=== PATIENT | female | born 1950 | race Caucasian/White ===

== ENCOUNTER 2018-01-18 21:06 | Outpatient (REF) | payer MEDICARE, SELFPAY ==
[2018-01-18 23:10] LABS: HCT 41.4 % (36.0-46.0); HGB 13.8 g/dL (12.0-15.5); Mean Corp. HGB Concentration 33.3 g/dL (32.0-36.0); Mean Corpuscular Hemoglobin 32.5 pg (27.0-33.0); Mean Corpuscular Volume 97.4 fL (80-95); Mean Platelet Volume 10.3 fL (8.0-11.0); Platelet Count 144 x1000/uL (130-400); RBC 4.25 m/cumm (4.00-5.20); RBC Distribution Width 13.3 % (11.7-14.6); White Blood Cell Count 4.64 k/cumm (4.4-10.8)
[2018-01-18 23:33] LABS: ALT 37 U/L (12-78); AST 42 U/L (15-37); Albumin 3.7 g/dL (3.4-5.0); Alkaline Phosphatase 125 U/L (46-116); Anion Gap 8.5 mmol/L (3-11); BUN 9 mg/dL (7-18); CO2 25.5 mmol/L (21.0-32.0); CREATININE 0.53 mg/dL (0.55-1.02); Calcium 8.9 mg/dL (8.5-10.1); Chloride 105 mmol/L (98-107); Glucose 71 mg/dL (70-100); Lipase 87 U/L (73-393); Potassium 3.7 mmol/L (3.5-5.1); Sodium 139 mmol/L (136-145); TSH 0.03 uIU/mL (0.358-3.74); Total Protein 6.9 g/dL (6.4-8.2)
[2018-01-21 09:31] LABS: IgA 330 mg/dL (85-499); Interpretation SEE COMMENTS; Tissue Transglutaminase IgA <1.2 U/mL (<4.0)
== END 2018-01-18 21:26 ==
LOC: NCHCN 21:06
PROVIDERS: PCP Nurse Practitioner Family; Visit Provider Internal Medicine
DX: R10.13 Epigastric pain (principal); E03.9 Hypothyroidism, unspecified
CPT/HCPCS: 80053; 82784; 83516; 83690; 85027; 84443

== ENCOUNTER 2018-03-01 01:49 | Outpatient (CLI) | payer MEDICARE, SELFPAY ==
--- NOTE | 2018-03-01 08:01 | PFT_ITS ---
DATE OF SERVICE: March 01, 2018 REQUESTING PROVIDER: Rico Aburto M.D. INTERPRETATION OF STUDY: Spirometry shows mild obstructive airways disease with significant bronchodilator response. LUNG VOLUMES: Show no evidence of restriction. There is mild hyperinflation. DIFFUSION CAPACITY: Normal. AIRWAYS RESISTANCE: Elevated. IMPRESSION: Mild obstructive airways disease with significant bronchodilator response. This is associated with mild hyperinflation and elevated airways resistance. Clinical correlation recommended. VJ/ct D/T: 03/02 cc: Rico Aburto M.D. SEE SCANNED DOCUMENT IN THE EMR FOR DATA AND GRAPHS
[2018-03-01] MEDS: Inhaler, Assist Device 1 EACH MC (09:09)
[2018-03-01] MEDS: Albuterol HFA 18 GM 200 PUFF INH IH (09:10)
== END 2018-03-01 02:09 ==
PROVIDERS: PCP Nurse Practitioner Family; Visit Provider Internal Medicine
DX: J45.40 Moderate persistent asthma, uncomplicated (principal)
CPT/HCPCS: 94060; 94150; 94726; 94729

== ENCOUNTER 2018-03-11 16:14 | Outpatient (REF) | payer MEDICARE, SELFPAY ==
[2018-03-11 21:08] LABS: Anion Gap 7.3 mmol/L (3-11); BUN 14 mg/dL (7-18); CO2 27.7 mmol/L (21.0-32.0); CREATININE 0.55 mg/dL (0.55-1.02); Chloride 105 mmol/L (98-107); Glucose 88 mg/dL (70-100); Sodium 140 mmol/L (136-145); TSH 0.43 uIU/mL (0.358-3.74)
== END 2018-03-11 16:34 ==
LOC: NCHCN 16:14
PROVIDERS: PCP Nurse Practitioner Family; Visit Provider Internal Medicine
DX: I10 Essential (primary) hypertension (principal); E03.9 Hypothyroidism, unspecified
CPT/HCPCS: 80048; 84443

== ENCOUNTER 2018-03-15 00:07 | Outpatient (CLI) | payer MEDICARE, SELFPAY ==
--- NOTE | 2018-03-15 13:20 | DI.RAD_ITS ---
SYMPTOMS/DIAGNOSIS: SCREENING FOR OSTEOPOROSIS IN POSTMENOPAUSAL WOMAN, Z78.0 DEXA SCAN: Routine examination. No priors for comparison. The single lateral view of the spine shows no compression deformities. Evaluation of the left hip shows a total T score of -0.7 and a Z score of 0.7, which is within normal limits. Evaluation of the lumbar spine shows a total T score of -1.2 and a Z score of 0.7. This is consistent with osteopenia and an increased fracture risk. No osteoporosis is seen. IMPRESSION: Osteopenia in the lumbar spine. No evidence of osteoporosis.
== END 2018-03-15 00:27 ==
PROVIDERS: PCP Nurse Practitioner Family; Visit Provider Internal Medicine
DX: M85.88 Other specified disorders of bone density and structure, other site (principal); Z78.0 Asymptomatic menopausal state
CPT/HCPCS: 77080

== ENCOUNTER 2018-11-04 16:39 | Outpatient (REF) | payer MEDICARE, SELFPAY | END 2018-11-04 16:59 | LOC: NCHCN 16:39 | PROVIDERS: PCP Nurse Practitioner Family; Visit Provider Internal Medicine | DX: E03.9 Hypothyroidism, unspecified (principal) | CPT/HCPCS: 84443 ==

== ENCOUNTER 2018-11-09 08:31 | Outpatient (REF) | payer MEDICARE, SELFPAY ==
[2018-11-09 13:02] LABS: Glucose 77 mg/dL (70-100)
== END 2018-11-09 08:51 ==
LOC: NCHCN 08:31
PROVIDERS: PCP Nurse Practitioner Family; Visit Provider Internal Medicine
DX: E66.9 Obesity, unspecified (principal); Z13.1 Encounter for screening for diabetes mellitus
CPT/HCPCS: 82947

== ENCOUNTER 2019-11-16 13:32 | Outpatient (REF) | payer MEDICARE, SELFPAY ==
[2019-11-16 20:54] LABS: FREE T4 1.39 ng/dL (0.76-1.46); TSH 0.51 uIU/mL (0.36-3.74)
== END 2019-11-16 13:52 ==
LOC: NCHCN 13:32
PROVIDERS: PCP Nurse Practitioner Family; Visit Provider Internal Medicine
DX: E03.9 Hypothyroidism, unspecified (principal)
CPT/HCPCS: 84439; 84443

== ENCOUNTER 2019-12-21 10:55 | Outpatient (REF) | payer MEDICARE, SELFPAY ==
[2019-12-21 20:35] LABS: Abs Immature Grans 0.01 10^3/uL (0.0-0.06); Absolute Basophil Count 0.06 10^3/uL (0.0-0.2); Absolute Eosinophil Count 0.18 10^3/uL (0.0-0.7); Absolute Lymphocyte Count 0.84 10^3/uL (1.2-3.4); Absolute Monocyte Count 0.52 10^3/uL (0.1-0.8); Absolute Neutrophil Count 2.96 10^3/uL (1.2-6.7); Basophils % 1.3; Eosinophils % 3.9; HCT 41.6 % (36.0-46.0); HGB 13.8 g/dL (11.2-15.7); Immature Grans % 0.2; Lymphocytes % 18.4; MCH 32.4 pg (27.0-33.0); MCHC 33.2 % (32.0-36.0); MCV 97.7 fL (80-95); MPV 10.7 fL (8.0-11.0); Monocytes % 11.4; Neutrophils % 64.8; Nucleated RBC 0 %; Platelet Count 159 10^3/uL (130-400); RBC 4.26 10^6/uL (3.93-5.22); RDW 13.2 % (11.7-14.6); RDW-SD 47.7 fL; WBC 4.57 10^3/uL (4.4-10.8)
[2019-12-21 21:24] LABS: ALT 35 U/L (14-59); AST 36 U/L (15-37); Albumin 3.8 g/dL (3.4-5.0); Alkaline Phosphatase 104 U/L (46-116); BUN 15 mg/dL (7-18); Bilirubin, Total 0.9 mg/dL (0.2-1.0); CREATININE 0.48 mg/dL (0.55-1.02); Calcium 9.3 mg/dL (8.5-10.1); Chloride 106 mmol/L (98-107); Glucose 83 mg/dL (74-106); Sodium 141 mmol/L (136-145); Total Protein 6.7 g/dL (6.4-8.2); Vitamin B12 550 pg/mL (193-986)
[2019-12-22 08:39] LABS: Lipase 80 U/L (73-393)
== END 2019-12-21 11:15 ==
LOC: NCHCN 10:55
PROVIDERS: PCP Nurse Practitioner Family; Visit Provider Internal Medicine
DX: R10.13 Epigastric pain (principal)
CPT/HCPCS: 80053; 83690; 82607; 85025

== ENCOUNTER 2021-02-18 16:49 | Outpatient (REF) | payer MEDICARE, SELFPAY ==
[2021-02-18 22:24] LABS: ALT 42 U/L (14-59); AST 40 U/L (15-37); Albumin 3.9 g/dL (3.4-5.0); Alkaline Phosphatase 127 U/L (46-116); Anion Gap 8.8 mmol/L (3-11); BUN 15 mg/dL (7-18); Bilirubin, Total 1.3 mg/dL (0.2-1.0); CO2 27.2 mmol/L (21.0-32.0); CREATININE 0.6 mg/dL (0.55-1.02); Calcium 9.1 mg/dL (8.5-10.1); Calculated LDL 182 mg/dL (<100); Chloride 106 mmol/L (98-107); Cholesterol 290 mg/dL (<200); Glucose 85 mg/dL (74-106); HDL Cholesterol 99 mg/dL (40-60); Magnesium 1.9 mg/dL (1.8-2.4); Sodium 142 mmol/L (136-145); Total Protein 7.1 g/dL (6.4-8.2); Triglyceride 45 mg/dL (<150); Vitamin B12 424 pg/mL (193-986)
== END 2021-02-18 16:50 | disposition home or self-care (01) ==
LOC: NCHCN 16:49
PROVIDERS: PCP Nurse Practitioner Family; Visit Provider Nurse Practitioner Family
DX: E66.9 Obesity, unspecified (principal); G47.00 Insomnia, unspecified; K21.9 Gastro-esophageal reflux disease without esophagitis; E03.9 Hypothyroidism, unspecified; I10 Essential (primary) hypertension
CPT/HCPCS: 80053; 80061; 82607; 83735; 84439; 84443

== ENCOUNTER 2021-09-12 18:29 | Outpatient (REF) | payer MEDICARE, SELFPAY ==
[2021-09-12 20:48] LABS: Absolute Basophil Count 0.06 10^3/uL (0.0-0.2); Absolute Eosinophil Count 0.22 10^3/uL (0.0-0.7); Absolute Lymphocyte Count 0.94 10^3/uL (1.2-3.4); Absolute Monocyte Count 0.57 10^3/uL (0.1-0.8); Absolute Neutrophil Count 1.99 10^3/uL (1.2-6.7); Basophils % 1.6; Eosinophils % 5.8; HGB 14.3 g/dL (11.2-15.7); Lymphocytes % 24.9; MCH 32.4 pg (27.0-33.0); MCHC 33.3 % (32.0-36.0); MCV 98 fL (80-95); MPV 10.2 fL (8.0-11.0); Monocytes % 15.1; Neutrophils % 52.6; Platelet Count 135 10^3/uL (130-400); RBC 4.41 10^6/uL (3.93-5.22); RDW 12.9 % (11.7-14.6); RDW-SD 46.2 fL; WBC 3.78 10^3/uL (4.4-10.8)
[2021-09-12 21:14] LABS: ALT 33 U/L (14-59); AST 37 U/L (15-37); Alkaline Phosphatase 126 U/L (46-116); Anion Gap 9.8 mmol/L (3-11); BUN 11 mg/dL (7-18); Bilirubin, Total 1.5 mg/dL (0.2-1.0); CO2 24.2 mmol/L (21.0-32.0); CREATININE 0.5 mg/dL (0.55-1.02); Calcium 9.2 mg/dL (8.5-10.1); Chloride 107 mmol/L (98-107); Glucose 81 mg/dL (74-106); Magnesium 1.9 mg/dL (1.8-2.4); Potassium 4.1 mmol/L (3.5-5.1); Sodium 141 mmol/L (136-145); TSH (W/Ref FT4) 1.29 uIU/mL (0.36-3.74); Total Protein 6.9 g/dL (6.4-8.2); Vitamin B12 585 pg/mL (193-986)
[2021-09-15 11:05] LABS: CA 125 26 U/mL (<30)
== END 2021-09-12 18:30 | disposition home or self-care (01) ==
LOC: NCHCN 18:29
PROVIDERS: PCP Nurse Practitioner Family; Visit Provider Nurse Practitioner Family
DX: G47.62 Sleep related leg cramps (principal); N83.9 Noninflammatory disorder of ovary, fallopian tube and broad ligament, unspecified
CPT/HCPCS: 80053; 86304; 82607; 83735; 84443; 85025

== ENCOUNTER 2022-10-06 15:02 | Outpatient (REF) | payer MEDICARE, SELFPAY ==
[2022-10-06 21:18] LABS: TSH (W/Ref FT4) 3.43 uIU/mL (0.36-3.74); Vitamin B12 497 pg/mL (193-986)
[2022-10-06 21:59] LABS: Vitamin D 25 Total 48.7 ng/mL (30-100)
== END 2022-10-06 15:03 | disposition home or self-care (01) ==
LOC: NCHCN 15:02
PROVIDERS: PCP Nurse Practitioner Family; Visit Provider Nurse Practitioner Family
DX: E03.9 Hypothyroidism, unspecified (principal); F41.9 Anxiety disorder, unspecified
CPT/HCPCS: 82306; 82607; 84443

== ENCOUNTER → 2022-10-13 08:50 | Outpatient (BNVA) | payer MEDICARE, SELFPAY | PROVIDERS: PCP Nurse Practitioner Family; Referring Provider Nurse Practitioner Family; Visit Provider Nurse Practitioner Adult Health | DX: R41.3 Other amnesia (principal); K76.82 Hepatic encephalopathy | CPT/HCPCS: 99204 ==

== ENCOUNTER 2022-10-20 14:10 | Emergency (ER) | payer MEDICARE, SELFPAY ==
[2022-10-20 14:13] VITALS: BP 133/75; PULSE 95; RESP 20; TEMP 36.7; O2SAT 95
--- NOTE | 2022-10-20 14:30 | DI.RAD_ITS ---
Exam(s) XR PORTABLE CHEST AP EXAM: XR PORTABLE CHEST AP CLINICAL HISTORY: dizzy TECHNIQUE: 2D digital imaging was performed of the chest. One image was obtained. An AP view was ob tained. COMPARISON: No exams were available for comparison FINDINGS: MEDIASTINUM: Normal. HEART: Normal. PULMONARY VASCULATURE: Normal. LUNGS: Clear. PLEURAL SPACE: No pleural effusion or pneumothorax. BONE:Within normal limits for the patient's age. OTHER FINDINGS:Normal. IMPRESSION: No acute pulmonary findings. DATA REPOSITORY: RADIATION DOSE DELIVERED:
--- NOTE | 2022-10-20 14:30 | DI.CT_ITS ---
Exam(s) CT HEAD WO EXAM: CT HEAD WO CLINICAL HISTORY: dizziness. TECHNIQUE: Imaging Protocol: Axial computed tomography images with coronal and sagittal reformatted images were created and reviewed COMPARISON: No exams were available for comparison FINDINGS: Ventricles and Extra axial spaces: Normal in size and morphology for the patient's age. Hemorrhage: None. Cerebral parenchyma: There is no evidence of an acute territorial infarct. There are subtle areas of decreased attenuation in the white matter most consistent with small vessel ischemic disease. Midline shift: None. Brainstem/Cerebellum: Normal. Calvarium: Normal. Visualized Paranasal sinuses/Mastoids: There is mild mucosal thickening in the left maxillary sinus. The remaining visualized paranasal sinuses are clear as are the mastoid air cells. Soft Tissues: Unremarkable. IMPRESSION: 1. No acute intracranial process. 2. Findings were discussed with Dr. Marie Carias at 4:59 p.m. on 10/20/2020. RADIATION DOSE DELIVERED: 610.21mGy.cm Total DLP DATA REPOSITORY: All CT scans at this facility are submitted to the National Radiology Data Registry (NRDR) Dose Index Registry (DIR) with the [employer] (A[employer]). RADIATION OPTIMIZATION: All CT scans at this facility use at least one of these dose optimization te chniques: automated exposure control; mA and/or kV adjustment per patient size (includes targeted exa ms where dose is matched to clinical indication); or iterative reconstruction.
--- NOTE | 2022-10-20 14:46 | ED.GENADUL_ITS ---
Discharge Plan Disposition Patient Disposition: Home Condition: Good Discharge Details Clinical Impression: Vertigo Primary Care Provider: Jacinta Black ED Provider: Kg Carias Home Meds and New Rx's Prescriptions: New meclizine 25 mg tablet 25 mg PO TID PRN (Reason: dizziness) Qty: 30 0RF Continued hyoscyamine sulfate 0.125 mg tablet,disintegrating 0.125 mg PO TID PRN cyclobenzaprine 5 MG tablet 5 mg PO PRN Centrum Silver Women 1 EACH tablet 1 ea PO DAILY albuterol sulfate 90 mcg/actuation HFA aerosol inhaler 2 puff inhalation Q6H PRN Patient Comments: not taking Caltrate 600-D Plus Minerals 600 mg calcium- 800 unit-50 mg tablet 1 tab PO DAILY torsemide 10 mg tablet 10 mg PO QAM montelukast [Singulair] 10 mg tablet 10 mg PO DAILY losartan 25 mg tablet 25 mg PO DAILY fluticasone propionate [Flonase Allergy Relief] 50 mcg/actuation spray,suspension 1 spray intranasal DAILY Qty: 50 0RF Rx Instructions: administer into each nostril pantoprazole 40 mg tablet,delayed release (DR/EC) 40 mg PO DAILY diclofenac sodium 1 % gel 2 g topical QID Rx Instructions: apply to single elbow, wrist or hand; for hand includes palm/fingers/back of hand tramadol 50 mg tablet 50 mg PO DAILY ondansetron 4 mg tablet,disintegrating 4 mg PO Q8H hydroxyzine HCl 25 mg tablet 25 mg PO QHS Patient Comments: not taking Spiriva with HandiHaler 18 mcg capsule, w/inhalation device 1 cap inhalation DAILY Rx Instructions: puncture 1 cap using device; one dose = 2 inhalations fluticasone propion-salmeterol [Advair HFA] 230-21 mcg/actuation HFA aerosol inhaler 2 puff inhalation BID levothyroxine 25 mcg tablet 88 mcg PO DAILY Xifaxan 550 mg tablet 550 mg PO BID Discharge Instructions Instructions: Vertigo (ED) Additional Instructions: You were seen in the emergency department for dizziness. We performed labs, EKG, chest x-ray, and CAT scan your head that were all unremarkable. Your symptoms improved with IV fluids and medications here. You likely have vertigo and more specifically a peripheral form of vertigo. The exact kind is not known. Follow-up with your primary care doctor. Keep your appointment for your MRI. Return for any worsening symptoms. You can try the meclizine prescribed for any dizziness you experienced. Return for any recurrent dizziness that does not get better or any other worsening symptoms. Referrals: Jacinta Black [Primary Care Provider] - 1 week Medical Decision Making 72-year-old female presents with dizziness. Based off exam and history likely experiencing vertigo and most likely a peripheral vertigo. Given her age will get CT head to rule out intracranial hemorrhage or other mass lesion that could be contributing to her symptoms but I think that this is very unlikely. I doubt that this is stroke she has had symptoms persistently since she woke up this morning and went to bed at 9 PM last night but think she has had symptoms for 36 hours. Certainly would not be a candidate for tPA or any other no intervention at this time. No role for more advanced imaging at this time. Doubt other cause of her symptoms. Will get EKG to rule out arrhythmia. Doubt ACS but will check EKG and cardiac enzymes. We will get broad labs look for GI or metabolic cause of the patient's symptoms. Will get chest x-ray to evaluate for pneumonia or pneumothorax. Doubt other cause of her symptoms. We will treat for vertigo and await initial testing and reevaluate. 453pm Imaging unremarkable. Labs EKG unremarkable. Markedly improved and feels better. Would like to leave. Will discharge with return precautions. Has follow-up with primary care and an MRI coming up. Medical Records Medical records reviewed: Yes I reviewed the patient's medical records. Imaging Data Radiologic Study: Attestation: I personally reviewed and interpreted this imaging study as follows: Imaging: CT Scan (head) Radiologist's impression: unremarkable Radiologic Study #2: Attestation: I personally reviewed and interpreted this imaging study as follows: Imaging: X-Ray (chest) My impression: unremarkable Lab Data Lab results reviewed: Yes I reviewed the patient's lab results. ECG Data Attestation: I personally reviewed and interpreted this ECG (s) as follows: Prior ECG tracings: available for review Interpretation: Normal sinus rhythm and normal rate. Normal intervals with no ST or T wave changes. Otherwise unremarkable EKG. HPI General Mode of arrival: ambulatory . Date/Time Provider Initiated Documentation: 10/20/22 14:28 . Limitations to Documentation: no limitations . Information obtained by: patient and family () . HPI Narrative: 72-year-old female presents with dizziness. Has had the symptoms for about 36 hours. Started on Wednesday night. She feels dizzy all over and feels like she has a negative tone in both of her ears. No loss of hearing. No loss of vision. She feels nauseous with this. Denying any other symptoms. Has never experienced anything like this before. Feels like the room is spinning and it causes her some difficulty with walking. She actually walked to her healthcare clinic today who referred here for further evaluation. No fevers or chills. No cough. No chest pain or shortness of breath. No belly pain or any diarrhea or constipation or any black or bloody stools. Related Data Home Medications Medication Instructions Recorded Confirmed cyclobenzaprine 5 mg tablet 5 mg PO PRN 07/12/17 10/20/22 multivit with 1 ea PO DAILY 07/12/17 10/20/22 cqxfkhaf-zhbq-XK-lutein 8 mg iron-400 mcg-300 mcg tablet (Centrum Silver Women) albuterol sulfate 90 mcg/actuation 2 puff inhalation Q6H PRN 03/05/22 10/13/22 aerosol inhaler calcium 600 mg-D3 800 unit-mag11 1 tab PO DAILY 03/05/22 10/20/22 50 sg-yhrc-dnfapg-william-s.borat tablet (Caltrate 600-D Plus Minerals) diclofenac sodium 1 % topical gel 2 g topical QID 03/05/22 10/20/22 fluticasone propionate 230 2 puff inhalation BID 03/05/22 10/20/22 mcg-salmeterol 21 mcg/actuation HFA inhaler (Advair HFA) fluticasone propionate 50 1 spray intranasal DAILY #50 grams 03/05/22 10/20/22 mcg/actuation nasal spray,suspension (Flonase Allergy Relief) hydroxyzine HCl 25 mg tablet 25 mg PO QHS 03/05/22 10/13/22 losartan 25 mg tablet 25 mg PO DAILY 03/05/22 10/20/22 montelukast 10 mg tablet 10 mg PO DAILY 03/05/22 10/20/22 (Singulair) ondansetron 4 mg disintegrating 4 mg PO Q8H 03/05/22 10/20/22 tablet pantoprazole 40 mg tablet,delayed 40 mg PO DAILY 03/05/22 10/20/22 release tiotropium bromide 18 mcg capsule 1 cap inhalation DAILY 03/05/22 10/20/22 with inhalation device (Spiriva with HandiHaler) torsemide 10 mg tablet 10 mg PO QAM 03/05/22 10/20/22 tramadol 50 mg tablet 50 mg PO DAILY 03/05/22 10/20/22 hyoscyamine sulfate 0.125 mg 0.125 mg PO TID PRN 10/13/22 10/20/22 disintegrating tablet levothyroxine 25 mcg tablet 88 mcg PO DAILY 10/13/22 10/20/22 rifaximin 550 mg tablet (Xifaxan) 550 mg PO BID 10/13/22 10/20/22 meclizine 25 mg tablet 25 mg PO TID PRN dizziness #30 tabs 10/20/22 Previous Rx's Medication Instructions Recorded fluticasone propionate 50 1 spray intranasal DAILY #50 grams 03/05/22 mcg/actuation nasal spray,suspension (Flonase Allergy Relief) meclizine 25 mg tablet 25 mg PO TID PRN dizziness #30 tabs 10/20/22 Allergies Allergy/AdvReac Type Severity Reaction Status Date / Time kiwi Allergy Intermediate TONGUE/FACIAL Unverified 10/13/22 09:04 SWELLING ENVIRONMENTAL Allergy Uncoded 10/13/22 09:04 OPIATES AdvReac HALLUCINATI Uncoded 10/13/22 09:04 ONS General Stated Complaint: Dizzy/Sync TESS: 3 Review of Systems Constitutional Constitutional: Denies chills, Denies fever(s) and Denies headache(s) Eyes Eyes: Denies change in vision ENT Ears, Nose, Mouth, and Throat: Reports vertigo, Reports dizziness, Denies headache(s) and Denies odynophagia Cardiovascular Cardiovascular: Denies chest pain and Denies dyspnea Respiratory Respiratory: Denies dyspnea Gastrointestinal Gastrointestinal: Denies abdominal pain, Denies diarrhea, Reports nausea, Denies odynophagia and Denies vomiting Genitourinary Genitourinary: Denies dysuria Musculoskeletal Musculoskeletal: Denies myalgias Integumentary/Breasts Skin/Breast: Denies changing lesions Neurologic Neurologic: Denies behavioral changes, Reports vertigo, Reports dizziness and Denies headache(s) Psychiatric Psychiatric: Denies behavioral changes Endocrine Endocrine: Denies heat intolerance Hematologic/Lymphatic Hematologic/Lymphatic: Denies lymphadenopathy PFSH All Active Problems (Updated 10/20/22 @ 16:54 by Kg Carias MD) Memory deficit (Acute) Hepatic encephalopathy (Acute) Vertigo (Acute) Medical History Abdominal mass Abdominal pain in female Anxiety Asthma Chronic insomnia Cirrhosis of liver Forgetfulness GERD (gastroesophageal reflux disease) Hx of adenomatous polyp of colon Hx of polymyalgia rheumatica Hypercholesterolemia Hypertension Hypothyroidism Leukocytosis Low back pain Macular degeneration of both eyes Mammogram abnormal Memory loss Mesenteric lymphadenitis Nocturnal leg cramps Obesity (BMI 35.0-39.9 without comorbidity) Osteoarthritis of knee Osteopenia Ovarian mass Peripheral edema Portal vein thrombosis Rectal prolapse Schatzki's ring Seasonal allergies Shoulder pain, bilateral Skin lesion Skin lesions, generalized Surgical History H/O: hysterectomy Social History Smoking/Tobacco Use Status: Never Smoking risk assessment performed?: Yes Alcohol Intake: never Substance use type: does not use Exam Const General: cooperative Nutritional Appearance: average body habitus Orientation: alert, awake and oriented x3 HENMT Head: normal to inspection Ears: external ears normal Mouth: moist mucous membranes Eyes Pupils: PERRL EOM: EOM intact bilaterally and No nystagmus Neck Neck: full ROM and no tracheal deviation Chest Chest: normal inspection of the chest Resp Auscultation: clear to auscultation bilaterally Cardio Rate: regular rate Rhythm: regular rhythm GI Inspection: normal to inspection Palpation: soft, no guarding, not rigid and nontender Back/Spine/Pelvis Back: No no CVA tenderness Thoracic/Lumbar Spine: thoracic and lumbar spine normal to inspection Skin General skin exam: no rashes or lesions noted Neuro General: patient alert, patient awake and patient oriented x3 Cranial Nerves: CN's II-XI intact bilaterally, PERRL, EOM intact bilaterally, no nystagmus and no nystagmus Cognition: normal cognition Motor: muscle tone normal throughout and strength 5/5 throughout Sensory Exam: no sensory deficits noted Coordination: olqqlh-ze-hshb test normal Extrem General: normal to inspection Course Vital Signs Vital signs: Vital Signs Temperature 36.7 C 10/20/22 14:13 Pulse 95 H 10/20/22 14:13 Respiratory Rate 20 10/20/22 14:13 Blood Pressure 133/75 10/20/22 14:13 Pulse Oximetry 95 10/20/22 14:13 Temperature 36.7 C 10/20/22 14:13 Temperature Source Temporal Artery Scan 10/20/22 14:13 Pulse 95 H 10/20/22 14:13 Respiratory Rate 20 10/20/22 14:13 Respiratory Effort Normal 10/20/22 14:17 Blood Pressure 133/75 10/20/22 14:13 Blood Pressure Position Sitting 10/20/22 14:13 Pulse Oximetry 95 10/20/22 14:13 Oxygen Delivery Method Room Air 10/20/22 14:13 Oxygen Flow Rate 0 10/20/22 14:13
[2022-10-20] MEDS: Meclizine 25 MG TAB PO (15:00)
[2022-10-20] MEDS: Normal Saline 1,000 ML 1000 ML IV (15:00)
[2022-10-20] MEDS: Ondansetron 4 MG/2 ML VIAL IVP (15:00)
[2022-10-20 15:09] LABS: Abs Immature Grans 0.01 10^3/uL (0.0-0.06); Absolute Basophil Count 0.06 10^3/uL (0.0-0.2); Absolute Eosinophil Count 0.13 10^3/uL (0.0-0.7); Absolute Lymphocyte Count 0.58 10^3/uL (1.2-3.4); Absolute Monocyte Count 0.55 10^3/uL (0.1-0.8); Absolute Neutrophil Count 3.42 10^3/uL (1.2-6.7); Basophils % 1.3; Eosinophils % 2.7; HCT 41.8 % (36.0-46.0); HGB 14.1 g/dL (11.2-15.7); Immature Grans % 0.2; Lymphocytes % 12.2; MCH 32.7 pg (27.0-33.0); MCHC 33.7 % (32.0-36.0); MCV 97 fL (80-95); Monocytes % 11.6; Platelet Count 145 10^3/uL (130-400); RBC 4.31 10^6/uL (3.93-5.22); RDW 12.9 % (11.7-14.6); RDW-SD 45.5 fL; WBC 4.75 10^3/uL (4.4-10.8)
[2022-10-20 15:26] LABS: ALT 38 U/L (14-59); AST 40 U/L (15-37); Albumin 3.5 g/dL (3.4-5.0); Alkaline Phosphatase 114 U/L (46-116); Anion Gap 6.8 mmol/L (3-11); BUN 14 mg/dL (7-18); Bilirubin, Total 1.2 mg/dL (0.2-1.0); CO2 28.2 mmol/L (21.0-32.0); CREATININE 0.8 mg/dL (0.55-1.02); Calcium 8.7 mg/dL (8.5-10.1); Chloride 104 mmol/L (98-107); Estimated GFR 78.24 (mL/min/1.73m2); Glucose 92 mg/dL (74-106); Magnesium 1.8 mg/dL (1.8-2.4); Potassium 3.7 mmol/L (3.5-5.1); Sodium 139 mmol/L (136-145); Total Protein 6.7 g/dL (6.4-8.2); Troponin I < 50 ng/L (<or=60)
== END 2022-10-20 17:09 | disposition home or self-care (01) ==
PROVIDERS: Emergency Provider Student in an Organized Health Care Education/Training Program; PCP Nurse Practitioner Family
DX: R42 Dizziness and giddiness (principal); R11.0 Nausea
CPT/HCPCS: 80053; 96361; 96374; 99284; 70450; 71045; 83735; 84484; 85025; J2405

== ENCOUNTER 2022-11-06 01:01 | Outpatient (CLI) | payer MEDICARE, SELFPAY ==
--- NOTE | 2022-11-06 08:07 | DI.MRI_ITS ---
Exam(s) MR BRAIN WO EXAM: MR BRAIN WO CLINICAL HISTORY: memory changes, R41.3 TECHNIQUE: Multiplanar multisequence MRI of the brain was performed. COMPARISON: CT CT HEAD WO from 10/20/2022 FINDINGS: VENTRICLES AND EXTRA AXIAL SPACES: Normal in size and morphology for the patient's age. MIDLINE SHIFT: None. CEREBRAL PARENCHYMA: No focus of restricted diffusion to suggest acute infarct. No space-occupying le meron identified. There are multiple areas of hyperintense signal seen in the white matter on the FLAI R and T2 weighted images most consistent with small vessel ischemic disease. HEMORRHAGE: None. BRAINSTEM/CEREBELLUM: Normal. CALVARIUM: Normal. VISUALIZED PARANASAL SINUSES/MASTOIDS:Clear. [place]: Normal flow void. PITUITARY GLAND: There is a partially empty sella. OTHER FINDINGS: None. IMPRESSION: 1. Age-related cerebral atrophy and small vessel ischemic disease is present. 2. There is no evidence of an acute infarct. DATA REPOSITORY:
== END 2022-11-06 01:21 ==
LOC: DI 01:01
PROVIDERS: PCP Nurse Practitioner Family; Visit Provider Nurse Practitioner Adult Health
DX: R41.3 Other amnesia (principal); I67.89 Other cerebrovascular disease
CPT/HCPCS: 70551

== ENCOUNTER → 2022-11-11 09:46 | Outpatient (BNVA) | payer MEDICARE, SELFPAY | PROVIDERS: PCP Nurse Practitioner Family; Referring Provider Nurse Practitioner Family; Visit Provider Nurse Practitioner Adult Health | DX: G31.84 Mild cognitive impairment of uncertain or unknown etiology (principal); K76.82 Hepatic encephalopathy | CPT/HCPCS: 99214 ==

== ENCOUNTER 2022-11-19 13:15 | Outpatient (REF) | payer MEDICARE, SELFPAY ==
[2022-11-19 15:33] LABS: Hemoglobin A1C 5.1 % (<5.7)
[2022-11-19 15:48] LABS: ALT 31 U/L (14-59); AST 45 U/L (15-37); Albumin 3.5 g/dL (3.4-5.0); Alkaline Phosphatase 107 U/L (46-116); Anion Gap 8.3 mmol/L (3-11); BUN 13 mg/dL (7-18); Bilirubin, Total 0.9 mg/dL (0.2-1.0); CO2 29.7 mmol/L (21.0-32.0); CREATININE 0.7 mg/dL (0.55-1.02); Calcium 8.5 mg/dL (8.5-10.1); Chloride 104 mmol/L (98-107); Estimated GFR 91.83 (mL/min/1.73m2); Glucose 87 mg/dL (74-106); NT-proBNP 203 pg/mL (<300); Potassium 3.9 mmol/L (3.5-5.1); Sodium 142 mmol/L (136-145); Total Protein 6.3 g/dL (6.4-8.2)
== END 2022-11-19 13:16 | disposition home or self-care (01) ==
LOC: NCHCN 13:15
PROVIDERS: PCP Nurse Practitioner Family; Visit Provider Family Medicine
DX: H81.399 Other peripheral vertigo, unspecified ear (principal); R60.9 Edema, unspecified; K76.0 Fatty (change of) liver, not elsewhere classified
CPT/HCPCS: 80053; 83036; 83880

== ENCOUNTER 2022-11-24 02:17 | Outpatient (CLI) | payer MEDICARE, SELFPAY ==
--- NOTE | 2022-11-24 07:30 | DI.US_ITS ---
APPROVED REPORT EXAM: Comprehensive 2D, Doppler, and color-flow Echocardiogram Patient Location: Out-Patient Director Of Database Marketing: Jama Hsieh RDMS RVT Indications: edema Other Information Study Quality: Adequate Conclusion Normal left ventricular wall thickness and chamber size. Ejection fraction is 55%. Wall motion is n ormal Normal right ventricular size and systolic function Both atria are normal in size Aortic valve is sclerotic and trileaflet without stenosis or regurgitation Moderate mitral annular calcification. Trivial mitral regurgitation Estimated right ventricular systolic pressure is 30 mmHg Borderline dilated ascending aorta 3.3 cm Wall motion Left Ventricle The left ventricle is normal size. The left ventricular systolic function is normal. The left ventric ular ejection fraction is within the normal range. There is normal left ventricular wall thickness. T here is normal LV segmental wall motion. There is no ventricular septal defect visualized. LVEF is 55 %. Right Ventricle The right ventricle is normal size. The right ventricular systolic function is normal. The RVSP is 29 .6 mmHg. Atria The left atrium size is normal. The right atrium size is normal. Aortic Valve The aortic valve is sclerotic Aortic valve is trileaflet. There is no aortic valvular stenosis. No ao rtic regurgitation is present. Mitral Valve Moderate mitral annular calcification. No evidence of mitral valve stenosis. Trivial mitral regurgita tion. Tricuspid Valve The tricuspid valve is normal in structure. There is no tricuspid valve stenosis. Trace tricuspid reg urgitation. Pulmonic Valve The pulmonary valve is normal in structure. There is no pulmonic valvular stenosis. Trace pulmonic re gurgitation. Great Vessels The aortic root is normal in size. The ascending aorta is borderline dilated. Aortic arch is normal i n caliber. IVC is normal in size and collapses >50% with inspiration. Pericardium There is no pericardial effusion. 2D Dimensions IVSD d PLAX 0.62 cm F: 0.6-1.0 LV Vol A2C d MOD 105.5 mL LVPW d PLAX 0.66 cm F: 0.6 - 1.0 LV Vol A4C d MOD 115.6 mL LVID d PLAX 4.11 cm F: 3.8 - 5.2 LA Area A4C s MOD 23.98 cm2 LVDs 3.00 cm F: 2.2 - 3.5 LV EF A4C MOD 53.4 % Ao Root d 3.03 cm F: 2.7 - 3.3 LV EF A2C MOD 54.6 % Ao Asc Diam d 3.30 cm F: 2.3 - 3.1 LV EF Biplane MOD 55.5 % LV EF Teichholz 52.8 % SV 65.18 mL LVEF (Farooq's) 55.52 % F: 54 - 74 LV Volume 117.41 mL F: 46 - 106 LV Volume Index 65.59 mL/m2 F: 29 - 61 LV Vol Biplane MOD 117.4 mL FS 26.80 % M-Mode TAPSE 2.08 cm (M/F) >1.7 LV Diastology MV E' medial 0.079 (>0.07 m/s) E/A Ratio 1.0 LV E/e MED 14.65 (<14) MV E Vmax 1.17 (0.4-1.3 m/s) MV E' lateral 0.095 (>0.1 m/s) MV A Vmax 1.15 (0.4-1.3 m/s) LV E/e LAT 12.20 (<14) MV E/A Ratio 1.01 MV E/E' medial 14.68 MV E/E' lateral 12.23 Aortic Valve LVOT Area 3.48 cm2 AoV Area Vmax 2.66 cm2 LVOT Vmax 1.11 m/s AoV Area/ BSA (Vmax) 1.48 cm2/m2 LVOT Mean Ivan. 0.67 m/s EFRAIN Mean Ivan. 2.33 cm2 LVOT Peak Grad 5.0 mmHg EFRAIN Mean Ivan. Index 1.30 cm2/m2 LVOT Mean Grad 2.2 mmHg LVOT VTI 0.305 m LVOT Diam s 2.10 cm AoV Vmax 1.46 m/s Velocity Ratio 0.76 AoV Mean Ivan. 1.00 m/s AoV Peak Grad 8.5 mmHg LVOT SV 105.87 mL AoV Mean Grad 4.5 mmHg AoV VTI 0.353 m AoV Area VTI 3.00 cm2 AoV Area/ BSA (VTI) 1.67 cm/m2 Mitral Valve MV DT 189 (160-240 msec) MV PHT 55 msec MV Area PHT 4.02 cm2 MV VTI 0.471 m MV Area VTI 2.25 (4.0-6.0 cm2) Pulmonary Valve PV Vmax 0.93 (0.5-1.5 m/s) RVOT Peak Gr. 1.84 mmHg PV Peak Grad 3.5 mmHg RVOT Mean Gr. 1.05 mmHg PV Mean Grad 1.8 mmHg RVOT VTI 0.178 m PV VTI 0.228 m RVOT Vmax 0.68 m/s Tricuspid Valve TR Peak Grad 26.5 mmHg TR Vmax 2.58 m/s RA Pressure 3.00 mmHg RVSP (TR) 29.6 mmHg
== END 2022-11-24 02:37 ==
LOC: DI 02:17
PROVIDERS: PCP Nurse Practitioner Family; Visit Provider Family Medicine
DX: R60.9 Edema, unspecified (principal)
CPT/HCPCS: 93306

== ENCOUNTER 2022-11-30 15:35 | Outpatient (REF) | payer MEDICARE, SELFPAY ==
[2022-11-30 21:50] LABS: Anion Gap 8.5 mmol/L (3-11); BUN 14 mg/dL (7-18); CO2 27.5 mmol/L (21.0-32.0); CREATININE 0.7 mg/dL (0.55-1.02); Calcium 8.8 mg/dL (8.5-10.1); Chloride 105 mmol/L (98-107); Estimated GFR 91.83 (mL/min/1.73m2); Glucose 94 mg/dL (74-106); Potassium 4.3 mmol/L (3.5-5.1); Sodium 141 mmol/L (136-145)
== END 2022-11-30 15:36 | disposition home or self-care (01) ==
LOC: NCHCN 15:35
PROVIDERS: PCP Nurse Practitioner Family; Visit Provider Nurse Practitioner Family
DX: R42 Dizziness and giddiness (principal); D72.829 Elevated white blood cell count, unspecified
CPT/HCPCS: 80048

== ENCOUNTER 2022-12-01 01:25 | Outpatient (CLI) | payer MEDICARE, SELFPAY ==
--- NOTE | 2022-12-01 13:30 | DI.US_ITS ---
Exam(s) US ABDOMEN LIMITED EXAM: US ABDOMEN LIMITED CLINICAL HISTORY: ASCITES, R18.8; EVAL FOR PROGRESSION OF LIVER DISEASE, ASCITES TECHNIQUE: Ultrasound abdomen performed using standard protocol. COMPARISON: US ABDOMEN ULTRASOUND (P) from 10/27/2013 FINDINGS: PANCREAS: Normal where visualized. LIVER: Normal. Hepatopedal flow in the Portal Vein. The liver measures in 12.3 cm length. GALLBLADDER:Status post cholecystectomy. BILIARY SYSTEM: Common bile duct measures 7.9 mm. No intrahepatic biliary ductal dilation. RIGHT KIDNEY: Kidney is normal in size. No evidence of renal calculi. No evidence of hydronephrosis. No renal mass or cyst identified. ASCITES: None seen. IMPRESSION: 1. No evidence of a hepatic mass. 2. No evidence of abdominal ascites. DATA REPOSITORY:
== END 2022-12-01 01:45 ==
LOC: DI 01:26
PROVIDERS: PCP Nurse Practitioner Family; Visit Provider Family Medicine
DX: R18.8 Other ascites (principal)
CPT/HCPCS: 76705

== ENCOUNTER 2023-01-11 13:36 | Outpatient (REF) | payer MEDICARE, SELFPAY ==
[2023-01-11 15:12] LABS: Anion Gap 6.3 mmol/L (3-11); BUN 13 mg/dL (7-18); CO2 28.7 mmol/L (21.0-32.0); CREATININE 0.6 mg/dL (0.55-1.02); Calcium 8.8 mg/dL (8.5-10.1); Chloride 104 mmol/L (98-107); Estimated GFR 95.31 (mL/min/1.73m2); Glucose 80 mg/dL (74-106); Potassium 4.3 mmol/L (3.5-5.1); Sodium 139 mmol/L (136-145)
== END 2023-01-11 13:37 | disposition home or self-care (01) ==
LOC: NCHCN 13:36
PROVIDERS: PCP Nurse Practitioner Family; Visit Provider Nurse Practitioner Family
DX: I10 Essential (primary) hypertension (principal); K76.6 Portal hypertension; R74.8 Abnormal levels of other serum enzymes; R79.89 Other specified abnormal findings of blood chemistry
CPT/HCPCS: 80048

== ENCOUNTER 2023-09-24 13:50 | Outpatient (REF) | payer MEDICARE, SELFPAY ==
[2023-09-24 14:57] LABS: ALT 36 U/L (14-59); AST 49 U/L (15-37); Albumin 3.8 g/dL (3.4-5.0); Alkaline Phosphatase 106 U/L (46-116); Anion Gap 11.2 mmol/L (3-11); BUN 10 mg/dL (7-18); Bilirubin, Total 1.4 mg/dL (0.2-1.0); CO2 24.8 mmol/L (21.0-32.0); CREATININE 0.5 mg/dL (0.55-1.02); Calcium 9.3 mg/dL (8.5-10.1); Calculated LDL 186 mg/dL (<100); Chloride 107 mmol/L (98-107); Cholesterol 295 mg/dL (<200); Estimated GFR 99.59 (mL/min/1.73m2); Glucose 79 mg/dL (74-106); HDL Cholesterol 102 mg/dL (40-60); Potassium 4.1 mmol/L (3.5-5.1); Sodium 143 mmol/L (136-145); TSH (W/Ref FT4) 6.54 uIU/mL (0.36-3.74); Total Protein 6.5 g/dL (6.4-8.2); Triglyceride 39 mg/dL (<150)
[2023-09-24 15:01] LABS: Vitamin D 25 Total 51.6 ng/mL (30-100)
[2023-09-24 15:15] LABS: FREE T4 1.23 ng/dL (0.76-1.46)
== END 2023-09-24 13:51 | disposition home or self-care (01) ==
LOC: NCHCN 13:50
PROVIDERS: PCP Nurse Practitioner Family; Visit Provider Family Medicine
DX: I10 Essential (primary) hypertension (principal); E55.9 Vitamin D deficiency, unspecified
CPT/HCPCS: 80053; 80061; 82306; 84439; 84443

== ENCOUNTER 2023-09-28 15:07 | Outpatient (REF) | payer MEDICARE, SELFPAY ==
[2023-09-28 15:03] LABS: Abs Immature Grans 0.01 10^3/uL (0.0-0.06); Absolute Basophil Count 0.06 10^3/uL (0.0-0.2); Absolute Eosinophil Count 0.31 10^3/uL (0.0-0.7); Absolute Lymphocyte Count 0.78 10^3/uL (1.2-3.4); Absolute Monocyte Count 0.46 10^3/uL (0.1-0.8); Absolute Neutrophil Count 1.64 10^3/uL (1.2-6.7); Basophils % 1.8 %; Eosinophils % 9.5 %; HCT 39.4 % (36.0-46.0); HGB 13.1 g/dL (11.2-15.7); Immature Grans % 0.3 %; Lymphocytes % 23.9 %; MCH 32.8 pg (27.0-33.0); MCHC 33.2 % (32.0-36.0); MCV 99 fL (80-95); MPV 10.1 fL (8.0-11.0); Monocytes % 14.1 %; Neutrophils % 50.4 %; Platelet Count 148 10^3/uL (130-400); RBC 3.99 10^6/uL (3.93-5.22); RDW 13.6 % (11.7-14.6); RDW-SD 49.8 fL; WBC 3.26 10^3/uL (4.4-10.8)
[2023-09-28 15:34] LABS: TSH 9.69 uIU/Ml (0.36-3.74)
== END 2023-09-28 15:08 | disposition home or self-care (01) ==
LOC: NCHCN 15:07
PROVIDERS: PCP Nurse Practitioner Family; Visit Provider Nurse Practitioner Family
DX: E03.9 Hypothyroidism, unspecified (principal); R10.9 Unspecified abdominal pain
CPT/HCPCS: 84443; 85025

== ENCOUNTER → 2023-10-12 09:46 | Outpatient (BNVA) | payer MEDICARE, SELFPAY | PROVIDERS: PCP Nurse Practitioner Family; Visit Provider Nurse Practitioner Adult Health | DX: G31.84 Mild cognitive impairment of uncertain or unknown etiology (principal) | CPT/HCPCS: 99215 ==

== ENCOUNTER 2023-11-04 20:45 | Outpatient (REF) | payer MEDICARE, SELFPAY ==
--- OUTSIDE RECORDS SUMMARY | 2023-11-04 20:52 | XMS_ITS | Patient Health Record ---
Author Name Unknown [facility] Address [address] [place] [address] Care Team Providers Care Ingredient Handler Name Role Phone KATHARINE FIGUEROA MD Primary Care Provider Unavail able Gavin Patrick [phone] ALLERGIES Allergen (clinical drug ingredient) Drug/Non Drug Allergy documented on EMR Reaction Allergy Type Onset Date Status Percodan (uncoded) Unknown Allergy A ctive PredniSONE Unknown Drug Allergy Active REASON FOR REFERRAL No Information MEDICATIONS Medication SIG (Take, Route, Frequency, Duration) Notes Start Date End Date Status Cetirizine HCl 10 MG 1 tablet Orally Onc e a day for 30 day(s) Not-Taking Fluticasone Propionate 50 MCG/ACT 1 spray in each nostril Nasally Once a day for 30 day(s) Active Voltaren 1 % as directed Transdermal Four times a day 01/31/2019 Active Ventolin HFA 108 (90 Base) MCG/ACT 2 puffs as needed Inhalation every 6 hrs Active Temovate 0.05 % 1 application to affected area Externally Twice a day for 10 day(s) PRN Active Torsemide 10 MG 1 tablet Orally Once a day for 30 day(s) PRN Active Cyclobenzaprine HCl 10 MG 1 tablet as ne eded Orally once a day Active Omeprazole 20 MG 1 capsule Orally Onc e a day for 30 day(s) Active Dulera 200-5 MCG/ACT 2 puffs Inhalation Twice a day Active Ibuprofen 800 MG 1 tablet with food o r milk as needed Orally Three times a day PRN Active Levothyroxine Sodium 112 MCG 1 tablet on an empty stomach in the morning Orally Once a day for 30 day(s) Active SOCIAL HISTORY Tobacco Use: Social History Observation Description Date Details (start date - stop date) Never Smoker NA - NA Sex Assigned At : Social History Observation Description Sex Assigned At Unknown SMOKING Question Answer Notes Are you a: nonsmoker PROBLEMS Problem Type ICD Code Onset Dates Problem Status W/U Status Risk SNOMED Code Notes Problem Neuritis of foot (G57.90) Active confirmed Mononeuropathy of lower limb (215472627) Problem Arthritis, 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) Active confirmed Osteoarthritis (572434507) PLAN OF TREATMENT No Information Insurance Providers Payer Name Payer Address Payer Phone Subscriber Number Group Number Insured Name Patient Relationship to Insured Coverage Start Date Coverage End Date MEDICARE [address] [place], [place] [id number] VLADIMIR JONES Self - patient is the insured [employer] [address] [place] [address] [id number] VLADIMIR JONES Self - patient is the insured [place] [address] VLADIMIR JONES Self - patient is the insured MEDICAL (GENERAL) HISTORY Medical History History ICD Code Obesity E66.9 Chronic insomnia F51.04 Peripheral edema R60.9 Hypertension I10 Osteopenia M85.80 Rectal prolapse K62.3 Osteoarthritis, knee M17.9 Myalgia M79.10 GERD (gastroesophageal reflux disease) K 21.9 TMJ (temporomandibular joint syndrome) M 26.609 Leg cramps, sleep related G47.62 Anxiety F41.9 Asthma J45.909 Portal vein thrombosis I81 Seasonal allergies J30.2 History of polymyalgia rheumatica Z87.39 Hypercholesterolemia E78.00 Hypothyroidism E03.9 Abnormal mammogram of left breast R92.8 Surgical History Surgery Date(Month/Year) double knee replacement @ [facility] 11/25/15
[2023-11-04 21:05] LABS: HCT 40.4 % (36.0-46.0); HGB 13.7 g/dL (11.2-15.7); MCH 33.5 pg (27.0-33.0); MCHC 33.9 % (32.0-36.0); MCV 99 fL (80-95); Platelet Count 134 10^3/uL (130-400); RBC 4.09 10^6/uL (3.93-5.22); RDW 12.9 % (11.7-14.6); RDW-SD 46.9 fL; WBC 5.46 10^3/uL (4.4-10.8)
[2023-11-04 21:10] LABS: ALT 42 U/L (14-59); AST 49 U/L (15-37); Albumin 3.8 g/dL (3.4-5.0); Alkaline Phosphatase 123 U/L (46-116); BUN 16 mg/dL (7-18); Bilirubin, Total 1.25 mg/dL (0.2-1.0); CREATININE 0.5 mg/dL (0.55-1.02); Calcium 9.3 mg/dL (8.5-10.1); Chloride 105 mmol/L (98-107); Estimated GFR 98.97 (mL/min/1.73m2); Glucose 85 mg/dL (74-106); Potassium 3.9 mmol/L (3.5-5.1); Sodium 140 mmol/L (136-145); Total Protein 6.4 g/dL (6.4-8.2)
== END 2023-11-04 20:46 | disposition home or self-care (01) ==
LOC: NCHCN 20:45
PROVIDERS: PCP Nurse Practitioner Family; Visit Provider Family Medicine
DX: K76.0 Fatty (change of) liver, not elsewhere classified (principal)
CPT/HCPCS: 80053; 85027

== ENCOUNTER 2023-12-01 20:46 | Outpatient (REF) | payer MEDICARE, SELFPAY ==
[2023-12-01 16:02] LABS: ALT 36 U/L (14-59); AST 41 U/L (15-37); Albumin 3.5 g/dL (3.4-5.0); Alkaline Phosphatase 115 U/L (46-116); Bilirubin, Direct 0.4 mg/dL (0.0-0.2); TSH 2.71 uIU/Ml (0.36-3.74); Total Protein 5.8 g/dL (6.4-8.2)
[2023-12-01 16:19] LABS: Cholesterol 193 mg/dL (<200); HDL Cholesterol 99 mg/dL (40-60)
[2023-12-01 16:20] LABS: Triglyceride <25 mg/dL (<150)
[2023-12-01 16:39] LABS: LDL CHOLESTEROL 86 mg/dL (<100)
== END 2023-12-01 20:47 | disposition home or self-care (01) ==
LOC: NCHCN 20:46
PROVIDERS: PCP Nurse Practitioner Family; Visit Provider Nurse Practitioner Family
DX: Z00.00 Encounter for general adult medical examination without abnormal findings (principal)
CPT/HCPCS: 80061; 80076; 83721; 84443

== ENCOUNTER 2024-01-11 15:19 | Outpatient (REF) | payer MEDICARE, SELFPAY ==
--- OUTSIDE RECORDS SUMMARY | 2024-01-11 15:24 | XMS_ITS | Referral Summary ---
Author Organization [facility] Address [address] [place] [address] Care Team Providers Care Business Unit Leader Name Role Phone Jacinta Black APRN Primary Care Provider [phone] Encounters Date Type Department Care Team Description 01/02/2024 19:21 EDT - 01/04/2024 14:26 EDT Hospital Encounter [facility] Medical / Surgical Department [address] [place] [address] Mone Tyler MD Wagner, Beth Ellen, DO Nelson, Ra Davenport MD Aphasia due to acute cerebrovascular accident (CVA) ([facility]) (Primary Dx); Acute cerebrovascular accident (CVA) ([facility]) [I63.9]; Expressive aphasia; TIA (transient ischemic attack) Discharge Disposition: Home-Health Care [facility] [place] 01/02/2024 Telephone [facility] [address], [place] [id number] Lucero Cano MD Aphasia from Last 3 Months Allergies Active Allergy Reactions Criticality Noted Date Comments House Dust 11/29/2021 CIS - Allergic Rhinitis Kiwi Other (See Comments) 07/12/2017 Oxycodone-Acetaminophe n Other (See Comments) 03/27/2011 Dizziness Oxycodone-Aspirin Other (See Comments) High 09/22/19 12 Patient states it makes her very dizzy Severe dizziness Patient states it makes her very dizzy Severe dizziness Prednisone Other (See Comments) 01/31/2019 Other reaction(s): Unknown Medications Medication Sig Dispensed Refills Start Date End Date Status diclofenac sodium gel 1 mg. 09/29/2021 Active fluticasone propion-salmeter oL (ADVAIR) 250-50 mcg/dose diskus inhaler Inhale 1 Puff as directed every 12 hours. Active pantoprazole (PROTONIX) 40 mg tablet Take 1 Tablet by mouth daily. 09/12/2021 Active rifAXIMin (XIFAXAN) 550 mg tablet Take 1 Tablet by mouth 2 times daily. 02/25/2022 Active torsemide (DEMADEX) 10 mg tablet Take 1 Tablet by mouth as needed. Active traMADol (ULTRAM) 50 mg tablet Take 1 Tablet by mouth every 6 hours as needed. 12/02/2021 Active ondansetron (ZOFRAN) 4 mg tablet Take 1 Tablet by mouth every 8 hours as needed. 08/18/2021 Active albuterol 90 mcg/actuation inhaler INHALE 1 PUFF FOUR TIMES DAILY NEEDED FOR SHORTNESS OF BREATH OR WHEEZING Active cetirizine (ZYRTEC) 10 mg tablet Take 1 Tablet by mouth every evening. Active Cholecalciferol, Vitamin D3, 25 mcg (1,000 unit) capsule Take by mouth. Active cyclobenzaprine (FLEXERIL) 5 mg tablet take 1 tablet by mouth 2 times every day as needed spasms 04/20/2023 Active dorzolamide (TRUSOPT) 2 % ophthalmic solution INSTILL 1 DROP INTO LEFT EYE TWICE DAILY 09/10/2023 Active furosemide (LASIX) 20 mg tablet daily. 12/11/2022 Active latanoprost (XALATAN) 0.005 % ophthalmic solution INSTILL 1 DROP IN BOTH EYES EVERY DAY AT BEDTIME 09/10/2023 Active Magnesium 250 mg tablet Take 330 mg by mouth. Active multivitamin combination no.56 tablet,chewable Take by mouth. Activ e polyethylene glycol 3350 (MIRALAX) 17 gram packet Take 17 g by mouth daily. Active spironolactone (ALDACTONE) 25 mg tablet Take 1 Tablet by mouth daily. Active levothyroxine (SYNTHROID) 100 mcg tablet Take 1 Tablet by mouth daily. 30 Tablet 01/04/2024 Active aspirin chewable 81 mg tablet Take 1 Tablet by mouth daily. 30 Tablet 01/04/2024 Active atorvastatin (LIPITOR) 80 mg tablet Take 1 Tablet by mouth at bedtime. 30 Tablet 01/04/2024 Active levothyroxine (SYNTHROID) 88 mcg tablet Take 1 Tablet by mouth daily. 08/21/2021 4 Discontinued losartan (COZAAR) 25 mg tablet Take 1 Tablet by mouth daily. 09/01/2022 4 Discontinued loratadine (CLARITIN) 10 mg tablet Take 10 mg by mouth daily. 05/04/2022 4 Discontinued(Err or) montelukast (SINGULAIR) 10 mg tablet Take 10 mg by mouth daily. 04/08/2022 4 Discontinued(Err or) montelukast (SINGULAIR) 10 mg tablet Take 10 mg by mouth every evening. 08/18/2021 4 Discontinued(Err or) amoxicillin (AMOXIL) 500 mg capsule take 2 capsule by mouth now then 1 capsule every 8 hours 07/19/2023 4 Discontinued(Err or) ibuprofen (MOTRIN) 800 mg tablet 1 tablet with food or milk as needed 4 Discontinued Active Problems Problem Noted Date Diagnosed Date TIA (transient ischemic attack) 01/03/2024 Resolved Problems Problem Noted Date Diagnosed Date Resolved Date Expressive aphasia 01/03/2024 4 Acute cerebrovascular accide nt (CVA) ([facility]) 01/02/2024 01/04/2024 Aphasia due to acute cerebro vascular accident (CVA) ([facility]) 01/02/2024 01/04/2024 Immunizations Name Administration Dates Next Due Covid-19 mRNA Vaccine (MODER NA COVID-19) PF 0.5 ml IM (12 yrs+) 10/24/2021,04/16/2021,08/16/2020, 0 21 Social History Tobacco Use Types Packs/Day Years Used Date Smoking Tobacco: Never Smokeless Tobacco: Never Tobacco Cessation:Counseling Given: Not Answered [facility] Utilities Answer Date Recorded In the past 12 months has e [employer], gas, oil, or water [employer] threatened to shut off services in your home? No 01/02/2024 Hunger Vital Sign Answer Date Recorded Within the past 12 months, y ou worried that your food would run out before you got the money to buy more. Never true 01/02/20 24 Within the past 12 months, t he food you bought just didn't last and you didn't have money to get more. Never true 01/02/2024 PRAPARE - Transportation Answer Date Re corded In the past 12 months, has l ack of transportation kept you from medical appointments or from getting medications? No 12/15 In the past 12 months, has l ack of transportation kept you from meetings, work, or from getting things needed for daily living? No 01/03/2024 Housing Stability Vital Sign Answer Edward e Recorded In the last 12 months, was t here a time when you were not able to pay the mortgage or rent on time? No 01/03/2024 In the past 12 months, how m any times have you moved where you were living? 2 01/03/2024 At any time in the past 12 m onths, were you homeless or living in a detention (including now)? No 01/03/2024 Interpersonal Safety Answer Date Record ed How often does anyone, inclu abiel family, hit, punch or physically hurt you? 01/02/2024 How often does anyone, chantell beebe family, insult, scream, curse or threaten to hurt you? 01/02/2024 Sex and Gender Information Value Date Recorded Sex Assigned at Not on file Gender Identity Female 09/26/2021 10:51 EDT Sexual Orientation Not on file Last Filed Vital Signs Vital Sign Reading Time Taken Comments Blood Pressure 130/79 01/04/2024 1252 EDT Pulse 78 01/04/2024 1000 EDT Temperature 36.4 ??C (97.5 ??F) 01/04/2024 1252 EDT Respiratory Rate 19 01/04/2024 1252 EDT Oxygen Saturation 95% 01/04/2024 1252 EDT Inhaled Oxygen Concentration - - Weight 71.4 kg (157 lb 6.4 oz) 01/04/2024 0343 E DT Height 157.5 cm (5' 2) 01/02/2024 2347 EDT Body Mass Index 28.79 01/02/2024 2347 EDT Functional Status Functional Status Response Date of Assess ment Are you deaf or do you have serious difficulty h earing? No 01/02/2024 Are you blind or do you have serious difficulty seeing, even when wearing glasses? No 01/02/2024 Do you have serious difficul ty walking or climbing stairs? (5 years old or older) No 01/02/2024 Do you have difficulty dress ing or bathing? (5 years old or older) No 01/02/2024 Because of a physical, menta l, or emotional condition, do you have difficulty doing errands alone such as visiting a doctor's office or shopping? (15 years old or older) No 01/02/2024 Cognitive Status Response Date of Assessm ent Because of a physical, menta l, or emotional condition, do you have serious difficulty concentrating, remembering, or making decisions? (5 years old or older) Yes 01/02/2024 Plan of Treatment Upcoming Encounters Date Type Department Care Team (Late st Contact Info) Description 02/16/2024 13:50 [place] [address] Procedures Procedure Name Priority Date/Time Associated Diagnosis Comments ECG REPORT - SCANNED 01/10/2024 10:37 EDT TYPE AND SCREEN Routine 01/04/2024 13:18 EDT HOLD LAVENDER TOP Routine 01/04/2024 8:1 2 EDT PATIENT RE-TYPE Routine 01/04/2024 7:20 EDT T3, TOTAL Add-On 01/04/2024 7:20 EDT T4 FREE Add-On 01/04/2024 7:20 EDT COMPLETE BLOOD COUNT AND DIFFERENTIAL Routine 01/04/2024 7:20 EDT MAGNESIUM Routine 01/04/2024 7:20 EDT BASIC METABOLIC PANEL (BMP) Routine 01/04/2024 7:20 EDT TSH Routine 01/04/2024 7:20 EDT MR HEAD WO CONTRAST STAT 01/03/2024 1 2:36 EDT TRANSTHORACIC ECHO (TTE) COMPLETE Routine 01/03/2024 8:01 EDT VITAMIN B12 Routine 01/03/2024 6:54 EDT LIPID PROFILE (INCLUDES CHOLESTEROL, TRIGLYCERIDES, HDL, LDL) Routine 01/03/2024 6:54 EDT MAGNESIUM Routine 01/03/2024 6:54 EDT COMPLETE BLOOD COUNT Routine 01/03/2024 6:54 EDT BASIC METABOLIC PANEL (BMP) Routine 01/03/2024 6:54 EDT ECG REPORT - SCANNED 01/02/2024 23:34 EDT EKG 12-LEAD STAT 01/02/2024 20:23 EDT POCT BLOOD GAS, CG8 I-STAT STAT 01/02/2024 20:03 EDT POCT GLUCOSE, INTERFACED STAT 01/02/2024 20:[address] ANGIO HEAD NECK STAT 01/02/2024 19 :[address] HEAD WO CONTRAST STAT 01/02/2024 1 9:57 EDT HOLD BLUE TOP Routine 01/02/2024 19:46 EDT AMMONIA STAT 01/02/2024 19:41 EDT ETHANOL, BLOOD STAT 01/02/2024 19:41 EDT TROPONIN I STAT 01/02/2024 19:41 EDT MAGNESIUM STAT 01/02/2024 19:41 EDT COMPREHENSIVE METABOLIC PANEL (CMP) STAT 01/02/2024 19:41 EDT COMPLETE BLOOD COUNT AND DIFFERENTIAL STAT 01/02/2024 19:41 EDT UA WITH REFLEX SEDIMENT (CULTURE IF POS) STAT 01/02/2024 19:37 EDT ED CRITICAL CARE Routine 01/02/2024 19:2 1 EDT ED CRITICAL CARE Routine 01/02/2024 19:2 1 EDT from Last 3 Months Results * ECG REPORT - SCANNED (01/10/2024 10:37 EDT) 01/10/2024 10:3 7 EDT Scan 2 Director Counseling Bureau PROCEDURE/MINOR HA GICAL ORDERABLES * TYPE AND SCREEN (01/04/2024 13:18 EDT) ABO A 01/04/2024 15:02 EDT [facility] Rh Factor Negative 01/04/2024 15:02 EDT [facility] Antibody Screen Negative 01/04/2024 15:02 T [facility] Specimen Expires: 01/07/2024 @ 23:59 01/04/2024 15:02 EDT [facility] Blood VENOUS BLOOD / Unknown Venipuncture / Unknown 01/04/2024 13:18 EDT 01/04/2024 13:24 EDT Ra Ramsey MD BLOOD BANK TESTS [facility] [address] [place] [address] * HOLD LAVENDER TOP (01/04/2024 8:12 EDT) Hold Hold 01/04/2024 9:15 EDT [facility] Blood VENOUS BLOOD / Unknown 01/04/2024 8:12 EDT 01/04/2024 8:12 EDT Ra Ramsey MD LAB INFO SERVICE AND SUPPORT & PHONE RESULT Performing Organization Address City/[facility]/ZIP Co de Phone Number [facility] [address] [place] [address] * PATIENT RE-TYPE (01/04/2024 7:20 EDT) Pathologist [facility] ABO A 01/04/2024 14:42 EDT [facility] Rh Factor Negative 01/04/2024 14:42 EDT [facility] Blood VENOUS BLOOD / Unknown Venipuncture / Unknown 01/04/2024 7:20 EDT 01/04/2024 13:42 EDT Ra Ramsey MD BLOOD BANK TESTS Performing Organization Address City/[facility]/ZIP Co de Phone Number [facility] [address] [place] [address] * (ABNORMAL) COMPLETE BLOOD COUNT AND DIFFERENTIAL (01/04/2024 7:20 EDT) Only the most recent of2 resultswithin the time period is included. [facility] WBC 3.28(L) 4.00 - 12.40 K/cmm 01/04/2024 8:24 [facility] RBC 4.00 3.86 - 5.04 M/cmm 01/04/2024 8:24 [facility] Hemoglobin 13.2 11.6 - 15.2 g/dL 01/04/2024 8:24 [facility] HCT 38.7 34.9 - 44.4 % 01/04/2024 8:24 [facility] MCV 97 81 - 98 fL 01/04/2024 8:24 [facility] MCH 33.0 26.7 - 33.3 pg 01/04/2024 8:24 [facility] MCHC 34.1 32.1 - 35.9 g/dL 01/04/2024 8:24 [facility] RDW-CV 13.1 <14.7 % 01/04/2024 8:24 [facility] RDW-SD 46.6 <50.4 fl 01/04/2024 8:24 [facility] PLT 120(L) 141 - 377 K/cmm 01/04/2024 8:24 [facility] MPV 9.6 9.5 - 12.7 fL 01/04/2024 8:24 [facility] % Neutrophils 46.1 % 01/04/2024 8:24 [facility] % Lymphocytes 28.0 % 01/04/2024 8:24 [facility] % Monocytes 13.7 % 01/04/2024 8:24 [facility] % Eosinophils 10.7 % 01/04/2024 8:24 [facility] % Basophils 1.5 % 01/04/2024 8:24 [facility] % Immature Grans 0.0 <0.9 % 01/04/20 8:24 [facility] Absolute Neutrophils 1.51(L) 2.20 - 8.85 K/cmm 01/04/2024 8:24 [facility] Absolute Lymphocytes 0.92(L) 1.09 - 3.30 K/cmm 01/04/2024 8:24 [facility] Absolute Monocytes 0.45 0.10 - 0.80 K/cmm 01/04/2024 8:24 [facility] Absolute Eosinophils 0.35 0.03 - 0.61 K/cmm 01/04/2024 8:24 [facility] ABS Basophils 0.05 0.01 - 0.11 K/cmm 01/04/2024 8:24 [facility] Absolute Immature Grans 0.00 0.00 - 0.06 K/cmm 01/04/2024 8:24 [facility] Type of Differential: Auto 01/04/2024 8:24 EDT [facility] Blood VENOUS BLOOD / Unknown Venipuncture / Unknown 01/04/2024 7:20 EDT 01/04/2024 8:07 EDT Ra Ramsey MD PACKAGES & DNA CA OBE ORDERABLES Performing Organization Address City/[facility]/ZIP Co de Phone Number [facility] [address] [place] [address] * T3, TOTAL (01/04/2024 7:20 EDT) Pathologist [facility] T3, Total 133 97 - 169 ng/dL 01/04/2024 11:27 EDT [facility] Blood VENOUS BLOOD / Unknown Venipuncture / Unknown 01/04/2024 7:20 EDT 01/04/2024 8:09 EDT Ra Ramsey MD CHEMISTRY & BLOOD GAS ORDERABLES Performing Organization Address [facility] Co de Phone Number [facility] [address] [place] [address] * (ABNORMAL) TSH (01/04/2024 7:20 EDT) [facility] TSH 6.66(H) 0.47 - 4.68 mIU/L 01/04/2024 9:27 EDT [facility] Blood VENOUS BLOOD / Unknown Venipuncture / Unknown 01/04/2024 7:20 EDT 01/04/2024 8:09 EDT Narrative [facility] - 01/04/2024 9:27 EDT The results of this assay can be falsely lowered due to the consumption of Biotin. Ra Ramsey MD CHEMISTRY & BLOOD GAS ORDERABLES Performing Organization Address City/[facility]/ZIP Co de Phone Number [facility] [address] [place] [id number] * T4 FREE (01/04/2024 7:20 EDT) [facility] T4, Free 1.3 0.8 - 2.2 ng/dL 01/04/2024 11:12 EDT [facility] Blood VENOUS BLOOD / Unknown Venipuncture / Unknown 01/04/2024 7:20 EDT 01/04/2024 8:09 EDT Ra Ramsey MD CHEMISTRY & BLOOD GAS ORDERABLES Performing Organization Address [facility] Co de Phone Number [facility] [address] [place] [address] * MAGNESIUM (01/04/2024 7:20 EDT) Only the most recent of3 resultswithin the time period is included. [facility] Magnesium 1.8 1.7 - 2.8 mg/dL 01/04/2024 8:52 EDT [facility] Blood VENOUS BLOOD / Unknown Venipuncture / Unknown 01/04/2024 7:20 EDT 01/04/2024 8:09 EDT Ra Ramsey MD CHEMISTRY & BLOOD GAS ORDERABLES Performing Organization Address [facility] Phone Number [facility] [address] [place] [address] * (ABNORMAL) BASIC METABOLIC PANEL (BMP) (01/04/2024 7:20 EDT) Only the most recent of2 resultswithin the time period is included. [facility] Sodium 138 136 - 145 mmol/L 01/04/2024 8:52 EDT [facility] Potassium 4.0 3.5 - 5.0 mmol/L 01/04/2024 8:52 [facility] Chloride 108 96 - 110 mmol/L 01/04/2024 8:52 [facility] CO2 Total 25 22 - 32 mmol/L 01/04/2024 8:52 [facility] Anion Gap 5 5 - 14 mmol/L 01/04/2024 8:52 [facility] Glucose 89 70 - 99 mg/dl 01/04/2024 8:52 EDT [facility] Calcium 8.7 8.5 - 10.5 mg/dL 01/04/2024 8:52 EDT [facility] BUN 8(L) 10 - 26 mg/dL 01/04/2024 8:52 EDT [facility] Creatinine 0.39(L) 0.52 - 1.04 mg/dL 01/04/2024 8:52 EDT [facility] eGFR 105 >60 mL/min/1.73 m2 01/04/2024 8:52 EDT [facility] Blood VENOUS BLOOD / Unknown Venipuncture / Unknown 01/04/2024 7:20 EDT 01/04/2024 8:09 EDT Ra Ramsey MD CHEMISTRY & BLOOD GAS ORDERABLES [facility] [address] [place] [address] * MR HEAD WO CONTRAST (01/03/2024 12:36 EDT) Anatomical Region Laterality Modality Head Magnetic Resonan ce 01/03/2024 12:5 2 EDT Impressions 01/03/2024 12:52 EDT 1. No acute intracranial abnormality is detected. 2. Mild cerebral global volume loss and scattered high T2 signal white matter changes. This pattern is nonspecific however most commonly reflects small vessel ischemic disease of aging. [id number] Narrative 01/03/2024 12:52 EDT EXAM: MRI HEAD WO CONTRAST HISTORY: eval possible stroke; Neuro deficit, acute, stroke suspected; eval possible stroke TECHNIQUE: MRI head without contrast. Structured report code: NR.MR01 COMPARISON: None. FINDINGS: PARENCHYMA: There is mild cerebral global volume loss. Scattered supratentorial high T2 signal white matter changes are seen. No evidence of infarction. No parenchymal hemorrhage. No mass or shift of structures across the midline. ?? EXTRA-AXIAL SPACES: No extra-axial collection. No extra-axial mass. VENTRICLES: No hydrocephalus. VESSELS: The flow voids are normal. BONES: Unremarkable. ORBITS: No significant abnormality. PARANASAL SINUSES/MASTOID AIR CELLS: Predominantly clear. EXTRACRANIAL SOFT TISSUES: Unremarkable. Resulting Agency Comment [id number] Procedure Note Kg Lane MD - 01/03/2024 EXAM: MRI HEAD WO CONTRAST HISTORY: eval possible stroke; Neuro deficit, acute, stroke suspected;eval possible stroke TECHNIQUE: MRI head without contrast. Structured report code: NR.MR01 COMPARISON: None. FINDINGS: PARENCHYMA: There is mild cerebral global volume loss. Scattered supratentorial highT2 signal white matter changes are seen. No evidence of infarction. Noparenchymal hemorrhage. No mass or shift of structures across the midline. EXTRA-AXIAL SPACES: No extra-axial collection. No extra-axial mass. VENTRICLES: No hydrocephalus. VESSELS: The flow voids are normal. BONES: Unremarkable. ORBITS: No significant abnormality. PARANASAL SINUSES/MASTOID AIR CELLS: Predominantly clear. EXTRACRANIAL SOFT TISSUES: Unremarkable. IMPRESSION 1. No acute intracranial abnormality is detected. 2. Mild cerebral global volume loss and scattered high T2 signal whitematter changes. This pattern is nonspecific however most commonly reflectssmall vessel ischemic disease of aging. [id number] Meghan Woo DO IMG MRI ORDERABLES * TRANSTHORACIC ECHO (TTE) COMPLETE W/DOPPLER W/CF NO CONTRAST (01/03/2024 8:01 EDT) Mitral deceleration time 257 ms [facility] Diastolic Volume 76 mL [facility] Systolic Volume 24 mL [facility] Mitral A-wave peak velocity 1.1 m/s [facility] Mitral E-wave peak velocity 1.0 m/s [facility] Mitral peak gradient, D 4 mmHg [facility] Aortic peak gradient, S 14 mmHg [facility] Aortic valve peak velocity, S 1.9 m/s [facility] LV ejection fraction, 1-p A4C 72 % [facility] ejection fraction, 1-p A2C 73 % [facility] Aortic root ID 2.8 cm [facility] Ascending aorta ID, a-p 3.3 cm [facility] EF 73 % [facility] LV ID, ES, PLAX 2.6 2.1 - 4.0 cm [facility] LV PW thickness, ED, PLAX 0.9 0.6 - 1.1 cm [facility] LV ID, ED, PLAX 4.1 3.5 - 6.0 cm [facility] LV E/e', lateral 7.5 [facility] LA volume, ES, BP 48.0 ml [facility] Atrial Length A2C 5.4 cm [facility] LA volumes, ES, A4C 44.0 ml [facility] LA ID/bsa, A-P 2.1 cm/m2 [facility] LA ID, A-P, ES 3.9 cm [facility] end-diastolic volume, 1-p A4C 62 ml [facility] end diastolic volume 1-p A2C 66 ml [facility] LA/aortic root ratio 1.39 [facility] LV E/e', lateral 12.9 [facility] LV E/e', medial 13.7 [facility] LV e', lateral 7.50 cm/s [facility] LV e', medial 7.10 cm/s [facility] IVS thickness, ED, PLAX 0.9 cm [facility] LV E/e', average 13 [facility] Mitral E/A ratio, peak 0.90 [facility] Anatomical Region Laterality Modality Ultrasound Narrative 01/03/2024 15:49 EDT ?Left??Ventricle: Left ventricular systolic function was normal with an ejection fraction of 60-65%. Left ventricular wall motion was normal; there were no regional wall motion abnormalities. ?Right??Ventricle: The right ventricular cavity was normal in size. Right ventricular systolic function was normal. ?Left??Atrium: No right to left shunting observed with agitated saline contrast injection both at rest and with Valsalva. Left Ventricle The left ventricular cavity was normal in size. Left ventricular systolic function was normal with an ejection fraction of 60-65%. Left ventricular diastolic parameters were normal. Left ventricular wall thickness was normal. Left ventricular wall motion was normal; there were no regional wall motion abnormalities. Right Ventricle The right ventricular cavity was normal in size. Right ventricular systolic function was normal. Right ventricular wall thickness was normal. Left Atrium The left atrium was normal in size. No right to left shunting observed with agitated saline contrast injection both at rest and with Valsalva. Right Atrium The right atrium was normal in size. IVC/SVC The inferior vena cava was normal in size. The inferior vena cava demonstrated a diameter of <=21 mm and collapses >50%; therefore, the right atrial pressure is estimated at 0-5 mmHg. Mitral Valve Mitral valve structure was normal. There was mild posterior annular calcification. There was trace mitral regurgitation. There was no significant mitral valve stenosis. Tricuspid Valve Tricuspid valve structure was normal. There was trace tricuspid valve regurgitation. There was no tricuspid valve stenosis. Aortic Valve The aortic valve structure was trileaflet. The aortic leaflets mildly calcified. There was no aortic valve stenosis. There was no aortic valve regurgitation. AV Peak Velocity: 1.9 m/s. Pulmonic Valve There was no significant pulmonic valve regurgitation. There was no pulmonic valve stenosis. Ascending Aorta The aortic root was normal in size. The ascending aorta was normal in size. Pericardium A trivial pericardial effusion was identified. Pulmonic Artery Unable to assess PA pressure, due to suboptimal tricuspid regurgitation envelope. Study Details Study status: Routine. Transthoracic echocardiography. M-Mode, complete 2D, complete spectral Doppler, and color Doppler.Scanning was performed from the apical, parasternal, subcostal and suprasternal acoustic windows. Overall the study quality was adequate. Images were obtained using cardiac ultrasound machine [id number]. Meghan Woo DO CARDIAC ECHO ORDERA BLES * (ABNORMAL) COMPLETE BLOOD COUNT (01/03/2024 6:54 EDT) WBC 3.31(L) 4.00 - 12.40 K/cmm 01/03/2024 7:23 EDT [facility] RBC 3.92 3.86 - 5.04 M/cmm 01/03/2024 7:23 [facility] Hemoglobin 12.6 11.6 - 15.2 g/dL 01/03/2024 7:23 [facility] HCT 37.5 34.9 - 44.4 % 01/03/2024 7:23 [facility] MCV 96 81 - 98 fL 01/03/2024 7:23 [facility] MCH 32.1 26.7 - 33.3 pg 01/03/2024 7:23 [facility] MCHC 33.6 32.1 - 35.9 g/dL 01/03/2024 7:23 [facility] RDW-CV 13.2 <14.7 % 01/03/2024 7:23 [facility] RDW-SD 46.2 <50.4 fl 01/03/2024 7:23 [facility] PLT 117(L) 141 - 377 K/cmm 01/03/2024 7:23 [facility] MPV 9.5 9.5 - 12.7 fL 01/03/2024 7:23 [facility] Blood VENOUS BLOOD / Unknown Venipuncture / Unknown 01/03/2024 6:54 EDT 01/03/2024 7:17 EDT Meghan Woo DO HEMATOLOGY & PF4 OR DERABLES Performing Organization Address City/State/[facility] Co de Phone Number [facility] [address] [place] [address] * VITAMIN B12 (01/03/2024 6:54 EDT) Vitamin B12 544 211 - 911 pg/mL 01/03/2024 16:42 [facility] Blood VENOUS BLOOD / Unknown Venipuncture / Unknown 01/03/2024 6:54 EDT 01/03/2024 7:17 EDT Narrative [facility] - 01/03/2024 16:42 EDT The results of this assay can be falsely elevated due to the consumption of Biotin. Ra Ramsey MD CHEMISTRY & BLOOD GAS ORDERABLES [facility] [address] [place] [address] * LIPID PROFILE (INCLUDES CHOLESTEROL, TRIGLYCERIDES, HDL, LDL) (01/03/2024 6:54 EDT) Cholesterol 158 <200 mg/dL [facility]/03[facility]2024 7[facility]47 [facility] Comment:Note that therapeuti c goals will differ between patients based on cardiac risk factors and current medical therapy. HDL 71 >=50 mg/dl 01/03/2024 7:47 [facility] Comment:Note that therapeuti c goals will differ between patients based on cardiac risk factors and current medical therapy. LDL, Calculated 81 <160 mg/dL 7:47 [facility] Comment:Note that therapeuti c goals will differ between patients based on cardiac risk factors and current medical therapy. Triglyceride 32 <=150 mg/dL 01/03/2024 7:47 [facility] Comment:Note that therapeuti c goals will differ between patients based on cardiac risk factors and current medical therapy. Chol/HDL Ratio 2.2 See Note 01/03/2024 7:47 [facility] Comment: NOTE: Desirable Ratio = <4.1 Patient At Risk Ratio = >5.0(Males) ?>6.0(Females) Non HDL Cholesterol 87 <160 mg/dL 01/03/2024 7:47 [facility] Comment:Note that therapeuti c goals will differ between patients based on cardiac risk factors and current medical therapy. Blood VENOUS BLOOD / Unknown Venipuncture / Unknown 01/03/2024 6:54 EDT 01/03/2024 7:17 EDT Meghan Woo DO CHEMISTRY & BLOOD G ORDERABLES [facility] [address] [place] [address] * ECG REPORT - SCANNED (01/02/2024 23:34 EDT) 01/02/2024 23:3 4 EDT Scan 2 [facility] PROCEDURE/MINOR HA GICAL ORDERABLES * EKG 12-LEAD (01/02/2024 20:23 EDT) 01/02/2024 20:[address] [facility] - 01/02/2024 23:19 EDT ? CV ? Test Date: ?2024-01-02 Pat Name: ? AMALIA JONES ?Department: ? Room: ? A02 Gender: ? Female ? Child And Adolescent Psychiatrist: ?? JG : ?1950 ? Requested By: NAVI SHORE Order Number: [id number] ? Kalen COLON: ?? MARIAMA CUELLAR MD ? Measurements Intervals ?Kenefic ? Rate: ? 65 ? P: ?31 CA: ? 196 ?QRS: ?17 QRSD: ? 74 ? T: ?44 QT: ? 406 ? QTc: ?422 ? Interpretive Statements Normal sinus rhythm Compared to ECG 09/16/2022 16:48:42 Sinus bradycardia no longer present I reviewed the tracing and have either agreed or edited the findings in this report. Electronically Signed On 01-02-2024 23:19:20 EDT by MARIAMA CUELLAR MD. 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 Electronically Signed On 01-02-2024 23:19:20 EDT by NICHOLE COLON. Mone Tyler MD CARDIAC ECG ORDERABL ES [facility] * (ABNORMAL) POCT BLOOD GAS, CG8 I-STAT (01/02/2024 20:03 EDT) pH, Venous, i-STAT 7.42(H) 7.31 - 7.41 01/02/2024 20:06 [facility] pCO2, Venous, i-STAT 42 41 - 51 mmHg 01/02/2024 20:06 [facility] pO2, Venous, i-STAT 43 30 - 50 mmHg 01/02/2024 20:06 [facility] TCO2, Venous, i-STAT 29(H) 22 - 28 mmol/L 01/02/2024 20:06 [facility] O2 Saturation, Venous, i-STAT 79 60 - 85 % 01/02/2024 20:06 [facility] Sodium, Venous, i-STAT 140 136 - 145 mmol/L 01/02/2024 20:06 [facility] Potassium, Venous, i-STAT 4.1 3.5 - 5 mmol/L 01/02/2024 20:06 [facility] Hematocrit, Venous, i-STAT 36 35 - 44 % 01/02/2024 20:06 [facility] Ionized Calcium, Venous, i-STAT 1.22 1.12 - 1.32 mmol/L 01/02/2024 20:06 [facility] Base Excess(+) / Deficit(-), Venous, i-STAT 3 -2 - 3 mmol/L 01/02/2024 20:06 [facility] Blood VENOUS BLOOD / Unknown 01/02/2024 20:03 EDT 01/02/2024 20:06 EDT Narrative [facility] - 01/02/2024 20:06 EDT Test Performed by Respiratory Mone Tyler MD POINT OF CARE TEST O RDERABLES Performing Organization Address [facility] Co de Phone Number [facility] [address] [place] [address] * POCT GLUCOSE, INTERFACED (01/02/2024 20:01 EDT) Glucose, POC 90 70 - 100 mg/dL 01/02/2024 20:06 EDT [facility] Blood CAPILLARY BLOOD / Unknown 01/02/2024 20:01 EDT 01/02/2024 20:06 EDT Mone Tyler MD POINT OF CARE TEST O RDERABLES Performing Organization Address [facility] Co de Phone Number [facility] [address] [place] [address] * CT HEAD WO CONTRAST (01/02/2024 19:57 EDT) Anatomical Region Laterality Modality Head Computed Tomogra phy 01/02/2024 19:4 1 EDT Addenda Addendum by Brigido Flores MD on 01/02/2024 20:15 EDT Findings were discussed by telephone with MONE Hussein ??on 01/02/2024 8:15 PM EDT, to expedite further management. ?? THIS DOCUMENT HAS BEEN ELECTRONICALLY SIGNED BY BRIGIDO FLORES MD FOR ANY QUESTIONS OR CONCERNS REGARDING THIS REPORT PLEASE CALL [facility] AT [phone] Impressions 01/02/2024 20:05 EDT No acute or concerning focal intracranial abnormality. ASSESSMENT: ASPECTS ([place] Stroke Program Early CT Score) is 10. THIS DOCUMENT HAS BEEN ELECTRONICALLY SIGNED BY BRIGIDO FLORES MD FOR ANY QUESTIONS OR CONCERNS REGARDING THIS REPORT PLEASE CALL [facility] AT [phone] Narrative 01/02/2024 20:05 EDT PROCEDURE INFORMATION: Exam: CT Head Without Contrast Exam date and time: 01/02/2024 7:41 PM Age: 73 years old Clinical indication: Stroke-like symptoms; Altered mental status/memory loss and speech disturbance; Additional info: Altered mental status, aphasia TECHNIQUE: Imaging protocol: Computed tomography of the head without contrast. Radiation optimization: All CT scans at this facility use at least one of these dose optimization techniques: automated exposure control; mA and/or kV adjustment per patient size (includes targeted exams where dose is matched to clinical indication); or iterative reconstruction. Other technique: STROKE PROTOCOL was implemented. COMPARISON: CT ANGIO HEAD NECK 01/02/2024 7:41 PM FINDINGS: Brain: No intracranial mass, mass effect or midline shift. No acute intracranial hemorrhage. No CT evidence of acute cortical brain infarct. Mild decreased attenuation in periventricular/centrum semiovale white matter. Cerebral ventricles: Ventricles, cisterns, and sulci are normal in size for age. Pituitary gland and sella: Sella turcica appears empty. Paranasal sinuses: Imaged paranasal sinuses are normally aerated. Mastoid air cells: Mastoid air cells are normally aerated. Auditory system: Middle ear spaces and ossicular chains have normal aeration and appearance. Orbital cavities: Imaged orbits and ocular globes are unremarkable. Bones: No calvarial fracture or destructive process. Soft tissues: No focal subcutaneous soft tissue swelling. Vasculature: No concerning asymmetric abnormal MCA density. Procedure Note Brigido Flores MD - 01/02/2024 PROCEDURE INFORMATION: Exam: CT Head Without Contrast Exam date and time: 01/02/2024 7:41 PM Age: 73 years old Clinical indication: Stroke-like symptoms; Altered mental status/memory loss and speech disturbance; Additional info: Altered mental status, aphasia TECHNIQUE: Imaging protocol: Computed tomography of the head without contrast. Radiation optimization: All CT scans at this facility use at least one of these dose optimization techniques: automated exposure control; mA and/or kV adjustment per patient size (includes targeted exams where dose is matched to clinical indication); or iterative reconstruction. Other technique: STROKE PROTOCOL was implemented. COMPARISON: CT ANGIO HEAD NECK 01/02/2024 7:41 PM FINDINGS: Brain: No intracranial mass, mass effect or midline shift. No acute intracranial hemorrhage. No CT evidence of acute cortical brain infarct. Mild decreased attenuation in periventricular/centrum semiovale white matter. Cerebral ventricles: Ventricles, cisterns, and sulci are normal in size for age. Pituitary gland and sella: Sella turcica appears empty. Paranasal sinuses: Imaged paranasal sinuses are normally aerated. Mastoid air cells: Mastoid air cells are normally aerated. Auditory system: Middle ear spaces and ossicular chains have normal aeration and appearance. Orbital cavities: Imaged orbits and ocular globes are unremarkable. Bones: No calvarial fracture or destructive process. Soft tissues: No focal subcutaneous soft tissue swelling. Vasculature: No concerning asymmetric abnormal MCA density. IMPRESSION No acute or concerning focal intracranial abnormality. ASSESSMENT: ASPECTS ([place] Stroke Program Early CT Score) is 10. THIS DOCUMENT HAS BEEN ELECTRONICALLY SIGNED BY BRIGIDO FLORES MD FOR ANY QUESTIONS OR CONCERNS REGARDING THIS REPORT PLEASE CALL [facility] [phone] Mone Tyler MD IMG CT ORDERABLES * CT ANGIO HEAD NECK (01/02/2024 19:57 EDT) Anatomical Region Laterality Modality Head and Neck Computed Tomogra phy 01/02/2024 19:4 1 EDT Addenda Addendum by Brigido Flores MD on 01/02/2024 20:15 EDT Findings were discussed by telephone with MONE Hussein ??on 01/02/2024 8:15 PM EDT, to expedite further management. ?? THIS DOCUMENT HAS BEEN ELECTRONICALLY SIGNED BY BRIGIDO FLORES MD FOR ANY QUESTIONS OR CONCERNS REGARDING THIS REPORT PLEASE CALL [facility] AT [phone] Impressions 01/02/2024 20:09 EDT No intracranial large vessel arterial occlusive or stenotic lesion and no evidence of [id number] aneurysm or dural sinus thrombosis. ASPECTS ([place] Stroke Program Early CT Score) is 10. PROCEDURE INFORMATION: Exam: CTA Neck With Contrast Exam date and time: 01/02/2024 7:41 PM Age: 73 years old Clinical indication: Stroke-like symptoms; Altered mental status/memory loss; Additional info: Confusion, aphasia TECHNIQUE: Imaging protocol: Computed tomographic angiography of the neck with contrast. Exam focused on the cervical segments of the vasculature. 3D rendering (Not supervised by radiologist): MIP and/or 3D reconstructed images were created by the technologist. Radiation optimization: All CT scans at this facility use at least one of these dose optimization techniques: automated exposure control; mA and/or kV adjustment per patient size (includes targeted exams where dose is matched to clinical indication); or iterative reconstruction. Contrast material: OMNI 350; Contrast volume: 100 ml; Contrast route: INTRAVENOUS (IV); ?? COMPARISON: CT HEAD WO CONTRAST 01/02/2024 7:41 PM FINDINGS: Right common carotid artery: No hemodynamically significant stenosis. No dissection or occlusion. Right internal carotid artery: ??Mild right carotid bulb and proximal right ICA atherosclerotic plaque results in short-segment, milder than 50% luminal caliber narrowing. ??No hemodynamically significant stenosis of the extracranial segment. No dissection or occlusion. Right external carotid artery: No occlusion or hemodynamically significant stenosis of the origin. ?? Left common carotid artery: No hemodynamically significant stenosis. No dissection or occlusion. Left internal carotid artery: ??Mild left carotid bulb and proximal left ICA atherosclerotic plaque results in short-segment, milder than 50% luminal caliber narrowing. ??No hemodynamically significant stenosis of the extracranial segment. No dissection or occlusion. Left external carotid artery: No occlusion or hemodynamically significant stenosis of the origin. ?? Right vertebral artery: No high-grade stenosis. No dissection or occlusion. Left vertebral artery: No high-grade stenosis. No dissection or occlusion. Soft tissues: ??Symmetric parapharyngeal and posterior nasopharynx soft tissues are maintained. Parotid and minor salivary glands are normal. Floor of mouth and tongue base soft tissues are symmetric. ??Epiglottis and upper airway structures are unremarkable. Lung Apices: ??Imaged lung apices show no concerning finding. Osseous structures: Bony structures show no acute fracture or destructive process. 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 IMPRESSION: No hemodynamically significant lesion of the cervical carotid or cervical vertebral arteries. REFERENCES: NASCET CRITERIA. The degree of stenosis in the cervical segment of the internal carotid artery is based on NASCET criteria. Normal is no stenosis. Mild is less than 50% stenosis. Moderate is 50-69% stenosis. Severe is 70% to 99% stenosis. Total occlusion is no detectable patent lumen. THIS DOCUMENT HAS BEEN ELECTRONICALLY SIGNED BY BRIGIDO FLORES MD FOR ANY QUESTIONS OR CONCERNS REGARDING THIS REPORT PLEASE CALL [facility] AT [phone] Narrative 01/02/2024 20:09 EDT PROCEDURE INFORMATION: Exam: CTA Head With Contrast, Arteriography Exam date and time: 01/02/2024 7:41 PM Age: 73 years old Clinical indication: Stroke-like symptoms; Altered mental status/memory loss; Additional info: Confusion, aphasia TECHNIQUE: Imaging protocol: Computed tomographic angiography of the head with contrast. Exam focused on the arteries. 3D rendering (Not supervised by radiologist): MIP and/or 3D reconstructed images were created by the technologist. Radiation optimization: All CT scans at this facility use at least one of these dose optimization techniques: automated exposure control; mA and/or kV adjustment per patient size (includes targeted exams where dose is matched to clinical indication); or iterative reconstruction. Contrast material: OMNI 350; Contrast volume: 100 ml; Contrast route: INTRAVENOUS (IV); ?? COMPARISON: CT HEAD WO CONTRAST 01/02/2024 7:41 PM FINDINGS: ANTERIOR CIRCULATION: Right internal carotid artery: Intracranial segment is patent with no significant stenosis. No aneurysm. Right middle cerebral artery: No occlusion or significant stenosis. No aneurysm. ?? Right anterior cerebral artery: No occlusion or significant stenosis. No aneurysm. ?? Left internal carotid artery: Intracranial segment is patent with no significant stenosis. No aneurysm. Left middle cerebral artery: No occlusion or significant stenosis. No aneurysm. ?? Left anterior cerebral artery: No occlusion or significant stenosis. No aneurysm. ?? POSTERIOR CIRCULATION: Right vertebral artery: No occlusion or significant stenosis. No aneurysm. ?? Left vertebral artery: No occlusion or significant stenosis. No aneurysm. ?? Basilar artery: . No occlusion or significant stenosis. No aneurysm. Right posterior cerebral artery: No occlusion or significant stenosis. No aneurysm. ?? Left posterior cerebral artery: No occlusion or significant stenosis. No aneurysm. ?? Brain: ??Ventricles, cisterns and sulci are symmetric. ??No intracranial mass, mass effect, or midline shift. ??No acute intracranial hemorrhage.Mild decreased attenuation in periventricular/centrum semiovale white matter. Osseous Structures: Bony structures show no acute fracture or destructive process. Soft tissues: No focal extracranial soft tissue swelling. Procedure Note Brigido Flores MD - 01/02/2024 PROCEDURE INFORMATION: Exam: CTA Head With Contrast, Arteriography Exam date and time: 01/02/2024 7:41 PM Age: 73 years old Clinical indication: Stroke-like symptoms; Altered mental status/memory loss; Additional info: Confusion, aphasia TECHNIQUE: Imaging protocol: Computed tomographic angiography of the head with contrast. Exam focused on the arteries. 3D rendering (Not supervised by radiologist): MIP and/or 3D reconstructed images were created by the technologist. Radiation optimization: All CT scans at this facility use at least one of these dose optimization techniques: automated exposure control; mA and/or kV adjustment per patient size (includes targeted exams where dose is matched to clinical indication); or iterative reconstruction. Contrast material: OMNI 350; Contrast volume: 100 ml; Contrast route: INTRAVENOUS (IV); COMPARISON: CT HEAD WO CONTRAST 01/02/2024 7:41 PM FINDINGS: ANTERIOR CIRCULATION: Right internal carotid artery: Intracranial segment is patent with no significant stenosis. No aneurysm. Right middle cerebral artery: No occlusion or significant stenosis. No aneurysm. Right anterior cerebral artery: No occlusion or significant stenosis. No aneurysm. Left internal carotid artery: Intracranial segment is patent with no significant stenosis. No aneurysm. Left middle cerebral artery: No occlusion or significant stenosis. No aneurysm. Left anterior cerebral artery: No occlusion or significant stenosis. No aneurysm. POSTERIOR CIRCULATION: Right vertebral artery: No occlusion or significant stenosis. No aneurysm. Left vertebral artery: No occlusion or significant stenosis. No aneurysm. Basilar artery: . No occlusion or significant stenosis. No aneurysm. Right posterior cerebral artery: No occlusion or significant stenosis. No aneurysm. Left posterior cerebral artery: No occlusion or significant stenosis. No aneurysm. Brain: Ventricles, cisterns and sulci are symmetric. No intracranial mass, mass effect, or midline shift. No acute intracranial hemorrhage.Mild decreased attenuation in periventricular/centrum semiovale white matter. Osseous Structures: Bony structures show no acute fracture or destructive process. Soft tissues: No focal extracranial soft tissue swelling. IMPRESSION No intracranial large vessel arterial occlusive or stenotic lesion and no evidence of [id number]-Hlzsau aneurysm or dural sinus thrombosis. ASPECTS ([place] Stroke Program Early CT Score) is 10. PROCEDURE INFORMATION: Exam: CTA Neck With Contrast Exam date and time: 01/02/2024 7:41 PM Age: 73 years old Clinical indication: Stroke-like symptoms; Altered mental status/memory loss; Additional info: Confusion, aphasia TECHNIQUE: Imaging protocol: Computed tomographic angiography of the neck with contrast. Exam focused on the cervical segments of the vasculature. 3D rendering (Not supervised by radiologist): MIP and/or 3D reconstructed images were created by the technologist. Radiation optimization: All CT scans at this facility use at least one of these dose optimization techniques: automated exposure control; mA and/or kV adjustment per patient size (includes targeted exams where dose is matched to clinical indication); or iterative reconstruction. Contrast material: OMNI 350; Contrast volume: 100 ml; Contrast route: INTRAVENOUS (IV); COMPARISON: CT HEAD WO CONTRAST 01/02/2024 7:41 PM FINDINGS: Right common carotid artery: No hemodynamically significant stenosis. No dissection or occlusion. Right internal carotid artery: Mild right carotid bulb and proximal right ICA atherosclerotic plaque results in short-segment, milder than 50% luminal caliber narrowing. No hemodynamically significant stenosis of the extracranial segment. No dissection or occlusion. Right external carotid artery: No occlusion or hemodynamically significant stenosis of the origin. Left common carotid artery: No hemodynamically significant stenosis. No dissection or occlusion. Left internal carotid artery: Mild left carotid bulb and proximal left ICA atherosclerotic plaque results in short-segment, milder than 50% luminal caliber narrowing. No hemodynamically significant stenosis of the extracranial segment. No dissection or occlusion. Left external carotid artery: No occlusion or hemodynamically significant stenosis of the origin. Right vertebral artery: No high-grade stenosis. No dissection or occlusion. Left vertebral artery: No high-grade stenosis. No dissection or occlusion. Soft tissues: Symmetric parapharyngeal and posterior nasopharynx soft tissues are maintained. Parotid and minor salivary glands are normal. Floor of mouth and tongue base soft tissues are symmetric. Epiglottis and upper airway structures are unremarkable. Lung Apices: Imaged lung apices show no concerning finding. Osseous structures: Bony structures show no acute fracture or destructive process. 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 IMPRESSION: No hemodynamically significant lesion of the cervical carotid or cervical vertebral arteries. REFERENCES: NASCET CRITERIA. The degree of stenosis in the cervical segment of the internal carotid artery is based on NASCET criteria. Normal is no stenosis. Mild is less than 50% stenosis. Moderate is 50-69% stenosis. Severe is 70% to 99% stenosis. Total occlusion is no detectable patent lumen. THIS DOCUMENT HAS BEEN ELECTRONICALLY SIGNED BY BRIGIDO FLORES MD FOR ANY QUESTIONS OR CONCERNS REGARDING THIS REPORT PLEASE CALL [facility] [phone] Mone Tyler MD IMG CT ORDERABLES * HOLD BLUE TOP (01/02/2024 19:46 EDT) Hold Hold 01/02/2024 21:01 EDT [facility] Blood VENOUS BLOOD / Unknown Venipuncture / Unknown 01/02/2024 19:46 EDT 01/02/2024 19:49 EDT Mone Tyler MD LAB INFO SERVICE AND SUPPORT & PHONE RESULT Performing Organization Address [facility] Co de Phone Number [facility] [address] [place] [address] * TROPONIN I (01/02/2024 19:41 EDT) [facility] Troponin I (ng/mL) <0.034 <0.034 ng/mL 01/02/2024 20:19 EDT [facility] Blood VENOUS BLOOD / Unknown Venipuncture / Unknown 01/02/2024 19:41 EDT 01/02/2024 19:44 EDT Narrative [facility] - 01/02/2024 20:19 EDT The results of this assay can be falsely lowered due to the consumption of Biotin. Mone Tyler MD CHEMISTRY & BLOOD GA S ORDERABLES Performing Organization Address [facility] Co de Phone Number [facility] [address] [place] [address] * AMMONIA (01/02/2024 19:41 EDT) [facility] Ammonia 20 <34 umol/L 01/02/2024 20:[facility] Blood VENOUS BLOOD / Unknown Venipuncture / Unknown 01/02/2024 19:41 EDT 01/02/2024 19:44 EDT Mone Tyler MD CHEMISTRY & BLOOD GA S ORDERABLES Performing Organization Address [facility] Co de Phone Number [facility] [address] [place] [address] * ETHANOL, BLOOD (01/02/2024 19:41 EDT) Ethanol, Blood <10 <10 mg/dL mg/dL 01/02/2024 20:03 [facility] Comment:Healthy, non-drinkin g individuals will have an ethanol concentration of <10 mg/dL. Blood VENOUS BLOOD / Unknown Venipuncture / Unknown 01/02/2024 19:41 EDT 01/02/2024 19:44 EDT Narrative [facility] - 01/02/2024 20:03 EDT [place] legal blood alcohol limit = 80 mg/dl (0.08%) Mone Tyler MD CHEMISTRY & BLOOD GA S ORDERABLES Performing Organization Address City/[facility]/ZIP Co de Phone Number [facility] [address] [place] [address] * (ABNORMAL) COMPREHENSIVE METABOLIC PANEL (CMP) (01/02/2024 19:41 EDT) Sodium 139 136 - 145 mmol/L 01/02/2024 20:03 [facility] Potassium 4.2 3.5 - 5.0 mmol/L 01/02/2024 20:03 [facility] Chloride 106 96 - 110 mmol/L 01/02/2024 20:03 [facility] CO2 Total 25 22 - 32 mmol/L 01/02/2024 20:03 [facility] Glucose 104(H) 70 - 99 mg/dl 01/02/2024 20:03 [facility] BUN 15 10 - 26 mg/dL 01/02/2024 20:03 [facility] Creatinine 0.43(L) 0.52 - 1.04 mg/dL 01/02/2024 20:03 [facility] eGFR 103 >60 mL/min/1.7 3m2 01/02/2024 20:03 [facility] Total Protein 6.5 6.3 - 8.2 g/dL 01/02/2024 20:03 [facility] Albumin 4.1 3.4 - 4.9 g/dL 01/02/2024 20:03 [facility] Alkaline Phosphatase 137(H) 38 - 126 U/L 01/02/2024 20:03 [facility] AST 53(H) 15 - 46 U/L 01/02/2024 20:03 [facility] ALT 33 <35 U/L 01/02/2024 20:03 [facility] Bilirubin, Total 1.3 <1.4 mg/dL 01/02/20 20:03 [facility] Calcium 9.5 8.5 - 10.5 mg/dL 01/02/2024 20:03 [facility] Albumin/Globulin Ratio 1.7 1.0 - 2.5 01/02/2024 20:03 [facility] Anion Gap 8 5 - 14 mmol/L 01/02/2024 20:03 [facility] Blood VENOUS BLOOD / Unknown Venipuncture / Unknown 01/02/2024 19:41 EDT 01/02/2024 19:44 EDT Mone Tyler MD CHEMISTRY & BLOOD GA S ORDERABLES [facility] [address] [place] [address] * UA CASCADE TO CULTURE (01/02/2024 19:37 EDT) Color UA Yellow Colorless, Yellow 01/02/2024 19:46 [facility] Clarity UA Clear Clear 01/02/2024 19:46 [facility] Glucose UA Negative Negative mg/dL 01/02/2024 19:46 [facility] Bilirubin UA Negative Negative 01/02/2024 19:46 [facility] Ketones UA Negative Negative 01/02/2024 19:46 [facility] Specific [place], Urine <=1.005 1.001 - 1.030 01/02/2024 19:46 [facility] Blood UA Negative Negative 01/02/2024 19:46 [facility] pH, UA 7.5 5.0 - 8.0 01/02/2024 19:46 [facility] Protein UA Negative Negative mg/dL 01/02/2024 19:46 [facility] Urobilinogen UA 0.2 0.2-1.0 mg/dL mg/dL 01/02/2024 19:46 [facility] Nitrite UA Negative Negative 01/02/2024 19:46 [facility] Leukocyte Esterase UA Negative Negative 01/02/2024 19:46 [facility] Urine URINE SPECIMEN OBTAINED BY CLEAN CATCH PROCEDURE / Unknown Urine Collect / Unknown 01/02/2024 19:37 EDT 01/02/2024 19:40 EDT Mone Tyler MD URINALYSIS ORDERABLE S [facility] [address] [place] [address] * [place] CRITICAL CARE ILL/INJURED PATIENT INIT 30-74 MIN, HC - CRITICAL CARE ILL/INJURED PATIENT INIT 30-74 MIN (01/02/2024 19:21 EDT) Narrative [facility] EKG - 01/02/2024 19:21 EDT Mone Tyler MD ? 01/02/2024 22:46 Critical Care Performed by: Mone Tyler MD Authorized by: Mone Tyler MD ?? 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 ??Critical care was time spent personally by me on the following activities: ??Ordering and performing treatments and interventions, development of treatment plan with patient or surrogate, ordering and review of laboratory studies, ordering and review of radiographic studies, discussions with consultants, pulse oximetry, re-evaluation of patient's condition, evaluation of patient's response to treatment, examination of patient and obtaining history from patient or surrogate ??I assumed direction of critical care for this patient from another provider in my specialty: no ?Care discussed with: admitting provider ?? Mone Tyler MD PROCEDURE/MINOR SURG ICAL ORDERABLES Performing Organization Address City/State/[facility] Co de Phone Number [facility] EKG from Last 3 Months Advance Directives For more information, please contact: [phone] * Full Code (Latest Code Status on File) Date Activated Date Inactivated Comments 01/02/2024 21:16 01/04/2024 16:26 Question Answer Comments When the patient has NO PULSE: Full Code / CPR Who Made the Decision? Patient Care Teams Business Unit Leader Relationship Specialty Start Date End Date Jacinta Black APRN LYNETTE OSMANLarisa [address] [place] [id number] PCP - General 09/26/21
--- OUTSIDE RECORDS SUMMARY | 2024-01-11 15:24 | XMS_ITS | Clinical Summary ---
Author Organization [facility] Address [address] [place] [address] Care Team Providers Care Cut To Length Operator Name Role Phone Jacinta Black SENG Primary Care Provider [phone] Allergies Active Allergy Reactions Criticality Noted Date [...] 01/03/2024 4 Acute cerebrovascular accide nt (CVA) ([facility]) 01/02/2024 01/04/2024 Aphasia due to acute cerebro vascular accident (CVA) ([facility]) 01/02/2024 01/04/2024 Encounters Date Type Department Care Team Description 01/02/2024 19:21 EDT - 01/04/2024 14:26 EDT Hospital Encounter [facility] Department [address] [place] [address] Mone Tyler MD Wagner, Beth Ellen, DO Nelson, Ra Davenport MD Aphasia due to acute cerebrovascular accident (CVA) ([facility]) (Primary Dx); Acute cerebrovascular accident (CVA) ([facility]) [I63.9]; Expressive aphasia; TIA (transient ischemic attack) Discharge Disposition: Home-Health Care [facility] 01/02/2024 Telephone [facility] [address] [place] [id number] Lucero Cano MD Aphasia from Last 3 Months Immunizations Name Administration Dates Next Due Covid-19 mRNA Vaccine (MODER NA COVID-19) PF 0.5 ml IM (12 yrs+) 10/24/2021,04/16/2021,08/16/2020, 0 21 Family History Medical History Relation Comments No Known Brother No Known Child No Known Cousin No Known Daughter No Known Father No Known Grandchild No Known Maternal Aunt No Known Maternal Grandfather No Known Maternal Grandmother No Known Maternal Uncle No Known Mother No Known Other No Known Paternal Aunt No Known Paternal Grandfather No Known Paternal Grandmother No Known Paternal Uncle Breast Cancer Sister No Known Son BRCA1 Negative Neg Hx BRCA1 Positive Neg Hx BRCA2 Negative Neg Hx BRCA2 Positive Neg Hx Breast Cancer (second onset) Neg Hx Genetic Disease Carrier Neg Hx Ovarian Cancer Neg Hx Relation Status Comments Brother Child Cousin Daughter Father Grandchild Maternal Aunt Maternal Grandfather Maternal Grandmother Maternal Uncle Mother Other Paternal Aunt Paternal Grandfather Paternal Grandmother Paternal Uncle Sister Son Social History Tobacco Use Types Packs/Day Years Used Date Smoking Tobacco: Never Smokeless Tobacco: Never Tobacco Cessation:Counseling Given: Not Answered [facility] Utilities Answer Date Recorded In the past 12 months has th e electric, gas, oil, or water company threatened to shut off services in your [...] any time in the past 12 m [facility], were you homeless or living in a group home (including now)? No 01/03/2024 Interpersonal Safety Answer Date Record ed How often does anyone, incljewel beebe family, hit, punch or physically hurt you? 01/02/2024 How often does anyone, incljewel beebe family, insult, scream, curse or threaten to hurt you? 01/02/2024 Sex and Gender Information Value Date Recorded Sex Assigned at Not on file Gender Identity Female 09/26/2021 10:51 EDT Sexual Orientation Not on file Obstetrics History Para Term AB IAB SAB Ectopic Multiple Livin g Live Births 2 2 2 Date Outcome GA Total Labor Labor/2nd/3rd Weight Sex Type Anes PTL Venessa A1 A5 Name Clin Para Para Last Filed Vital Signs Vital Sign Reading [...] Body Mass Index 28.79 01/02/2024 2347 EDT Plan of Treatment Upcoming Encounters Date Type Department Care Team (Late st Contact Info) Description 02/16/2024 13:50 EDT Appointment [facility] [address] [place] [address] Health Maintenance Due Date Last Done Comments Hepatitis C Screen 1950 RSV Immunization ( o r 60+ Years) (1 - 1-dose 60+ series) 2010 Fall Risk Screening 10/15/2015 COVID-19 Vaccine (2022-2 4 season) 2023 02/18/2022, 10/24/2021, 04/16/2021, Additional history exists Procedures Procedure Name Priority Date/Time Associated Diagnosis [...] EDT) 01/10/2024 10:3 7 EDT Scan 2 Security Services Specialist PROCEDURE/MINOR HA GICAL ORDERABLES * TYPE AND SCREEN (01/04/2024 13:18 EDT) ABO A 01/04/2024 15:02 EDT [facility] Rh Factor Negative 01/04/2024 15:02 EDT [facility] Antibody Screen Negative 01/04/2024 15:02 EDT [facility] Specimen Expires: 01/07/2024 @ 23:59 01/04/2024 15:02 EDT [facility] Blood VENOUS BLOOD / Unknown Venipuncture / Unknown 01/04/2024 13:18 EDT 01/04/2024 13:24 EDT Ra Ramsey MD BLOOD BANK TESTS [facility] [address] [place] [address] * HOLD LAVENDER TOP (01/04/2024 8:12 EDT) Hold Hold 01/04/2024 9:15 EDT [facility] Blood VENOUS BLOOD / Unknown 01/04/2024 8:12 EDT 01/04/2024 8:12 EDT Ra Ramsey MD LAB INFO SERVICE AND SUPPORT & PHONE RESULT Performing Organization Address City/[facility]/ZIP Co de Phone Number [facility] [address] [place] [address] * PATIENT RE-TYPE (01/04/2024 7:20 EDT) [facility] ABO A 01/04/2024 14:42 EDT [facility] Rh Factor Negative 01/04/2024 14:42 EDT [facility] Blood VENOUS BLOOD / Unknown Venipuncture / Unknown 01/04/2024 7:20 EDT 01/04/2024 13:42 EDT Ra Ramsey MD BLOOD BANK TESTS Performing Organization Address City/[facility]/ZIP Co de Phone Number [facility] [address] [place] [address] * (ABNORMAL) COMPLETE BLOOD COUNT AND DIFFERENTIAL (01/04/2024 7:20 EDT) Only the most recent of2 resultswithin the time period is included. WBC 3.28(L) 4.00 - 12.40 K/cmm 01/04/2024 8:24 EDT [facility] RBC 4.00 3.86 - 5.04 M/cmm 01/04/2024 8:24 EDT [facility] Hemoglobin 13.2 11.6 - 15.2 g/dL 01/04/2024 8:24 EDT [facility] HCT 38.7 34.9 - 44.4 % 01/04/2024 8:24 [facility] MCV 97 81 - 98 fL 01/04/2024 8:24 [facility] MCH 33.0 26.7 - 33.3 pg 01/04/2024 8:24 [facility] MCHC 34.1 32.1 - 35.9 g/dL 01/04/2024 8:24 [facility] RDW-CV 13.1 <14.7 % 01/04/2024 8:24 [facility] RDW-SD 46.6 <50.4 fl 01/04/2024 8:24 [facility] PLT 120(L) 141 - 377 K/cmm 01/04/2024 8:24 [facility] MPV 9.6 9.5 - 12.7 fL 01/04/2024 8:24 [facility] % Neutrophils 46.1 % 01/04/2024 8:24 [facility] % Lymphocytes 28.0 % 01/04/2024 8:24 [facility] % Monocytes 13.7 % 01/04/2024 8:24 [facility] % Eosinophils 10.7 % 01/04/2024 8:24 [facility] % Basophils 1.5 % 01/04/2024 8:24 [facility] % Immature Grans 0.0 <0.9 % 01/04/20 8:24 [facility] Absolute Neutrophils 1.51(L) 2.20 - 8.85 K/cmm 01/04/2024 8:24 [facility] Absolute Lymphocytes 0.92(L) 1.09 - 3.30 K/cmm 01/04/2024 8:24 [facility] Absolute Monocytes 0.45 0.10 - 0.80 K/cmm 01/04/2024 8:24 [facility] Absolute Eosinophils 0.35 0.03 - 0.61 K/cmm 01/04/2024 8:24 EDT [facility] ABS Basophils 0.05 0.01 - 0.11 K/cmm 01/04/2024 8:24 EDT [facility] Absolute Immature Grans 0.00 0.00 - 0.06 K/cmm 01/04/2024 8:24 EDT [facility] Type of Differential: Auto 01/04/2024 8:24 EDT [facility] Blood VENOUS BLOOD / Unknown Venipuncture / Unknown 01/04/2024 7:20 EDT 01/04/2024 8:07 EDT Ra Ramsey MD PACKAGES & DNA MS OBE ORDERABLES Performing Organization Address City/[facility]/ZIP Co de Phone Number [facility] [address] [place] [address] * T3, TOTAL (01/04/2024 7:20 EDT) T3, Total 133 97 - 169 ng/dL 01/04/2024 11:27 EDT [facility] Blood VENOUS BLOOD / Unknown Venipuncture / Unknown 01/04/2024 7:20 EDT 01/04/2024 8:09 EDT Ra Ramsey MD CHEMISTRY & BLOOD GAS ORDERABLES Performing Organization Address City/[facility]/ZIP Co de Phone Number [facility] [address] [place] [address] * (ABNORMAL) TSH (01/04/2024 7:20 EDT) TSH 6.66(H) 0.47 - 4.68 mIU/L 01/04/2024 9:27 EDT [facility] Blood VENOUS BLOOD / Unknown Venipuncture / Unknown 01/04/2024 7:20 EDT 01/04/2024 8:09 EDT Narrative [facility] - 01/04/2024 9:27 EDT The results of this assay can be falsely lowered due to the consumption of Biotin. Ra Ramsey MD CHEMISTRY & BLOOD GAS ORDERABLES Performing Organization Address [facility] Co de Phone Number [facility] [address] [place] [address] * T4 FREE (01/04/2024 7:20 EDT) T4, Free 1.3 0.8 - 2.2 ng/dL 01/04/2024 11:12 EDT [facility] Blood VENOUS BLOOD / Unknown Venipuncture / Unknown 01/04/2024 7:20 EDT 01/04/2024 8:09 EDT Ra Ramsey MD CHEMISTRY & BLOOD GAS ORDERABLES Performing Organization Address [facility] Number [facility] [address] [place] [address] * MAGNESIUM (01/04/2024 7:20 EDT) Only the most recent of3 resultswithin the time period is included. Magnesium 1.8 1.7 - 2.8 mg/dL 01/04/2024 8:52 EDT [facility] Blood VENOUS BLOOD / Unknown Venipuncture / Unknown 01/04/2024 7:20 EDT 01/04/2024 8:09 EDT Ra Ramsey MD CHEMISTRY & BLOOD GAS ORDERABLES Performing Organization Address [facility] Co de Phone Number [facility] [address] [place] [phone] * (ABNORMAL) BASIC METABOLIC PANEL (BMP) (01/04/2024 7:20 EDT) Only the most recent of2 resultswithin the time period is included. Sodium 138 136 - 145 mmol/L 01/04/2024 8:52 EDT [facility] Potassium 4.0 3.5 - 5.0 mmol/L 01/04/2024 8:52 [facility] Chloride 108 96 - 110 mmol/L 01/04/2024 8:52 [facility] CO2 Total 25 22 - 32 mmol/L 01/04/2024 8:52 [facility] Anion Gap 5 5 - 14 mmol/L 01/04/2024 8:52 [facility] Glucose 89 70 - 99 mg/dl 01/04/2024 8:52 [facility] Calcium 8.7 8.5 - 10.5 mg/dL 01/04/2024 8:52 [facility] BUN 8(L) 10 - 26 mg/dL 01/04/2024 8:52 [facility] Creatinine 0.39(L) 0.52 - 1.04 mg/dL 01/04/2024 8:52 [facility] eGFR 105 >60 mL/min/1.73 m2 01/04/2024 8:52 [facility] Blood VENOUS BLOOD / Unknown Venipuncture / Unknown 01/04/2024 7:20 EDT 01/04/2024 8:09 EDT Ra Ramsey MD CHEMISTRY & BLOOD GAS ORDERABLES [facility] [address] [place] [address] * MR HEAD WO CONTRAST (01/03/2024 12:36 EDT) Anatomical Region Laterality Modality Head Magnetic Resonan ce 01/03/2024 12:5 2 EDT Impressions 01/03/2024 12:52 EDT 1. No acute intracranial abnormality is detected. 2. Mild cerebral global volume loss and scattered high T2 signal white matter changes. This pattern is nonspecific however most commonly reflects small vessel ischemic disease of aging. [id number] Narrative 01/03/2024 12:52 EDT EXAM: MRI HEAD [...] EXTRACRANIAL SOFT TISSUES: Unremarkable. Resulting Agency Comment [id number] Procedure Note Kg Lane MD - 01/03/2024 [...] commonly reflectssmall vessel ischemic disease of aging. [id number] Meghan Woo DO G MRI ORDERABLES * TRANSTHORACIC ECHO (TTE) COMPLETE [...] Images were obtained using cardiac ultrasound machine Storactive-01. Meghan Woo DO CARDIAC ECHO ORDERA BLES * (ABNORMAL) COMPLETE BLOOD COUNT (01/03/2024 6:54 EDT) WBC 3.31(L) 4.00 - 12.40 K/cmm 01/03/2024 7:23 [facility] RBC 3.92 3.86 - 5.04 M/cmm 01/03/2024 7:23 [facility] Hemoglobin 12.6 11.6 - 15.2 g/dL 01/03/2024 7:23 [facility] HCT 37.5 34.9 - 44.4 % 01/03/2024 7:23 [facility] MCV 96 81 - 98 fL 01/03/2024 7:23 [facility] MCH 32.1 26.7 - 33.3 pg 01/03/2024 7:23 [facility] MCHC 33.6 32.1 - 35.9 g/dL 01/03/2024 7:23 [facility] RDW-CV 13.2 <14.7 % 01/03/2024 7:23 [facility] RDW-SD 46.2 <50.4 fl 01/03/2024 7:23 [facility] PLT 117(L) 141 - 377 K/cmm 01/03/2024 7:23 [facility] MPV 9.5 9.5 - 12.7 fL 01/03/2024 7:23 [facility] Blood VENOUS BLOOD / Unknown Venipuncture / Unknown 01/03/2024 6:54 EDT 01/03/2024 7:17 EDT Meghan Woo DO HEMATOLOGY & PF4 OR DERABLES [facility] [address] [place] [address] * VITAMIN B12 (01/03/2024 6:54 EDT) Vitamin B12 544 211 - 911 pg/mL [facility]/03[facility]2024 [facility] Blood VENOUS BLOOD / Unknown Venipuncture / Unknown 01/03/2024 6:54 EDT 01/03/2024 7:17 EDT Narrative [facility] - 01/03/2024 16:42 EDT The results of this assay can be falsely elevated due to the consumption of Biotin. Ra Ramsey MD CHEMISTRY & BLOOD GAS ORDERABLES [facility] [address] [place] [address] * LIPID PROFILE (INCLUDES CHOLESTEROL, TRIGLYCERIDES, HDL, LDL) (01/03/2024 6:54 EDT) [facility] Cholesterol 158 <200 mg/dL 01/03/2024 7:47 [facility] Comment:Note that therapeuti c goals will differ between patients based on cardiac risk factors and current medical therapy. HDL 71 >=50 mg/dl 01/03/2024 7:47 [facility] Comment:Note that therapeuti c goals will differ between patients based on cardiac risk factors and current medical therapy. LDL, Calculated 81 <160 mg/dL 7:47 [facility] Comment:Note that therapeuti c goals will differ between patients based on cardiac risk factors and current medical therapy. Triglyceride 32 <=150 mg/dL 01/03/2024 7:47 [facility] Comment:Note that therapeuti c goals will differ between patients based on cardiac risk factors and current medical therapy. Chol/HDL Ratio 2.2 See Note 01/03/2024 7:47 [facility] Comment: NOTE: Desirable Ratio = <4.1 Patient At Risk Ratio = >5.0(Males) ?>6.0(Females) Non HDL Cholesterol 87 <160 mg/dL 01/03/2024 7:47 EDT [facility] Comment:Note that therapeuti c goals will differ between patients based on cardiac risk factors and current medical therapy. Blood VENOUS BLOOD / Unknown Venipuncture / Unknown 01/03/2024 6:54 EDT 01/03/2024 7:17 EDT Meghan Estephania Chilo DO CHEMISTRY & BLOOD G ORDERABLES [facility] [address] [place] [address] * ECG REPORT - SCANNED (01/02/2024 23:34 EDT) 01/02/2024 23:3 4 EDT Scan 2 Security Services Specialist PROCEDURE/MINOR HA GICAL ORDERABLES * EKG 12-LEAD (01/02/2024 20:23 EDT) 01/02/2024 20:2 3 EDT Narrative [facility] - 01/02/2024 23:19 EDT ? [facility] ? Test Date: ?2024-01-02 Pat Name: ? AMALIA JONES ?Department: ? Room: ? A02 Gender: ? Female ? Instrumentation Instructor: ?? MCKAY : ?1950 ? Requested By: NAVI Márquez Number: [id number] ? Reading : ?? MARIAMA CUELLAR MD ? Measurements Intervals ?Fordyce ? Rate: ? 65 ? P: ?31 MS: ? 196 ?QRS: ?17 QRSD: ? 74 [...] Procedure Note Mariama Cuellar MD - 01/02/2024 [facility] Test Date: 2024-01-02 Pat Name: AMALIA JONES Department: Room: A02 Gender: Female Instrumentation Instructor: MCKAY : 1950 Requested By: NAVI SHORE Order Number: [id number] Reading MD: MARIAMA CUELLAR MD Measurements Intervals Fordyce Rate: 65 P: 31 MS: 196 QRS: 17 QRSD: 74 T: 44 QT: 406 QTc: 422 Interpretive Statements Normal sinus rhythm Compared to ECG 09/16/2022 16:48:42 Sinus bradycardia no longer present I reviewed the tracing and have either agreed or edited the findings inthis report. Electronically Signed On 01-02-2024 23:19:20 EDT by NICHOLE COLON. Mone Tyler MD CARDIAC ECG ORDERABL ES [facility] * (ABNORMAL) POCT BLOOD GAS, CG8 I-STAT (01/02/2024 20:03 EDT) pH, Venous, i-STAT 7.42(H) 7.31 - 7.41 01/02/2024 20:06 [facility] pCO2, Venous, i-STAT 42 41 - 51 mmHg 01/02/2024 20:06 [facility] pO2, Venous, i-STAT 43 30 - 50 mmHg 01/02/2024 20:06 [facility] TCO2, Venous, i-STAT 29(H) 22 - 28 mmol/L 01/02/2024 20:06 [facility] O2 Saturation, Venous, i-STAT 79 60 - 85 % 01/02/2024 20:06 [facility] Sodium, Venous, i-STAT 140 136 - 145 mmol/L 01/02/2024 20:06 [facility] Potassium, Venous, i-STAT 4.1 3.5 - 5 mmol/L 01/02/2024 20:06 [facility] Hematocrit, Venous, i-STAT 36 35 - 44 % 01/02/2024 20:06 [facility] Ionized Calcium, Venous, i-STAT 1.22 1.12 - 1.32 mmol/L 01/02/2024 20:06 EDT [facility] Base Excess(+) / Deficit(-), Venous, i-STAT 3 -2 - 3 mmol/L 01/02/2024 20:06 EDT [facility] Blood VENOUS BLOOD / Unknown 01/02/2024 20:03 EDT 01/02/2024 20:06 EDT Narrative [facility] - 01/02/2024 20:06 EDT Test Performed by Respiratory Mone Tyler MD POINT OF CARE TEST O RDERABLES Performing Organization Address City/[facility]/ZIP Co de Phone Number [facility] [address] [place] [address] * POCT GLUCOSE, INTERFACED (01/02/2024 20:01 EDT) Glucose, POC 90 70 - 100 mg/dL 01/02/2024 20:06 EDT [facility] Blood CAPILLARY BLOOD / Unknown 01/02/2024 20:01 EDT 01/02/2024 20:06 EDT Mone Tyler MD POINT OF CARE TEST O RDERABLES Performing Organization Address City/[facility]/ZIP Co de Phone Number [facility] [address] [place] [address] * CT HEAD WO CONTRAST (01/02/2024 19:57 [...] REGARDING THIS REPORT PLEASE CALL [facility] AT [phone] Impressions 01/02/2024 20:05 EDT No acute or concerning focal intracranial abnormality. ASSESSMENT: ASPECTS ([place] Stroke Program Early CT Score) is 10. THIS DOCUMENT HAS BEEN ELECTRONICALLY SIGNED BY BRIGIDO FLORES MD FOR ANY QUESTIONS OR CONCERNS REGARDING THIS REPORT PLEASE CALL [facility] AT [phone] [facility] 01/02/2024 20:05 EDT PROCEDURE INFORMATION: Exam: CT [...] CONCERNS REGARDING THIS REPORT PLEASE CALL [facility] [phone] Mone Tyler MD [facility] [place] ORDER[place]LES * CT ANGIO HEAD NECK [...] REGARDING THIS REPORT PLEASE CALL [facility] AT [phone] Impressions 01/02/2024 20:09 EDT No intracranial large vessel arterial occlusive or stenotic lesion and no evidence of [id number] aneurysm or dural sinus thrombosis. ASPECTS ([place] [...] REGARDING THIS REPORT PLEASE CALL [facility] AT [phone] Narrative 01/02/2024 20:09 EDT PROCEDURE INFORMATION: Exam: [...] or stenotic lesion and no evidence of [id number] aneurysm or dural sinus thrombosis. ASPECTS ([place] [...] CONCERNS REGARDING THIS REPORT PLEASE CALL [facility] [phone] Mone Tyler MD IMG CT ORDERABLES * HOLD BLUE TOP (01/02/2024 19:46 EDT) Hold Hold 01/02/2024 21:01 EDT [facility] Blood VENOUS BLOOD / Unknown Venipuncture / Unknown 01/02/2024 19:46 EDT 01/02/2024 19:49 EDT Mone Tyler MD LAB INFO SERVICE AND SUPPORT & PHONE RESULT [facility] [address] [place] [address] * TROPONIN I (01/02/2024 19:41 EDT) Troponin I (ng/mL) <0.034 <0.034 ng/mL 01/02/2024 20:19 EDT [facility] Blood VENOUS BLOOD / Unknown Venipuncture / Unknown 01/02/2024 19:41 EDT 01/02/2024 19:44 EDT Narrative [facility] - 01/02/2024 20:19 EDT The results of this assay can be falsely lowered due to the consumption of Biotin. Mone Tyler MD CHEMISTRY & BLOOD GA S ORDERABLES Performing Organization Address City/[facility]/ZIP Co de Phone Number [facility] [address] [place] [address] * AMMONIA (01/02/2024 19:41 EDT) Ammonia 20 <34 umol/L 01/02/2024 20:02 EDT [facility] Blood VENOUS BLOOD / Unknown Venipuncture / Unknown 01/02/2024 19:41 EDT 01/02/2024 19:44 EDT Mone Tyler MD CHEMISTRY & BLOOD GA S ORDERABLES Performing Organization Address [facility] Number [facility] [address] [place] [address] * ETHANOL, BLOOD (01/02/2024 19:41 EDT) [facility] Ethanol, Blood <10 <10 mg/dL mg/dL 01/02/2024 20:03 EDT [facility] Comment:Healthy, non-drinkin g individuals will have an ethanol concentration of <10 mg/dL. Blood VENOUS BLOOD / Unknown Venipuncture / Unknown 01/02/2024 19:41 EDT 01/02/2024 19:44 EDT Narrative [facility] - 01/02/2024 20:03 EDT [place] legal blood alcohol limit = 80 mg/dl (0.08%) Mone Tyler MD CHEMISTRY & BLOOD GA S ORDERABLES Performing Organization Address [facility]/ZIP Co de Phone Number [facility] [address] [place] [address] * (ABNORMAL) COMPREHENSIVE METABOLIC PANEL (CMP) (01/02/2024 19:41 EDT) Sodium 139 136 - 145 mmol/L 01/02/2024 20:03 EDT [facility] Potassium 4.2 3.5 - 5.0 mmol/L 01/02/2024 20:03 [facility] Chloride 106 96 - 110 mmol/L 01/02/2024 20:03 [facility] CO2 Total 25 22 - 32 mmol/L 01/02/2024 20:03 [facility] Glucose 104(H) 70 - 99 mg/dl 01/02/2024 20:03 [facility] BUN 15 10 - 26 mg/dL 01/02/2024 20:03 [facility] Creatinine 0.43(L) 0.52 - 1.04 mg/dL 01/02/2024 20:03 [facility] eGFR 103 >60 mL/min/1.7 3m2 01/02/2024 20:03 [facility] Total Protein 6.5 6.3 - 8.2 g/dL 01/02/2024 20:03 [facility] Albumin 4.1 3.4 - 4.9 g/dL 01/02/2024 20:03 [facility] Alkaline Phosphatase 137(H) 38 - 126 U/L 01/02/2024 20:03 [facility] AST 53(H) 15 - 46 U/L 01/02/2024 20:03 [facility] ALT 33 <35 U/L 01/02/2024 20:03 [facility] Bilirubin, Total 1.3 <1.4 mg/dL 01/02/20 20:03 [facility] Calcium 9.5 8.5 - 10.5 mg/dL 01/02/2024 20:03 [facility] Albumin/Globulin Ratio 1.7 1.0 - 2.5 01/02/2024 20:03 [facility] Anion Gap 8 5 - 14 mmol/L 01/02/2024 20:03 [facility] Blood VENOUS BLOOD / Unknown Venipuncture / Unknown 01/02/2024 19:41 EDT 01/02/2024 19:44 EDT Mone Tyler MD CHEMISTRY & BLOOD GA S ORDERABLES [facility] [address] [id number] * UA CASCADE TO CULTURE (01/02/2024 19:37 EDT) Color UA Yellow Colorless, Yellow 01/02/2024 19:46 [facility] Clarity UA Clear Clear 01/02/2024 19:46 [facility] Glucose UA Negative Negative mg/dL 01/02/2024 19:46 [facility] Bilirubin UA Negative Negative 01/02/2024 19:46 [facility] Ketones UA Negative Negative 01/02/2024 19:46 [facility] Specific [place], Urine <=1.005 1.001 - 1.030 01/02/2024 19:46 [facility] Blood UA Negative Negative 01/02/2024 19:46 [facility] pH, UA 7.5 5.0 - 8.0 01/02/2024 19:46 [facility] Protein UA Negative Negative mg/dL 01/02/2024 19:46 [facility] Urobilinogen UA 0.2 0.2-1.0 mg/dL mg/dL 01/02/2024 19:46 [facility] Nitrite UA Negative Negative 01/02/2024 19:46 [facility] Leukocyte Esterase UA Negative Negative 01/02/2024 19:46 [facility] Urine URINE SPECIMEN OBTAINED BY CLEAN CATCH PROCEDURE / Unknown Urine Collect / Unknown 01/02/2024 19:37 EDT 01/02/2024 19:40 EDT Mone Tyler MD URINALYSIS ORDERABLE S [facility] [address] [place] [address] * MS CRITICAL CARE ILL/INJURED PATIENT INIT 30-74 MIN, HC - CRITICAL CARE ILL/INJURED PATIENT INIT 30-74 MIN (01/02/2024 19:21 EDT) Narrative [facility] EKG - 01/02/2024 19:21 EDT Mone Tyler [...] or life-threatening deterioration of the following conditions: ??AUTOMOTIVE PARTS ADVISOR failure or compromise ??Critical care was time [...] Mone Tyler MD PROCEDURE/MINOR SURG ICAL ORDERABLES [facility] EKG from Last 3 Months Advance Directives For more information, please contact: [phone] * Full Code (Latest Code Status on File) Date Activated Date Inactivated Comments 01/02/2024 21:16 01/04/2024 16:26 Question Answer Comments When the patient has NO PULSE: Full Code / CPR Who Made the Decision? Patient Care Teams Cut To Length Operator Relationship Specialty Start Date End Date Jacinta Black APRN [address] [place] [address] PCP - General 09/26/21
--- OUTSIDE RECORDS SUMMARY | 2024-01-11 15:25 | XMS_ITS | Encounter Summary ---
Author Organization [facility] Address [address] [place] [address] Care Team Providers Care Synthetic Soil Blocks Pulper Name Role Phone Jacinta Black APRN Primary Care Provider [phone] Encounter Details Date Type Department Care Team (Latest Contact Info) Description 11/29/2021 Travel Social History Tobacco Use Types Packs/Day Years Used Date Smoking Tobacco: Never Assessed Interpersonal Safety Answer Date Record ed Physically Hurt Never 12/17/2019 Verbally Threaten Not on file 12/17/2019 Sex and Gender Information Value Date Recorded Sex Assigned at Not on file Gender Identity Female 09/26/2021 10:51 EDT Sexual Orientation Not on file COVID-19 Exposure Response Date Recorded In the last 10 days, have yo u been in contact with someone who was confirmed or suspected to have Coronavirus/COVID-19? No / Unsure 11/29/2021 14:15 EDT documented as of this encounter Functional Status Functional Status Response Date of Assess ment Are you deaf or do you have serious difficulty h earing? No 11/29/2021 documented as of this encounter Plan of Treatment Upcoming Encounters Date Type Department Care Team (Late st Contact Info) Description 02/16/2024 13:50 EDT Appointment [facility] Mammography [address] [place] [address] documented as of this encounter Visit Diagnoses Not on filedocumented in this encounter Care Teams Synthetic Soil Blocks Pulper Relationship Specialty Start Date End Date Jacinta Black APRN [address] [place] [address] PCP - General 09/26/21 documented as of this encounter
--- OUTSIDE RECORDS SUMMARY | 2024-01-11 15:25 | XMS_ITS | Encounter Summary ---
Author Organization [facility] Address [address] [place] [address] Care Team Providers Care [employer] Operations Name Role Phone Ilana Nowak Primary Care Provider [phone] Encounter Details Date Type Department Care Team (Latest Contact Info) Description 12/21/2017 13:33 EDT - 12/21/2017 23:59 EDT Hospital Encounter [address] [address] Unknown, Provider, Discharge Disposition: Home or Self Care Social History Tobacco Use Types Packs/Day Years Used Date Smoking Tobacco: Never Assessed Sex and Gender Information Value Date Recorded Sex Assigned at Not on file Gender Identity Female 09/26/2021 10:51 EDT Sexual Orientation Not on file documented as of this encounter Discharge Disposition Disposition Code Departure Means Destination Home or Self Senior Living documented in this encounter Plan of Treatment Upcoming Encounters Date Type Department Care Team (Late st Contact Info) Description 02/16/2024 13:50 EDT Appointment [facility] Mammography [address] [place] [address] documented as of this encounter Visit Diagnoses Not on filedocumented in this encounter Care Teams [employer] Relationship Specialty Start Date End Date Ilana Nowak FNP [address] [place] [address] PCP - General 03/31/11 10/31/19 documented as of this encounter
--- OUTSIDE RECORDS SUMMARY | 2024-01-11 15:25 | XMS_ITS | Encounter Summary ---
Author Organization [facility] Address [address] [place] [address] Care Team Providers Care Physician Specialist Name Role Phone Ilana Nowak DILLAN Primary Care Provider [phone] Encounter Details Date Type Department Care Team (Late st Contact Info) Description 12/23/2018 Historical Results Only [facility] Radiology Results [address] [place] [address] Rico Aburto MD [address] [place], [place] [address] Social History Tobacco Use Types Packs/Day Years Used Date Smoking Tobacco: Never Assessed Sex and Gender Information Value Date Recorded Sex Assigned at Not on file Gender Identity Female 09/26/2021 10:51 EDT Sexual Orientation Not on file documented as of this encounter Plan of Treatment Upcoming Encounters Date Type Department Care Team (Late st Contact Info) Description 02/16/2024 13:50 EDT Appointment [facility] Mammography [address] [place] [address] documented as of this encounter Procedures Procedure Name Priority Date/Time Associated Diagnosis Comments MA BREAST SCREENING VIRAL BILATERAL 12/23/2018 9:26 EDT documented in this encounter Results * MA BREAST SCREENING VIRAL BILATERAL (12/23/2018 9:26 EDT) Anatomical Region Laterality Modality Breast Bilateral Other 12/23/2018 9:26 EDT Narrative 12/23/2018 9:27 EDT ? EXAM: MAMMOGRAM/MAMMO BILATERAL SCREEN W ??EX. D/ (1109) ? CLINICAL INFORMATION: ? Z12.31 SCREENING ? INDICATION: Z12.31 SCREENING SCREENING, Dec 21 ? COMPARISON: Comparison has been made to previous images. ? TECHNIQUE: ??Full field digital whole breast 2D (C-view) and 3D CC and ? MLO views of both breasts were obtained. CAD technology was utilized. ? FINDINGS: ??The fibroglandular patterns of the breasts are normal. ? There has been no change when compared to previous mammograms and ? there is no mammographic evidence of cancer. The breast tissue is ? almost entirely fatty. ? FINAL ASSESSMENT BILATERAL BREAST: ??BI-RADS Category 1 - Negative. ? Routine mammographic follow-up is recommended. ? These results will be communicated to your patient via a lay letter ? from Radiology. ??If any additional imaging is needed we will contact ? your patient directly. ? REPORT SIGNED IN OTHER VENDOR SYSTEM 12/23/2018 ?Reported By: Sanjay Parra MD ? CC: ? Transcribed Date/Time: 12/23/2018 (0927) ? Recreation Leader: ? Printed Date/Time: 02/01/2019 (1500) ? PAGE 1 ? Signed Report ? Procedure Note Sanjay Parra E - 03/21/2019 EXAM: MAMMOGRAM/MAMMO BILATERAL SCREEN W EX. D/ (1109) CLINICAL INFORMATION: Z12.31 SCREENING INDICATION: Z12.31 SCREENING SCREENING, Dec 21 COMPARISON: Comparison has been made to previous images. TECHNIQUE: Full field digital whole breast 2D (C-view) and 3D CCand MLO views of both breasts were obtained. CAD technology wasutilized. FINDINGS: The fibroglandular patterns of the breasts are normal. There has been no change when compared to previous mammograms and there is no mammographic evidence of cancer. The breast tissue is almost entirely fatty. FINAL ASSESSMENT BILATERAL BREAST: BI-RADS Category 1 - Negative. Routine mammographic follow-up is recommended. These results will be communicated to your patient via a lay letter from Radiology. If any additional imaging is needed we willcontact your patient directly. REPORT SIGNED IN OTHER VENDOR SYSTEM 12/23/2018 Reported By: Sanjay Parra MD CC: Transcribed Date/Time: 12/23/2018 (0927) Recreation Leader: Printed Date/Time: 02/01/2019 (1500) PAGE 1 Signed Report Rico Aburto MD [facility] MAMMOGRAPHY [facility] documented in this encounter Visit Diagnoses Not on filedocumented in this encounter Care Teams Physician Specialist Relationship Specialty Start Date End Date Ilana Nowak FNP [address] [place] [address] PCP - General 03/31/11 10/31/19 documented as of this encounter
--- OUTSIDE RECORDS SUMMARY | 2024-01-11 15:25 | XMS_ITS | Encounter Summary ---
Author Organization [facility] Address [address] [place] [address] Care Team Providers Care Warehouse Operator Name Role Phone Rico Aburto MD Primary Care Provider [phone] Encounter Details Date Type Department Care Team (Late st Contact Info) Description 09/12/2021 Orders Only [facility] CT Scan [address] [place], [place] [address] Missy Schultz Social History Tobacco Use Types Packs/Day Years [...] Contact Info) Description 02/16/2024 13:50 EDT Appointment [facility] Mammography [address] [place], [place] [address] documented as of this encounter Visit Diagnoses Not on filedocumented in this encounter Care Teams Warehouse Operator Relationship Specialty Start Date End Date Rico Aburto MD [address] [place] [address] PCP - General 11/01/19 09/25/21 documented as of this encounter
--- OUTSIDE RECORDS SUMMARY | 2024-01-11 15:25 | XMS_ITS | Encounter Summary ---
Author Organization [facility] Address [address] [place] [address] Care Team Providers Care Nozzle Tender Name Role Phone Rico Aburto MD Primary Care Provider [phone] Jacinta Black APRN Primary Care Provider [phone] Encounter Details Date Type Department Care Team (Late st Contact Info) Description 11/15/2019 Results Only Imaging [facility] Radiology Results [address] [place] [address] Jarred De La Cruz MD [address] [place] [address] [place] [address] Social History Tobacco Use Types Packs/Day Years Used Date Smoking Tobacco: Never Assessed Sex and Gender Information Value Date Recorded Sex Assigned at Not on file Gender Identity Female 09/26/2021 10:51 EDT Sexual Orientation Not on file documented as of this encounter Plan of Treatment Upcoming Encounters Date Type Department Care Team (Late st Contact Info) Description 02/16/2024 13:50 EDT Appointment [facility] Mammography [address] [place], [place] [address] documented as of this encounter Procedures Procedure Name Priority Date/Time Associated Diagnosis Comments US PELVIS TRANSVAGINAL COMPLETE 11/15/2019 8:37 EDT documented in this encounter Results * US PELVIS TRANSVAGINAL (11/15/2019 8:37 EDT) Anatomical Region Laterality Modality Pelvis Ultrasound 11/15/2019 8:34 EDT Narrative 11/15/2019 8:37 EDT ? EXAM: ULTRASOUND/TRANSVAGINAL - FUN HOUSE OPERATOR W/ DO EX. D/ (1631) ? CLINICAL INFORMATION: ? 1984 HYSTERECTOMY AND RT OOPHECTOMY ? RIGHT RETROPERITONEAL MASS ? R19.00 ? TRANSVAGINAL - FUN HOUSE OPERATOR W/ DOPPLER ? Signs and Symptoms/Comments: ??1984 HYSTERECTOMY AND RT OOPHORECTOMY. ? RETROPERITONEAL MASS, R19.00. Additional history of a left adnexal ? cystic lesion on the comparison CT of 11/01/2019. ? Comparison: CT abdomen pelvis on 11/01/2019 ? Technique: Pelvic ultrasound was performed. Color and Spectral ? Doppler imaging was also utilized with the assessment of both ? arterial and venous waveforms. Transvaginal scanning was performed. ? FINDINGS: ? Uterus: Post hysterectomy. ? Ovaries: ? Right ovary: Post right oophorectomy. ? Left ovary: ? Size: 5.2 cm x 4.9 cm x 3.3 cm. ? Volume : 74.9 cc. ? Doppler flow: Color Doppler flow is present with arterial and venous ? waveforms. ? Findings: An oval complex 5.0 cm left ovarian cystic lesion is ? present, with two smaller daughter cysts measuring approximately 1 cm ? each. A small solid mural nodule cannot be excluded, better ? appreciated on the recent comparison CT. ? Cul-de-sac: No free fluid. ? IMPRESSION: ? 1. ??Complex 5 cm left ovarian cystic lesion, with two small daughter ? cysts and a possible small solid mural component. In a postmenopausal ? patient, these findings are suspicious for ovarian neoplasm, either ? benign or malignant. Surgical consultation is recommended with strong ? consideration for resection. ? 2. ??Post hysterectomy and right oophorectomy. ? 3. ??Of note, a known soft tissue mass in the right upper quadrant ? PAGE 1 ? Signed Report ? (CONTINUED) ? abutting the diaphragm is not assessed on this ultrasound. Further ? clinical assessment is necessary. ? REPORT SIGNED IN OTHER VENDOR SYSTEM 11/15/2019 ?Reported By: Eric Campoverde MD ? CC: ? Transcribed Date/Time: 11/15/2019 (0837) ? Clay Miller: ? Printed Date/Time: 11/15/2019 (0837) ? PAGE 2 ? Signed Report ? Procedure Note Eric Campoverde MD - 11/15/2019 EXAM: ULTRASOUND/TRANSVAGINAL - FUN HOUSE OPERATOR W/ DO EX. D/ (1631) CLINICAL INFORMATION: 1984 HYSTERECTOMY AND RT OOPHECTOMY RIGHT RETROPERITONEAL MASS R19.00 TRANSVAGINAL - FUN HOUSE OPERATOR W/ DOPPLER Signs and Symptoms/Comments: 1984 HYSTERECTOMY AND RTOOPHORECTOMY. RETROPERITONEAL MASS, R19.00. Additional history of a left adnexal cystic lesion on the comparison CT of 11/01/2019. Comparison: CT abdomen pelvis on 11/01/2019 Technique: Pelvic ultrasound was performed. Color and Spectral Doppler imaging was also utilized with the assessment of both arterial and venous waveforms. Transvaginal scanning was performed. FINDINGS: Uterus: Post hysterectomy. Ovaries: Right ovary: Post right oophorectomy. Left ovary: Size: 5.2 cm x 4.9 cm x 3.3 cm. Volume : 74.9 cc. Doppler flow: Color Doppler flow is present with arterial andvenous waveforms. Findings: An oval complex 5.0 cm left ovarian cystic lesion is present, with two smaller daughter cysts measuring approximately 1cm each. A small solid mural nodule cannot be excluded, better appreciated on the recent comparison CT. Cul-de-sac: No free fluid. IMPRESSION: 1. Complex 5 cm left ovarian cystic lesion, with two smalldaughter cysts and a possible small solid mural component. In apostmenopausal patient, these findings are suspicious for ovarian neoplasm, either benign or malignant. Surgical consultation is recommended withstrong consideration for resection. 2. Post hysterectomy and right oophorectomy. 3. Of note, a known soft tissue mass in the right upper quadrant PAGE 1 Signed Report (CONTINUED) abutting the diaphragm is not assessed on this ultrasound. Further clinical assessment is necessary. REPORT SIGNED IN OTHER VENDOR SYSTEM 11/15/2019 Reported By: Eric Campoverde MD CC: Transcribed Date/Time: 11/15/2019 (0837) Clay Miller: Printed Date/Time: 11/15/2019 (0837) PAGE 2 Signed Report Jarred De La Cruz MD [facility] ORDERABLES documented in this encounter Visit Diagnoses Not on filedocumented in this encounter Additional Health Concerns Infection Onset Date Last Indicated Resolved Time R/O COVID-19 09/29/2023 09/29/2023 09/29/2023 13:1 8 EDT documented as of this encounter Care Teams Nozzle Tender Relationship Specialty Start Date End Date Rico Aburto MD [address] [place] [address] PCP - General 11/01/19 09/25/21 Jacinta Black APRN [address] [place] [address] PCP - General 09/26/21 documented as of this encounter
--- OUTSIDE RECORDS SUMMARY | 2024-01-11 15:25 | XMS_ITS | Encounter Summary ---
[facility] Organization [facility] Address [address] [place] [address] Care Team Providers Care Court Worker Name Role Phone Unavailable Primary Care Provider Unavailabl e Encounter Details Date Type Department Care Team (Latest Contact Info) Description 03/27/2005 6:00 EST - 03/27/2005 11:59 EST Hospital Encounter [facility] Perioperative Services - [address] [address] Suresh Bermudez MD [address] [place] [phone] Discharge Disposition: Home or Self Care Social History Tobacco Use Types Packs/Day Years Used Date Smoking Tobacco: Never Assessed Sex and Gender Information Value Date Recorded Sex Assigned at Not on file Gender Identity Female 09/26/2021 10:51 EDT Sexual Orientation Not on file documented as of this encounter Discharge Disposition Disposition Code Departure Means Destination Home or Self Care documented in this encounter OR Notes * OR Surgeon - Mookie Schmidt J - 03/27/2005 0000 EST PROCEDURE REPORT PT TYPE: OPPROC PT LOC: [id number] SERVICE DATE: 03/27/2005 SURGEON: Suresh Bermudez MD GUITAR PLAYER: Mookie Schmidt MD, Francois Davidson MD PREOPERATIVE DIAGNOSES: 1. Nasal telangiectasia, left naris. 2. Brow ptosis, bilateral. 3. Ptosis, bilateral. 4. Bilateral dermatochalasis. POSTOPERATIVE DIAGNOSES: 1. Nasal telangiectasia, left naris. 2. Brow ptosis, bilateral. 3. Ptosis, bilateral. 4. Bilateral dermatochalasis. PROCEDURE: 1. Cautery of nasal telangiectasia. 2. Bilateral upper eyelid blepharoplasty. 3. Bilateral transblepharoplasty brow lift with endotines. 4. Bilateral anterior levator resection. 5. Lateral canthopexy bilaterally. ANESTHESIA: Local, monitored anesthesia care, topical. INDICATIONS: Amalia Moreira is a 54-year-old woman with longstanding history of bilateral ptosis. Notably, she has significant brow ptosis and dermatochalasis. Furthermore, while her levator function isgood, the patient has marked visual field defects that correct with taping of the upper eyelids. Assuch, the decision was made to perform a brow lift, blepharoplasty, and levator recession. Furthermore, the patient complains of a nasal telangiectasia and desires management of this issue. After a osman discussion, during which the patient had the opportunity to ask questions and raise concerns, she consented freely to the procedure. NARRATIVE: As such, the patient was identified in the preanesthesia care unit and was brought to the operating room. She was placed in a supine position on the operating room table, and mild intravenous sedation was induced. The patient then received 5 mL of 2% lidocaine with epinephrine in the super brow location and along both upper eyelids. The patient was then prepped and draped in the usual sterile ophthalmic fashion. Attention was directed to the patient's right upper eyelid. Calipers were used to measure position 10 mm superior to the eyelash line centrally. This position was then marked. Positions 8 mm superiorto the eyelash line laterally and 7 mm superior to theeyelash line medially were again identified and marked. A curvilinear demarcation line was then drawn. Calipers were again used to measure a position 10 mm to the inferior aspect of the eyebrow. These points were then connected with a marking pen. This procedure was performed along both upper eyelids. The skin demarcated by this line was incised with a 15-scalpel. The skin was then excised in a suborbicularis fashion with Callie scissors. Hemostasis was achieved with wet-field cautery. Dissection was carried out in a suborbicularis fashion to the orbital rim. The soft tissue was excised until the periosteum overlying the orbital rim could be identified. It was then incised with the cut function of the Bovie unit. Blunt dissection was carried out with a periosteal elevator until the super brow position was identified. Hemostasis was again achieved with wet-field cautery. At this point, a line was drawn above the eyebrow, identifying the position of the lateral canthal angle. Calipers were used to identifya position 10 mm superior to the orbital rim on bone that corresponded with this position of the lateral canthal angle. The Endotine drill was used to create a hole for the Endotineunit at this position. The Endotine was then placed in the hole bilaterally. The periosteal flap was then positioned to be at the superior aspect of this Endotine unit. Evaluation revealed a modest brow lift bilaterally that was found to be symmetric in contour. The orbital septum was then incised with Callie scissors. The protruding orbital fat was then excised bilaterally. The medial fat pad was violated, and conservative excision was performed. The eyelid was everted, revealing the extent of the tarsus. It was found to be a roughly 9-mm tarsus bilaterally, it was found to be free of previous incision sites. The eyelid was trimmed to a fascial position and mild downward traction was performed. Electrocautery was performed through the overlying soft tissue down to the level of the tarsus bilaterally. A 5-0 Mersiline suturewas sewn throughthe tarsus in a horizontal fashion. Electrocautery was carried out, raising a flap of levator. At this point, the tarsus was re-everted bilaterally, identifying that the needle had not gone full thickness through the tarsus. Both arms of the double-arm Mersiline suture were then sewn through the levator flap and were tied in a slip knot fashion. Dissection was carried out along the lateral aspect of the blepharoplasty incision site with Phoenix tenotomy scissors. Once the inferior canthaltendon was identified, significant tugging was performed, revealing that it adequately mobilized the lower eyelid. A horizontal mattress suture of 5-0 Mersiline was sewn into the tendon. Both arms were then sutured into the periosteum overlying the lateral orbital rim bilaterally. These were then tied into position and were trimmed. Evaluation of the patient's eyelids revealed similar height and contour. As such, the slip knot wasreleased, and both arms of the Mersiline suture were sewn into position bilaterally. The knot was then trimmed. The four interrupted Monocryl sutures were used to recreate the eyelid crease. These were placed at the medial aspect of the wound at the positions corresponding with the medial and lateral aspects of the limbus and chalo position overlying the pupil. All knots were trimmed. The overlyingskin was closed with a running 6-0 Prolene suture. The patient tolerated the procedure well and there were no complications. Dr. Schmidt assisted with this procedure, as there was no resident available for assistance. The patient was taken to the postanesthesia care unit in good condition. ESTIMATED BLOOD LOSS: 10 mL. FLUIDS: Lactated Ringer. SPECIMENS: None. IMPLANTS: Endotine transblepharoplasty set. TUBES, PACKS, DRAINS: None. COMPLICATIONS: None. Signed by Suresh Bermudez MD 04/01/2005 14:29 Cassia Coleman, Viktor Bermudez MD Dictated by: Mookie Schmidt MD Suresh Bermudez MD - Mookie Schmidt MD A - RE Job ID: [id number] Document ID: [id number] cc: MD Suresh Anton MD Edward Wladis, MD - Mookie Schmidt MD A - re Job ID: [id number] Document ID: [id number] cc: MD Suresh Anton MD Edward Wladis, MD documented in this encounter Plan of Treatment Upcoming Encounters Date Type Department Care Team (Late st Contact Info) Description 02/16/2024 13:50 EDT Appointment [place] [phone] documented as of this encounter Visit Diagnoses Not on filedocumented in this encounter
--- OUTSIDE RECORDS SUMMARY | 2024-01-11 15:25 | XMS_ITS | Encounter Summary ---
Author Organization [facility] Address [address] [place] [address] Care Team Providers Care Burnisher And Bumper Name Role Phone Ilana Nowak Primary Care Provider [phone] Encounter Details Date Type Department Care Team (Latest Contact Info) Description 12/22/2018 12:55 EDT - 12/22/2018 23:59 EDT Hospital Encounter [address] [address] Unknown, Provider, Discharge Disposition: Home or Self Care Social History Tobacco Use Types Packs/Day Years Used Date Smoking Tobacco: Never Assessed Sex and Gender Information Value Date Recorded Sex Assigned at Not on file Gender Identity Female 09/26/2021 10:51 EDT Sexual Orientation Not on file documented as of this encounter Discharge Disposition Disposition Code Departure Means Destination Home or Self Long Term documented in this encounter Plan of Treatment Upcoming Encounters Date Type Department Care Team (Late st Contact Info) Description 02/16/2024 13:50 EDT Appointment [facility] Mammography [address] [place] [address] documented as of this encounter Visit Diagnoses Not on filedocumented in this encounter Care Teams Burnisher And Bumper Relationship Specialty Start Date End Date Ilana Nowak FNP [address] [place] [address] PCP - General 03/31/11 10/31/19 documented as of this encounter
--- OUTSIDE RECORDS SUMMARY | 2024-01-11 15:25 | XMS_ITS | Encounter Summary ---
Author Organization Health system Address [address] [place] [address] Care Team Providers Care Metal Window Screen Assembler Name Role Phone Rico Aburto MD Primary Care Provider [phone] Jacinta Black APRN Primary Care Provider [phone] Encounter Details Date Type Department Care Team (Late st Contact Info) Description 09/13/2021 Lab Requisition [facility] Pathology & Laboratory Medicine - [address] [id number] Outr Resulting Lab, Provider Social History Tobacco Use Types Packs/Day Years [...] Contact Info) Description 02/16/2024 13:[address] [facility] Mammography [address] [place] [phone] documented as of this encounter Procedures Procedure Name Priority Date/Time Associated Diagnosis Comments CA 125 Routine 09/12/2021 12:25 EDT documented in this encounter Results * CA 125 (09/12/2021 12:25 EDT) CA 125 26 <30 U/mL 09/15/2021 11:00 EDT [facility] Comment: NOTE: Serum CA 125 concentration should not be interpreted as absolute evidence for the presence or absence of malignant disease. Assayed on Siemens ADVIA trueAnthemaur XPT using chemiluminescent technology. ??Values obtained by using different assay methods cannot be used interchangeably. Blood VENOUS BLOOD / Unknown 09/12/2021 12:25 EDT 09/13/2021 21:47 EDT Provider Outr Resulting Lab CHEMISTRY & BLOOD GAS ORDERABLES [facility] [address] [place] [address] documented in this encounter Visit Diagnoses Not on filedocumented in this encounter Additional Health Concerns Infection Onset Date Last Indicated Resolved Time R/O COVID-19 09/29/2023 09/29/2023 09/29/2023 13:1 8 EDT documented as of this encounter Care Teams Metal Window Screen Assembler Relationship Specialty Start Date End Date Rico Aburto MD [address] [place] [address] PCP - General 11/01/19 09/25/21 Jacinta Black APRN [address] [place] [address] PCP - General 09/26/21 documented as of this encounter
--- OUTSIDE RECORDS SUMMARY | 2024-01-11 15:25 | XMS_ITS | Encounter Summary ---
Author Organization [facility] Address [address] [place] [address] Care Team Providers Care Complex Director Name Role Phone Jacinta Black SENG Primary Care Provider [phone] Reason for Visit * Reason Comments Sore Throat Nasal Congestion Headache Sinus Problems Encounter Details Date Type Department Care Team (Late st Contact Info) Description 09/29/2023 10:45 EDT Walk-In [facility] [address] [place] [address] Eduardo Khoury NP [address] [facility] [address] [place] [address] Viral pharyngitis (Primary Dx) Social History Tobacco Use Types Packs/Day Years Used Date Smoking Tobacco: Never Assessed Interpersonal Safety Answer Date Record ed Physically Hurt Never 12/17/2019 Verbally Threaten Not on file 12/17/2019 Sex and Gender Information Value Date Recorded Sex Assigned at Not on file Gender Identity Female 09/26/2021 10:51 EDT Sexual Orientation Not on file documented as of this encounter Last Filed Vital Signs Vital Sign Reading Time Taken Comments Blood Pressure 164/79 09/29/2023 1015 EDT Pulse 78 09/29/2023 1015 EDT Temperature 36.8 ??C (98.3 ??F) 09/29/2023 1015 EDT Respiratory Rate 16 09/29/2023 1015 EDT Oxygen Saturation 93% 09/29/2023 1015 EDT Inhaled Oxygen Concentration - - Weight - - Height - - Body Mass Index - - documented in this encounter Functional Status Functional Status Response Date of Assess ment Are you deaf or do you have serious difficulty h earing? No 11/29/2021 documented as of this encounter Patient Instructions * Patient Instructions* Eduardo Khoury NP - 09/29/2023 10:45 EDT Your strep throat test was negative. Your flu and COVID test will be sent to the hospital and will result this afternoon. We will call you if they are positive. In the meantime you could try switching antihistamines by using loratadine/Claritin and ibuprofen as needed for pain. I also recommend throat numbing spray or drops for your sore throat. Return to the clinic for worsening symptoms or concerning changes. documented in this encounter Progress Notes * Jaky Webb MA - 09/29/2023 1045 EDT CC/HPI: Pt c/o sore throat, headache, sinus pressure, chills, body aches, Sx started yesterday Covid Screening: In the last 72 hours, has the patient had: New or unusual cough, shortness of breath, new nasal congestion, sore throat, fever, chills, body aches, or new loss of taste or smell without a reasonable alternative diagnosis*? (If yes, assign to ARC) YES In the past 10 days, has the patient had a positive Covid test OR a confirmed close Covid exposure (<6ft for > 15mins in 24hr period)? (if yes, assign to ARC, regardless of vaccination status) NO *may be determined by RN or in discussion with available provider (BLOCK AND CASE MAKER's and CCA's can defer to Charge Nurse to complete triage when appropriate) PCP: Jacinta Black * Eduardo Khoury NP - 09/29/2023 1045 EDT [facility] Chief Complaint(s): Chief Complaint Patient presents with Sore Throat Nasal Congestion Headache Sinus Problems HPI: Amalia Moreira is a 72 y.o. yr old female who presents for evaluation of 1 day of sore throat, nasal congestion and runny nose, sinus pressure, headache. Sore throat is what is bothering her the most. No fever. Had some trouble breathing yesterday, that is much better today. ROS: Social History Tobacco Use Smoking Status Not on file Smokeless Tobacco Not on file Review of Systems Constitutional: Positive for malaise/fatigue. HENT: Positive for sore throat. Respiratory: Positive for cough and shortness of breath. Cardiovascular: Negative. Musculoskeletal: Negative. Skin: Negative. Neurological: Positive for headaches. All other systems reviewed and are negative. See HPI for details Objective: Vitals and nursing notes reviewed Examination: BP (!) 164/79 Pulse 78 Temp 36.8 ??C (98.3 ??F) (Oral) Resp 16 SpO2 93% Physical Exam Vitals and nursing note reviewed. Constitutional: General: She is not in acute distress. Appearance: Normal appearance. She is not ill-appearing. HENT: Head: Normocephalic and atraumatic. Right Ear: Tympanic membrane, ear canal and external ear normal. Left Ear: Tympanic membrane, ear canal and external ear normal. Nose: Nose normal. Mouth/Throat: Mouth: Mucous membranes are moist. Pharynx: Oropharynx is clear. No oropharyngeal exudate or posterior oropharyngeal erythema. Eyes: General: No scleral icterus. Conjunctiva/sclera: Conjunctivae normal. Neck: Comments: Submandibular adenopathy bilateral Cardiovascular: Rate and Rhythm: Normal rate and regular rhythm. Pulmonary: Effort: Pulmonary effort is normal. Breath sounds: Normal breath sounds. Musculoskeletal: Cervical back: Normal range of motion and neck supple. No rigidity. Lymphadenopathy: Cervical: Cervical adenopathy present. Skin: General: Skin is warm and dry. Neurological: General: No focal deficit present. Mental Status: She is alert and oriented to person, place, and time. Mental status is at baseline. Psychiatric: Mood and Affect: Mood normal. Behavior: Behavior normal. Assessment & Plan: MDM: Patient with submandibular adenopathy bilateral, body aches, headache and sore throat. Occasional cough. Yesterday felt some trouble breathing but this is much better today. Rapid strep is negative. Lung sounds are clear and the patient is nontoxic in appearance. We will test her for COVID fluat her request. She has had COVID before. SpO2 93% which is baseline for this patient no tachycardia or fever. Lung sounds are clear. Patient is generally well appearing, afebrile, non toxic, well hydrated, stable on exam. I have reviewed current problem list, current medications and allergies. An appropriate medical screening examination was performed. The patient was assessed prior to discharge and deemed stable for discharge home. This note may be in part documented using [employer] dictation software. Please forgive any errors, omissions or typos that may result from use of dictation. I printed material and reviewed home management and follow up in detail with patient, see patient instructions below. Patient is advised in use of [employer] to access any lab results or other pertinentvisit information. All questions are answered. Patient is advised to follow up for urgent reassessment for any new/worsening signs and symptoms, otherwise, [facility] that persist past current course of treatment or expected resolution as discussed. Patient verbalizes understanding and agreement with this plan of care. documented in this encounter Plan of Treatment Upcoming Encounters Date Type Department Care Team (Late st Contact Info) Description 02/16/2024 13:50 [place] [address] documented as of this encounter Procedures Procedure Name Priority Date/Time Associated Diagnosis Comments SARS COV2, FLU A/B, RSV DETECT BY PCR Routine 09/29/2023 11:23 EDT Viral pharyngitis POCT RAPID STREP SCREEN Routine 09/29/2023 Viral pharyngitis documented in this encounter Results * SARS COV2, FLU A/B, RSV DETECT BY PCR (09/29/2023 11:23 EDT) FLU A RNA Result (FLARES) Negative Negative 09/29/2023 13:18 EDT [facility] FLU B RNA Result (FLBRES) Negative Negative 09/29/2023 13:18 EDT [facility] RSV RNA Result (RSVRES) Negative Negative 09/29/2023 13:18 EDT [facility] COVID-19 rt-PCR Result Negative Negative 09/29/2023 13:18 EDT [facility] Comment: The 2019 novel coronavirus (SARS-CoV-2) target nucleic acids are not detected. Performed on the [employer] GeneXpert Instrument Swab NASOPHARYNGEAL STRUCTURE / Unknown Swab / Unknown 09/29/2023 11:23 EDT 09/29/2023 11:23 EDT Eduardo Khoury RN HEMODIALYSIS MICROBIOLOGY - GENER AL ORDERABLES [facility] [address] [place] [address] * POCT RAPID STREP SCREEN (09/29/2023) Rapid Strep Test, POC Negative Negative [facility] POINT [facility] C[facility] Background Clear? Yes [facility] Control Line Present Yes [facility] Rgt A + Rgt B= Yellow: Yes [facility] Culture Sent to Lab? No [facility] Swab PHARYNGEAL STRUCTURE / Unknown 09/29/2023 Eduardo Khoury NP POINT OF CARE TEST O RDERABLES [facility] POINT [facility] CARE documented in this encounter Visit Diagnoses Diagnosis Viral pharyngitis- Primary Acute pharyngitis documented in this encounter Historical Medications * This list may reflect changes made after this encounter. Medication Sig Dispensed Refills Start Date End Date spironolactone (ALDACTONE) 25 mg tablet Take 1 Tablet by mouth daily. polyethylene glycol 3350 (MIRALAX) 17 gram packet Take 17 g by mouth daily. multivitamin combination no.56 tablet,chewable Take by mouth. Magnesium 250 mg tablet Take 330 mg by mouth. latanoprost (XALATAN) 0.005 % ophthalmic solution INSTILL 1 DROP IN BOTH EYES EVERY DAY AT BEDTIME 09/10/2023 furosemide (LASIX) 20 mg tablet daily. 12/11/2022 dorzolamide (TRUSOPT) 2 % ophthalmic solution INSTILL 1 DROP INTO LEFT EYE TWICE DAILY 09/10/2023 cyclobenzaprine (FLEXERIL) 5 mg tablet take 1 tablet by mouth 2 times every day as needed spasms 04/20/2023 Cholecalciferol, Vitamin D3, 25 mcg (1,000 unit) capsule Take by mouth. cetirizine (ZYRTEC) 10 mg tablet Take 1 Tablet by mouth every evening. albuterol 90 mcg/actuation inhaler INHALE 1 PUFF FOUR TIMES DAILY NEEDED FOR SHORTNESS OF BREATH OR WHEEZING ibuprofen (MOTRIN) 800 mg tablet 1 tablet with food or milk as needed 01/04/2024 amoxicillin (AMOXIL) 500 mg capsule take 2 capsule by mouth now then 1 capsule every 8 hours 07/19/2023 01/02/2024 added in this encounter Additional Health Concerns Infection Onset Date Last Indicated Resolved Time R/O COVID-19 09/29/2023 09/29/2023 09/29/2023 13:1 8 EDT documented as of this encounter Care Teams Complex Director Relationship Specialty Start Date End Date Jacinta Black APRN [address] [place] [id number] PCP - General 09/26/21 documented as of this encounter
--- OUTSIDE RECORDS SUMMARY | 2024-01-11 15:25 | XMS_ITS | Encounter Summary ---
Author Organization [facility] Address [address] [place] [address] Care Team Providers Care Manager Application Development Name Role Phone Rico Aburto MD Primary Care Provider [phone] Jacinta Black APRN Primary Care Provider [phone] Encounter Details Date Type Department Care Team (Late st Contact Info) Description 11/30/2019 Results Only Imaging [facility] Radiology Results [address] [place], [place] [id number] Rico Aburto MD [address] [place] [address] Social History Tobacco Use Types Packs/Day Years Used Date Smoking Tobacco: Never Assessed Sex and Gender Information Value Date Recorded Sex Assigned at Not on file Gender Identity Female 09/26/2021 10:51 EDT Sexual Orientation Not on file documented as of this encounter Plan of Treatment Upcoming Encounters Date Type Department Care Team (Late st Contact Info) Description 02/16/2024 13:50 EDT Appointment [facility] Mammography [address], [place] [id number] documented as of this encounter Procedures Procedure Name Priority Date/Time Associated Diagnosis Comments CT ABDOMEN PELVIS W WO CONTRAST 11/30/2019 15:43 EDT documented in this encounter Results * CT ABDOMEN PELVIS W WO CONTRAST (11/30/2019 15:43 EDT) Anatomical Region Laterality Modality Body, Abdomen, Pelvis, Abdomen and Pelvis Computed Tomography 11/30/2019 15:4 0 EDT Narrative 11/30/2019 15:43 EDT ? EXAM: CAT SCAN/ABDOMEN PELVIS W/WO CONTRA EX. D/ (1410) ? CLINICAL INFORMATION: ? R10.13 EPIGASTRIC ABD PAIN ? R/O INTESTIONAL ISCHEMIA AND COMPRESSION ON ? BOWEL BY ABERRAT COURSE OF MESENTERIC ARTERIES ? 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 ABDOMEN PELVIS W/WO CONTRAST ??11/30/2019 2:10 PM ? Signs and Symptoms/Comments: ? R10.13 EPIGASTRIC ABD PAIN, R/O INTESTIONAL ISCHEMIA AND COMPRESSION ? ON, BOWEL BY ABERRAT COURSE OF MESENTERIC ARTERIES, HX OF MULTI ABD ? SURGERIES / SPLENIC VEIN THROMBOSIS ? Technique: CT angiography was performed with and without intravenous ? contrast. Precontrast, arterial phase and venous phase acquisitions ? were acquired. Multiplanar reformations were created ? Comparison: CT abdomen pelvis 11/01/2019 ? FINDINGS: ? Vascular findings: ? Mild aortoiliac atherosclerotic disease is present. The aorta is ? normal in caliber. There is atherosclerotic plaque at the origin of ? the celiac axis that results in minimal stenosis. The SMA origin is ? widely patent. The BISI origin is also patent. Atherosclerotic plaque ? at the renal artery origins results in minimal stenosis. No ? significant stenosis is detected in either common iliac, external ? iliac, common femoral or included portions of the superficial femoral ? arteries. The mesenteric arteries appear normal. No abnormal vascular ? compression is detected. ? The SMV appears patent. The distal splenic vein appears occluded near ? its confluence with the SMV and there are numerous collateral vessels ? arising from the distal aspect of the splenic vein. Tortuous veins ? are present throughout the theodora hepatis. The appearance is ? consistent with cavernous transformation of the portal vein. ? Nonvascular findings: ? Lower chest: The lung bases are clear. There is no pleural effusion ? or pneumothorax. ? Hepatobiliary: Mild hepatic steatosis. No focal hepatic lesion. ? Status post cholecystectomy. ? Spleen, pancreas, adrenal glands: No abnormalities. ? Kidneys, ureters, bladder: No abnormalities ? Reproductive: The patient status post hysterectomy. There is a 5.5 x ? 3.8 cm cystic lesion in the vicinity of the left adnexa is similar ? compared to prior. ? Bowel: The stomach and small bowel appear within normal limits. The ? patient status post right hemicolectomy and there is newly colic ? anastomosis. Colonic diverticulosis is present. There is focal fat ? PAGE 1 ? Signed Report ? (CONTINUED) ? stranding adjacent to a focally inflamed diverticulum in the proximal ? descending colon (coronal series 3 image 81), consistent with ? diverticulitis. There is no associated organized fluid collection and ? there is no extraluminal air. ? Peritoneal cavity / Subperitoneal space: Again noted is a lobular ? low-density retroperitoneal mass that abuts the right hemidiaphragm ? that measures 13 x 19 mm, unchanged compared to prior. This remains ? indeterminate. ? Lymphatic: Scattered aortoiliac atherosclerosis. No aneurysm. No ? lymphadenopathy. ? Abdominal wall: Intact. ? Musculoskeletal: Chronic bilateral L4 pars defects and grade 1 L4-5 ? anterolisthesis. Degenerative spondylosis of the lumbar spine. No ? acute abnormality detected. ? IMPRESSION: ? 1. Clonic diverticulosis and mild diverticulitis involving the ? proximal descending colon. No associated fluid collection. No ? extraluminal air. ? 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 ? 3. Mesenteric vessels appear normal. No CT findings of intestinal ? ischemia. ? 4. Mild atherosclerosis. No significant stenosis. ? 5. Indeterminant 3.3 cm retroperitoneal mass along the inferior ? margin of the right hemidiaphragm. The appearance is unchanged ? compared to prior. ? 6. Left adnexal 5.5 cm cystic lesion, not significant changed ? compared to prior. ? REPORT SIGNED IN OTHER VENDOR SYSTEM 11/30/2019 ?Reported By: Sanjay Parra MD ? CC: ? Transcribed Date/Time: 11/30/2019 (4843) ? Banking Analyst: ? Printed Date/Time: 11/30/2019 (1543) ? PAGE 2 ? Signed Report ? Procedure Note Sanjay Parra MD - 11/30/2019 EXAM: CAT SCAN/ABDOMEN PELVIS W/WO CONTRA EX. D/ (1410) CLINICAL INFORMATION: R10.13 EPIGASTRIC ABD PAIN R/O INTESTIONAL ISCHEMIA AND COMPRESSION ON BOWEL BY ABERRAT COURSE OF MESENTERIC ARTERIES HX OF MULTI ABD SURGERIES / SPLENIC VEIN THROMBOSIS ABDOMEN PELVIS W/WO CONTRAST 11/30/2019 2:10 PM Signs and Symptoms/Comments: R10.13 EPIGASTRIC ABD PAIN, R/O INTESTIONAL ISCHEMIA ANDCOMPRESSION ON, BOWEL BY ABERRAT COURSE OF MESENTERIC ARTERIES, HX OF MULTI ABD SURGERIES / SPLENIC VEIN THROMBOSIS Technique: CT angiography was performed with and withoutintravenous contrast. Precontrast, arterial phase and venous phase acquisitions were acquired. Multiplanar reformations were created Comparison: CT abdomen pelvis 11/01/2019 FINDINGS: Vascular findings: Mild aortoiliac atherosclerotic disease is present. The aorta is normal in caliber. There is atherosclerotic plaque at the origin of the celiac axis that results in minimal stenosis. The SMA origin is widely patent. The BISI origin is also patent. Atheroscleroticplaque at the renal artery origins results in minimal stenosis. No significant stenosis is detected in either common iliac, external iliac, common femoral or included portions of the superficialfemoral arteries. The mesenteric arteries appear normal. No abnormalvascular compression is detected. The SMV appears patent. The distal splenic vein appears occludednear its confluence with the SMV and there are numerous collateralvessels arising from the distal aspect of the splenic vein. Tortuous veins are present throughout the theodora hepatis. 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 Nonvascular findings: Lower chest: The lung bases are clear. There is no pleural effusion or pneumothorax. Hepatobiliary: Mild hepatic steatosis. No focal hepatic lesion. Status post cholecystectomy. Spleen, pancreas, adrenal glands: No abnormalities. Kidneys, ureters, bladder: No abnormalities Reproductive: The patient status post hysterectomy. There is a 5.5x 3.8 cm cystic lesion in the vicinity of the left adnexa is similar compared to prior. Bowel: The stomach and small bowel appear within normal limits. The patient status post right hemicolectomy and there is newly colic anastomosis. Colonic diverticulosis is present. There is focal fat PAGE 1 Signed Report (CONTINUED) stranding adjacent to a focally inflamed diverticulum in theproximal descending colon (coronal series 3 image 81), consistent with diverticulitis. There is no associated organized fluid collectionand there is no extraluminal air. Peritoneal cavity / Subperitoneal space: Again noted is a lobular low-density retroperitoneal mass that abuts the right hemidiaphragm that measures 13 x 19 mm, unchanged compared to prior. This remains indeterminate. Lymphatic: Scattered aortoiliac atherosclerosis. No aneurysm. No lymphadenopathy. Abdominal wall: Intact. Musculoskeletal: Chronic bilateral L4 pars defects and grade 1 L4-5 anterolisthesis. Degenerative spondylosis of the lumbar spine. No acute abnormality detected. IMPRESSION: 1. Clonic diverticulosis and mild diverticulitis involving the proximal descending colon. No associated fluid collection. No extraluminal air. 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 3. Mesenteric vessels appear normal. No CT findings of intestinal ischemia. 4. Mild atherosclerosis. No significant stenosis. 5. Indeterminant 3.3 cm retroperitoneal mass along the inferior margin of the right hemidiaphragm. The appearance is unchanged compared to prior. 6. Left adnexal 5.5 cm cystic lesion, not significant changed compared to prior. REPORT SIGNED IN OTHER VENDOR SYSTEM 11/30/2019 Reported By: Sanjay Parra MD CC: Transcribed Date/Time: 11/30/2019 (1541) Banking Analyst: SCTrini Printed Date/Time: 11/30/2019 (4355) PAGE 2 Signed Report Rico Aburto MD IMG CT ORDERABLES documented in this encounter Visit Diagnoses Not on filedocumented in this encounter Additional Health Concerns Infection Onset Date Last Indicated Resolved Time R/O COVID-19 09/29/2023 09/29/2023 09/29/2023 13:1 8 EDT documented as of this encounter Care Teams Manager Application Development Relationship Specialty Start Date End Date Rico Aburto MD [address] [place] [address] PCP - General 11/01/19 09/25/21 Jacinta Black APRN [address] [place] [address] PCP - General 09/26/21 documented as of this encounter
--- OUTSIDE RECORDS SUMMARY | 2024-01-11 15:25 | XMS_ITS | Encounter Summary ---
Author Organization [facility] Address [address] [place] [address] Care Team Providers Care Security Sergeant Name Role Phone Rico Aburto MD Primary Care Provider [phone] Jacinta Black APRN Primary Care Provider [phone] Encounter Details Date Type Department Care Team (Late st Contact Info) Description 02/06/2021 Results Only Imaging [facility] Radiology Results [address] [place] [address] Rico Aburto MD [address] [place] [address] Social History Tobacco Use Types Packs/Day [...] Contact Info) Description 02/16/2024 13:50 EDT Appointment [facility] Mammography [address] [place], [place] [address] documented as of this encounter Procedures Procedure Name Priority Date/Time Associated Diagnosis Comments MA BREAST SCREENING VIRAL BILATERAL 02/06/2021 12:04 EDT documented in this encounter Results * MA BREAST SCREENING VIRAL BILATERAL (02/06/2021 12:04 EDT) Anatomical Region Laterality Modality Breast Bilateral Mammography 02/06/2021 12:0 4 EDT Narrative 02/06/2021 12:04 EDT ? EXAM: MAMMOGRAM/MAMMO BILATERAL SCREEN W ??EX. D/ (1054) ? CLINICAL INFORMATION: ? Z12.31 SCREENING ? TECHNIQUE: ??Full field digital whole breast 2D (C-view) and 3D CC and ? MLO views of both breasts were obtained. CAD technology was utilized. ? COMPARISON: Comparison has been made to previous images ? FINDINGS: ??The fibroglandular patterns of the breasts are normal. ? There has been no change when compared to previous mammograms and ? there is no mammographic evidence of cancer. The breast tissue is ? almost entirely fatty. ? FINAL ASSESSMENT: ??BILATERAL BREAST - Category 1 - Negative. Routine ? mammographic follow-up is recommended. ? These results will be communicated to your patient via a lay letter ? from Radiology. ??If any additional imaging is needed we will contact ? your patient directly. ? REPORT SIGNED IN OTHER VENDOR SYSTEM 02/06/2021 ?Reported By: Pavan Lora MD ? CC: ? Transcribed Date/Time: 02/06/2021 (1204) ? Dinkey Engine Operator: ? Printed Date/Time: 02/06/2021 (1343) ? PAGE 1 ? Signed Report ? Procedure Note Pavan Lora MD - 02/06/2021 EXAM: MAMMOGRAM/MAMMO BILATERAL SCREEN W EX. D/ (1054) CLINICAL INFORMATION: Z12.31 SCREENING TECHNIQUE: Full field digital whole breast 2D (C-view) and 3D CCand MLO views of both breasts were obtained. CAD technology wasutilized. COMPARISON: Comparison has been made to previous images FINDINGS: The fibroglandular patterns of the breasts are normal. There has been no change when compared to previous mammograms and there is no mammographic evidence of cancer. The breast tissue is almost entirely fatty. FINAL ASSESSMENT: BILATERAL BREAST - Category 1 - Negative.Routine mammographic follow-up is recommended. These results will be communicated to your patient via a lay letter from Radiology. If any additional imaging is needed we willcontact your patient directly. REPORT SIGNED IN OTHER VENDOR SYSTEM 02/06/2021 Reported By: Pavan Lora MD CC: Transcribed Date/Time: 02/06/2021 (2875) Dinkey Engine Operator: Printed Date/Time: 02/06/2021 (1411) PAGE 1 Signed Report Rico Aburto MD IMG MAMMOGRAPHY [facility] documented in this encounter Visit Diagnoses Not on filedocumented in this encounter Additional Health Concerns Infection Onset Date Last Indicated Resolved Time R/O COVID-19 09/29/2023 09/29/2023 09/29/2023 13:1 8 EDT documented as of this encounter Care Teams Security Sergeant Relationship Specialty Start Date End Date Rico Aburto MD [address] [place] [address] PCP - General 11/01/19 09/25/21 Jacinta Black APRN [address] [place] [address] PCP - General 09/26/21 documented as of this encounter
--- OUTSIDE RECORDS SUMMARY | 2024-01-11 15:25 | XMS_ITS | Encounter Summary ---
Author Organization [facility] Address [address] [place] [address] Care Team Providers Care Brick Mason Name Role Phone Unavailable Primary Care Provider Unavailabl e Encounter Details Date Type Department Care Team (Late st Contact Info) Description 03/25/2011 Results Only [facility] [phone] Fish Marin, DO [address] [place] [phone] Social History Tobacco Use Types Packs/Day Years Used Date Smoking Tobacco: Never Assessed Sex and Gender Information Value Date Recorded Sex Assigned at Not on file Gender Identity Female 09/26/2021 10:51 EDT Sexual Orientation Not on file documented as of this encounter Plan of Treatment Upcoming Encounters Date Type Department Care Team ([facility] Contact Info) Description 02/16/2024 13:50 EDT Appointment [facility] Mammography [address] [place] [address] documented as of this encounter Procedures Procedure Name Priority Date/Time Associated Diagnosis Comments SURGICAL PATHOLOGY Routine 03/25/2011 0:00 EST documented in this encounter Results * SURGICAL PATHOLOGY (03/25/2011 0:00 EST) Pathology Report: SURGICAL PATHOLOGY REPORT Reports generated via electronic interface contain original data; however they are lacking the format of the original report. Caution should be taken when reading/interpreti ng unformatted reports. Name: ? AMALIA MOREIRA ? Accession #: ? [id number] ? : ? 1950 (Age: 60) ??F ? Collect Date: ? 03/25/2011 ? Location: ? [facility] ? Receive Date: ? 03/26/2011 ? Provider: FISH MARIN DO Copy to: MARIO BRYCE BUSINESS FUNCTIONAL ANALYST ? Final Pathologic Diagnosis: ? Stomach, antrum, biopsy: 1. ?Antral mucosa with mild chronic gastritis and reactive foveolar hyperplasia. ? 2. ?? No Helicobacter pylori-like microorganisms identified on H&E-stained sections. ?? Document reviewed and electronically signed by: JENNIFER WALLIS MD Report ??Date: 03/27/2011 17:07 By the signature above, the attending physician certifies that he/she has personally conducted a gross and/or microscopic examination of the described specimens and rendered or confirmed the above diagnosis. Specimen(s) Received: ? Gastric antrum bx Clinical History: ? Abdominal pain, epigastric Gross Description: ? Received in formalin labelled Amalia Moreira and gastric antrum bx are two light biopsies measuring 0.3 x 0.3 x 0.2 cm and 0.4 x 0.3 x 0.2 cm. ??The specimens are submitted intact in one cassette. (Ozzie Baptiste)/mpl End of Report ELYSE MARQUEZ 03/25/2011 03/26/2011 8:2 6 EST Fish Marin DO PATHOLOGY ORDERABLES ELYSE MARQUEZ [address] [place] [address] documented in this encounter Visit Diagnoses Not on filedocumented in this encounter
--- OUTSIDE RECORDS SUMMARY | 2024-01-11 15:25 | XMS_ITS | Encounter Summary ---
Author Organization [facility] Address [address] [place] [address] Care Team Providers Care Cover Mat Machine Operator Name Role Phone Ilana Nowak Primary Care Provider [phone] Encounter Details Date Type Department Care Team (Late st Contact Info) Description 12/21/2017 Historical Results Only [facility] Radiology Results [address] [place] [address] Rico Aburto MD [address] [place], [place] [address] Social History Tobacco Use Types Packs/Day Years Used Date Smoking Tobacco: Never Assessed Sex and Gender Information Value Date Recorded Sex Assigned at Not on file Gender Identity Female 09/26/2021 10:51 EDT Sexual Orientation Not on file documented as of this encounter Plan of Treatment Upcoming Encounters Date Type Department Care Team (Late st Contact Info) Description 02/16/2024 13:50 EDT Appointment [facility] Mammography [address] [place] [address] documented as of this encounter Visit Diagnoses Not on filedocumented in this encounter Care Teams Cover Mat Machine Operator Relationship Specialty Start Date End Date Ilana Nowak FNP [address] [place], [place] [address] PCP - General 03/31/11 10/31/19 documented as of this encounter
--- OUTSIDE RECORDS SUMMARY | 2024-01-11 15:25 | XMS_ITS | Encounter Summary ---
Author Organization [facility] Address [address] [place] [address] Care Team Providers Care Fine Artist Name Role Phone Unavailable Primary Care Provider Unavailabl e Encounter Details Date Type Department Care Team (Latest Contact Info) Description 06/30/2005 11:06 EST - 06/30/2005 11:59 EST Hospital Encounter [facility] [place] [address] [place] [address] Mookie Schmidt MD [address] [place] [address] Discharge Disposition: Auto Discharge Social History Tobacco Use Types Packs/Day Years Used Date Smoking Tobacco: Never Assessed Sex and Gender Information Value Date Recorded Sex Assigned at Not on file Gender Identity Female 09/26/2021 10:51 EDT Sexual Orientation Not on file documented as of this encounter Discharge Disposition Disposition Code Departure Means Destination Auto Discharge documented in this encounter Plan of Treatment Upcoming Encounters Date Type Department Care Team (Late st Contact Info) Description 02/16/2024 13:50 EDT Appointment [facility] Mammography [address] [place] [address] documented as of this encounter Visit Diagnoses Not on filedocumented in this encounter
--- OUTSIDE RECORDS SUMMARY | 2024-01-11 15:25 | XMS_ITS | Encounter Summary ---
Author Organization [facility] Address [address] [place] [address] Care Team Providers Care Mascara Molder Name Role Phone Rico Aburto MD Primary Care Provider [phone] Jacinta Black APRN Primary Care Provider [phone] Encounter Details Date Type Department Care Team (Late st Contact Info) Description 11/01/2019 Results Only Imaging [facility] [address] [place] [address] Agusto Aquino MD Social History Tobacco Use Types Packs/Day Years [...] 13:50 EDT Appointment [facility] [address] [place] [address] documented as of this encounter Procedures Procedure Name Priority Date/Time Associated Diagnosis Comments CT ABDOMEN PELVIS W CONTRAST 11/01/2019 16:36 EDT EKG 12-LEAD 11/01/2019 14:57 EDT documented in this encounter Results * CT ABDOMEN PELVIS W CONTRAST (11/01/2019 16:36 EDT) Anatomical Region Laterality Modality Body, Abdomen, Pelvis, Abdomen and Pelvis Computed Tomography 11/01/2019 16:3 3 EDT Narrative 11/01/2019 16:36 EDT ? EXAM: CAT SCAN/ABDOMEN PELVIS WITH CONTRA EX. D/ (1620) ? CLINICAL INFORMATION: ? upper abd pain, weight loss anorexia ? ABDOMEN PELVIS WITH CONTRAST ? Signs and Symptoms/Comments: ??upper abd pain, weight loss anorexia ? Comparison: None. ? Technique: CT abdomen and pelvis was performed with the ? administration of 100 mL Omnipaque 350 contrast. Multiplanar ? reconstructions were performed. ? FINDINGS: ? Visible Chest: The visible lung bases are unremarkable. ? Solid Organs: The liver is normal. No intra or extrahepatic biliary ? ductal dilatation is present. Clips are seen in the gallbladder ? fossa. There is a right upper quadrant mass abutting the diaphragm at ? the level of the upper pole of the right kidney in the right upper ? quadrant area measuring 2.6 x 2.0 x 3.0 cm (series 2 image 41 and ? series 4 image 71). Numerous varicosities are seen in the area of the ? gallbladder fossa (series 2 images 30-50). Small varices are seen ? near the distal esophagus at the GE junction. Mild vague haziness is ? seen adjacent to the pancreatic head (series 4 image 41). No discrete ? pancreatic mass is visible.. The spleen is normal. The adrenal glands ? are normal. The kidneys are normal. ? Bowel, Peritoneal Cavity ?? Body Wall: The stomach is normal. The ? small bowel is normal without evidence of obstruction. Numerous ? diverticuli are seen in the distal colon. No pericolonic stranding or ? abscess formation is noted. An anastomotic sutures seen in the ? midabdomen and the patient appears to be status post right ? hemicolectomy.. No intraperitoneal free fluid or free air is present. ? The body wall is unremarkable. ? Pelvis: The bladder is normal. The patient appears to be status post ? hysterectomy. In the area of the left adnexa, there is a 5.2 x 3.8 cm ? cystic structure (series 2 image 117).. ? Lymphovascular: No enlarged abdominal or pelvic lymph nodes are ? present. Diffuse aortic atherosclerosis is seen. The caliber of the ? abdominal aorta is unremarkable.. ? Bones: The osseous structures are unremarkable. ? IMPRESSION: ? 1. Soft tissue mass in the right upper quadrant of the abdomen ? abutting the posterior diaphragm measuring 2.6 x 2.0 x 3.0 cm. This ? appearance is worrisome for malignancy. Further assessment is ? required. ? 2. Minimal haziness adjacent to the pancreatic head. This could ? reflect fatty infiltration, though I cannot exclude pancreatitis. ? PAGE 1 ? Signed Report ? (CONTINUED) ? Please correlate with pancreatic enzymes. ? 3. Numerous varices in the gallbladder fossa and gastroesophageal ? area. This appearance is suggestive of cirrhosis. ? 4. Diverticulosis. No imaging evidence of acute diverticulitis is ? detected. ? 5. Left adnexa 5.2 x 3.8 cm cystic structure. Pelvic ultrasound is ? recommended. ? 6. Atherosclerosis. ? These findings were phoned and discussed directly with Dr. Liz ? Kenia at 4:32 PM on 11/01/2019. ? REPORT SIGNED IN OTHER VENDOR SYSTEM 11/01/2019 ?Reported By: Kg Lane MD ? CC: ? Transcribed Date/Time: 11/01/2019 (1636) ? Manager Agency: [email or web address] ? Printed Date/Time: 11/01/2019 (1636) ? PAGE 2 ? Signed Report ? Procedure Note Kg Lane MD - 11/01/2019 EXAM: CAT SCAN/ABDOMEN PELVIS WITH CONTRA EX. D/ (1620) CLINICAL INFORMATION: upper abd pain, weight loss anorexia ABDOMEN PELVIS WITH CONTRAST Signs and Symptoms/Comments: upper abd pain, weight loss anorexia Comparison: None. Technique: CT abdomen and pelvis was performed with the administration of 100 mL Omnipaque 350 contrast. Multiplanar reconstructions were performed. FINDINGS: Visible Chest: The visible lung bases are unremarkable. Solid Organs: The liver is normal. No intra or extrahepatic biliary ductal dilatation is present. Clips are seen in the gallbladder fossa. There is a right upper quadrant mass abutting the diaphragmat the level of the upper pole of the right kidney in the right upper quadrant area measuring 2.6 x 2.0 x 3.0 cm (series 2 image 41 and series 4 image 71). Numerous varicosities are seen in the area ofthe gallbladder fossa (series 2 images 30-50). Small varices are seen near the distal esophagus at the GE junction. Mild vague hazinessis seen adjacent to the pancreatic head (series 4 image 41). Nodiscrete pancreatic mass is visible.. The spleen is normal. The adrenalglands are normal. The kidneys are normal. Bowel, Peritoneal Cavity Body Wall: The stomach is normal. The small bowel is normal without evidence of obstruction. Numerous diverticuli are seen in the distal colon. No pericolonic strandingor abscess formation is noted. An anastomotic sutures seen in the midabdomen and the patient appears to be status post right hemicolectomy.. No intraperitoneal free fluid or free air ispresent. The body wall is unremarkable. Pelvis: The bladder is normal. The patient appears to be statuspost hysterectomy. In the area of the left adnexa, there is a 5.2 x 3.8cm cystic structure (series 2 image 117).. Lymphovascular: No enlarged abdominal or pelvic lymph nodes are present. Diffuse aortic atherosclerosis is seen. The caliber of the abdominal aorta is unremarkable.. Bones: The osseous structures are unremarkable. IMPRESSION: 1. Soft tissue mass in the right upper quadrant of the abdomen abutting the posterior diaphragm measuring 2.6 x 2.0 x 3.0 cm. This appearance is worrisome for malignancy. Further assessment is required. 2. Minimal haziness adjacent to the pancreatic head. This could reflect fatty infiltration, though I cannot exclude pancreatitis. PAGE 1 Signed Report (CONTINUED) Please correlate with pancreatic enzymes. 3. Numerous varices in the gallbladder fossa and gastroesophageal area. This appearance is suggestive of cirrhosis. 4. Diverticulosis. No imaging evidence of acute diverticulitis is detected. 5. Left adnexa 5.2 x 3.8 cm cystic structure. Pelvic ultrasound is recommended. 6. Atherosclerosis. These findings were phoned and discussed directly with Dr. Agusto Aquino at 4:32 PM on 11/01/2019. REPORT SIGNED IN OTHER VENDOR SYSTEM 11/01/2019 Reported By: Kg Lane MD CC: Transcribed Date/Time: 11/01/2019 (505) Manager Agency: Printed Date/Time: 11/01/2019 (163) PAGE 2 Signed Report Agusto Aquino MD IMG CT ORDERABLES * EKG 12-LEAD (11/01/2019 14:57 EDT) 11/01/2019 14:5 7 EDT Narrative [facility] - 11/01/2019 14:57 EDT ? [facility] ? Test Date: ?2019-11-01 14:57:08 Pat Name: ? AMALIA NORTH ?Department: ?Room: ? Gender: ? F ?Purchaser: ?? RB : ?1950 ? Requested By: Order Number: ?Reading MD: ?? Cruz Lischke, MD ? Measurements Intervals ?[place] ? Rate: ? 75 ? P: ?-1 AK: ? 188 ?QRS: ?-10 QRSD: ? 78 ? T: ?-12 QT: ? 402 ? QTc: ?448 ? Interpretive Statements Normal sinus rhythm Normal ECG No previous ECG available for comparison Electronically Signed On 11-01-2019 15:18:57 EDT by Cruz Hidalgo MD [email or web address] Procedure Note Cruz Hidalgo MD - 11/01/2019 [facility] Test Date: 2019-11-01 14:57:08 Pat Name: AMALIA MOREIRA Department: Room: Gender: F Purchaser: : 1950 Requested By: Order Number: Reading MD: Cruz Hidalgo MD Measurements Intervals [place] Rate: 75 P: -1 AK: 188 QRS: -10 QRSD: 78 T: -12 QT: 402 QTc: 448 Interpretive Statements Normal sinus rhythm Normal ECG No previous ECG available for comparison Electronically Signed On 11-01-2019 15:18:57 EDT by Cruz Hidalgo MD [email or web address] Agusto Aquino MD CARDIAC ECG ORDERABL ES [facility] [address] [place] [address] documented in this encounter Visit Diagnoses Not on filedocumented in this encounter Additional Health Concerns Infection Onset Date Last Indicated Resolved Time R/O COVID-19 09/29/2023 09/29/2023 09/29/2023 13:1 8 EDT documented as of this encounter Care Teams Mascara Molder Relationship Specialty Start Date End Date Rico Aburto MD [address] [place] [address] PCP - General 11/01/19 09/25/21 Jacinta Black APRN [address] [place] [address] PCP - General 09/26/21 documented as of this encounter
--- OUTSIDE RECORDS SUMMARY | 2024-01-11 15:25 | XMS_ITS | Encounter Summary ---
Author Organization [facility] Address [address] [place] [address] Care Team Providers Care Restaurant Greeter Name Role Phone Jacinta Black APRN Primary Care Provider [phone] Reason for Referral * Radiology Services (Routine/Next Available) - Authorization Not Required Specialty Diagnoses / Procedures Referred By Charan benson Referred To Contact Diagnoses Encounter for screening mammogram for malignant neoplasm of breast Procedures MA BREAST SCREENING VIRAL BILATERAL Jacinta Black APRN [address] [facility] [address] [place] [address] [facility] Referral ID Status Reason Start Date Expiration Date Visits Requested Visits Authorized [id number] Authorization Not Required 12/15/2021 1 1 Reason for Visit * Radiology Services (Routine/Next Available) - Authorization Not Required Specialty Diagnoses / Procedures Referred By Charan benson Referred To Contact Diagnoses Encounter for screening mammogram for malignant neoplasm of breast Procedures MA BREAST SCREENING VIRAL BILATERAL Jacinta Black APRN [address],[facility] [address] [place] [address] [facility] Referral ID Status Reason Start Date Expiration Date Visits Requested Visits Authorized [id number] Authorization Not Required 12/15/2021 1 1 Encounter Details Date Type Department Care Team (Latest Contact Info) Description 02/10/2022 10:30 EDT - 02/10/2022 23:59 EDT Hospital Encounter [facility] [address] [place] [address] Encounter for screening mammogram for malignant neoplasm of breast Discharge Disposition: Home or Self Care Social [...] Sign Reading Time Taken Comments Blood Pressure - - Pulse - - Temperature - - Respiratory Rate - - Oxygen Saturation - - Inhaled Oxygen Concentration - - Weight - - Height 157.5 cm (5' 2) 02/10/2022 1049 EDT Body Mass Index - - documented in this encounter Functional Status Functional Status Response Date of Assess ment Are you deaf or do you have serious difficulty h earing? No 11/29/2021 documented as of this encounter Medications at Time of Discharge Medication Sig Dispensed Refills Start Date End Date diclofenac sodium gel 1 mg. 09/29/2021 ondansetron (ZOFRAN) 4 mg tablet Take 1 Tablet by mouth every 8 hours as needed. 08/18/2021 pantoprazole (PROTONIX) 40 mg tablet Take 1 Tablet by mouth daily. 09/12/2021 traMADol (ULTRAM) 50 mg tablet Take 1 Tablet by mouth every 6 hours as needed. 12/02/2021 levothyroxine (SYNTHROID) 88 mcg tablet Take 1 Tablet by mouth daily. 08/21/2021 01/04/2024 montelukast (SINGULAIR) 10 mg tablet Take 10 mg by mouth every evening. 08/18/2021 01/02/2024 documented as of this encounter Discharge Disposition Disposition Code Departure Means Destination Home or Self Care documented in this encounter Plan of Treatment Upcoming Encounters Date Type Department Care Team (Late st Contact Info) Description 02/16/2024 13:50 EDT Appointment [facility] [address] [place], [place] [address] documented as of this encounter Procedures Procedure Name Priority Date/Time Associated Diagnosis Comments MA BREAST SCREENING VIRAL BILATERAL Routine 02/10/2022 11:04 EDT Encounter for screening mammogram for malignant neoplasm of breast documented in this encounter Results * MA BREAST SCREENING VIRAL BILATERAL (02/10/2022 11:04 EDT) Anatomical Region Laterality Modality Breast Bilateral Mammography 02/11/2022 12:2 1 EDT Impressions 02/11/2022 12:21 EDT Negative, no evidence of malignancy. RECOMMENDATION: Routine screening mammography is recommended. OVERALL ASSESSMENT: BI-RADS 1: Negative These results will be communicated to your patient via a lay letter from Radiology. If any additional imaging is needed we will contact your patient directly. Narrative 02/11/2022 12:21 EDT MA BREAST SCREENING VIRAL BILATERAL ??02/10/2022 10:30 AM History: BREAST SCREENING; BREAST SCREENING Comparison: ??Comparison has been made to previous images. Technique: Routine 3D tomosynthesis with synthesized 2D views with CAD Bilateral Breast Composition: The breast tissue is almost entirely fatty. Bilateral Breast Findings: ??No significant masses, calcifications or other abnormalities are seen. Procedure Note Eric Campoverde MD - 02/11/2022 MA BREAST SCREENING VIRAL BILATERAL 02/10/2022 10:30 AM History: BREAST SCREENING; BREAST SCREENING Comparison: Comparison has been made to previous images. Technique: Routine 3D tomosynthesis with synthesized 2D views with CAD Bilateral Breast Composition: The breast tissue is almost entirely fatty. Bilateral Breast Findings: No significant masses, calcifications or otherabnormalities are seen. IMPRESSION Negative, no evidence of malignancy. RECOMMENDATION: Routine screening mammography is recommended. OVERALL ASSESSMENT: BI-RADS 1: Negative These results will be communicated to your patient via a lay letter fromRadiology. If any additional imaging is needed we will contact yourpatient directly. Jacinta Black APRN IMG MAMMOGRAPHY O RDERABLES documented in this encounter Visit Diagnoses Diagnosis Encounter for screening mammogram for malignant neoplasm of breast Other screening mammogram documented in this encounter Care Teams Restaurant Greeter Relationship Specialty Start Date End Date Jacinta Black APRN [address] [place] [address] PCP - General 09/26/21 documented as of this encounter
--- OUTSIDE RECORDS SUMMARY | 2024-01-11 15:25 | XMS_ITS | Encounter Summary ---
Author Organization [facility] Address [address] [place] [address] Care Team Providers Care Metal Burrer Name Role Phone Unavailable Primary Care Provider Unavailabl e Encounter Details Date Type Department Care Team (Late st Contact Info) Description 04/03/2005 10:22 [facility] Hospital Encounter [facility] [place] [address] [place] [address] Mookie Schmidt MD [address] [place] [address] Social History Tobacco Use Types Packs/Day Years Used Date Smoking Tobacco: Never Smokeless Tobacco: Never [facility] Utilities Answer Date Recorded In the past [...] any time in the past 12 m [facility], were you homeless or living in a senior care (including now)? No 01/03/2024 Interpersonal Safety Answer Date Record ed How often does anyone, chantell beebe family, hit, punch or physically hurt you? 01/02/2024 How often does anyone, inclu abiel family, insult, scream, curse or threaten to [...] 14:15 EDT documented as of this encounter Plan of Treatment Upcoming Encounters Date Type Department Care Team (Late st Contact Info) Description 02/16/2024 13:[place] [address] documented as of this encounter Visit Diagnoses Not on filedocumented in this encounter Additional Health Concerns Infection Onset Date Last Indicated Resolved Time R/O COVID-19 09/29/2023 09/29/2023 09/29/2023 13:1 8 EDT documented as of this encounter
--- OUTSIDE RECORDS SUMMARY | 2024-01-11 15:25 | XMS_ITS | Encounter Summary ---
Author Organization [facility] Address [address] [place] [address] Care Team Providers Care Rubber Press Operator Name Role Phone Unavailable Primary Care Provider Unavailabl e Encounter Details Date Type Department Care Team ([facility] st Contact Info) Description 04/16/2005 10:08 [facility] Hospital Encounter [facility] [place] [address] [place] [address] Suresh Bermudez MD [address] [facility] [address] [place] [address] Social History Tobacco Use Types Packs/Day Years Used Date Smoking Tobacco: Never Smokeless Tobacco: Never [facility] Utilities Answer Date Recorded In the past 12 months has e electric, gas, oil, or water company [...] were you homeless or living in a assisted (including now)? No 01/03/2024 Interpersonal Safety Answer Date Record ed How often does anyone, chantell beebe family, hit, punch or physically hurt you? 01/02/2024 How often does anyone, omarjewel abiel family, insult, scream, curse or threaten [...] Contact Info) Description 02/16/2024 13:50 [place] [address] documented as of this encounter Visit Diagnoses Not on filedocumented in this encounter Additional Health Concerns Infection Onset Date Last Indicated Resolved Time R/O COVID-19 09/29/2023 09/29/2023 09/29/2023 13:1 8 EDT documented as of this encounter
--- OUTSIDE RECORDS SUMMARY | 2024-01-11 15:25 | XMS_ITS | Encounter Summary ---
Author Organization [facility] Address [address] [place] [address] Care Team Providers Care Trial Court Judge Name Role Phone Unavailable Primary Care Provider Unavailabl e Encounter Details Date Type Department Care Team (Late st Contact Info) Description 10/06/2005 Before PRISM Converted Visit ([facility]) [facility] [address] [place] [address] Puma Lynn MD [address] [id number] Social History Tobacco Use Types Packs/Day Years Used Date Smoking Tobacco: Never Assessed Sex and Gender Information Value Date Recorded Sex Assigned at Not on file Gender Identity Female 09/26/2021 10:51 EDT Sexual Orientation Not on file documented as of this encounter Progress Notes * Puma Lynn MD - 05/10/2009 0723 EST DIVISION OF O[facility]THALMOLOGY [facility] October 06, 2005 Mookie Schmidt MD FA-ophthalmology [address] [place] [address] Schmidt, I had the pleasure of seeing Amalia Moreira, who, as you know, is a 54-year-old woman s/p bilateral upper lid blepharoplasty for visual obstruction in March of 2005. Today, the patient reports significant improvement in her superior visual field, but is unhappy with her postsurgical appearance. Shestates that her right upper lid still has too much skin, and the left upper lid has an extra crease. She reports no other visualcomplaints. On examination, distance visual acuities are 20/100 on the right and 20/20 on the left with her monovision contact lenses. There was no afferent pupillary defect, extraocular motility was full and ntraocular tensions were within normal limitsby palpation. Examination of the eyebrow revealed 2+ browptosis on both sides. The Endotine transblepharoplasty implants were palpable at the lateral orbital rim. Examination of the upper eyelids revealed approximately 20mm of skin between the lid marginand the inferior brow hairs. Examination of the right upper lid revealed a mild temporal skin fold dueto lateral brow ptosis. Examination of the left upper lid revealed a thin, visible scar medially, slight skin redundancy in the central aspect of the lid due to the brow ptosis as well as a slightly hollow superior sulcus. Upon lifting the brows, the patient appeared to achieve a much greater degree of symmetry and stated that she would be happy with this type of appearance. Lower lid tone and position appeared to be good on both sides. Margin reflex distances were approximately 3.5 mm on both sides, and there was no evidence of lagophthalmos. In sum, Ms. Moreira is s/p bilateral upper lid blepharoplasty/levator resection and transblepharoplasty brow lift. She appears to have attained a excellent functional result, but is unhappy with her brow position which is causing some redundant skin folds bilaterally.I have offered her the option of having an endoscopic brow lift to attain a more symmetric appearance. The patient declined this option, stating that she is unwilling to pay for a cosmetic procedure at this time. Thank you very much for allowing me to participate in the care of this patient. If you have any questions of concerns, please don't hesitate to contact me, Sincerely, Puma Lynn M.D. Ophthalmology Oculoplastic, Eyelid and Orbital Surgery Signed by Puma Lynn MD 10/07/2005 12:28 Az Simon MD Puma Lynn MD - Puma Lynn MD A - GLT Job ID: [id number] Document ID: [id number] cc: DILLAN Long MD documented in this encounter Plan of Treatment Upcoming Encounters Date Type Department Care Team (Late st Contact Info) Description 02/16/2024 13:50 EDT Appointment [facility] Mammography [address] [place] [id number] documented as of this encounter Visit Diagnoses Not on filedocumented in this encounter
--- OUTSIDE RECORDS SUMMARY | 2024-01-11 15:25 | XMS_ITS | Encounter Summary ---
Author Organization [facility] Address [address] [place] [address] Care Team Providers Care Energy Sales Consultant Name Role Phone Unavailable Primary Care Provider Unavailabl e Encounter Details Date Type Department Care Team (Latest Contact Info) Description 10/06/2005 14:56 EDT Hospital Encounter [facility] [address] [place] [address] Puma Lynn MD [address] [address] Discharge Disposition: Auto Discharge Social History Tobacco [...] Info) Description 02/16/2024 13:[address] [facility] [address] [place] [address] documented as of this encounter Visit Diagnoses Not on filedocumented in this encounter
--- OUTSIDE RECORDS SUMMARY | 2024-01-11 15:25 | XMS_ITS | Encounter Summary ---
Author Organization [facility] Address [address] [place] [address] Care Team Providers Care Finisher Accordion Name Role Phone Jacinta Black APRN Primary Care Provider [phone] Reason for Referral * Radiology Services (Routine/Next Available) - Authorization Not Required Specialty Diagnoses / Procedures Referred By Charan benson Referred To Contact Diagnoses Encounter for screening mammogram for malignant neoplasm of breast Procedures MA BREAST SCREENING VIRAL BILATERAL Jacinta Black APRN 26 [facility] [address] [place] [address] [facility] Referral ID Status Reason Start Date Expiration Date Visits Requested Visits Authorized [id number] Authorization Not Required 12/02/2022 1 1 Reason for Visit * Radiology Services (Routine/Next Available) - Authorization Not Required Specialty Diagnoses / Procedures Referred By Charan benson Referred To Contact Diagnoses Encounter for screening mammogram for malignant neoplasm of breast Procedures MA BREAST SCREENING VIRAL BILATERAL Jacinta Black APRN 26 [facility] [address] [place] [address] [facility] Referral ID Status Reason Start Date Expiration Date Visits Requested Visits Authorized [id number] Authorization Not Required 12/02/2022 1 1 Encounter Details Date Type Department Care Team (Latest Contact Info) Description 02/12/2023 11:06 EDT - 02/12/2023 23:[address] [facility] [address] [place] [address] Encounter for screening mammogram for malignant neoplasm [...] on file documented as of this encounter Functional Status Functional Status Response Date of Assess ment Are you deaf or do you have serious difficulty h earing? No 11/29/2021 documented as of this encounter Medications at Time of Discharge Medication Sig Dispensed Refills Start Date End Date diclofenac sodium gel 1 mg. 09/29/2021 fluticasone propion-salmeteroL (ADVAIR) 250-50 mcg/dose diskus inhaler Inhale 1 Puff as directed every 12 hours. furosemide (LASIX) 20 mg tablet daily. 12/11/2022 ondansetron (ZOFRAN) 4 mg tablet Take 1 Tablet by mouth every 8 hours as needed. 08/18/2021 pantoprazole (PROTONIX) 40 mg tablet Take 1 Tablet by mouth daily. 09/12/2021 rifAXIMin (XIFAXAN) 550 mg tablet Take 1 Tablet by mouth 2 times daily. 02/25/2022 torsemide (DEMADEX) 10 mg tablet Take 1 Tablet by mouth as needed. traMADol (ULTRAM) 50 mg tablet Take 1 Tablet by mouth every 6 hours as needed. 12/02/2021 levothyroxine (SYNTHROID) 88 mcg tablet Take 1 Tablet by mouth daily. 08/21/2021 01/04/2024 loratadine (CLARITIN) 10 mg tablet Take 10 mg by mouth daily. 05/04/2022 01/02/2024 losartan (COZAAR) 25 mg tablet Take 1 Tablet by mouth daily. 09/01/2022 01/04/2024 montelukast (SINGULAIR) 10 mg tablet Take 10 mg by mouth daily. 04/08/2022 01/02/2024 montelukast (SINGULAIR) 10 mg tablet Take 10 mg by mouth every evening. 08/18/2021 01/02/2024 documented as of this encounter Discharge Disposition Disposition Code Departure Means Destination Home or Self Care documented in this encounter Plan of Treatment Upcoming Encounters Date Type Department Care Team (Late st Contact Info) Description 02/16/2024 13:[address] [facility] [address] [place] [address] documented as of this encounter Procedures Procedure Name Priority Date/Time Associated Diagnosis Comments MA BREAST SCREENING VIRAL BILATERAL Routine 02/12/2023 11:55 EDT Encounter for screening mammogram for malignant neoplasm of breast documented in this encounter Results * MA BREAST SCREENING VIRAL BILATERAL (02/12/2023 11:55 EDT) Anatomical Region Laterality Modality Breast Bilateral Mammography 02/12/2023 15:3 5 EDT Impressions 02/12/2023 15:35 EDT Negative, no evidence of malignancy. RECOMMENDATION: Routine screening mammography is recommended. OVERALL ASSESSMENT: BI-RADS 1: Negative These results will be communicated to your patient via a lay letter from Radiology. If any additional imaging is needed we will contact your patient directly. [id number] Narrative 02/12/2023 15:35 EDT MA BREAST SCREENING VIRAL BILATERAL ??02/12/2023 11:10 AM History: Encounter for screening mammogram for malignant neoplasm of breast;Z12.31:Encounter for screening mammogram for malignant neoplasm of breast Comparison: ??Comparison has been made to previous images . ? Technique: Routine 3D tomosynthesis with synthesized 2D views with CAD Breast Composition: There are scattered areas of fibroglandular density. Bilateral Breast Findings: ??No significant masses, calcifications or other abnormalities are seen. Procedure Note Sanjay Parra MD - 02/12/2023 MA BREAST SCREENING VIRAL BILATERAL 02/12/2023 11:10 AM History: Encounter for screening mammogram for malignant neoplasm ofbreast;Z12.31:Encounter for screening mammogram for malignant neoplasm ofbreast Comparison: Comparison has been made to previous images . Technique: Routine 3D tomosynthesis with synthesized 2D views with CAD Breast Composition: There are scattered areas of fibroglandular density. Bilateral Breast Findings: No significant masses, calcifications or otherabnormalities are seen. IMPRESSION Negative, no evidence of malignancy. RECOMMENDATION: Routine screening mammography is recommended. OVERALL ASSESSMENT: BI-RADS 1: Negative These results will be communicated to your patient via a lay letter fromRadiology. If any additional imaging is needed we will contact yourpatient directly. [id number] Jacinta Black APRN IMG MAMMOGRAPHY O RDERABLES documented in this encounter Visit Diagnoses Diagnosis Encounter for screening mammogram for malignant neoplasm of breast Other screening mammogram documented in this encounter Care Teams Finisher Accordion Relationship Specialty Start Date End Date Jacinta Black APRN [address] [address] PCP - General 09/26/21 documented as of this encounter
--- OUTSIDE RECORDS SUMMARY | 2024-01-11 15:25 | XMS_ITS | Encounter Summary ---
Author Organization [facility] Address [address] [place] [address] Care Team Providers Care Iuss Acoustic Analyst Name Role Phone Jacinta Black APRN Primary Care Provider [phone] Reason for Referral * Radiology Services (Routine/Next Available) - Authorization Not Required Specialty Diagnoses / Procedures Referred By Charan benson Referred To Contact Diagnoses Unspecified abdominal pain Intra-abdominal and pelvic swelling, mass and lump, unspecified site Noninflammatory disorder of ovary, fallopian tube and broad ligament, unspecified Procedures CT ABDOMEN PELVIS W CONTRAST CT ABDOMEN PELVIS W WO CONTRAST Jacinta Black APRN [address] [facility] [address] [place] [address] [facility] Referral ID Status Reason Start Date Expiration Date Visits Requested Visits Authorized [id number] Authorization Not Required 09/12/2021 1 1 Reason for Visit * Radiology Services (Routine/Next Available) - Authorization Not Required Specialty Diagnoses / Procedures Referred By Charan benson Referred To Contact Diagnoses Unspecified abdominal pain Intra-abdominal and pelvic swelling, mass and lump, unspecified site Noninflammatory disorder of ovary, fallopian tube and broad ligament, unspecified Procedures CT ABDOMEN PELVIS W CONTRAST CT ABDOMEN PELVIS W WO CONTRAST Jacinta Black APRN [address] [facility] [address] [place] [address] [facility] Referral ID Status Reason Start Date Expiration Date Visits Requested Visits Authorized [id number] Authorization Not Required 09/12/2021 1 1 Encounter Details Date Type Department Care Team (Latest Contact Info) Description 09/26/2021 10:52 EDT - 09/26/2021 23:59 EDT Hospital Encounter [facility] CT Scan [address] [place] [address] Unspecified abdominal pain; Intra-abdominal and pelvic swelling, mass and lump, unspecified site; Noninflammatory disorder of ovary, fallopian tube and broad ligament, unspecified Discharge Disposition: Home or Self Care Social [...] on file documented as of this encounter Medications at Time of Discharge Medication Sig Dispensed Refills Start Date End Date ondansetron (ZOFRAN) 4 mg tablet Take 1 Tablet by mouth every 8 hours as needed. 08/18/2021 pantoprazole (PROTONIX) 40 mg tablet Take 1 Tablet by mouth daily. 09/12/2021 levothyroxine (SYNTHROID) 88 mcg tablet Take 1 [...] Contact Info) Description 02/16/2024 13:50 EDT Appointment [facility] Mammography [address] [place] [address] documented as of this encounter Procedures Procedure Name Priority Date/Time Associated Diagnosis Comments CT ABDOMEN PELVIS W CONTRAST Routine 09/26/2021 11:33 EDT Unspecified abdominal pain Intra-abdominal and pelvic swelling, mass and lump, unspecified site Noninflammatory disorder of ovary, fallopian tube and broad ligament, unspecified documented in this encounter Results * CT ABDOMEN PELVIS W CONTRAST (09/26/2021 11:33 EDT) Anatomical Region Laterality Modality Body, Abdomen, Pelvis, Abdomen and Pelvis Computed Tomography 09/26/2021 15:5 3 EDT Impressions 09/26/2021 15:53 EDT 1. Unchanged 5.5 cm left adnexal cystic lesion. 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 3. Colonic diverticulosis. 4. Trace ascites. 5. Unchanged 2.3 cm water density lesion along the inferior margin of the right hemidiaphragm. 6. Degenerative spondylosis. Bilateral L4 pars interarticularis defects. 7. L1 compression deformity with tenderness 20% anterior height loss, new since 2019. Narrative 09/26/2021 15:[address] ABDOMEN PELVIS W CONTRAST ??09/26/2021 11:00 AM Signs and Symptoms/Comments: ?? Abdominal Pain, Abdominal Mass, Ovarian Mass Technique: CT of the abdomen and pelvis was performed following the administration intravenous contrast; coronal and sagittal multiplanar reconstructions generated. Comparison: CT abdomen pelvis 11/30/2019 and 11/01/2019 FINDINGS: Lower chest: Lung bases clear. Hepatobiliary: Mild hepatic steatosis. Status post cholecystectomy. Mild biliary ductal dilatation. Cavernous transformation of the portal vein, unchanged compared to prior. Spleen, pancreas, adrenal glands: Fatty infiltration of the pancreas. Kidneys, ureters, bladder: Small left renal cyst. No hydronephrosis. Ureters normal in caliber. Reproductive: Uterus absent. Unchanged 5.5 x 3.9 cm left adnexal cystic lesion. Bowel: No bowel obstruction or focal bowel wall thickening. Prior right hemicolectomy with ileocolic anastomosis. Colonic diverticulosis without evidence of acute diverticulitis. Peritoneal cavity / Subperitoneal space: Trace ascites in the deep pelvis. No free air. 3.3 x 1.8 cm low-density mass along the inferior margin of the right hemidiaphragm. Lymphovascular: Cavernous transformation of the portal vein, unchanged. Multiple lower paraesophageal varices. Atherosclerosis. No lymphadenopathy. Abdominal wall: Intact. Musculoskeletal: Degenerative spondylosis. Bilateral L4 pars interarticularis defects with grade 1/2 anterolisthesis. 10-20% anterior height loss at T11, new since 2019. Procedure Note Sanjay Parra MD - 09/26/2021 CT ABDOMEN PELVIS W CONTRAST 09/26/2021 11:00 AM Signs and Symptoms/Comments: Abdominal Pain, Abdominal Mass, Ovarian Mass Technique: CT of the abdomen and pelvis was performed following theadministration intravenous contrast; coronal and sagittal multiplanarreconstructions generated. Comparison: CT abdomen pelvis 11/30/2019 and 11/01/2019 FINDINGS: Lower chest: Lung bases clear. Hepatobiliary: Mild hepatic steatosis. Status post cholecystectomy. Mildbiliary ductal dilatation. Cavernous transformation of the portal vein,unchanged compared to prior. Spleen, pancreas, adrenal glands: Fatty infiltration of the pancreas. Kidneys, ureters, bladder: Small left renal cyst. No hydronephrosis.Ureters normal in caliber. Reproductive: Uterus absent. Unchanged 5.5 x 3.9 cm left adnexal cysticlesion. Bowel: No bowel obstruction or focal bowel wall thickening. Prior righthemicolectomy with ileocolic anastomosis. Colonic diverticulosis withoutevidence of acute diverticulitis. Peritoneal cavity / Subperitoneal space: Trace ascites in the deep pelvis.No free air. 3.3 x 1.8 cm low-density mass along the inferior margin ofthe right hemidiaphragm. Lymphovascular: Cavernous transformation of the portal vein, unchanged.Multiple lower paraesophageal varices. Atherosclerosis. Nolymphadenopathy. Abdominal wall: Intact. Musculoskeletal: Degenerative spondylosis. Bilateral L4 parsinterarticularis defects with grade 1/2 anterolisthesis. 10-20% anteriorheight loss at T11, new since 2019. IMPRESSION 1. Unchanged 5.5 cm left adnexal cystic lesion. 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 Multiple lowerparaesophageal varices. 3. Colonic diverticulosis. 4. Trace ascites. 5. Unchanged 2.3 cm water density lesion along the inferior margin of theright hemidiaphragm. 6. Degenerative spondylosis. Bilateral L4 pars interarticularis defects. 7. L1 compression deformity with tenderness 20% anterior height loss, newsince 2019. Jacinta H Wayne AIRPORT ATTENDANT IMG CT ORDERABLES documented in this encounter Visit Diagnoses Diagnosis Unspecified abdominal pain Intra-abdominal and pelvic swelling, mass and lump, unspecified site Noninflammatory disorder of ovary, fallopian tube and broad ligament, unspecified documented in this encounter Administered Medications Inactive Administered Medications - up to 3 most recent administrations Medication Order MAR Action Action Date Dose Rate Site iohexoL (OMNIPAQUE 350) solution 100 mL 100 mL, intravenous, Once in imaging, 1 dose, Starting on Wed09/26/21 at 1101, Until Wed09/26/21 at 1133, Routine, Imaging Protocol Orders Given 09/26/2021 11:33 EDT 100 mL documented in this encounter Orders Medications Ordered That Justin ht Not Have Been Administered Count Last Ordered Date First Ordered Date iohexoL (OMNIPAQUE 350) solution 100 mL 1 0 09/26/2021 documented in this encounter Care Teams Iuss Acoustic Analyst Relationship Specialty Start Date End Date Jacinta Black [facility]N 26 [facility] [address] [place] [address] PCP - General 09/26/21 documented as of this encounter
--- OUTSIDE RECORDS SUMMARY | 2024-01-11 15:25 | XMS_ITS | Encounter Summary ---
Author Organization [facility] Address [address] [place] [address] Care Team Providers Care Ledger Clerk Name Role Phone Rico Aburto MD Primary Care Provider [phone] Jacinta Black APRN Primary Care Provider [phone] Encounter Details Date Type Department Care Team (Late st Contact Info) Description 02/04/2021 Results Only Imaging [facility] Radiology Results [address] [place] [address] Rico Aburto MD [address] [place] [address] Social History Tobacco Use Types Packs/Day [...] Contact Info) Description 02/16/2024 13:50 EDT Appointment [facility] Mammography [address] [place], [place] [address] documented as of this encounter Procedures Procedure Name Priority Date/Time Associated Diagnosis Comments DXA BONE DENSITY 02/04/2021 15:3 2 EDT documented in this encounter Results * XR DEXA BONE DENSITY (02/04/2021 15:32 EDT) Anatomical Region Laterality Modality Other 02/04/2021 9:49 EDT Narrative 02/04/2021 15:32 EDT ? EXAM: RADIOLOGY/DEXA/BONE DENSITY-AXIAL ?? EX. D/ (49) ? CLINICAL INFORMATION: ? M85.88 OTHER DISORDER OF BONE DENSITY ? AND STRUCTURE ? See attached report. ??Report also available in PACS and [facility] for ? ordering [facility] Network Providers. ? REM:dnl ?Reported By: Sanjay Parra MD ? CC: ? Transcribed Date/Time: 02/04/2021 (1532) ? Shredded Filler Hopper Feeder: [email or web address] ? Printed Date/Time: 02/04/2021 (1532) ? PAGE 1 ? Signed Report ? Procedure Note Sanjay Parra MD - 02/04/2021 EXAM: RADIOLOGY/DEXA/BONE DENSITY-AXIAL EX. D/ (49) CLINICAL INFORMATION: M85.88 OTHER DISORDER OF BONE DENSITY AND STRUCTURE See attached report. Report also available in PACS and [facility] for ordering [facility] Health Network Providers. REM:dnl Reported By: Sanjay Parra MD CC: Transcribed Date/Time: 02/04/2021 (153) Shredded Filler Hopper Feeder: RAMONE Printed Date/Time: 02/04/2021 (153) PAGE 1 Signed Report Rico Aburto MD IMG DEXA ORDERABLES documented in this encounter Visit Diagnoses Not on filedocumented in this encounter Additional Health Concerns Infection Onset Date Last Indicated Resolved Time R/O COVID-19 09/29/2023 09/29/2023 09/29/2023 13:1 8 EDT documented as of this encounter Care Teams Ledger Clerk Relationship Specialty Start Date End Date Rico Aburto MD [address] [place] [address] PCP - General 11/01/19 09/25/21 Jacinta Black APRN [address] [place] [address] PCP - General 09/26/21 documented as of this encounter
--- OUTSIDE RECORDS SUMMARY | 2024-01-11 15:25 | XMS_ITS | Encounter Summary ---
Author Organization [facility] Address [address] [place] [address] Care Team Providers Care Turkey Cleaner Name Role Phone Ilana Nowak DILLAN Primary Care Provider [phone] Encounter Details Date Type Department Care Team (Late st Contact Info) Description 12/22/2017 Historical Results Only [facility] Radiology Results [address] [place] [address] Rico Aburto MD [address] [place], [place] [address] Social History Tobacco Use Types Packs/Day Years Used Date Smoking Tobacco: Never Assessed Sex and Gender Information Value Date Recorded Sex Assigned at Not on file Gender Identity Female 09/26/2021 10:51 EDT Sexual Orientation Not on file documented as of this encounter Plan of Treatment Upcoming Encounters Date Type Department Care Team (Late st Contact Info) Description 02/16/2024 13:50 EDT Appointment [facility] Mammography [address] [place] [address] documented as of this encounter Procedures Procedure Name Priority Date/Time Associated Diagnosis Comments MA BREAST SCREENING VIRAL BILATERAL 12/22/2017 12:25 EDT documented in this encounter Results * MA BREAST SCREENING VIRAL BILATERAL (12/22/2017 12:25 EDT) Anatomical Region Laterality Modality Breast Bilateral Other 12/22/2017 12:2 5 EDT Narrative 12/22/2017 12:25 EDT ? EXAM: MAMMOGRAM/MAMMO BILATERAL SCREEN W ??EX. D/ (1875) ? CLINICAL INFORMATION: ? Z12.31 SCREENING ? INDICATION: Z12.31 SCREENING ??SCREENING ??10/22/16 IMAGES IN FROM [facility] ? PER DINO ? TECHNIQUE: ??Full field digital whole breast 2D (C-view) and 3D CC and ? MLO views of both breasts were obtained. CAD technology was utilized. ? FINDINGS: ??The fibroglandular patterns of the breasts are normal. ? There has been no change when compared to previous mammograms and ? there is no mammographic evidence of cancer. The breast tissue is of ? fatty density. ? FINAL ASSESSMENT BILATERAL BREAST: ??BI-RADS Category 1 - Negative. ? Routine mammographic follow-up is recommended. ? These results will be communicated to your patient via a lay letter ? from Radiology. ??If any additional imaging is needed we will contact ? your patient directly. ? REPORT SIGNED IN OTHER VENDOR SYSTEM 12/22/2017 ?Reported By: Sanjay Parra MD ? CC: ? Transcribed Date/Time: 12/22/2017 (1225) ? Warp Starter: ? Printed Date/Time: 11/05/2018 (0914) ? PAGE 1 ? Signed Report ? Procedure Note Sanjay Parra MD - 03/23/2019 EXAM: MAMMOGRAM/MAMMO BILATERAL SCREEN W EX. D/ (9916) CLINICAL INFORMATION: Z12.31 SCREENING INDICATION: Z12.31 SCREENING SCREENING 10/22/16 IMAGES IN FROM [facility] PER DINO TECHNIQUE: Full field digital whole breast 2D (C-view) and 3D CCand MLO views of both breasts were obtained. CAD technology wasutilized. FINDINGS: The fibroglandular patterns of the breasts are normal. There has been no change when compared to previous mammograms and there is no mammographic evidence of cancer. The breast tissue isof fatty density. FINAL ASSESSMENT BILATERAL BREAST: BI-RADS Category 1 - Negative. Routine mammographic follow-up is recommended. These results will be communicated to your patient via a lay letter from Radiology. If any additional imaging is needed we willcontact your patient directly. REPORT SIGNED IN OTHER VENDOR SYSTEM 12/22/2017 Reported By: Sanjay Parra MD CC: Transcribed Date/Time: 12/22/2017 (1225) Warp Starter: Printed Date/Time: 11/05/2018 (6858) PAGE 1 Signed Report Rico Aburto MD IMG MAMMOGRAPHY RAUL STERN documented in this encounter Visit Diagnoses Not on filedocumented in this encounter Care Teams Turkey Cleaner Relationship Specialty Start Date End Date Ilana Nowak FNP [address] [place] [address] PCP - General 03/31/11 10/31/19 documented as of this encounter
--- OUTSIDE RECORDS SUMMARY | 2024-01-11 15:25 | XMS_ITS | Encounter Summary ---
Author Organization [facility] Address [address] [place] [address] Care Team Providers Care Product Development Name Role Phone Rico Aburto MD Primary Care Provider [phone] Encounter Details Date Type Department Care Team (Late st Contact Info) Description 11/01/2019 Results Only [facility] - [place] [address] [place], [place] [id number] Agusto Aquino MD Social History Tobacco Use [...] Contact Info) Description 02/16/2024 13:50 EDT Appointment [facility] Mammography [address] [place], [place] [id number] documented as of this encounter Procedures Procedure Name Priority Date/Time Associated Diagnosis Comments BACTERIAL CULTURE, URINE Routine 11/01/2019 16:35 EDT URINALYSIS/COMPLETE - [facility] Routine 11/01/2019 16:10 EDT LIPASE - [facility] Routine 11/01/2019 15:05 EDT COMPLETE BLOOD COUNT WITH DIFFERENTIAL (AUTO) Routine 11/01/2019 15:05 EDT TROPONIN I Routine 11/01/2019 15:05 EDT MAGNESIUM Routine 11/01/2019 15:05 EDT COMPREHENSIVE METABOLIC PANEL (CMP) Routine 11/01/2019 15:05 EDT documented in this encounter Results * BACTERIAL CULTURE, URINE (11/01/2019 16:35 EDT) Pathologist [facility] USUAL UROGENITAL CARY - [facility] UUV 11/03/2019 11:54 EDT [facility] COLONY COUNT <10,000 CFU/ML 11/03/2019 11:54 EDT [facility] Urine specimen (specimen) 11/01/2019 16:35 EDT 11/01/2019 16:35 EDT Comment:VOID Agusto Aquino MD MICROBIOLOGY - GENER AL ORDERABLES Performing Organization Address City/State/[facility] Co de Phone Number [facility] [address] [place] [address] * URINALYSIS/COMPLETE - [facility] (11/01/2019 16:10 EDT) Pathologist [facility] URINE APPEARANCE - [facility] Clear CLEAR 11/01/2019 16:14 EDT [facility] URINE BACTERIA - [facility] NEG 11/01/2019 16:34 EDT [facility] URINE BILIRUBIN - DIPSTICK - [facility] Negative NEGATIVE 11/01/2019 16:14 EDT [facility] URINE BLOOD - [facility] Negative NEG 11/01/2019 16:14 EDT [facility] URINE COLOR - [facility] Yellow YELLOW 11/01/2019 16:14 EDT [facility] URINE GLUCOSE - [place] - [facility] Negative NEGATIVE 11/01/2019 16:14 EDT [facility] URINE KETONE - [facility] Negative NEGATIVE 11/01/2019 16:14 EDT [facility] URINE LEUK ESTERASE - [facility] 1+ NEG 11/01/2019 16:14 EDT [facility] URINE NITRITE - [place] - [facility] Negative NEG 11/01/2019 16:14 EDT [facility] URINE PH - [facility] 6.5 4.0 - 8.0 0 16:14 EDT [facility] URINE PROTEIN - [place] - [facility] Negative NEG 11/01/2019 16:14 [facility] URINE RBC - [facility] NEG rbc/hpf 11/01[facility]19 [facility]? - [facility] Culture Ordered 11/01/2019 16:34 EDT [facility] URINE SPECIFIC GRAVITY - [facility] 1.010 1.001 - 1.035 11/01/2019 16:14 EDT [facility] URINE SQUAMOUS CELLS - [facility] RARE NEG #/hpf 11/01/2019 16:34 [facility] URINE UROBILINOGEN - [place] - [facility] 0.2 0.2 - 1.0 11/01/2019 16:14 [facility] URINE WBC - [facility] RARE NEG wbc/hpf 020 16:34 EDT [facility] 11/01/2019 16:1 0 EDT 11/01/2019 16:10 EDT Agusto Aquino MD CHEMISTRY & BLOOD GA S ORDERABLES [facility] [address] [place] [address] * TROPONIN I (11/01/2019 15:05 EDT) Troponin I (ng/mL) <0.034 0.000 - 0.034 ng/mL 11/01/2019 15:47 EDT [facility] Comment: Interpretation comments: ??Cutoff for a positive troponin result is set at the 99th percentile of the upper reference limit. ??Elevated troponin must always be interpreted in the context of the clinical presentation. ?Serial troponin testing 3-6 hr from baseline is favored over relying on a single troponin level. ?? The results of this assay can be falsely lowered due to the consumption of Biotin. 11/01/2019 15:0 5 EDT 11/01/2019 15:19 EDT Agusto Aquino MD CHEMISTRY & BLOOD GA S ORDERABLES Performing Organization Address [facility]/ZIP Co de Phone Number [facility] [address] [place] [address] * MAGNESIUM (11/01/2019 15:05 EDT) Magnesium 1.70 1.7 - 2.8 mg/dL 11/01/2019 15:39 EDT [facility] 11/01/2019 15:0 5 EDT 11/01/2019 15:19 EDT Agusto Aquino MD CHEMISTRY & BLOOD GA S ORDERABLES Performing Organization Address [facility] Co wa Phone Number [facility] [address] [place] [address] * LIPASE - [facility] (11/01/2019 15:05 EDT) LIPASE SERPL-CCNC - [facility] 85 <251 U/L 11/01/2019 15:39 EDT [facility] 11/01/2019 15:0 5 EDT 11/01/2019 15:19 EDT Agusto Aquino MD CHEMISTRY & BLOOD GA S ORDERABLES Performing Organization Address [facility] Co de [facility] Number [facility] [address] [place] [address] * (ABNORMAL) COMPREHENSIVE METABOLIC PANEL (CMP) (11/01/2019 15:05 EDT) Albumin % 3.9 3.4 - 4.9 g/dL 11/01/2019 15:39 EDT [facility] ALKALINE PHOSPHATASE - [facility] 92 38 - 126 U/L 11/01/2019 15:39 EDT [facility] BILIRUBIN TOTAL 1.0 0.2 - 1.3 mg/dL 11/01/2019 15:39 EDT [facility] BUN - [facility] 14 10 - 26 mg/dL 11/01/2019 15:39 EDT [facility] CALCIUM - [facility] 9.6 8.5 - 10.5 mg/dL 11/01/2019 15:39 [facility] Chloride 104 96 - 110 mmol/L 11/01/2019 15:39 [facility] CO2 Total 24 22 - 32 mEq/L 11/01/2019 15:39 [facility] CREATININE 0.47(L) 0.52 - 1.04 mg/dL 11/01/2019 15:39 [facility] eGFR >60 11/01/2019 15:39 [facility] Comment: Chronic renal impairment is defined as GFR <60 Multiply result by 1.210 for patients. eGFR calculated using the IDMS-traceable MDRD Study Equation. ??(effective 03/19/2014) Anion Gap 9 0 - 18 11/01/2019 15:39 [facility] GLUCOSE - [facility] 82 70 - 100 mg/dL 11/01/2019 15:39 [facility] Potassium 4.0 3.5 - 5.0 mEq/L 11/01/2019 15:39 [facility] Sodium 137 136 - 145 mEq/L 11/01/2019 15:39 [facility] TOTAL PROTEIN - [facility] 6.7 6.2 - 8.2 gm/dL 11/01/2019 15:39 [facility] SGOT/AST - [facility] 42(H) 14 - 36 U/L 11/01/2019 15:39 [facility] SGPT/ALT - [facility] 26 0 - 35 U/L 0 15:39 [facility] 11/01/2019 15:0 5 EDT 11/01/2019 15:19 EDT Agusto Aquino MD CHEMISTRY & BLOOD GA S ORDERABLES [facility] [address] [place] [address] * (ABNORMAL) COMPLETE BLOOD COUNT WITH DIFFERENTIAL (AUTO) (11/01/2019 15:05 EDT) Gran # 2.3 2.2 - 8.85 10e3/uL 11/01/2019 15:23 [facility] BASO # - [facility] 0.04 0.01 - 0.11 10e/uL 11/01/2019 15:23 [facility] BASO % - [facility] 1 0 - 2 % 11/01/2019 15:23 [facility] EOS # - [facility] 0.10 0.03 - 0.61 10e3/ul 11/01/2019 15:23 [facility] EOS % - [facility] 2 0 - 5 % 11/01/2019 15:23 [facility] GRAN % - [facility] 56.0 40 - 80 % 11/01/2019 15:23 [facility] HEMATOCRIT - [facility] 40.4 34.9 - 44.4 % 11/01/2019 15:23 [facility] HEMOGLOBIN - [facility] 13.8 11.6 - 15.2 g/dl 11/01/2019 15:23 [facility] IG# - [facility] 0.01 0 - 0.7 10e3/uL 11/01/2019 15:23 [facility] IG% - [facility] 0.2 0 - 0.9 % 11/01/2019 15:23 [facility] LYMPH # - [facility] 1.0(L) 1.09 - 3.3 10e3/ul 11/01/2019 15:23 [facility] LYMPH% - [facility] 24.3 20 - 40 % 11/01/2019 15:23 [facility] MEAN CORPUSCULAR HGB - [facility] 32.8 26.7 - 33.3 pg 11/01/2019 15:23 [facility] MEAN CORPUSCULAR HGB CONC - [facility] 34.2 32.1 - 35.9 g/dL 11/01/2019 15:23 [facility] MEAN CELL VOLUME - [facility] 96.0 81 - 98 fl 11/01/2019 15:23 [facility] MONO # - [facility] 0.7 0.1 - 0.8 10e3/uL 11/01/2019 15:23 [facility] MONO% - [facility] 16.1(H) 0 - 12 % 11/01/2019 15:23 EDT [facility] PLATELET COUNT 153 141 - 377 10e3/ul [facility]2019 [facility]LO[facility] - [facility] 4.21 3.86 - 5.04 10e3/ul 11/01/2019 [facility] RED CELL DISTRI WIDTH - [facility] 12.7 <14.7 % 11/01/2019 15:23 EDT [facility] WHITE BLOOD COUNT - [facility] 4.1 4.0 - 12.4 10e3/ul 11/01/2019 [facility] 11/01/2019 15:0 5 EDT 11/01/2019 15:19 EDT Agusto Aquino MD HEMATOLOGY & PF4 ORD ERABLES Performing Organization Address City/State/[facility] Co de Phone Number [facility] [address] [place] [address] documented in this encounter Visit Diagnoses Not on filedocumented in this encounter Care Teams Product Development Relationship Specialty Start Date End Date Rico Aburto MD [address] [place], [place] [phone] PCP - General 11/01/19 09/25/21 documented as of this encounter
--- OUTSIDE RECORDS SUMMARY | 2024-01-11 15:25 | XMS_ITS | Encounter Summary ---
Author Organization [facility] Address [address] [place] [address] Care Team Providers Care Club Lounge Attendant Name Role Phone Wayne Jacinta Shannan SENG Primary Care Provider [phone] Reason for Visit * Reason Onset Date Comments Results 09/30/2023 Encounter Details Date Type Department Care Team (Late st Contact Info) Description 09/30/2023 Telephone [facility] [address] [facility] [address] [place], [place] [address] [facility] [address] [place], [place] [address] Results Social History Tobacco Use Types Packs/Day Years [...] No 11/29/2021 documented as of this encounter Miscellaneous Notes * Telephone Encounter - Zohra Plasencia - 09/30/2023 0959 EDT Amalia called she is checking on lab results, I did let her know the Flu A, Flu B, RSV and covid were negative documented in this encounter Plan of Treatment Upcoming Encounters Date Type Department Care Team (Late st Contact Info) Description 02/16/2024 13:50 EDT Appointment [facility] [address] [place] [address] documented as of this encounter Visit Diagnoses Not on filedocumented in this encounter Care Teams Club Lounge Attendant Relationship Specialty Start Date End Date Jacinta Black, SENG [address] [place] [address] PCP - General 09/26/21 documented as of this encounter
--- OUTSIDE RECORDS SUMMARY | 2024-01-11 15:25 | XMS_ITS | Encounter Summary ---
Author Organization [facility] Address [address] [place] [address] Care Team Providers Care Boilermaker Fitter Name Role Phone Jacinta Black SENG Primary Care Provider [phone] Reason for Visit * Reason Onset Date Comments Aphasia 01/02/2024 Encounter Details Date Type Department Care Team (Late st Contact Info) Description 01/02/2024 Telephone [facility] [address] [place], [place] [phone] Lucero Cano MD [address] [place] [address] [address] [place] [address] Aphasia Social History Tobacco Use Types Packs/Day Years Used Date Smoking Tobacco: Never Smokeless Tobacco: Never [facility] Utilities Answer Date Recorded In the past 12 months has [employer], gas, oil, or water [employer] threatened to shut off services in your [...] were you homeless or living in a prison (including now)? No 01/03/2024 Interpersonal Safety Answer [...] encounter Miscellaneous Notes * Telephone Encounter - Lucero Cano MD - 01/02/20242022 EDT Brief vascular neurology telephone consult note Received a call from Dr. Tyler at [facility] regarding this patient. She is a 73 yo woman with history of HTN and Chronic portal vein thrombosis and prior history of hepatic encephalopathy. She was [id number] when she came back [place] and went to take a nap. When she woke up, she had appeared confused, had trouble speaking, and was saying no no no. When her suggested they go to hospital she had got agitated. Upon arrival to [facility] she was give zyprexa before neuro imaging. Her exam is reportedly notable for right lower facial weakness, aphasia, and difficulty following commands. No clear sensori-motor deficits otherwise. She has received a noncontrast head CT which shows scattered areas of hypodensity in the subcortical white matter (right frontoparietal, and left parietal). But otherwise no clear evolving hypodensity or hemorrhage. CTA head and neck without any flow-limiting stenosis or large vessel occlusion. Patient is not a candidate for acute reperfusion therapy given time from last known well time, and in absence of LVO. Recommend local admission for additional workup including an MRI, and implementation of secondary preventative measures including ASA and high intensity statin. Lcuero Cano MD Vascular Neurology Attending documented in this encounter Plan of Treatment Upcoming Encounters Date Type Department Care Team (Late st Contact Info) Description 02/16/2024 13:50 EDT Appointment [facility] [address] [place] [address] documented as of this encounter Visit Diagnoses Not on filedocumented in this encounter Care Teams Boilermaker Fitter Relationship Specialty Start Date End Date Jacinta Black APRN [address] [place] [phone] PCP - General 09/26/21 documented as of this encounter
--- OUTSIDE RECORDS SUMMARY | 2024-01-11 15:25 | XMS_ITS | Encounter Summary ---
Author Organization [facility] Address [address] [place] [address] Care Team Providers Care Project Manager Entertainment And Media Name Role Phone Jacinta Black SENG Primary Care Provider [phone] Reason for Visit * Reason Comments Abdominal Pain C/o upper abd/epigas tric pain for several months, sts episodes have been getting more severe and frequent, was on way home from [place] when stopped to use restroom and had a syncopal episode, also c/o chills and rigors Encounter Details Date Type Department Care Team (Late st Contact Info) Description 09/16/2022 16:08 EDT - 09/16/2022 19:[address] [facility] Emergency Department [address] [place] [id number] Vamsi Monroy MD [address] [place] [address] Epigastric pain (Primary Dx) Discharge Disposition: Home or Self Care Social [...] Sign Reading Time Taken Comments Blood Pressure 128/59 09/16/2022 1900 EDT Pulse 58 09/16/2022 1621 EDT Temperature 36.7 ??C (98 ??F) 09/16/2022 1621 EDT Respiratory Rate 12 09/16/2022 1900 EDT Oxygen Saturation 95% 09/16/2022 1800 EDT Inhaled Oxygen Concentration - - Weight - - Height - - Body Mass Index - - documented in this encounter Functional Status Functional Status Response Date of Assess ment Are you deaf or do you have serious difficulty h earing? No 11/29/2021 documented as of this encounter Discharge Instructions * Discharge Instructions* Vamsi Monroy MD - 09/16/2022 18:50 EDT Thank you for coming to the ED at [facility] for your medical care. Whenever we see you in the emergency department we are getting a snapshot of your medical condition. Things can change and even small changes might alter how we care for you. If your symptoms change in a way that concerns you or makes you unsure, please return for re-evaluation. We are here 24 hours a day, every day of the year, so do not hesitate to return. You were seen in the emergency department today for abdominal pain. We obtained blood work, an EKG,and a CAT scan, which thankfully did not show any obvious immediately dangerous problems. There were some subtle abnormalities which we discussed, which I recommend you discuss with your primary caredoctor and your fire protection designer. You may resume your medication as normal starting tomorrow. If you experience any new or worsening symptoms please return to the emergency department to be seen again. * Attachments The following attachments cannot be sent through Care Everywhere. * Abdominal Pain (Bulgarian) documented in this encounter Medications at Time of Discharge Medication Sig Dispensed Refills Start Date End Date diclofenac sodium gel 1 mg. 09/29/2021 fluticasone propion-salmeteroL (ADVAIR) 250-50 mcg/dose diskus inhaler Inhale 1 Puff as directed every 12 hours. ondansetron (ZOFRAN) 4 mg tablet Take 1 [...] Discharge Disposition Disposition Code Departure Means Destination Comment s Home or Self Shelter TO HOME, NO S/S OF DISTRESS. UP WITH STEADY GAIT. REPORTS FEELING BETTER. documented in this encounter ED Notes * Vamsi Monroy MD - 09/16/20224 EDT Emergency Department Visit Medical Decision Making Relevant Data as of 09/16/221949September 16, 2022 1647 The patient is a 71-year-old female with a long history of chronic abdominal pain with occasional severe flares, nonalcoholic fatty liver disease, portal vein thrombus, esophageal varices who presents to the emergency department with epigastric pain and presyncope. She arrives appearing obviously uncomfortable but in no distress, afebrile, not toxic, with normal vital signs. Her abdomen is soft. Diagnoses considered in the evaluation of this patients EPIGASTRIC ABDOMINAL PAIN include:?GERD,gastritis, gastroenteritis, peptic ulcer disease, esophageal spasm, other esophageal pathology, gallbladder disease, hepatitis, pancreatitis, hiatal hernia, and coronary artery disease. Other diagnoses that usually don't cause pain localized to the epigastric region include bowel obstruction, appendicitis (including ruptured), diverticulitis, intra-abdominal abscess, urinary tract infection, pyelonephritis, urolithiasis, diabetic ketoacidosis, medication side effect, intra-abdominal mass or tumor, ischemic bowel, mesenteric adenitis, peritonitis (ie from perforated bowel), colitis (such as Chrohn's or UC), diverticulitis, hernia (including incarcerated), constipation, irritable bowel syndrome, volvulus, urinary retention, AAA, cardiac ischemia, basilar pneumonia, shingles, (intrauterina and ectopic), ovarian cyst (intact or ruptured), ovarian torsion, PID, endometriosis, and dysmenorrhea. Given severity of symptoms we will obtain CT abdomen pelvis with contrast, basic labs, IV fluid, Zofran, Toradol, reevaluate. [NR] 1652 EKG independently reviewed by me shows sinus rhythm, rate of 59, normal axis, normal intervals, no ischemic T wave or ST segment changes [NR] 1826 Laboratory results significant for normal CBC, CMP on the very mildly deranged with a slightlyelevated glucose, slightly elevated AST, slightly low magnesium of 1.5. Troponin is negative. Bloodcultures were obtained and in process. Lactic acid is slightly elevated at 2.5, however given that the patient has chronic liver pathology I do not suspect an acutely dangerous etiology of this. I discussed these results with the patient and she expressed understanding. Her symptoms are much improved. We will treat with an additional dose of Zofran and her home dose of tramadol and observe for short period longer to ensure improvement. [NR] 1827 CT abdomen pelvis with contrast, independently reviewed by me as well as the radiologist, shows no acute obstruction, no findings of pancreatitis, no intra-abdominal abscess. No immediately acutely concerning findings. I did note the left adnexal lesion and discussed this with the patient and she will obtain further outpatient work-up for this, as she was already aware of it as well. [NR] 185 On reevaluation, patient was sleeping comfortably, no acute distress. I discussed her work-up and imaging and she expressed understanding and will follow up with her primary care doctor and her fire protection designer. I have low concern for cardiac ischemia as an etiology and do not believe serialtroponins are necessary. Her symptoms and pain are identical to her prior flares, of which she has had innumerable, and do not seem cardiac in nature. [NR] Relevant Data User Index [NR] Vamsi Monroy MD An EKG was obtained and independently interpreted. Laboratory data was reviewed. Medical Decision Making Epigastric pain: complicated acute illness or injury with systemic symptoms that poses a threat to life or bodily functions Amount and/or Complexity of Data Reviewed Independent Historian: spouse Labs: ordered. Decision-making details documented in ED Course. Radiology: ordered and independent interpretation performed. Decision-making details documented in ED Course. ECG/medicine tests: ordered and independent interpretation performed. Decision- making details documented in ED Course. Risk OTC drugs. Prescription drug management. Final diagnoses: Epigastric pain Disposition: Discharged Chief complaint: Abdominal pain HPI Amalia Moreira is a 71 y.o. female with a long history of chronic abdominal pain with intermittent flares, nonalcoholic fatty liver disease, portal vein thrombus who presents to the emergency departmentwith a flare of her chronic abdominal pain. Patient describes that since returning from [place] shefosters had increased frequency of her abdominal pain flares, approximately 2 to 4/day. These normally pass on their own, but today she had one which was particularly severe and did not improve at home. She said that she has been quite constipated lately and that this may be contributing. Today, after having a small bowel movement, which she describes is quite painful, she had severe pain, diaphoresis, and near syncope, feeling quite lightheaded. She did not lose consciousness or fall. Given the severity of her symptoms she came to the emergency department. Patient takes tramadol for her pain. Patient has been worked up by multiple specialists including [facility] gastroenterology who thus far have not been able to discern the etiology of her abdominal pain. History was provided by: Patient, Records reviewed include: None Patient's pertinent PMH, FH, SH were reviewed and edited as necessary. Nursing notes reviewed. A medical screening exam was performed. Physical Exam BP (!) 149/84 Pulse 58 Temp 36.7 ??C (98 ??F) (Oral) Resp 20 SpO2 93% Physical Exam Vitals and nursing note reviewed. Constitutional: Appearance: Normal appearance. She is not ill-appearing, toxic-appearing or diaphoretic. Comments: Uncomfortable, laying on right lateral decubitus, pressing on her own abdomen, conversantwithout difficulty HENT: Head: Normocephalic and atraumatic. Right Ear: External ear normal. Left Ear: External ear normal. Nose: Nose normal. No congestion or rhinorrhea. Mouth/Throat: Mouth: Mucous membranes are moist. Pharynx: Oropharynx is clear. No oropharyngeal exudate or posterior oropharyngeal erythema. Eyes: General: No scleral icterus. Right eye: No discharge. Left eye: No discharge. Extraocular Movements: Extraocular movements intact. Conjunctiva/sclera: Conjunctivae normal. Pupils: Pupils are equal, round, and reactive to light. Cardiovascular: Rate and Rhythm: Normal rate and regular rhythm. Pulses: Normal pulses. Heart sounds: Normal heart sounds. No murmur heard. No friction rub. No gallop. Pulmonary: Effort: Pulmonary effort is normal. No respiratory distress. Breath sounds: Normal breath sounds. No stridor. No wheezing or rhonchi. Chest: Chest wall: No tenderness. Abdominal: General: Abdomen is flat. Bowel sounds are normal. There is no distension. Palpations: Abdomen is soft. There is no mass. Tenderness: There is abdominal tenderness in the epigastric area. There is no guarding or rebound. Hernia: No hernia is present. Musculoskeletal: General: No swelling, tenderness, deformity or signs of injury. Normal range of motion. Cervical back: Normal range of motion and neck supple. No rigidity or tenderness. Right lower leg: No edema. Left lower leg: No edema. Skin: General: Skin is warm and dry. Capillary Refill: Capillary refill takes less than 2 seconds. Coloration: Skin is not jaundiced or pale. Findings: No bruising, erythema or rash. Neurological: General: No focal deficit present. Mental Status: She is alert and oriented to person, place, and time. Mental status is at baseline. Cranial Nerves: No cranial nerve deficit. Sensory: No sensory deficit. Motor: No weakness. Coordination: Coordination normal. Gait: Gait normal. Psychiatric: Mood and Affect: Mood normal. Behavior: Behavior normal. Thought Content: Thought content normal. Judgment: Judgment normal. Procedures Procedures * Jennifer Jules - 09/16/2022 1652 EDT 12 Lead EKG Performed by JENNIFER JULES and shown to Vamsi Monroy MD. documented in this encounter Plan of Treatment Upcoming Encounters Date Type Department Care Team (Late st Contact Info) Description 02/16/2024 13:50 EDT Appointment [facility] [address] [place] [address] documented as of this encounter Procedures Procedure Name Priority Date/Time Associated Diagnosis Comments ECG REPORT - SCANNED 09/17/2022 8:[address] ABDOMEN PELVIS W CONTRAST STAT 09/16/2022 17:33 EDT TROPONIN I STAT 09/16/2022 17:12 EDT LACTIC ACID STAT 09/16/2022 17:12 EDT BACTERIAL CULTURE, BLOOD STAT 09/16/2022 17:10 EDT BACTERIAL CULTURE, BLOOD STAT 09/16/2022 17:09 EDT EKG 12-LEAD STAT 09/16/2022 16:48 EDT COMPLETE BLOOD COUNT AND DIFFERENTIAL STAT 09/16/2022 16:39 EDT MAGNESIUM STAT 09/16/2022 16:39 EDT LIPASE STAT 09/16/2022 16:39 EDT COMPREHENSIVE METABOLIC PANEL (CMP) STAT 09/16/2022 16:39 EDT documented in this encounter Results * ECG REPORT - SCANNED (09/17/2022 8:27 EDT) 09/17/2022 8:27 EDT Scan 2 Piper Installer PROCEDURE/MINOR HA GICAL ORDERABLES * CT ABDOMEN PELVIS W CONTRAST (09/16/2022 17:33 EDT) Anatomical Region Laterality Modality Body, Abdomen, Pelvis, Abdomen and Pelvis Computed Tomography 09/16/2022 17:0 6 EDT Impressions 09/16/2022 17:49 EDT 1. ?? Evidence of chronic portal hypertension including gastroesophageal varices and cavernous transformation of the portal vein again seen. 2. ?? Mild colonic and small bowel wall thickening new since prior, could be due to portal enteropathy and colopathy. ?? Alternatively consider infectious and inflammatory causes. 3. ?? Distal colonic diverticulosis without diverticulitis. 4. ?? Cystic and solid 54 x 55 mm left adnexal lesion, similar. ?? Malignancy must be considered. ??Workup with pelvic ultrasound is recommended if not previously performed. 5. ?? Additional findings as described. THIS DOCUMENT HAS BEEN ELECTRONICALLY SIGNED BY NENA LUNA MD FOR ANY QUESTIONS OR CONCERNS REGARDING THIS REPORT PLEASE CALL [facility] AT [phone] Narrative 09/16/2022 17:49 EDT PROCEDURE INFORMATION: Exam: CT Abdomen And Pelvis With Contrast Exam date and time: 09/16/2022 17:06 Age: 71 years old Clinical indication: Abdominal pain; Epigastric; Additional info: Severe abdominal pain, worst in the epigastrum, acute on chronic TECHNIQUE: Imaging protocol: Computed tomography of the abdomen and pelvis with contrast. Radiation optimization: All CT scans at this facility use at least one of these dose optimization techniques: automated exposure control; mA and/or kV adjustment per patient size (includes targeted exams where dose is matched to clinical indication); or iterative reconstruction. Contrast material: OMNI 350; Contrast volume: 100 ml; Contrast route: INTRAVENOUS (IV); ?? REPORTING DATA: Count of CT and Cardiac NM exams in prior 12 months: This patient has received [address] and 0 known cardiac nuclear medicine studies in the 12 months prior to the current study. COMPARISON: CT ABDOMEN PELVIS W CONTRAST 09/26/2021 11:18 FINDINGS: Lungs: Benign calcified granuloma in the left lower lobe. Diaphragm: The circumscribed cystic 35 mm right upper quadrant lesion along the diaphragmatic margin is stable and likely benign. Liver: Heterogeneous liver, containing areas of focal fat, somewhat less fatty than prior. No hepatic masses. Gallbladder and bile ducts: No calcified stones. No ductal dilation. Pancreas: No ductal dilation. No masses. ?? Spleen: No splenomegaly or focal lesions. Adrenal glands: No mass. Kidneys and ureters: No renal masses or hydronephrosis bilaterally. Stomach and bowel: Mild wall thickening of the descending colon is new since prior. Distal colonic diverticulosis without diverticulitis. Right hemicolectomy. Mild wall thickening of proximal to mid small bowel without obstruction new since prior. Appendix: No evidence of appendicitis. Intraperitoneal space: Mild edema in the mesentery, new since prior. No osman ascites. Vasculature: Gastroesophageal varices similar to prior. Cavernous transformation of the portal vein is similar to prior. Tortuous portal branches similar to prior. No aortic aneurysm. Lymph nodes: No significantly enlarged lymph nodes. Urinary bladder: Unremarkable as visualized. Reproductive: Cystic and solid 54 x 55 mm left adnexal lesion, similar. Hysterectomy. Bones/joints: The bones are demineralized. L4 pars defects again seen with severe spondylosis at L4-L5. Chronic mild anterior compression deformity of T11. No acute fracture or subluxation. Soft tissues: No suspicious lesions. ?? Vamsi Monroy MD IMG CT ORDERABLES * TROPONIN I (09/16/2022 17:12 EDT) Pathologist [facility] Troponin I (ng/mL) <0.034 <0.034 ng/mL 09/16/2022 17:45 EDT [facility] Blood VENOUS BLOOD / Unknown Venipuncture / Unknown 09/16/2022 17:12 EDT 09/16/2022 17:15 EDT Narrative [facility] - 09/16/2022 17:45 EDT The results of this assay can be falsely lowered due to the consumption of Biotin. Vamsi Monroy MD CHEMISTRY & BLOOD GA S ORDERABLES [facility] [address] [place] [address] * (ABNORMAL) LACTIC ACID (09/16/2022 17:12 EDT) Pathologist [facility] Lactic Acid 2.5(HH) <=2.0 mmol/L 09/16/2022 17:39 EDT [facility] Blood VENOUS BLOOD / Unknown Venipuncture / Unknown 09/16/2022 17:12 EDT 09/16/2022 17:17 EDT Vamsi Monroy MD CHEMISTRY & BLOOD GA S ORDERABLES Performing Organization Address [facility] de Phone Number [facility] [address] [place] [address] * BACTERIAL CULTURE, BLOOD (09/16/2022 17:10 EDT) Organism ID No Growth at 5 days VITEK SUSCEPTIBILITY 09/21/2022 17:31 EDT [facility] Blood VENOUS BLOOD / Unknown Venipuncture / Unknown 09/16/2022 17:10 EDT 09/16/2022 17:15 EDT Vamsi Monroy MD MICROBIOLOGY - GENER AL ORDERABLES Performing Organization Address [facility] de Phone Number [facility] [address] [place] [address] * BACTERIAL CULTURE, BLOOD (09/16/2022 17:09 EDT) Organism ID No Growth at 5 days VITEK SUSCEPTIBILITY 09/21/2022 17:31 EDT [facility] Blood VENOUS BLOOD / Unknown Venipuncture / Unknown 09/16/2022 17:09 EDT 09/16/2022 17:16 EDT Vamsi Monroy MD MICROBIOLOGY - GENER AL ORDERABLES Performing Organization Address [facility] de Phone Number [facility] [address] [place] [address] * EKG 12-LEAD (09/16/2022 16:48 EDT) 09/16/2022 16:4 8 EDT Narrative [facility] - 09/17/2022 8:22 EDT ? [facility] ? Test Date: ?2022-09-16 Pat Name: ? AMALIA NORTH ?Department: ? Room: ? C01 Gender: ? Female ? Criminal Defense Lawyer: ?? AC : ?1950 ? Requested By: TROY OROZCO Order Number: [id number] ? Reading MD: ?? SOFI BARRAZA MD ? Measurements Intervals ?Oto ? Rate: ? 59 ? P: ?37 MN: ? 200 ?QRS: ?25 QRSD: ? 76 ? T: ?44 QT: ? 444 ? QTc: ?439 ? Interpretive Statements Sinus bradycardia Compared to ECG 11/01/2019 14:57:08 Sinus rhythm no longer present I reviewed the tracing and have either agreed or edited the findings in this report. Electronically Signed On 09-17-2022 8:22:44 EDT by SOFI BARRAZA MD. Procedure Note Sofi Barraza MD - 09/17/2022 [facility] Test Date: 2022-09-16 Pat Name: AMALIA MOREIRA Department: Room: 1 Gender: Female Criminal Defense Lawyer: ABEL : 1950 Requested By: TROY OROZCO Order Number: [id number] Reading MD: SOFI BARRAZA MD Measurements Intervals Oto Rate: 59 P: 37 MN: 200 QRS: 25 QRSD: 76 T: 44 QT: 444 QTc: 439 Interpretive Statements Sinus bradycardia Compared to ECG 11/01/2019 14:57:08 Sinus rhythm no longer present I reviewed the tracing and have either agreed or edited the findings inthis report. Electronically Signed On 09-17-2022 8:22:44 EDT by SOFI VELAZQUEZ. Vamsi Monroy MD CARDIAC ECG ORDERABL ES Performing Organization Address City/[facility]/ZIP Co de Phone Number [facility] * (ABNORMAL) MAGNESIUM (09/16/2022 16:39 EDT) Magnesium 1.5(L) 1.7 - 2.8 mg/dL 09/16/2022 17:06 EDT [facility] Blood VENOUS BLOOD / Unknown Venipuncture / Unknown 09/16/2022 16:39 EDT 09/16/2022 16:41 EDT Vamsi Monroy MD CHEMISTRY & BLOOD GA S ORDERABLES Performing Organization Address [facility]/ZIP Co de Phone Number [facility] [address] [place] [address] * LIPASE (09/16/2022 16:39 EDT) Pathologist [facility] Lipase 106 <251 U/L 09/16/2022 17:06 [facility] Blood VENOUS BLOOD / Unknown Venipuncture / Unknown 09/16/2022 16:39 EDT 09/16/2022 16:41 EDT Vamsi Monroy MD CHEMISTRY & BLOOD GA S ORDERABLES [facility] [address] [place] [address] * (ABNORMAL) COMPREHENSIVE METABOLIC PANEL (CMP) (09/16/2022 16:39 EDT) Pathologist [facility] Sodium 138 136 - 145 mmol/L 09/16/2022 17:06 [facility] Potassium 3.6 3.5 - 5.0 mmol/L 09/16/2022 17:06 [facility] Chloride 100 96 - 110 mmol/L 09/16/2022 17:06 [facility] CO2 Total 30 22 - 32 mmol/L 09/16/2022 17:06 [facility] Glucose 152(H) 70 - 100 mg/dL 09/16/2022 17:06 [facility] BUN 14 10 - 26 mg/dL 09/16/2022 17:06 [facility] Creatinine 0.65 0.52 - 1.04 mg/dL 09/16/2022 17:06 [facility] eGFR 94 >60 mL/min/1.7 3m2 09/16/2022 17:06 [facility] Total Protein 6.7 6.3 - 8.2 g/dL 09/16/2022 17:06 [facility] Albumin 3.8 3.4 - 4.9 g/dL 09/16/2022 17:06 [facility] Alkaline Phosphatase 87 38 - 126 U/L 09/16/2022 17:06 [facility] AST 49(H) 15 - 46 U/L 09/16/2022 17:06 [facility] ALT 30 <35 U/L 09/16/2022 17:06 [facility] Bilirubin, Total 0.9 <1.4 mg/dL 09/17/19 17:06 [facility] Calcium 8.7 8.5 - 10.5 mg/dL 09/16/2022 17:06 [facility] Albumin/Globulin Ratio 1.3 1.0 - 2.5 09/16/2022 17:06 [facility] Anion Gap 8 5 - 14 09/16/2022 17:06 [facility] Blood VENOUS BLOOD / Unknown Venipuncture / Unknown 09/16/2022 16:39 EDT 09/16/2022 16:41 EDT Vamsi Monroy MD CHEMISTRY & BLOOD GA S ORDERABLES Performing Organization Address City/State/[facility] Co de Phone Number [facility] [address] [place] [address] * (ABNORMAL) COMPLETE BLOOD COUNT AND DIFFERENTIAL (09/16/2022 16:39 EDT) WBC 4.49 4.00 - 12.40 K/cmm 09/16/2022 16:44 [facility] RBC 4.05 3.86 - 5.04 M/cmm 09/16/2022 16:44 [facility] Hemoglobin 13.3 11.6 - 15.2 gm/dL 09/16/2022 16:44 [facility] HCT 39.4 34.9 - 44.4 % 09/16/2022 16:44 [facility] MCV 97 81 - 98 fl 09/16/2022 16:44 [facility] MCH 32.8 26.7 - 33.3 pg 09/16/2022 16:44 [facility] MCHC 33.8 32.1 - 35.9 gm/dL 09/16/2022 16:44 [facility] RDW-CV 12.9 <14.7 % 09/16/2022 16:44 [facility] RDW-SD 46.4 <50.4 fl 09/16/2022 16:44 [facility] PLT 156 141 - 377 K/cmm 09/16/2022 16:44 [facility] MPV 9.6 9.5 - 12.7 fl 09/16/2022 16:44 [facility] % Neutrophils 48.8 % 09/16/2022 16:44 [facility] % Lymphocytes 33.6 % 09/16/2022 16:44 [facility] % Monocytes 11.6 % 09/16/2022 16:44 [facility] % Eosinophils 4.5 % 09/16/2022 16:44 [facility] % Basophils 1.1 % 09/16/2022 16:44 [facility] % Immature Grans 0.4 % 09/17/19 16:44 [facility] Absolute Neutrophils 2.19(L) 2.20 - 8.85 K/cmm 09/16/2022 16:44 [facility] Absolute Lymphocytes 1.51 1.09 - 3.30 K/cmm 09/16/2022 16:44 [facility] Absolute Monocytes 0.52 0.10 - 0.80 K/cmm 09/16/2022 16:44 [facility] Absolute Eosinophils 0.20 0.03 - 0.61 K/cmm 09/16/2022 16:44 [facility] ABS Basophils 0.05 0.01 - 0.11 K/cmm 09/16/2022 16:44 [facility] Absolute Immature Grans 0.02 0.00 - 0.06 K/cmm 09/16/2022 16:44 [facility] Type of Differential: Auto 09/16/2022 16:44 [facility] Blood VENOUS BLOOD / Unknown Venipuncture / Unknown 09/16/2022 16:39 EDT 09/16/2022 16:41 EDT Vamsi Monroy MD PACKAGES & DNA PROBE ORDERABLES [facility] [address] [place] [address] documented in this encounter Visit Diagnoses Diagnosis Epigastric pain- Primary Abdominal pain, epigastric documented in this encounter Administered Medications Inactive Administered Medications - up to 3 most recent administrations Medication Order MAR Action Action Date Dose Rate Site iohexoL (OMNIPAQUE 350) solution 100 mL 100 mL, intravenous, Once in imaging, 1 dose, Starting on Wed09/16/22 at 1708, Until Wed09/16/22 at 1733, Routine Given 09/16/2022 17:33 EDT 100 mL ketOROLAC (TORADOL) injection 15 mg 15 mg, intravenous, NOW X1, 1 dose, On Wed09/16/22 at 1700, STAT Given 09/16/2022 16:52 EDT 15 mg lactated ringers BOLUS 1,000 mL 1,000 mL, intravenous, NOW X1, 1 dose, On Wed09/16/22 at 1700, STAT Given 09/16/2022 16:51 EDT 1,000 mL ondansetron (PF) (ZOFRAN) injection 4 mg 4 mg, intravenous, NOW X1, 1 dose, On Wed09/16/22 at 1700, STAT Given 09/16/2022 16:52 EDT 4 mg ondansetron (PF) (ZOFRAN) injection 4 mg 4 mg, intravenous, NOW X1, 1 dose, On Wed09/16/22 at 1830, STAT Given 09/16/2022 18:12 EDT 4 mg traMADol (ULTRAM) tablet 50 mg 50 mg, oral, NOW X1, 1 dose, On Wed09/16/22 at 1830, STAT Given 09/16/2022 18:12 EDT 50 mg documented in this encounter Historical Medications * This list may reflect changes made after this encounter. Medication Sig Dispensed Refills Start Date End Date ondansetron (ZOFRAN) 4 mg tablet Take 1 Tablet by mouth every 8 hours as needed. 08/18/2021 traMADol (ULTRAM) 50 mg tablet Take 1 Tablet by mouth every 6 hours as needed. 12/02/2021 torsemide (DEMADEX) 10 mg tablet Take 1 Tablet by mouth as needed. rifAXIMin (XIFAXAN) 550 mg tablet Take 1 Tablet by mouth 2 times daily. 02/25/2022 pantoprazole (PROTONIX) 40 mg tablet Take 1 Tablet by mouth daily. 09/12/2021 fluticasone propion-salmeteroL (ADVAIR) 250-50 mcg/dose diskus inhaler Inhale 1 Puff as directed every 12 hours. diclofenac sodium gel 1 mg. 09/29/2021 montelukast (SINGULAIR) 10 mg tablet Take 10 mg by mouth every evening. 08/18/2021 01/02/2024 montelukast (SINGULAIR) 10 mg tablet Take 10 mg by mouth daily. 04/08/2022 01/02/2024 loratadine (CLARITIN) 10 mg tablet Take 10 mg by mouth daily. 05/04/2022 01/02/2024 losartan (COZAAR) 25 mg tablet Take 1 Tablet by mouth daily. 09/01/2022 01/04/2024 levothyroxine (SYNTHROID) 88 mcg tablet Take 1 Tablet by mouth daily. 08/21/2021 01/04/2024 added in this encounter Active and Recently Administered Medications Times are shown in EDT. Scheduled Medication Order 09/14/2022 09/15/2022 09/16/2022 iohexoL (OMNIPAQUE 350) solution 100 mL (COMPLETED) 100 mL, intravenous, Once in imaging, 1 dose, Starting on Wed09/16/22 at 1708, Until Wed09/16/22 at 1733, Routine 1733 (Given - Provid er: Adina Claudio) ketOROLAC (TORADOL) injection 15 mg (COMPLETED) 15 mg, intravenous, NOW X1, 1 dose, On Wed09/16/22 at 1700, STAT 1652 (Given - Provid er: Geovanny May RN) lactated ringers BOLUS 1,000 mL (COMPLETED) 1,000 mL, intravenous, NOW X1, 1 dose, On Wed09/16/22 at 1700, STAT 1651 (Given - Provid er: Geovanny May RN) ondansetron (PF) (ZOFRAN) injection 4 mg (COMPLETED) 4 mg, intravenous, NOW X1, 1 dose, On Wed09/16/22 at 1700, STAT 1652 (Given - Provid er: Geovanny May RN) ondansetron (PF) (ZOFRAN) injection 4 mg (COMPLETED) 4 mg, intravenous, NOW X1, 1 dose, On Wed09/16/22 at 1830, STAT 1812 (Given - Provid er: Geovanny May RN) traMADol (ULTRAM) tablet 50 mg (COMPLETED) 50 mg, oral, NOW X1, 1 dose, On Wed09/16/22 at 1830, STAT 1812 (Given - Provid er: Geovanny May RN) documented in this encounter Care Teams Project Manager Entertainment And Media Relationship Specialty Start Date End Date Jacinta Black APRN [address] [place] [phone] PCP - General 09/26/21 documented as of this encounter
--- OUTSIDE RECORDS SUMMARY | 2024-01-11 15:25 | XMS_ITS | Encounter Summary ---
Author Organization [facility] Address [address] [place] [address] Care Team Providers Care Sweet Dough Mixer Name Role Phone Rico Aburto MD Primary Care Provider [phone] Jacinta Black APRN Primary Care Provider [phone] Encounter Details Date Type Department Care Team (Late st Contact Info) Description 12/28/[address] [facility] Radiology Results [address] [place], [place] [id number] Rico Aburto MD [address] [place] [id number] Social History Tobacco Use Types Packs/Day [...] EDT Appointment [facility] Mammography [address] [place], [place] [address] documented as of this encounter Procedures Procedure Name Priority Date/Time Associated Diagnosis Comments MA BREAST SCREENING VIRAL BILATERAL 12/28/2019 10:10 EDT documented in this encounter Results * MA BREAST SCREENING VIRAL BILATERAL (12/28/2019 10:10 EDT) Anatomical Region Laterality Modality Breast Bilateral Mammography 12/28/2019 10:1 0 EDT Narrative 12/28/2019 10:10 EDT ? EXAM: MAMMOGRAM/MAMMO BILATERAL SCREEN W ??EX. D/ (1412) ? CLINICAL INFORMATION: ? Z12.31 SCREENING ? INDICATION: Z12.31 SCREENING SCREENING, 12/22/18 ? COMPARISON: ??Comparison has been made to previous images. ? TECHNIQUE: ??Full field digital whole breast 2D (C-view) and 3D CC and ? MLO views of both breasts were obtained. CAD technology was utilized. ? FINDINGS: ??The fibroglandular patterns of the breasts are normal. ? There has been no change when compared to previous mammograms and ? there is no mammographic evidence of cancer. ??The breast tissue is ? almost entirely fatty. ? FINAL ASSESSMENT: ??BILATERAL BREAST - Category 1 - Negative. Routine ? mammographic ? follow-up is recommended. ? These results will be communicated to your patient via a lay letter ? from Radiology. ??If any additional imaging is needed we will contact ? your patient directly. ? REPORT SIGNED IN OTHER VENDOR SYSTEM 12/28/2019 ?Reported By: Eric Campoverde MD ? CC: ? Transcribed Date/Time: 12/28/2019 (1010) ? Architecture Analyst: ? Printed Date/Time: 12/28/2019 (0888) ? PAGE 1 ? Signed Report ? Procedure Note Eric Campoverde MD - 12/28/2019 EXAM: MAMMOGRAM/MAMMO BILATERAL SCREEN W EX. D/ (1412) CLINICAL INFORMATION: Z12.31 SCREENING INDICATION: Z12.31 SCREENING SCREENING, 12/22/18 COMPARISON: Comparison has been made to previous [...] directly. REPORT SIGNED IN OTHER VENDOR SYSTEM 12/28/2019 Reported By: Eric Campoverde MD CC: Transcribed Date/Time: 12/28/2019 (1010) Architecture Analyst: Printed Date/Time: 12/28/2019 (1230) PAGE 1 Signed Report Rico Aburto MD [facility] MAMMOGRAPHY [facility] documented in this encounter Visit Diagnoses Not on filedocumented in this encounter Additional Health Concerns Infection Onset Date Last Indicated Resolved Time R/O COVID-19 09/29/2023 09/29/2023 09/29/2023 13:1 8 EDT documented as of this encounter Care Teams Sweet Dough Mixer Relationship Specialty Start Date End Date Rico Aburto MD [address] [place] [address] PCP - General 11/01/19 09/25/21 Jacinta Black APRN [address],[facility] [address] [place] [phone] PCP - General 09/26/21 documented as of this encounter
--- OUTSIDE RECORDS SUMMARY | 2024-01-11 15:25 | XMS_ITS | Encounter Summary ---
Author Organization [facility] Address [address] [place] [address] Care Team Providers Care Systems Test Technician Name Role Phone Unavailable Primary Care Provider Unavailabl e Encounter Details Date Type Department Care Team (Latest Contact Info) Description 09/01/2005 11:03 EDT - 09/01/2005 11:59 EDT Hospital Encounter [facility] [place] [address] [place] [address] Mookie Schmidt MD [address] [place] [address] Discharge Disposition: Auto Discharge Social History Tobacco [...] [facility] Mammography [address] [place] [address] documented as of this encounter Visit Diagnoses Not on filedocumented in this encounter
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
--- OUTSIDE RECORDS SUMMARY | 2024-01-11 15:25 | XMS_ITS | Encounter Summary ---
Author Organization [facility] Address [address] [place] [address] Care Team Providers Care Dairy Processing Equipment Operator Name Role Phone Jacinta Black APRN Primary Care Provider [phone] Reason for Referral * Referral (STAT) - New Request Specialty Diagnoses / Procedures [facility] Referred To Contact Diagnoses TIA (transient ischemic attack) Ra Ramsey MD [address] [place] [address] [facility] [address] [place] [address] Referral ID Status Reason Start Date Expiration Date Visits Requested Visits Authorized [id number] New Request Specialty Services Required 01/04/2024 1 1 Question Answer I certify that this patient is under my care and that I, or another Medicare allowed practitioner (DO ISAIAH, ARIELA) working with me, had a [id number] encounter with this patient on this date: 01/04/2024 The discharge summary or progress note will provide further details that support the need for the home health services and the plan of care. Yes Enter the allowed practitioner (DO ISAIAH, ARIELA) who will provide oversight of this patient's home heatlh care needs and plan of care SENG Black Some payers require a patient to be homebound to qualify for home health services. Homebound definition: Absences from home are infrequent or for relatively short duration (such as for medical appointments). Is patient HOMEBOUND? Yes The patient? s homebound status is related to the following diagnoses, illness or condition (describe): s/p TIA. unsteady The patient has a condition due to an illness or injury that restricts the ability to leave home except with: Person to assist Leaving home requires a considerable and taxing effort with mobility limited by the following (criteria 1): Impaired safety awareness Leaving home requires a considerable and taxing effort with mobility limited by the following (criteria 2): Impaired balance Skilled care requested: Nursing (includes assessment, treatment, disease management/education, wound care), Acute therapies (includes PT, BROADCAST PROGRAM DIRECTOR) Nursing skilled care requested: Nursing assessment snf assessment needed related to this encounter: Response to new or changed medication Additional services available with shelter: Occupational therapy Occupational Therapy ([facility]/PT referral req'd): Yes Occupational Therapy for: ADL Training, Assess Need for Adaptive Equipment, Bathroom Equipment Eval Therapies skilled care requested: Physical Therapy Physical therapy is needed for: Evaluation, Safety, Gait/Mobility Assessment and Training, Equipment Recommendations Expected Discharge Date (Inpatient Only): 01/04/2024 Comments Check blood pressure daily. Document weight 3 x per week Reason for Visit * Reason Comments Altered Mental Status Patient comes in w ith AMS from home. reports that she went down for a nap around 2-3 after eating and woke up confused about where she was. Kept repeating herself. States over and over that she needs to pee, and often saying the word no. * Auth/Cert (Routine) Specialty Diagnoses / Procedures Referred By Charan t Referred To Contact Diagnoses Acute cerebrovascular accident (CVA) ([facility]) Aphasia due to acute cerebrovascular accident (CVA) ([facility]) Referral ID Status Reason Start Date Expiration Date Visits Re quested Visits Authorized [id number] 1 1 Encounter Details Date Type Department Care Team (Latest Contact Info) Description 01/02/2024 19:21 EDT - 01/04/2024 14:[address] [facility] Medical / Surgical Department [address] [place] [address] Mone Tyler MD [address] [place] [address] Meghan Woo DO [address] [place] [address] Ra Ramsey MD [address] [place] [address] Aphasia due to acute cerebrovascular accident (CVA) ([facility]) (Primary Dx); Acute cerebrovascular accident (CVA) ([facility]) [I63.9]; Expressive aphasia; TIA (transient ischemic attack) Discharge Disposition: Home-Health Care [facility] Social History Tobacco Use Types Packs/Day Years Used Date Smoking Tobacco: Never Smokeless Tobacco: Never Tobacco Cessation:Counseling Given: Not Answered [facility] Utilities Answer Date Recorded In the past [...] any time in the past 12 m [facility], were you homeless or living in a half-way (including now)? No 01/03/2024 Interpersonal Safety Answer Date Record ed How often does anyone, chantell beebe family, hit, punch or physically hurt you? 01/02/2024 How often does anyone, inclu ding family, insult, scream, curse or threaten to [...] Body Mass Index 28.79 01/02/2024 2347 EDT documented in this encounter Functional Status Functional [...] (5 years old or older) Yes 01/02/2024 documented as of this encounter Discharge Summaries * Ra Ramsey MD - 01/04/2024 1426 EDT HOSPITAL MEDICINE DISCHARGE SUMMARY Primary Care Provider: Jacinta Black Attending Physician: Ra Ramsey MD Admit Date: 01/02/24 Discharge Date: 01/04/2024 Disposition (location): Home with home health Condition at Discharge: Improved Reason for Admission (chief complaint): Chief Complaint Patient presents with Altered Mental Status Patient comes in with AMS from home. reports that she went down for a nap around 2-3 after eating and woke up confused about where she was. Kept repeating herself. States over and over that she needs to pee, and often saying the word no. Principal/Final Diagnosis: TIA Additional Problems Managed in the Hospital: Cannot exclude hepatic encephalopathy Cannot exclude hypotensive event Hypothyroidism/subtherapeutic levothyroxine Transition of care: [facility] Transition of Care report automatically routed to PCP office on discharge. Clinical Issues Needing Follow-up 1. Pertinent medication changes: -Addition of daily aspirin, high intensity statin -Holding ibuprofen, losartan, Lasix, spironolactone at time of discharge. She will follow-up closely with PCP. Would follow-up blood pressure, volume status, reinitiate diuretics and potentially antihypertensives if necessary/indicated -Rifaximin she had not been taking prior to arrival, she had stopped. I encouraged her to resume this, with consideration of hepatic encephalopathy playing a role -Levothyroxine dose increased from 88 mcg daily to 100 mcg daily 2. Recommended follow-up tests/procedures needed: -Follow-up regarding neurologic symptoms, ensure lack of return of symptoms -Follow-up response to therapies including PT, OT -Follow-up regarding adherence to rifaximin, possibility of hepatic encephalopathy -Follow-up volume status. Diuretics presently held, likely will need to be resumed, but with some concern that she may have had hypotensive event, perhaps related to some hypovolemia upon arrival, these are held for now, consider resuming at outpatient follow-up. -BUSINESS MANAGEMENT ANALYST losartan held for now, with concern for possible hypotension contributing to her altered mental status on arrival. Follow blood pressures, reinitiate as indicated -Follow-up TSH 4 to 6 weeks after levothyroxine dose adjustment -PCP follow-up regarding risk factor modification, for prevention of future TIA 3. Anticoagulation on discharge: No 4. Changes to goals care at time of discharge (if applicable): No Exam Date of Discharge: Subjective: Feeling quite well today. Speaking fluently. No headache no focal weakness numbness no paresthesias. We discussed outpatient follow-up plans, medication changes at length. Also discussed with her partner who is at bedside. No other specific concerns presently. Agreeable with follow-up plans, medication plans. Vitals: BP 130/79 (BP Cuff Location: Left arm, BP Patient Position: Sitting) Pulse 72 Temp 36.4??C (97.5 ??F) (Oral) Resp 19 Ht 157.5 cm (62) Wt 71.4 kg (157 lb 6.4 oz) SpO2 95% BMI 28.79 kg/m?? PHYSICAL EXAM Gen: AAOx3, NAD. Up, ambulatory. Normal gait. HEENT: EOMI, MMM, no scleral icterus Neck: Supple CV: RRR, no m/r/g Pulm: CTAB, good air movement, no w/r/r Abd: Soft, NTND, no HSM GI: +BS Extrem: Warm and well perfused, no cyanosis or edema. : Chou absent Skin: No acute appearing rash. Warm and dry. Sacrum not examined Psych: Normal mood and affect Neuro: Grossly non-focal. CN 2-12 grossly intact. Normal speech, fluids. Hospital Course: Per Dr. Woo's HPI at admission: Amalia Jones is a 73 y.o. female with mild cognitive impairment, chronic abdominal pain, portal venous thrombus for which she is managed by [facility] gastroenterology presents emergency department with sudden onset confusion, aphasia. The patient woke this morning in her normal state of health. She wentto [employer]ian[employer]. When she returned from [employer] she took a nap, which is not unusual for her. Upon waking from her nap, the patient was having a difficult time speaking and could only see the word no. She was agitated. Her family states that they had to carry her outside because she refused to go to the emergency room. She was able to ambulate and seems to be able to move her arms equally. The patient can only say ouch, no, home, and occasionally yes. Her family states that her saying yes is actually an improvement. The patient seems to be able to understand most questions and is actually able to type answer onto her phone. The patient is right-handed. She has no history of stroke. She does have family history of stroke with her father. Patient has no fevers or chills. No recent illness.No history of blood clots. No history of coronary artery disease. Patient was given 10 mg of Zyprexa in the emergency department as she was agitated, but is now calm and cooperative. Patient is complaining of pain from her Chou catheter which was placed that she was continuously stating that she had to go to the bathroom. Urinalysis is unremarkable. Hospital course: Patient was admitted with consideration of acute CVA given her presenting symptoms including significant expressive aphasia. MRI brain however was entirely negative. Her symptoms improved throughout the following day. Given some uncertainty in diagnosis, neurology was consulted. Please see neurology consult for details, but in short, TIA was thought to be possible, so recommended continuing aspirin, atorvastatin. Recommended follow-up with PCP for control of risk factors. Also PT, ongoing, which will be provided by [facility]. TTE negative for PFO, no other acute process. Patient is doing quite well today, very fluent in her speech, much better, advocating for discharge. We discussed possible TIA and she is in agreement with the plan above. Also discussed other possibilities here. Her blood pressure has been normal off of the antihypertensive medications and off herdiuretics. We wondered if maybe she had a hypotensive event at home. For now have held diuretics and antihypertensives, she will follow-up closely as outpatient. I suspect given her known portal veinthrombosis, she will need readdition of her diuretics, but would do this gently, and slowly as outpatient. Another consideration was hepatic encephalopathy. Though her ammonia level was normal, this does not exclude hepatic encephalopathy, and she had not been taking her rifaximin recently. For now who recommended that she resume her rifaximin. She was in agreement. She did receive lactulose while she was here. TSH is mildly elevated at 6.66. Have increased her levothyroxine, asked her to follow-up closely asoutpatient including for repeat TSH in 4 to 6 weeks. Relevant Imaging/Procedures Performed: CT head: IMPRESSION No acute or concerning focal intracranial abnormality. CTA head and neck: IMPRESSION No intracranial large vessel arterial occlusive or stenotic lesion and no evidence of [id number] aneurysm or dural sinus thrombosis. MRI head: IMPRESSION 1. No acute intracranial abnormality is detected. 2. Mild cerebral global volume loss and scattered high T2 signal white matter changes. This patternis nonspecific however most commonly reflects small vessel ischemic disease of aging. TTE: Left Ventricle: Left ventricular systolic function was normal with an ejection fraction of 60-65%. Left ventricular wall motion was normal; there were no regional wall motion abnormalities. Right Ventricle: The right ventricular cavity was normal in size. Right ventricular systolic function was normal. Left Atrium: No right to left shunting observed with agitated saline contrast injection both at rest and with Valsalva. Results Pending at Discharge: Test results still pending from this admission None Upcoming Appointments Feb 16, 2024 13:50 (Arrive by 13:35) Mammogram Screening with [facility] Mammography ([facility] Radiology) [address] [place] [address] No fragranced lotions, perfume, or powder, but deodorant is okay. Follow-up appointments and procedures [facility] ([facility]) Check blood pressure daily. Document weight 3 x per week I certify that this patient is under my care and that I, or another Medicare allowed practitioner (DO ISAIAH, ARIELA) working with me, had a [id number] encounter with this patient on this date: 01/04/2024 The discharge summary or progress note will provide further details that support the need for the home health services and the plan of care.: Yes Enter the allowed practitioner (DO ISAIAH, ARIELA) who will provide oversight of this patient's home heatlh care needs and plan of care: SENG Black Some payers require a patient to be homebound to qualify for home health services. Homebound definition: Absences from home are infrequent or for relatively short duration (such as for medical appointments). Is patient HOMEBOUND?: Yes The patient???s homebound status is related to the following diagnoses, illness or condition (describe): s/p TIA. unsteady The patient has a condition due to an illness or injury that restricts the ability to leave home except with: Person to assist Leaving home requires a considerable and taxing effort with mobility limited by the following (criteria 1): Impaired safety awareness Leaving home requires a considerable and taxing effort with mobility limited by the following (criteria 2): Impaired balance Skilled care requested: Nursing (includes assessment, treatment, disease management/education, wound care) Acute therapies (includes PT, BROADCAST PROGRAM DIRECTOR) Nursing skilled care requested: Nursing assessment snf assessment needed related to this encounter: Response to new or changed medication Additional services available with shelter: Occupational therapy Occupational Therapy ([facility]/PT referral req'd): Yes Occupational Therapy for: ADL Training Assess Need for Adaptive Equipment Bathroom Equipment Eval Therapies skilled care requested: Physical Therapy Physical therapy is needed for: Evaluation Safety Gait/Mobility Assessment and Training Equipment Recommendations Expected Discharge Date (Inpatient Only): 01/04/2024 Authorizing Provider: Ra Ramsey MD I personally spent > 30 minutes reviewing the chart, evaluating and examining the patient, and counseling and preparing the patient for discharge today. Ra Ramsey MD 01/04/2024 14:42 documented in this encounter Discharge Instructions * Attachments The following attachments cannot be sent through Care Everywhere. * Stroke (Wallisian) * Stroke: Symptoms: General Info (Wallisian) * Transient Ischemic Attack: General Info (Wallisian) documented in this encounter Medications at Time of Discharge Medication Sig Dispensed Refills Start Date End Date albuterol 90 mcg/actuation inhaler INHALE 1 PUFF FOUR TIMES DAILY NEEDED FOR SHORTNESS OF BREATH OR WHEEZING aspirin chewable 81 mg tablet Take 1 Tablet by mouth daily. 30 Tablet 01/04/2024 atorvastatin (LIPITOR) 80 mg tablet Take 1 Tablet by mouth at bedtime. 30 Tablet 01/04/2024 cetirizine (ZYRTEC) 10 mg tablet Take 1 Tablet by mouth every evening. Cholecalciferol, Vitamin D3, 25 mcg (1,000 unit) capsule Take by mouth. cyclobenzaprine (FLEXERIL) 5 mg tablet take 1 tablet by mouth 2 times every day as needed spasms 04/20/2023 diclofenac sodium gel 1 mg. 09/29/2021 dorzolamide (TRUSOPT) 2 % ophthalmic solution INSTILL 1 DROP INTO LEFT EYE TWICE DAILY 09/10/2023 fluticasone propion-salmeteroL (ADVAIR) 250-50 mcg/dose diskus inhaler Inhale 1 Puff as directed every 12 hours. furosemide (LASIX) 20 mg tablet daily. 12/11/2022 latanoprost (XALATAN) 0.005 % ophthalmic solution INSTILL 1 DROP IN BOTH EYES EVERY DAY AT BEDTIME 09/10/2023 levothyroxine (SYNTHROID) 100 mcg tablet Take 1 Tablet by mouth daily. 30 Tablet 01/04/2024 Magnesium 250 mg tablet Take 330 mg by mouth. multivitamin combination no.56 tablet,chewable Take by mouth. ondansetron (ZOFRAN) 4 mg tablet Take 1 Tablet by mouth every 8 hours as needed. 08/18/2021 pantoprazole (PROTONIX) 40 mg tablet Take 1 Tablet by mouth daily. 09/12/2021 polyethylene glycol 3350 (MIRALAX) 17 gram packet Take 17 g by mouth daily. rifAXIMin (XIFAXAN) 550 mg tablet Take 1 Tablet by mouth 2 times daily. 02/25/2022 spironolactone (ALDACTONE) 25 mg tablet Take 1 Tablet by mouth daily. torsemide (DEMADEX) 10 mg tablet Take 1 Tablet by mouth as needed. traMADol (ULTRAM) 50 mg tablet Take 1 Tablet by mouth every 6 hours as needed. 12/02/2021 documented as of this encounter Ordered Prescriptions Prescription Sig Dispensed Refills Start Date End Da te atorvastatin (LIPITOR) 80 mg tablet Take 1 Tablet by mouth at bedtime. 30 Tablet 01/04/2024 aspirin chewable 81 mg tablet Take 1 Tablet by mouth daily. 30 Tablet 01/04/2024 levothyroxine (SYNTHROID) 100 mcg tablet Take 1 Tablet by mouth daily. 30 Tablet 01/04/2024 documented in this encounter Discharge Disposition Disposition Code Departure Means Destination Comment s Home-Health Care [facility] Home documented in this encounter Progress Notes * Alejandra Ignacio - 01/04/20249 EDT Pt discharged home today with and a referral for [facility] home health services (RN, PT, OT). Spoke with pt/ about services and what to expect. They understand and accept. MD orders/clinical faxed to [facility]. * Luh Nguyen, OT - 01/04/2024 1423 EDT [facility] Inpatient Rehabilitation Services Main [place] Occupational Therapy Discontinue/Discharge Note Date: 01/04/2024 SUBJECTIVE: None OBJECTIVE: The patient has been discharged from the hospital. Please refer to the Occupational Therapy Initial Evaluation Note for details. ASSESSMENT: Unable to assess her current status as the patient was not seen for any additional therapy sessions. GOALS: All goals discontinued. PLAN: Discontinue occupational therapy. Luh Nguyen OT 01/04/2024 15:52 * Felicia Beyer, PT - 01/04/2024 1426 EDT [facility] Inpatient Rehabilitation Services [facility] Physical Therapy Discontinue/Discharge Note Date of Service: 01/04/2024 Diagnosis: CVA Date of Onset: 01/02/24 Referring Provider: Meghan Woo, DO Mobility Precautions Activity: Fall risk/precautions, Ambulate with assistive device, Up with assistance SUBJECTIVE: Subjective Statements Patient/caregiver states: I'm doing great today. Patient/Caregiver Goals Patient and Caregiver Goals: Return to my normal life, Go home Reporting Person Subjective Information Reported by: Patient Pain Evaluation Pain Description: No report of pain during PT intervention. OBJECTIVE: In this reporting period 01/03/24 to today, the patient has been seen for physical therapy services.Please refer to the physical therapy notes for specifics on the patient's treatment sessions. Interventions Completed Today: Physical Therapy Today At: Time: 922 Total Treatment Time (minutes): 40 Timed Code Treatment Minutes: 40 Interventions Included Procedures: Gait training Gait Training Minutes: 40 Gait Training 1: Patient found in semi-kang's; transitioned to sitting with CGA (reports this as baseline at home). STS from EOB mod/ind without AD. Donned bathrobe in standing. Patient ambulated x60 ft without AD; supervision. Steady, slow gait with ind head turning, no LOB. Ascended/descended 4 steps without difficulty and light support on rails; reciprocal step over step pattern. Discussed strategies for home with support. BP 162/92 seated EOB after activity. Ambulated x 200 ft around unit; cueing for increasing gait speed, visual scanning with slight path deviation without LOB.BP 158/90 following activity. Discussed hx of dizziness/postional change impact. No symptoms with to day's mobility assessment. Education on recommendations for home support; follow-up with vestibularPT. Patient Status at the End of the Therapy Session The patient was left in the: bed with the: Call dietz in reach Patient Status at the End of the Therapy Session Comments: present Cardiopulmonary: See interventions. Range of Motion and Joint Integrity: Grossly WFL BLEs Muscle Performance: BLEs grossly >3/5 with knee ext, DF. Able to hold SLS with stable stance andCGA B. Able to perform mini-squat with controlled flexion B. Neuromotor Function/Development: No problems noted. Balance, Mobility, and Gait: See interventions. Patient/Family Education: Education Topics Activity/Work/Community: Pacing Medical Information/Signs and Symptoms: Vital sign response Mobility, Transfers, and Gait: Mobility recommendations, Functional transfers, Bed mobility, Gait training safety, Stair training safety Recommendations: Discharge recommendations/planning, Follow-up services Safety: Safety, Fall prevention Therapy Specific: Role of physical therapy, Treatment plan/goals Team Communication Communicated with: Nurse, Physician, risk manager When: Prior to therapy session, After therapy session By: Zoml-mq-imin communication, Other (Secure chat) About: Patient status. Mobility recommendations. Discharge recommendations. ASSESSMENT: Patient demonstrating large improvement of mobility on this date with equal BLE strength and improved activity tolerance with progression of gait/stairs at ind level without overt LOB or instability noted. Patient safe to discharge home with support from with recommendation for PT for balance/vestibular assessment follow-up. The patient: requires home health services as next level of care to provide continued rehabilitation services within the safety of the home setting. Short-Term Goals: Time Frame: 10 Days: 01/13/24 Goal: Patient will perform bed mobility mod/ind. Status: Progressing ( to assist CGA at home.) Goal: Patient will perform functional transfers mod/ind with LRAD. Status: Met Goal: Patient will ambulate x 150 ft mod/ind with LRAD. Status: Met Goal: Patient will ascend/descend two steps without rails to negotiate home environment. Status: Progressing, Met Long-Term Goals: Goals: Not Applicable PLAN: Patient/Family Education: Discharge planning, Falls Prevention, Safety, Patient education, Equipment Recommended Discharge Destination: Home with caregiver support/supervision Recommended Discharge Services Therapy Specific Services: Physical therapy Therapy Specific Services Comments: PT Felicia Beyer PT 01/04/2024 16:12 * Ada Albarado RN - 01/04/2024 1426 EDT Nursing Discharge Note D: Patient noted with discharge orders to: home with home health. A: Prescriptions faxed to pharmacy. Reviewed discharge instructions and prescriptions with Patient and Family IV d/c'd. Belongings collected and sent home with patient. R: Patient and Family verbalized understanding of discharge instructions and denied further questions. Ada Albarado RN 01/04/2024 18:09 * Nupur Lennon SLP - 01/04/2024 1344 EDT [facility] Inpatient Rehabilitation Services Main [place] Speech-Language Pathology Language/Aphasia Single Visit Evaluation Date of service: 01/04/2024 BROADCAST PROGRAM DIRECTOR Diagnosis: Aphasia: Medical Diagnosis: TIA Reason for Referral: concern of aphasia Referring Provider: Meghan Woo DO Start Time: 1030 Total Therapy minutes: 22 minutes SUBJECTIVE: I couldn't get words out, but now I'm not having any difficulty. Pt and report communicationskills are back to baseline. Pt reports no word-finding difficulties. OBJECTIVE: History: Per H&P: Amalia Jones is a 73 y.o. female with mild cognitive impairment, chronic abdominal pain, portal venous thrombus for which she is managed by [facility] gastro[facility]ology presents emergency department with sudden onset confusion, aphasia. The patient woke this morning in her normal state of health. She went to [employer]. When she returned from [employer] she took a nap, which is not unusualfor her. Upon waking from her nap, the patient was having a difficult time speaking and could only see the word no. She was agitated. Her family states that they had to carry her outside because she refused to go to the emergency room. She was able to ambulate and seems to be able to move her arms equally. The patient can only say ouch, no, home, and occasionally yes. Her family states that her saying yes is actually an improvement. The patient seems to be able to understand most questions and is actually able to type answer onto her phone. The patient is right-handed. She has no history of stroke. She does have family history of stroke with her father. Patient has no fevers or chills. No recent illness. No history of blood clots. No history of coronary artery disease. Patient wasgiven 10 mg of Zyprexa in the emergency department as she was agitated, but is now calm and cooperative. Patient is complaining of pain from her Chou catheter which was placed that she was continuously stating that she had to go to the bathroom. Urinalysis is unremarkable. Per chart review, pt's word-finding difficulty and aphasia started to clear by the day after she was admitted. By this morning, pt conversing normally per family. PMH: History reviewed. No pertinent past medical history. Current Diet: Regular Diet Diet prior to admission: regular diet with thin liquids. Current Medications: Current Facility-Administered Medications Medication Dose Route Frequency Provider Last Rate Last Admin acetaminophen (TYLENOL) tablet 650 mg 650 mg oral Q6H PRN Meghan Woo DO aspirin chewable tablet 81 mg 81 mg oral DAILY Meghan Woo DO 81 mg at 01/04/24 1131 atorvastatin (LIPITOR) tablet 80 mg 80 mg oral QHS Meghan Woo DO 80 mg at 01/03/245 budesonide-formoterol HFA (SYMBICORT) 160-4.5 mcg/actuation inhaler 2 Puff 2 Puff inhalation BID Ra Ramsey MD 2 Puff at 01/03/242001 calcium carbonate (TUMS) tablet 500 mg (200 mg elemental calcium) 1 Tablet 1 Tablet oral Q6H PRN Meghan Woo DO dorzolamide (TRUSOPT) 2 % ophthalmic solution 1 Drop 1 Drop left eye BID Meghan Woo DO 1 Drop at 01/04/24 1148 enoxaparin (LOVENOX) injection 40 mg 40 mg subcutaneous DAILY Meghan Woo DO 40 mg at 01/03/24 0957 lactulose (CHRONULAC) 20 gram/30 mL solution 30 mL 30 mL oral QID Ra Ramsey MD 30 mL at01/03/24 2125 latanoprost (XALATAN) 0.005 % ophthalmic solution 1 Drop 1 Drop both eyes QHS Meghan Woo DO 1 Drop at 01/03/24 212 levothyroxine (SYNTHROID) tablet 88 mcg 88 mcg oral DAILY Meghan Woo DO 88 mcg at 130 ondansetron (PF) (ZOFRAN) injection 4 mg 4 mg intravenous Q4H PRN Meghan Woo DO pantoprazole (PROTONIX) tablet 40 mg 40 mg oral DAILY Meghan Woo DO 40 mg at 01/04/24 1131 polyethylene glycol 3350 (MIRALAX) packet 17 g 17 g oral Daily PRN Meghan Woo DO rifAXIMin (XIFAXAN) tablet 200 mg 200 mg oral TID Ra Ramsey MD 200 mg at 01/04/24 1133 traMADol (ULTRAM) tablet 50 mg 50 mg oral Q6H PRN Meghan Woo DO Current Status: Cognitive Status: Patient was alert and cooperative during evaluation - dx of mild cognitive impairment. Respiratory Status: Respiratory status was judged to be WFL to support oral feeding. Cognitive Linguistic Assessment: Behavior: During evaluation today, patient presented as alert, cooperative, conversant, motivated, and engaged. The Western Aphasia Battery - Bedside was utilized to evaluate current speech-language/cognitive-linguistic function. Score: 59.5/60. Language skills are within functional limits. Speech-Language Function: Auditory Comprehension: Patient able to follow task instructions and answer questions in conversation without need for modification or cueing. Speech Intelligibility: Speech with functional intelligibility. No deficits noted. Verbal Expression: Patient demonstrates ability to express basic thoughts and needs without evidence of anomia or paraphasias. 1 mistake on long sentence repetition, though likely more related to memory. Pt demonstrated good object naming, following of commands, picture describing and no difficulties in general conversation. Patient/Family Education: Topic: Patient/Family education and training was completed today including the role of Speech-Language Pathology and results of today's exam/recommendations. Learner: patient and spouse Method of Education: Verbal Barriers to Learning/Education: none Patient: was able to verbalize understanding of information Family: was able to verbalize understanding of information Assessment /Clinical Impressions: is a female 73 y.o. admitted with TIA and aphasia. Pt currently presents with expressive and receptive language skills that are within functional limits based on the results of today's testing. Pt was able to follow direction and converse easily in conversation. She demonstrated adequate object naming, picture describing and answering of personal questions without any moments of anomia. Per pt and family, pt's communication skills are back to baseline. No further BROADCAST PROGRAM DIRECTOR indicated at this time. Plan /Recommendations: I do not anticipate further BROADCAST PROGRAM DIRECTOR intervention/managements needs in this setting. Please feel free toreconsult if patient demonstrates poor tolerance of recommendations listed below. Referrals: N/A BROADCAST PROGRAM DIRECTOR follow-up: Not indicated in this setting. Discharge Plan: home. SARAH Norton 01/04/2024 13:44 * Brii Scott - 01/04/2024 1054 EDT DC Destination and with who: spouse If Longterm, Level of Care: n/a Client and/or Family Aware and in Agreement with the dc plan: yes IM Issued: yes Community Service Referrals and Agency: [facility] Was the Agency/Person Notified, Who, Contact Info?: via [employer] chat Any New Equipment/What Type and from where?: n/a Mode of Transportation and Agency: spouse * Luh Nguyen, OT - 01/03/2024 1614 EDT [facility] Services [facility] [place] Occupational Therapy Initial Evaluation Note Date of Service: 01/03/2024 Diagnosis: CVA Date of Onset: 01/02/24 Referring Provider: Meghan Woo DO Reason for Referral: Evaluate and treat SUBJECTIVE: Subjective Statements Patient is currently having difficulty with: balance Patient/caregiver states: 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 female admitted on 01/02/2024 secondary to Aphasia due to acute cerebrovascular accident (CVA) ([facility]). The patient lives at [address] [place] [address] General Information Hand Dominance: Right Safety Assessment / Living Environment Home environment: [place] ([employer]. Pt calls it a garage-dominium) Basic Home Layout Entrance Stairs: Stairs to enter without rails # of Steps to Enter: 3 Indoor Stairs: Indoor stairs without railings (Single steps to negotiate various rooms in 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 Basic Activities of Daily Living - General Level of Assistance Throughout: Independent Instrumental Activities of Daily Living - General Level of Assistance Throughout: Independent Medical/Surgical History: CURRENT: The patient has Acute cerebrovascular accident (CVA) ([facility]); Aphasia due to acute cerebrovascular accident (CVA) ([facility]); and Expressive aphasia on their problem list. PAST: The patient has no past medical history on file. Body Functions and Performance Skills Cardiovascular/Respiratory Systems Function: Vital Signs Blood Pressure (mmHg): 106/52 Mental Functions: Arousal/Alertness: Alert Orientation Comments: oriented to hospital, month and year, limited on explanation of reason for hospitalization but when asked about tests, reported CT and MRI was done Memory Memory Comments: 0/3 word recall after 2 min Perceptual Problems Perceptual Problems Comments: noted difficulty with clock drawing left side number orientation Behavioral Characteristics Behavioral Characteristics: Pleasant and cooperative Communication Communication: Word finding difficulty, Relies on others for communication needs Communication Comments: mild word finding difficulty, looked to spouse at times for answers to questions re: history Clock Draw Test Clock Draw Test (0-7): 5 Sensory Functions: Vision - Basic Assessment Current Vision: Wears glasses for distance Additional Comments: pt does not consistently wear her glasses Additional Comments: mild difficulty seeing clock on the wall, but ultimately able to give correct time, able to read large print in booklet, some difficulty with smaller print - no glasses available Visual Mackenzie: No problems noted Oculomotor Lqzbig-Tlkuwn-Zmyksjx Assessment Pursuits: Decreased smoothness of horizontal tracking Additional Comments: mild bounce at end range right Saccades General Saccades: Decreased speed of pursuit between targets Neuromusculoskeletal and Movement Related Functions: Range of Motion: mild limitation both shoulders General Strength Evaluation: Manual muscle testing not formally performed, strength observed to be greater than or equal to 3 out of 5 with gross movement Strength, Additional Comments: UE strength appears symetrical General Coordination Coordination Additional Comments: finger-nose symetrical, decreased accuracy with vision occluded, delayed finger opposition noted with left hand Skin and Related Structure Functions: Bruise on left upper arm Areas of Occupation and Performance Skills Basic Activities of Daily Living: Grooming Wash/Dry Hands: stood at sink, SBA, able to extract soap from dispenser, assist to pull paper towel Lower Body Dressing Lower Body Dressing: difficulty reaching feet to adjust/don socks Toileting Toileting: assist for balance in standing to manage undergarment, performed hygiene with SB from seated position Level of Assistance: Minimal contact assistance Transfers - sit to stand with minimal contact assistance, from bedside chair - stand-step transfer with minimal contact assistance, with walker - stand to sit with moderate assistance, toilet transfer using grab bar, standard toilet Instrumental Activities of Daily Living: NT Informed Consent: Informed Consent: The patient consented to the Occupational Therapy evaluation. The patient agrees to and understands the Occupational Therapy treatment plan and goals. Interventions Completed Today: Occupational Therapy Today At: Time: 1400 Total Treatment Time (minutes): 55 Timed Code Treatment Minutes: 0 Therapy Session: The patient's family was present for the occupational therapy session Patient/Family Education: Education Topics Activity/Work/Community: Pacing Braces and Equipment: Assistive device/technique, Adaptive equipment/durable medical equipment Medical Information/Signs and Symptoms: Vital sign response, Ambulate with staff member only, Recovery process Mobility, Transfers, and Gait: Mobility recommendations, Functional transfers, Bed mobility Recommendations: Discharge recommendations/planning, Follow-up services Safety: Fall prevention Therapy Specific: Treatment plan/goals, Role of occupational therapy ASSESSMENT: Occupational Therapy examination reveals the following impairments: standing tolerance, coordination, cognition, activity tolerance, balance These impairments are contributing to the following activity limitations and participation restrictions: self-care, driving, home management tasks, independent living skills, functional mobility Very pleasant 73 y.o. admitted with AMS, aphasia and work up for stroke. Pt presenting with impaired balance, perceptual difficulties, decreased independence with self care and mobility. Cognition seems improved from admission, but pt still struggles with memory and executive functioning. Recommendcontinued skilled intervention. Pt has a very supportive family. Will continue to work with pt to progress and recommending KODY at this time. The patient's prior level of function was: Independent Current status is: below prior level of function The patient's rehabilitation potential is: good Progress may be improved by the following patient strengths: previous level of function, secure housing, family/social support, home environment, motivation Medical Necessity: occupational therapy is medically necessary to provide compensatory and remediation training to maximize the patient's independence and participation in activities of daily living and instrumental activities of daily living. Short Term Goals: Goal: Pt to complete toilet transfer and toileting tasks with SB assist using appropriate AD and DME, no additional cueing for safety Status: Initiated Goal: Pt to complete lower body dressing with SB assist using AE as appropriate Status: Initiated Goal: Pt to complete 10 min of grooming and hygiene tasks standing at sink with SB assist Status: Initiated Classification Case Manager Goals: Goals: Not Applicable PLAN: Necessity: Continue per established treatment plan Training: Activities of daily living retraining, Adaptive equipment evaluation/education, Assistivedevices/equipment training, Compensatory techniques, Cognitive-perceptual retraining, Cognitive retraining for activities of daily living, Transfer training Active Engagement: Activity tolerance, Therapeutic activities, Self-care/home management Frequency: Times per week Times Per Week: 5 Intensity: 15-45 minutes Duration: Duration of hospitalization Interventions May Include: Cognitive function intervention, Self-care/home management, Therapeutic activities Patient/Family Education: Discharge planning, Falls Prevention, Safety, Patient education, Equipment Recommended Discharge Destination: Subacute rehabilitation Recommended Discharge Services Therapy Specific Services: Physical therapy, Occupational therapy, Speech language pathology Next Session to Include: ADL training Luh Nguyen OT, 01/03/2024, 17:45 * Nupur Lennon SLP - 01/03/2024 5912 EDT [facility] Inpatient Rehabilitation Services [facility] Speech-Language Pathology Contact Note BROADCAST PROGRAM DIRECTOR consult received for: Clinical Bedside Swallow Evaluation and Aphasia Evaluation. Swallow evaluation on pt was completed this date - see note. Unable to complete aphasia/language evaluation as pt was busy with other provider upon return attempts. BROADCAST PROGRAM DIRECTOR to follow up 01/04/24 to complete language evaluation. Comments/Considerations: Speech-Language Pathologist to return within 24 hours. SARAH Norton 01/03/2024 15:42 * Nupur Lennon SLP - 01/03/2024 1520 EDT [facility] Services Main [place] Speech-Language Pathology Swallowing Single Visit Evaluation Date of service: 01/03/2024 BROADCAST PROGRAM DIRECTOR Diagnosis: Dysphagia, unspecified difficulty: Medical Diagnosis: Aphasia due to acute CVA Reason for Referral: stroke team consult Referring Provider: Meghan Woo DO Start Time: 1350 Total Therapy minutes: 15 minutes SUBJECTIVE: I'm eating fine. Pt reports no prior concerns of swallowing. Reports regular diet at home. Familyreports improvement in speech as compared to yesterday, though still some word-finding and hesitation. OBJECTIVE: History: Per H&P: Amalia Jones is a 73 y.o. female with mild cognitive impairment, chronic abdominal pain, portal venous thrombus for which she is managed by [facility] gastroenterology presents emergency department with sudden onset confusion, aphasia. The patient woke this morning in her normal state of health. She went to [employer]. When she returned from [employer] she took a nap, which is not unusualfor her. Upon waking from her nap, the patient was having a difficult time speaking and could only see the word no. She was agitated. Her family states that they had to carry her outside because she refused to go to the emergency room. She was able to ambulate and seems to be able to move her arms equally. The patient can only say ouch, no, home, and occasionally yes. Her family states that her saying yes is actually an improvement. The patient seems to be able to understand most questions and is actually able to type answer onto her phone. The patient is right-handed. She has no history of stroke. She does have family history of stroke with her father. Patient has no fevers or chills. No recent illness. No history of blood clots. No history of coronary artery disease. Patient wasgiven 10 mg of Zyprexa in the emergency department as she was agitated, but is now calm and cooperative. Patient is complaining of pain from her Chou catheter which was placed that she was continuously stating that she had to go to the bathroom. Urinalysis is unremarkable. PMH: History reviewed. No pertinent past medical history. Current Diet: Regular Diet Diet prior to admission: regular diet with thin liquids. Current Medications: Current Facility-Administered Medications Medication Dose Route Frequency Provider Last Rate Last Admin acetaminophen (TYLENOL) tablet 650 mg 650 mg oral Q6H PRN Meghan Woo DO aspirin chewable tablet 81 mg 81 mg oral DAILY Meghan Woo DO 81 mg at 01/03/24 0957 atorvastatin (LIPITOR) tablet 80 mg 80 mg oral QHS Meghan Woo DO 80 mg at 01/02/24 2151 budesonide-formoterol HFA (SYMBICORT) 160-4.5 mcg/actuation inhaler 2 Puff 2 Puff inhalation BID Meghan Woo DO 2 Puff at 01/03/24 0946 calcium carbonate (TUMS) tablet 500 mg (200 mg elemental calcium) 1 Tablet 1 Tablet oral Q6H PRN Meghan Woo DO dorzolamide (TRUSOPT) 2 % ophthalmic solution 1 Drop 1 Drop left eye BID Meghan Woo DO 1 Drop at 01/03/24 0958 enoxaparin (LOVENOX) injection 40 mg 40 mg subcutaneous DAILY Meghan Woo, DO 40 mg at 01/03/24 0957 lactulose (CHRONULAC) 20 gram/30 mL solution 30 mL 30 mL oral QID Ra Ramsey MD latanoprost (XALATAN) 0.005 % ophthalmic solution 1 Drop 1 Drop both eyes QHS Meghan Woo, DO 1 Drop at 01/03/24 0046 levothyroxine (SYNTHROID) tablet 88 mcg 88 mcg oral DAILY Meghan Woo DO 88 mcg at 957 ondansetron (PF) (ZOFRAN) injection 4 mg 4 mg intravenous Q4H PRN Meghan Woo DO pantoprazole (PROTONIX) tablet 40 mg 40 mg oral DAILY Meghan Woo, DO 40 mg at 01/03/24 0957 polyethylene glycol 3350 (MIRALAX) packet 17 g 17 g oral Daily PRN Meghan Woo DO rifAXIMin (XIFAXAN) tablet 200 mg 200 mg oral TID Ra Ramsey MD traMADol (ULTRAM) tablet 50 mg 50 mg oral Q6H PRN Meghan Woo DO Current Status: Cognitive Status: Patient was alert and cooperative during evaluation. Respiratory Status: Respiratory status was judged to be WFL to support oral feeding. Clinical Swallow Evaluation: Patient/Family: consented to completing the clinical bedside swallow exam. Oral Peripheral Motor Exam: Face: Mild Right sided facial droop. Lips: Adequate strength and range of motion Tongue: Mildly reduced coordination Velum: Unable to view during the evaluation. Dentition: Adequate dentition. Laryngeal Excursion: Within functional limits with anterior tipping Speech Intelligibility: Speech with functional intelligibility. No deficits noted. Vocal Quality: Patient presents with a clear vocal quality. Cough: Patient presents with a weak, not effective cough. Positioning: Sitting in a chair during the evaluation. Consistencies Tested: was assessed with thin liquids, puree foods, and solid foods. Methods of Delivery: Patient was able to self administer all items without BROADCAST PROGRAM DIRECTOR assistance using a spoon, cup and straw. Oral Phase Findings: Patient presents with oral phase deficits characterized by oral residue Pharyngeal Phase: Patient presents with pharyngeal phase deficits as suggested by delayed swallow response and signs/symptoms suggestive of laryngeal penetration/aspiration characterized by S&S intermittent throat clearing..Other: Throat clearing noted 2x when talking with family during meal. Pt has chronic abdominal pain, portal venous thrombus for which she is managed by [facility] gastroenterology. Patient/Family Education: Topic: Patient/Family education and training was completed today including the role of Speech-Language Pathology and results of today's exam/recommendations. Learner: patient and family Method of Education: Verbal Barriers to Learning/Education: none Patient: was able to verbalize understanding of information and needs further instruction and education Family: was able to verbalize understanding of information Assessment /Clinical Impressions: is a 73 y.o. female admitted with aphasia due to acute CVA . A clinical swallow evaluationwas completed today by Speech Language Pathology secondary to concerns for oropharyngeal dysphagia,and risk of laryngeal penetration/aspiration. currently presents with a mild oropharyngeal phase dysphagia characterized by oral residuals and intermittent throat clearing when talking during meal. Etiology of dysphagia is likely age related, may be impacted by current slight right side weakness. Pt demonstrated adequate mastication and oral clearance this date. remains at risk of aspiration/airway compromise including obstruction, congestion and infective sequelae of aspiration. Actual risk of acquiring aspiration pneumonia if endotracheal aspiration occurs is considered Mild based on the presence of the following factors which research indicates predisposes an individualto aspiration pneumonia: need to take a large number of medications and evidence of reduced pulmonary function. Feel pt continues to be appropriate for regular diet at this time. No further BROADCAST PROGRAM DIRECTOR for swallowing indicated. Pt to be assessed by BROADCAST PROGRAM DIRECTOR for speech/language concerns. Plan /Recommendations: I do not anticipate further BROADCAST PROGRAM DIRECTOR intervention/managements needs for dysphagia in this setting. Please feel free to reconsult if patient demonstrates poor tolerance of recommendations listed below. Pt has order for speech/language evaluation which will be completed by BROADCAST PROGRAM DIRECTOR. Referrals: Pt has order for Speech/language evaluation which will be completed by BROADCAST PROGRAM DIRECTOR. BROADCAST PROGRAM DIRECTOR follow-up: Not indicated in this setting for dysphagia. BROADCAST PROGRAM DIRECTOR to follow up with evaluation of speech/language. Discharge Plan: per care team . SARAH Norton 01/03/2024 15:20 * Ra Ramsey MD - 01/03/2024 1504 EDT [facility] Medicine Progress Note Service Date: 01/03/24 Admit Date: 01/02/2024 19:21 Hospital Day: 1 Amalia Jones is a 73 y.o. female presenting with chief complaint: Altered mental status/expressive aphasia 24 Hour Events: Admitted with concern for acute CVA. MRI brain done today Subjective She states she is feeling better. No headache no focal weakness reported presently, though PT notedsome global weakness, and right greater than left weakness, as well as impaired coordination. Her partner is at the bedside, he states that she does seem substantially better from the standpoint of her speech. Yesterday she was unable to say any more than a few single words. Today, she has been conversing, and better able to verbalize. Review of Systems: A full 10-point review of systems was conducted, and was negative except for pertinent positives as above. Objective Vital Signs Temp: [36.4 ??C (97.5 ??F)-36.8 ??C (98.2 ??F)] ; Heart Rate: [57 BPM-92 BPM] , Pulse: [72] ; BP: (122-168)/(55-120) ; Resp: [11-20] ; SpO2: [94 %-98 %] I&O I&O By Type - 3 Shifts Including Current In: - Out: 1100 [Urine:1100] PHYSICAL EXAM Gen: AAOx3, NAD. Nontoxic in appearance. Partner at bedside. Forgetful. HEENT: EOMI, MMM, no scleral icterus Neck: Supple CV: RRR, no m/r/g Pulm: CTAB, good air movement, no w/r/r Abd: Soft, ND, no HSM. She does have epigastric abdominal pain with palpation, reproducible. However, patient and family confirm that this is quite chronic, nothing at all new for her. GI: +BS Extrem: Warm and well perfused, no cyanosis or edema. : Chou absent Skin: No acute appearing rash. Warm and dry. Sacrum not examined Psych: Normal mood and affect Neuro: She is able to say the sentence no if's and's or bouts, however she did have more trouble saying the sentence leaping lizards looking lollipops. Is able to say maybe 70% of the sentence. No dysarthria. Seems to have some halting speech/expressive aphasia at times. She is moving all extremities equally, 5-5 strength, nonfocal. Meds: Current Facility-Administered Medications: acetaminophen (TYLENOL) tablet 650 mg, 650 mg, Q6H PRN aspirin chewable tablet 81 mg, 81 mg, DAILY atorvastatin (LIPITOR) tablet 80 mg, 80 mg, QHS budesonide-formoterol HFA (SYMBICORT) 160-4.5 mcg/actuation inhaler 2 Puff, 2 Puff, BID calcium carbonate (TUMS) tablet 500 mg (200 mg elemental calcium) 1 Tablet, 1 Tablet, Q6H PRN dorzolamide (TRUSOPT) 2 % ophthalmic solution 1 Drop, 1 Drop, BID enoxaparin (LOVENOX) injection 40 mg, 40 mg, DAILY latanoprost (XALATAN) 0.005 % ophthalmic solution 1 Drop, 1 Drop, QHS levothyroxine (SYNTHROID) tablet 88 mcg, 88 mcg, DAILY ondansetron (PF) (ZOFRAN) injection 4 mg, 4 mg, Q4H PRN pantoprazole (PROTONIX) tablet 40 mg, 40 mg, DAILY polyethylene glycol 3350 (MIRALAX) packet 17 g, 17 g, Daily PRN traMADol (ULTRAM) tablet 50 mg, 50 mg, Q6H PRN Allergies: Oxycodone-aspirin, House dust, Kiwi, Oxycodone-acetaminophen, and Prednisone Results for orders placed or performed during the hospital encounter of 01/02/24 (from the past 24 hour(s)) UA CASCADE TO CULTURE Result Value Ref Range Color UA Yellow Colorless, Yellow Clarity UA Clear Clear Glucose UA Negative Negative mg/dL Bilirubin UA Negative Negative Ketones UA Negative Negative Specific Canadian, Urine <=1.005 1.001 - 1.030 Blood UA Negative Negative pH, UA 7.5 5.0 - 8.0 Protein UA Negative Negative mg/dL Urobilinogen UA 0.2 0.2-1.0 mg/dL mg/dL Nitrite UA Negative Negative Leukocyte Esterase UA Negative Negative COMPLETE BLOOD COUNT AND DIFFERENTIAL Result Value Ref Range WBC 4.28 4.00 - 12.40 K/cmm RBC 4.46 3.86 - 5.04 M/cmm Hemoglobin 14.5 11.6 - 15.2 g/dL HCT 42.0 34.9 - 44.4 % MCV 94 81 - 98 fL MCH 32.5 26.7 - 33.3 pg MCHC 34.5 32.1 - 35.9 g/dL RDW-CV 13.2 <14.7 % RDW-SD 45.7 <50.4 fl PLT 166 141 - 377 K/cmm MPV 9.2 (L) 9.5 - 12.7 fL % Neutrophils 49.1 % % Lymphocytes 27.8 % % Monocytes 13.6 % % Eosinophils 7.9 % % Basophils 1.4 % % Immature Grans 0.2 <0.9 % Absolute Neutrophils 2.10 (L) 2.20 - 8.85 K/cmm Absolute Lymphocytes 1.19 1.09 - 3.30 K/cmm Absolute Monocytes 0.58 0.10 - 0.80 K/cmm Absolute Eosinophils 0.34 0.03 - 0.61 K/cmm ABS Basophils 0.06 0.01 - 0.11 K/cmm Absolute Immature Grans 0.01 0.00 - 0.06 K/cmm Type of Differential: Auto COMPREHENSIVE METABOLIC PANEL (CMP) Result Value Ref Range Sodium 139 136 - 145 mmol/L Potassium 4.2 3.5 - 5.0 mmol/L Chloride 106 96 - 110 mmol/L CO2 Total 25 22 - 32 mmol/L Glucose 104 (H) 70 - 99 mg/dl BUN 15 10 - 26 mg/dL Creatinine 0.43 (L) 0.52 - 1.04 mg/dL eGFR 103 >60 mL/min/1.73m2 Total Protein 6.5 6.3 - 8.2 g/dL Albumin 4.1 3.4 - 4.9 g/dL Alkaline Phosphatase 137 (H) 38 - 126 U/L AST 53 (H) 15 - 46 U/L ALT 33 <35 U/L Bilirubin, Total 1.3 <1.4 mg/dL Calcium 9.5 8.5 - 10.5 mg/dL Albumin/Globulin Ratio 1.7 1.0 - 2.5 Anion Gap 8 5 - 14 mmol/L MAGNESIUM Result Value Ref Range Magnesium 1.8 1.7 - 2.8 mg/dL TROPONIN I Result Value Ref Range Troponin I (ng/mL) <0.034 <0.034 ng/mL ETHANOL, BLOOD Result Value Ref Range Ethanol, Blood <10 <10 mg/dL mg/dL AMMONIA Result Value Ref Range Ammonia 20 <34 umol/L HOLD BLUE TOP Result Value Ref Range Hold Hold POCT GLUCOSE, INTERFACED Result Value Ref Range Glucose, POC 90 70 - 100 mg/dL POCT BLOOD GAS, CG8 I-STAT Result Value Ref Range pH, Venous, i-STAT 7.42 (H) 7.31 - 7.41 pCO2, Venous, i-STAT 42 41 - 51 mmHg pO2, Venous, i-STAT 43 30 - 50 mmHg TCO2, Venous, i-STAT 29 (H) 22 - 28 mmol/L O2 Saturation, Venous, i-STAT 79 60 - 85 % Sodium, Venous, i-STAT 140 136 - 145 mmol/L Potassium, Venous, i-STAT 4.1 3.5 - 5 mmol/L Hematocrit, Venous, i-STAT 36 35 - 44 % Ionized Calcium, Venous, i-STAT 1.22 1.12 - 1.32 mmol/L Base Excess(+) / Deficit(-), Venous, i-STAT 3 -2 - 3 mmol/L BASIC METABOLIC PANEL (BMP) Result Value Ref Range Sodium 137 136 - 145 mmol/L Potassium 3.7 3.5 - 5.0 mmol/L Chloride 107 96 - 110 mmol/L CO2 Total 25 22 - 32 mmol/L Anion Gap 5 5 - 14 mmol/L Glucose 71 70 - 99 mg/dl Calcium 8.3 (L) 8.5 - 10.5 mg/dL BUN 11 10 - 26 mg/dL Creatinine 0.40 (L) 0.52 - 1.04 mg/dL eGFR 104 >60 mL/min/1.73m2 COMPLETE BLOOD COUNT Result Value Ref Range WBC 3.31 (L) 4.00 - 12.40 K/cmm RBC 3.92 3.86 - 5.04 M/cmm Hemoglobin 12.6 11.6 - 15.2 g/dL HCT 37.5 34.9 - 44.4 % MCV 96 81 - 98 fL MCH 32.1 26.7 - 33.3 pg MCHC 33.6 32.1 - 35.9 g/dL RDW-CV 13.2 <14.7 % RDW-SD 46.2 <50.4 fl PLT 117 (L) 141 - 377 K/cmm MPV 9.5 9.5 - 12.7 fL MAGNESIUM Result Value Ref Range Magnesium 1.8 1.7 - 2.8 mg/dL LIPID PROFILE (INCLUDES CHOLESTEROL, TRIGLYCERIDES, HDL, LDL) Result Value Ref Range Cholesterol 158 <200 mg/dL HDL 71 >=50 mg/dl LDL, Calculated 81 <160 mg/dL Triglyceride 32 <=150 mg/dL Chol/HDL Ratio 2.2 See Note Non HDL Cholesterol 87 <160 mg/dL TRANSTHORACIC ECHO (TTE) COMPLETE Result Value Ref Range Mitral deceleration time 257 ms LV Diastolic Volume 76 mL LV Systolic Volume 24 mL Mitral A-wave peak velocity 1.1 m/s Mitral E-wave peak velocity 1.0 m/s Mitral peak gradient, D 4 mmHg Aortic peak gradient, S 14 mmHg Aortic valve peak velocity, S 1.9 m/s LV ejection fraction, 1-p A4C 72 % LV ejection fraction, 1-p A2C 73 % Aortic root ID 2.8 cm Ascending aorta ID, a-p 3.1 cm EF 73 % LV ID, ES, PLAX 2.6 2.1 - 4.0 cm LV PW thickness, ED, PLAX 0.9 0.6 - 1.1 cm LV ID, ED, PLAX 4.1 3.5 - 6.0 cm LV E/e', lateral 7.5 LA volume, ES, BP 48.0 ml LA Atrial Length A2C 5.4 cm LA volumes, ES, A4C 44.0 ml LA ID/bsa, A-P 2.2 cm/m2 LA ID, A-P, ES 3.9 cm LV end-diastolic volume, 1-p A4C 62 ml LV end diastolic volume 1-p A2C 66 ml LA/aortic root ratio 1.39 LV E/e', lateral 12.9 LV E/e', medial 13.7 LV e', lateral 7.50 cm/s LV e', medial 7.10 cm/s IVS thickness, ED, PLAX 0.9 cm LV E/e', average 13 Mitral E/A ratio, peak 0.90 -All labs reviewed independently Recent Imaging: MRI brain today: IMPRESSION 1. No acute intracranial abnormality is detected. 2. Mild cerebral global volume loss and scattered high T2 signal white matter changes. This patternis nonspecific however most commonly reflects small vessel ischemic disease of aging. Medical Decision Making: Chart review. Discussed with rehab services, care management, family. Discussed with admitting physician. Reached out to neuro nursing education consultant. Assessment Amalia Jones is a 73 y.o. female with mild cognitive impairment, chronic abdominal pain, portal venous thrombus for which she is managed by [facility] gastro[facility]ology. She presented with acute onset of confusion, and expressive aphasia. Was admitted for acute CVA. MRI without evidence of CVA. Plan # Neuro: #Acute metabolic encephalopathy -Initially suspected acute CVA. Initial NIH score was 6. CT head was unremarkable, and MRI without acute ischemic process. -Symptoms have improved, but I am not convinced they have resolved entirely, so TIA unlikely. -With negative brain MRI calling into question the possibility of CVA, will request neurology consult to evaluate -Check TSH, B12 -Presently I do not see any acute active infectious process contributing, but will monitor closely # Hypothyroidism -Continue BUSINESS MANAGEMENT ANALYST hypothyroidism # Hypertension -BUSINESS MANAGEMENT ANALYST losartan held upon admission to allow permissive hypertension. Will continue to hold for now, as blood pressures are appropriate # Chronic portal vein thrombosis -Consideration of mild hepatic encephalopathy. Had been on rifaximin in the past. Consider that herpresentation may have been secondary to hepatic encephalopathy. Will resume rifaximin, and also initiate lactulose. Diet: DIET REGULAR VTE Prophylaxis: Pharmacologic Prophylaxis: Enoxaparin (Lovenox) 40 mg SQ daily Discharge Plan: snf facility/Subacute rehab currently PT is recommended acute rehab versus subacute rehab. Will have to see how her symptoms evolve CODE STATUS: Full Code I spent > 50 minutes caring for this patient today, including chart review, time at bedside discussing and examining patient, discussing with members of the medical team, review of data and imaging as outlined above, developing and implementing treatment plan as outlined above, documentation. Includes multiple discussions as noted above, evaluating imaging Ra Ramsey MD 01/03/2024 15:04 * Charley Russell - 01/03/2024 1128 EDT Initial Case Management/Social Work Assessment and Discharge Plan/Readmission Risk Assessment REASON FOR ADMISSION: Aphasia due to acute cerebrovascular accident (CVA) ([facility]) Patient understands reason for admission: Yes PATIENT INFO VERIFIED: Contact Info, Address, PCP Type of housing (single family, condo, apartment, skilled nursing, single room occupancy, [facility] funded hotel room, group half-way) - Camper attached to house ([address] [place] [address]) Who does the patient live with? , son and family Does the patient have access to their own bedroom/bathroom/kitchen - or is it shared with others? Shared Name of housing complex (ex [employer] [facility], [facility], etc)- n/a Housing Authority/Managing Organization - n/a Community Care Providers (rn case mgr, [facility] nurse, etc) name and contact information- n/a Discharge Delay Risk Assessment 2. Hospitalization: Unplanned admission Major Barrier day total 1-6: 1 Minor or major discharge risk delay(s) present?: No discharge barriers identified Does the patient meet criteria to be escalated?: No LIVING ARRANGEMENTS AND ACCESSIBILITY ISSUES: Living Arrangements: Family members, Spouse / significant other Levels: 1 Stairs to enter: 3 Handicap access: Railings into home, Railings to upstairs Bathroom located on bedroom level?: Yes What in home social supports are available to the patient? Family member(s), Spouse / significant other Is 07/12 care available? No ADVANCED DIRECTIVES, POA &/or COLST IN PLACE: Healthcare Directive: Yes, patient has advance directive for healthcare treatment Type of Healthcare Directive: Health care treatment directive Copy in Chart: No, copy requested from family DIRECTIVES FOR FINANCES: Directive For Finances: No TRANSPORTATION: Transportation: Family CULTURAL, SAMARITAN and/or LANGUAGE factors affecting health care/discharge planning: Spiritual/Cultural Requests: Other (Comment) (missionaries if possible) Language/Literacy Needs Do you need us to provide any communication aids or devices?: No Insurance Information: Medical Insurance: Yes Type of insurance: Medicare Medicare type: A, B Referred to patient financial services: No Nutrition: DISCHARGE RISK ASSESSMENT: Cognitive impairment Total # selected above: Score of 1 - 2: This patient is at LOW RISK for re-hospitalization Tentative plan to address the risk of re-hospitalization for those at HIGH MODERATE RISK: Bring risk factors to attention of team to be addressed RAPT TOOL: Age: 66-75 (73 years old) Gender: Female Ambulation distance: 2 or more blocks (600ft) Gait device: None Community Services: Home health, MOW, SASH-none of one time a week Will you live with someone who will care for you?: Yes RAPT Tool Score: 10 Expected Discharge Disposition: Home Health Services SBIRT: FUNCTIONAL STATUS: Activities patient requires assistance: None Assistive Devices: Cane, Walker Walker type: Front wheel COMMUNITY RESOURCES/SUPPORTS: Primary Care Provider: Jacinta Black PCP Verified: Specialists: Cardiology, Pulmonary, Other (Gastroentrology) Type of Home Health Services: None DME Provider: Pharmacy: [id number] - [place], [place] - [address] [place] [address] Home Health: Other: POST HOSPITAL TRANSITION PLAN: Patient and her were able to verify demographics, PCP, contacts, and noted she has an Advanced Directive but not sure where copy is - is not in registry. Patient noted her would be her HCA and at some point is interested in filling out a new one - declined support with this at this time. CM went over IM/appeal process which patient and verbalized understanding. Patient lives in a camper ([address], [place], [place]) attached to her sons family's home. Patient and her live in [place] half the year and [place] the other half. Patient has three steps into the camper with a grab bar and one step to the bedroom with no railing. Patient has a cane and front wheeled walker with no other DME's or community supports to note. Patient is independent at baseline with ADL's and mobility with no DME use. Patient is active with Gastroenterology, Cardiology, and Pulmonology in [place] and [place]. Given choice of agency, patient chose [facility] if recommended. Patient VIKAS is tomorrow pending medical clearance. Patient's would be able to provide transportation. CM will continue to follow. CHARLEY RUSSELL 01/03/2024 11:28 * Felicia Beyer, PT - 01/03/2024 1016 EDT [facility] Inpatient Rehabilitation Services [facility] Physical Therapy Initial Evaluation Note Date of Service: 01/03/2024 Diagnosis: CVA Date of Onset: 01/02/24 Referring Provider: Meghan Woo DO Reason for Referral: Evaluate and treat Precautions: Mobility Precautions Activity: Fall risk/precautions, Ambulate with assistive device, Up with assistance SUBJECTIVE: Patient is currently having difficulty with: Mobility Patient/caregiver states: I feel like I need to pee. Patient and Caregiver Goals: Return to my normal life Subjective Information Reported by: Patient Pain Evaluation: reports discomfort with catheter placement. Medical/Surgical History: Current: Patient Active Problem List Diagnosis Acute cerebrovascular accident (CVA) ([facility]) Aphasia due to acute cerebrovascular accident (CVA) ([facility]) Past: History reviewed. No pertinent past medical history. History reviewed. No pertinent surgical history. HPI: From DO HPI: Amalia Jones is a 73 y.o. female with mild cognitive impairment, chronic abdominal pain, portal venous thrombus for which she is managed by [facility] gastroenterology presents emergency department with sudden onset confusion, aphasia. The patient woke this morning in her normal state of health. She went to [employer]. When she returned from [employer] she took a nap, which is not unusual forher. Upon waking from her nap, the patient was having a difficult time speaking and could only see the word no. She was agitated. Her family states that they had to carry her outside because she refused to go to the emergency room. She was able to ambulate and seems to be able to move her arms equally. The patient can only say ouch, no, home, and occasionally yes. Her family states that her saying yes is actually an improvement. The patient seems to be able to understand most questions and is actually able to type answer onto her phone. The patient is right-handed. She has no history of stroke. She does have family history of stroke with her father. Patient has no fevers or chills. No recent illness. No history of blood clots. No history of coronary artery disease. Patient was given 10 mg of Zyprexa in the emergency department as she was agitated, but is now calm and cooperative. Patient is complaining of pain from her Chou catheter which was placed that she was continuously stating that she had to go to the bathroom. Urinalysis is unremarkable. 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 Basic Activities of Daily Living - General Level of Assistance Throughout: Independent Instrumental Activities of Daily Living - General Level of Assistance Throughout: Independent Home Environment: Safety Assessment / Living Environment Home environment: Camper ([employer]th wheel) Entrance Stairs: Stairs to enter without rails # of Steps to Enter: 3 Indoor Stairs: Indoor stairs without railings (Single steps to negotiate various rooms in camper) None Support Person: Spouse Lives With: Spouse OBJECTIVE: Patient Profile: Patient is a 73 y.o. female admitted on 01/02/2024 secondary to Aphasia due to acute cerebrovascular accident (CVA) ([facility]) The patient lives at [address] [place] [address] Arousal, Attention, and Cognition: Orientation: Alert Oriented to person, knows this is a hospital but didn't know where, knew month/year. May have some difficulty with word finding. Single word answers/tends to rely on partner for response. Cardiopulmonary: Seated EOB: BP 149/81, HR 65 bpm, Sp02 95% on RA. Seated in recliner: BP 126/74, HR 60 bpm, Sp02 95% on RA. Reported initial dizziness with transition to sitting I'm moving; improved and asymptomatic with the rest of movement. Reports tends to happen with her gardening at home. Integumentary/Anthropometric: Palpation/Observation: Reports hx of B edema. None vs. Trace noted today. Reports feeling her legs look big. Posture: Forward head and Protracted shoulders. Mild R facial droop Range of Motion: Active Range of Motion: Limited BLE/BUE with gross weakness. Able to achieve full UE flexion R and L shoulders. BLEs WFL for functional mobility. Limited B (R>L) into hip flexion in supine. Muscle Performance: Strength: Able to perform min SLR BLE (increased difficulty with RLE; hold ~ 3-5 seconds); knee ext3-/5 with difficulty sequencing hold of contraction with cueing. DF B 5/5. Sensation, Reflexes, and Nerve Integrity: Light Touch Sensation: Lower Quarter: Denies numbness/tingling BLEs Neuromotor Function/Development: Delayed finger to nose B (with dysmetria noted on R). Slow to follow commands. Balance: Balance deficits observed. Mod assist in RW to support transfers. Seated EOB mod/ind without instability. Bed Mobility and Transfers: supine to sit: min assist with HOB raised and use of bed rail sit to stand: mod assist stand to sit: mod assist bed to chair: min assist x2 with RW Gait and Stairs: NT due to fatigue with transfer Informed Consent: The patient consented to the physical therapy evaluation. The patient agrees to and understands thephysical therapy treatment plan and goals. Interventions Completed Today: Time: 0900 Total Treatment Time (minutes): 50 Timed Code Treatment Minutes: 15 Therapy Session: A therapy director was present for the physical therapy session, The patient's family was present for the physical therapy session Procedures: Therapeutic activities Therapeutic Activities Minutes: 15 Therapeutic Activities 1: Functional transfer training with RW; cueing for APRIL, hand placement/sequencing to complete transfer. Performed STS with mod assist to RW. Pre-gait activities with weightshifting, mini-marche. Min evidence of RLE buckling with min/mod assist to support. Visual demonstration SPT transfer with controlled turning. Performed with min assist x2 to recliner at bedside. Cueing hand placement, sequencing, positioning. Patient Status at the End of the Therapy Session The patient was left in the: recliner with the: Call dietz in reach Patient Status at the End of the Therapy Session Comments: present Additional information may be available in the medical record. Patient/Family Education: Activity/Work/Community: Pacing Braces and Equipment: Use of assistive device Medical Information/Signs and Symptoms: Vital sign response Mobility, Transfers, and Gait: Mobility recommendations, Functional transfers, Bed mobility Recommendations: Discharge recommendations/planning, Follow-up services Safety: Safety, Fall prevention Therapy Specific: Role of physical therapy, Treatment plan/goals ASSESSMENT: Physical Therapy Diagnosis: The patient presents with a physical therapy diagnosis of: Impaired gait, Impaired mobility Physical Therapy Assessment: Patient is 73 year old female admitted to [facility] with sudden onset confusion and aphasia who is now being worked up for acute CVA; MRI pending. Patient demonstrated global weakness with mobility (R sided>L) with impaired coordination and stability deficits in standing on this evaluation. Patient ty pically independently mobile without AD and is presenting far below functional baseline. Anticipategood progress with PT intervention to support mobility progression with good tolerance expected. Initial recommendation for AR at discharge with continued evaluation pending mobility and tolerance progression. The patient's prior level of function was: independent Current status is: below prior level of function The patient's rehabilitation potential is: good Physical Therapy is medically necessary to: address these body structure/function impairments, activity limitations, and participation restrictions, establish and progress mobility/exercise and provide recommendations for staff and safe discharge planning, facilitate return to prior level of function, improve safety and independence The patient: requires acute rehabilitation as next level care for multiple therapy disciplines and is expected to tolerate an intensity of 3 hours of therapy at a minimum of 5 days per week. Short-Term Goals: Time Frame: 10 Days: 01/13/24 Goal: Patient will perform bed mobility mod/ind. Status: Initiated Goal: Patient will perform functional transfers mod/ind with LRAD. Status: Initiated Goal: Patient will ambulate x 150 ft mod/ind with LRAD. Status: Initiated Goal: Patient will ascend/descend two steps without rails to negotiate home environment. Status: Not assessed, Initiated Long-Term Goals: Goals: Not Applicable PLAN: Frequency: Times per week Times Per Week: 7 Intensity: 15-45 minutes Duration: Duration of hospitalization Interventions May Include: Gait training, Therapeutic activities, Therapeutic exercise, Self-care/home management, Neuromuscular re-education Patient/Family Education: Discharge planning, Equipment, Falls Prevention, Patient education, Recommendations, Role of physical therapy/occupational therapy/rehabilitation, Symptom management, Safety, Family/caregiver education Next Session to Include: Progress gait/mobility training as tolerated. Discharge Recommendations: Recommended Discharge Destination: Acute rehabilitation Recommended Discharge Destination Comments: vs. KODY pending progression of activity tolerance. Therapy Specific Services: Physical therapy, Occupational therapy, Speech language pathology Team Communication: Communicated with: Nurse, Physician, risk manager When: Prior to therapy session, After therapy session By: [id number] communication, Other (Clinical rounds.) About: Patient status. Mobility recommendations. Discharge recommendations. Felicia Beyer, PT 01/03/2024 10:30 * Linda Mills RT - 01/03/2024 0946 EDT Patient tolerated Symbicort MDI well. Patient tolerated Symbicort MDI well. Patient rinsed mouth after treatment. Patient achieved an IS goal of 2457-5128 ml x 10 with a 2-3 second SMI. Patient demonstrated an excellent technique. [id number]-[id number], RR-15-12, SPO2 noted at 95-97% on room air, and BBS-diminished but clear. No change in BBS after treatment. Patient in no distress at this time. RT will continue to monitor. * Linda Mills RT - 01/03/2024 0813 EDT Send a missing medication request to pharmacy. * Che Solano, NEL - 01/03/2024 0621 EDT Amalia Jnoes admitted with aphasia dt CVA from the ED to via cart/stretcher. Patient arrives in fair condition. Patient transferred to bed with staff help. BP 141/67 (BP Cuff Location: Leftarm, BP Patient Position: Semi fowlers) Pulse 72 Temp 36.6 ??C (97.9 ??F) (Oral) Resp 11 Ht157.5 cm (62) Wt 76.8 kg (169 lb 6.4 oz) SpO2 96% BMI 30.98 kg/m?? Patient oriented to room,call dietz, and items within reach. Second RN Skin Assessment completed with Bette Mendieta RN. See flowsheets for full patient assessment. CHE SOLANO RN When pt got to the floor at about 2330, she was speaking in one word sentences and clearly was having difficulty finding words. After about an hour pt was having a normal conversation with this nurseand her , no difficulty finding words or expressing her needs. Pt stating she has RUQ tenderness that is chronic and that she takes prn tramadol at home for this but hasn't taken it for a weekand a half because she tries, to stay away from it and pt stated she has a high pain tolerance. MD made aware and ordered prn tramadol. Stroke neuros taken, please see flowsheets. Med given per JUL. Shift assessment completed. Chou in place and patent, draining straw colored urine. Tele monitoring-NSR. Pt turn and repositioning self in bed frequently. A+OX3. Pleasant and cooperative. at bedside, support provided. Hourly rounding performed by staff. Bed alarm on for safety. Safety maintained. FOUR EYES SKIN ASSESSMENT Four Eyes skin assessment was performed on admission to the unit by Che Solano RN and Bette Mendieta RN. Patient has the following devices at the time of this assessment: Peripheral IV. Device related pressure injury present? No Areas of concern: Fill in detail for areas of concern [] Occiput [] Nose [] Ear [] Lip [] Scapula [] Spinous process [] Shoulder [] Elbow [] Iliac crest [] Sacrum/coccyx [] Ischial tuberosity [] Trochanter [] Knee [] Malleolus [] Heel [] Toe [x] Other: bruising to LUE noted Last Elijah Score: 17 01/03/2024 1:07 * Rico Diaz RT - 01/02/20242117 EDT Respiratory Consult/Progress Note Indications for Respiratory therapy: Hx of Asthma Data Vitals: Heart Rate: 72 BPM, Resp: 20, SpO2: 96 % FIO2/O2 Device: , , O2 Device: None, RT Orders: BID Symbicort Protocol Scoring: Bronchodilator/Inhalation Therapy Frequency Bronchodilator - Clinical Indications: History of bronchospasm Breath Sounds: Clear Response: No change / no treatment Pulse: <100 Resp Rate: <18 SOB: None Total Score: 0 Comment:: prn Frequency Based On Total Score: 0-4 = PRN 5-7 = QID 8-10 = Q4H 11-12 = Q2H Airway Clearance Therapy Frequency Airway Clearance - Clinical Indications: No clinical indications Breath Sounds: Clear / diminished Sputum: Small (tsp) / None Consistency: None Cough Effort: Strong/ non-productive Color: None Total Score: 0 Comment: prn Frequency Based On Total Score: 0-3 = PRN 4-6 = QID and PRN 7-9 = Q4H and PRN 10-11 = Q2H and PRN Hyperinflation Therapy Frequency Hyperinflation - Clinical Indications: No clinical indications Breath Sounds: Clear Surgery: No X-Ray / Atelectasis: No O2 Requirements: O2 at baseline Mobility Status: In bed Total: 3 Comment: prn Frequency Based On Total Score: 0-3 = PRN 4-6 = QID and PRN 7-9 = Q4H and PRN 10-12 = Q2H and PRN Action/Events Respiratory events; 20:03 Initial consult completed. No respiratory intervention requires at this time. Response/Results Weaning and Toleration of treatments; Patient tolerated well. RT COSMO 01/02/24 documented in this encounter H&P Notes * Meghan Woo DO - 01/02/20242115 EDT Hospital Medicine Admission History & Physical Admit Date: 01/02/24 Primary Care Provider: Jacinta Black Chief Complaint: Chief Complaint Patient presents with Altered Mental Status Patient comes in with AMS from home. reports that she went down for a nap around 2-3 after eating and woke up confused about where she was. Kept repeating herself. States over and over that she needs to pee, and often saying the word no. HPI Amalia Jones is a 73 y.o. female with mild cognitive impairment, chronic abdominal pain, portal venous thrombus for which she is managed by [facility] gastroenterology presents emergency department with sudden onset confusion, aphasia. The patient woke this morning in her normal state of health. She went t o sabianist. When she returned from sabianist she took a nap, which is not unusual for her. Upon waking from her nap, the patient was having a difficult time speaking and could only see the word no. She was agitated. Her family states that they had to carry her outside because she refused to go to the emergency room. She was able to ambulate and seems to be able to move her arms equally. The patient can only say ouch, no, home, and occasionally yes. Her family states that her saying yes is actually an improvement. The patient seems to be able to understand most questions and is actually able to type answer onto her phone. The patient is right-handed. She has no history of stroke. She doeshave family history of stroke with her father. Patient has no fevers or chills. No recent illness. No history of blood clots. No history of coronary artery disease. Patient was given 10 mg of Zyprexain the emergency department as she was agitated, but is now calm and cooperative. Patient is complaining of pain from her Chou catheter which was placed that she was continuously stating that she had to go to the bathroom. Urinalysis is unremarkable. Review of Systems Review of systems not obtained due to patient factors: Unable to speak Medical History: 1. Hypertension 2. Portal vein thrombosis 3. Lower extremity edema 4. Hypothyroidism 5. Cognitive impairment 6. Chronic epigastric pain 7. Asthma 8. Glaucoma Past Surgical History: History reviewed. No pertinent surgical history. Social History: Social History Tobacco Use Smoking status: Never Smokeless tobacco: Never Substance Use Topics Alcohol use: Not on file Family history: Problem Relation Name Comments Breast Cancer Sister No Known Mother No Known Father No Known Daughter No Known Maternal Grandmother No Known Maternal Grandfather No Known Maternal Aunt No Known Cousin No Known Brother No Known Paternal Grandmother No Known Paternal Grandfather No Known Son No Known Child No Known Maternal Uncle No Known Paternal Aunt No Known Paternal Uncle No Known Grandchild No Known Other BRCA1 Negative Neg Hx BRCA1 Positive Neg Hx BRCA2 Negative Neg Hx BRCA2 Positive Neg Hx Breast Cancer (second onset) Neg Hx Genetic Disease Carrier Neg Hx Ovarian Cancer Neg Hx Home Meds: Home medications reviewed and recorded in the medical record Allergies: Allergies Allergen Reactions Oxycodone-Aspirin Other (See Comments) Patient states it makes her very dizzy Severe dizziness Patient states it makes her very dizzy Severe dizziness House Dust CIS - Allergic Rhinitis Kiwi Other (See Comments) Oxycodone-Acetaminophen Other (See Comments) Dizziness Prednisone Other (See Comments) Other reaction(s): Unknown Objective Vitals Temp: [36.8 ??C (98.2 ??F)] , Heart Rate: [72 BPM-92 BPM] , Pulse: [72] , Resp: [18-20] , BP: (142-168)/(104-120) , SpO2: [96 %-98 %] , Numeric Pain Level (Scale 1-10): -- Weight: There is no height or weight on file to calculate BMI. Physical Exam Constitutional- Awake, NAD. Family present at bedside. EYES- Anicteric sclerae, pupils are equil, no lid lag. Extraocular movements intact. No nystagmus. HENT- External ears and nose are atraumatic. Mouth with moist mucous membranes, normal soft and hard palate. Respiratory- CTAB. No respiratory distress or retractions. No use of accessory muscles. Cardiovascular- RRR, no m/g/r. No lower extremity peripheral edema. Pedal pulses present and equal. Gastrointestinal- Soft, NT/ND. Positive BS. No HSM. Musculoskeletal- Spine is straight, no gross joint deformities. Neck is supple. No cyanosis of nails. Neurologic-mild right-sided facial droop, most pronounced at the mouth. Mild right upper and right lower extremity weakness. Patient can hold right leg against gravity for approximately 3 seconds 4 drops to the bed. Left arm strength 4 out of 5. Finger-nose intact. Patient is slow to follow commands. Patient with expressive aphasia, can speak in one-word sentences home, ouch, no, occasionally says yes Additional Information for Stroke Stroke code: Last Known Well Time: 1400 Date: 01/02/24 [facility], NIHSS: 01/02/2024 20:05 NIHSS Criteria LOC 0 LOC Questions 2 LOC Commands 0 Best Gaze 0 Visual 0 Facial Palsy 2 Left Arm, Motor 0 Right Arm, Motor 0 Left Leg, Motor 0 Right Leg, Motor 0 Limb Ataxia 0 Sensory 0 Best Language 2 Dysarthria 0 Extinction/Inatten. 0 Total Score 6 Skin- Warm, dry, well perfused, normal texture. Skin breakdown: none Lymphatic/Hematologic- No cervical adenopathy or bruising. Psychiatric-expressive aphasia. Oriented to person and place. Labs I have personally reviewed Recent Labs 01/02/241940 WBC 4.28 RBC 4.46 HGB 14.5 HCT 42.0 MCV 94 MCH 32.5 MCHC 34.5 PLT 166 NEUTROABS 2.10* Recent Labs 01/02/241940 NA 139 K 4.2 CL 106 CO2 25 BUN 15 CREATININE 0.43* CALCIUM 9.5 MG 1.8 LABALBU 4.1 Recent Labs 01/02/241940 TROPONINI <0.034 Recent Labs 01/02/241940 TBIL 1.3 ALKPHOS 137* AST 53* ALT 33 Recent Labs 01/02/241936 COLOR Yellow CLARITYU Clear GLUCOSEU Negative BILIRUBINUR Negative KETONES Negative LABSPEC <=1.005 PHUR 7.5 PROTEINUA Negative UROBILINOGEN 0.2 NITRITE Negative LEUKESTER Negative Imaging Personally reviewed I have independently visualized images CT HEAD WO CONTRAST Addendum Date: 01/02/2024 Findings were discussed by telephone with MONE Hussein on 01/02/2024 8:15 PM EDT, to expedite further management. THIS DOCUMENT HAS BEEN ELECTRONICALLY SIGNED BY BRIGIDO FLORES MD FOR ANY QUESTIONS OR CONCERNS REGARDING THIS REPORT PLEASE CALL [facility] AT [phone] Result Date: 01/02/2024 No acute or concerning focal intracranial abnormality. ASSESSMENT: ASPECTS ([place] Stroke Program Early CT Score) is 10. THIS DOCUMENT HAS BEEN ELECTRONICALLY SIGNED BY BRIGIDO FLORES MD FOR ANY QUESTIONS OR CONCERNS REGARDING THIS REPORT PLEASE CALL [facility] AT [phone] CT ANGIO HEAD NECK Result Date: 01/02/2024 No intracranial large vessel arterial occlusive or stenotic lesion and no evidence of [id number] aneurysm or dural sinus thrombosis. ASPECTS ([place] Stroke Program Early CT Score) is 10. PROCEDURE INFORMATION: Exam: CTA Neck With Contrast Exam date and time: 7:41 PM Age: 73 years old Clinical indication: Stroke-like symptoms; Altered mental status/memoryloss; Additional info: Confusion, aphasia TECHNIQUE: Imaging protocol: [...] in short-segment, milder than 50% luminal caliber narrowing.No hemodynamically significant stenosis of the extracranial segment. No dissection or occlusion. Right external carotid artery: No occlusion or hemodynamically significant stenosis of the origin. Left common carotid artery: No hemodynamically significant stenosis. No dissection or occlusion. Left internal carotid artery: Mild left carotid bulb and proximal left ICA atherosclerotic plaque results in short-segment, milder than 50% luminal caliber narrowing. No hemodynamically significant stenosisof the extracranial segment. No dissection or occlusion. Left external carotid artery: No occlusionor hemodynamically significant stenosis of the origin. Right vertebral artery: No high-grade stenosis. No dissection or occlusion. Left vertebral artery: No high-grade stenosis. No dissection or occlusion. Soft tissues: Symmetric parapharyngeal and posterior nasopharynx soft tissues are maintained.Parotid and minor salivary glands are normal. Floor [...] the cervical carotid or cervical vertebral arteries. REFER ENCES: NASCET CRITERIA. The degree of stenosis in [...] REGARDING THIS REPORT PLEASE CALL [facility] AT [phone] . EKG Personally reviewed Sinus bradycardia, QTc 422 Assessment Amalia Jones is a 73 y.o. female with presumed acute CVA given mild right sided facial droop and right sided weakness with expressive aphasia Plan 1. Suspected acute CVA-symptoms began while the patient was napping hours prior to presentation. Patient is right-hand dominant. Head CT unremarkable. Initial NIH score is 6. Patient discussed with [facility] neurology who recommends medical admission and implementation of secondary preventative measures.Pt passed her swallow eval in the ED. -MRI brain -Patient was started on high-dose statin 80 mg nightly and daily aspirin -Telemetry monitoring -Echocardiogram ordered -PT, OT, BROADCAST PROGRAM DIRECTOR eval's -Lovenox 2. Hypothyroidism-continue levothyroxine 3. Hypertension-hold losartan to allow for permissive hypertension 4. Acute metabolic encephalopathy-patient had agitations associated with her acute CVA. She received Zyprexa in the emergency department, she is now cooperative. -Supportive care 5. Chronic pleural vein thrombosis-there is some question of associated mild hepatic encephalopathyand she was started on rifaximin, but she is not currently taking it. VTE Prophylaxis: Lovenox Code: Full code Disposition: Full admission Provider to Provider: I personally discussed this case with the ED provider prior to this admission. Time spent: 75 minutes spent arranging this admission including time spent at bedside evaluate the patient, review of medical record, complex medical decision making Meghan Woo DO 01/02/2024 21:16 documented in this encounter Consult Notes * Ranjith Baker MD - 01/03/2024 2613 EDT [facility] Neurology Inpatient Note History Amalia is a 73-year-old female who neurology has been consulted for transient speech difficulties. She has a past medical history of chronic portal vein thrombosis with chronic abdominal pain and mild cognitive impairment. Amalia provides the majority of the history, occasionally assisted by her who is at the bedside. Amalia woke up feeling nauseous with some abdominal pain yesterday morning. Despite this, she still wanted to go to sabianist. Later on that day, she went home and ate lunch with her . Subsequently, she decided to take a nap around 2:30 PM. Her went in to check on her and found her around 4:00 PM sitting at the base of the stairs.Her head was down and she was not responding when her was talking to her. She herself has some but minimal recollection of this. She did not appear to have any focal neurological deficits. The only word she was able to get out was Pee. For this, her took her to the bathroom. The only words that she could say was no. While saying no however she would nod her head. Eventually, they decided to bring her into the emergency department for further evaluation. While in the emergency department, she continued to have speech difficulties. She says that she knew what she wanted to say but had difficulty getting the words out. Interestingly, her gave her a cell phone andshe was able to to type her responses. While in the emergency department, she was felt to have a right lower facial droop. A CT of the head was obtained which showed no acute intracranial abnormalities. A CTA head and neck showed no evidence of significant intracranial or extracranial vascular disease. By the time she got to the floors around 1 AM her symptoms had resolved entirely. She went on to get an MRI today which showed no acute intracranial abnormalities. She did start milk thistle on Wednesday but otherwise started no other medications recently. Examination: BP 100/54 (BP Cuff Location: Left arm, BP Patient Position: Supine) Pulse 72 Temp 36.4 ??C (97.5 ??F) (Oral) Resp 15 Ht 157.5 cm (62) Wt 76.8 kg (169 lb 6.4 oz) SpO2 97% BMI 30.98 kg/m?? GENERAL: Normal appearance, no acute distress. CV: Observation reveals no significant edema; normal distal pulses MENTAL STATUS: Level of consciousness: awake/alert Orientation: The patient was oriented to person, place and month/year. Language: fluent; normal comprehension, naming and repetition CRANIAL NERVES: - II: Visual mackenzie full, PERRL - III, IV, : No deviation at primary gaze, EOMI - V: Facial sensation symmetric to light touch bilaterally - VII: No facial asymmetry at rest, facial movements symmetric bilaterally. - VIII: Hearing intact bilaterally - IX/X: Palate elevation symmetric bilaterally. No dysphonia. - XI: Shoulder shrug symmetric bilaterally - XII: Tongue protrusion midline; no dysarthria MOTOR: - normal bulk throughout without fasciculations - Muscle tone is normal bilaterally. - Strength is 4/5 in the left upper extremity and 3+/5 in the right upper extremity proximally. At least 3/5 strength proximally in the bilateral lower extremities - No involuntary movements SENSORY: No lateralizing signs or deficits on multimodal testing of all extremities. COORDINATION/MOVEMENT: Coordination and fine motor movements were normal and without ataxia. Prior Workup: Labs: Imaging: CT head: No acute or concerning focal intracranial abnormalities CTA head and neck: No significant intracranial or extracranial vascular disease MR brain without contrast: No acute intracranial abnormalities. TTE: Ejection fraction 60 to 65%. Normal size left atrium. No masses/vegetation/thrombi. No PFO noted Assessment: Amalia is a 73-year-old female who was brought into the hospital for transient speech difficulties. Overall, there is a bit of uncertainty as to what to make of Amalia's symptoms. Initially, the clinical picture seems more consistent with transient encephalopathy. Later when she came to the emergency department, there is documentation of a right lower facial droop in combination with what sounds like predominantly expressive aphasia. The total duration of her symptoms was around 12 hours. Her clinical examination today is relatively unremarkable. She has normal and fluent speech with preserved comprehension, naming and repetition. She is globally weak and perhaps slightly asymmetrically so in the upper extremitie(right greater than left weakness). Given the possibility of a TIA, would recommend continuing aspirin 81 mg and atorvastatin 80 mg daily. Would recommend following up with her PCP for control of risk factors. Also would recommend ongoing PT given her global weakness. Ranjith Baker MD I spent a total of 60 minutes on the date of this encounter meeting with the patient and reviewing documentation/coordinating care as described in the above note. No procedures were performed at the time of the visit. documented in this encounter ED Notes * Randy Chavez - 01/02/20242030 EDT 12 Lead EKG Performed by randy chavez and shown to Navi COLON * Mone Tyler MD - 01/02/20241920 EDTAssociated Order(s): Critical Care Emergency Department Visit Medical Decision Making 73-year-old female with chronic portal vein thrombosis presents to the emergency department with altered mental status. Last known well at 2 PM then woke up from a nap with aphasia and agitation. On exam in the emergency department she has a mild right lower facial droop, expressive and receptive aphasia. Symptoms concerning for stroke. Differential also includes hepatic encephalopathy, metabolicencephalopathy or encephalopathy secondary to infection such as UTI. CT/CTA of the head and neck performed, which per radiology read is without acute findings. I also reviewed the images with Dr. Mason from stroke neurology at [facility] who notes scattered areas of hypodensity in the subcortical white matter of uncertain etiology. She recommends pursuing MRI tomorrow tofurther assess for stroke. Labs reviewed-CBC and CMP without significant abnormalities. Ethanol negative. Troponin negative. Ammonia normal. UA without evidence of infection. Symptoms are most likely due to stroke given lack of alternative explanation with workup tonight. Patient received aspirin in the ED along with IV fluids. Discussed with Dr. Woo and admitted to the hospitalist service. EKG (independent interpretation): Normal sinus rhythm with rate of 65, normal axis, normal intervals, no acute ischemic changes Medical Decision Making Problems Addressed: Aphasia due to acute cerebrovascular accident (CVA) ([facility]): complicated acute illness or injury Amount and/or Complexity of Data Reviewed Labs: ordered. Radiology: ordered. Risk OTC drugs. Prescription drug management. Decision regarding hospitalization. Final diagnoses: Aphasia due to acute cerebrovascular accident (CVA) ([facility]) Disposition: Admitted Chief complaint: Altered mental status HPI Amalia Jones is a 73 y.o. female with chronic portal vein thrombosis that occurred acutely during anabdominal surgery in 2010, esophageal/gastric varices who presents to the ED for altered mental status. Patient is followed by GI at [facility] for chronic portal vein thrombosis. She has had memory issuesand has been treated with rifaximin for possible low-grade hepatic encephalopathy (normal ammonia in the past) but her memory problems have not been clearly attributed to hepatic encephalopathy. states she has been evaluated for dementia and these evaluations were negative. She has had years of intermittent epigastric pain with several workups in various emergency departments that have been unrevealing. At her last visit with GI nonulcer dyspepsia was suspected and she was started on hyoscyamine. Today the patient took a nap after sabianist and when she woke up she seemed very confused. She was sitting on the stairs in her camper saying no no no. At times seem to be having difficultyspeaking, became very upset when her spouse recommended she come to the hospital, became very agitated. He has never seen her like this before. History was provided by: EMS, spouse, patient Patient's pertinent PMH, FH, SH were reviewed and edited as necessary. Nursing notes reviewed. A medical screening exam was performed. Physical Exam BP 133/72 (BP Cuff Location: Left arm, BP Patient Position: Semi fowlers) Pulse 72 Temp 36.8 ??C (98.2 ??F) Resp 18 SpO2 95% Physical Exam Vitals and nursing note reviewed. Constitutional: General: She is in acute distress (Patient appears distressed, mildly agitated). Appearance: Normal appearance. HENT: Head: Normocephalic and atraumatic. Right Ear: External ear normal. Left Ear: External ear normal. Nose: Nose normal. Mouth/Throat: Mouth: Mucous membranes are moist. Eyes: Extraocular Movements: Extraocular movements intact. Pupils: Pupils are equal, round, and reactive to light. Cardiovascular: Rate and Rhythm: Normal rate and regular rhythm. Heart sounds: Normal heart sounds. Pulmonary: Effort: Pulmonary effort is normal. Breath sounds: Normal breath sounds. Abdominal: Palpations: Abdomen is soft. There is no mass. Tenderness: There is no abdominal tenderness. Musculoskeletal: General: No swelling or deformity. Normal range of motion. Cervical back: Normal range of motion and neck supple. Skin: General: Skin is warm and dry. Neurological: Mental Status: She is alert. Cranial Nerves: Facial asymmetry (Mild right lower facial droop) present. Sensory: Sensation is intact. Motor: Motor function is intact. Comments: Expressive aphasia speaking in fragmented sentences, difficulty following instructions CLINICAL CALCULATOR RESULTS NIH Stroke Scale Patient Last Known Well - Date: 01/02/24 (01/02/24 2005 : Mone Tyler MD) Patient Last Known Well - Time: 1400 (01/02/24 2005 : Mone Tyler MD) 1A. Level of Consciousness: Alert, Keenly responsive (01/02/24 2005 : Mone Tyler MD) 1B. Ask Month and Age: Answers neither question correctly (01/02/24 2005 : Mone Tyler MD) 1C. Blink Eyes & Squeeze Hands: Performs both tasks correctly (01/02/24 2005 : Mone Tyler MD) 2. Best Gaze: Normal (01/02/24 2005 : Mone Tyler MD) 3. Visual: No visual loss (01/02/24 2005 : Mone Tyler MD) 4. Facial Palsy: Partial paralysis (lower face) (01/02/24 2005 : Mone Tyler MD) 5A. Motor - Left Arm: No drift for 10 seconds (01/02/24 2005 : Mone Tyler MD) 5B. Motor - Right Arm: No drift for 10 seconds (01/02/242004 : Mone Tyler MD) 6A. Motor - Left Leg: No drift for 5 seconds (01/02/24 2005 : Mone Tyler MD) 6B. Motor - Right Leg: No drift for 5 seconds (01/02/24 2005 : Mone Tyler MD) 7. Limb Ataxia: No ataxia (01/02/24 2005 : Mone Tyler MD) 8. Sensory Loss: Normal, no sensory loss (01/02/24 2005 : Mone Tyler MD) 9. Best Language: Severe aphasia, fragmentary expression, cannot identify materials (01/02/242004 : Mone Tyler MD) 10. Dysarthria: Normal (01/02/24 2005 : Mone Tyler MD) 11. Extinction And Inattention: No abnormality (01/02/24 2005 : Mone Tyler MD) NIH Stroke Scale: 6 (01/02/24 2005 : Mone Tyler MD) Procedures Critical Care Performed by: Mone Tyler MD Authorized by: Mone Tyler MD Critical care provider statement: Critical care time (minutes): 40 Critical care time was exclusive of: Separately billable procedures and treating other patients andteaching time Critical care was necessary to treat or prevent imminent or life-threatening deterioration of the following conditions: MECHANICAL INSULATOR failure or compromise Critical care was time spent personally by me on the following activities: Ordering and performing treatments and interventions, development of treatment plan with patient or surrogate, ordering and review of laboratory studies, ordering and review of radiographic studies, discussions with consultants, pulse oximetry, re-evaluation of patient's condition, evaluation of patient's response to treatment, examination of patient and obtaining history from patient or surrogate I assumed direction of critical care for this patient from another provider in my specialty: no Care discussed with: admitting provider documented in this encounter Miscellaneous Notes * Plan of Care - Brii Scott - 01/04/2024 1059 EDT 01/04/24 1059 Medicare IM Notice IM notice status Patient received notification verbally and in writing while in hospital. IM notice given at discharge? Yes * Plan of Care - Leatha Erickson RN - 01/04/2024 0333 EDT Problem: Cognitive/ Neuro: Goal: Mental status will return to base line Outcome: Ongoing Patient is AOX3. Neurological status appears to be returning to baseline per patient and who is at bedside. Patient does seem to have regained strength to right side compared to previous assessments. Only mild difference in strength to right LE noted. Patient has had some loose stools through the night with abdominal cramping. This has been an ongoing issue for patient off and on for years now. Patient has been able to make needs known appropriately. Nursing to continue to monitor. * Plan of Care - Debby Chavez RN - 01/03/2024 1934 EDT Pt is a 73 yo female, admitted for aphasia due to acute cerebrovascular accident. Assumed care at 0700. Shift assessment completed, see flowsheet. Medications administered, see eMAR. Provided a safe environment and emotional support. Routine hourly observations completed throughout shift. Neuro VS were completed. Pt worked with PT, pt tolerated fairly. Able to ambulate using walker, requires x1-2 assist. Able to stand and pivot with walker to commode. present throughout whole shift. Some family members came and visited, pt tolerated well. Pt stated she was extremely tired and slept a couple hours heavily on this shift. MRI stated no acute intracranial abnormality is detected. Mild cerebral global volume loss and scattered high T2 signal white matter changes. This pattern isnonspecific however most commonly reflects small vessel ischemic disease of aging. Problem: Safety: Goal: Will remain free from falls Outcome: Ongoing Problem: Cognitive/ Neuro: Goal: Will regain or maintain usual level of consciousness Outcome: Ongoing Goal: Mental status will return to base line Outcome: Ongoing Goal: Ability to maintain clinical measurements within normal limits will improve Outcome: Ongoing * Plan of Care - Charley Russell - 01/03/2024 1127 EDT 01/03/24 1126 Medicare IM Notice IM notice status Patient received notification verbally and in writing while in hospital. IM notice given on admission? Yes Given on 01/02/24 documented in this encounter Plan of Treatment Upcoming Encounters Date Type Department Care Team (Late st Contact Info) Description 02/16/2024 13:50 EDT Appointment [facility] [address] [place] [address] Scheduled Referrals Name Type Priority Associated Diagnoses Orde r Schedule AMB CONS/FOLLOW UP HOME HEALTH SERVICES Outpatient Referral STAT TIA (transient ischemic attack) Expected: 01/04/2024 (Approximate), Expires: 01/03/2025 documented as of this encounter Procedures Procedure Name Priority Date/Time Associated Diagnosis Comments ECG REPORT - SCANNED 01/10/2024 10:37 EDT TYPE AND SCREEN Routine 01/04/2024 13:18 EDT HOLD LAVENDER TOP Routine 01/04/2024 8:1 2 EDT PATIENT RE-TYPE Routine 01/04/2024 7:20 EDT COMPLETE BLOOD COUNT AND DIFFERENTIAL Routine 01/04/2024 7:20 EDT T3, TOTAL Add-On 01/04/2024 7:20 EDT TSH Routine 01/04/2024 7:20 EDT T4 FREE Add-On 01/04/2024 7:20 EDT MAGNESIUM Routine 01/04/2024 7:20 EDT BASIC METABOLIC PANEL (BMP) Routine 01/04/2024 7:20 EDT MR HEAD WO CONTRAST STAT 01/03/2024 1 2:36 EDT TRANSTHORACIC ECHO (TTE) COMPLETE Routine 01/03/2024 8:01 EDT COMPLETE BLOOD COUNT Routine 01/03/2024 6:54 EDT MAGNESIUM Routine 01/03/2024 6:54 EDT VITAMIN B12 Routine 01/03/2024 6:54 EDT LIPID PROFILE (INCLUDES CHOLESTEROL, TRIGLYCERIDES, HDL, LDL) Routine 01/03/2024 6:54 EDT BASIC METABOLIC PANEL (BMP) Routine 01/03/2024 6:54 EDT ECG REPORT - SCANNED 01/02/2024 23:34 EDT EKG 12-LEAD STAT 01/02/2024 20:23 EDT POCT BLOOD GAS, CG8 I-STAT STAT 01/02/2024 20:03 EDT POCT GLUCOSE, INTERFACED STAT 01/02/2024 20:[address] HEAD WO CONTRAST STAT 01/02/2024 1 9:[address] ANGIO HEAD NECK STAT 01/02/2024 19 :57 EDT HOLD BLUE TOP Routine 01/02/2024 19:46 EDT TROPONIN I STAT 01/02/2024 19:41 EDT COMPLETE BLOOD COUNT AND DIFFERENTIAL STAT 01/02/2024 19:41 EDT MAGNESIUM STAT 01/02/2024 19:41 EDT AMMONIA STAT 01/02/2024 19:41 EDT ETHANOL, BLOOD STAT 01/02/2024 19:41 EDT COMPREHENSIVE METABOLIC PANEL (CMP) STAT 01/02/2024 19:41 EDT UA WITH REFLEX SEDIMENT (CULTURE IF POS) STAT 01/02/2024 19:37 EDT ED CRITICAL CARE Routine 01/02/2024 19:2 1 EDT ED CRITICAL CARE Routine 01/02/2024 19:2 1 EDT documented in this encounter Results * ECG REPORT - SCANNED (01/10/2024 10:37 EDT) 01/10/2024 10:3 7 EDT Scan 2 [employer] Operator PROCEDURE/MINOR HA GICAL ORDERABLES * TYPE AND SCREEN (01/04/2024 13:18 EDT) ABO A 01/04/2024 15:02 EDT [facility] Rh Factor Negative 01/04/2024 15:02 EDT [facility] Antibody Screen Negative 01/04/2024 15:02 EDT [facility] Specimen Expires: 01/07/2024 @ 23:59 01/04/2024 15:02 EDT [facility] Blood VENOUS BLOOD / Unknown Venipuncture / Unknown 01/04/2024 13:18 EDT 01/04/2024 13:24 EDT Ra Ramsey MD BLOOD BANK TESTS [facility]LOOD [facility] [address] [place] [address] * HOLD LAVENDER TOP (01/04/2024 8:12 EDT) Hold Hold 01/04/2024 9:15 EDT [facility] Blood VENOUS BLOOD / Unknown 01/04/2024 8:12 EDT 01/04/2024 8:12 EDT Ra Ramsey MD LAB INFO SERVICE AND SUPPORT & PHONE RESULT Performing Organization Address City/[facility]/ZIP Co de Phone Number [facility] [address] [place] [address] * PATIENT RE-TYPE (01/04/2024 7:20 EDT) ABO A 01/04/2024 14:42 EDT [facility]LOOD [facility] Rh Factor Negative 01/04/2024 14:42 EDT [facility] Blood VENOUS BLOOD / Unknown Venipuncture / Unknown 01/04/2024 7:20 EDT 01/04/2024 13:42 EDT Ra Ramsey MD BLOOD BANK TESTS [facility] BLOOD [facility] [address] [facility] [place] [address] * T3, TOTAL (01/04/2024 7:20 EDT) T3, Total 133 97 - 169 ng/dL 01/04/2024 11:27 EDT [facility] Blood VENOUS BLOOD / Unknown Venipuncture / Unknown 01/04/2024 7:20 EDT 01/04/2024 8:09 EDT Ra Ramsey MD CHEMISTRY & BLOOD GAS ORDERABLES [facility] [address] [place] [address] * T4 FREE (01/04/2024 7:20 EDT) Pathologist [facility] T4, Free 1.3 0.8 - 2.2 ng/dL 01/04/2024 11:12 EDT [facility] Blood VENOUS BLOOD / Unknown Venipuncture / Unknown 01/04/2024 7:20 EDT 01/04/2024 8:09 EDT Ra Ramsey MD CHEMISTRY & BLOOD GAS ORDERABLES [facility] [address] [place] [address] * (ABNORMAL) COMPLETE BLOOD COUNT AND DIFFERENTIAL (01/04/2024 7:20 EDT) Pathologist [facility] WBC 3.28(L) 4.00 - 12.40 K/cmm [facility] RBC 4.00 3.86 - 5.04 M/cmm 01/04/2024 8:24 [facility] Hemoglobin 13.2 11.6 - 15.2 g/dL 01/04/2024 8:24 [facility] HCT 38.7 34.9 - 44.4 % 01/04/2024 8:24 [facility] MCV 97 81 - 98 fL 01/04/2024 8:24 [facility] MCH 33.0 26.7 - 33.3 pg 01/04/2024 8:24 [facility] MCHC 34.1 32.1 - 35.9 g/dL 01/04/2024 8:24 [facility] RDW-CV 13.1 <14.7 % 01/04/2024 8:24 [facility] RDW-SD 46.6 <50.4 fl 01/04/2024 8:24 [facility] PLT 120(L) 141 - 377 K/cmm 01/04/2024 8:24 [facility] MPV 9.6 9.5 - 12.7 fL 01/04/2024 8:24 [facility] % Neutrophils 46.1 % 01/04/2024 8:24 [facility] % Lymphocytes 28.0 % 01/04/2024 8:24 [facility] % Monocytes 13.7 % 01/04/2024 8:24 [facility] % Eosinophils 10.7 % 01/04/2024 8:24 [facility] % Basophils 1.5 % 01/04/2024 8:24 [facility] % Immature Grans 0.0 <0.9 % 01/04/20 8:24 [facility] Absolute Neutrophils 1.51(L) 2.20 - 8.85 K/cmm 01/04/2024 8:24 [facility] Absolute Lymphocytes 0.92(L) 1.09 - 3.30 K/cmm 01/04/2024 8:24 [facility] Absolute Monocytes 0.45 0.10 - 0.80 K/cmm 01/04/2024 8:24 [facility] Absolute Eosinophils 0.35 0.03 - 0.61 K/cmm 01/04/2024 8:24 [facility] ABS Basophils 0.05 0.01 - 0.11 K/cmm 01/04/2024 8:24 [facility] Absolute Immature Grans 0.00 0.00 - 0.06 K/cmm 01/04/2024 8:24 EDT [facility] Type of Differential: Auto 01/04/2024 8:24 EDT [facility] Blood VENOUS BLOOD / Unknown Venipuncture / Unknown 01/04/2024 7:20 EDT 01/04/2024 8:07 EDT Ra Ramsey MD PACKAGES & DNA NE OBE ORDERABLES Performing Organization Address City/[facility]/ZIP Co de Phone Number [facility] [address] [place] [address] * MAGNESIUM (01/04/2024 7:20 EDT) Pathologist [facility] Magnesium 1.8 1.7 - 2.8 mg/dL 01/04/2024 8:52 EDT [facility] Blood VENOUS BLOOD / Unknown Venipuncture / Unknown 01/04/2024 7:20 EDT 01/04/2024 8:09 EDT Ra Ramsey MD CHEMISTRY & BLOOD GAS ORDERABLES Performing Organization Address City/[facility]/ZIP Co de Phone Number [facility] [address] [place] [address] * (ABNORMAL) BASIC METABOLIC PANEL (BMP) (01/04/2024 7:20 EDT) Sodium 138 136 - 145 mmol/L 01/04/2024 8:52 [facility] Potassium 4.0 3.5 - 5.0 mmol/L 01/04/2024 8:52 [facility] Chloride 108 96 - 110 mmol/L 01/04/2024 8:52 [facility] CO2 Total 25 22 - 32 mmol/L 01/04/2024 8:52 [facility] Anion Gap 5 5 - 14 mmol/L 01/04/2024 8:52 [facility] Glucose 89 70 - 99 mg/dl 01/04/2024 8:52 EDT [facility] Calcium 8.7 8.5 - 10.5 mg/dL 01/04/2024 8:52 EDT [facility] BUN 8(L) 10 - 26 mg/dL 01/04/2024 8:52 EDT [facility] Creatinine 0.39(L) 0.52 - 1.04 mg/dL 01/04/2024 8:52 EDT [facility] eGFR 105 >60 mL/min/1.73 m2 01/04/2024 8:52 EDT [facility] Blood VENOUS BLOOD / Unknown Venipuncture / Unknown 01/04/2024 7:20 EDT 01/04/2024 8:09 EDT Ra Ramsey MD CHEMISTRY & BLOOD GAS ORDERABLES Performing Organization Address City/[facility]/ZIP Co de Phone Number [facility] [address] [place] [address] * (ABNORMAL) TSH (01/04/2024 7:20 EDT) TSH 6.66(H) 0.47 - 4.68 mIU/L 01/04/2024 9:27 EDT [facility] Blood VENOUS BLOOD / Unknown Venipuncture / Unknown 01/04/2024 7:20 EDT 01/04/2024 8:09 EDT Narrative [facility] - 01/04/2024 9:27 EDT The results of this assay can be falsely lowered due to the consumption of Biotin. Ra Ramsey MD CHEMISTRY & BLOOD GAS ORDERABLES Performing Organization Address City/[facility] Co de Phone Number [facility] [address] [place] [id number] * MR HEAD WO CONTRAST (01/03/2024 12:36 EDT) Anatomical Region Laterality Modality Head Magnetic Resonan ce 01/03/2024 12:5 2 EDT Impressions 01/03/2024 12:52 EDT 1. No acute intracranial abnormality is detected. 2. Mild cerebral global volume loss and scattered high T2 signal white matter changes. This pattern is nonspecific however most commonly reflects small vessel ischemic disease of aging. [id number] Narrative 01/03/2024 12:52 EDT EXAM: MRI HEAD [...] EXTRACRANIAL SOFT TISSUES: Unremarkable. Resulting Agency Comment [id number] Procedure Note Kg Lane MD - 01/03/2024 [...] commonly reflectssmall vessel ischemic disease of aging. [id number] Meghan Woo DO IMG MRI ORDERABLES * TRANSTHORACIC ECHO (TTE) COMPLETE W/DOPPLER W/CF NO CONTRAST (01/03/2024 8:01 EDT) [facility] Mitral deceleration time 257 ms [facility] POIN [...] Woo DO CARDIAC ECHO ORDERA BLES * VITAMIN B12 (01/03/2024 6:54 EDT) [facility] Vitamin B12 544 211 - 911 pg/mL 01/03/2024 16:42 EDT [facility] Blood VENOUS BLOOD / Unknown Venipuncture / Unknown 01/03/2024 6:54 EDT 01/03/2024 7:17 EDT Narrative [facility] - 01/03/2024 16:42 EDT The results of this assay can be falsely elevated due to the consumption of Biotin. Ra Ramsey MD CHEMISTRY & BLOOD GAS ORDERABLES Performing Organization Address City/[facility]/ZIP Co de Phone Number [facility] [address] [place] [address] * MAGNESIUM (01/03/2024 6:54 EDT) [facility] Magnesium 1.8 1.7 - 2.8 mg/dL 01/03/2024 7:47 EDT [facility] Blood VENOUS BLOOD / Unknown Venipuncture / Unknown 01/03/2024 6:54 EDT 01/03/2024 7:17 EDT Meghan Woo DO CHEMISTRY & BLOOD G ORDERABLES [facility] [address] [place] [address] * (ABNORMAL) COMPLETE BLOOD COUNT (01/03/2024 6:54 EDT) [facility] WBC 3.31(L) 4.00 - 12.40 K/cmm 01/03/2024 7:23 [facility] RBC 3.92 3.86 - 5.04 M/cmm 01/03/2024 7:23 [facility] Hemoglobin 12.6 11.6 - 15.2 g/dL 01/03/2024 7:23 [facility] HCT 37.5 34.9 - 44.4 % 01/03/2024 7:23 [facility] MCV 96 81 - 98 fL 01/03/2024 7:23 [facility] MCH 32.1 26.7 - 33.3 pg 01/03/2024 7:23 [facility] MCHC 33.6 32.1 - 35.9 g/dL 01/03/2024 7:23 [facility] RDW-CV 13.2 <14.7 % 01/03/2024 7:23 [facility] RDW-SD 46.2 <50.4 fl 01/03/2024 7:23 [facility] PLT 117(L) 141 - 377 K/cmm 01/03/2024 7:23 [facility] MPV 9.5 9.5 - 12.7 fL 01/03/2024 7:23 [facility] Blood VENOUS BLOOD / Unknown Venipuncture / Unknown 01/03/2024 6:54 EDT 01/03/2024 7:17 EDT Mgehan Woo DO HEMATOLOGY & PF4 OR DERABLES [facility] [address] [place] [address] * (ABNORMAL) BASIC METABOLIC PANEL (BMP) (01/03/2024 6:54 EDT) Sodium 137 136 - 145 mmol/L 01/03/2024 7:47 [facility] Potassium 3.7 3.5 - 5.0 mmol/L 01/03/2024 7:47 [facility] Chloride 107 96 - 110 mmol/L 01/03/2024 7:47 [facility] CO2 Total 25 22 - 32 mmol/L 01/03/2024 7:47 [facility] Anion Gap 5 5 - 14 mmol/L 01/03/2024 7:47 [facility] Glucose 71 70 - 99 mg/dl 01/03/2024 7:47 [facility] Calcium 8.3(L) 8.5 - 10.5 mg/dL 01/03/2024 7:47 [facility] BUN 11 10 - 26 mg/dL 01/03/2024 7:47 [facility] Creatinine 0.40(L) 0.52 - 1.04 mg/dL 01/03/2024 7:47 [facility] eGFR 104 >60 mL/min/1.73 m2 01/03/2024 7:47 [facility] Blood VENOUS BLOOD / Unknown Venipuncture / Unknown 01/03/2024 6:54 EDT 01/03/2024 7:17 EDT Meghan Woo DO CHEMISTRY & BLOOD G ORDERABLES [facility] [address] [place] [address] * LIPID PROFILE (INCLUDES CHOLESTEROL, TRIGLYCERIDES, HDL, LDL) (01/03/2024 6:54 EDT) Cholesterol 158 <200 mg/dL 01/03/2024 7:47 [facility] Comment:Note that therapeuti c goals will differ between patients based on cardiac risk factors and current medical therapy. HDL 71 >=50 mg/dl 01/03/2024 7:47 [facility] Comment:Note that therapeuti c goals will differ between patients based on cardiac risk factors and current medical therapy. LDL, Calculated 81 <160 mg/dL 7:47 EDT [facility] Comment:Note that therapeuti c goals will differ between patients based on cardiac risk factors and current medical therapy. Triglyceride 32 <=150 mg/dL 01/03/2024 7:47 [facility] Comment:Note that therapeuti c goals will differ between patients based on cardiac risk factors and current medical therapy. Chol/HDL Ratio 2.2 See Note 01/03/2024 7:47 [facility] Comment: NOTE: Desirable Ratio = <4.1 Patient At Risk Ratio = >5.0(Males) ?>6.0(Females) Non HDL Cholesterol 87 <160 mg/dL 01/03/2024 7:47 [facility] Comment:Note that therapeuti c goals will differ between patients based on cardiac risk factors and current medical therapy. Blood VENOUS BLOOD / Unknown Venipuncture / Unknown 01/03/2024 6:54 EDT 01/03/2024 7:17 EDT Meghan Woo DO CHEMISTRY & BLOOD G ORDERABLES [facility] [address] [place] [address] * ECG REPORT - SCANNED (01/02/2024 23:34 EDT) 01/02/2024 23:3 4 EDT Scan 2 [employer] Operator PROCEDURE/MINOR HA GICAL ORDERABLES * EKG 12-LEAD (01/02/2024 20:23 EDT) 01/02/2024 20:2 3 EDT Narrative [facility] - 01/02/2024 23:19 EDT ? [facility] ? Test Date: ?2024-01-02 Pat Name: ? AMALIA NORTH ?Department: ? Room: ? A02 Gender: ? Female ? 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 Requested By: NAVI SHORE Order Number: [id number] ? Reading MD: ?? MARIAMA CUELLAR MD ? Measurements Intervals ?[place] ? Rate: ? 65 ? P: ?31 NE: ? 196 ?QRS: ?17 QRSD: ? 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 Electronically Signed On 01-02-2024 23:19:20 EDT by NICHOLE COLON. Mone Tyler MD CARDIAC ECG ORDERABL ES [facility] * (ABNORMAL) POCT BLOOD GAS, CG8 I-STAT (01/02/2024 20:03 EDT) pH, Venous, i-STAT 7.42(H) 7.31 - 7.41 01/02/2024 20:06 EDT [facility] pCO2, Venous, i-STAT 42 41 - 51 mmHg 01/02/2024 20:06 EDT [facility] pO2, Venous, i-STAT 43 30 - 50 mmHg 01/02/2024 20:06 [facility] TCO2, Venous, i-STAT 29(H) 22 - 28 mmol/L 01/02/2024 20:06 [facility] O2 Saturation, Venous, i-STAT 79 60 - 85 % 01/02/2024 20:06 [facility] Sodium, Venous, i-STAT 140 136 - 145 mmol/L 01/02/2024 20:06 [facility] Potassium, Venous, i-STAT 4.1 3.5 - 5 mmol/L 01/02/2024 20:06 [facility] Hematocrit, Venous, i-STAT 36 35 - 44 % 01/02/2024 20:06 [facility] Ionized Calcium, Venous, i-STAT 1.22 1.12 - 1.32 mmol/L 01/02/2024 20:06 [facility] Base Excess(+) / Deficit(-), Venous, i-STAT 3 -2 - 3 mmol/L 01/02/2024 20:06 [facility] Blood VENOUS BLOOD / Unknown 01/02/2024 20:03 EDT 01/02/2024 20:06 EDT Narrative [facility] - 01/02/2024 20:06 EDT Test Performed by Respiratory Mone Tyler MD POINT OF CARE TEST O RDERAYOANA [facility] [address] [place] [address] * POCT GLUCOSE, INTERFACED (01/02/2024 20:01 EDT) Glucose, POC 90 70 - 100 mg/dL 01/02/2024 20:06 [facility] Blood CAPILLARY BLOOD / Unknown 01/02/2024 20:01 EDT 01/02/2024 20:06 EDT Mone Tyler MD POINT OF CARE TEST O RDERABLES [facility] [address] [place] [address] * CT ANGIO HEAD NECK (01/02/2024 19:57 [...] REGARDING THIS REPORT PLEASE CALL [facility] AT [phone] Impressions 01/02/2024 20:09 EDT No intracranial large vessel arterial occlusive or stenotic lesion and no evidence of [id number] aneurysm or dural sinus thrombosis. ASPECTS ([place] Stroke Program Early CT Score) is 10. [...] REGARDING THIS REPORT PLEASE CALL [facility] AT [phone] Narrative 01/02/2024 20:09 EDT PROCEDURE INFORMATION: Exam: [...] or stenotic lesion and no evidence of [id number] aneurysm or dural sinus thrombosis. ASPECTS ([place] Stroke Program Early CT Score) is 10. [...] CONCERNS REGARDING THIS REPORT PLEASE CALL [facility] [phone] Mone Tyler MD IMG CT ORDERABLES * CT HEAD WO CONTRAST (01/02/2024 19:57 [...] REGARDING THIS REPORT PLEASE CALL [facility] AT [phone] Impressions 01/02/2024 20:05 EDT No acute or concerning focal intracranial abnormality. ASSESSMENT: ASPECTS ([place] Stroke Program Early CT Score) is 10. THIS DOCUMENT HAS BEEN ELECTRONICALLY SIGNED BY BRIGIDO FLORES MD FOR ANY QUESTIONS OR CONCERNS REGARDING THIS REPORT PLEASE CALL [facility] AT [phone] Narrative 01/02/2024 20:05 EDT PROCEDURE INFORMATION: Exam: [...] or concerning focal intracranial abnormality. ASSESSMENT: ASPECTS ([place] Stroke Program Early CT Score) is 10. THIS DOCUMENT HAS BEEN ELECTRONICALLY SIGNED BY BRIGIDO FLORES MD FOR ANY QUESTIONS OR CONCERNS REGARDING THIS REPORT PLEASE CALL [facility] [phone] Mone Tyler MD IMG CT ORDERABLES * HOLD BLUE TOP (01/02/2024 19:46 EDT) Hold Hold 01/02/2024 21:01 EDT [facility] Blood VENOUS BLOOD / Unknown Venipuncture / Unknown 01/02/2024 19:46 EDT 01/02/2024 19:49 EDT Mone Tyler MD LAB INFO SERVICE AND SUPPORT & PHONE RESULT Performing Organization Address [facility]/ZIP Co de Phone Number [facility] [address] [place] [address] * AMMONIA (01/02/2024 19:41 EDT) [facility] Ammonia 20 <34 umol/L 01/02/2024 20:02 EDT [facility] Blood VENOUS BLOOD / Unknown Venipuncture / Unknown 01/02/2024 19:41 EDT 01/02/2024 19:44 EDT Mone Tyler MD CHEMISTRY & BLOOD GA S ORDERABLES Performing Organization Address [facility] de Phone Number [facility] [address] [place] [address] * ETHANOL, BLOOD (01/02/2024 19:41 EDT) [facility] Ethanol, Blood <10 <10 mg/dL mg/dL 01/02/2024 20:03 EDT [facility] Comment:Healthy, non-drinkin g individuals will have an ethanol concentration of <10 mg/dL. Blood VENOUS BLOOD / Unknown Venipuncture / Unknown 01/02/2024 19:41 EDT 01/02/2024 19:44 EDT Narrative [facility] - 01/02/2024 20:03 EDT [place] legal blood alcohol limit = 80 mg/dl (0.08%) Mone Tyler MD CHEMISTRY & BLOOD GA S ORDERABLES Performing Organization Address [facility] Co de Phone Number [facility] [address] [place] [address] * TROPONIN I (01/02/2024 19:41 EDT) [facility] Troponin I (ng/mL) <0.034 <0.034 ng/mL 01/02/2024 20:19 EDT [facility] Blood VENOUS BLOOD / Unknown Venipuncture / Unknown 01/02/2024 19:41 EDT 01/02/2024 19:44 EDT Narrative [facility] - 01/02/2024 20:19 EDT The results of this assay can be falsely lowered due to the consumption of Biotin. Mone Tyler MD CHEMISTRY & BLOOD GA S ORDERABLES Performing Organization Address [facility]/ZIP Co de Phone Number [facility] [address] [place] [address] * MAGNESIUM (01/02/2024 19:41 EDT) [facility] Magnesium 1.8 1.7 - 2.8 mg/dL 01/02/2024 20:03 [facility] Blood VENOUS BLOOD / Unknown Venipuncture / Unknown 01/02/2024 19:41 EDT 01/02/2024 19:44 EDT Mone Tyler MD CHEMISTRY & BLOOD GA S ORDERABLES Performing Organization Address [facility] Co de Phone Number [facility] [address] [place] [address] * (ABNORMAL) COMPREHENSIVE METABOLIC PANEL (CMP) (01/02/2024 19:41 EDT) [facility] Sodium 139 136 - 145 mmol/L 01/02/2024 20:03 [facility] Potassium 4.2 3.5 - 5.0 mmol/L 01/02/2024 20:03 [facility] Chloride 106 96 - 110 mmol/L 01/02/2024 20:03 [facility] CO2 Total 25 22 - 32 mmol/L 01/02/2024 20:03 [facility] Glucose 104(H) 70 - 99 mg/dl 01/02/2024 20:03 [facility] BUN 15 10 - 26 mg/dL 01/02/2024 20:03 [facility] Creatinine 0.43(L) 0.52 - 1.04 mg/dL 01/02/2024 20:03 [facility] eGFR 103 >60 mL/min/1.7 3m2 01/02/2024 20:03 [facility] Total Protein 6.5 6.3 - 8.2 g/dL 01/02/2024 20:03 [facility] Albumin 4.1 3.4 - 4.9 g/dL 01/02/2024 20:03 [facility] Alkaline Phosphatase 137(H) 38 - 126 U/L 01/02/2024 20:03 [facility] AST 53(H) 15 - 46 U/L 01/02/2024 20:03 [facility] ALT 33 <35 U/L 01/02/2024 20:03 [facility] Bilirubin, Total 1.3 <1.4 mg/dL 01/02/20 20:03 [facility] Calcium 9.5 8.5 - 10.5 mg/dL 01/02/2024 20:03 [facility] Albumin/Globulin Ratio 1.7 1.0 - 2.5 01/02/2024 20:03 [facility] Anion Gap 8 5 - 14 mmol/L 01/02/2024 20:03 [facility] Blood VENOUS BLOOD / Unknown Venipuncture / Unknown 01/02/2024 19:41 EDT 01/02/2024 19:44 EDT Mone Tyler MD CHEMISTRY & BLOOD GA S ORDERABLES [facility] [address] [place] [address] * (ABNORMAL) COMPLETE BLOOD COUNT AND DIFFERENTIAL (01/02/2024 19:41 EDT) WBC 4.28 4.00 - 12.40 K/cmm [facility] RBC 4.46 3.86 - 5.04 M/cmm 01/02/2024 19:46 [facility] Hemoglobin 14.5 11.6 - 15.2 g/dL 01/02/2024 19:46 [facility] HCT 42.0 34.9 - 44.4 % 01/02/2024 19:46 [facility] MCV 94 81 - 98 fL 01/02/2024 19:46 [facility] MCH 32.5 26.7 - 33.3 pg 01/02/2024 19:46 [facility] MCHC 34.5 32.1 - 35.9 g/dL 01/02/2024 19:46 [facility] RDW-CV 13.2 <14.7 % 01/02/2024 19:46 [facility] RDW-SD 45.7 <50.4 fl 01/02/2024 19:46 [facility] PLT 166 141 - 377 K/cmm 01/02/2024 19:46 [facility] MPV 9.2(L) 9.5 - 12.7 fL 01/02/2024 19:46 [facility] % Neutrophils 49.1 % 01/02/2024 19:46 [facility] % Lymphocytes 27.8 % 01/02/2024 19:46 [facility] % Monocytes 13.6 % 01/02/2024 19:46 [facility] % Eosinophils 7.9 % 01/02/2024 19:46 [facility] % Basophils 1.4 % 01/02/2024 19:46 [facility] % Immature Grans 0.2 <0.9 % 01/02/20 19:46 [facility] Absolute Neutrophils 2.10(L) 2.20 - 8.85 K/cmm 01/02/2024 19:46 [facility] Absolute Lymphocytes 1.19 1.09 - 3.30 K/cmm 01/02/2024 19:46 [facility] Absolute Monocytes 0.58 0.10 - 0.80 K/cmm 01/02/2024 19:46 [facility] Absolute Eosinophils 0.34 0.03 - 0.61 K/cmm 01/02/2024 19:46 [facility] ABS Basophils 0.06 0.01 - 0.11 K/cmm 01/02/2024 19:46 [facility] Absolute Immature Grans 0.01 0.00 - 0.06 K/cmm 01/02/2024 19:46 [facility] Type of Differential: Auto 01/02/2024 19:46 [facility] Blood VENOUS BLOOD / Unknown Venipuncture / Unknown 01/02/2024 19:41 EDT 01/02/2024 19:44 EDT Mone Tyler MD PACKAGES & DNA PROBE ORDERABLES Performing Organization Address [facility] Co de Phone Number [facility] [address] [place] [address] * UA CASCADE TO CULTURE (01/02/2024 19:37 EDT) Color UA Yellow Colorless, Yellow 01/02/2024 19:46 [facility] Clarity UA Clear Clear 01/02/2024 19:46 [facility] Glucose UA Negative Negative mg/dL 01/02/2024 19:46 [facility] Bilirubin UA Negative Negative 01/02/2024 19:46 [facility] Ketones UA Negative Negative 01/02/2024 19:46 [facility] Specific [place], Urine <=1.005 1.001 - 1.030 01/02/2024 19:46 [facility] Blood UA Negative Negative 01/02/2024 19:46 [facility] pH, UA 7.5 5.0 - 8.0 01/02/2024 19:46 [facility] Protein UA Negative Negative mg/dL 01/02/2024 19:46 EDT [facility] Urobilinogen UA 0.2 0.2-1.0 mg/dL mg/dL 01/02/2024 19:46 EDT [facility] Nitrite UA Negative Negative 01/02/2024 19:46 EDT [facility] Leukocyte Esterase UA Negative Negative 01/02/2024 19:46 EDT [facility] Urine URINE SPECIMEN OBTAINED BY CLEAN CATCH PROCEDURE / Unknown Urine Collect / Unknown 01/02/2024 19:37 EDT 01/02/2024 19:40 EDT Mone Tyler MD URINALYSIS ORDERABLE S Performing Organization Address City/State/[facility] Co de Phone Number [facility] [address] [place] [address] * NE CRITICAL CARE ILL/INJURED PATIENT INIT 30-74 MIN, HC - CRITICAL CARE ILL/INJURED PATIENT INIT 30-74 MIN (01/02/2024 19:21 EDT) Narrative [facility] EKG - 01/02/2024 19:21 EDT Mone Tyler [...] or life-threatening deterioration of the following conditions: ??MECHANICAL INSULATOR failure or compromise ??Critical care was time [...] ?Care discussed with: admitting provider ?? Mone Crawford MD PROCEDURE/MINOR SURG ICAL ORDERABLES [facility] EKG documented in this encounter Visit Diagnoses Diagnosis Aphasia due to acute cerebrovascular accident (CVA) ([facility])- Primary Aphasia due to acute cerebrovascular accident (CVA) (HCC-CMS) Acute cerebrovascular accident (CVA) (HCC-CMS) [I63.9] Expressive aphasia Aphasia TIA (transient ischemic attack) Unspecified transient cerebral ischemia Acute cerebrovascular accident (CVA) (HCC-CMS) Expressive aphasia Aphasia TIA (transient ischemic attack) Unspecified transient cerebral ischemia documented in this encounter Admitting Diagnoses Diagnosis Acute cerebrovascular accident (CVA) ([facility] documented in this encounter Administered Medications Inactive Administered Medications - up to 3 most recent administrations Medication Order MAR Action Action Date Dose Rate Site aspirin chewable tablet 81 mg 81 mg, oral, DAILY, First dose on Wed01/03/24 at 0900, Until Discontinued, Routine, Release Given 01/04/2024 11:31 EDT 81 mg Given 01/03/2024 9:57 EDT 81 mg aspirin tablet 325 mg 325 mg, oral, NOW X1, 1 dose, On Wed01/02/24 at 2045, Routine Given 01/02/2024 20:33 EDT 325 mg atorvastatin (LIPITOR) tablet 80 mg 80 mg, oral, AT BEDTIME, First dose on Wed01/02/24 at 2145, Until Discontinued, Routine, Release Given 01/03/2024 21:25 EDT 80 mg Given 01/02/2024 21:51 EDT 80 mg budesonide-formoterol HFA (SYMBICORT) 160-4.5 mcg/actuation inhaler 2 Puff 2 Puff, inhalation, 2 TIMES DAILY, First dose on Wed01/03/24 at 0900, Until Discontinued Given 01/03/2024 20:02 EDT 2 P uffs Given 01/03/2024 9:46 EDT 2 Puffs dorzolamide (TRUSOPT) 2 % ophthalmic solution 1 Drop 1 Drop, left eye, 2 TIMES DAILY, First dose on Wed01/03/24 at 0900, Until Discontinued, Routine Given 01/04/2024 11:48 EDT 1 Drop Given 01/03/2024 21:25 EDT 1 Drop Given 01/03/2024 9:58 EDT 1 Drop enoxaparin (LOVENOX) injection 40 mg 40 mg, subcutaneous, DAILY, First dose on Wed01/03/24 at 0900, Until Discontinued, Routine, Release Given 01/03/2024 9:57 EDT 40 mg iohexoL (OMNIPAQUE 350) solution 100 mL 100 mL, intravenous, Once in imaging, 1 dose, Starting on Wed01/02/24 at 1943, Until Wed01/02/24 at 1957, Routine Given 01/02/2024 19:57 EDT 100 mL lactulose (CHRONULAC) 20 gram/30 mL solution 30 mL 30 mL, oral, 4 TIMES DAILY, First dose on Wed01/03/24 at 1700, Until Discontinued, Routine Given 01/03/2024 21:25 EDT 3 0 mL Given 01/03/2024 16:58 EDT 30 mL latanoprost (XALATAN) 0.005 % ophthalmic solution 1 Drop 1 Drop, both eyes, AT BEDTIME, First dose on Wed01/03/24 at 0000, Until Discontinued, Routine Given 01/03/2024 21:25 EDT 1 Drop Given 01/03/2024 0:46 EDT 1 Drop levothyroxine (SYNTHROID) tablet 88 mcg 88 mcg, oral, DAILY, First dose on Wed01/03/24 at 0900, Until Discontinued, Routine Given 01/04/2024 11:30 EDT 88 mcg Given 01/03/2024 9:57 EDT 88 mcg LORazepam (ATIVAN) tablet 1 mg 1 mg, oral, ONCE PRN, 1 dose, Starting on Wed01/03/24 at 1020, Until Wed01/03/24 at 1144, Anxiety, prior to MRI, Routine Given 01/03/2024 11:44 EDT 1 mg olanzapine zydis (ZYPREXA) disintegrating tablet 10 mg 10 mg, oral, NOW X1, 1 dose, On Wed01/02/24 at 2000, Routine Given 01/02/2024 19:44 EDT 10 mg pantoprazole (PROTONIX) tablet 40 mg 40 mg, oral, DAILY, First dose on Wed01/03/24 at 0900, Until Discontinued, Routine Given 01/04/2024 11:31 EDT 40 mg Given 01/03/2024 9:57 EDT 40 mg rifAXIMin (XIFAXAN) tablet 200 mg 200 mg, oral, 3 TIMES DAILY, 21 doses, First dose on Wed01/03/24 at 1600, Last dose on Wed01/10/24 at 0900, Routine Given 01/04/2024 11:33 EDT 200 mg Given 01/03/2024 21:25 EDT 200 mg Given 01/03/2024 16:58 EDT 200 mg sodium chloride 0.9 % BOLUS 1,000 mL 1,000 mL, intravenous, NOW X1, 1 dose, On 01/02/24 at 2045, STAT New Bag 01/02/2024 20:36 EDT 1,000 mL traMADol (ULTRAM) tablet 50 mg 50 mg, oral, EVERY 6 HOURS PRN, Starting on Wed01/03/24 at 0035, Until Wed01/04/24 at 1626, Moderate Pain 4-6, Moderate pain documented in this encounter Discontinued Medications Medication Sig Discontinue Reason Start Date End Da te loratadine (CLARITIN) 10 mg tablet Take 10 mg by mouth daily. Error 05/04/2022 01/02/2024 montelukast (SINGULAIR) 10 mg tablet Take 10 mg by mouth daily. Error 04/08/2022 01/02/2024 montelukast (SINGULAIR) 10 mg tablet Take 10 mg by mouth every evening. Error 08/18/2021 01/02/2024 amoxicillin (AMOXIL) 500 mg capsule take 2 capsule by mouth now then 1 capsule every 8 hours Error 07/19/2023 01/02/2024 levothyroxine (SYNTHROID) 88 mcg tablet Take 1 Tablet by mouth daily. 08/21/2021 01/04/2024 losartan (COZAAR) 25 mg tablet Take 1 Tablet by mouth daily. 09/01/2022 01/04/2024 ibuprofen (MOTRIN) 800 mg tablet 1 tablet with food or milk as needed 01/04/2024 documented as of this encounter Active and Recently Administered Medications Times are shown in EDT. Scheduled Medication Order 01/02/2024 01/03/2024 01/04/2024 aspirin chewable tablet 81 mg 81 mg, oral, DAILY, First dose on Wed01/03/24 at 0900, Until Discontinued, Routine, Release 0957 (Given - Provider: Debby Chavez RN) 1131 (Given - Provider: Ada Albarado, RN) aspirin tablet 325 mg (COMPLETED) 325 mg, oral, NOW X1, 1 dose, On Wed01/02/24 at 204, Routine 2032 (Given - Provider: Leatha Erickson, NEL) atorvastatin (LIPITOR) tablet 80 mg 80 mg, oral, AT BEDTIME, First dose on Wed01/02/24 at 2145, Until Discontinued, Routine, Release 2150 (Given - Provider: Leatha Erickson, NEL) 2124 (Given - Provider: Leatha Erickson, NEL) budesonide-formoterol HFA (SYMBICORT) 160-4.5 mcg/actuation inhaler 2 Puff 2 Puff, inhalation, 2 TIMES DAILY, First dose on Wed01/03/24 at 0900, Until Discontinued 09 (Given - Provider: Linda Mills, RT)2001 (Given - Provider: Zulma Espino RT) 1138 (Not Given - Provider: Ada Albarado, NEL - Reason: Patient/family refused) dorzolamide (TRUSOPT) 2 % ophthalmic solution 1 Drop 1 Drop, left eye, 2 TIMES DAILY, First dose on Wed01/03/24 at 0900, Until Discontinued, Routine 957 (Given - Provider: Debby Chavez RN)2124 (Given - Provider: Leatha Erickson, NEL) 114 (Given - Provider: Ada Albarado, NEL) enoxaparin (LOVENOX) injection 40 mg 40 mg, subcutaneous, DAILY, First dose on Wed01/03/24 at 0900, Until Discontinued, Routine, Release 09 (Given - Provider: Debby Chavez RN) 113 (Not Given - Provider: Ada Albarado, RN - Reason: Patient/family refused) iohexoL (OMNIPAQUE 350) solution 100 mL (COMPLETED) 100 mL, intravenous, Once in imaging, 1 dose, Starting on Wed01/02/24 at 1943, Until Wed01/02/24 at 195, Routine 1956 (Given - Provider: Missy Schultz) lactulose (CHRONULAC) 20 gram/30 mL solution 30 mL 30 mL, oral, 4 TIMES DAILY, First dose on Wed01/03/24 at 1700, Until Discontinued, Routine 1658 (Given - Provider: Debby Chavez RN)2124 (Given - Provider: Leatha Erickson, NEL) 1138 (Not Given - Provider: Ada Albarado, NEL - Reason: Patient/family refused)1317 (Not Given - Provider: Ada Albarado, NEL - Reason: Patient/family refused) latanoprost (XALATAN) 0.005 % ophthalmic solution 1 Drop 1 Drop, both eyes, AT BEDTIME, First dose on Wed01/03/24 at 0000, Until Discontinued, Routine 0046 (Given - Provider: Che Solano, NEL)2124 (Given - Provider: Leatha Erickson, NEL) levothyroxine (SYNTHROID) tablet 88 mcg 88 mcg, oral, DAILY, First dose on Wed01/03/24 at 0900, Until Discontinued, Routine 956 (Given - Provider: Debby Chavez RN) 1130 (Given - Provider: Ada Albarado, NEL) olanzapine zydis (ZYPREXA) disintegrating tablet 10 mg (COMPLETED) 10 mg, oral, NOW X1, 1 dose, On Wed01/02/24 at 2000, Routine 194 (Given - Provider: Veronica Stapleton, NEL) pantoprazole (PROTONIX) tablet 40 mg 40 mg, oral, DAILY, First dose on Wed01/03/24 at 0900, Until Discontinued, Routine 956 (Given - Provider: Debby Chavez RN) 113 (Given - Provider: Ada Albarado, RN) rifAXIMin (XIFAXAN) tablet 200 mg 200 mg, oral, 3 TIMES DAILY, 21 doses, First dose on Wed01/03/24 at 1600, Last dose on Wed01/10/24 at 0900, Routine 1657 (Given - Provider: Debby Chavez RN)2124 (Given - Provider: Leatha Erickson, NEL) 1133 (Given - Provider: Ada Albarado, NEL)1400 (Canceled Entry - Provider: Batch Job User Admin - Comment: Automatically canceled at discontinue of medication order) sodium chloride 0.9 % BOLUS 1,000 mL (COMPLETED) 1,000 mL, intravenous, NOW X1, 1 dose, On Wed01/02/24 at 2045, STAT 2035 (New Bag - Provider: Leatha Erickson RN)2136 (Completed - Provider: Leatha Erickson RN) PRN Medication Order 01/02/2024 01/03/2024 01/04/2024 acetaminophen (TYLENOL) tablet 650 mg 650 mg, oral, EVERY 6 HOURS PRN, Starting on Wed01/02/24 at 2336, Until Wed01/04/24 at 1626, Pain, Fever, Routine calcium carbonate (TUMS) tablet 500 mg (200 mg elemental calcium) 1 Tablet 1 Tablet, oral, EVERY 6 HOURS PRN, Starting on Wed01/02/24 at 2336, Until Wed01/04/24 at 1626, Indigestion, Routine LORazepam (ATIVAN) tablet 1 mg (COMPLETED) 1 mg, oral, ONCE PRN, 1 dose, Starting on Wed01/03/24 at 1020, Until Wed01/03/24 at 1144, Anxiety, prior to MRI, Routine 1144 (Given - Provider: Blaine Chavez RN) ondansetron (PF) (ZOFRAN) injection 4 mg 4 mg, intravenous, EVERY 4 HOURS PRN, Starting on Wed01/02/24 at 2336, Until Wed01/04/24 at 1626, Nausea, Vomiting, Routine polyethylene glycol 3350 (MIRALAX) packet 17 g 17 g, oral, DAILY PRN, Starting on Wed01/02/24 at 2336, Until Wed01/04/24 at 1626, Constipation, Routine traMADol (ULTRAM) tablet 50 mg 50 mg, oral, EVERY 6 HOURS PRN, Starting on Wed01/03/24 at 0035, Until Wed01/04/24 at 1626, Moderate Pain 4-6, Moderate pain documented in this encounter Orders Medications Ordered That Justin ht Not Have Been Administered Count Last Ordered Date First Ordered Date traMADol (ULTRAM) tablet 50 mg 1 01/03/2024 acetaminophen (TYLENOL) tablet 650 mg 1 calcium carbonate (TUMS) tab let 500 mg (200 mg elemental calcium) 1 Tablet 1 01/02/2024 furosemide (LASIX) tablet 20 mg 1 ondansetron (PF) (ZOFRAN) injection 4 mg 1 01/02/2024 polyethylene glycol 3350 (NC RALAX) packet 17 g 1 01/02/2024 rifAXIMin (XIFAXAN) tablet 550 mg 1 024 Diet Count Last Ordered Date First Orde red Date DISCHARGE DIET 1 01/04/2024 Nursing Count Last Ordered Date First Orde red Date ACTIVITY INSTRUCTIONS 1 01/04/2024 BATHING INSTRUCTIONS 1 01/04/2024 DRIVING INSTRUCTIONS 1 01/04/2024 CALL HOSPITALIST FOR ADM/REF JUNIOR TO [facility] NURSE 1 01/02/2024 NURSING SWALLOW ASSESSMENT 2 01/02/2024 BROADCAST PROGRAM DIRECTOR Count Last Ordered Date First Orde red Date BROADCAST PROGRAM DIRECTOR COMMUNICATION EVALUATION AND TREAT 1 Admission Count Last Ordered Date First Orde red Date ADMIT TO INPATIENT 1 01/02/2024 Transfer Count Last Ordered Date First Orde red Date CONSULT TRANSFER CENTER (TRA NSFER/CONSULT TO OTHER FACILITY) 1 01/02/2024 ED BED REQUEST 1 01/02/2024 Discharge Count Last Ordered Date First Orde red Date DISCHARGE PATIENT 1 01/04/2024 Legal Count Last Ordered Date First Orde red Date MISCELLANEOUS DISCHARGE INSTRUCTIONS 2 12/16 documented in this encounter Care Teams Dairy Processing Equipment Operator Relationship Specialty Start Date End Date Jacinta Black APRN [address] [facility] [address] [place] [id number] PCP - General 09/26/21 documented as of this encounter
--- OUTSIDE RECORDS SUMMARY | 2024-01-11 15:25 | XMS_ITS | Encounter Summary ---
Author Organization [facility] Address [address] [place] [address] Care Team Providers Care Wastewater Treatment Plant Attendant Name Role Phone Rico Aburto MD Primary Care Provider [phone] Encounter Details Date Type Department Care Team (Late st Contact Info) Description 11/30/2019 Results Only [facility] [place] [address] [place], [place] [id number] Rico Aburto MD [address] [place] [id number] Social History Tobacco Use Types Packs/Day Years Used Date Smoking Tobacco: Never Assessed Sex and Gender Information Value Date Recorded Sex Assigned at Not on file Gender Identity Female 09/26/2021 10:51 EDT Sexual Orientation Not on file documented as of this encounter Plan of Treatment Upcoming Encounters Date Type Department Care Team (Late st Contact Info) Description 02/16/2024 13:50 EDT Appointment [facility] [address] [place], [place] [id number] documented as of this encounter Procedures Procedure Name Priority Date/Time Associated Diagnosis Comments CREATININE Routine 11/30/2019 12:47 EDT documented in this encounter Results * (ABNORMAL) CREATININE (11/30/2019 12:47 EDT) CREATININE 0.44(L) 0.52 - 1.04 mg/dL 11/30/2019 13:21 EDT [facility] eGFR >60 11/30/2019 13:21 EDT [facility] Comment: Chronic renal impairment is defined as GFR <60 Multiply result by 1.210 for patients. eGFR calculated using the IDMS-traceable MDRD Study Equation. ??(effective 03/19/2014) 11/30/2019 12:4 7 EDT 11/30/2019 12:47 EDT Narrative [facility] - 11/30/2019 13:21 EDT Does PT Have a Latex Allergy? NO Rico Aburto MD CHEMISTRY & BLOOD GA S ORDERABLES Performing Organization Address City/State/[place] Co de Phone Number [facility] [address] [place] [address] documented in this encounter Visit Diagnoses Not on filedocumented in this encounter Care Teams Wastewater Treatment Plant Attendant Relationship Specialty Start Date End Date Rico Aburto MD [address] [place], [place] [id number] PCP - General 11/01/19 09/25/21 documented as of this encounter
--- OUTSIDE RECORDS SUMMARY | 2024-01-11 15:26 | XMS_ITS | Encounter Summary ---
[place] [address] Care Team Providers Care Multi Mission Helicopter Aircrewman Name Role Phone Wayne Jacintabrittani Campbell APRN Primary Care Provider [phone] Encounter Details Date Type Department Care Team (Latest Contact Info) Description 02/16/2023 10:00 AM EDT TH Visit (TeleHealth) [place] [address] Neena Valadez MD [facility] [place] [address] Esophageal varices without bleeding, unspecified esophageal varices type; Portal vein thrombosis Social History Tobacco Use Types Packs/Day Years Used Date Smoking Tobacco: Never Smokeless Tobacco: Never Comments:never vape Alcohol Use Standard Drinks/Week Comments No 0 (1 standard drink = 0.6 oz pur e alcohol) Sex and Gender Information Value Date Recorded Sex Assigned at Not on file Gender Identity Not on file Sexual Orientation Not on file documented as of this encounter Progress Notes * Neena Valadez MD - 02/16/2023 10:00 AM EDT Gastroenterology and Hepatology Follow Up Note Patient: Amalia Moreira : 1950 Provider: Neena Valadez MD Problem List: Chronic portal vein thrombosis -occurred acutely 2010 during appendectomy/right hemicolectomy -briefly on anticoagulation -fibroscn 10/2021- steatosis, no fibrosis -esophageal/gastric varices noted on numerous CT scans -EGD 2019 with small varices- no history of variceal bleed -EGD 11/2021 large varices banded (primary prophylaxis) -EGD 12/2021 follow up banding -EGD 09/2022 small varices, not banded Intermittent epigastric pain since 2013 CT abd July 2021, September 2021 no clear cause found Upper EUS 11/2021 no cause of pain found Cystic 3.5cm lesion right posterior abdomen abutting posterior hemidiaphragm. Present since at least 2011 and stable in size over that time. Evaluated by surgical oncology 2019. Left adnexal cystic lesion- felt to be benign, evaluated by dba and no intervention indicated Adenomatous colon polyps- colo 11/2019, also need transanal excision of an adenomatous polyp after that colo; last colo 12/2022 EGD 11/2019- small hiatal hernia, schatzki's ring, small varices, normal stomach and duodenum Hysterectomy 1983- one ovary left in [facility] Appendix 2010 Asthma Obesity - BMI 30-34 Interval History: Ms Moreira comes in for follow up of portal htn from portal vein thrombosis. Continues to have episodic abdominal pain episodes- Sudden onset epigastrc pain followed by diarrhea sometimes. Pelvic floor physical therapy seems to have helped. She has tolerated variceal banding well.. She and her report ongoing memory issues that have been going on for years. She'll forget how a credit director of cardiac cath lab works, she'll forget how a car wash works, she won't remember a conversationafter 30 minutes. This has improved with rifaximin. She is using miralax for constipation. She stopped diuretics due to leg cramps, leg cramps resolved, but edema recurred and has been uncomfortable. Current Outpatient Medications Medication Sig Dispense Refill furosemide (Lasix) 20 mg tablet daily. meclizine (Antivert) 25 mg tablet Three times a day polyethylene glycol-electrolytes (NULYTELY) 420 gram Recon Soln spironolactone (Aldactone) 25 mg tablet Take 25 mg by mouth daily. rifAXIMin (Xifaxan) 550 mg tablet Take 1 tablet by mouth 2 times daily. 180 tablet 2 hyoscyamine SL (Levsin SL) 0.125 mg sublingual tablet Take 1 tablet by mouth every 4 hours as needed for Cramping. 30 tablet 1 multivitamin combination no.56 Tablet, Chewable Take by mouth. melatonin 5 mg tablet Take by mouth nightly. polyethylene glycoL (Miralax) 17 gram Powder in Packet Take 17 g by mouth daily. traMADoL (Ultram) 50 mg Tablet Take 1 tablet by mouth every 6 hours as needed for Pain. 10 tablet 0 cholecalciferol, Vitamin D3, 25 mcg (1,000 unit) Capsule Take by mouth. calcium carbonate (CALCIUM 600 ORAL) Take 1,200 Units by mouth. loratadine (Claritin) 10 mg Tablet Take 10 mg by mouth daily. fluticasone propionate (Flonase) 50 mcg/actuation [place], Suspension 1 spray daily. hypromellose (SYSTANE GEL OPHT) Apply to eye. fluticasone propion-salmeteroL (ADVAIR) 250-50 mcg/dose Disk with Device Inhale 1 puff into the lungs every 12 hours. magnesium 250 mg Tablet Take 330 mg by mouth. cetirizine (ZyrTEC) 5 mg Tablet every 24 hours. NAC 600 mg Capsule Take 2 capsules by mouth 2 times daily. atorvastatin (Lipitor) 20 mg Tablet Take 20 mg by mouth nightly. clobetasoL (Temovate) 0.05 % Cream 1 application to affected area cyclobenzaprine (Flexeril) 10 mg Tablet Take 10 mg by mouth nightly as needed. diclofenac (Voltaren) 1 % Gel APPLY A SMALL AMOUNT TO AFFECTED AREA TWICE DAILY NEEDED. USE SPARINGLY hydrOXYzine (Atarax) 25 mg Tablet Take 25 mg by mouth nightly. losartan (Cozaar) 25 mg Tablet Take 25 mg by mouth daily. pantoprazole EC (Protonix) 40 mg Tablet, Delayed Release (E.C.) Take 40 mg by mouth daily. montelukast (Singulair) 10 mg Tablet Take 10 mg by mouth every evening. ondansetron (Zofran) 4 mg Tablet Take 4 mg by mouth every 8 hours as needed. Spiriva with HandiHaler 18 mcg Capsule, w/Inhalation Device torsemide (Demadex) 10 mg Tablet levothyroxine (Synthroid) 88 mcg Tablet Take 88 mcg by mouth daily. DIRECTED ibuprofen (Advil;Motrin) 400 mg Tablet Take 800 mg by mouth daily. Patient takes 1/2 tab daily ondansetron ODT (Zofran ODT) 4 mg Tablet, Rapid Dissolve Take 1-2 tablets by mouth every 8 hours asneeded for Nausea. 30 tablet 1 Mometasone-Formoterol (Dulera) 200-5 mcg/actuation HFA Aerosol Inhaler Inhale 2 puffs into the lungs daily. docusate sodium (Colace) 100 mg Capsule Take 100 mg by mouth 2 times daily. acetaminophen (TYLENOL) 325 mg tablet Take 650 mg by mouth every 4 hours as needed. albuterol (PROVENTIL HFA;VENTOLIN HFA) 90 mcg/Actuation inhaler Inhale 1 puff into the lungs daily.Use with spacer No current facility-administered medications for this visit. There were no vitals filed for this visit. There is no height or weight on file to calculate BMI. Exam: Looks well Assessment and Plan: 72 y.o. female.with intermittent epigastric pain for many years. She reports this since 2019, but review of the chart shows she describes the same pain since 2014. This has been evaluated by multipleCT scans, endoscopy and EUS without a clear cause. I suspect this may be non ulcer dyspepsia. She should continue pantoprazole for possible reflux. She has had variceal banding to prevent bleeding from varices secondary to portal vein thrombus. Her memory issues may be early dementia. Hepatic encephalopathy can be seen with chronic PVTl. To see if HE is playing some role in memory issues I suggested Xifaxan for potential HE. Lactulose was not a good choice for her given chronic bowel issues. I think there has been some improvement in mental function and suspect she may have low grade HE on top of some other memory impairment process. Recommendations: I think we should try to continue the Rifaximin 550 bid for low grade HE EGD for variceal banding for varices secondary to chronic portal vein thrombosis in September/October when she returns from [place]. Edema- try spironolactone 50mg/day and continue to hold lasix (leg cramps) Time spent with patient: 35 min Time spent reviewing records, documentin min Neena Valadez MD Section of Gastroenterology & Hepatology [address] [place] [id number] Cc: Jacinta Black APRN documented in this encounter Plan of Treatment Scheduled Orders Name Type Priority Associated Diagnoses Orde r Schedule ENDOSCOPY CASE REQUEST: EGD, UPPER GI ENDOSCOPY (WRVU 2.09) Procedures Routine Esophageal varices without bleeding, unspecified esophageal varices type Portal vein thrombosis Ordered: 02/16/2023 Scheduled Procedures Name Priority Associated Diagnoses Date/Ti me EGD, UPPER GI ENDOSCOPY (WRV U 2.09) Esophageal varices without bleeding, unspecified esophageal varices type Portal vein thrombosis documented as of this encounter Visit Diagnoses Diagnosis Esophageal varices without bleeding, unspecified esophageal varices type Portal vein thrombosis documented in this encounter Care Teams Multi Mission Helicopter Aircrewman Relationship Specialty Start Date End Date Jacinta Black APRN [address] [place] [address] PCP - General Family Medicine 09/15/21 documented as of this encounter
--- OUTSIDE RECORDS SUMMARY | 2024-01-11 15:26 | XMS_ITS | Encounter Summary ---
[place] [address] Care Team Providers Care Seo Engineer Name Role Phone Jacinta Black APRN Primary Care Provider [phone] Encounter Details Date Type Department Care Team (Late st Contact Info) Description 02/16/2023 Telephone Obstetrics [place] [address] Asya Lara Social History Tobacco Use Types Packs/Day Years [...] as of this encounter Plan of Treatment Scheduled Procedures Name Priority Associated Diagnoses Date/Ti me EGD, UPPER GI ENDOSCOPY (WRV U 2.09) Esophageal varices without bleeding, unspecified esophageal varices type Portal vein thrombosis documented as of this encounter Visit Diagnoses Not on filedocumented in this encounter Care Teams Seo Engineer Relationship Specialty Start Date End Date Jacinta Black APRN [address] [place] [address] PCP - General Family Medicine 09/15/21 documented as of this encounter
--- OUTSIDE RECORDS SUMMARY | 2024-01-11 15:26 | XMS_ITS | Encounter Summary ---
[place] [address] Care Team Providers Care Marine Pipe Welder Name Role Phone Wayne Jacintabrittani Campbell APRN Primary Care Provider [phone] Reason for Visit * Reason Onset Date Comments Prior Authorization 07/17/2022 rifAXIMin (X ifaxan) 550 mg Tablet Encounter Details Date Type Department Care Team (Late st Contact Info) Description 07/17/2022 Telephone [place] [address] Yas Mackenzie LNA Prior Authorization (rifAXIMin (Xifaxan) 550 mg Tablet ) Social History Tobacco Use Types Packs/Day Years Used Date Smoking Tobacco: Never Smokeless Tobacco: Never Comments:never vape Alcohol Use Standard Drinks/Week Comments No 0 (1 standard drink = 0.6 oz pur e alcohol) Sex and Gender Information Value Date Recorded Sex Assigned at Not on file Gender Identity Not on file Sexual Orientation Not on file documented as of this encounter Miscellaneous Notes * Telephone Encounter - Yas Mackenzie LNA - 07/17/2022 3:01 PM EST Reply from Keisha via CM: Patient not covered by plan. Resubmitted to [employer] Medicare General Prescription Drug Coverage Determination Form Plan Contact phone fax [place]son: [id number] Lactulose-unable to use given GI Issues * Telephone Encounter - Yas Mackenzie LNA - 07/17/2022 2:50 PM ESTSummary: Submitted Medication Prior Authorization Patient: Amalia Moreira Patient : 1950 Insurance Company: [employer] Medicare Electronic PA Form Sent via: [employer] [place]: [id number] Physician: Neena Valadez MD Medication Requested:rifAXIMin (Xifaxan) 550 mg Tablet Frequency/Sig: Take 1 tablet by mouth 2 times daily. Disp: 60 tablets Refills: 3 Currently taking: yes If yes, how lon01/2022 Diagnosis for this medication: Hepatic encephalopathy K76.82 Prior medications trialed in this patient: Additional Notes: documented in this encounter Plan of Treatment Scheduled Procedures Name Priority Associated Diagnoses Date/Ti me EGD, UPPER GI ENDOSCOPY (WRV U 2.09) Esophageal varices without bleeding, unspecified esophageal varices type Portal vein thrombosis documented as of this encounter Visit Diagnoses Not on filedocumented in this encounter Care Teams Marine Pipe Welder Relationship Specialty Start Date End Date Jacinta Black APRN [address] [place] [address] PCP - General Family Medicine 09/15/21 documented as of this encounter
--- OUTSIDE RECORDS SUMMARY | 2024-01-11 15:26 | XMS_ITS | Encounter Summary ---
Author Organization [facility] Address [facility] [place] [address] Care Team Providers Care Shipyard Painter Name Role Phone Jacinta Black APRN Primary Care Provider [phone] Reason for Visit * Consultation (Routine) - Closed Specialty Diagnoses / Procedures Referred By Charan benson Referred To Contact Dermatology Diagnoses Skin lesion Jacinta Black APRN [address] [place] [address] [facility] [address] [place] [address] Referral ID Status Reason Start Date Expiration Date V isits Requested Visits Authorized [id number] Closed Consult, Test & Treat PCP Updated and/or Approved 10/13/2021 10/13/2022 12 12 Encounter Details Date Type Department Care Team (Late st Contact Info) Description 01/23/2022 3:40 PM EDT Office Visit Dermatology at [facility] [address] [place] [address] Rosy Etienne MD [facility] [address] [address] Xerosis cutis; Seborrheic keratoses Social History Tobacco Use Types Packs/Day Years [...] as of this encounter Progress Notes * Rosy Etienne MD - 01/23/2022 3:40 PM EDT Images from the original note were not included. DEPARTMENT OF DERMATOLOGY Medical Dermatology Clinic Note Provider: Rosy Etienne MD Patient's preferred name Lawanda Preferred contact method for results [x]Phone []myD-H []Letter Detailed phone message OK? Yes Are there any other people with whom we may discuss your care? Bo Moriera () Past Medical History Date, location, treatment Melanoma N Dysplastic nevi N SCC N BCC N AKs N UV Exposure & Protection Sun Protection: SPF 50 sunscreen (sport) Other relevant past medical history Thyroid disease Blood clot (portal vein) Family History Details Melanoma NMSC Other relevant family history Social History Occupation: Hobbies: Other: (, Bo) [employer] in [place] (leaves mid-February 2022) Lives 2 hours away Pre-Procedure Questions Details Allergy to lidocaine, epinephrine, Dermabond, chlorhexidine, or adhesives Bleeding disorder or blood thinners Implanted devices (Pacemaker, defibrillator, deep brain stimulator, cochlear implant) History of Present Illness: Amalia Moreira is a 71 y.o. Patient is referred to the clinic at the request of Jacinta Black for a full skin exam with the following concerns: - Spot of concern on the central chest. - Patient suffers from extreme itch on the upper to mid back. Review of Systems: General: Feeling well. Skin: No other skin concerns. Medications: Reviewed in eD-H Allergies: Reviewed in eD-H Skin Examination: Focused skin examination of the central chest was normal with the exception of the findings below. Assessment/Plan #. Seborrheic Keratosis - Stuck on, waxy papule on the central chest. - Discussed benign nature of lesions and provided reassurance. No treatment necessary at this time. - Discussed cosmetic treatment options for removal if desired in the future including LN2, quoted $100 as cost #. 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 - Recommended applying dilute vinegar (1 part white vinegar, 4 parts water) and OTC CeraVe SA or AmLactin for 1 week. - OR Recommended refrigerated OTC Sarna x1 week - After 1 week, if no improvement noted with any of the treatments above, apply OTC capsaicin 5x daily for one week, using gloves to apply with care not to touch face. Other: ??? Sun protection discussed (protective clothing and SPF30+ broad-spectrum sunscreen) and other OTC products discussed as above RTC: PRN []Note routed to alumnae secretary []Recall placed in scheduling system []Appointment scheduled at checkout Scribe attestation: Larry Lanier has performed the documentation for this encounter in the presence of and acting as a scribe for Rosy Etienne MD. I performed the above scribed service and agree with the accuracy of the documentation in this encounter. Reviewed and signed by: Rosy Etienne MD Dermatology [facility] Patient seen and evaluated with staff intellectual property paralegal: Radha Munguia MD Department of Dermatology [facility] * Radha Munguia MD - 01/23/2022 3:40 PM EDT I directly supervised Dr. Etienne during this office visit. Dr. Etienne presented the history and physical exam to me. I, then, saw and examined this patient with Dr. Etienne. We reviewed the history and pertinent details and I confirmed the physical findings. I agree with the details of the history and physical exam as documented in Dr. Etienne's note. RADHA MUNGUIA MD Staff Physician documented in this encounter Plan of Treatment Scheduled Procedures Name Priority Associated Diagnoses Date/Ti me EGD, UPPER GI ENDOSCOPY (WRV U 2.09) Esophageal varices without bleeding, unspecified esophageal varices type Portal vein thrombosis Scheduled Referrals Name Type Priority Associated Diagnoses Order Schedule Referral to Dermatology Outpatient Referral Routine Skin lesion Ordered: 10/13/2021 documented as of this encounter Visit Diagnoses Diagnosis Xerosis cutis Other specified disease of sebaceous glands Seborrheic keratoses documented in this encounter Care Teams Shipyard Painter Relationship Specialty Start Date End Date Jacinta Black APRN [address] [place] [address] PCP - General Family Medicine 09/15/21 documented as of this encounter
--- OUTSIDE RECORDS SUMMARY | 2024-01-11 15:26 | XMS_ITS | Encounter Summary ---
Author Organization [facility] [place] [address] Care Team Providers Care Assurance Manager Insurance Name Role Phone Jyotsna Blackbrittani Campbell APRN Primary Care Provider [phone] Encounter Details Date Type Department Care Team (Late st Contact Info) Description 12/22/2021 Orders [place] [id number] Yoni Tate MD [facility] [place] [address] Esophageal varices without bleeding, unspecified esophageal varices type Social History Tobacco Use Types Packs/Day Years [...] of this encounter Plan of Treatment Scheduled Orders Name Type Priority Associated Diagnoses Orde r Schedule ENDOSCOPY CASE REQUEST: EGD, UPPER GI ENDOSCOPY Procedures Routine Esophageal varices without bleeding, unspecified esophageal varices type Ordered: 12/22/2021 Scheduled Procedures Name Priority Associated Diagnoses Date/Ti me EGD, UPPER GI ENDOSCOPY (WRV U 2.09) Esophageal varices without bleeding, unspecified esophageal varices type Portal vein thrombosis documented as of this encounter Visit Diagnoses Diagnosis Esophageal varices without bleeding, unspecified esophageal varices type documented in this encounter Care Teams Assurance Manager Insurance Relationship Specialty Start Date End Date Jacinta Black, SENG [address] [place] [address] PCP - General Family Medicine 09/15/21 documented as of this encounter
--- OUTSIDE RECORDS SUMMARY | 2024-01-11 15:26 | XMS_ITS | Encounter Summary ---
[place] [address] Care Team Providers Care Fruit And Vegetable Parer Name Role Phone Jacinta Black SENG Primary Care Provider [phone] Encounter Details Date Type Department Care Team (Late st Contact Info) Description 10/05/2022 11:38 AM EDT Anesthesia [place] [address] Edwina Sahu MD [facility] [place] [address] Patrick Mckenzie MD [facility] [place] [address] Anesthesia Record Procedure Summary Procedure Name Responsible Anesthesiologist Anesthesia Start Time Anesthesia Stop Time EGD, UPPER GI ENDOSCOPY (WRVU 2.09) (Trunk) Edwina Sahu MD 10/05/22 1138 10/05/22 1206 Events Date Time Event Comment 10/05/2022 1135 1138 AN Verify 1138 Start 1138 An Start Data 1143 An Induction 1144 Anesthesia Ready 1200 an stop data 1206 Recovery or ICU Handoff Alana ent care was transferred to the destination unit staff after review of the patient's medical history, current anesthetic/surgical status and plan, according to the Provider Handoff Checklist. 1206 Stop Meds Name Total IV Lidocaine 50 mg Propofol 20 mg Propofol INF 80.01 mg * Agents Name O2 Auxiliary Flowmeter 1 * Blood No blood administrations on file. Lines, Drains, and Airways Type Details Placement Removal (RETIRED) Peripheral IV Line - Single Lumen 10/05/22; 1100; metacarpal vein (top of hand), right; [id number] catheter system; 22 gauge; adam young rn; distraction, tolerated well, appears comfortable 10/05/22 1100 by Ale Young RN documented in this encounter Social History Tobacco Use Types Packs/Day Years Used Date Smoking Tobacco: Never Smokeless Tobacco: Never Comments:never vape Alcohol Use Standard Drinks/Week Comments No 0 (1 standard drink = 0.6 oz pur e alcohol) Sex and Gender Information Value Date Recorded Sex Assigned at Not on file Gender Identity Not on file Sexual Orientation Not on file documented as of this encounter OR Notes * Anesthesia Postprocedure Evaluation - Edwina Sahu MD - 10/05/2022 1:48 PM EDT Department of Anesthesiology Post-procedure Note Patient: Amalia Moreira Procedure Summary Date: 10/05/22 Room / Location: [facility] 6 / [facility] Anesthesia Start: 1138 Anesthesia Stop: 1206 Procedure: EGD, UPPER GI ENDOSCOPY (WRVU 2.09) (Trunk) Diagnosis: Esophageal varices without bleeding, unspecified esophageal varices type (egd in 3 months follow up varices) Surgeons: Missy Diaz MD Responsible Provider: Edwina Sahu MD Anesthesia Type: MAC ASA Status: 3 All Anesthesia Providers: Anesthesiologist: Edwina Sahu MD Veneer Patcher: Patrick Mckenzie MD Vitals Value Taken Time BP Temp Pulse Resp SpO2 Pain Level Patient Location: PACU/[facility] Level of Consciousness: Conscious but Sleepy Pain Management: Satisfactory Analgesia PONV: None Cardiovascular Status: At Baseline Respiratory Status: Supplemental O2 (NC or FM) Postoperative Fluid Status: Intravascular EUvolemia Possible Anesthetic Complications: NONE apparent at time of evaluation Final Primary Anesthesia Type: MAC (The anesthetic type performed was the same as planned.) Comments: * Anesthesia Preprocedure Evaluation - Edwina Sahu MD - 10/04/2022 8:44 PM EDT Pre-Anesthesia Evaluation for: Amalia Moreira a 71 y.o. female. Procedure(s): EGD, UPPER GI ENDOSCOPY (WRVU 2.09) Patient Active Problem List Diagnosis Date Noted ??? Anal polyp 01/02/2020 ??? Simple ovarian cyst 11/27/2019 ??? Diffuse abdominal pain 11/27/2019 ??? Liver lesion 11/27/2019 ??? Abdominal pain, right upper quadrant 04/03/2011 ??? Hallucination, drug-induced 04/02/2011 ??? 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 Abdominal pain 03/28/2011 ??? Hypothyroid 03/28/2011 Past Medical History: Diagnosis Date ??? Asthma ??? GERD (gastroesophageal reflux disease) ??? Hypothyroid ??? IBS (irritable bowel syndrome) Past Surgical History: Procedure Laterality Date ??? APPENDECTOMY ??? CHOLECYSTECTOMY ??? HEMICOLECTOMY right ??? HYSTERECTOMY ??? OVARY REMOVAL right ??? PRG UNLISTED DIAGNOSTIC GASTROENTEROLOGY PROCEDURE 12/21/2013 VIDEO CAPSULE ENDOSCOPY performed by Kenrick Gonzalez MD at [facility]COPY ??? PRO COLONOSCOPY, DIAGNOSTIC 09/22/2011 COLONOSCOPY, DIAGNOSTIC performed by KENRICK GONZALEZ at [facility] ??? PRO COLONOSCOPY, DIAGNOSTIC 12/21/2013 COLONOSCOPY, DIAGNOSTIC performed by Kenrick Gonzalez MD at [facility] ??? PRO COLONOSCOPY, DIAGNOSTIC N/A 11/20/2019 COLONOSCOPY, DIAGNOSTIC performed by Yoni Tate MD at [facility] END[facility]COPY ??? PRO COLONOSCOPY, REMV LESN, SNARE N/A 11/20/2019 COLONOSCOPY, POLYPECTOMY, REMOVAL LESION BY SNARE (WRVU 4.67) performed by Yoni Tate MD at [facility] END[facility]COPY ??? PRO ENDOSCOPIC US EXAM, ESOPH N/A 12/02/2021 UPPER EUS- ENDOSCOPIC ULTRASOUND performed by Yoni Tate MD at [facility] ??? PRO EXC RECTAL TUMOR, TRANSANAL APPROACH, NOT INCL MUSCULARIS PROPRIA N/A 01/31/2020 EXCISION RECTAL TUMOR, TRANSANAL APPROACH, PARTIAL THICKNESS (WRVU 8.13) performed by Randi Silveira MD at [facility] OSC ??? PRO UPPER GI ENDOSCOPY, DIAGNOSTIC 11/07/2013 EGD, UPPER GI ENDOSCOPY performed by Rico Castro MD at [facility] ??? PRO UPPER GI ENDOSCOPY, DIAGNOSTIC 12/21/2013 EGD, UPPER GI ENDOSCOPY performed by Kenrick Gonzalez MD at [facility] ??? PRO UPPER GI ENDOSCOPY, DIAGNOSTIC N/A 11/20/2019 EGD, UPPER GI ENDOSCOPY performed by Yoni Tate MD at [facility] ??? PRO UPPER GI ENDOSCOPY, LIGAT VARIX N/A 12/02/2021 EGD, W BAND LIGATION OF ESOPHAGEAL/GASTRIC VARICES performed by Yoni Tate MD at [facility] ??? PRO UPPER GI ENDOSCOPY, LIGAT VARIX N/A 12/22/2021 EGD, W BAND LIGATION OF ESOPHAGEAL/GASTRIC VARICES performed by Yoni Tate MD at [facility] ??? UPPER GI ENDOSCOPY, EXAM 09/22/2011 UPPER GI ENDOSCOPY performed by KENRICK GONZALEZ at [facility] Social History Tobacco Use ??? Smoking status: Never ??? Smokeless tobacco: Never ??? Tobacco comments: never vape Substance Use Topics ??? Alcohol use: No Social History Substance and Sexual Activity Drug Use No Allergies Allergen Reactions ??? Percodan [Oxycodone-Aspirin] Other (See Comments) Severe dizziness ??? Dilaudid [Hydromorphone] hallucination ??? House Dust CIS - Allergic Rhinitis ??? Percocet [Oxycodone-Acetaminophen] Other (See Comments) Dizziness ??? Prednisone Other reaction(s): Unknown Medications: MAR and/or home medications have been reviewed. Physical Exam: Preprocedure Vitals Current as of 10/04/222043 No BP, pulse, respiration, SpO2, or temperature recorded. Height: Weight: BMI: IBW: Airway Assessment: Mallampati: II TM distance: >3 FB Neck ROM: full Cardiovascular Assessment: (-) systolic click system normal Pulmonary Assessment: unlabored breathing Dental Assessment: - normal exam Misc Assessment: IV access: Peripheral line Last Filed Perioperative Cognitive Screening None Anesthesia Plan: ASA 3 MAC, with a(n) intravenous induction Amalia Moreira is a 71 y.o. 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 No problems with MACs for EGD or GA in the past, previous anesthesia for bilateral total knees, camelia, appy, hemicolectomy, hysterectomy NPO adequate. No other recent illnesses/fevers. Activity tolerance: METS>4. Labs (reviewed): unremarkable Plan is for MAC / GA bad river band airway, standard ASA monitors, and adequate venous access Patrick Mckenzie MD 10/04/2022 Region - Other Informed Consent: Anesthetic plan and risks discussed with patient. Plan discussed with resident and attending. Anesthesia Screening Code Status: Full code I discussed the risks of anesthesia as detailed by the preoperative anesthesia consent with this patient. The patient demonstrated adequate understanding and acknowledged these risks and wishes to proceed with scheduled surgery. All questions related to anesthetic care were welcomed and answered to satisfaction. Edwina Sahu MD MS Anesthesiologist, [employer] Pager [phone] documented in this encounter Plan of Treatment Scheduled Procedures Name Priority Associated Diagnoses Date/Ti mt EGD, UPPER GI ENDOSCOPY (WRV U 2.09) Esophageal varices without bleeding, unspecified esophageal varices type Portal vein thrombosis documented as of this encounter Visit Diagnoses Not on filedocumented in this encounter Administered Medications Inactive Administered Medications - up to 3 most recent administrations Medication Order MAR Action Action Date Dose Rate Site lidocaine (pf) (Xylocaine) (20 mg/mL) 2% injection syringe Intravenous, PRN, Starting on Wed10/05/22 at 1141, Until Wed10/05/22 at 1206, Anesthesia Intra-op, Routine Given 10/05/2022 11:41 AM EDT 50 mg propofoL (Diprivan) (10 mg/mL) infusion Intravenous, CONTINUOUS PRN, Starting on Wed10/05/22 at 1143, Until Wed10/05/22 at 1206, Anesthesia Intra-op, Routine Rate/Dose Change 10/05/2022 11:46 AM EDT 150 mcg/kg/min 68.58 mL/hr New Bag 10/05/2022 11:43 AM EDT 200 mcg/kg/min 91.44 mL /hr propofoL (Diprivan) 10 mg/mL bolus injection (Anesthesia) Intravenous, PRN, Starting on Wed10/05/22 at 1144, Until Wed10/05/22 at 1206, Anesthesia Intra-op Given 10/05/2022 11:44 AM EDT 20 mg documented in this encounter Care Teams Fruit And Vegetable Parer Relationship Specialty Start Date End Date Jacinta Black, SENG [address] [place] [address] PCP - General Family Medicine 09/15/21 documented as of this encounter
--- OUTSIDE RECORDS SUMMARY | 2024-01-11 15:26 | XMS_ITS | Encounter Summary ---
[place] [address] Care Team Providers Care Auto Tune Up Mechanic Name Role Phone Jaicnta Black APRN Primary Care Provider [phone] Encounter Details Date Type Department Care Team (Latest Contact Info) Description 02/17/2023 Travel Social History Tobacco Use Types Packs/Day [...] on filedocumented in this encounter Care Teams Auto Tune Up Mechanic Relationship Specialty Start Date End Date Jacinta Black APRN [address] [place] [address] PCP - General Family Medicine 09/15/21 documented as of this encounter
--- OUTSIDE RECORDS SUMMARY | 2024-01-11 15:26 | XMS_ITS | Encounter Summary ---
[place] [address] Care Team Providers Care Telecom Billing Analyst Name Role Phone Shobha Blackyn Shannan SENG Primary Care Provider [phone] Encounter Details Date Type Department Care Team (Late st Contact Info) Description 12/03/2022 Telephone [place] [id number] Zohreh Rodriguez Social History Tobacco Use Types Packs/Day Years [...] encounter Miscellaneous Notes * Telephone Encounter - Zohreh Rodriguez - 12/03/2022 10:34 AM EDT Amalia Moreira [id number] Diagnosis/Indication: Repeat colonoscopy in 3 years for surveillance based on pathology results. Please review patient chart to confirm if previous Endoscopy procedure was performed within system. If yes, take note of Anesthesia type used. If previous procedure found, and with MAC/propofol Anesthesia support was used, schedule this procedure with Anesthesia and skip the Anesthesia portion of questions. If not performed within system, not performed at all, or performed with IVCS, ask Anesthesia questions. SCHEDULING QUESTIONS (ask all patient these questions) Have you ever had a/an Colonoscopy before? Yes: Date 11/20/2019 If yes, did you have any problems with the procedure (such as waking up during the procedure, pain or difficulties afterwards, etc.)? No What type of sedation was used: IV Conscious Sedation Do you take any blood thinners or have you been diagnosed with a bleeding disorder that increases your risk of bleeding with procedures? No Do you have a Pacemaker or Defibrillator device? If yes, send pool message to Cardiology with patient information and date or procedure. No Are you a diabetic? If yes, call PCP/managing provider to discuss use of prep and any questions or concerns related to. No Do you take any iron supplements or vitamins that contain iron? No Do you have a preference regarding the gender of your provider? Yes Dr. Tate 1st choice FEMALE 2nd choice ANESTHESIA QUESTIONS (YES to any question, please book with Anesthesia support) Have you ever been diagnosed with Pulmonary Hypertension and/or Congential Heart Disease? No Have you been diagnosed with A-Fib (atrial fibrillation) that is NOT being well controled with medications? No Have you ever had an allergic or adverse reaction to Fentanyl or Versed? No Have you had a problem with sedation or anesthesia? (Waking up during procedure, extreme confusion after, etc.) No Do you have a diagnosis of Obstructive Sleep Apnea that requires the use of a c- pap machine? No Do you use an oxygen tank at home? No Do you use a rescue inhaler more than twice per day? (COPD, severe asthma) No Do you experience breathing problems when you lay flat for a period of time? No Do you take prescription narcotic pain medications, including suboxone or methodone? Yes PRN traMADol SCHEDULING CONFIRMATIONS: Please note any and all parts of your conversation with the patient here. We offer all new patients an opportunity to have an appointment with one of our associate care providers to learn more about your upcoming procedure, ask questions and get answers. These appointmentsare offered via telehealth. Would you be interested in scheduling this appointment? (Only ask if NEW referral patient; skip this question if GI provider ordered the procedure.) No Is there any other information or concerns you would like to us to share with your care team in relation to your upcoming scheduled procedure? No You must have a responsible libertarian who will drive you to your procedure, stay on campus for the entire duration of your procedure, and drive you home from your procedure. Who will likely be your water taxi driver for the procedure? *Please Verify the height and weight, and adjust if height and/or weight have changed* Estimated body mass index is 30.24 kg/m?? as calculated from the following: Height as of 10/05/22: 158.8 cm (5' 2.5). Weight as of 10/05/22: 76.2 kg (168 lb). *Patient must be scheduled for Anesthesia support if BMI is 40 or above* Age:72 y.o. documented in this encounter Plan of Treatment Scheduled Procedures Name Priority Associated Diagnoses Date/Ti me EGD, UPPER GI ENDOSCOPY (WRV U 2.09) Esophageal varices without bleeding, unspecified esophageal varices type Portal vein thrombosis documented as of this encounter Visit Diagnoses Not on filedocumented in this encounter Care Teams Telecom Billing Analyst Relationship Specialty Start Date End Date Jacinta Black APRN [address] [place] [address] PCP - General Family Medicine 09/15/21 documented as of this encounter
--- OUTSIDE RECORDS SUMMARY | 2024-01-11 15:26 | XMS_ITS | Encounter Summary ---
[place] [address] Care Team Providers Care Senior Data Scientist Name Role Phone Shobha Blackyn Shannan SENG Primary Care Provider [phone] Encounter Details Date Type Department Care Team (Latest Contact Info) Description 10/05/2022 9:42 AM EDT - 10/05/2022 12:47 PM EDT Hospital Encounter [place] [address] Missy Diaz MD [facility] [place] [address] Discharge Disposition: Home Social History Tobacco Use Types Packs/Day Years Used Date Smoking Tobacco: Never Smokeless Tobacco: Never Tobacco Cessation:Counseling Given: Not Answered Comments:never vape Alcohol Use Standard Drinks/Week Comments No 0 (1 standard drink = 0.6 oz pur e alcohol) Sex and Gender Information Value Date Recorded Sex Assigned at Not on file Gender Identity Not on file Sexual Orientation Not on file documented as of this encounter Last Filed Vital Signs Vital Sign Reading Time Taken Comments Blood Pressure 138/63 10/05/2022 10:33 AM EDT Pulse 63 10/05/2022 10:33 AM EDT Temperature 36.6 ??C (97.9 ??F) 10/05/2022 10:33 AM E DT Respiratory Rate - - Oxygen Saturation 96% 10/05/2022 10:33 AM EDT Inhaled Oxygen Concentration - - Weight 76.2 kg (168 lb) 10/05/2022 10:33 AM EDT Height 158.8 cm (5' 2.5) 10/05/2022 10:33 AM ED T Body Mass Index 30.24 10/05/2022 10:33 AM EDT documented in this encounter Medications at Time of Discharge Medication Sig Dispensed Refills Start Date End Date multivitamin combination no.56 Tablet, Chewable Take by mouth. melatonin 5 mg tablet Take by mouth nightly. polyethylene glycoL (Miralax) 17 gram Powder in Packet Take 17 g by mouth daily. traMADoL (Ultram) 50 mg Tablet Take 1 tablet by mouth every 6 hours as needed for Pain. 10 tablet 12/02/2021 cholecalciferol, Vitamin D3, 25 mcg (1,000 unit) Capsule Take by mouth. calcium carbonate (CALCIUM 600 ORAL) Take 1,200 Units by mouth. loratadine (Claritin) 10 mg Tablet Take 10 mg by mouth daily. fluticasone propionate (Flonase) 50 mcg/actuation Owen, Suspension 1 spray daily. hypromellose (SYSTANE GEL OPHT) Apply to eye. fluticasone propion-salmeteroL (ADVAIR) 250-50 mcg/dose Disk with Device Inhale 1 puff into the lungs every 12 hours. magnesium 250 mg Tablet Take 330 mg by mouth. cetirizine (ZyrTEC) 5 mg Tablet every 24 hours. NAC 600 mg Capsule Take 2 capsules by mouth 2 times daily. 09/29/2021 atorvastatin (Lipitor) 20 mg Tablet Take 20 mg by mouth nightly. 09/22/2021 clobetasoL (Temovate) 0.05 % Cream 1 application to affected area cyclobenzaprine (Flexeril) 10 mg Tablet Take 10 mg by mouth nightly as needed. 09/23/2021 diclofenac (Voltaren) 1 % Gel APPLY A SMALL AMOUNT TO AFFECTED AREA TWICE DAILY NEEDED. USE SPARINGLY 09/29/2021 hydrOXYzine (Atarax) 25 mg Tablet Take 25 mg by mouth nightly. 06/26/2021 losartan (Cozaar) 25 mg Tablet Take 25 mg by mouth daily. 08/18/2021 pantoprazole EC (Protonix) 40 mg Tablet, Delayed Release (E.C.) Take 40 mg by mouth daily. 09/12/2021 montelukast (Singulair) 10 mg Tablet Take 10 mg by mouth every evening. 08/18/2021 ondansetron (Zofran) 4 mg Tablet Take 4 mg by mouth every 8 hours as needed. 08/18/2021 Spiriva with HandiHaler 18 mcg Capsule, w/Inhalation Device 05/19/2021 torsemide (Demadex) 10 mg Tablet 12/23/2020 levothyroxine (Synthroid) 88 mcg Tablet Take 88 mcg by mouth daily. DIRECTED 08/21/2021 ibuprofen (Advil;Motrin) 400 mg Tablet Take 800 mg by mouth daily. Patient takes 1/2 tab daily ondansetron ODT (Zofran ODT) 4 mg Tablet, Rapid Dissolve Take 1-2 tablets by mouth every 8 hours as needed for Nausea. 30 tablet 1 11/03/2019 Mometasone-Formoterol (Dulera) 200-5 mcg/actuation HFA Aerosol Inhaler Inhale 2 puffs into the lungs daily. docusate sodium (Colace) 100 mg Capsule Take 100 mg by mouth 2 times daily. acetaminophen (TYLENOL) 325 mg tablet Take 650 mg by mouth every 4 hours as needed. albuterol (PROVENTIL HFA;VENTOLIN HFA) 90 mcg/Actuation inhaler Inhale 1 puff into the lungs daily. Use with spacer hyoscyamine SL (Levsin SL) 0.125 mg sublingual tablet Take 1 tablet by mouth every 4 hours as needed for Cramping. 30 tablet 1 09/30/2022 10/19/2022 rifAXIMin (Xifaxan) 550 mg Tablet Take 1 tablet by mouth 2 times daily. 60 tablet 3 02/25/2022 11/12/2022 documented as of this encounter H&P Notes * Missy Diaz MD - 10/05/2022 11:08 AM EDT Patient Name: Amalia Moreira Patient Age: 71 y.o. Birthdate: 1950 Admit date: 10/05/2022 Attending Physician: Missy Diaz MD Gastroenterology and Hepatology Pre-Procedure History and Physical Exam Procedure: EGD: Indication: f/u esophageal varices Patient Active Problem List Diagnosis Code ??? Abdominal pain R10.9 ??? Hypothyroid E03.9 ??? 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 Hallucination, drug-induced F19.951 ??? Abdominal pain, right upper quadrant R10.11 ??? Simple ovarian cyst N83.209 ??? Diffuse abdominal pain R10.84 ??? Liver lesion K76.9 ??? Anal polyp K62.0 EXAM: HEENT: Airway examined, oropharynx clear Mallampati Score: II (soft palate, uvula, fauces visible) LUNGS: Clear to auscultation HEART: Regular rate and rhythm, normal S1, S2 ABDOMEN: Normal bowel sounds, soft, non tender, non distended, A/P Proceed with the planned endoscopic procedure. ASA 2 - Patient with mild systemic disease with no functional limitations Sedation Plan: anesthesia Risks and benefits of the procedure explained to the patient. Consent signed. documented in this encounter Plan of Treatment Scheduled Procedures Name Priority Associated Diagnoses Date/Ti me EGD, UPPER GI ENDOSCOPY (WRV U 2.09) Esophageal varices without bleeding, unspecified esophageal varices type Portal vein thrombosis documented as of this encounter Procedures Procedure Name Priority Date/Time Associated Diagnosis Comments Upper GI Endoscopy, Diagnostic (99249) 10/05/2022 11:39 AM EDT Esophageal varices without bleeding, unspecified esophageal varices type UPPER GI ENDOSCOPY Routine 10/05/2022 11 :32 AM EDT documented in this encounter Results * UPPER GI ENDOSCOPY (10/05/2022 11:32 AM EDT) UPPER GI ENDOSCOPY [facility] Endoscopy ___ Procedure Date: 10/05/2022 11:32 AM ? Patient Name: Amalia Moreira ? Date of : 1950 ? Age: 71 ? Order #: [id number] ? Instrument Name: [id number] ? ___ Procedure: ? Upper GI endoscopy Indications: ? Follow-up of esophageal varices Providers: ? Missy Diaz MD, Mikael Matthews ? NEL Edmondson, Iona Reyes MD: ?Jacinta Black Medicines: ? Monitored Anesthesia Care Complications: ? No immediate complications. ___ Procedure: ? Pre-Anesthesia Assessment: ? - Prior to the procedure, a History ? and Physical was performed, and ? patient medications and allergies ? were reviewed. The patient's ? tolerance of previous anesthesia ? was also reviewed. The risks and ? benefits of the procedure and the ? sedation options and risks were ? discussed with the patient. All ? questions were answered, and ? informed consent was obtained. ? Prior Anticoagulants: The patient ? has taken no anticoagulant or ? antiplatelet agents. ASA Grade ? Assessment: II - A patient with ? mild systemic disease. After ? reviewing the risks and benefits, ? the patient was deemed in ? satisfactory condition to undergo ? the procedure. ? The procedure, indications, ? benefits, risks and alternatives ? were explained to the patient. ? Specifically discussed were ? potential complications including, ? but not limited to, bleeding, ? perforation, infection, missing a ? cancer, and adverse medication ? reactions. The Endoscope was ? introduced through the mouth, and ? advanced to the second part of ? duodenum The upper GI endoscopy was ? accomplished without difficulty. ? The patient tolerated the procedure ? well. ? Findings: ? Esophagogastric landmarks were identified: the Z-line ? was found at 35 cm, the upper extent of the gastric ? folds was found at 35 cm and the site of hiatal ? narrowing was found at 37 cm from the incisors. ? One column of small (< 5 mm) varices were found in ? the lower third of the esophagus. Scarring from prior ? treatment was visible. ? A widely patent Schatzki ring was found at the ? gastroesophageal junction. ? Mild portal hypertensive gastropathy was found in the ? gastric body. ? The examined duodenum was normal. ? Moderate Sedation: ? Not applicable - See Anesthesia documentation Impression: ?- Esophagogastric landmarks ? identified. ? - Small (< 5 mm) esophageal varices. ? - Widely patent Schatzki ring. ? - Portal hypertensive gastropathy. ? - Normal examined duodenum. ? - No specimens collected. Recommendation: ?- Repeat upper endoscopy in 6 ? months for surveillance. ? - Return to referring physician. ? Procedure Code(s): ? --- Professional --- ? 94945, Esophagogastroduode noscopy, ? flexible, transoral; diagnostic, ? including collection of specimen(s) ? by brushing or washing, when ? performed (separate procedure) CPT copyright 2020 [employer]. All rights reserved. The codes documented in this report are preliminary and upon stripper and opaquer apprentice review may be revised to meet current compliance requirements. Attending Participation: ? I personally performed the entire procedure. ? Missy Diaz MD Missy Diaz MD 10/05/2022 11:57:03 AM This report has been signed electronically. Number of Addenda: 0 Note Initiated On: 10/05/2022 11:32 AM PROVATION 10/05/2022 11:3 2 AM EDT Jacinta Black APRN GENERAL SURGICAL ORDERABLES PROVATION documented in this encounter Visit Diagnoses Not on filedocumented in this encounter Administered Medications Inactive Administered Medications - up to 3 most recent administrations Medication Order MAR Action Action Date Dose Rate Site lactated ringers infusion 1,000 mL, at 100 mL/hr, Intravenous, CONTINUOUS, Starting on Wed10/05/22 at 1100, Until Wed10/05/22 at 1447, Day of Surgery (Day of Procedure) New Bag 10/05/2022 11:00 AM EDT 1,000 mLs 100 mL/hr documented in this encounter Active and Recently Administered Medications Times are shown in EDT. Continuous Medication Order 10/03/2022 10/04/2022 10/05/2022 lactated ringers infusion 1,000 mL, at 100 mL/hr, Intravenous, CONTINUOUS, Starting on Wed10/05/22 at 1100, Until Wed10/05/22 at 1447, Day of Surgery (Day of Procedure) 1100 (New Bag - Prov ider: Ale Julio RN) documented in this encounter Care Teams Senior Data Scientist Relationship Specialty Start Date End Date Jacinta Black APRN [address] [place] [address] PCP - General Family Medicine 09/15/21 documented as of this encounter
--- OUTSIDE RECORDS SUMMARY | 2024-01-11 15:26 | XMS_ITS | Encounter Summary ---
[place] [address] Care Team Providers Care Auto Adjudication Specialist Name Role Phone Jacinta Black APRN Primary Care Provider [phone] Reason for Visit * Reason Comments Medication Refill Encounter Details Date Type Department Care Team (Late st Contact Info) Description 03/09/2023 Refill [place] [address] Neena Valadez MD [facility] [place] [address] Hepatic encephalopathy Social History Tobacco Use Types Packs/Day Years [...] as of this encounter Visit Diagnoses Diagnosis Hepatic encephalopathy documented in this encounter Care Teams Auto Adjudication Specialist Relationship Specialty Start Date End Date Jacinta Black APRN [address] [place] [address] PCP - General Family Medicine 09/15/21 documented as of this encounter
--- OUTSIDE RECORDS SUMMARY | 2024-01-11 15:26 | XMS_ITS | Encounter Summary ---
Author Organization [facility] Address [address] [place] [address] Care Team Providers Care Commercial Announcer Name Role Phone Unavailable Primary Care Provider Unavailabl e Encounter Details Date Type Department Care Team (Late st Contact Info) Description 09/11/2004 Results Only [facility] [address] [place] [address] Garret Kinney MD [address] [place] [id number] Social History Tobacco Use Types Packs/Day Years Used Date Smoking Tobacco: Never Assessed Sex and Gender Information Value Date Recorded Sex Assigned at Not on file Gender Identity Female 09/26/2021 10:51 EDT Sexual Orientation Not on file documented as of this encounter Plan of Treatment Upcoming Encounters Date Type Department Care Team (Late st Contact Info) Description 02/16/2024 13:50 EDT Appointment [facility] Mammography [address] [place] [address] documented as of this encounter Procedures Procedure Name Priority Date/Time Associated Diagnosis Comments SURGICAL PATHOLOGY Routine 09/11/2004 0:00 EDT documented in this encounter Results * SURGICAL PATHOLOGY (09/11/2004 0:00 EDT) Pathology Report: SURGICAL PATHOLOGY REPORT Reports generated via electronic interface contain original data; however they are lacking the format of the original report. Caution should be taken when reading/interpreti ng unformatted reports. Name: ? AMALIA MOREIRA ? Accession #: ? [id number] ? : ? 1950 (Age: 53) ??F ? Collect Date: ? 09/11/2004 ? Location: ? [facility] ? Receive Date: ? 09/12/2004 ? Provider: GARRET KINNEY MD Copy to: MARIO WU FOOD STOREROOM CLERK ? Final Pathologic Diagnosis: ? Gallbladder, cholecystectomy: 1. ?Chronic cholecystitis. 2. ?Cholelithiasis. 3. ?Cholesterolosis. Document reviewed and electronically signed by: LILLIE DIMAS MD Report ??Date: 09/18/2004 07:45 By the signature above, the attending physician certifies that he/she has personally conducted a gross and/or microscopic examination of the described specimens and rendered or confirmed the above diagnosis. Specimen(s) Received: ? Gallbladder Clinical History: ? Biliary colic Gross Description: ? Received in formalin labelled North and gallbladder is the product of a cholecystectomy enveloped in a plastic laparoscopic recovery bag. ??The specimen includes gallbladder (4.5 x 2.7 x 0.9 cm) and proximal portion of cystic duct (0.6 cm in length by 0.5 cm in diameter). ??Separately received within the container are multiple, mixed-type choleliths. ??The cystic duct is patent. ??The gallbladder mucosa is brown-green with numerous yellow speckles. ??The gallbladder wall measures 0.3 to 0.4 cm in thickness. ??The serosal surface is smooth and banuelos-pink. ??A cystic duct lymph node is not identified. ??The cystic duct margin and two delivery representative sections of gallbladder mucosa is submitted in one cassette. ??(Dr. Oconnor-)/[facility] End of Report [facility] 09/11/2004 09/12/2004 14: 56 EDT Garret Kinney MD PATHOLOGY ORDERABLE S ELYSE MARQUEZ [address] [place] [address] documented in this encounter Visit Diagnoses Not on filedocumented in this encounter
--- OUTSIDE RECORDS SUMMARY | 2024-01-11 15:26 | XMS_ITS | Encounter Summary ---
[place] [address] Care Team Providers Care Integrated Circuit Fabricator Name Role Phone Shobha Blackyn Shannan SENG Primary Care Provider [phone] [phone] Encounter Details Date Type Department Care Team (Late st Contact Info) Description 10/05/2022 11:00 AM EDT - 10/05/2022 11:30 AM EDT [place] [address] Missy Diaz MD [facility] [place] [address] EGD, UPPER GI ENDOSCOPY (WRVU 2.09) Social History Tobacco Use Types Packs/Day Years [...] mouth daily. fluticasone propionate (Flonase) 50 mcg/actuation Alvin, Suspension 1 spray daily. hypromellose (SYSTANE GEL [...] Associated Diagnosis Comments Upper GI Endoscopy, Diagnostic (84249) 10/05/2022 11:39 AM EDT Esophageal varices without bleeding, unspecified esophageal varices type UPPER GI ENDOSCOPY Routine 10/05/2022 11 :32 AM EDT documented in this encounter Results * UPPER GI ENDOSCOPY (10/05/2022 11:32 AM EDT) UPPER GI ENDOSCOPY [facility] ___ Procedure Date: 10/05/2022 11:32 AM ? Patient Name: Amalia Moreira ? Date of : 1950 ? Age: 71 ? Order #: [id number] ? Instrument Name: [id number] ? ___ Procedure: ? Upper GI endoscopy [...] Procedure Code(s): ? --- Professional --- ? 06463, Esophagogastroduode noscopy, ? flexible, transoral; diagnostic, ? including collection of specimen(s) ? by brushing or washing, when ? performed (separate procedure) CPT copyright 2020 [employer]. All rights reserved. The codes documented in this report are preliminary and upon field servicer review may be revised to meet current compliance requirements. Attending Participation: ? I personally performed the entire procedure. ? Missy Diaz MD Missy Diaz MD 10/05/2022 11:57:03 AM This report has been signed electronically. Number of Addenda: 0 Note Initiated On: 10/05/2022 11:32 AM PROVATION 10/05/2022 11:3 2 AM EDT Jacinta Black APRN GENERAL SURGICAL ORDERABLES PROVATION documented in this encounter Visit Diagnoses Diagnosis Esophageal varices without bleeding, unspecified esophageal varices type documented in this encounter Administered Medications Inactive [...] RN) documented in this encounter Care Teams Integrated Circuit Fabricator Relationship Specialty Start Date End Date Jacinta Black APRN [address] [place] [address] PCP - General Family Medicine 09/15/21 documented as of this encounter
--- OUTSIDE RECORDS SUMMARY | 2024-01-11 15:26 | XMS_ITS | Encounter Summary ---
[place] [address] Care Team Providers Care Cyber Crime Investigator Name Role Phone Jacinta Black APRN Primary Care Provider [phone] Encounter Details Date Type Department Care Team (Late st Contact Info) Description 09/30/2022 Telephone [place] [address] Sri Rome Social History Tobacco Use Types Packs/Day Years [...] encounter Miscellaneous Notes * Telephone Encounter - Sri Rome - 09/30/2022 4:50 PM EDT Called pt and LVM pt needs FUV w/ around Feb 2023 PLEASE SCHEDULE FROM RECALL documented in this encounter Plan of Treatment Scheduled Procedures Name Priority Associated Diagnoses Date/Ti me EGD, UPPER GI ENDOSCOPY (WRV U 2.09) Esophageal varices without bleeding, unspecified esophageal varices type Portal vein thrombosis documented as of this encounter Visit Diagnoses Not on filedocumented in this encounter Care Teams Cyber Crime Investigator Relationship Specialty Start Date End Date Jacinta Black APRN [address] [place] [address] PCP - General Family Medicine 09/15/21 documented as of this encounter
--- OUTSIDE RECORDS SUMMARY | 2024-01-11 15:26 | XMS_ITS | Encounter Summary ---
[place] [address] Care Team Providers Care Acute Care Certified Nursing Assistant Name Role Phone Shobha Blackyn Shannan SENG Primary Care Provider [phone] [phone] Encounter Details Date Type Department Care Team (Latest Contact Info) Description 01/01/2023 7:54 AM EDT - 01/01/2023 11:08 AM EDT Hospital Encounter [place] [address] Yoni Tate MD [facility] [place] [address] Discharge Disposition: Home Social History Tobacco Use [...] Sign Reading Time Taken Comments Blood Pressure 119/68 01/01/2023 10:30 AM EDT Pulse 77 01/01/2023 8:10 AM EDT Temperature 36.8 ??C (98.2 ??F) 01/01/2023 8:10 AM ED T Respiratory Rate 18 01/01/2023 10:30 AM EDT Oxygen Saturation 96% 01/01/2023 10:35 AM EDT Inhaled Oxygen Concentration - - Weight - - Height - - Body Mass Index - - documented in this encounter Medications at Time of Discharge Medication Sig Dispensed Refills Start Date End Date furosemide (Lasix) 20 mg tablet daily. 12/11/2022 meclizine (Antivert) 25 mg tablet Three times a day 10/20/2022 polyethylene glycol-electrolytes (NULYTELY) 420 gram Recon Soln 12/11/2022 spironolactone (Aldactone) 25 mg tablet Take 25 mg by mouth daily. hyoscyamine SL (Levsin SL) 0.125 mg sublingual tabletIndications:Epiga stric pain Take 1 tablet by mouth every 4 hours as needed for Cramping. 30 tablet 1 10/19/2022 multivitamin combination no.56 Tablet, Chewable Take by [...] mouth daily. fluticasone propionate (Flonase) 50 mcg/actuation [place], Suspension 1 spray daily. hypromellose (SYSTANE GEL [...] into the lungs daily. Use with spacer rifAXIMin (Xifaxan) 550 mg tabletIndications:Hepat ic encephalopathy Take 1 tablet by mouth 2 times daily. 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 ASA 3 - Patient with moderate systemic disease with functional limitations Sedation Plan: anesthesia Risks and benefits of the procedure explained to the patient. Consent form signed and included in the patient's chart. Jr Mcwilliams MD Advanced Endoscopy Fellow Gastroenterology & Hepatology documented in this encounter Miscellaneous Notes * Op Note - Yoni Tate MD - 01/01/2023 9:41 AM EDT DH Operative Note Patient Name: Amalia Moreira : [id number] MR#: [id number] Case Date: 01/01/2023 Surgeon: Surgeon(s) and Role: * Yoni Tate MD - Primary Procedure(s): COLONOSCOPY,SCREENING (WRVU 3.26) Please see Provation report for details. documented in this encounter Plan of Treatment Scheduled Procedures Name Priority Associated Diagnoses Date/Ti me EGD, UPPER GI ENDOSCOPY (WRV U 2.09) Esophageal varices without bleeding, unspecified esophageal varices type Portal vein thrombosis documented as of this encounter Procedures Procedure Name Priority Date/Time Associated Diagnosis Comments SURGICAL PATHOLOGY REPORT Routine 01/01/2023 9:59 AM EDT SPECIMEN TO PATHOLOGY Routine 01/01/2023 9:59 AM EDT Colonoscopy, Remv Lilly Holly ([id number]) 01/01/2023 9:34 AM EDT 3 year COLONOSCOPY Routine 01/01/2023 9:20 AM EDT documented in this encounter Results * Surgical Pathology Report (01/01/2023 9:59 AM EDT) Final Diagnosis [id number] ? Location: 4T; EA06; A The signing pathologist has (i) examined the relevant preparation(s) for the specimen(s) and (ii) rendered or confirmed the diagnosis(es). . ?Surgical Pathology DIAGNOSIS A - Polyp transverse colon, resection: - ??Tubular adenoma. CR-PX Electronically signed by: ?Diane COLON, Brian Verified: ??01/08/2023 16:23 ??Pathologist Performed at: ??-[facility] Dept. of Pathology, [place] [address] Manager Chemical: Grant Rucker MD, FCAP, ??CLIA Certificate: [id number] SPECIMEN(S) SUBMITTED A - Polyp transverse colon, resection (1) CLINICAL INFORMATION 72-year-old female with history of colon polyps SPECIMEN PROCESSING A - Labeled/Fixativ e: Polyp transverse colon, formalin. Quantity/Size: Single, 0.3 x 0.3 x 0.1 cm. Tissue Description: Soft, banuelos-pink tissue. Sections/Proces sing: Submitted in toto ??in 1 cassette labeled A1. ??nrl 01/08/2023 4:23 PM EDT [facility] GI Biopsy 01/01/2023 9:59 AM EDT 01/01/2023 9:59 AM EDT Yoni Tate MD PATHOLOGY/CYTOLOGY [place] Performing Organization Address [facility] Co de Phone Number [facility] [place] [address] [facility] [place] [address] * Specimen to Pathology (01/01/2023 9:59 AM EDT) AP Specimen 01/01/2023 9:59 AM EDT 01/01/2023 9:59 AM EDT Narrative [facility] - 01/01/2023 9:59 AM EDT Specimen requisition ordered. ??Separate Pathology report to follow Yoni Tate MD PATHOLOGY/CYTOLOGY [place] Performing Organization Address [facility] Co de Phone Number [facility] [place] [address] * COLONOSCOPY (01/01/2023 9:20 AM EDT) COLONOSCOPY [facility] Endoscopy Procedure Date: 01/01/2023 9:20 AM ? Patient Name: Amalia Moreira ? Date of : 1950 ? Age: 72 ? Order #: [id number] ? Instrument Name: [id number] ? Procedure: ? Colonoscopy Indications: ? High risk colon cancer ? surveillance: Personal history of ? colonic polyps Providers: ? Genna Parker ? Liliane Maradiaga, ? Jr Gregory ? Poppy Referring MD: ?Jacinta Black Medicines: ? Propofol per Anesthesia Complications: ? No immediate complications. Procedure: ? Pre-Anesthesia Assessment: ? - Prior to the procedure, a History ? and Physical was performed, and ? patient medications and allergies ? were reviewed. The patient is ? competent. The risks and benefits ? of the procedure and the sedation ? options and risks were discussed ? with the patient. All questions ? were answered and informed consent ? was obtained. Patient ? identification and proposed ? procedure were verified by the ? physician in the pre-procedure ? area. Mental Status Examination: ? alert and oriented. Airway ? Examination: normal oropharyngeal ? airway and neck mobility. ? Respiratory Examination: clear to ? auscultation. CV Examination: ? normal. Prophylactic Antibiotics: ? The patient does not require ? prophylactic antibiotics. Prior ? Anticoagulants: The patient has ? taken no anticoagulant or ? antiplatelet agents. ASA Grade ? Assessment: III - A patient with ? severe systemic disease. After ? reviewing the risks and benefits, ? the patient was deemed in ? satisfactory condition to undergo ? the procedure. The anesthesia plan ? was to use monitored anesthesia ? care (MAC). Immediately prior to ? administration of medications, the ? patient was re-assessed for ? adequacy to receive sedatives. The ? heart rate, respiratory rate, ? oxygen saturations, blood pressure, ? adequacy of pulmonary ventilation, ? and response to care were monitored ? throughout the procedure. The ? physical status of the patient was ? re-assessed after the procedure. ? The procedure, indications, ? benefits, risks and alternatives ? were explained to the patient. ? Specifically discussed were ? potential complications including, ? but not limited to, bleeding, ? perforation, infection, missing a ? cancer, and adverse medication ? reactions. The patient was placed ? in the left lateral decubitus ? position, and a digital rectal exam ? was performed. The Colonoscope was ? inserted in the anus and under ? direct visualization, advanced to ? the terminal ileum. Careful ? inspection was made as the ? colonoscope was withdrawn. The ? patient tolerated the procedure ? well. The quality of the bowel ? preparation was good. ? Findings: ? The terminal ileum appeared normal. ? There was evidence of a prior end-to-side ? ileo-colonic anastomosis in the ascending colon. This ? was patent and was characterized by healthy appearing ? mucosa. The anastomosis was traversed. ? A 3 mm polyp was found in the transverse colon. The ? polyp was sessile. The polyp was removed with a cold ? snare. Resection and retrieval were complete. ? Scattered small-mouthed diverticula were found in the ? entire colon. ? A scar of the anorectal junction was seen on ? retroflexion ? Moderate Sedation: ? Not applicable - See Anesthesia documentation Impression: ?- The examined portion of the ileum ? was normal. ? - Patent end-to-side ileo-colonic ? anastomosis, characterized by ? healthy appearing mucosa. ? - One 3 mm polyp in the transverse ? colon, removed with a cold snare. ? Resected and retrieved. ? - Diverticulosis in the entire ? examined colon. ? - A scar of the anorectal junction ? was seen on retroflexion Recommendation: ?- Discharge patient to home. ? - Resume previous diet. ? - Await pathology results. ? - Repeat colonoscopy in 5 years for ? surveillance based on pathology ? results. ? Procedure Code(s): ? --- Professional --- ? 88271, Colonoscopy, flexible; with ? removal of tumor(s), polyp(s), or ? other lesion(s) by snare technique Diagnosis Code(s): ? --- Professional --- ? K57.30, Diverticulosis of large ? intestine without perforation or ? abscess without bleeding ? D12.3, Benign neoplasm of ? transverse colon (hepatic flexure ? or splenic flexure) ? Z98.0, Intestinal bypass and ? anastomosis status ? Z86.010, Personal history of ? colonic polyps ? --- Technical --- ? K57.30, Diverticulosis of large ? intestine without perforation or ? abscess without bleeding ? D12.3, Benign neoplasm of ? transverse colon (hepatic flexure ? or splenic flexure) ? Z98.0, Intestinal bypass and ? anastomosis status ? Z86.010, Personal history of ? colonic polyps CPT copyright 2020 [employer]. All rights reserved. The codes documented in this report are preliminary and upon lye bath operator review may be revised to meet current compliance requirements. Attending Participation: ? I was present and participated during the entire ? procedure, including non-ventura portions. ? Yoni Tate, 01/01/2023 10:09:31 AM Number of Addenda: 0 Note Initiated On: 01/01/2023 9:20 AM PROVATION 01/01/2023 9:20 AM EDT Jacinta Black APRN GENERAL SURGICAL ORDERABLES PROVATION documented in this encounter Visit Diagnoses Not on filedocumented in this encounter Administered Medications Inactive Administered Medications - up to 3 most recent administrations Medication Order MAR Action Action Date Dose Rate Site lactated ringers infusion 100 mL/hr, Intravenous, CONTINUOUS, Starting on Wed01/01/23 at 0830, Until Wed01/01/23 at 1309, Endoscopy (Day of Procedure) Restarted 01/01/2023 9:30 AM EDT New Bag 01/01/2023 8:19 AM EDT 100 mL/hr 100 mL/hr documented in this encounter Active and Recently Administered Medications Times are shown in EDT. Continuous Medication Order 12/30/2022 12/31/2022 01/01/2023 lactated ringers infusion 100 mL/hr, Intravenous, CONTINUOUS, Starting on Wed01/01/23 at 0830, Until Wed01/01/23 at 1309, Endoscopy (Day of Procedure) 0819 (New Bag - Prov ider: Belen Raymundo RN)0929 (Paused - Provider: Osiris Brown CRNA - Comment: Switch to gravity)0930 (Restarted - Provider: Osiris Brown CRNA)0956 (Anesthesia Volume Adjustment - Provider: Osiris Brown CRNA) documented in this encounter Care Teams Acute Care Certified Nursing Assistant Relationship Specialty Start Date End Date Jacinta Black APRN [address] [place] [address] PCP - General Family Medicine 09/15/21 documented as of this encounter
--- OUTSIDE RECORDS SUMMARY | 2024-01-11 15:26 | XMS_ITS | Encounter Summary ---
[place] [address] Care Team Providers Care Director Teen Post Name Role Phone Jacinta Black APRN Primary Care Provider [phone] [phone] Encounter Details Date Type Department Care Team (Late st Contact Info) Description 02/20/2023 Telephone Obstetrics [place] [phone] Shannan Johnson, [facility] DR OBSTETRICS [place] [address] Social History Tobacco Use Types Packs/Day Years [...] on filedocumented in this encounter Care Teams Director Teen Post Relationship Specialty Start Date End Date Jacinta Black APRN [address] [place] [address] PCP - General Family Medicine 09/15/21 documented as of this encounter
--- OUTSIDE RECORDS SUMMARY | 2024-01-11 15:26 | XMS_ITS | Encounter Summary ---
[place] [address] Care Team Providers Care Technical Services Consultant Name Role Phone WayneJyotsna damonbrittani Campbell APRN Primary Care Provider [phone] [phone] Encounter Details Date Type Department Care Team (Late st Contact Info) Description 09/30/2022 12:30 PM EDT Office [place] [phone] Neena Valadez MD [facility] [place] [address] Hepatic encephalopathy; PVT (portal vein thrombosis); Epigastric pain Social History Tobacco Use Types Packs/Day Years [...] Sign Reading Time Taken Comments Blood Pressure 150/77 09/30/2022 12:21 PM EDT Pulse 63 09/30/2022 12:21 PM EDT Temperature - - Respiratory Rate - - Oxygen Saturation - - Inhaled Oxygen Concentration - - Weight 79 kg (174 lb 3.2 oz) 09/30/2022 12:21 PM EDT Height 157.5 cm (5' 2) 09/30/2022 12:21 PM EDT Body Mass Index 31.86 09/30/2022 12:21 PM EDT documented in this encounter Progress Notes * Neena Valadez MD - 09/30/2022 12:30 PM EDT Gastroenterology and Hepatology Follow Up Note [...] (primary prophylaxis) -EGD 12/2021 follow up banding ?? Intermittent epigastric pain since 2013 CT abd July 2021, September 2021 no clear cause found Upper EUS 11/2021 no cause of pain found Cystic 3.5cm lesion right posterior abdomen abutting posterior hemidiaphragm. Present since at least 2011 and stable in size over that time. Evaluated by surgical oncology 2019. Left adnexal cystic lesion- felt to be benign, evaluated by chip crusher operator and no intervention indicated Adenomatous colon polyps- last colo 11/2019, also need transanal excision of an adenomatous polyp after that colo EGD 11/2019- small hiatal hernia, schatzki's ring, small varices, normal stomach and duodenum Hysterectomy 1983- one ovary left in [facility] Appendix 2010 Asthma Obesity - BMI 30-34 Interval History: Ms Moreira comes in for follow up of portal htn from portal vein thrombosis. Continues to have episodic abdominal pain episodes- helped by zofran and tramadol but symptoms seemto be more frequent. Was seen in ED 09/16, labs and CT abdomen done and not revealing. Sudden onset epigastrc pain followed by diarrhea sometimes. She has tolerated variceal banding well.. She and her report ongoing memory issues that have been going on for years. She'll forget how a credit cardiac cath tech works, she'll forget how a car wash works, she won't remember a conversationafter 30 minutes. This has improved somewhat with rifaximin. She is using miralax for constipation. She reports hoarseness, phegm in the throat that prevents easy breathing. Current Outpatient Medications Medication Sig Dispense Refill ??? melatonin 5 mg tablet Take by mouth nightly. ??? rifAXIMin (Xifaxan) 550 mg Tablet Take 1 tablet by mouth 2 times daily. 60 tablet 3 ??? polyethylene glycoL (Miralax) 17 gram Powder in Packet Take 17 g by mouth daily. ??? traMADoL (Ultram) 50 mg Tablet Take 1 tablet by mouth every 6 hours as needed for Pain. 10 tablet 0 ??? cholecalciferol, Vitamin D3, 25 mcg (1,000 unit) Capsule Take by mouth. ??? calcium carbonate (CALCIUM 600 ORAL) Take 1,200 Units by mouth. ??? loratadine (Claritin) 10 mg Tablet Take 10 mg by mouth daily. ??? fluticasone propionate (Flonase) 50 mcg/actuation [place], Suspension 1 spray daily. ??? hypromellose (SYSTANE GEL OPHT) Apply to eye. ??? fluticasone propion-salmeteroL (ADVAIR) 250-50 mcg/dose Disk with Device Inhale 1 puff into thelungs every 12 hours. ??? magnesium 250 mg Tablet Take 330 mg by mouth. ??? cetirizine (ZyrTEC) 5 mg Tablet every 24 hours. ??? NAC 600 mg Capsule Take 2 capsules by mouth 2 times daily. ??? atorvastatin (Lipitor) 20 mg Tablet Take 20 mg by mouth nightly. ??? clobetasoL (Temovate) 0.05 % Cream 1 application to affected area ??? cyclobenzaprine (Flexeril) 10 mg Tablet Take 10 mg by mouth nightly as needed. ??? diclofenac (Voltaren) 1 % Gel APPLY A SMALL AMOUNT TO AFFECTED AREA TWICE DAILY NEEDED. USE SPARINGLY ??? hydrOXYzine (Atarax) 25 mg Tablet Take 25 mg by mouth nightly. ??? losartan (Cozaar) 25 mg Tablet Take 25 mg by mouth daily. ??? pantoprazole EC (Protonix) 40 mg Tablet, Delayed Release (E.C.) Take 40 mg by mouth daily. ??? montelukast (Singulair) 10 mg Tablet Take 10 mg by mouth every evening. ??? ondansetron (Zofran) 4 mg Tablet Take 4 mg by mouth every 8 hours as needed. ??? Spiriva with HandiHaler 18 mcg Capsule, w/Inhalation Device ??? torsemide (Demadex) 10 mg Tablet ??? levothyroxine (Synthroid) 88 mcg Tablet Take 88 mcg by mouth daily. DIRECTED ??? hyoscyamine (ANASPAZ;LEVSIN) 0.125 mg Tablet TK 1 T PO Q 8 H PRF FLARE OF ABD PAIN ??? ibuprofen (Advil;Motrin) 400 mg Tablet Take 800 mg by mouth daily. Patient takes 1/2 tab daily ??? ondansetron ODT (Zofran ODT) 4 mg Tablet, Rapid Dissolve Take 1-2 tablets by mouth every 8 hours as needed for Nausea. 30 tablet 1 ??? Mometasone-Formoterol (Dulera) 200-5 mcg/actuation HFA Aerosol Inhaler Inhale 2 puffs into the lungs daily. ??? docusate sodium (Colace) 100 mg Capsule Take 100 mg by mouth 2 times daily. ??? acetaminophen (TYLENOL) 325 mg tablet Take 650 mg by mouth every 4 hours as needed. ??? albuterol (PROVENTIL HFA;VENTOLIN HFA) 90 mcg/Actuation inhaler Inhale 1 puff into the lungs daily. Use with spacer No current facility-administered medications for this visit. Vitals: 09/30/22 1221 BP: 150/77 BP Location ([facility]): Right arm Patient Position: Sitting BP Cuff Sizes: Adult (25-34 cm) Pulse: 63 Weight: 79 kg (174 lb 3.2 oz) Height: 157.5 cm (5' 2) Body mass index is 31.86 kg/m??. Exam: Looks well Assessment and Plan: 71 y.o. female.with intermittent epigastric pain for many [...] Hepatic encephalopathy can be seen with chronic PVT, but not commonly and ammonia was normal. To see if HE is playing some role in memory issues I suggested Xifaxan for potential HE. Lactulose was not a good choice for her given chronic bowel issues. I thinkthere has been some improvement in mental function and suspect she may have low grade HE on top of s ome other memory impairment process. Recommendations: I think we should try to continue the Rifaximin 550 bid for low grade HE EGD for variceal banding for varices secondary to chronic portal vein thrombosis. For intermittent epigastric pain, re try levsin .125mg prn pain. She recalls this helping in past. Ok to continue zofran and tramadol as prescribed by pcp. For phlegm/hoarse voice I suggested she use fluticasone daily. She is taking it prn now. Time spent with patient: 35 min Time spent reviewing records, documentin min Neena Valadez MD Section of Gastroenterology & Hepatology [address] [place] [address] Cc: Jacinta Black APRN documented in this encounter Plan of Treatment Scheduled Procedures Name Priority Associated Diagnoses Date/Ti me EGD, UPPER GI ENDOSCOPY (WRV U 2.09) Esophageal varices without bleeding, unspecified esophageal varices type Portal vein thrombosis documented as of this encounter Visit Diagnoses Diagnosis Hepatic encephalopathy PVT (portal vein thrombosis) Portal vein thrombosis Epigastric pain Abdominal pain, epigastric documented in this encounter Care Teams Technical Services Consultant Relationship Specialty Start Date End Date Jacinta Black APRN [address] [place] [address] PCP - General Family Medicine 09/15/21 documented as of this encounter
--- OUTSIDE RECORDS SUMMARY | 2024-01-11 15:26 | XMS_ITS | Encounter Summary ---
[place] [address] Care Team Providers Care Pharmacy Assistant Name Role Phone Jacinta Black APRN Primary Care Provider [phone] [phone] Reason for Visit * Reason Comments Medication Refill Encounter Details Date Type Department Care Team (Late st Contact Info) Description 02/15/2023 Refill [place] [address] Neena Valadez MD [facility] DR [place] [address] Hepatic encephalopathy Social History Tobacco Use Types [...] encephalopathy documented in this encounter Care Teams Pharmacy Assistant Relationship Specialty Start Date End Date Jacinta Black APRN [address] [place] [address] PCP - General Family Medicine 09/15/21 documented as of this encounter
--- OUTSIDE RECORDS SUMMARY | 2024-01-11 15:26 | XMS_ITS | Encounter Summary ---
[place] [address] Care Team Providers Care Bridge Ironworker Helper Name Role Phone Jacinta Black SENG Primary Care Provider +1 [phone] Encounter Details Date Type Department Care Team (Late st Contact Info) Description 01/01/2023 9:30 AM EDT Anesthesia [place] [address] Chris Villegas MD [facility] [place] [address] Osiris Baron CRNA [facility] [place] [address] Anesthesia Record Procedure Summary Procedure Name Responsible Anesthesiologist Anesthesia Start Time Anesthesia Stop Time COLONOSCOPY, POLYPECTOMY, REMOVAL LESION BY SNARE (WRVU 4.57) (Trunk) Chris Villegas MD 01/01/23 0930 01/01/23 1003 Events Date Time Event Comment 01/01/2023 0930 AN Verify 0930 Start 0934 An Start Data 0937 An Induction 0940 Anesthesia Ready 0959 an stop data 1001 Recovery or ICU Handoff Alana ent care was transferred to the destination unit staff after review of the patient's medical history, current anesthetic/surgical status and plan, according to the Provider Handoff Checklist. 1003 Stop 1651 Meds Name Total Propofol 40 mg Propofol INF 255.27 mg lactated ringers infusion 600 mL * Agents Name O2 Air N2O O2 Auxiliary Flowmeter 1 * Blood No blood administrations on file. Lines, Drains, and Airways Type Details Placement Removal (RETIRED) Peripheral IV Line - Single Lumen 10/05/22; 1100; metacarpal vein (top of hand), right; [id number] catheter system; 22 gauge; kimberley young rn; distraction, tolerated well, appears comfortable 10/05/22 1100 by Ale Young RN (RETIRED) Peripheral IV Line - Single Lumen 01/01/23; 0819; cephalic vein (lateral side of arm), right; [id number] catheter system; US Not Used; 20 gauge; Kimberley Delatorre RN; intradermal injection; 01/01/23; 1056 01/01/23 0819 by Belen Raymundo RN 01/01/23 1056 by Osiris Lloyd RN documented in this encounter Social History [...] OR Notes * Anesthesia Postprocedure Evaluation - Chris Villegas MD - 01/01/2023 4:51 PM EDT Department of Anesthesiology Post-procedure Note Patient: Amalia Moreira Procedure Summary Date: 01/01/23 Room / Location: [facility] ENDO 3 / [facility] ENDOSCOPY Anesthesia Start: 929 Anesthesia Stop: 100 Procedure: COLONOSCOPY, POLYPECTOMY, REMOVAL LESION BY SNARE (WRVU 4.57) (Trunk) Diagnosis: (3 year) Surgeons: Yoni Tate MD Responsible Provider: Chris Villegas MD Anesthesia Type: MAC ASA Status: 3 All Anesthesia Providers: Anesthesiologist: Chris Villegas MD TIRE CARE MANAGER: Osiris Brown CRNA Vitals Value Taken Time BP 119/68 01/01/23 1030 Temp Pulse Resp 18 01/01/23 1030 SpO2 96 % 01/01/23 1035 Pain Level 0 01/01/23 1030 Patient Location: PACU/[facility] Level of Consciousness: Awake and Alert Pain Management: Pain Being Addressed PONV: None Cardiovascular Status: At Baseline Respiratory Status: At Baseline Postoperative Fluid Status: Intravascular EUvolemia Possible Anesthetic Complications: NONE apparent at time of evaluation Final Primary Anesthesia Type: MAC (The anesthetic type performed was the same as planned.) Comments: Chris Villegas MD * Anesthesia Preprocedure Evaluation - Chris Villegas MD - 12/31/2022 4:32 PM EDT Pre-Anesthesia Evaluation for: Amalia Patrick Moreira a 72 y.o. female. Procedure(s): [facility] Patient Active Problem List Diagnosis Date Noted [...] ENDOSCOPY performed by Kenrick Gonzalez MD at [facility] ENDOSCOPY ??? PRO COLONOSCOPY, DIAGNOSTIC 09/22/2011 COLONOSCOPY, DIAGNOSTIC performed by KENRICK GONZALEZ at [facility] ENDOSCOPY ??? PRO COLONOSCOPY, DIAGNOSTIC 12/21/2013 COLONOSCOPY, DIAGNOSTIC performed by Kenrick Gonzalez MD at [facility] ENDOSCOPY ??? PRO COLONOSCOPY, DIAGNOSTIC N/A 11/20/2019 COLONOSCOPY, DIAGNOSTIC performed by Yoni Tate MD at [facility] ENDOSCOPY ??? PRO COLONOSCOPY, REMV LESN, SNARE N/A 11/20/2019 COLONOSCOPY, POLYPECTOMY, REMOVAL LESION BY SNARE (WRVU 4.67) performed by Yoni Tate MD at [facility] ENDOSCOPY ??? PRO ENDOSCOPIC US EXAM, ESOPH N/A 12/02/2021 UPPER EUS- ENDOSCOPIC ULTRASOUND performed by Yoni Tate MD at [facility] ENDOSCOPY ??? PRO EXC RECTAL TUMOR, TRANSANAL APPROACH, NOT INCL MUSCULARIS PROPRIA N/A 01/31/2020 EXCISION RECTAL TUMOR, TRANSANAL APPROACH, PARTIAL THICKNESS (WRVU 8.13) performed by Randi Silveira MD at [facility] OSC ??? PRO UPPER GI ENDOSCOPY, DIAGNOSTIC 11/07/2013 EGD, UPPER GI ENDOSCOPY performed by Rico Castro MD at [facility] ENDOSCOPY ??? PRO UPPER GI ENDOSCOPY, DIAGNOSTIC 12/21/2013 EGD, UPPER GI ENDOSCOPY performed by Kenrick Gonzalez MD at [facility] ENDOSCOPY ??? PRO UPPER GI ENDOSCOPY, DIAGNOSTIC N/A 11/20/2019 EGD, UPPER GI ENDOSCOPY performed by Yoni Tate MD at [facility] ENDOSCOPY ??? PRO UPPER GI ENDOSCOPY, DIAGNOSTIC N/A 10/05/2022 EGD, UPPER GI ENDOSCOPY (WRVU 2.09) performed by Missy Diaz MD at [facility] ENDOSCOPY ??? PRO UPPER GI ENDOSCOPY, LIGAT VARIX N/A 12/02/2021 EGD, W BAND LIGATION OF ESOPHAGEAL/GASTRIC VARICES performed by Yoni Tate MD at [facility] ENDOSCOPY ??? PRO UPPER GI ENDOSCOPY, LIGAT VARIX N/A 12/22/2021 EGD, W BAND LIGATION OF ESOPHAGEAL/GASTRIC VARICES performed by Yoni Tate MD at [facility] ENDOSCOPY ??? UPPER GI ENDOSCOPY, EXAM 09/22/2011 UPPER GI ENDOSCOPY performed by KENRICK GONZALEZ at [facility] ENDOSCOPY Social History Tobacco Use ??? Smoking status: Never ??? Smokeless tobacco: Never ??? Tobacco comments: never vape Substance Use Topics ??? Alcohol use: No Social History Substance and Sexual Activity Drug Use No Allergies Allergen Reactions ??? Percodan [Oxycodone-Aspirin] Other (See Comments) Severe dizziness ??? Dilaudid [Hydromorphone] hallucination ??? House Dust CIS - Allergic Rhinitis ??? Kiwi Other reaction(s): Other (See Comments) ??? Percocet [Oxycodone-Acetaminophen] Other (See Comments) Dizziness ??? Prednisone Other reaction(s): Unknown Medications: MAR and/or home medications have been reviewed. Physical Exam: Preprocedure Vitals Current as of 12/31/22 1632 No BP, pulse, respiration, SpO2, or temperature recorded. Height: Weight: BMI: IBW: Airway Assessment: Mallampati: II TM distance: >3 FB Neck ROM: full Cardiovascular Assessment: Rhythm: regular Rate: normal Pulmonary Assessment: unlabored breathing Dental Assessment: - normal exam Misc Assessment: IV access: Peripheral line Last Filed Perioperative Cognitive Screening None Anesthesia Plan: ASA 3 MAC, with a(n) intravenous induction Amalia Moreira is a 72 y.o. 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 No airway history on EMR Labs were reviewed. Type and Screen: No results found for: ABORH Allergies: -- Percodan [Oxycodone-Aspirin] -- Other (See Comments) -- Severe dizziness -- Dilaudid [Hydromorphone] -- hallucination -- House Dust -- CIS - Allergic Rhinitis -- Kiwi -- Other reaction(s): Other (See Comments) -- Percocet [Oxycodone-Acetaminophen] -- Other (See Comments) -- Dizziness -- Prednisone -- Other reaction(s): Unknown NPO Status: Appropriate Anesthetic Plan: MAC with propofol, GA backup Standard ASA monitoring Adequate IV access Chris Villegas MD PhD #[id number] Region - Other Informed Consent: Anesthetic plan and risks discussed with patient. Plan discussed with TIRE CARE MANAGER. Anesthesia Screening documented in this encounter Plan of Treatment [...] 8:19 AM EDT 100 mL/hr 100 mL/hr propofoL (Diprivan) (10 mg/mL) infusion Intravenous, CONTINUOUS PRN, Starting on Wed01/01/23 at 0937, Until Wed01/01/23 at 1003, Anesthesia Intra-op, Routine Rate/Dose Change 01/01/2023 9:47 AM EDT 150 mcg/kg/min 68.58 mL/hr New Bag 01/01/2023 9:37 AM EDT 200 mcg/kg/min 91.44 mL/ hr propofoL (Diprivan) 10 mg/mL bolus injection (Anesthesia) Intravenous, PRN, Starting on Wed01/01/23 at 0937, Until Wed01/01/23 at 1003, Anesthesia Intra-op Given 01/01/2023 9:37 AM EDT 40 mg documented in this encounter Care Teams Bridge Ironworker Helper Relationship Specialty Start Date End Date Jacinta Black APRN [address] [place] [address] PCP - General Family Medicine 09/15/21 documented as of this encounter
--- OUTSIDE RECORDS SUMMARY | 2024-01-11 15:26 | XMS_ITS | Encounter Summary ---
[place] [address] Care Team Providers Care Elementary School Professional Name Role Phone Jacinta Black APRN Primary Care Provider [phone] [phone] Encounter Details Date Type Department Care Team (Late st Contact Info) Description 08/24/2022 Telephone [place] [address] Nupur Rosales, RN Social History Tobacco Use Types Packs/Day Years [...] encounter Miscellaneous Notes * Telephone Encounter - Nupur Rosales RN - 08/24/2022 12:11 PM EDT Returned call to pt. Having what she describes as 'flare-ups'; going on for years, yesterday she describes as the worst.Episodes happen most days, sometimes more than once, and seem to be occurring more frequently. Doesnot seem to be related to eating. States it starts suddenly with pain under breastbone, burping, nausea, sweats and the urge to move her bowels. Feels like she could vomit, but does not. After this she needs to go rest. Tramadol and ondansetron, seem to help. Has not trialled hyoscyamine recently. Endorses a degree of abdominal pain at baseline. Continues taking rifaximin 550 mg twice daily. We updated what she's taking on her electronic med list. Currently in [place], due back in this area ~ 1st week of September. documented in this encounter Plan of Treatment Scheduled Procedures Name Priority Associated Diagnoses Date/Ti me EGD, UPPER GI ENDOSCOPY (WRV U 2.09) Esophageal varices without bleeding, unspecified esophageal varices type Portal vein thrombosis documented as of this encounter Visit Diagnoses Not on filedocumented in this encounter Care Teams Elementary [employer] Professional Relationship Specialty Start Date End Date Jacinta Black APRN [address] [place] [address] PCP - General Family Medicine 09/15/21 documented as of this encounter
--- OUTSIDE RECORDS SUMMARY | 2024-01-11 15:26 | XMS_ITS | Encounter Summary ---
[place] [address] Care Team Providers Care Fire Prevention Research Engineer Name Role Phone Jacinta Black APRN Primary Care Provider [phone] Encounter Details Date Type Department Care Team (Latest Contact Info) Description 02/17/2023 7:32 AM EDT - 02/17/2023 11:59 PM EDT Hospital Encounter [place] [address] Rico Briseno MD [facility] [address] OBST[place] [address] Simple ovarian cyst Discharge Disposition: Home Social History Tobacco Use [...] mouth daily. fluticasone propionate (Flonase) 50 mcg/actuation [place], Suspension 1 spray daily. hypromellose (SYSTANE GEL [...] into the lungs daily. Use with spacer Xifaxan 550 mg tabletIndications:Hepat ic encephalopathy TAKE ONE TABLET BY MOUTH TWICE A DAY 180 tablet 1 02/16/2023 03/10/2023 documented as of this encounter Plan of Treatment Scheduled Procedures Name Priority Associated Diagnoses Date/Ti me EGD, UPPER GI ENDOSCOPY (WRV U 2.09) Esophageal varices without bleeding, unspecified esophageal varices type Portal vein thrombosis documented as of this encounter Procedures Procedure Name Priority Date/Time Associated Diagnosis Comments US TRANSVAGINAL NON OB Routine 02/17/2023 8:03 AM EDT Simple ovarian cyst documented in this encounter Results * US Transvaginal Non OB (02/17/2023 8:03 AM EDT) Anatomical Region Laterality Modality Ultrasound 02/17/2023 7:42 AM EDT Impressions 02/17/2023 8:39 AM EDT 1. The patient is status post hysterectomy and right oophorectomy. 2. Left ovarian cyst that has increased in size from a maximum diameter of 4.7 cm and a volume of 42.6 cc total maximum diameter of 6 cm and a volume of 69 cc. There is either a small adjacent cyst or a cystic but avascular septation. These findings raise the concern of a slow-growing neoplasm such as cystadenoma. Electronically signed by: Kenrick Foley MD, [facility] ([phone]), at 02/17/2023 8:32 AM Thank you for letting us participate in the care of this patient. If you are a health care provider and have any questions regarding this report, please contact the number above. For patients who have questions, please contact the health childcare director that requested your imaging first. ?Kenrick Foley, Staff Physician Electronically Signed Final Report ?? 02/17/2023 08:39 am Narrative 02/17/2023 8:39 AM EDT Gynecological Report ?(Signed Final 02/17/2023 08:39 am) PATIENT INFO: ID #: ? [id number] ?: ??[birth year] (72 yrs)(F) Name: ? AMALIA Patrick DUNCAN ?Visit Date: 02/17/2023 07:42 am PERFORMED BY: Attending: ?Og COLON, Kenrick Coon Performed By: ? Tati Iyer RDMS Referred By: ?RICO BRISENO Location: ? [place] SERVICE(S) PROVIDED: UTV - Transvaginal - [id number] ?[id number] INDICATIONS: simple ovarian cyst, repeat imaging in 1 year TECHNIQUE/SCAN QUALITY: Technique: ?Transducer ID#:[id number] -------- HISTORY: -------- Age: ?? 72 ------- UTERUS: ------- Uterus: ? S/p Hysterectomy ENDOMETRIUM: RIGHT OVARY: Status: ?? O??phorectomy LEFT OVARY: Status: ?? Visualized Size (cm) ?L: ??6.0 ? W: ?? 5.6 ?H: ??3.9 Vol (ml): ?68.6 Type: ?? Cyst with calcifacation Size (cm) ?L: ??5.7 ? W: ?? 3.4 ?H: ??4.6 Vol (ml): ?46.7 Procedure Note Kenrick Foley MD - 02/17/2023 Gynecological Report (Signed Final 02/17/2023 08:39 am) PATIENT INFO: ID #: [id number] : 50 (72 yrs)(F) Name: AMALIA MOREIRA Visit Date: 02/17/2023 07:42 am PERFORMED BY: Attending: Kenrick Foley MD Performed By: Tati Iyer RDMS Referred By: RICO BRISENO Location: [place] SERVICE(S) PROVIDED: UTV - Transvaginal - [id number] INDICATIONS: simple ovarian cyst, repeat imaging in 1 year TECHNIQUE/SCAN QUALITY: Technique: Transducer ID#:[id number] -------- HISTORY: -------- Age: 72 ------- UTERUS: ------- Uterus: S/p Hysterectomy ENDOMETRIUM: RIGHT OVARY: Status: O??phorectomy LEFT OVARY: Status: Visualized Size (cm) L: 6.0 W: 5.6 H: 3.9 Vol (ml): 68.6 Type: Cyst with calcifacation Size (cm) L: 5.7 W: 3.4 H: 4.6 Vol (ml): 46.7 IMPRESSION 1. The patient is status post hysterectomy and right oophorectomy. 2. Left ovarian cyst that has increased in size from a maximum diameter of 4.7 cm and a volume of 42.6 cc total maximum diameter of 6 cm and a volume of 69 cc. There is either a small adjacent cyst or a cystic but avascular septation. These findings raise the concern of a slow-growing neoplasm such as cystadenoma. Electronically signed by: Kenrick Foley MD, [facility] ([phone]), at 02/17/2023 8:32 AM Thank you for letting us participate in the care of this patient. If you are a health care provider and have any questions regarding this report, please contact the number above. For patients who have questions, please contact the health childcare director that requested your imaging first. Kenrick Foley, Staff Physician Electronically Signed Final Report 02/17/2023 08:39 am Rico Briseno MD IMG US PELVIC ORDERA BLES documented in this encounter Visit Diagnoses Diagnosis Simple ovarian cyst Other and unspecified ovarian cyst documented in this encounter Care Teams Fire Prevention Research Engineer Relationship Specialty Start Date End Date Jacinta Black, SENG [address] [place] [address] PCP - General Family Medicine 09/15/21 documented as of this encounter
--- OUTSIDE RECORDS SUMMARY | 2024-01-11 15:26 | XMS_ITS | Encounter Summary ---
[place] [address] Care Team Providers Care Screw Machine Hand Name Role Phone Shobha Blackyn Shannan SENG Primary Care Provider [phone] [phone] Reason for Visit * Reason Onset Date Comments Medication Refill 11/12/2022 Encounter Details Date Type Department Care Team (Late st Contact Info) Description 11/12/2022 [place] [address] Neena Valadez MD [facility] [place] [address] Hepatic encephalopathy Social History Tobacco Use Types [...] encephalopathy documented in this encounter Care Teams Screw Machine Hand Relationship Specialty Start Date End Date Jacinta Black APRN [address] [place] [address] PCP - General Family Medicine 09/15/21 documented as of this encounter
--- OUTSIDE RECORDS SUMMARY | 2024-01-11 15:26 | XMS_ITS | Encounter Summary ---
[place] [address] Care Team Providers Care Licensed Practical Nurse Instructor Name Role Phone Wayne Jacintabrittani Campbell APRN Primary Care Provider [phone] [phone] Encounter Details Date Type Department Care Team (Late st Contact Info) Description 02/20/2023 Telephone Obstetrics [place] [phone] Shannan Johnson [facility] OBSTETRICS [place] [address] Social History Tobacco Use Types Packs/Day Years [...] encounter Miscellaneous Notes * Telephone Encounter - Shannan Johnson DO - 02/20/2023 10:32 AM EDT Called pt to discuss stable Ca 125. Discussed case w glazier helper onc (Dr Kay Rosales) re: pt case who agreed w/ plan of observation and low likelihood of cancer. I discussed w/ pt - at what point would she want surgical mgmt? Symptomatic, for ex? She states she would desire surgery if mass was growing at a concerning rate. We will keep formerly established plan of surveillance for now and discuss spacing out US/tumor markers after next visit. Shannan Johnson DO 02/20/2023 10:34 AM documented in this encounter Plan of Treatment Scheduled Procedures Name Priority Associated Diagnoses Date/Ti me EGD, UPPER GI ENDOSCOPY (WRV U 2.09) Esophageal varices without bleeding, unspecified esophageal varices type Portal vein thrombosis documented as of this encounter Visit Diagnoses Not on filedocumented in this encounter Care Teams Licensed Practical Nurse Instructor Relationship Specialty Start Date End Date Jacinta Black, BOBBIN MARKER [address] [place] [address] PCP - General Family Medicine 09/15/21 documented as of this encounter
--- OUTSIDE RECORDS SUMMARY | 2024-01-11 15:26 | XMS_ITS | Encounter Summary ---
Author Organization [facility] Address [address] [place] [address] Care Team Providers Care Paleology Professor Name Role Phone Unavailable Primary Care Provider Unavailabl e Encounter Details Date Type Department Care Team (Late st Contact Info) Description 03/16/2001 Results Only [facility] [address] [place] [address] David Pickard MD [address] [place] [address] [address] [place] [phone] Social History Tobacco Use Types Packs/Day Years Used Date Smoking Tobacco: Never Assessed Sex and Gender Information Value Date Recorded Sex Assigned at Not on file Gender Identity Female 09/26/2021 10:51 EDT Sexual Orientation Not on file documented as of this encounter Plan of Treatment Upcoming Encounters Date Type Department Care Team (Late st Contact Info) Description 02/16/2024 13:50 EDT Appointment [facility] Mammography [address] [place] [id number] documented as of this encounter Procedures Procedure Name Priority Date/Time Associated Diagnosis Comments CYTOPATHOLOGY Routine 03/16/2001 0:00 EST documented in this encounter Results * CYTOPATHOLOGY (03/16/2001 0:00 EST) Pathology Report: CYTOPATHOLOGY REPORT Reports generated via electronic interface contain original data; however they are lacking the format of the original report. Caution should be taken when reading/interpreti ng unformatted reports. Name: ? NORTH, AMALIA ? Accession #: ? [id number] : ? 1950 (Age: 50) ??F ?Collect Date: ? 03/16/2001 Location: ? [facility] ? Receive Date: ? 03/17/2001 Provider: ?DAVID PICKARD MD Copy to: ? Specimen/Source: ?ThinPrep Pap Test, Cervix/Endocervix Last Menstrual Period: ? 1984 Treatment History: ? Hysterectomy ? SPECIMEN ADEQUACY ? Satisfactory for evaluation. GENERAL CATEGORIZATION ? Within Normal Limits ? Document reviewed and electronically signed by: ? VARGAS Nolen(ASCP) ? Report Date: ??03/23/2001 15:04 End of Report ELYSE MARQUEZ 03/16/2001 03/17/2001 David Pickard MD PATHOLOGY ORDERABLES ELYSE MARQUEZ [address] [place] [address] documented in this encounter Visit Diagnoses Not on filedocumented in this encounter
--- OUTSIDE RECORDS SUMMARY | 2024-01-11 15:26 | XMS_ITS | Encounter Summary ---
[place] [address] Care Team Providers Care Final Inspector And Tester Name Role Phone WayneJyotsna damonbrittani Campbell APRN Primary Care Provider [phone] [phone] Encounter Details Date Type Department Care Team (Late st Contact Info) Description 01/27/2022 3:00 PM EDT Office Visit [place] [id number] Neena Valadez MD [facility] [place] [address] PVT (portal vein thrombosis); Esophageal varices without bleeding, unspecified esophageal varices type; Epigastric pain Social History Tobacco Use Types [...] Sign Reading Time Taken Comments Blood Pressure 124/60 01/27/2022 2:48 PM EDT Pulse 71 01/27/2022 2:48 PM EDT Temperature - - Respiratory Rate - - Oxygen Saturation - - Inhaled Oxygen Concentration - - Weight 74.4 kg (164 lb 1.6 oz) 01/27/2022 2:48 P M EDT Height 157.5 cm (5' 2) 01/27/2022 2:48 PM EDT Body Mass Index 30.01 01/27/2022 2:48 PM EDT documented in this encounter Progress Notes * Neena Valadez MD - 01/27/2022 3:00 PM EDT Gastroenterology and Hepatology Follow Up [...] 2021, September 2021 no clear cause found Cystic 3.5cm lesion right posterior abdomen abutting posterior hemidiaphragm. Present since at least 2011 and stable in size over that time. Evaluated by surgical oncology 2019. Left adnexal cystic lesion- felt to be benign, evaluated by bushwalking guide and no intervention indicated Adenomatous colon polyps- [...] of portal htn from portal vein thrombosis. For unknown reasons abdominal pain episodes have not recurred. She has tolerated variceal banding well, she was under the impression this was helping abd pain issues. She and her report ongoing memory issues that have been going on for years. She'll forget how a credit cardiology physician works, she'll forget how a car wash works, she won't remember a conversationafter 30 minutes. She is using miralax for constipation. Current Outpatient Medications Medication Sig Dispense Refill ??? polyethylene glycoL (Miralax) 17 gram Powder [...] daily. ??? fluticasone propionate (Flonase) 50 mcg/actuation [place], Suspension 1 spray daily. ??? hypromellose (SYSTANE [...] current facility-administered medications for this visit. Vitals: 01/27/22 1448 BP: 124/60 BP Location ([facility]): Left arm Patient Position: Sitting BP Cuff Sizes: Adult (25-34 cm) Pulse: 71 Weight: 74.4 kg (164 lb 1.6 oz) Height: 157.5 cm (5' 2) Body mass index is 30.01 kg/m??. Exam: Looks well Assessment and Plan: 71 y.o. female.with intermittent epigastric pain for many years. She reports this since 2019, but review of the chart shows she describes the same pain since 2014. This has been evaluated by multipleCT scans, endoscopy and EUS without a clear cause. I suspect this may be non ulcer dyspepsia and now better without intervention. Vega should continue pantoprazole for possible reflux. She has had variceal banding to prevent bleeding from varices secondary to portal vein thrombus. She is going to [place] in February. I think it is reasonable to post darin endoscopy to the spring for follow up banding. Her memory issues may be early dementia. Hepatic encephalopathy can be seen with chronic PVT, but not commonly and ammonia was normal. To see if HE is playing some role in memory issues I am suggesting a one month trial of Xifaxan for potential HE. Lactulose is not a good choice for her given chronic bowel issues. Follow up in one month tele visit to assess if Xifaxan having any effect. Time spent with patient: 30 min Time spent reviewing records, documentin min Neena Valadez MD Section of Gastroenterology & Hepatology [address] [place] [id number] Cc: Jacinta Black APRN documented in this encounter Plan of Treatment Scheduled Procedures Name Priority Associated Diagnoses Date/Ti me EGD, UPPER GI ENDOSCOPY (WRV U 2.09) Esophageal varices without bleeding, unspecified esophageal varices type Portal vein thrombosis documented as of this encounter Visit Diagnoses Diagnosis PVT (portal vein thrombosis) Portal vein thrombosis Esophageal varices without bleeding, unspecified esophageal varices type Epigastric pain Abdominal pain, epigastric documented in this encounter Care Teams Final Inspector And Tester Relationship Specialty Start Date End Date Jacinta Black APRN [address] [place] [address] PCP - General Family Medicine 09/15/21 documented as of this encounter
--- OUTSIDE RECORDS SUMMARY | 2024-01-11 15:26 | XMS_ITS | Encounter Summary ---
[place] [address] Care Team Providers Care Paradichlorobenzene Tender Name Role Phone Shobha Blackyn Shannan SENG Primary Care Provider [phone] [phone] Encounter Details Date Type Department Care Team (Late st Contact Info) Description 10/01/2022 Telephone [place] [phone] Serjio Hughes Social History Tobacco Use Types Packs/Day Years [...] encounter Miscellaneous Notes * Telephone Encounter - Serjio Hughes - 10/01/2022 11:03 AM EDT Amalia Moreira [id number] Diagnosis/Indication: verices Please review patient chart to confirm if [...] SCHEDULING QUESTIONS (ask all patient these questions) 1. Have you ever had a/an Upper Endoscopy before? Yes: Date 12/22/21 If yes, did you have any problems with the procedure (such as waking up during the procedure, pain or difficulties afterwards, etc.)? No What type of sedation was used: General Anesthesia 2. Do you take any blood thinners or have you been diagnosed with a bleeding disorder that increases your risk of bleeding with procedures? No 3. Do you have a Pacemaker or Defibrillator device? If yes, send pool message to Cardiology with patient information and date or procedure. No 4. Are you a diabetic? If yes, call PCP/managing provider to discuss use of prep and any questions or concerns related to. No 5. Do you take any iron supplements or vitamins that contain iron? No 6. Do you have a preference regarding the gender of your provider? No ANESTHESIA QUESTIONS (YES to any question, please book with Anesthesia support) 7. Have you ever been diagnosed with Pulmonary Hypertension and/or Congential Heart Disease? No 8. Have you been diagnosed with A-Fib (atrial fibrillation) that is NOT being well controled with medications? No 9. Have you ever had an allergic or adverse reaction to Fentanyl or Versed? No 10. Have you had a problem with sedation or anesthesia? (Waking up during procedure, extreme confusion after, etc.) No 11. Do you have a diagnosis of Obstructive Sleep Apnea that requires the use of a c-pap machine? No 12. Do you use an oxygen tank at home? No 13. Do you use a rescue inhaler more than twice per day? (COPD, severe asthma) No 14. Do you experience breathing problems when you lay flat for a period of time? No 15. Do you take prescription narcotic pain medications, including suboxone or methodone? Yes SCHEDULING CONFIRMATIONS: Please note any and all parts of your conversation with the patient here. 16. We offer all new patients an opportunity to have an appointment with one of our associate care providers to learn more about your upcoming procedure, ask questions and get answers. These appointments are offered via telehealth. Would you be interested in scheduling this appointment? (Only ask if NEW referral patient; skip this question if GI provider ordered the procedure.) No 17. Is there any other information or concerns you would like to us to share with your care team inrelation to your upcoming scheduled procedure? No 18. You must have a responsible alliance party who will drive you to your procedure, stay on campus for the entire duration of your procedure, and drive you home from your procedure. Who will likely be your refuse driver for the procedure? *Please Verify the height and weight, and adjust if height and/or weight have changed* Estimated body mass index is 31.86 kg/m?? as calculated from the following: Height as of 09/30/22: 157.5 cm (5' 2). Weight as of 09/30/22: 79 kg (174 lb 3.2 oz). Age:71 y.o. documented in this encounter Plan of Treatment Scheduled Procedures Name Priority Associated Diagnoses Date/Ti me EGD, UPPER GI ENDOSCOPY (WRV U 2.09) Esophageal varices without bleeding, unspecified esophageal varices type Portal vein thrombosis documented as of this encounter Visit Diagnoses Not on filedocumented in this encounter Care Teams Paradichlorobenzene Tender Relationship Specialty Start Date End Date Jacinta Black APRN [address] [place] [address] PCP - General Family Medicine 09/15/21 documented as of this encounter
--- OUTSIDE RECORDS SUMMARY | 2024-01-11 15:26 | XMS_ITS | Encounter Summary ---
[place] [address] Care Team Providers Care Cargo Checker Name Role Phone Shobha Blackyn Shannan SENG Primary Care Provider [phone] [phone] Encounter Details Date Type Department Care Team (Late st Contact Info) Description 01/01/2023 9:30 AM EDT - 01/01/2023 10:30 AM EDT [place] [address] Yoni Tate MD [facility] [place] [address] COLONOSCOPY, POLYPECTOMY, REMOVAL LESION BY SNARE (WRVU 4.57) Social History Tobacco Use Types Packs/Day Years [...] 18 01/01/2023 10:30 AM EDT Oxygen Saturation 97% 01/01/2023 10:30 AM EDT Inhaled Oxygen Concentration - - [...] mouth daily. fluticasone propionate (Flonase) 50 mcg/actuation [place], Suspension 1 spray daily. hypromellose (SYSTANE GEL [...] Operative Note Patient Name: Amalia Moreira : [id number] MR#: [id number] Case Date: 01/01/2023 Surgeon: Surgeon(s) and Role: * Yoni Tate MD - Primary Procedure(s): COLONOSCOPY,SCREENING (WRVU 3.26) Please see Provation report for details. documented in this encounter Plan of Treatment Scheduled Procedures Name Priority Associated Diagnoses Date/Ti pa EGD, UPPER GI ENDOSCOPY (WRV U 2.09) Esophageal varices without bleeding, unspecified esophageal varices type Portal vein thrombosis documented as of this encounter Procedures Procedure Name Priority Date/Time Associated Diagnosis Comments SURGICAL PATHOLOGY REPORT Routine 01/01/2023 9:59 AM EDT SPECIMEN TO PATHOLOGY Routine 01/01/2023 9:59 AM EDT Colonoscopy, Lilly Maria ([id number]) 01/01/2023 9:34 AM EDT 3 year COLONOSCOPY Routine 01/01/2023 9:20 AM EDT documented in this encounter Results * Surgical Pathology Report (01/01/2023 9:59 AM EDT) Final Diagnosis [id number] ? Location: 4T; EA06; A The signing pathologist has (i) examined the relevant preparation(s) for the specimen(s) and (ii) rendered or confirmed the diagnosis(es). . ?Surgical Pathology DIAGNOSIS A - Polyp transverse colon, resection: - ??Tubular adenoma. CR-PX Electronically signed by: ?Dinae COLON, Brian Verified: ??01/08/2023 16:23 ??Pathologist Performed at: ??[facility] [place], [place] [address] Ultrasonic Solderer: Grant Rucker MD, FCAP, ??CLIA Certificate: [id number] SPECIMEN(S) SUBMITTED A - Polyp transverse colon, resection (1) CLINICAL INFORMATION 72-year-old female with history of colon polyps SPECIMEN PROCESSING A - Labeled/Fixativ e: Polyp transverse colon, formalin. Quantity/Size: Single, 0.3 x 0.3 x 0.1 cm. Tissue Description: Soft, banuelos-pink tissue. Sections/Proces sing: Submitted in toto ??in 1 cassette labeled A1. ??nrl 01/08/2023 4:23 PM EDT [facility] GI Biopsy 01/01/2023 9:59 AM EDT 01/01/2023 9:59 AM EDT Yoni Tate MD PATHOLOGY/CYTOLOGY [place] Performing Organization Address City/[facility]/ZIP [place] [address] [facility] [place] [address] * Specimen to Pathology (01/01/2023 9:59 AM EDT) AP Specimen 01/01/2023 9:59 AM EDT 01/01/2023 9:59 AM EDT Narrative [facility] - 01/01/2023 9:59 AM EDT Specimen requisition ordered. ??Separate Pathology report to follow Yoni Tate MD PATHOLOGY/CYTOLOGY [place] Performing Organization Address City/[facility] [place] [address] * COLONOSCOPY (01/01/2023 9:20 AM EDT) COLONOSCOPY [facility] Endoscopy Procedure Date: 01/01/2023 9:20 AM ? Patient Name: Amalia Moreira ? Date of : 1950 ? Age: 72 ? Order #: [id number] ? Instrument Name: [id number] ? Procedure: ? Colonoscopy Indications: ? High [...] Procedure Code(s): ? --- Professional --- ? 19403, Colonoscopy, flexible; with ? removal of tumor(s), [...] of ? colonic polyps CPT copyright 2020 [employer]. All rights reserved. The codes documented in this report are preliminary and upon computer language coder review may be revised to meet current [...] CRNA) documented in this encounter Care Teams Cargo Checker Relationship Specialty Start Date End Date Jacinta Black APRN [address] [place] [address] PCP - General Family Medicine 09/15/21 documented as of this encounter
--- OUTSIDE RECORDS SUMMARY | 2024-01-11 15:26 | XMS_ITS | Encounter Summary ---
[place] [address] Care Team Providers Care Nursing Home Administrator Name Role Phone Jacinta Black APRN Primary Care Provider [phone] [phone] Reason for Visit * Reason Onset Date Comments Prior Authorization 10/07/2022 hyoscyamine SL (Levsin SL) 0.125 mg sublingual tablet Encounter Details Date Type Department Care Team (Late st Contact Info) Description 10/07/2022 Telephone [place] [address] Anisha Baron MA Prior Authorization (hyoscyamine SL (Levsin SL) 0.125 mg sublingual tablet ) Social History Tobacco Use Types Packs/Day [...] encounter Miscellaneous Notes * Telephone Encounter - Amria Leach RN - 10/19/2022 10:18 AM EDT Spoke with patient regarding insurance denial of hyoscyamine. Lawanda is going to try goodRx coupon. Covered alternatives are dicyclomine and glycopyrrolate but both are tier 3. She will let send update if needed. * Telephone Encounter - Niya West CMA - 10/07/2022 1:40 PM EDTSummary: Denial Images from the original note were not included. Submitted Date: Submitted Date: 10/07/2022 PA Outcome: PA Denial [place] [address] DENIED: Levsin/SL 0.125MG sublingual tablets Case/Reference #: [id number] Additional Information from Insurance: Please see reason for denial below. Denial letter in media tab. * Telephone Encounter - Anisha Baron CMA - 10/07/2022 9:27 AM EDT Attached this encounter to CMM form and submitted * Telephone Encounter - Anisha Baron CMA - 10/07/2022 9:22 AM EDTSummary: PA-hyoscyamine SL (Levsin SL) 0.125 mg sublingual tablet PA Submitted Submitted Date: Submitted Date: 10/07/2022 Medication Prior Authorization Patient: Amalia Moreira Patient : 1950 Insurance Company: [employer] Sent via: Cover My Meds [place]: [id number] Physician: Neena Valadez MD Medication Requested: hyoscyamine SL (Levsin SL) 0.125 mg sublingual tablet Frequency/Sig: Take 1 tablet by mouth every 4 hours as needed for Cramping. Disp: 30 tablet Refills: 1 Currently taking: yes If yes, how lon12/27/2019 Diagnosis for this medication: Epigastric pain R10.13 Additional Notes: Gastroenterolgy Note From 09/30/2022 Problem List: Chronic portal vein thrombosis -occurred [...] EUS 11/2021 no cause of pain found ?? Cystic 3.5cm lesion right posterior abdomen abutting posterior hemidiaphragm. ??Present since at least 2011 and stable in size over that time. Evaluated by surgical oncology 2019. Left adnexal cystic lesion- felt to be benign, evaluated by engineering and development director and no intervention indicated Adenomatous colon polyps- last colo 11/2019, also need transanal excision of an adenomatous polyp after that colo EGD 11/2019- small hiatal hernia, schatzki's ring, small varices, normal stomach and duodenum ?? Hysterectomy 1983- one ovary left in [facility] Appendix 2010 Asthma Obesity??- BMI 30-34 Interval History: Ms Moreira comes in for follow up of portal htn from portal vein thrombosis. Continues to have episodic abdominal pain episodes- helped by zofran and tramadol but symptoms seemto be more frequent. Was seen in ED 53, labs and CT abdomen done and not revealing. Sudden onset epigastrc pain followed by diarrhea sometimes. ?? She has tolerated variceal banding well.. ?? She and her report ongoing memory issues that have been going on for years. She'll forget how a credit retail gift card merchandising works, she'll forget how a car wash works, she won't remember a conversationafter 30 minutes. This has improved somewhat with rifaximin. ?? She is using miralax for constipation. ?? She reports hoarseness, phegm in the throat that prevents easy breathing. Interval History: Ms Moreira comes in for follow up of portal htn from portal vein thrombosis. Continues to have episodic abdominal pain episodes- helped by zofran and tramadol but symptoms seemto be more frequent. Was seen in ED 3, labs and CT abdomen done and not revealing. Sudden onset epigastrc pain followed by diarrhea sometimes. ?? She has tolerated variceal banding well.. ?? She and her report ongoing memory issues that have been going on for years. She'll forget how a credit retail gift card merchandising works, she'll forget how a car wash works, she won't remember a conversationafter 30 minutes. This has improved somewhat with rifaximin. ?? She is using miralax for constipation. ?? She reports hoarseness, phegm in the throat that prevents easy breathing. documented in this encounter Plan of Treatment Scheduled Procedures Name Priority Associated Diagnoses Date/Ti me EGD, UPPER GI ENDOSCOPY (WRV U 2.09) Esophageal varices without bleeding, unspecified esophageal varices type Portal vein thrombosis documented as of this encounter Visit Diagnoses Not on filedocumented in this encounter Care Teams Nursing Home Administrator Relationship Specialty Start Date End Date Jacinta Black APRN [address] [place] [address] PCP - General Family Medicine 09/15/21 documented as of this encounter
--- OUTSIDE RECORDS SUMMARY | 2024-01-11 15:26 | XMS_ITS | Encounter Summary ---
[place] [address] Care Team Providers Care Clinic Office Coordinator Name Role Phone Shobha Blackyn Shannan SENG Primary Care Provider [phone] [phone] Encounter Details Date Type Department Care Team (Latest Contact Info) Description 02/25/2022 12:00 PM EDT TH Visit (TeleHealth) [place] [address] Neena Valadez MD [facility] [address] PVT (portal vein thrombosis); Hepatic encephalopathy Social History Tobacco Use Types [...] Progress Notes * Neena Valadez MD - 02/25/2022 12:00 PM EDT Gastroenterology and Hepatology Follow Up [...] lesion- felt to be benign, evaluated by cable ferry operator and no intervention indicated Adenomatous colon [...] abdominal pain episodes- helped by zofran and tramadol. She has tolerated variceal banding well.. She and her report ongoing memory issues that have been going on for years. She'll forget how a credit card setter works, she'll forget how a car wash works, she won't remember a conversationafter 30 minutes. She is using miralax for constipation. We set this visit up to see if Rifaximin made any difference in her memory issues. She and her think it is subtle, but the medication has helped improve her memory. Current Outpatient Medications Medication Sig Dispense Refill ??? rifAXIMin (Xifaxan) 550 mg Tablet Take [...] daily. ??? fluticasone propionate (Flonase) 50 mcg/actuation [place], Suspension 1 spray daily. ??? hypromellose (SYSTANE [...] No current facility-administered medications for this visit. Tele Visit: There were no vitals filed for this visit. There is no height or weight on file to calculate BMI. Exam: Looks well Assessment and Plan: 71 y.o. female.with intermittent epigastric pain for many years. She reports this since 2019, but review of the chart shows she describes the same pain since 2013. This has been evaluated by multipleCT scans, endoscopy and EUS without a clear cause. I suspect this may be non ulcer dyspepsia and now better without intervention. She should continue pantoprazole for possible reflux. She has had variceal banding to prevent bleeding from varices secondary to portal vein thrombus. She is going to [place] in February. I think it is reasonable to post pone endoscopy to the spring for follow up banding. Her memory issues may be early dementia. Hepatic encephalopathy can be seen with chronic PVT, but not commonly and ammonia was normal. To see if HE is playing some role in memory issues I suggested aone month trial of Xifaxan for potential HE. Lactulose was not a good choice for her given chronic bowel issues. I think there has been some improvement in mental function and suspect she may have low grade HE on top of some other memory impairment process. I think we should try to continue the Rifaximin 550 bid. EGD in late August for banding. Time spent with patient: 20 min Time spent reviewing records, documentin min Neena Valadez MD Section of Gastroenterology & Hepatology [address] [place], [place] [id number] Cc: Jacinta Black APRN documented in this encounter Plan of Treatment Scheduled Procedures Name Priority Associated Diagnoses Date/Ti me EGD, UPPER GI ENDOSCOPY (WRV U 2.09) Esophageal varices without bleeding, unspecified esophageal varices type Portal vein thrombosis documented as of this encounter Visit Diagnoses Diagnosis PVT (portal vein thrombosis) Portal vein thrombosis Hepatic encephalopathy documented in this encounter Care Teams Clinic Office Coordinator Relationship Specialty Start Date End Date Jacinta Black APRN [address] [place] [id number] PCP - General Family Medicine 09/15/21 documented as of this encounter
--- OUTSIDE RECORDS SUMMARY | 2024-01-11 15:26 | XMS_ITS | Encounter Summary ---
[place] [address] Care Team Providers Care Commuter Pilot Name Role Phone Jyotsna Blackbrittani Campbell APRN Primary Care Provider [phone] [phone] Reason for Visit * Reason Onset Date Comments Medication Refill 10/19/2022 Encounter Details Date Type Department Care Team (Late st Contact Info) Description 10/19/2022 Refill [place] [address] Neena Valadez MD [facility] [place] [address] Epigastric pain Social History Tobacco Use Types [...] as of this encounter Visit Diagnoses Diagnosis Epigastric pain Abdominal pain, epigastric documented in this encounter Care Teams Commuter Pilot Relationship Specialty Start Date End Date Jacinta Black, SENG [address] [place] [address] PCP - General Family Medicine 09/15/21 documented as of this encounter
--- OUTSIDE RECORDS SUMMARY | 2024-01-11 15:26 | XMS_ITS | Encounter Summary ---
[place] [address] Care Team Providers Care Information Technology Officer Name Role Phone Jacitna Black SENG Primary Care Provider [phone] Encounter Details Date Type Department Care Team (Late st Contact Info) Description 12/22/2021 9:06 AM EDT Anesthesia [place] [id number] Kimmie, Roberto Barber MD [facility] [place] [address] Anesthesia Record Procedure Summary Procedure Name Responsible Anesthesiologist Anesthesia Start Time Anesthesia Stop Time EGD, W BAND LIGATION OF ESOPHAGEAL/GASTRIC VARICES (WRVU 4.4) (Trunk) Sites, Roberto Barber MD 12/22/21 0906 12/22/21 0942 Events Date Time Event Comment 12/22/2021 0906 AN Verify 0906 Start 0922 An Start Data 0925 An Induction 0925 Anesthesia Ready 0942 an stop data 0942 Recovery or ICU Handoff Alana ent care was transferred to the destination unit staff after review of the patient's medical history, current anesthetic/surgical status and plan, according to the Provider Handoff Checklist. 0942 Stop 0954 Meds Name Total Propofol 150 mg Propofol INF 156.24 mg Dexamethasone 4 mg lactated ringers infusion 400 mL * Agents Name O2 Auxiliary Flowmeter 1 * Blood No blood administrations on file. Lines, Drains, and Airways Type Details Placement Removal Incision 01/31/20; 1010; anus ; 01/12/22 (LDA cleanup utility RA#[id number]); 1715 (LDA cleanup utility RA#[id number]) 01/31/20 1010 by Belen Rangel RN 01/12/22 1715 by Yoselin Negron (RETIRED) Peripheral IV Line - Single Lumen 12/22/21; 0906; metacarpal vein (top of hand), right; 22 gauge; J Berger; distraction; 12/22/21; 1031 12/22/21 0906 by Kyara Berger RN 12/22/21 1031 by Skye Flores RN documented in this encounter Social History [...] OR Notes * Anesthesia Postprocedure Evaluation - Roberto Burks MD - 12/22/2021 9:53 AM EDT Department of Anesthesiology Post-procedure Note Patient: Amalia Moreira Procedure Summary Date: 12/22/21 Room / Location: [facility] / [facility] Anesthesia Start: 905 Anesthesia Stop: 941 Procedure: EGD, W BAND LIGATION OF ESOPHAGEAL/GASTRIC VARICES (N/A Trunk) Diagnosis: Esophageal varices without bleeding, unspecified esophageal varices type (follow up esophageal varices in 3-4 weeks) Surgeons: Yoni Tate MD Responsible Provider: Roberto Burks MD Anesthesia Type: MAC ASA Status: 3 All Anesthesia Providers: Anesthesiologist: Roberto Burks MD METAL POURER: Roque Zamora CRNA Vitals Value Taken Time BP 130/73 12/22/21 0950 Temp Pulse Resp 16 12/22/21 0950 SpO2 98 % 12/22/21 0952 Pain Level 0 12/22/21 0950 Vitals shown include unvalidated device data. Patient Location: PACU/SDP Level of Consciousness: Awake and Alert Pain Management: Satisfactory Analgesia PONV: None Cardiovascular Status: At Baseline Respiratory Status: Supplemental O2 (NC or FM) Postoperative Fluid Status: Intravascular EUvolemia Possible Anesthetic Complications: NONE apparent at time of evaluation Final Primary Anesthesia Type: MAC (The anesthetic type performed was the same as planned.) Comments: I have evaluated the patient in the postoperative period. The time of my evaluation may not match the note time. The patient has no major complaints and there are no serious complications evident. * Anesthesia Preprocedure Evaluation - Roberto Burks MD - 12/22/2021 9:05 AM EDT Pre-Anesthesia Evaluation for: Amalia Moreira a 71 y.o. female. Procedure(s): EGD, UPPER GI ENDOSCOPY Patient Active Problem List Diagnosis Date Noted [...] ENDOSCOPY performed by Kenrick Gonzalez MD at [facility] ??? PRO COLONOSCOPY, DIAGNOSTIC 09/22/2011 COLONOSCOPY, DIAGNOSTIC performed by KENRICK GONZALEZ at [facility] ??? PRO COLONOSCOPY, DIAGNOSTIC 12/21/2013 COLONOSCOPY, DIAGNOSTIC performed by Kenrick Gonzalez MD at [facility] ??? PRO COLONOSCOPY, DIAGNOSTIC N/A 11/20/2019 COLONOSCOPY, DIAGNOSTIC performed by Yoni Tate MD at [facility] ??? PRO COLONOSCOPY, REMV LESN, SNARE N/A 11/20/2019 COLONOSCOPY, POLYPECTOMY, REMOVAL LESION BY SNARE (WRVU 4.67) performed by Yoni Tate MD at [facility] ??? PRO ENDOSCOPIC US EXAM, ESOPH N/A 12/02/2021 UPPER EUS- ENDOSCOPIC ULTRASOUND performed by Yoni Tate MD at [facility] ??? PRO EXC RECTAL TUMOR, TRANSANAL APPROACH, NOT INCL MUSCULARIS PROPRIA N/A 01/31/2020 EXCISION RECTAL TUMOR, TRANSANAL APPROACH, PARTIAL THICKNESS (WRVU 8.13) performed by Randi Silveira MD at [facility] ??? PRO UPPER GI ENDOSCOPY, DIAGNOSTIC 11/07/2013 EGD, UPPER GI ENDOSCOPY performed by Rico Castro MD at [facility] ??? PRO UPPER GI ENDOSCOPY, DIAGNOSTIC 12/21/2013 EGD, UPPER GI ENDOSCOPY performed by Kenrick Gonzalez MD at [facility] ??? PRO UPPER GI ENDOSCOPY, DIAGNOSTIC N/A 11/20/2019 EGD, UPPER GI ENDOSCOPY performed by Yoni Tate MD at [facility] ??? PRO UPPER GI ENDOSCOPY, LIGAT VARIX N/A 12/02/2021 EGD, W BAND LIGATION OF ESOPHAGEAL/GASTRIC VARICES performed by Yoni Tate MD at [facility] ??? UPPER GI ENDOSCOPY, EXAM 09/22/2011 UPPER GI ENDOSCOPY performed by KENRICK GONZALEZ at [facility] Social History Tobacco Use ??? Smoking status: Never Smoker ??? Smokeless tobacco: Never Used ??? Tobacco comment: never vape Substance Use Topics ??? Alcohol [...] Physical Exam: Preprocedure Vitals Current as of 12/22/21 09 BP: 128/63 Pulse: 67 Resp: SpO2: 100 Temp: 36.6 ??C (97.9 ??F) Height: 157.5 cm (5' 2) (12/22/21) Weight: 74.4 kg (164 lb) (12/22/21) BMI: 29.99 IBW: 50.1 kg (110 lb 7.8 oz) Last edited 12/22/21857 by ANGELICA Airway Assessment: Mallampati: II TM distance: >3 FB Neck ROM: full Cardiovascular Assessment: Rhythm: regular Pulmonary Assessment: breath sounds clear to auscultation Dental Assessment: Misc Assessment: IV access: Peripheral line Last Filed Perioperative Cognitive Screening None Anesthesia Plan: ASA 3 MAC, with a(n) intravenous induction I have seen and examined the patient. I have reviewed the medical record and pertinent laboratory information. I have noted the major medical issues as outlined in the problem list. She has portal hypertension and getting banding part II. I have reviewed risks from minor to major as outlined in theanesthesia consent form. I have highlighted risks related to airway management and sedation. She is aware that our care model is based on a team and I will be working with either a METAL POURER or resident physician. A resident physician means a physician who is in training to be an anesthesiologist. The patient acknowledged these risks and would like to proceed with the anesthesia plan. Sedation with GA back up. Region - Other Informed Consent: Anesthetic plan and risks discussed with patient. Plan discussed with METAL POURER. Anesthesia Screening documented in this encounter Plan of Treatment Scheduled Procedures Name Priority Associated Diagnoses Date/Ti vt EGD, UPPER GI ENDOSCOPY (WRV U 2.09) Esophageal varices without bleeding, unspecified esophageal varices type Portal vein thrombosis documented as of this encounter Visit Diagnoses Not on filedocumented in this encounter Administered Medications Inactive Administered Medications - up to 3 most recent administrations Medication Order MAR Action Action Date Dose Rate Site dexAMETHasone (Decadron) injection Intravenous, PRN, Starting on Wed12/22/21 at 0939, Until Wed12/22/21 at 0942, Anesthesia Intra-op, Routine Given 12/22/2021 9:39 AM EDT 4 mg lactated ringers infusion 100 mL/hr, Intravenous, CONTINUOUS, Starting on Wed12/22/21 at 0915, Until Wed12/22/21 at 1031, Endoscopy (Day of Procedure) Restarted 12/22/2021 9:25 AM EDT New Bag 12/22/2021 9:06 AM EDT 100 mL/hr 100 mL/hr propofoL (Diprivan) (10 mg/mL) infusion Intravenous, CONTINUOUS PRN, Starting on Wed12/22/21 at 0925, Until Wed12/22/21 at 0942, Anesthesia Intra-op, Routine New Bag 12/22/2021 9:25 AM EDT 150 mcg/kg/min 66.96 mL/hr propofoL (Diprivan) 10 mg/mL bolus injection (Anesthesia) Intravenous, PRN, Starting on Wed12/22/21 at 0925, Until Wed12/22/21 at 0942, Anesthesia Intra-op Given 12/22/2021 9:32 AM EDT 50 mg Given 12/22/2021 9:25 AM EDT 100 mg documented in this encounter Care Teams Information Technology Officer Relationship Specialty Start Date End Date Jacinta Black, REHABILITATOR [address] [place] [address] PCP - General Family Medicine 09/15/21 documented as of this encounter
--- OUTSIDE RECORDS SUMMARY | 2024-01-11 15:26 | XMS_ITS | Encounter Summary ---
[place] [address] Care Team Providers Care Investment Sales Assistant Name Role Phone Jacinta Black APRN Primary Care Provider [phone] Encounter Details Date Type Department Care Team (Latest Contact Info) Description 09/30/2022 Travel Social History Tobacco Use Types Packs/Day [...] on filedocumented in this encounter Care Teams Investment Sales Assistant Relationship Specialty Start Date End Date Jacinta Black APRN [address] [place] [address] PCP - General Family Medicine 09/15/21 documented as of this encounter
--- OUTSIDE RECORDS SUMMARY | 2024-01-11 15:26 | XMS_ITS | Encounter Summary ---
[place] [address] Care Team Providers Care Double Surface Operator Name Role Phone WayneJyotsna damonhryn Shannan SENG Primary Care Provider [phone] Encounter Details Date Type Department Care Team (Late st Contact Info) Description 11/23/2022 [place] [id number] Serjio Hughes Social History Tobacco Use Types [...] * Telephone Encounter - Serjio Hughes - 11/23/2022 8:31 AM EDT Amalia Moreira [id number] Diagnosis/Indication: 3 year Please review patient chart to confirm if [...] ever had a/an Colonoscopy before? Yes: Date 11/20/19 If yes, did you have any problems [...] regarding the gender of your provider? Yes Bebeto ANESTHESIA QUESTIONS (YES to any question, please [...] pain medications, including suboxone or methodone? Yes tramidol SCHEDULING CONFIRMATIONS: Please note any and all [...] your procedure. Who will likely be your helper/driver for the procedure? *Please Verify the height and weight, and adjust if height and/or weight have changed* Estimated body mass index is 30.24 kg/m?? as calculated from the following: Height as of 10/05/22: 158.8 cm (5' 2.5). Weight as of 10/05/22: 76.2 kg (168 lb). Age:72 y.o. documented in this encounter Plan of Treatment Scheduled Procedures Name Priority Associated Diagnoses Date/Ti me EGD, UPPER GI ENDOSCOPY (WRV U 2.09) Esophageal varices without bleeding, unspecified esophageal varices type Portal vein thrombosis documented as of this encounter Visit Diagnoses Not on filedocumented in this encounter Care Teams Double Surface Operator Relationship Specialty Start Date End Date Jacinta Black APRN [address] [place] [address] PCP - General Family Medicine 09/15/21 documented as of this encounter
--- OUTSIDE RECORDS SUMMARY | 2024-01-11 15:26 | XMS_ITS | Encounter Summary ---
Author Organization [facility] Address [address] [place] [address] Care Team Providers Care Director Of Rotc Name Role Phone Unavailable Primary Care Provider Unavailabl e Encounter Details Date Type Department Care Team (Late st Contact Info) Description 03/17/2005 Before PRISM Converted Visit (Maple) [facility] - [facility] conversion [address] [place] [address] Suresh Bermudez MD [address] [phone] Social History Tobacco Use Types Packs/Day Years Used Date Smoking Tobacco: Never Assessed Sex and Gender Information Value Date Recorded Sex Assigned at Not on file Gender Identity Female 09/26/2021 10:51 EDT Sexual Orientation Not on file documented as of this encounter Progress Notes * Suresh Bermudez - 07/16/2009 1909 EST DIVISION OF OPHTHALMOLOGY March 18, 2005 Agusto Velazquez, OD [address] [place] [address] Velazquez, Thank you for asking us to see Amalia Moreira in oculoplastics consultation on March 17, 2005 for droopy eyelids obstructing her vision. In addition to bilateral upper eyelid ptosis and dermatochalasis, she has moderately severely brow ptosis and significant dry eye syndrome. She preferred to hold off on punctal plug placement and try artificial tears at this time. In addition, she is interested in bilateral upper blepharoplasty and ptosis repair as well as possible trans-eyelid lateral brow lift with an endotine. Surgery will be scheduled for the near future if it is approved by her insurance company. It's our pleasure assisting in her care. Please feel free to call if you have any questions. Best regards, Signed by Suresh Bermudez MD 03/23/2005 13:58 Viktor Schneider MD Suresh Bermudez MD - Suresh Bermudez MD P - GLT Job ID: [id number] Document ID: [id number] cc: DILLAN Long OD* documented in this encounter Plan of Treatment Upcoming Encounters Date Type Department Care Team (Late st Contact Info) Description 02/16/2024 13:50 EDT Appointment [address] [address] documented as of this encounter Visit Diagnoses Not on filedocumented in this encounter
--- OUTSIDE RECORDS SUMMARY | 2024-01-11 15:26 | XMS_ITS | Clinical Summary ---
Author Organization On License Of [place] [address] Care Team Providers Care Flat Spring Assembler Name Role Phone Jacinta Black APRN Primary Care Provider [phone] [phone] Allergies Active Allergy Reactions Criticality Noted Date Comments Hydromorphone 12/22/2021 hallucination House Dust CIS - Allergic Rhinitis Kiwi 07/12/2017 Other reaction(s): Other (See Comments) Oxycodone-Acetaminophen Other (See Comments) 03/27/2011 Dizziness Oxycodone-Aspirin Other (See Comments) High 09/22/2011 Severe dizziness Prednisone 01/31/2019 Other reaction(s): Unknown Medications Medication Sig Dispensed Refills Start Date End Date Status albuterol (PROVENTIL HFA;VENTOLIN HFA) 90 mcg/Actuation inhaler Inhale 1 puff into the lungs daily. Use with spacer Active acetaminophen (TYLENOL) 325 mg tablet Take 650 mg by mouth every 4 hours as needed. Active Mometasone-Formotero l (Dulera) 200-5 mcg/actuation HFA Aerosol Inhaler Inhale 2 puffs into the lungs daily. Active docusate sodium (Colace) 100 mg Capsule Take 100 mg by mouth 2 times daily. Active ondansetron ODT (Zofran ODT) 4 mg Tablet, Rapid Dissolve Take 1-2 tablets by mouth every 8 hours as needed for Nausea. 30 tablet 1 11/03/2019 Active ibuprofen (Advil;Motrin) 400 mg Tablet Take 800 mg by mouth daily. Patient takes 1/2 tab daily Active cetirizine (ZyrTEC) 5 mg Tablet every 24 hours. Active NAC 600 mg Capsule Take 2 capsules by mouth 2 times daily. 09/29/2021 Active atorvastatin (Lipitor) 20 mg Tablet Take 20 mg by mouth nightly. 09/22/2021 Active clobetasoL (Temovate) 0.05 % Cream 1 application to affected area Active cyclobenzaprine (Flexeril) 10 mg Tablet Take 10 mg by mouth nightly as needed. 09/23/2021 Active diclofenac (Voltaren) 1 % Gel APPLY A SMALL AMOUNT TO AFFECTED AREA TWICE DAILY NEEDED. USE SPARINGLY 09/29/2021 Active hydrOXYzine (Atarax) 25 mg Tablet Take 25 mg by mouth nightly. 06/26/2021 Active losartan (Cozaar) 25 mg Tablet Take 25 mg by mouth daily. 08/18/2021 Active pantoprazole EC (Protonix) 40 mg Tablet, Delayed Release (E.C.) Take 40 mg by mouth daily. 09/12/2021 Active montelukast (Singulair) 10 mg Tablet Take 10 mg by mouth every evening. 08/18/2021 Active ondansetron (Zofran) 4 mg Tablet Take 4 mg by mouth every 8 hours as needed. 08/18/2021 Active Spiriva with HandiHaler 18 mcg Capsule, w/Inhalation Device 05/19/2021 Activ e torsemide (Demadex) 10 mg Tablet 12/23/2020 Active levothyroxine (Synthroid) 88 mcg Tablet Take 88 mcg by mouth daily. DIRECTED 08/21/2021 Active cholecalciferol, Vitamin D3, 25 mcg (1,000 unit) Capsule Take by mouth. Active calcium carbonate (CALCIUM 600 ORAL) Take 1,200 Units by mouth. Active loratadine (Claritin) 10 mg Tablet Take 10 mg by mouth daily. Active fluticasone propionate (Flonase) 50 mcg/actuation [place], Suspension 1 spray daily. Act asif hypromellose (SYSTANE GEL OPHT) Apply to eye. Act asif fluticasone propion-salmeteroL (ADVAIR) 250-50 mcg/dose Disk with Device Inhale 1 puff into the lungs every 12 hours. Active magnesium 250 mg Tablet Take 330 mg by mouth. Active traMADoL (Ultram) 50 mg Tablet Take 1 tablet by mouth every 6 hours as needed for Pain. 10 tablet 12/02/2021 Active polyethylene glycoL (Miralax) 17 gram Powder in Packet Take 17 g by mouth daily. Active melatonin 5 mg tablet Take by mouth nightly. Active multivitamin combination no.56 Tablet, Chewable Take by mouth. Acti ve hyoscyamine SL (Levsin SL) 0.125 mg sublingual tabletIndications:Ep igastric pain Take 1 tablet by mouth every 4 hours as needed for Cramping. 30 tablet 1 10/19/2022 Active furosemide (Lasix) 20 mg tablet daily. 12/11/2022 Active meclizine (Antivert) 25 mg tablet Three times a day 10/20/2022 Activ e polyethylene glycol-electrolytes (NULYTELY) 420 gram Recon Soln 12/11/2022 Active spironolactone (Aldactone) 25 mg tablet Take 25 mg by mouth daily. 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 Abdominal pain 03/28/2011 Hypothyroid 03/28/2011 Resolved Problems Problem Noted Date Diagnosed Date Resolved Date Elevated alkaline phosphatase level 03/28/2011 04/01/2011 Acute pancreatitis 03/28/2011 1 Nausea 03/28/2011 04/01/2011 Family History Medical History Relation Comments Breast Cancer Sister Relation Status Comments Sister Social History Tobacco Use Types Packs/Day Years Used Date Smoking Tobacco: Never Smokeless Tobacco: Never Tobacco Cessation:Counseling Given: Not Answered Comments:never vape Alcohol Use Standard Drinks/Week Comments No 0 (1 standard drink = 0.6 oz pur e alcohol) Sex and Gender Information Value Date Recorded Sex Assigned at Not on file Gender Identity Not on file Sexual Orientation Not on file Last Filed Vital Signs Vital Sign Reading Time Taken Comments Blood Pressure 136/70 02/17/2023 10:13 AM EDT Pulse 65 02/17/2023 10:13 AM EDT Temperature 36.7 ??C (98 ??F) 02/17/2023 10:13 AM EDT Respiratory Rate 19 02/17/2023 10:13 AM EDT Oxygen Saturation 97% 02/17/2023 10:13 AM EDT Inhaled Oxygen Concentration - - Weight 76.2 kg (168 lb) 10/05/2022 10:33 AM EDT Height 158.8 cm (5' 2.5) 10/05/2022 10:33 AM ED T Body Mass Index 30.24 10/05/2022 10:33 AM EDT Plan of Treatment Scheduled Procedures Name Priority Associated Diagnoses Date/Ti me EGD, UPPER GI ENDOSCOPY (WRV U 2.09) Esophageal varices without bleeding, unspecified esophageal varices type Portal vein thrombosis Health Maintenance Due Date Last Done Comments CT Colonography 1950 FIT DNA 1950 FIT 1950 Sigmoidoscopy 1950 Hepatitis C Screening 1968 Tdap adult 1969 Tetanus vaccine 1969 Breast Cancer Share Decision Needed 1990 Breast Cancer screening 1990 Zoster vaccine (1 of 2) 2000 Advance Directive 2005 Bone Density Scan 10/15/2015 Pneumoccocal Vaccine: 65+ (1 of 1 - PCV) 10/15/2015 Covid-19 Vaccine (5 2022-2 4 season) 2023 10/24/2021, 04/16/2021, 08/16/2020, Additional history exists Influenza (Flu) vaccine (1 o f 1 - Influenza standard series) 01/16/2024 Colonoscopy 01/02/2028 01/01/2023, 12/15, 11/20/2019, Additional history exists Colorectal Cancer Screening 01/02/2028 Sigmoidoscopy (10 year) with FIT yearly 01/01/2033 01/01/2023, 01/01/2023, 11/20/2019, Additional history exists Diabetes Screening (HgbA1C o r Glucose) Discontinued 11/02/2019, 12/06/2013, 04/03/2011, Additional history exists Procedures Procedure Name Priority Date/Time Associated Diagnosis Comments COLONOSCOPY Routine 01/01/2023 9:20 AM EDT BASIC METABOLIC PANEL STAT 11/02/2019 7:55 PM EDT from Last 3 Months or Most Recently Relevant to Health Maintenance Results * COLONOSCOPY (01/01/2023 9:20 AM EDT) COLONOSCOPY [facility] Endoscopy Procedure Date: 01/01/2023 9:20 AM ? Patient Name: Amalia Moreira ? Date of : 1950 ? Age: 72 ? Order #: [id number] ? Instrument Name: [id number] ? Procedure: ? Colonoscopy Indications: ? High risk colon cancer ? surveillance: Personal history of ? colonic polyps Providers: ? Genna Parker ? Ashwini, Liliane Dexter, ? Jr Gregory ? Poppy Referring MD: [...] Procedure Code(s): ? --- Professional --- ? 52902, Colonoscopy, flexible; with ? removal of tumor(s), [...] of ? colonic polyps CPT copyright 2020 [employer]. All rights reserved. The codes documented in this report are preliminary and upon automatic blocker review may be revised to meet current compliance requirements. Attending Participation: ? I was present and participated during the entire ? procedure, including non-ventura portions. ? Yoni Tate, 01/01/2023 10:09:31 AM Number of Addenda: 0 Note Initiated On: 01/01/2023 9:20 AM PROVATION 01/01/2023 9:20 AM EDT Jacinta Black LOCAL AREA NETWORK SYSTEMS ADMINSTRATOR GENERAL SURGICAL ORDERABLES PROVATION * (ABNORMAL) Basic Metabolic Panel (non-fasting) (11/02/2019 7:55 PM EDT) Glucose 76 65 - 199 mg/dL [facility] Comment:Diabetes: >=200 mg/d L plus symptoms Blood Urea Nitrogen 10 8 - 18 mg/dL [facility] Creatinine 0.52(L) 0.70 - 1.20 mg/dL [facility] Sodium 138 135 - 145 mmol/L [facility] Potassium 4.2 3.5 - 5.0 mmol/L [facility] Comment: Please note: ??Patients with WBC >100,000 may have falsely elevated Potassium levels. ??For accurate Potassium quantification in these patients send serum separator tube (gold top) for subsequent determinations. ??Contact the Clinical Chemistry Laboratory if there are any questions. Chloride 102 98 - 107 mmol/L [facility] Carbon Dioxide 21(L) 22 - 31 mmol/L [facility] Anion Gap 15 5 - 15 mmol/L [facility] Calcium 9.3 8.5 - 10.5 mg/dL [facility] Est Glomerular Filtration Rate 97 >=60 mL/min/1. 73 m?? [facility] Comment: The eGFR was calculated using the CKD-EPI equation. As with all creatinine based estimates of kidney function, eGFR values calculated with the CKD-EPI equation are not accurate in patients with acute kidney failure, extremes of body mass or the acutely ill. [email or web address] eGFR 113 >=60 mL/min/1. 73 m?? [facility] Comment: The eGFR was calculated using the CKD-EPI equation. As with all creatinine based estimates of kidney function, eGFR values calculated with the CKD-EPI equation are not accurate in patients with acute kidney failure, extremes of body mass or the acutely ill. [email or web address]kf Blood specimen (specimen) 11/02/2019 7:55 PM EDT 11/02/2019 8:02 PM EDT Narrative Resulting Agency Comment Spec In Lab Cici Guan APRN CHEMISTRY ORDERABLES [facility] [address] [place] [address] from Last 3 Months or Most Recently Relevant to Health Maintenance Advance Directives * Full Code (Latest Code Status on File) Date Activated Date Inactivated Comments 04/03/2011 3:00 PM 11/02/2019 4:39 PM Question Answer Comments Does patient have decision m aking capacity? Yes, Order is based on Patients wishes. * Full Code Date Activated Date Inactivated Comments 03/28/2011 5:23 AM 04/03/2011 3:00 PM Question Answer Comments Order Status: Initial Order Does patient have decision m aking capacity? Yes, Order is based on Patients wishes. Care Teams Flat Spring Assembler Relationship Specialty Start Date End Date Jacinta Black APRN [address] [place] [address] PCP - General Family Medicine 09/15/21
--- OUTSIDE RECORDS SUMMARY | 2024-01-11 15:26 | XMS_ITS | Encounter Summary ---
[place] [address] Care Team Providers Care Braddisher Name Role Phone Jyotsna Blackbrittani Campbell APRN Primary Care Provider [phone] [phone] Reason for Visit * Reason Comments Annual Exam Encounter Details Date Type Department Care Team (Late st Contact Info) Description 02/17/2023 10:20 AM EDT Office Visit Obstetrics [place] [address] Shannan Johnson, [address] OBSTETRICS [place] [address] Adnexal mass (Primary Dx) Social History Tobacco Use Types [...] Index - - documented in this encounter Progress Notes * KyrieShannan zavaleta, DO - 02/17/2023 10:20 AM EDT CORPORATE QUALITY ASSURANCE MANAGER Follow Up Visit Reason for Visit: Amalia is a 72 y.o. postmenopausal female here for surveillance of L adnexal mass. History of Present Illness: L adnexal mass was initially discovered after an episode of abdominal pain prompted a CT - showed RUQ mass as well as L adnexal complex cyst. She was seen by Dr. Motley ([facility]) in November 2019 and it was felt that surgical intervention was not warranted due to low malignant potential. She has been followed w/ Ca 125 levels and serial TVUS forsurveillance. She has been feeling well. No longer having any bloating or early satiety. No abdominal pain. No hematochezia. She recently saw a pelvic floor PT which was very helpful. No postmenopausal bleeding. She was evaluated by Surgical Oncology at [facility] in regards to RUQ mass who reviewed her imaging. PerDr. Mcmahon's note, In review of imaging, the retroperitoneal mass has been present at least [id number] and possible 2010. It remains relatively stable in size and benign on appearance. We discussedoptions of observing vs. obtaining biopsy. Given the lesion adjacent to pleura, higher risk of PTx Pelvic lesion is less clear and I agree that transvaginal ultrasound and possible referral to [facility] may be warranted. The plan was to follow up every 6 months to observe that lesion, which she continues to do. ROS: Otherwise negative except as specified in HPI. Ob/Gynecologic History: LMP: No LMP recorded. Patient has had a hysterectomy. - 2x CORPORATE QUALITY ASSURANCE MANAGER surgeries: hysterectomy, RSO Mammos: up to date and nml per patient Past Medical History Past Medical History: Diagnosis Date Asthma GERD (gastroesophageal reflux disease) Hypothyroid IBS (irritable bowel syndrome) Past Surgical History Past Surgical History: Procedure Laterality Date APPENDECTOMY CHOLECYSTECTOMY HEMICOLECTOMY right HYSTERECTOMY OVARY REMOVAL right PRG UNLISTED DIAGNOSTIC GASTROENTEROLOGY PROCEDURE 12/21/2013 VIDEO CAPSULE ENDOSCOPY performed by Kenrick Gonzalez MD at [facility] ENDOSCOPY PRO COLONOSCOPY, DIAGNOSTIC 09/22/2011 COLONOSCOPY, DIAGNOSTIC performed by KENRICK GONZALEZ at [facility] ENDOSCOPY PRO COLONOSCOPY, DIAGNOSTIC 12/21/2013 COLONOSCOPY, DIAGNOSTIC performed by Kenrick Gonzalez MD at [facility] ENDOSCOPY PRO COLONOSCOPY, DIAGNOSTIC N/A 11/20/2019 COLONOSCOPY, DIAGNOSTIC performed by Yoni Tate MD at [facility] ENDOSCOPY PRO COLONOSCOPY, REMV LESN, SNARE N/A 11/20/2019 COLONOSCOPY, POLYPECTOMY, REMOVAL LESION BY SNARE (WRVU 4.67) performed by Yoni Tate MD at [facility] ENDOSCOPY PRO COLONOSCOPY, REMV LESN, SNARE N/A 01/01/2023 COLONOSCOPY, POLYPECTOMY, REMOVAL LESION BY SNARE (WRVU 4.57) performed by Yoni Tate MD at [facility] ENDOSCOPY PRO ENDOSCOPIC US EXAM, ESOPH N/A 12/02/2021 UPPER EUS- ENDOSCOPIC ULTRASOUND performed by Yoni Tate MD at [facility] ENDOSCOPY PRO EXC RECTAL TUMOR, TRANSANAL APPROACH, NOT INCL MUSCULARIS PROPRIA N/A 01/31/2020 EXCISION RECTAL TUMOR, TRANSANAL APPROACH, PARTIAL THICKNESS (WRVU 8.13) performed by Randi Silveira MD at [facility] OSC PRO UPPER GI ENDOSCOPY, DIAGNOSTIC 11/07/2013 EGD, UPPER GI ENDOSCOPY performed by Rico Castro MD at [facility] ENDOSCOPY PRO UPPER GI ENDOSCOPY, DIAGNOSTIC 12/21/2013 EGD, UPPER GI ENDOSCOPY performed by Kenrick Gonzalez MD at [facility] ENDOSCOPY PRO UPPER GI ENDOSCOPY, DIAGNOSTIC N/A 11/20/2019 EGD, UPPER GI ENDOSCOPY performed by Yoni Tate MD at [facility] ENDOSCOPY PRO UPPER GI ENDOSCOPY, DIAGNOSTIC N/A 10/05/2022 EGD, UPPER GI ENDOSCOPY (WRVU 2.09) performed by Missy Diaz MD at [facility] ENDOSCOPY PRO UPPER GI ENDOSCOPY, LIGAT VARIX N/A 12/02/2021 EGD, W BAND LIGATION OF ESOPHAGEAL/GASTRIC VARICES performed by Yoni Tate MD at [facility] ENDOSCOPY PRO UPPER GI ENDOSCOPY, LIGAT VARIX N/A 12/22/2021 EGD, W BAND LIGATION OF ESOPHAGEAL/GASTRIC VARICES performed by Yoni Tate MD at [facility] ENDOSCOPY UPPER GI ENDOSCOPY, EXAM 09/22/2011 UPPER GI ENDOSCOPY performed by KENRICK GONZALEZ at [facility] ENDOSCOPY Medications Current Outpatient Medications Medication Sig Dispense Refill Xifaxan 550 mg tablet TAKE ONE TABLET BY MOUTH TWICE A DAY 180 tablet 1 furosemide (Lasix) 20 mg tablet daily. meclizine [...] 600 ORAL) Take 1,200 Units by mouth. fluticasone propionate (Flonase) 50 mcg/actuation [place], Suspension 1 spray daily. hypromellose (SYSTANE GEL OPHT) Apply to eye. fluticasone propion-salmeteroL (ADVAIR) 250-50 mcg/dose Disk with Device Inhale 1 puff into the lungs every 12 hours. magnesium 250 mg Tablet Take 330 mg by mouth. cetirizine (ZyrTEC) 5 mg Tablet every 24 hours. clobetasoL (Temovate) 0.05 % Cream 1 application [...] (E.C.) Take 40 mg by mouth daily. ondansetron (Zofran) 4 mg Tablet Take 4 mg by mouth every 8 hours as needed. Spiriva with HandiHaler 18 mcg Capsule, w/Inhalation Device levothyroxine (Synthroid) 88 mcg Tablet Take 88 mcg by mouth daily. DIRECTED ibuprofen (Advil;Motrin) 400 mg Tablet Take 800 mg by mouth daily. Patient takes 1/2 tab daily ondansetron ODT (Zofran ODT) 4 mg Tablet, Rapid Dissolve Take 1-2 tablets by mouth every 8 hours asneeded for Nausea. 30 tablet 1 docusate sodium (Colace) 100 mg Capsule Take 100 mg by mouth 2 times daily. acetaminophen (TYLENOL) 325 mg tablet Take 650 mg by mouth every 4 hours as needed. albuterol (PROVENTIL HFA;VENTOLIN HFA) 90 mcg/Actuation inhaler Inhale 1 puff into the lungs daily.Use with spacer loratadine (Claritin) 10 mg Tablet Take 10 mg by mouth daily. NAC 600 mg Capsule Take 2 capsules by mouth 2 times daily. atorvastatin (Lipitor) 20 mg Tablet Take 20 mg by mouth nightly. montelukast (Singulair) 10 mg Tablet Take 10 mg by mouth every evening. torsemide (Demadex) 10 mg Tablet Mometasone-Formoterol (Dulera) 200-5 mcg/actuation HFA Aerosol Inhaler Inhale 2 puffs into the lungs daily. No current facility-administered medications for this visit. Allergies Allergies Allergen Reactions Percodan [Oxycodone-Aspirin] Other (See Comments) Severe dizziness Dilaudid [Hydromorphone] hallucination House Dust CIS - Allergic Rhinitis Kiwi Other reaction(s): Other (See Comments) Percocet [Oxycodone-Acetaminophen] Other (See Comments) Dizziness Prednisone Other reaction(s): Unknown Physical Exam Vitals: 02/17/23 1013 BP: 136/70 Pulse: 65 Resp: 19 Temp: 36.7 ??C (98 ??F) SpO2: 97% Physical Exam Constitutional: Appearance: Normal appearance. Pulmonary: Effort: Pulmonary effort is normal. Neurological: Mental Status: She is alert and oriented to person, place, and time. Skin: General: Skin is warm and dry. Psychiatric: Mood and Affect: Mood normal. Behavior: Behavior normal. Thought Content: Thought content normal. Labs Ca 125 trend: 11/27/19: 65 09/12/21: 26 02/17/23: 43 TVUS 11/15/2019 1. Complex 5 cm left ovarian cystic lesion with two small daughter cysts and possible small solid mural component. In a postmenopausal patient, these are suspicious for ovarian neoplasm. 2. Post hysterectomy and right oophorectomy 3. Of note, a known soft itssue mass in the RUQ abutting the diaphragm is not assessed on this ultrasound. US Transvaginal Non OB Narrative: Gynecological Report (Signed Final 02/16/2020 01:24 pm) INDICATIONS: 69 yo with diffuse abd pain, simple L ovarian cyst found, here for follow up COMPARISON: Prior CT 11/01/19 ------- UTERUS: ------- Uterus: S/p Hysterectomy Position: Surgically absent RIGHT OVARY: Status: Surgically absent LEFT OVARY: Status: Visualized Size (cm) L: 5.0 W: 5.2 H: 3.2 Vol (ml): 42.6 Morphology: Normal appearance Type: Simple cyst Size (cm) L: 4.7 W: 4.7 H: 2.9 Vol (ml): 33.5 Impression: Patient status post hysterectomy and RIGHT oophorectomy 1. The LEFT ovary has a simple cyst measuring 4.7 x 4.7 x 3.0 cm. There is also a small follicle seen. 2. Free fluid is seen. CT in Care Everywhere 09/2021: Impression 1. Unchanged 5.5 cm left adnexal cystic lesion. 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 3. Colonic diverticulosis. 4. Trace ascites. 5. Unchanged 2.3 cm water density lesion along the inferior margin of the right hemidiaphragm. 6. Degenerative spondylosis. Bilateral L4 pars interarticularis defects. 7. L1 compression deformity with tenderness 20% anterior height loss, new since 2019. TVUS 02/17/2022 IMPRESSION 1. The patient is status post [...] of a slow-growing neoplasm such as cystadenoma. Assessment/Plan: 1. Adnexal mass Amalia is a 72 y.o. postmenopausal female here for surveillance of left adnexal mass first noted on CT scan for abdominal pain in 2019. She did see [facility] onc at that time who counseled about surgical removal vs surveillance and given her extensive history of abdominal surgeries she preferred to trend over time w/ serial TVUS and Ca125. TVUS from this morning showed that while the mass has retained it's overall appearance since last scan in 2019, it did grow in size 1cm. I discussed this w/ the radiologist who favors a slow growing benign malignancy such as cystadenoma. Her Ca125 is stable from prior years. We discussed that while I cannot guarantee this is not a malignancy without surgical mgmt, I do think it is reasonable to continue to observe, given overall clinical picture. I offered her a referralto [facility] oncologist to discuss further however she declined for now. We will repeat TVUS and Ca125 levels in 6mo when she returns from her winter in [place]. I will discuss case w/ [facility] oncologist for second opinion as well. Shannan Johnson DO 02/17/2023 10:25 AM Note to patient: The 21st Century Cures Act makes medical notes like this available to patients in the interest of transparency. However, be advised this is a medical document. It is intended as [id number] communication. It is written in medical language and may contain abbreviations or verbiage that are unfamiliar. documented in this encounter Plan of Treatment Scheduled Procedures Name Priority Associated Diagnoses Date/Ti me EGD, UPPER GI ENDOSCOPY (WRV U 2.09) Esophageal varices without bleeding, unspecified esophageal varices type Portal vein thrombosis documented as of this encounter Visit Diagnoses Diagnosis Adnexal mass- Primary Other specified symptom associated with female genital organs documented in this encounter Care Teams Braddisher Relationship Specialty Start Date End Date Jacinta Black, SENG [address] [place] [address] PCP - General Family Medicine 09/15/21 documented as of this encounter
--- OUTSIDE RECORDS SUMMARY | 2024-01-11 15:26 | XMS_ITS | Encounter Summary ---
Author Organization [facility] Address [address] [place] [address] Care Team Providers Care Cylinder Block Hole Reliner Name Role Phone Unavailable Primary Care Provider Unavailabl e Encounter Details Date Type Department Care Team (Late st Contact Info) Description 07/28/2004 Results Only [facility] - Maple conversion [address] [place] [address] Garret Kinney MD [address] [place] [id number] Social History Tobacco Use Types Packs/Day Years Used Date Smoking Tobacco: Never Assessed Sex and Gender Information Value Date Recorded Sex Assigned at Not on file Gender Identity Female 09/26/2021 10:51 EDT Sexual Orientation Not on file documented as of this encounter Plan of Treatment Upcoming Encounters Date Type Department Care Team (Late st Contact Info) Description 02/16/2024 13:50 EDT Appointment [facility] Mammography [address] [place] [address] documented as of this encounter Procedures Procedure Name Priority Date/Time Associated Diagnosis Comments SURGICAL PATHOLOGY Routine 07/28/2004 0:00 EST documented in this encounter Results * SURGICAL PATHOLOGY (07/28/2004 0:00 EST) Pathology Report: SURGICAL PATHOLOGY REPORT Reports generated via electronic interface contain original data; however they are lacking the format of the original report. Caution should be taken when reading/interpreti ng unformatted reports. Name: ? ROBERT, AMALIA ? Accession #: ? [id number] ? : ? 1950 (Age: 53) ??F ? Collect Date: ? 07/28/2004 ? Location: ? [facility] ? Receive Date: ? 07/28/2004 ? Provider: GARRET KINNEY MD Copy to: [facility] ? Final Pathologic Diagnosis: ? Rectum, biopsy: - ??Fragments of hyperplastic polyp. Document reviewed and electronically signed by: RONY MONROE MD Report ??Date: 07/30/2004 08:22 By the signature above, the attending physician certifies that he/she has personally conducted a gross and/or microscopic examination of the described specimens and rendered or confirmed the above diagnosis. Specimen(s) Received: ? Bx rectum Clinical History: ? Not listed Gross Description: ? Received in Hollande's fixative labelled North and bx rectum are two irregular banuelos-pink soft tissues averaging 0.1 x 0.1 x 0.1 cm. ??Submitted in toto in one cassette. ??(Gaudencio Chou)/tmg ?? End of Report ELYSE MARQUEZ 07/28/2004 07/28/2004 14: 54 EST Garret Kinney MD PATHOLOGY ORDERABLE S ELYSE MARQUEZ [address] [place] [address] documented in this encounter Visit Diagnoses Not on filedocumented in this encounter
--- OUTSIDE RECORDS SUMMARY | 2024-01-11 15:26 | XMS_ITS | Encounter Summary ---
Author Organization [facility] Address [address] [place] [address] Care Team Providers Care Doll Eye Setter Name Role Phone Unavailable Primary Care Provider Unavailabl e Encounter Details Date Type Department Care Team (Latest Contact Info) Description 03/17/2005 13:48 EST Hospital Encounter [facility] [place] [address] [place] [address] Suresh Bermudez MD [address] [place] [phone] Discharge Disposition: Auto Discharge Social History Tobacco [...] Info) Description 02/16/2024 13:[address] [facility] Mammography [address] [place] [address] documented as of this encounter Visit Diagnoses Not on filedocumented in this encounter
--- OUTSIDE RECORDS SUMMARY | 2024-01-11 15:26 | XMS_ITS | Encounter Summary ---
[place] [address] Care Team Providers Care Senior Interior Designer Name Role Phone Jacinta Black APRN Primary Care Provider [phone] Reason for Referral * Surgical (Routine) - Closed Specialty Diagnoses / Procedures Referred By Charan benson Referred To Contact Gastroenterology Diagnoses History of adenomatous polyp of colon Jacinta Black APRN [address] [place] [address] [facility] Endoscopy [address] [place] [address] Referral ID Status Reason Start Date Expiration Date V isits Requested Visits Authorized [id number] Closed Test Only PCP Updated and/or Approved 11/19/2022 11/19/2023 1 1 Encounter Details Date Type Department Care Team (Latest Contact Info) Description 11/19/2022 Transcribe Orders eDH Incoming Referrals [phone] Jacinta Black APRN [address] [place] [address] History of adenomatous polyp of colon Social History Tobacco Use Types Packs/Day Years [...] Type Priority Associated Diagnoses Orde r Schedule REFERRAL TO COLONOSCOPY PROCEDURE Outpatient Referral Routine History of adenomatous polyp of colon Ordered: 11/19/2022 documented as of this encounter Visit Diagnoses Diagnosis History of adenomatous polyp of colon Personal history of colonic polyps documented in this encounter Care Teams Senior Interior Designer Relationship Specialty Start Date End Date Jacinta Black APRN [address] [place] [address] PCP - General Family Medicine 09/15/21 documented as of this encounter
--- OUTSIDE RECORDS SUMMARY | 2024-01-11 15:26 | XMS_ITS | Encounter Summary ---
[place] [address] Care Team Providers Care Maintenance Service Technician Name Role Phone Jacinta Black APRN Primary Care Provider [phone] Encounter Details Date Type Department Care Team (Late st Contact Info) Description 02/17/2023 Telephone Obstetrics [place] [phone] Kyara Kaur MD [facility] [address] OBSTET[place] [address] Social History Tobacco Use Types Packs/Day Years [...] on filedocumented in this encounter Care Teams Maintenance Service Technician Relationship Specialty Start Date End Date Jacinta Black APRN [address] [place] [address] PCP - General Family Medicine 09/15/21 documented as of this encounter
--- OUTSIDE RECORDS SUMMARY | 2024-01-11 15:26 | XMS_ITS | Encounter Summary ---
[place] [address] Care Team Providers Care Template Layout Worker Name Role Phone Wayne Jacinta Campbell APRN Primary Care Provider [phone] Encounter Details Date Type Department Care Team (Latest Contact Info) Description 02/17/2023 9:30 AM EDT Laboratory Appointment Lab [address] [place] [phone] Simple ovarian cyst; Elevated cancer antigen 125 (CA 125) Social History Tobacco Use Types Packs/Day Years [...] Procedure Name Priority Date/Time Associated Diagnosis Comments CANCER ANTIGEN 125 Routine 02/17/2023 11 :08 AM EDT Simple ovarian cyst Elevated cancer antigen 125 (CA 125) documented in this encounter Results * (ABNORMAL) Cancer Antigen 125 (02/17/2023 11:08 AM EDT) CA 125 43.1(H) <=38.1 unit/mL [facility] Comment: CA 125 Reference Interval ??Postmenopausal: 6.2 to 31.5 U/mL. ??Premenopausal: 6.9 to 45.9 U/mL. ??Pre and Postmenopausal subjects combined: 6.4 to 38.1 U/mL. This result was generated using a Karly Katty immunoassay. ??Results obtained from other methods or manufacturers cannot be used interchangeably with this method. Blood 02/17/2023 11:0 8 AM EDT 02/17/2023 11:14 AM EDT Narrative Resulting Agency Comment Spec In Lab Rico Briseno MD CHEMISTRY ORDERABLES [facility] [place] [phone] documented in this encounter Visit Diagnoses Diagnosis Simple ovarian cyst Other and unspecified ovarian cyst Elevated cancer antigen 125 (CA 125) Elevated cancer antigen 125 [CA 125] documented in this encounter Care Teams Template Layout Worker Relationship Specialty Start Date End Date Jacinta Black APRN [address] [place] [address] PCP - General Family Medicine 09/15/21 documented as of this encounter
--- OUTSIDE RECORDS SUMMARY | 2024-01-11 15:27 | XMS_ITS | Encounter Summary ---
[place] [address] Care Team Providers Care Recyclable Materials Sorter Name Role Phone Rico Aburto MD Primary Care Provider [phone] Encounter Details Date Type Department Care Team (Late st Contact Info) Description 02/08/2020 Telephone [place] [phone] Randi Silveira MD [facility] [place] [address] Social History Tobacco Use Types Packs/Day Years [...] encounter Miscellaneous Notes * Telephone Encounter - Randi Silveira MD - 02/08/2020 11:56 AM EDT I spoke with Lawanda on the phone and reviewed her pathology. Only adenoma and negative margins. She is feeling very well. She is wondering if she needs to come in for her follow up appointment. Discussed with her that given the pathology result, I would not do an exam unless she was having symptoms or any concerns. Sutures will dissolve on their own. She can also come in if she would like to review her pathology in person. She does not feel that she needs to come in but will wait a week or so and call my office. Ok to cancel follow up if she is feeling well. As per her colonoscopy, repeat colonoscopy in 3 years to be scheduled with Dr. Tate. Randi Silveira MD FACS [facility] body team member Division of Colon and Rectal Surgery [facility] Pager [phone] documented in this encounter Plan of Treatment Scheduled Procedures Name Priority Associated Diagnoses Date/Ti me EGD, UPPER GI ENDOSCOPY (WRV U 2.09) Esophageal varices without bleeding, unspecified esophageal varices type Portal vein thrombosis documented as of this encounter Visit Diagnoses Not on filedocumented in this encounter Care Teams Recyclable Materials Sorter Relationship Specialty Start Date End Date Rico Aburto MD [address] [place] [address] PCP - General 08/26/11 09/14/21 documented as of this encounter
--- OUTSIDE RECORDS SUMMARY | 2024-01-11 15:27 | XMS_ITS | Encounter Summary ---
Author Organization [facility] [place] [address] Care Team Providers Care Digital Strategist Senior Manager Name Role Phone Jacinta Black APRN Primary Care Provider [phone] Reason for Visit * Auth/Cert Specialty Diagnoses / Procedures Referred By Charan benson Referred To Contact Diagnoses Esophageal varices follow up esophaghageal varices, assess for common bile duct stone Procedures PRO ENDOSCOPIC US EXAM, ESOPH UPPER EUS- ENDOSCOPIC ULTRASOUND Yoni Tate MD [facility] [place] [address] [facility] Referral ID Status Reason Start Date Expiration Date Visits Re quested Visits Authorized [id number] 1 1 Encounter Details Date Type Department Care Team (Late st Contact Info) Description 12/02/2021 9:00 AM EDT - 12/02/2021 10:00 AM EDT [place] [id number] Yoni Tate MD [facility] [place] [address] [place] [address] UPPER EUS- ENDOSCOPIC ULTRASOUND (WRVU 3.47) Social History Tobacco Use Types Packs/Day Years [...] Sign Reading Time Taken Comments Blood Pressure 107/62 12/02/2021 10:00 AM EDT Pulse 75 12/02/2021 8:04 AM EDT Temperature 36.2 ??C (97.2 ??F) 12/02/2021 8:04 AM ED T Respiratory Rate 18 12/02/2021 10:00 AM EDT Oxygen Saturation 97% 12/02/2021 10:00 AM EDT Inhaled Oxygen Concentration - - Weight - - Height - - Body Mass Index - - documented in this encounter Discharge Instructions * Discharge Instructions* Rene Duong RN - 12/02/2021 9:31 AM EDT Upper GI Endoscopy: What to Expect at Home Your Recovery You will be able to go home after your doctor or nurse checks to make sure you are not having any problems. You may have to stay overnight if you had treatment during the test. You may have a sore throat fora day or two after the test. This care sheet gives you a general idea about what to expect after the test. How can you care for yourself at home? Activity Rest when you feel tired. You can do your normal activities when it feels okay to do so. Diet Follow your doctor's directions for eating. Unless your doctor has told you not to, drink plenty of fluids. This helps to replace the fluids that were lost during the prep. Do not drink alcohol. Medicines Your doctor will tell you if and when you can restart your medicines. He or she will also give you instructions about taking any new medicines. If you take blood thinners, such as warfarin (Coumadin), clopidogrel (Plavix), or aspirin, be sure to talk to your doctor. He or she will tell you if and when to start taking those medicines again. Make sure that you understand exactly what your doctor wants you to do. If polyps were removed or a biopsy was done during the test, your doctor may tell you not to take aspirin or other anti-inflammatory medicines for a few days. These include ibuprofen (Advil, Motrin) and naproxen (Aleve). If you have a sore throat the day after the procedure, use an nejk-lmh-fgdcdgv spray to numb your throat. Sucking on throat lozenges and gargling with warm salt water may also help relieve your symptoms. Other instructions For your safety, do not drive or operate machinery until the medicine wears off and you can think clearly. Your doctor may tell you not to drive or operate machinery until the day after your test. Do not sign legal documents or make major decisions until the medicine wears off and you can think clearly. The anesthesia can make it hard for you to fully understand what you are agreeing to. Additional Information for Sedation Patients For patients who received sedation: You may have received medications before and/or during your procedure which effects your judgement and reaction time. Do not drive, operate machinery, drink alcoholic beverages or make important decisions for 24 hours. Be careful on stairs as you may be unsteady on your feet. You may eat a regular diet as tolerated. Do not smoke if you are alone. IV site: Slight redness or tenderness is normal, you can use a warm compress if you would like. If tenderness and/or redness increase or if foul drainage occurs, please contact your Doctor. Please call [phone] before 8pm Mon-Fri with problems, questions or concerns. If you call after 8pm or on weekends, call the Hospital at [phone] and ask to speak to the Nightclub Manager electrical power station technician and the auger operator will contact that person for you. When should you call for help? Call [phone] anytime you think you may need emergency care. For example, call if: You passed out (lost consciousness). You pass maroon or bloody stools. You have trouble breathing. Call your doctor now or seek immediate medical care if: You have pain that does not get better after you take pain medicine. You are sick to your stomach or cannot drink fluids. You have new or worse belly pain. You have blood in your stools. You have a fever. You cannot pass stools or gas. Watch closely for changes in your health, and be sure to contact your doctor if you have any problems. Where can you learn more? myD-H View your After Visit Summary and more online at [email or web address] If you would like to provide feedback about your hospital experience, please call the Office of Patient and Family Relations at . If you have received this After Visit Summary in error, please immediately return it in person to the department, or notify the [facility] Privacy Office by calling toll free at between the hours of 8AM and 5PM to arrange for our retrieval of the documents at no cost to you. Content Version: 12.2 ?? 9029-6565 Medicalis. Care instructions adapted under license by [facility]. If you have questions about a medical condition or this instruction, always ask your healthcare professional. [employer] disclaims any warranty or liability for your use of this information. Endoscopic Ultrasound (Rectal): What to Expect at Home Your Recovery After you have a rectal endoscopic ultrasound--a test to find problems in your lower gastrointestinal tract--you will stay at the hospital or clinic for 1 to 2 hours. This will allow the medicine to wear off. You will be able to go home after your doctor or nurse checks to make sure you are not having any problems. After the test, you may be bloated or have gas pains. You may need to pass gas. If a biopsy was done, you may have streaks of blood in your stool (feces) for a few days. This care sheet gives you a general idea about how long it will take for you to recover. But each person recovers at a different pace. Follow the steps below to feel better as quickly as possible. How can you care for yourself at home? Activity Rest when you feel tired. You can do your normal activities when it feels okay to do so. Diet Follow your doctor's directions for eating. Unless your doctor has told you not to, drink plenty of fluids. This helps to replace the fluids that were lost during the colon prep. Do not drink alcohol. Medicines Your doctor will tell you if and when you can restart your medicines. He or she will also give you instructions about taking any new medicines. If you take blood thinners, such as warfarin (Coumadin), clopidogrel (Plavix), or aspirin, be sure to talk to your doctor. He or she will tell you if and when to start taking those medicines again. Make sure that you understand exactly what your doctor wants you to do. If a biopsy was done during the test, your doctor may tell you not to take aspirin or other anti-inflammatory medicines for a few days. These include ibuprofen (Advil, Motrin) and naproxen (Aleve). Other instructions For your safety, do not drive or operate machinery until the medicine wears off and you can think clearly. Your doctor may tell you not to drive or operate machinery until the day after your test. Do not sign legal documents or make major decisions until the medicine wears off and you can think clearly. The anesthesia can make it hard for you to fully understand what you are agreeing to. Additional Information for Sedation Patients For patients who received sedation: You may have received medications before and/or during your procedure which effects your judgement and reaction time. Do not drive, operate machinery, drink alcoholic beverages or make important decisions for 24 hours. Be careful on stairs as you may be unsteady on your feet. You may eat a regular diet as tolerated. Do not smoke if you are alone. IV site: Slight redness or tenderness is normal, you can use a warm compress if you would like. If tenderness and/or redness increase or if foul drainage occurs, please contact your Doctor. Please call [phone] before 8pm Mon-Fri with problems, questions or concerns. If you call after 8pm or on weekends, call the Hospital at [phone] and ask to speak to the Nightclub Manager electrical power station technician and the auger operator will contact that person for you. When should you call for help? Call [phone] anytime you think you may need emergency care. For example, call if: You passed out (lost consciousness). You pass maroon or bloody stools. You have trouble breathing. Call your doctor now or seek immediate medical care if: You have pain that does not get better after you take pain medicine. You are sick to your stomach or cannot drink fluids. You have new or worse belly pain. You have blood in your stools. You have a fever. You cannot pass stools or gas. Watch closely for changes in your health, and be sure to contact your doctor if you have any problems. Where can you learn more? myD-H View your After Visit Summary and more online at [email or web address] If you would like to provide feedback about your hospital experience, please call the Office of Patient and Family Relations at . If you have received this After Visit Summary in error, please immediately return it in person to the department, or notify the [facility] Privacy Office by calling toll free at between the hours of 8AM and 5PM to arrange for our retrieval of the documents at no cost to you. Content Version: 12.2 ?? 4069-6889 Medicalis. Care instructions adapted under license by [facility]. If you have questions about a medical condition or this instruction, always ask your healthcare professional. [employer] disclaims any warranty or liability for your use of this information. documented in this encounter Medications at Time of Discharge Medication Sig Dispensed Refills Start Date End Date polyethylene glycoL (Miralax) 17 gram Powder in [...] mouth daily. fluticasone propionate (Flonase) 50 mcg/actuation [place], Suspension 1 spray daily. hypromellose (SYSTANE GEL [...] the lungs daily. Use with spacer hyoscyamine (ANASPAZ;LEVSIN) 0.125 mg Tablet TK 1 T PO Q 8 H PRF FLARE OF ABD PAIN 12/27/2019 09/30/2022 documented as of this encounter H&P Notes * Yoni Tate MD - 12/02/2021 8:42 AM EDT Procedure: egd/eus +/- ercp Indication: EV screening, eval for choledocholithiasis History of Present Illness: Amalia Moreira is a 71 y.o. woman with pHTN here for ev screening, plan to band if large, also eval for CBD stone and ERCP if present Patient Active Problem List Diagnosis Code ??? Abdominal pain R10.9 ??? Hypothyroid E03.9 ??? 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 Hallucination, drug-induced F19.951 ??? Abdominal pain, right upper quadrant R10.11 ??? Simple ovarian cyst N83.209 ??? Diffuse abdominal pain R10.84 ??? Liver lesion K76.9 ??? Anal polyp K62.0 Medications: Reviewed in EDH Allergies Allergen Reactions ??? Percodan [Oxycodone-Aspirin] Other (See Comments) Severe dizziness ??? House Dust CIS - Allergic Rhinitis ??? Percocet [Oxycodone-Acetaminophen] Other (See Comments) Dizziness ??? Prednisone Other reaction(s): Unknown Social History/Family History: Reviewed in EDH. No changes Exam: Patient Vitals for the past 24 hrs: Temp Pulse Resp BP SpO2 O2 Device 12/02/21 0804 36.2 ??C (97.2 ??F) 75 18 147/77 99 % RA Axox3, nad Anicteric, MMM CTAB RRR, no m/r/g abd soft nt nd +bs Assessment and Plan: Proceed with EGD: ERCP: EUS: ASA Grade: ASA 3 - Patient with moderate systemic disease with functional limitations Mallampati score:II (soft palate, uvula, fauces visible) Sedation plan: MAC/GETA Risks and benefits of the procedure were discussed with the patient. Consent has been signed. Yoni Tate MD documented in this encounter Plan of Treatment Scheduled Procedures Name Priority Associated Diagnoses Date/Ti me EGD, UPPER GI ENDOSCOPY (WRV U 2.09) Esophageal varices without bleeding, unspecified esophageal varices type Portal vein thrombosis documented as of this encounter Procedures Procedure Name Priority Date/Time Associated Diagnosis Comments Upper Gi Endoscopy, Ligat Varix (40380) 12/02/2021 8:47 AM EDT PVT (portal vein thrombosis) Epigastric pain Esophageal varices without bleeding, unspecified esophageal varices type Endoscopic Us Exam, Esoph ([id number]) 12/02/2021 8:47 AM EDT PVT (portal vein thrombosis) Epigastric pain Esophageal varices without bleeding, unspecified esophageal varices type UPPER EUS-ENDOSCOPIC ULTRASOUND Routine 12/02/2021 7:28 AM EDT documented in this encounter Results * UPPER EUS-ENDOSCOPIC ULTRASOUND (12/02/2021 7:28 AM EDT) UPPER ENDOSCOPIC ULTRASOUND [facility] Endoscopy ___ Procedure Date: 12/02/2021 7:28 AM ? Patient Name: Amalia Moreira ? Date of : 1950 ? Age: 71 ? Order #: [id number] ? Instrument Name: [id number] ,[id number] ? ___ Procedure: ? Upper EUS Indications: ? Suspected choledocholithiasis , ? Cirrhosis rule out esophageal ? varices Providers: ? Sho Parker ? Kaila, NEL, Beakh Flores, ? Elisabeth Herrera, Atlassian Administrator Referring MD: ?Jacinta Black Medicines: ? Propofol per Anesthesia Complications: ? No immediate complications. ___ Procedure: [...] a ? cancer, and adverse medication ? reactions.The Endosonoscope was ? introduced through the mouth, and ? advanced to the second part of ? duodenum. The Endoscope was ? introduced through the mouth, and ? advanced to the second part of ? duodenum. The patient tolerated the ? procedure well. ? Findings: ? ENDOSCOPIC FINDING: : ? Large (> 5 mm) varices were found in the distal ? esophagus. Three bands were successfully placed. ? A mild Schatzki ring was found at the ? gastroesophageal junction. ? Esophagogastric landmarks were identified: the Z-line ? was found at 35 cm and the gastroesophageal junction ? was found at 35 cm from the incisors. ? A 1 cm hiatal hernia was present. ? There is no endoscopic evidence of ulceration, ? varices, gastric antral vascular ectasia or portal ? hypertension gastropathy in the entire examined ? stomach. ? The examined duodenum was normal. ? ENDOSONOGRAPHIC FINDING: : ? There was no sign of significant endosonographic ? abnormality in the pancreatic head, pancreatic body, ? pancreatic tail and main pancreatic duct. The ? pancreatic duct measured up to 2 mm in diameter. ? There was no sign of significant endosonographic ? abnormality in the common bile duct. The maximum ? diameter of the duct was 8 mm. There were extensive ? venous collaterals surrounding the common bile duct. ? Moderate Sedation: ? Not applicable - See Anesthesia documentation Impression: ?- Large (> 5 mm) esophageal ? varices. Banded. ? - Mild Schatzki ring. ? - 1 cm hiatal hernia. ? - Normal examined duodenum. ? - There was no sign of significant ? pathology in the pancreatic head, ? pancreatic body, pancreatic tail ? and main pancreatic duct. ? - There was no sign of significant ? pathology in the common bile duct. ? There were extensive venous ? collaterals surrounding the common ? bile duct. ? - No specimens collected. Recommendation: ?- Discharge patient to home. ? - Resume previous diet. ? - Repeat EGD 3-4 weeks for ? retreatment. ? - Follow up in hepatology ? Procedure Code(s): ? --- Professional --- ? 78101, Esophagogastroduode noscopy, ? flexible, transoral; with band ? ligation of esophageal/gastric ? varices ? 63061, Esophagogastroduode noscopy, ? flexible, transoral; with ? endoscopic ultrasound examination ? limited to the esophagus, stomach ? or duodenum, and adjacent structures Diagnosis Code(s): ? --- Professional --- ? K74.60, Unspecified cirrhosis of ? liver ? K44.9, Diaphragmatic hernia without ? obstruction or gangrene ? K22.2, Esophageal obstruction ? I85.10, Secondary esophageal ? varices without bleeding ? --- Technical --- ? K74.60, Unspecified cirrhosis of ? liver ? K44.9, Diaphragmatic hernia without ? obstruction or gangrene ? K22.2, Esophageal obstruction ? I85.10, Secondary esophageal ? varices without bleeding CPT copyright 2020 [employer]. All rights reserved. The codes documented in this report are preliminary and upon paralegal assistant review may be revised to meet current compliance requirements. Attending Participation: ? I was present and participated during the entire ? procedure, including non-ventura portions. ? Yoni Tate, 12/02/2021 9:41:35 AM Number of Addenda: 0 Note Initiated On: 12/02/2021 7:28 AM PROVATION 12/02/2021 7:28 AM EDT Jacinta Black LIGHT RAIL TRANSIT OPERATOR GENERAL SURGICAL ORDERABLES PROVATION documented in this encounter Visit Diagnoses Diagnosis PVT (portal vein thrombosis) Portal vein thrombosis Epigastric pain Abdominal pain, epigastric Esophageal varices without bleeding, unspecified esophageal varices type documented in this encounter Administered Medications Inactive Administered Medications - up to 3 most recent administrations Medication Order MAR Action Action Date Dose Rate Site fentaNYL (PF) (50 mcg/mL) injection 25 mcg 25 mcg, Intravenous, EVERY 30 MIN PRN, Starting on Wed12/02/21 at 0951, Until Wed12/02/21 at 1238, Pain, If medication ordered subcutaneously, do not administer more than 2 mL as a single injection., Endoscopy (Recovery-Hospital Unit), Routine Given 12/02/2021 11:15 AM EDT 25 mcg Given 12/02/2021 10:33 AM EDT 25 mcg Given 12/02/2021 10:07 AM EDT 25 mcg lactated ringers infusion 100 mL/hr, Intravenous, CONTINUOUS, Starting on Wed12/02/21 at 0815, Until Wed12/02/21 at 1238, Endoscopy (Day of Procedure) New Bag 12/02/2021 8:19 AM EDT 100 mL/hr 100 mL/hr ondansetron (pf) (Zofran) (2 mg/mL) injection 4 mg 4 mg, Intravenous, EVERY 30 MIN PRN, 2 doses, Starting on Wed12/02/21 at 0945, Until Wed12/02/21 at 1238, Nausea, Maximum total dose of 8 mg (including OR administration). If multiple antiemetics ordered, use ondansetron first and if ineffective use prochlorperazine second and if ineffective use promethazine, PACU Recovery Given 12/02/2021 9:52 AM EDT 4 mg documented in this encounter Active and Recently Administered Medications Times are shown in EDT. Continuous Medication Order 11/30/2021 12/01/2021 12/02/2021 lactated ringers infusion (CANCELED) 100 mL/hr, Intravenous, CONTINUOUS, Starting on Wed12/02/21 at 0815, Until Wed12/02/21 at 1238, Endoscopy (Day of Procedure) 0819 (New Bag - Prov ider: Krysta Olson RN) PRN Medication Order 11/30/2021 12/01/2021 12/02/2021 fentaNYL (PF) (50 mcg/mL) injection 25 mcg (CANCELED) 25 mcg, Intravenous, EVERY 30 MIN PRN, Starting on Wed12/02/21 at 0951, Until Wed12/02/21 at 1238, Pain, If medication ordered subcutaneously, do not administer more than 2 mL as a single injection., Endoscopy (Recovery-Hospital Unit), Routine 0951 (Given - Provid er: Rene Duong RN)1007 (Given - Provider: Rene Duong RN - Comment: per doctor)1033 (Given - Provider: Rene Duong RN)1115 (Given - Provider: Rene Duong RN) ondansetron (pf) (Zofran) (2 mg/mL) injection 4 mg (CANCELED) 4 mg, Intravenous, EVERY 30 MIN PRN, 2 doses, Starting on Wed12/02/21 at 0945, Until Wed12/02/21 at 1238, Nausea, Maximum total dose of 8 mg (including OR administration). If multiple antiemetics ordered, use ondansetron first and if ineffective use prochlorperazine second and if ineffective use promethazine, PACU Recovery 0952 (Given - Provid er: Rene Duong RN) documented in this encounter Care Teams Digital Strategist Senior Manager Relationship Specialty Start Date End Date Jacinta Black APRN [address] [place] [address] PCP - General Family Medicine 09/15/21 documented as of this encounter
--- OUTSIDE RECORDS SUMMARY | 2024-01-11 15:27 | XMS_ITS | Encounter Summary ---
[facility] Organization [facility] [place] [address] Care Team Providers Care Commodities Manager Name Role Phone Jacinta Black APRN Primary Care Provider [phone] Reason for Visit * Auth/Cert Specialty Diagnoses / Procedures Referred By Charan benson Referred To Contact Diagnoses Esophageal varices follow up esophaghageal varices, assess for common bile duct stone Procedures PRO ENDOSCOPIC US EXAM, ESOPH UPPER EUS- ENDOSCOPIC ULTRASOUND Yoni Tate MD [facility] [place] [address] [facility] Referral ID Status Reason Start Date Expiration Date Visits Re quested Visits Authorized [id number] 1 1 Encounter Details Date Type Department Care Team (Latest Contact Info) Description 12/02/2021 7:52 AM EDT - 12/02/2021 12:45 PM EDT Hospital En[place] [id number] Yoni Tate MD [facility] [place] [address] Discharge Disposition: Home Social History Tobacco Use [...] Sign Reading Time Taken Comments Blood Pressure 114/71 12/02/2021 12:00 PM EDT Pulse 75 12/02/2021 8:04 AM EDT Temperature 36.2 ??C (97.2 ??F) 12/02/2021 8:04 AM ED T Respiratory Rate 18 12/02/2021 12:00 PM EDT Oxygen Saturation 96% 12/02/2021 12:00 PM EDT Inhaled Oxygen Concentration - - Weight [...] the day after the procedure, use an hrit-yzd-swjtjxt spray to numb your throat. Sucking on [...] occurs, please contact your Doctor. Please call [phone] before 8pm Mon-Fri with problems, questions or concerns. If you call after 8pm or on weekends, call the Hospital at [phone] and ask to speak to the Utility Worker [place] secondary history teacher and the vanstone machine operator will contact that person for you. When should you call for help? Call [phone] anytime you think you may need emergency [...] After Visit Summary and more online at [email or web address] If you would like to provide [...] cost to you. Content Version: 12.2 ?? 9228-4854 [employer]. Care instructions adapted under license by [facility]. If you have questions about a medical condition or this instruction, always ask your healthcare professional. [employer] disclaims any warranty or liability for your [...] occurs, please contact your Doctor. Please call [phone] before 8pm Mon-Fri with problems, questions or concerns. If you call after 8pm or on weekends, call the Hospital at [phone] and ask to speak to the Utility Worker [place] secondary history teacher and the vanstone machine operator will contact that person for you. When should you call for help? Call [phone] anytime you think you may need emergency [...] After Visit Summary and more online at [email or web address] If you would like to provide [...] cost to you. Content Version: 12.2 ?? 9761-1599 [employer]. Care instructions adapted under license by [facility]. If you have questions about a medical condition or this instruction, always ask your healthcare professional. [employer] disclaims any warranty or liability for your [...] mouth daily. fluticasone propionate (Flonase) 50 mcg/actuation [place], Suspension 1 spray daily. hypromellose (SYSTANE GEL [...] Diagnosis Comments Upper Gi Endoscopy, Ligat Varix (58360) 12/02/2021 8:47 AM EDT PVT (portal vein thrombosis) Epigastric pain Esophageal varices without bleeding, unspecified esophageal varices type Endoscopic Us Exam, Esoph (83139) 12/02/2021 8:47 AM EDT PVT (portal vein thrombosis) Epigastric pain Esophageal varices without bleeding, unspecified esophageal varices type UPPER EUS-ENDOSCOPIC ULTRASOUND Routine 12/02/2021 7:28 AM EDT documented in this encounter Results * UPPER EUS-ENDOSCOPIC ULTRASOUND (12/02/2021 7:28 AM EDT) [facility] UPPER ENDOSCOPIC ULTRASOUND [facility] Endoscopy ___ Procedure Date: 12/02/2021 7:28 AM ? Patient Name: Amalia Moreira ? Date of : 1950 ? Age: 71 ? Order #: [id number] ? Instrument Name: [id number] ,[facility]-[id number] ? ___ Procedure: ? Upper EUS Indications: ? Suspected choledocholithiasis , ? Cirrhosis rule out esophageal ? varices Providers: ? Yoni Tate, Sho Matthews ? NEL Bright, Bekah Flores, ? Elisabeth Herrera, Repairer Handtools Referring MD: ?Jacinta Black Medicines: ? Propofol [...] Procedure Code(s): ? --- Professional --- ? 48715, Esophagogastroduode noscopy, ? flexible, transoral; with band ? ligation of esophageal/gastric ? varices ? 95873, Esophagogastroduode noscopy, ? flexible, transoral; with ? [...] ? varices without bleeding CPT copyright 2020 [employer]. All rights reserved. The codes documented in this report are preliminary and upon death surveys coder review may be revised to meet current compliance requirements. Attending Participation: ? I was present and participated during the entire ? procedure, including non-ventura portions. ? Yoni Tate, 12/02/2021 9:41:35 AM Number of Addenda: 0 Note Initiated On: 12/02/2021 7:28 AM PROVATION 12/02/2021 7:28 AM EDT Jacinta Black MOLDING UTILITY WORKER GENERAL SURGICAL ORDERABLES PROVATION documented in this [...] RN) documented in this encounter Care Teams Commodities Manager Relationship Specialty Start Date End Date Jacinta Black, SENG [address] [place] [address] PCP - General Family Medicine 09/15/21 documented as of this encounter
--- OUTSIDE RECORDS SUMMARY | 2024-01-11 15:27 | XMS_ITS | Encounter Summary ---
Author Organization [facility] [place] [address] Care Team Providers Care Rn Diabetes Name Role Phone Rico Aburto MD Primary Care Provider [phone] Encounter Details Date Type Department Care Team (Latest Contact Info) Description 12/05/2019 8:50 AM EDT Ancillary Procedure [place] [phone] Jarred De La Cruz MD [facility] [place] [address] Intra-abdominal and pelvic swelling, mass and lump, unspecified site Social History Tobacco Use Types Packs/Day Years [...] Procedure Name Priority Date/Time Associated Diagnosis Comments REQUEST FOR 2ND READ CT ABDOMEN AND PELVIS Routine 12/05/2019 8:49 AM EDT Intra-abdominal and pelvic swelling, mass and lump, unspecified site documented in this encounter Results * Request For 2nd Read CT Abdomen & Pelvis (12/05/2019 8:49 AM EDT) Anatomical Region Laterality Modality Abdomen, Pelvis SO Impressions 12/05/2019 9:19 AM EDT 1. ??Low-attenuation focus in the posterior RIGHT upper abdomen is increased in size compared to prior studies as stated above. On the prior MRI, it appears to be be a small fluid collection. On today's exam, assessment for enhancement or solid component is slightly limited. There is a broad differential for this potentially cystic focus. It could represent some loculated ascites or peritoneal inclusion cyst. Cystic retroperitoneal lesions may also be considered. An MRI of the abdomen with and without contrast may better help assess for an enhancing wall or enhancing nodules. 2. ??New cystic pelvic focus likely billing customer service representative of a LEFT adnexal cystic lesion. Recommend pelvic ultrasound for further evaluation and referral to gynecology. 3. 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 4. ??Colonic diverticulosis without diverticulitis. 5. ??Small hiatal hernia. 6. ??Stable anterolisthesis of L4 on L5 secondary to bilateral pars interarticularis defects. Thank you for letting us participate in the care of this patient. For questions regarding this report, please contact the number below. ? Electronically signed by: Ra Milian [facility] ([phone]), at 12/05/2019 9:19 AM Narrative 12/05/2019 9:19 AM EDT EXAMINATION: REQUEST FOR 2ND READ CT ABDOMEN AND PELVIS CLINICAL HISTORY: Intra-abdominal and pelvic swelling, mass and lump, unspecified site; provider request; What Modality is the exam? CT Scan; Body Part (please add comments as necessary): abdomen and pelvis; Sending Institution [facility]; Date of exam 20191101; I believe a reinterpretation of this exam may alter care of Patient. Yes TECHNIQUE: CT of the abdomen and pelvis performed at [facility] on 11/01/2019. Axial coronal and sagittal 3 mm thick images of the abdomen and pelvis with IV contrast acquired in the portal venous phase are provided for reinterpretation. No enteric contrast was administered at the time of the exam. COMPARISON: CT abdomen on 11/24/[address] abdomen pelvis on 08/31/2011 FINDINGS: Lower chest: No mass consolidation or effusion present. Partially imaged high attenuation material in the region of the coronary arteries and mitral valves appear Liver: Normal size and attenuation without lesions. Bile ducts: Nondilated. Gallbladder: Post cholecystectomy. No fluid collection within the gallbladder fossa. Pancreas: Normal attenuation without ductal dilatation. Spleen: Normal. Adrenals: Normal. Kidneys: Normal. Urinary Bladder: Normal. Vasculature: The abdominal aorta is nonaneurysmal scattered noncalcified atherosclerosis. The IVC is patent. 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 Lymph Nodes: No enlarged lymph nodes. Bowel: There are scattered diverticula in the descending and sigmoid colon without evidence of diverticulitis. Patient's partial RIGHT hemicolectomy with no evidence of anastomotic stenosis and no mass at the anastomosis. No dilated small or large bowel is present. There is a small hiatal hernia. No abnormal bowel wall thickening is seen. Peritoneum, retroperitoneum, and mesentery: No intraperitoneal free air is present. No intraperitoneal free fluid is present. There is a loculated fluid collection the region of the LEFT adnexa as described below. Additionally, there is a 18 x 35 mm low-attenuation focus in the RIGHT posterior upper abdomen (series 2 image 40) which abuts the posterior hemidiaphragm and has an attenuation of approximately 25 Hounsfield units. It is unclear whether this represents a hypoenhancing solid lesion or a high attenuation fluid collection, although there is a small fluid attenuation focus in the region of this collection on a 03/30/2011 MRI. In retrospect, this was likely present on the 2012 study at which time it measured 9 x 20 mm. Abdominal wall: Normal. Reproductive organs: The patient is post hysterectomy. There is a new 3.6 x 5.2 cm cystic focus in the region of the LEFT vaginal cuff and presumably the LEFT adnexa (series 2 image 118). No other adnexal mass is seen. Osseous structures: No suspicious osseous lesions are present. There is unchanged appearance of the mild, grade 1, anterolisthesis of L4 on L5 secondary to bilateral pars interarticularis defects. Procedure Note Ra Milian MD - 12/05/2019 EXAMINATION: REQUEST FOR 2ND READ CT ABDOMEN AND PELVIS CLINICAL HISTORY: Intra-abdominal and pelvic swelling, mass and lump, unspecified site; provider request; What Modality is the exam? CT Scan;Body Part (please add comments as necessary): abdomen and pelvis; [facility]; Date of exam 20191101; I believe a reinterpretation of this exam may alter care of Patient. Yes TECHNIQUE: CT of the abdomen and pelvis performed at [facility] on 11/01/2019. Axial coronal and sagittal 3 mmthick images of the abdomen and pelvis with IV contrast acquired in the portalvenous phase are provided for reinterpretation. No enteric contrast wasadministered at the time of the exam. COMPARISON: CT abdomen on 11/24/[address] abdomen pelvis on 08/31/2011 FINDINGS: Lower chest: No mass consolidation or effusion present. Partially imagedhigh attenuation material in the region of the coronary arteries and mitralvalves appear Liver: Normal size and attenuation without lesions. Bile ducts: Nondilated. Gallbladder: Post cholecystectomy. No fluid collection within thegallbladder fossa. Pancreas: Normal attenuation without ductal dilatation. Spleen: Normal. Adrenals: Normal. Kidneys: Normal. Urinary Bladder: Normal. Vasculature: The abdominal aorta is nonaneurysmal scattered noncalcified atherosclerosis. The IVC is patent. The portal vein is occluded withcontinued maturation of the cavernous transformation now with a large varix in theporta hepatis measuring 9 mm in diameter. Lymph Nodes: No enlarged lymph nodes. Bowel: There are scattered diverticula in the descending and sigmoidcolon without evidence of diverticulitis. Patient's partial RIGHT hemicolectomywith no evidence of anastomotic stenosis and no mass at the anastomosis. Nodilated small or large bowel is present. There is a small hiatal hernia. Noabnormal bowel wall thickening is seen. Peritoneum, retroperitoneum, and mesentery: No intraperitoneal free airis present. No intraperitoneal free fluid is present. There is a loculatedfluid collection the region of the LEFT adnexa as described below. Additionally,there is a 18 x 35 mm low-attenuation focus in the RIGHT posterior upperabdomen (series 2 image 40) which abuts the posterior hemidiaphragm and has an attenuation of approximately 25 Hounsfield units. It is unclear whetherthis represents a hypoenhancing solid lesion or a high attenuation fluidcollection, although there is a small fluid attenuation focus in the region of this collection on a 03/30/2011 MRI. In retrospect, this was likely present onthe 2011 study at which time it measured 9 x 20 mm. Abdominal wall: Normal. Reproductive organs: The patient is post hysterectomy. There is a new 3.6x 5.2 cm cystic focus in the region of the LEFT vaginal cuff and presumably theLEFT adnexa (series 2 image 118). No other adnexal mass is seen. Osseous structures: No suspicious osseous lesions are present. There is unchanged appearance of the mild, grade 1, anterolisthesis of L4 on Y5dssouwnpi to bilateral pars interarticularis defects. IMPRESSION 1. Low-attenuation focus in the posterior RIGHT upper abdomen isincreased in size compared to prior studies as stated above. On the prior MRI, itappears to be be a small fluid collection. On today's exam, assessment forenhancement or solid component is slightly limited. There is a broad differential forthis potentially cystic focus. It could represent some loculated ascites or peritoneal inclusion cyst. Cystic retroperitoneal lesions may also be considered. An MRI of the abdomen with and without contrast may betterhelp assess for an enhancing wall or enhancing nodules. 2. New cystic pelvic focus likely billing customer service representative of a LEFT adnexalcystic lesion. Recommend pelvic ultrasound for further evaluation and referralto gynecology. 3. 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 4. Colonic diverticulosis without diverticulitis. 5. Small hiatal hernia. 6. Stable anterolisthesis of L4 on L5 secondary to bilateral pars interarticularis defects. Thank you for letting us participate in the care of this patient. Forquestions regarding this report, please contact the number below. Electronically signed by: Ra Milian [facility]([phone]), at 12/05/2019 9:19 AM Jarred De La Cruz MD IMG OUTSIDE INTERPRE TATION ORDERABLES documented in this encounter Visit Diagnoses Diagnosis Intra-abdominal and pelvic swelling, mass and lump, unspecified site documented in this encounter Care Teams Rn Diabetes Relationship Specialty Start Date End Date Rico Aburto MD [address] [place] [id number] PCP - General 08/26/11 09/14/21 documented as of this encounter
--- OUTSIDE RECORDS SUMMARY | 2024-01-11 15:27 | XMS_ITS | Encounter Summary ---
[place] [address] Care Team Providers Care Child Nutrition Assistant Name Role Phone Shobha Blackyn Shannan SENG Primary Care Provider [phone] Encounter Details Date Type Department Care Team (Latest Contact Info) Description 12/22/2021 8:35 AM EDT - 12/22/2021 10:45 AM EDT Hospital En[place] [address] Yoni Tate MD [facility] [place] [address] Discharge Disposition: Home Social History Tobacco Use [...] Sign Reading Time Taken Comments Blood Pressure 138/72 12/22/2021 10:20 AM EDT Pulse 67 12/22/2021 8:58 AM EDT Temperature 36.6 ??C (97.9 ??F) 12/22/2021 8:58 AM ED T Respiratory Rate 16 12/22/2021 10:30 AM EDT Oxygen Saturation 96% 12/22/2021 10:20 AM EDT Inhaled Oxygen Concentration - - Weight 74.4 kg (164 lb) 12/22/2021 8:58 AM EDT Height 157.5 cm (5' 2) 12/22/2021 8:58 AM EDT Body Mass Index 30 12/22/2021 8:58 AM EDT documented in this encounter Discharge Instructions * Discharge Instructions* Skye Flores RN - 12/22/2021 9:50 AM EDT Upper GI Endoscopy: What to [...] the day after the procedure, use an jvsa-mux-zsfgqbm spray to numb your throat. Sucking on [...] occurs, please contact your Doctor. Please call [phone] before 8pm Mon-Fri with problems, questions or concerns. If you call after 8pm or on weekends, call the Hospital at [phone] and ask to speak to the Stone Trimmer supervisor electronic coils and the carton filling machine operator will contact that person for you. When should you call for help? Call [phone] anytime you think you may need emergency [...] any problems. Where can you learn more? [facility] View your After Visit Summary and more online at [email or web address] If you would like to provide feedback about your hospital experience, please call the Office of Patient and Family Relations at . If you have received this After Visit Summary in error, please immediately return it in person to the department, or notify the [facility] Privacy Office by calling toll free at between the hours of 8AM and 5PM to arrange for our retrieval of the documents at no cost to you. Content Version: 12.2 ?? 9695-8074 [facility] [employer]. Care instructions adapted under license by [facility]. If you have questions about a medical condition or this instruction, always ask your healthcare professional. [employer] disclaims any warranty or liability for your [...] mouth daily. fluticasone propionate (Flonase) 50 mcg/actuation [place], Suspension 1 spray daily. hypromellose (SYSTANE GEL [...] H&P Notes * Yoni Tate MD - 12/22/2021 9:10 AM EDT Procedure: egd Indication: banding History of Present Illness: Amalia Moreira is a 71 y.o. woman here for follow up of esophageal varices Patient Active Problem List Diagnosis [...] for the past 24 hrs: Temp Pulse BP SpO2 O2 Device 12/22/21 0858 36.6 ??C (97.9 ??F) 67 128/63 100 % RA Axox3, nad Anicteric, MMM CTAB RRR, no m/r/g abd soft nt nd +bs Assessment and Plan: Proceed with EGD: ASA Grade: ASA 3 - Patient with moderate systemic disease with functional limitations Mallampati score:II (soft palate, uvula, fauces visible) Sedation plan: MAC Risks and benefits of the procedure were discussed with the patient. Consent has been signed. Yoni Tate MD documented in this encounter Miscellaneous Notes * Op Note - Yoni Tate MD - 12/22/2021 9:27 AM EDT DH Operative Note Patient Name: Amalia Moreira : [id number] MR#: [id number] Case Date: 12/22/2021 Surgeon: Surgeon(s) and Role: * Yoni Tate MD - Primary Procedure(s): EGD, W BAND LIGATION OF ESOPHAGEAL/GASTRIC VARICES Please see Provation report for details. documented in this encounter Plan of Treatment Scheduled Procedures Name Priority Associated Diagnoses Date/Ti me EGD, UPPER GI ENDOSCOPY (WRV U 2.09) Esophageal varices without bleeding, unspecified esophageal varices type Portal vein thrombosis documented as of this encounter Procedures Procedure Name Priority Date/Time Associated Diagnosis Comments Upper Gi Endoscopy, Leslie Varix ([id number]) 12/22/2021 9:19 AM EDT Esophageal varices without bleeding, unspecified esophageal varices type UPPER GI ENDOSCOPY Routine 12/22/2021 8: 59 AM EDT documented in this encounter Results * UPPER GI ENDOSCOPY (12/22/2021 8:59 AM EDT) UPPER GI ENDOSCOPY [facility] Endoscopy ___ Procedure Date: 12/22/2021 8:59 AM ? Patient Name: Amalia Moreira ? Date of : 1950 ? Age: 71 ? Order #: [id number] ? Instrument Name: [id number] ? ___ Procedure: ? Upper GI endoscopy Indications: ? Follow-up of esophageal varices Providers: ? Yoni Tate, Michael Pate, ? NEL, Bekah Flores Referring : ? Medicines: ? Propofol per Anesthesia Complications: ? [...] The Endoscope was ? introduced through the and advanced ? to the duodenum The patient ? tolerated the procedure well. ? Findings: ? Scarring from prior banding was seen. There were two ? large varices in the distal esophagus. Two bands were ? successfully placed with complete eradication, ? resulting in deflation of varices. ? A mild Schatzki ring was found at the ? gastroesophageal junction. ? A small hiatal hernia was present. ? The examined duodenum was normal. ? Moderate Sedation: ? Not applicable - See Anesthesia documentation Impression: ?- There were two large varices in ? the distal esophagus; banded ? - Mild Schatzki ring. ? - Small hiatal hernia. ? - Normal examined duodenum. ? - No specimens collected. Recommendation: ?- Discharge patient to home. ? - Resume previous diet. ? - Repeat upper endoscopy in 3 ? months for surveillance. ? - Return to liver clinic. ? Attending Participation: ? I personally performed the entire procedure. ? Yoni Tate, 12/22/2021 10:09:53 AM Number of Addenda: 0 Note Initiated On: 12/22/2021 8:59 AM PROVATION 12/22/2021 8:59 AM EDT Unknown GENERAL SURGICAL ORD ERABLES PROVATION documented in this encounter Visit Diagnoses [...] 9:06 AM EDT 100 mL/hr 100 mL/hr documented in this encounter Active and Recently Administered Medications Times are shown in EDT. Continuous Medication Order 12/20/2021 12/21/2021 12/22/2021 lactated ringers infusion (CANCELED) 100 mL/hr, Intravenous, CONTINUOUS, Starting on Wed12/22/21 at 0915, Until Wed12/22/21 at 1031, Endoscopy (Day of Procedure) 0906 (New Bag - Prov ider: Kyara Berger RN)0924 (Paused - Provider: Roque Zamora CRNA - Comment: Switch to gravity)0925 (Restarted - Provider: Roque Zamora CRNA)0942 (Anesthesia Volume Adjustment - Provider: Roque Zamora CRNA) documented in this encounter Care Teams Child Nutrition Assistant Relationship Specialty Start Date End Date Jacinta Black APRN [address] [place] [address] PCP - General Family Medicine 09/15/21 documented as of this encounter
--- OUTSIDE RECORDS SUMMARY | 2024-01-11 15:27 | XMS_ITS | Encounter Summary ---
[place] [address] Care Team Providers Care Dumping Machine Operator Name Role Phone Rico Aburto MD Primary Care Provider [phone] Reason for Referral * Consultation (Routine) - Closed Specialty Diagnoses / Procedures Referred By Charan benson Referred To Contact General Surgery Diagnoses Anorectal polyp Yoni Tate MD [facility] [place] [address] [facility] [place], [place] Gen Surgery [address] [place] [address] Referral ID Status Reason Start Date Expiration Date V isits Requested Visits Authorized [id number] Closed Consult, Test & Treat 11/29/2019 11/28/2020 1 1 Encounter Details Date Type Department Care Team (Late st Contact Info) Description 11/29/2019 Orders [place] [address] Yoni Tate MD [facility] [place] [address] Anorectal polyp Social History Tobacco Use Types Packs/Day Years [...] Priority Associated Diagnoses Order Schedule Referral to Colorectal Surgery Outpatient Referral Routine Anorectal polyp Ordered: 11/29/2019 documented as of this encounter Visit Diagnoses Diagnosis Anorectal polyp Anal and rectal polyp documented in this encounter Care Teams Dumping Machine Operator Relationship Specialty Start Date End Date Rico Aburto MD [address] [place] [id number] PCP - General 08/26/11 09/14/21 documented as of this encounter
--- OUTSIDE RECORDS SUMMARY | 2024-01-11 15:27 | XMS_ITS | Encounter Summary ---
[place] [address] Care Team Providers Care Solid Plasterer Name Role Phone Rico Aburto MD Primary Care Provider [phone] Encounter Details Date Type Department Care Team (Latest Contact Info) Description 01/31/2020 8:57 AM EDT - 01/31/2020 11:14 AM EDT Hospital Encounter Outpatient [place] [address] Randi Silveira MD [facility] [place] [address] Discharge Disposition: Home Social History Tobacco Use [...] Sign Reading Time Taken Comments Blood Pressure 119/50 01/31/2020 10:53 AM EDT Pulse 72 01/31/2020 10:53 AM EDT Temperature 36.7 ??C (98.1 ??F) 01/31/2020 10:34 AM E DT Respiratory Rate 18 01/31/2020 10:34 AM EDT Oxygen Saturation 97% 01/31/2020 10:53 AM EDT Inhaled Oxygen Concentration - - Weight 84.4 kg (186 lb) 01/31/2020 9:13 AM EDT Height 157.5 cm (5' 2) 01/31/2020 9:13 AM EDT Body Mass Index 34.02 01/31/2020 9:13 AM EDT documented in this encounter Discharge Instructions * Patient Instructions* Ra Willoughby MD - 01/31/2020 9:29 AM EDT DIVISION OF COLON & RECTAL SURGERY Anorectal Surgery Patient Post-operative Discharge Instructions 1. Wound Care ?? If there is a dressing, please leave the dressing intact today and remove it tomorrow morning. If you need to move your bowels, the dressing may be removed sooner. ?? Expect some drainage - this may be residual pus, or may be a small amount of blood or mucus - this is normal / expected. It may last for a 2-3 weeks. ?? Please use fluffy 4x4 gauze to absorb any drainage and keep your bottom dry. ?? You may have some packing your wound that you should remove in the sitz bath tomorrow morning. ?? Please use a sitz bath or shower 3 - 4X per day (starting tomorrow morning). ?? Sitz bath instructions: Soak your buttocks in plain warm tapwater for 15 minutes 4X/day and after bowel movements. This is comforting and also increase blood flow to the area to aid in healing. ?? You may sit on a pillow but do not sit on donut cushions as it spreads the buttocks. 2. Pain medications ?? A local anesthestic numbing block was performed during your procedure for postoperative pain control. ?? Please take [id number] pain medications for post-operative discomfort. ?? Acetaminophen (Tylenol) 1000 mg by mouth every 6 hours. ?? Ibuprofen (Motrin/Advil) 600 mg by mouth every 6 hours with food & plenty of liquids or Naproxen (Aleve) 500 mg twice daily. Take either Ibuprofen or Naproxen not both. ?? You may alternate these medications every 3 hours; ex. Tylenol at 12pm, Ibuprofen at 3pm, Tylenol at 6pm, Ibuprofen at 9 pm 3. Avoid getting constipated ?? Drink plenty of water and fluids (over 2 liters per day). ?? Each morning please take a daily fiber supplement (such as Citrucel or BeneFiber), one heaping tablespoon in 8 oz. of water. (MiraLax may be recommended instead of fiber) ?? If you do not have a bowel movement in 48 hours then take 30 cc of Milk of Magnesia every 12 hours until you have a bowel movement. If you do not have a bowel movement after 2 doses of Milk of Magnesia please call (see below). 4. When to call ?? Fever > 101.5 F ?? worsening pain ?? active bleeding, passing blood clots ?? difficulty/inability to pass urine (urinary retention) or stool (constipation) ?? any other worrisome condition or question ?? during regular work hours call the Surgery Clinic at ?? after hours / nights / weekends / holidays: call and ask for the General Surgery Resident doctor On-Call. ?? Follow-up. You will have a post-operative follow-up appointment with your Surgical Team scheduled, usually in 2 - 4 weeks. If you have any questions, please call . Division of Colon and Rectal Surgery, [facility] [address] ??? [place] [address] ??? documented in this encounter Medications at Time of Discharge Medication Sig Dispensed Refills Start Date End Date ibuprofen (Advil;Motrin) 400 mg Tablet Take 800 [...] PRF FLARE OF ABD PAIN 12/27/2019 09/30/2022 traMADoL (Ultram) 50 mg Tablet TAKE 1 TO 2 TABLETS BY MOUTH TWICE DAILY NEEDED FOR PAIN 11/03/2019 12/02/2021 levothyroxine (SYNTHROID) 25 mcg tablet Take 100 mcg by mouth daily. 10/15/2021 omeprazole (PRILOSEC) 10 mg capsule Take 10 mg by mouth daily. 10/15/2021 documented as of this encounter Progress Notes * Mikael Padilla RN - 01/31/2020 11:10 AM EDT Discharge instructions and medications reviewed with patient and escort. All questions answered andwritten copy sent home with patient. Patient ambulated to car for discharge accompanied by [facility] staff member. Reminded to sitz bath or shower 3-4 times day. * Charline Welsh RN - 01/24/2020 12:25 PM EDT During this call the patient was questioned regarding travel outside of [place], fever, cough or other illness in the last 14 days. Patient also questioned regarding any exposure to a COVID positive person, a person awaiting results from testing or a person in quarantine. Patient denies any positive responses to the above questions for themselves or their escort for theday of procedure. Patient informed that a health screening and mask will be required upon arrival for every patient and escort. documented in this encounter H&P Notes * Ra Willoughby MD - 01/31/2020 9:27 AM EDT H&P 24hr interval update/Pre-operative note Please see Dr. Silveira's note from clinic for further information. ID: Amalia Moreira is a 69 y.o. female with a hx of small anterior midline polyp who presents to [facility] for EUA and resection. Past Medical History: Diagnosis Date ??? Asthma ??? GERD (gastroesophageal reflux disease) ??? Hypothyroid ??? IBS (irritable bowel syndrome) Past Surgical History: Procedure Laterality Date ??? APPENDECTOMY ??? CHOLECYSTECTOMY ??? HEMICOLECTOMY right ??? HYSTERECTOMY ??? OVARY REMOVAL right ??? PRG UNLISTED DIAGNOSTIC GASTROENTEROLOGY PROCEDURE 12/21/2013 VIDEO CAPSULE ENDOSCOPY performed by Kenrick Giordano MD at [facility] ENDOSCOPY ??? PRO COLONOSCOPY, DIAGNOSTIC 09/22/2011 COLONOSCOPY, DIAGNOSTIC performed by KENRICK GIORDANO at [facility] ENDOSCOPY ??? PRO COLONOSCOPY, DIAGNOSTIC 12/21/2013 COLONOSCOPY, DIAGNOSTIC performed by Kenrick Giordano MD at [facility] ENDOSCOPY ??? PRO COLONOSCOPY, DIAGNOSTIC N/A 11/20/2019 COLONOSCOPY, DIAGNOSTIC performed by Yoni Tate MD at [facility] ENDOSCOPY ??? PRO COLONOSCOPY, REMV LESN, SNARE N/A 11/20/2019 COLONOSCOPY, POLYPECTOMY, REMOVAL LESION BY SNARE (WRVU 4.67) performed by Yoni Tate MD at [facility] ENDOSCOPY ??? PRO UPPER GI ENDOSCOPY, DIAGNOSTIC 11/07/2013 EGD, UPPER GI ENDOSCOPY performed by Rico Castro MD at [facility] ENDOSCOPY ??? PRO UPPER GI ENDOSCOPY, DIAGNOSTIC 12/21/2013 EGD, UPPER GI ENDOSCOPY performed by Kenrick Giordano MD at [facility] ENDOSCOPY ??? PRO UPPER GI ENDOSCOPY, DIAGNOSTIC N/A 11/20/2019 EGD, UPPER GI ENDOSCOPY performed by Yoni Tate MD at [facility] ENDOSCOPY ??? UPPER GI ENDOSCOPY, EXAM 09/22/2011 UPPER GI ENDOSCOPY performed by KENRICK GIORDANO at [facility] ENDOSCOPY No current facility-administered medications on file prior to encounter. Current Outpatient Medications on File Prior to Encounter Medication Sig Dispense Refill ??? albuterol (PROVENTIL HFA;VENTOLIN HFA) 90 mcg/Actuation inhaler Inhale 1 puff into the lungs daily. Use with spacer ??? levothyroxine (SYNTHROID) 25 mcg tablet Take 100 mcg by mouth daily. ??? omeprazole (PRILOSEC) 10 mg capsule Take 10 mg by mouth daily. ??? hyoscyamine (ANASPAZ;LEVSIN) 0.125 mg Tablet TK 1 T PO Q 8 H PRF FLARE OF ABD PAIN ??? traMADoL (Ultram) 50 mg Tablet TAKE 1 TO 2 TABLETS BY MOUTH TWICE DAILY NEEDED FOR PAIN ??? ibuprofen (Advil;Motrin) 400 mg Tablet [...] by mouth every 4 hours as needed. S: Amalia Moreira endorses no recent change in health. Denies any fever, chills, cough, congestion, change in bowel habits. Prior to arrival today, Amalia Moreira was in a normal state of health. O: Physical Exam: Gen: AAOx3, resting comfortably CVS: regular rate Pulm: Unlabored breathing on room air, no audible wheezes Abd: soft, non tender, non distended Perineum: deferred for OR Ext: wwp A/P: Amalia Moreira is a 69 y.o. female who presents with small anterior midline polyp who presents to [facility] for EUA and resection.. Will proceed with planned operation. Ra Willoughby MD 01/30/2020 General Surgery [id number] * Ra Willoughby MD - 01/30/2020 9:48 PM EDT H&P 24hr interval update/Pre-operative note Please see Dr. Silveira's note from clinic for further information. ID: Amalia Moreira is a 69 y.o. female with a hx of small anterior midline polyp who presents to [facility] for EUA and resection. Past Medical History: Diagnosis Date ??? Asthma ??? GERD (gastroesophageal reflux disease) ??? Hypothyroid ??? IBS (irritable bowel syndrome) Past Surgical History: Procedure Laterality Date ??? APPENDECTOMY ??? CHOLECYSTECTOMY ??? HEMICOLECTOMY right ??? HYSTERECTOMY ??? OVARY REMOVAL right ??? PRG UNLISTED DIAGNOSTIC GASTROENTEROLOGY PROCEDURE 12/21/2013 VIDEO CAPSULE ENDOSCOPY performed by Kenrick Giordano MD at [facility] ENDOSCOPY ??? PRO COLONOSCOPY, DIAGNOSTIC 09/22/2011 COLONOSCOPY, DIAGNOSTIC performed by KENRICK GIORDANO at [facility] ENDOSCOPY ??? PRO COLONOSCOPY, DIAGNOSTIC 12/21/2013 COLONOSCOPY, DIAGNOSTIC performed by Kenrick Giordano MD at [facility] ENDOSCOPY ??? PRO COLONOSCOPY, DIAGNOSTIC N/A 11/20/2019 COLONOSCOPY, DIAGNOSTIC performed by Yoni Tate MD at [facility] ENDOSCOPY ??? PRO COLONOSCOPY, REMV LESN, SNARE N/A 11/20/2019 COLONOSCOPY, POLYPECTOMY, REMOVAL LESION BY SNARE (WRVU 4.67) performed by Yoni Tate MD at [facility] ENDOSCOPY ??? PRO UPPER GI ENDOSCOPY, DIAGNOSTIC 11/07/2013 EGD, UPPER GI ENDOSCOPY performed by Rico Castro MD at [facility] ENDOSCOPY ??? PRO UPPER GI ENDOSCOPY, DIAGNOSTIC 12/21/2013 EGD, UPPER GI ENDOSCOPY performed by Kenrick Giordano MD at [facility] ENDOSCOPY ??? PRO UPPER GI ENDOSCOPY, DIAGNOSTIC N/A 11/20/2019 EGD, UPPER GI ENDOSCOPY performed by Yoni Tate MD at [facility] ENDOSCOPY ??? UPPER GI ENDOSCOPY, EXAM 09/22/2011 UPPER GI ENDOSCOPY performed by KENRICK GIORDANO at [facility] ENDOSCOPY No current facility-administered medications on file prior to encounter. Current Outpatient Medications on File Prior to Encounter Medication Sig Dispense Refill ??? albuterol (PROVENTIL HFA;VENTOLIN HFA) 90 mcg/Actuation inhaler Inhale 1 puff into the lungs daily. Use with spacer ??? levothyroxine (SYNTHROID) 25 mcg tablet Take 100 mcg by mouth daily. ??? omeprazole (PRILOSEC) 10 mg capsule Take 10 mg by mouth daily. ??? hyoscyamine (ANASPAZ;LEVSIN) 0.125 mg Tablet TK 1 T PO Q 8 H PRF FLARE OF ABD PAIN ??? traMADoL (Ultram) 50 mg Tablet TAKE 1 TO 2 TABLETS BY MOUTH TWICE DAILY NEEDED FOR PAIN ??? ibuprofen (Advil;Motrin) 400 mg Tablet [...] by mouth every 4 hours as needed. S: Amalia Moreira endorses no recent change in health. Denies any fever, chills, cough, congestion, change in bowel habits. Prior to arrival today, Amalia Moreira was in a normal state of health. O: Physical Exam: Gen: AAOx3, resting comfortably CVS: regular rate Pulm: Unlabored breathing on room air, no audible wheezes Abd: soft, non tender, non distended Perineum: deferred for OR Ext: wwp A/P: Amalia Moreira is a 69 y.o. female who presents with small anterior midline polyp who presents to [facility] for EUA and resection.. Will proceed with planned operation. Ra Willoughby MD 01/30/2020 General Surgery [id number] documented in this encounter Miscellaneous Notes * Op Note - Randi Silveira MD - 01/31/2020 11:14 AM EDT [facility] Operative Note Patient Name: Amalia Moreira : [id number] MR#: [id number] Case Date: 01/31/2020 Surgeon: Surgeon(s) and Role: * Randi Silveira MD - Primary * Ra Willoughby MD - Resident Preoperative diagnosis: ANAL POLYP Postoperative diagnosis: ANAL POLYP Procedure(s) (LRB): EXCISION RECTAL TUMOR, TRANSANAL APPROACH, PARTIAL THICKNESS (WRVU 8.13) (N/A) Anesthesia: General Estimated Blood Loss: * No values recorded between 01/31/2020 10:08 AM and 01/31/2020 10:30 AM * Specimens removed during surgery: Order Name Source Comment Collection Info Order Time SPECIMEN TO PATHOLOGY History of tubular adenoma ANAL POLYP Anterior Midline distal rectal polyp excision 01/31/2020 10:27 AM Time specimen removed from patient: 10:27 AM Number of tissue samples (in container) 1 Drains: * No LDAs found * Surgical Closure: NA Disposition: aroused from sedation, and taken to the recovery room in a stable condition Condition: doing well without problems (Please see the Surgical Encounter Summary for any Implant and Specimen details pertinent to this patient.) HPI/Surgical Indications: Amalia Moreira is a 69 yo woman with a small anterior midline polyp that wasbiopsied as a tubular adenoma but not completely removed. This is at the anorectal junction. Could be removed piecemeal in the office with forceps or in one piece in OR. Recurrence would be lower with removal in one piece and lower risk of bleeding. ?? Amalia prefers removal in the OR. No other procedures are planned for the OR as she will have imaging follow up for her RUQ cyst and left adnexal lesion. We discussed the risks and benefits of excision in the OR including pain, bleeding, infection, change in bowel control, urinary retention, recurrence, the possibility there is no residual adenomatous material, and problems with anesthesia. Procedure Description: Amalia Moreira was brought to the operating room. She positioned herself in the prone jackknife position on the operating table over gel rolls. Deep sedation was induced by anesthesia. The buttocks were taped apart and the perineum was prepped with Betadine and sterilely draped. A surgical timeout was called confirming the patient and procedures to be performed. No antibiotics were indicated and the patient had SCDs for DVT prophylaxis. 30cc of 0.5% bupivacaine with epinephrine mixed with 1% lidocaine was injected as an anal block. We began the procedure with an external examination. There are small, circumferential skin tags. Noskin changes, no erythema or induration. On digital rectal exam, there are no mucosal lesions, no masses, no stenosis, no gross blood. Anoscopy was performed with the [facility] retractor. Findings include polypoid lesion just proximal to the dentate line in the anterior midline. No other rectal or anal canal lesions were seen. Electrocautery was used to excise the polyp. A 3-0 vicryl running suture was used to close themucosal defect. There was no bleeding. The buttock tapes were removed. Gauze and mesh underwear were placed as a dressing. The patient wasreturned to the supine position on the gurney and awoken from deep sedation. She was transferred tothe recovery room in good condition. Randi Silveira MD FACS FASCRS traditional chinese herbalist Division of Colon and Rectal Surgery [facility] Pager [phone] Infection Bundle used? N/A Attestation: Case Date: 01/31/2020 I was present and I participated during the entire procedure (does not need to include opening and closing). Randi Silveira MD 01/31/2020 * Brief Op Note - Randi Silveira MD - 01/31/2020 10:32 AM EDT Brief Operative Note Patient Name: Amalia Moreira : [id number] MR#: [id number] Case Date: 01/31/2020 Surgeon: Surgeon(s) and Role: * Randi Silveira MD - Primary * Ra Willoughby MD - Resident Preoperative diagnosis: ANAL POLYP Postoperative diagnosis: ANAL POLYP Procedure(s) (LRB): EXCISION RECTAL TUMOR, TRANSANAL APPROACH, PARTIAL THICKNESS (WRVU 8.13) (N/A) Anesthesia: General Findings: -5mm polyp anterior midline distal rectal mucosa (lesion proximal to dentate line, transanal excision Complications: none Estimated Blood Loss: * No values recorded between 01/31/2020 10:08 AM and 01/31/2020 10:30 AM * Specimens removed during surgery: Order Name Source Comment Collection Info Order Time SPECIMEN TO PATHOLOGY History of tubular adenoma ANAL POLYP Anterior Midline distal rectal polyp excision 01/31/2020 10:27 AM Time specimen removed from patient: 10:27 AM Number of tissue samples (in container) 1 Fluids: Intraprocedure Crystalloid Total Output Blood Loss 10 mL Total Output 10 mL PRBCs: none (See Anesthesia Record/Report for Other Blood Products) Urine Output: (no urine output recorded) Drains: none Disposition: awakened from anesthesia, extubated and taken to the recovery room in a stable condition, having suffered no apparent untoward event. Condition: doing well without problems (Please see the Surgical Encounter Summary for any Implant and Specimen details pertinent to this patient.) Infection Bundle used? N/A Ra Willoughby MD 01/31/2020 10:34 AM documented in this encounter Plan of Treatment Scheduled Procedures Name Priority Associated Diagnoses Date/Ti me EGD, UPPER GI ENDOSCOPY (WRV U 2.09) Esophageal varices without bleeding, unspecified esophageal varices type Portal vein thrombosis documented as of this encounter Procedures Procedure Name Priority Date/Time Associated Diagnosis Comments SURGICAL PATHOLOGY REPORT Routine 01/31/2020 10:27 AM EDT SPECIMEN TO PATHOLOGY Routine 01/31/2020 10:27 AM EDT Exc Rectal Tumor, Transanal Approach, Not Incl Muscularis Propria ([id number]) Yes 01/31/2020 9:53 AM EDT ANAL POLYP documented in this encounter Results * Surgical Pathology Report (01/31/2020 10:27 AM EDT) Final Diagnosis [id number] ? Location: [facility] The signing pathologist has (i) examined the relevant preparation(s) for the specimen(s) and (ii) rendered or confirmed the diagnosis(es). . ?Surgical Pathology DIAGNOSIS Anterior mid line distal rectum, ?? polypectomy: Tubular adenoma involving squamocolumnar junctional anal mucosa. Resection margins are negative for adenomatous epithelium. Electronically signed by: ??Luisa COLON PhD, Romina Verified: ??02/02/2020 ?Pathologist Performed at: ??-[facility] Dept. of Pathology, [place], [place] SPECIMEN(S) SUBMITTED A - Anterior Midline distal rectal polyp, excision (1) CLINICAL INFORMATION Anal polyp SPECIMEN PROCESSING A - Labeled/Fixative: Anterior mid line distal rectal polyp, fresh. Quantity/Size: Single, 1.9 x 0.9 x 0.5 cm. Tissue Description: banuelos rubbery tissue. Sections/Processi ng: Quadrisected and entirely submitted in 1 cassette labeled A1. ??MV 02/02/2020 1:55 PM EDT [facility] GI Biopsy 01/31/2020 10:2 7 AM EDT 01/31/2020 10:27 AM EDT Randi Silveira MD PATHOLOGY/CYTOLOGY [place] Performing Organization Address [facility] Co de Phone Number [facility] [place] [address] * Specimen to Pathology (01/31/2020 10:27 AM EDT) AP Specimen 01/31/2020 10:2 7 AM EDT 01/31/2020 10:27 AM EDT Narrative [facility] - 01/31/2020 10:27 AM EDT Specimen requisition ordered. ??Separate Pathology report to follow Randi Silveira MD PATHOLOGY/CYTOLOGY [place] Performing Organization Address [facility] Co de Phone Number [facility] [place] [address] documented in this encounter Visit Diagnoses Not on filedocumented in this encounter Administered Medications Inactive Administered Medications - up to 3 most recent administrations Medication Order MAR Action Action Date Dose Rate Site acetaminophen (Tylenol) 500 mg tablet 1 dose, Starting on Wed01/31/20 at 0904, Until Wed01/31/20 at 0915, Caitlin Buenrostro: cabinet override Given 01/31/2020 9:15 AM EDT 500 mg documented in this encounter Active and Recently Administered Medications Times are shown in EDT. Scheduled Medication Order 01/29/2020 01/30/2020 01/31/2020 sodium phosphates (FLEET) 19-7 gram/118 mL rectal enema 1 Bottle 1 Bottle, Rectal, EVERY 15 MIN, 2 doses, First dose on Wed01/31/20 at 0930, Last dose on Wed01/31/20 at 0945, Patient to self-administer Fleet enema on commode. If patient administered at home disregard., Day of Surgery (Day of Procedure), Routine 0930 (Due)0945 (Due) Continuous Medication Order 01/29/2020 01/30/2020 01/31/2020 lactated ringers infusion (CANCELED) 1,000 mL, at 100 mL/hr, Intravenous, CONTINUOUS, Starting on Wed01/31/20 at 0930, Until Wed01/31/20 at 1113, Day of Surgery (Day of Procedure) 0954 ([facility] - Prov ider: Nupur Toscano, [employer]) PRN Medication Order 01/29/2020 01/30/2020 01/31/2020 BUpivacaine-EPINEPHrine 0.25 %-1:200,000 injection (CANCELED) ONCE PRN, Starting on Wed01/31/20 at 1009, Until Wed01/31/20 at 1321, Intra-Operative (Intra-Procedure), Routine 1009 (Given - Provid er: Randi Silveira MD - Comment: 0.25% bupivacaine with epi mixed 1:1 with 1% lidocaine plain, 20 ml total)1015 (Given - Provider: Randi Silveira MD - Comment: 0.25% bupivacaine with epi mixed 1:1 with 1% lidocaine plain, 10 ml total) lidocaine (PF) (XYLOCAINE) 10 mg/mL (1 %) injection (CANCELED) ONCE PRN, Starting on Wed01/31/20 at 1009, Until Wed01/31/20 at 1321, Intra-Operative (Intra-Procedure), Routine 1009 (Given - Provid er: Randi Silveira MD - Comment: 0.25% bupivacaine with epi mixed 1:1 with 1% lidocaine plain, 20 ml total)1015 (Given - Provider: Randi Silveira MD - Comment: 0.25% bupivacaine with epi mixed 1:1 with 1% lidocaine plain, 10 ml total) No Frequency Medication Order 01/29/2020 01/30/2020 01/31/2020 acetaminophen (Tylenol) 500 mg tablet (COMPLETED) 1 dose, Starting on Wed01/31/20 at 0904, Until Wed01/31/20 at 0915, Caitlin Buenrostro: cabinet override 0915 (Given - Provid er: Pratik Fiore RN) documented in this encounter Care Teams Solid Plasterer Relationship Specialty Start Date End Date Rico Aburto MD [address] [place] [id number] PCP - General 08/26/11 09/14/21 documented as of this encounter
--- OUTSIDE RECORDS SUMMARY | 2024-01-11 15:27 | XMS_ITS | Encounter Summary ---
[place] [address] Care Team Providers Care Line Manager Name Role Phone Rico Aburto MD Primary Care Provider [phone] Reason for Visit * Consultation (Routine) - Closed Specialty Diagnoses / Procedures Referred By Charan benson Referred To Contact General Surgery Diagnoses Anorectal polyp Yoni Tate MD [facility] [place] [address] [facility] Gen Surgery [address] [place] [address] Referral ID Status Reason Start Date Expiration Date V isits Requested Visits Authorized [id number] Closed Consult, Test & Treat 11/29/2019 11/28/2020 1 1 Encounter Details Date Type Department Care Team (Late st Contact Info) Description 01/02/2020 2:30 PM EDT Office [place] [address] Randi Silveira MD [facility] [place] [address] Anal polyp Social History Tobacco Use Types Packs/Day [...] - - Temperature - - Respiratory Rate 18 01/02/2020 2:11 PM EDT Oxygen Saturation - - Inhaled Oxygen Concentration - - Weight 87.5 kg (193 lb) 01/02/2020 2:11 PM EDT Height - - Body Mass Index 35.52 11/27/2019 8:01 AM EDT documented in this encounter Progress Notes * Randi Silveira MD - 01/02/2020 2:30 PM EDT Colorectal Surgery Outpatient Consultation ~ Division of Colon and Rectal Surgery ~ [facility] HPI: Amalia Moreira is a pleasant 69 y.o. female who we were asked to see by Dr. Tate regarding No chief complaint on file. . The patient's PCP is Rico Aburto MD. Amalia presents after referral from Dr. Tate for a very distal tubular adenoma biopsied but not removed during recent colonoscopy done to evaluate new abdominal pain and bloating. She had 3 other polyps removed that were TAs and SSPs. Amalia is being evaluated for abdominal pain that she describes as band like and severe. A CT showed right perinephric and retrohepatic mass and a cystic mass in thepelvis. She was seen by Dr. De La Cruz for these findings. He has discussed a plan for surveillance ofthe mass with a repeat CT scan in 6 months and referred her for transvaginal US for the cystic lesion. 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 Dr. Motley did not feel that resection was warranted and also rec ommended repeat imaging. Amalia is here today for evaluation of the anal polyp but continues to be frustrated by no answer for her abdominal pain. Has variable stools (diarrhea to hard stools). Has cramping. Uses a stool softener. No incontinence. Review of Systems Constitutional: Negative for fever and weight loss. Respiratory: Positive for cough and shortness of breath. Genitourinary: Negative for stress incontinence and urge incontinence. Gastrointestinal: Positive for abdominal discomfort. Negative for constipation and diarrhea. Psychiatric/Behavioral: Negative for depression and physiological symptoms of anxiety. Hematologic/Lymphatic: Negative for easy bleeding. Does not bruise/bleed easily. Allergic/Immunologic: Negative for immunocompromised state. Musculoskeletal: Positive for stiffness. Cardiovascular: Negative for leg edema. Skin: Negative for raised rash. COREFO Responses 01/02/2020 Incontinence Scale 30.55 Social Impact Scale 33.33 Frequency Scale 12.5 Stool Releated Aspects 41.66 Medication Scale 0 Total COREFO Score 27.88 The COREFO questionnaire is a validated questionnaire with 27 questions to assess colorectal functional outcome. Patients are asked to consider the two week period prior before filling out the questionnaire. Category scores range from zero to 100. A total score is calculated from the categories above, also ranging from zero to 100. A higher score represents an increased level of functional disturbance. Past medical history: Past Medical History: Diagnosis Date ??? Asthma ??? GERD (gastroesophageal reflux disease) ??? Hypothyroid ??? IBS (irritable bowel syndrome) Past surgical history: Past Surgical History: Procedure Laterality Date ??? APPENDECTOMY ??? CHOLECYSTECTOMY ??? HEMICOLECTOMY right ??? HYSTERECTOMY ??? OVARY REMOVAL right ??? PRG UNLISTED DIAGNOSTIC GASTROENTEROLOGY PROCEDURE 12/21/2013 VIDEO CAPSULE ENDOSCOPY performed by Ximena Giordano MD at [facility] ENDOSCOPY ??? PRO COLONOSCOPY, DIAGNOSTIC 09/22/2011 COLONOSCOPY, DIAGNOSTIC performed by XIMENA GIORDANO at [facility] ENDOSCOPY ??? PRO COLONOSCOPY, DIAGNOSTIC 12/21/2013 COLONOSCOPY, DIAGNOSTIC performed by Ximena Giordano MD at [facility] ENDOSCOPY ??? PRO COLONOSCOPY, DIAGNOSTIC N/A 11/20/2019 COLONOSCOPY, DIAGNOSTIC performed by Yoni Tate MD at [facility] ENDOSCOPY ??? PRO COLONOSCOPY, REMV LESN, SNARE N/A 11/20/2019 COLONOSCOPY, POLYPECTOMY, REMOVAL LESION BY SNARE (WRVU 4.67) performed by Yoni Tate MD at [facility] ENDOSCOPY ??? PRO UPPER GI ENDOSCOPY, DIAGNOSTIC 11/07/2013 EGD, UPPER GI ENDOSCOPY performed by Rico Castro MD at [facility] ENDOSCOPY ??? PRO UPPER GI ENDOSCOPY, DIAGNOSTIC 12/21/2013 EGD, UPPER GI ENDOSCOPY performed by Ximena Giordano MD at [facility] ENDOSCOPY ??? PRO UPPER GI ENDOSCOPY, DIAGNOSTIC N/A 11/20/2019 EGD, UPPER GI ENDOSCOPY performed by Yoni Tate MD at [facility] ENDOSCOPY ??? UPPER GI ENDOSCOPY, EXAM 09/22/2011 UPPER GI ENDOSCOPY performed by XIMENA GIORDANO at [facility]COPY Allergies: Percodan [oxycodone-aspirin], House dust, Percocet [oxycodone- acetaminophen], and Prednisone Medications: reviewed in the electronic medical record. Current Outpatient Medications on File Prior to Visit Medication Sig Dispense Refill ??? hyoscyamine (ANASPAZ;LEVSIN) 0.125 mg Tablet TK [...] capsule Take 10 mg by mouth daily. No current facility-administered medications on file prior to visit. Social history: reports that she has never smoked. She has never used smokeless tobacco. She reports that she does not drink alcohol or use drugs. Family medical history: Family History Problem Relation Age of Onset ??? Breast Cancer Sister Patient denies a family history of: colorectal cancer, colorectal polyps, diverticular disease, Crohn disease and ulcerative colitis. Patient admits a family history of: none. Physical exam: Vitals:Resp. rate 18, weight 87.5 kg (193 lb).@BMI BMI: Body mass index is 35.52 kg/m??. General Appearance: NAD Neuro: Normal gait Psych: Normal affect Eyes: EOMI ENT: MMM CV: NSR Resp: CTAB Lymph: No cervical LAD GI Abdomen: Soft obese. Mild diffuse tenderness Digital Rectal Exam: The patient was examined in the prone alexandria knife position with Monique assisting. The perianal skin is normal. The anus is closed. On digital rectal exam resting tone is normal and squeeze tone is normal. There is normal relaxation with valsalva. There are no masses. There is no gross blood. There is no tenderness to palpation. The anal sphincter feels thin in the anterior position. Anoscopy: The well lubricated anoscope was inserted into the anal canal and the entire anal canal and distal rectum were inspected. Findings include: Apparent polypoid lesion 3mm in the anterior midline at the anorectal junction. On review of the colonoscopy images, this corresponds to the lesion seen by Dr. Tate. Ext: No LE edema. Labs: reviewed. Endoscopy: reviewed. Path: reviewed. Imaging: reviewed. Impression/Plan: Amalia Moreira is a 69 yo woman with a small anterior midline polyp that was biopsiedas a tubular adenoma but not completely removed. This is at the anorectal junction. Could be removed piecemeal in the office with forceps or in one piece in OR. Recurrence would be lower with removalin one piece and lower risk of bleeding. Amalia prefers removal in the OR. Will ensure no other procedures are being performed in an effort to coordinate with one anesthetic. If imaging surveillance is planned for other incidental findings, then would plan EUA and resection in OR. Randi Silveira MD fast food crew lead Division of Colon and Rectal Surgery [facility] Pager [phone] documented in this encounter Plan of Treatment Scheduled Procedures Name Priority Associated Diagnoses Date/Ti me EGD, UPPER GI ENDOSCOPY (WRV U 2.09) Esophageal varices without bleeding, unspecified esophageal varices type Portal vein thrombosis documented as of this encounter Visit Diagnoses Diagnosis Anal polyp Anal and rectal polyp documented in this encounter Care Teams Line Manager Relationship Specialty Start Date End Date Rico Aburto MD [address] [place] [address] PCP - General 08/26/11 09/14/21 documented as of this encounter
--- OUTSIDE RECORDS SUMMARY | 2024-01-11 15:27 | XMS_ITS | Encounter Summary ---
[place] [address] Care Team Providers Care Airline Ticket Agent Name Role Phone Rico Aburto MD Primary Care Provider [phone] Encounter Details Date Type Department Care Team (Latest Contact Info) Description 02/16/2020 12:43 PM EDT - 02/16/2020 11:59 PM EDT Hospital En[place] [address] Prasad Romero MD [facility] [place] [address] Simple ovarian cyst Discharge Disposition: Home Social [...] daily. 10/15/2021 documented as of this encounter Plan of Treatment Scheduled Procedures Name Priority Associated Diagnoses Date/Ti me EGD, UPPER GI ENDOSCOPY (WRV U 2.09) Esophageal varices without bleeding, unspecified esophageal varices type Portal vein thrombosis documented as of this encounter Procedures Procedure Name Priority Date/Time Associated Diagnosis Comments US TRANSVAGINAL NON OB Routine 02/16/2020 1:07 PM EDT Simple ovarian cyst documented in this encounter Results * US Transvaginal Non OB (02/16/2020 1:07 PM EDT) Anatomical Region Laterality Modality Ultrasound 02/16/2020 1:04 PM EDT Impressions 02/16/2020 1:25 PM EDT ?? Patient status post hysterectomy and RIGHT oophorectomy 1. The LEFT ovary has a simple cyst measuring 4.7 x 4.7 x 3.0 cm. There is also a small follicle seen. 2. Free fluid is seen. Thank you for letting us participate in the care of this patient. For questions regarding this report, please contact the number below. ??Melissa Capellan, [facility] & Dept Chair - Rad Electronically Signed Final Report ?? 02/16/2020 01:24 pm Narrative 02/16/2020 1:25 PM EDT Gynecological Report ?(Signed Final 02/16/2020 01:24 pm) PATIENT INFO: ID #: ? [id number] ?: ??50 (69 yrs)(F) Name: ? AMALIA Nguyen SHE[place]URNE ?Visit Date: 02/16/2020 01:04 pm PERFORMED BY: Performed By: ? Lamar Garcia RDMS Attending: ?Timi COLON, Melissa Ponce Referred By: ?PRASAD A JULIAETTA Location: ? [facility] SERVICE(S) PROVIDED: ??UTV - Transvaginal - [id number] ?[id number] INDICATIONS: ??69 yo with diffuse abd pain, simple L ovarian ??cyst found, here for follow up TECHNIQUE/SCAN QUALITY: Technique: ?Transducer ID#:[id number] COMPARISON: Prior CT 11/01/19 -------- HISTORY: -------- Age: ?? 69 ------- UTERUS: ------- Uterus: ? S/p Hysterectomy Position: ?? Surgically absent ENDOMETRIUM: RIGHT OVARY: Status: ?? Surgically absent LEFT OVARY: Status: ?? Visualized Size (cm) ?L: ??5.0 ? W: ?? 5.2 ?H: ??3.2 Vol (ml): ?42.6 Morphology: ?Normal appearance Type: ?? Simple cyst Size (cm) ?L: ??4.7 ? W: ?? 4.7 ?H: ??2.9 Vol (ml): ?33.5 Procedure Note Melissa Capellan MD - 02/16/2020 Gynecological Report (Signed Final 02/16/2020 01:24 pm) PATIENT INFO: ID #: [id number] : 50 (69 yrs)(F) Name: AMALIA MOREIRA Visit Date: 02/16/2020 01:04 pm PERFORMED BY: Performed By: Lamar Garcia RDMS Attending: Melissa Capellan MD Referred By: PRASAD ROMERO Location: [facility] SERVICE(S) PROVIDED: UTV - Transvaginal - [id number] INDICATIONS: 69 yo with diffuse abd pain, simple L ovarian cyst found, here for follow up TECHNIQUE/SCAN QUALITY: Technique: Transducer ID#:[id number] COMPARISON: Prior CT 11/01/19 -------- HISTORY: -------- Age: 69 ------- UTERUS: ------- Uterus: S/p Hysterectomy Position: Surgically absent ENDOMETRIUM: RIGHT OVARY: Status: Surgically absent LEFT OVARY: Status: Visualized Size (cm) L: 5.0 W: 5.2 H: 3.2 Vol (ml): 42.6 Morphology: Normal appearance Type: Simple cyst Size (cm) L: 4.7 W: 4.7 H: 2.9 Vol (ml): 33.5 IMPRESSION Patient status post hysterectomy and RIGHT oophorectomy 1. The LEFT ovary has a simple cyst measuring 4.7 x 4.7 x 3.0 cm. There is also a small follicle seen. 2. Free fluid is seen. Thank you for letting us participate in the care of this patient. For questions regarding this report, please contact the number below. Melissa Capellan [facility] & Dept Chair - Rad Electronically Signed Final Report 02/16/2020 01:24 pm Prasad Romero MD IMG US PELVIC ORDERA BLES documented in this encounter Visit Diagnoses Diagnosis Simple ovarian cyst Other and unspecified ovarian cyst documented in this encounter Care Teams Airline Ticket Agent Relationship Specialty Start Date End Date Rico Aburto MD [address] [place] [address] PCP - General 08/26/11 09/14/21 documented as of this encounter
--- OUTSIDE RECORDS SUMMARY | 2024-01-11 15:27 | XMS_ITS | Encounter Summary ---
[place] [address] Care Team Providers Care Lepidopterist Name Role Phone Rico Aburto MD Primary Care Provider [phone] Encounter Details Date Type Department Care Team (Late st Contact Info) Description 01/31/2020 10:10 AM EDT - 01/31/2020 11:30 AM EDT Surgery [place] [address] Randi Silveira MD [facility] [place] [address] EXCISION RECTAL TUMOR, TRANSANAL APPROACH, PARTIAL THICKNESS (WRVU 8.13) Social History Tobacco Use Types Packs/Day Years [...] for postoperative pain control. ?? Please take [id number] pain medications for post-operative discomfort. ?? Acetaminophen [...] . Division of Colon and Rectal Surgery, [facility] [address] ??? [place] [address] ??? documented in this encounter Medications at [...] patient was questioned regarding travel outside of [place], fever, cough or other illness in the [...] small anterior midline polyp who presents to [facility] for EUA and resection. Past Medical History: Diagnosis Date ??? Asthma ??? GERD (gastroesophageal reflux disease) ??? Hypothyroid ??? IBS (irritable bowel syndrome) Past Surgical History: Procedure Laterality Date ??? APPENDECTOMY ??? CHOLECYSTECTOMY ??? HEMICOLECTOMY right ??? HYSTERECTOMY ??? OVARY REMOVAL right ??? PRG UNLISTED DIAGNOSTIC GASTROENTEROLOGY PROCEDURE 12/21/2013 VIDEO CAPSULE ENDOSCOPY performed by Kenrick Giordano MD at [facility] ENDOSCOPY ??? PRO COLONOSCOPY, DIAGNOSTIC 09/22/2011 COLONOSCOPY, DIAGNOSTIC performed by KENRICK GIORDANO at [facility] ENDOSCOPY ??? PRO COLONOSCOPY, DIAGNOSTIC 12/21/2013 COLONOSCOPY, DIAGNOSTIC performed by Kenrick Giordano MD at [facility] ENDOSCOPY ??? PRO COLONOSCOPY, DIAGNOSTIC N/A 11/20/2019 COLONOSCOPY, DIAGNOSTIC performed by Yoni Tate MD at [facility] ENDOSCOPY ??? PRO COLONOSCOPY, REMV LESN, SNARE N/A 11/20/2019 COLONOSCOPY, POLYPECTOMY, REMOVAL LESION BY SNARE (WRVU 4.67) performed by Yoni Tate MD at [facility] ENDOSCOPY ??? PRO UPPER GI ENDOSCOPY, DIAGNOSTIC 11/07/2013 EGD, UPPER GI ENDOSCOPY performed by Rico Castro MD at [facility] ENDOSCOPY ??? PRO UPPER GI ENDOSCOPY, DIAGNOSTIC 12/21/2013 EGD, UPPER GI ENDOSCOPY performed by Kenrick Giordano MD at [facility] ENDOSCOPY ??? PRO UPPER GI ENDOSCOPY, DIAGNOSTIC N/A 11/20/2019 EGD, UPPER GI ENDOSCOPY performed by Yoni Tate MD at [facility] ENDOSCOPY ??? UPPER GI ENDOSCOPY, EXAM 09/22/2011 UPPER GI ENDOSCOPY performed by KENRICK GIORDANO at [facility] ENDOSCOPY No current facility-administered medications on file [...] small anterior midline polyp who presents to [facility] for EUA and resection.. Will proceed with planned operation. Ra Willoughby MD 01/30/2020 General Surgery [id number] * Ra Willoughby MD - 01/30/2020 9:48 PM EDT H&P 24hr interval update/Pre-operative note Please see Dr. Silveira's note from clinic for further information. ID: Amalia Moreira is a 69 y.o. female with a hx of small anterior midline polyp who presents to [facility] for EUA and resection. Past Medical History: Diagnosis Date ??? Asthma ??? GERD (gastroesophageal reflux disease) ??? Hypothyroid ??? IBS (irritable bowel syndrome) Past Surgical History: Procedure Laterality Date ??? APPENDECTOMY ??? CHOLECYSTECTOMY ??? HEMICOLECTOMY right ??? HYSTERECTOMY ??? OVARY REMOVAL right ??? PRG UNLISTED DIAGNOSTIC GASTROENTEROLOGY PROCEDURE 12/21/2013 VIDEO CAPSULE ENDOSCOPY performed by Kenrick Giordano MD at [facility] ENDOSCOPY ??? PRO COLONOSCOPY, DIAGNOSTIC 09/22/2011 COLONOSCOPY, DIAGNOSTIC performed by KENRICK GIORDANO at [facility] ENDOSCOPY ??? PRO COLONOSCOPY, DIAGNOSTIC 12/21/2013 COLONOSCOPY, DIAGNOSTIC performed by Kenrick Giordano MD at [facility] ENDOSCOPY ??? PRO COLONOSCOPY, DIAGNOSTIC N/A 11/20/2019 COLONOSCOPY, DIAGNOSTIC performed by Yoni Tate MD at [facility] ENDOSCOPY ??? PRO COLONOSCOPY, REMV LESN, SNARE N/A 11/20/2019 COLONOSCOPY, POLYPECTOMY, REMOVAL LESION BY SNARE (WRVU 4.67) performed by Yoni Tate MD at [facility] ENDOSCOPY ??? PRO UPPER GI ENDOSCOPY, DIAGNOSTIC 11/07/2013 EGD, UPPER GI ENDOSCOPY performed by Rico Castro MD at [facility] ENDOSCOPY ??? PRO UPPER GI ENDOSCOPY, DIAGNOSTIC 12/21/2013 EGD, UPPER GI ENDOSCOPY performed by Kenrick Giordano MD at [facility] ENDOSCOPY ??? PRO UPPER GI ENDOSCOPY, DIAGNOSTIC N/A 11/20/2019 EGD, UPPER GI ENDOSCOPY performed by Yoni Tate MD at [facility] ENDOSCOPY ??? UPPER GI ENDOSCOPY, EXAM 09/22/2011 UPPER GI ENDOSCOPY performed by KENRICK GIORDANO at [facility] ENDOSCOPY No current facility-administered medications on file [...] small anterior midline polyp who presents to [facility] for EUA and resection.. Will proceed with planned operation. Ra Willoughby MD 01/30/2020 General Surgery [id number] documented in this encounter Miscellaneous Notes * Op Note - Randi Silveira MD - 01/31/2020 11:[address] [facility] Operative Note Patient Name: Amalia Moreira : [id number] MR#: [id number] Case Date: 01/31/2020 Surgeon: Surgeon(s) and Role: [...] gross blood. Anoscopy was performed with the medium [place] retractor. Findings include polypoid lesion just proximal [...] good condition. Randi Silveira MD FACS FASCRS card brusher Division of Colon and Rectal Surgery [facility] Pager [phone] Infection Bundle used? N/A Attestation: Case Date: 01/31/2020 I was present and I participated during the entire procedure (does not need to include opening and closing). Randi Silveira MD 01/31/2020 * Brief Op Note - Randi Silveira MD - 01/31/2020 10:32 AM EDT Brief Operative Note Patient Name: Amalia Moreira : [id number] MR#: [id number] Case Date: 01/31/2020 Surgeon: Surgeon(s) and Role: [...] Tumor, Transanal Approach, Not Incl Muscularis Propria ([id number]) Yes 01/31/2020 9:53 AM EDT ANAL POLYP documented in this encounter Results * Surgical Pathology Report (01/31/2020 10:27 AM EDT) Final Diagnosis [id number] ? Location: [facility] The signing pathologist has (i) examined the relevant preparation(s) for the specimen(s) and (ii) rendered or confirmed the diagnosis(es). . ?Surgical Pathology DIAGNOSIS Anterior mid line distal rectum, ?? polypectomy: Tubular adenoma involving squamocolumnar junctional anal mucosa. Resection margins are negative for adenomatous epithelium. Electronically signed by: ??Luisa COLON PhD, Romina Verified: ??02/02/2020 ?Pathologist Performed at: ??-[facility] Dept. of Pathology, [place], [place] SPECIMEN(S) SUBMITTED A - Anterior Midline distal rectal polyp, excision (1) CLINICAL INFORMATION Anal polyp SPECIMEN PROCESSING A - Labeled/Fixative: Anterior mid line distal rectal polyp, fresh. Quantity/Size: Single, 1.9 x 0.9 x 0.5 cm. Tissue Description: banuelos rubbery tissue. Sections/Processi ng: Quadrisected and entirely submitted in 1 cassette labeled A1. ??MV 02/02/2020 1:55 PM EDT [facility] GI Biopsy 01/31/2020 10:2 7 AM EDT 01/31/2020 10:27 AM EDT Randi Silveira MD PATHOLOGY/CYTOLOGY [place] Performing Organization Address [facility] Co de Phone Number [facility] [place] [address] * Specimen to Pathology (01/31/2020 10:27 AM EDT) AP Specimen 01/31/2020 10:2 7 AM EDT 01/31/2020 10:27 AM EDT Narrative [facility] - 01/31/2020 10:27 AM EDT Specimen requisition ordered. ??Separate Pathology report to follow Randi Silveira MD PATHOLOGY/CYTOLOGY [place] Performing Organization Address City/[facility] Co de Phone Number [facility] [place] [address] documented in this encounter Visit Diagnoses Not on filedocumented in this encounter Administered Medications Inactive Administered Medications - up to 3 most recent administrations Medication Order MAR Action Action Date Dose Rate Site acetaminophen (Tylenol) 500 mg tablet 1 dose, Starting on Wed01/31/20 at 0904, Until Wed01/31/20 at 0915, Caitlin Buenrostro: cabinet override Given 01/31/2020 9:15 AM EDT 500 mg BUpivacaine-EPINEPHrine 0.25 %-1:200,000 injection ONCE PRN, Starting on Wed01/31/20 at 1009, Until Wed01/31/20 at 1321, Intra-Operative (Intra-Procedure), Routine Given 01/31/2020 10:15 AM EDT 5 mLs 19- Surgical Site Given 01/31/2020 10:09 AM EDT 10 mLs 1 9- Surgical Site lidocaine (PF) (XYLOCAINE) 10 mg/mL (1 %) injection ONCE PRN, Starting on Wed01/31/20 at 1009, Until Wed01/31/20 at 1321, Intra-Operative (Intra-Procedure), Routine Given 01/31/2020 10:15 AM EDT 5 mLs 19- Surgical Site Given 01/31/2020 10:09 AM EDT 10 mLs 1 9- Surgical Site documented in this encounter Active and Recently [...] Day of Surgery (Day of Procedure) 0954 (New Bag - Prov ider: Nupur Toscano CRNA) PRN Medication Order 01/29/2020 01/30/2020 01/31/2020 BUpivacaine-EPINEPHrine [...] at 0904, Until Wed01/31/20 at 0915, Caitlin Buenrostro.: cabinet override 0915 (Given - Provid er: Pratik Fiore RN) documented in this encounter Care Teams Lepidopterist Relationship Specialty Start Date End Date Rico Aburto MD [address] [place] [address] PCP - General 08/26/11 09/14/21 documented as of this encounter
--- OUTSIDE RECORDS SUMMARY | 2024-01-11 15:27 | XMS_ITS | Encounter Summary ---
[place] [address] Care Team Providers Care Digital Retoucher Name Role Phone Rico Aburto MD Primary Care Provider Reason for Referral * Diagnostic Test (Routine) - Closed Specialty Diagnoses / Procedures Referred By Charan benson Referred To Contact Radiology Diagnoses Abdominal pain, epigastric Procedures MRI Abdomen wwo Contrast (Generic) Rico Aburto MD [address] [place] [address] [place] [address] Referral ID Status Reason Start Date Expiration Date V isits Requested Visits Authorized [id number] Closed Specialty Service Requested 12/25/2019 06/26/2021 1 1 Reason for Visit * Diagnostic Test (Routine) - Closed Specialty Diagnoses / Procedures Referred By Charan benson Referred To Contact Radiology Diagnoses Abdominal pain, epigastric Procedures MRI Abdomen wwo Contrast (Generic) Rico Aburto MD [address] [place] [address] [facility] [place] [address] Referral ID Status Reason Start Date Expiration Date V isits Requested Visits Authorized [id number] Closed Specialty Service Requested 12/25/2019 06/26/2021 1 1 Encounter Details Date Type Department Care Team (Latest Contact Info) Description 12/31/2019 1:51 PM EDT - 12/31/2019 11:59 PM EDT Hospital [place] [address] Rico Aburto MD [address] [place] [address] Abdominal pain, epigastric Discharge Disposition: Home Social History Tobacco Use [...] Procedure Name Priority Date/Time Associated Diagnosis Comments MRI ABDOMEN WWO CONTRAST Routine 12/31/2019 3:11 PM EDT Abdominal pain, epigastric documented in this encounter Results * MRI Abdomen wwo Contrast (Generic) (12/31/2019 3:11 PM EDT) Anatomical Region Laterality Modality Abdomen Magnetic Resonan ce Impressions 01/01/2020 7:07 AM EDT 1. ??3.5 cm cystic lesion in the posterior right upper quadrant, unchanged as compared to November 01, 2019; this has no internal enhancement. ??Differential diagnosis would include loculated ascites, evolutionary changes within a prior urinoma or hematoma, mucinous cystadenoma, cystic lymphangioma, nonpancreatic pseudocyst, amongst others. 2. ??Cavernous transformation of the portal vein. 3. ??Status post cholecystectomy. ??Postcholecystectomy prominence of the common bile duct = 10 mm. 4. ??Persistent 4.3 cm left adnexal cystic lesion. ??Please see prior Ultrasound of the Pelvis dated November 14, 2019. ??Gynecologic surgical consultation is recommended. Thank you for letting us participate in the care of this patient. For questions regarding this report, please contact the number below. ? Electronically signed by: Suresh P Thais, [facility] ([phone]), at 01/01/2020 7:07 AM Narrative 01/01/2020 7:07 AM EDT EXAMINATION: MRI ABDOMEN WWO CONTRAST (GENERIC) CLINICAL HISTORY: 69-year-old female with epigastric and abdominal pain. TECHNIQUE: MRI of the abdomen was performed with images obtained prior to and following the intravenous administration of 19 ml Dotarem (gadolinium). COMPARISON: Comparison is made to MRI of the abdomen dated March 30, 2011. Correlation is made to multiple prior CT of the abdomen and pelvis examinations, the most recent of which is dated November 01, 2019 FINDINGS: Limitations: Respiratory motion artifact mildly limits evaluation on postcontrast imaging. Lower chest: Visualized structures within the inferior thorax are unremarkable. Liver: As noted previously, there is cavernous transformation of the portal vein. Bile ducts: The common bile duct is prominent, measuring up to 10 mm in maximal dimension, but has a similar appearance as compared to the prior CT of the abdomen and pelvis dated November 01, 2019. ??There is no significant intrahepatic biliary ductal dilatation. Gallbladder: The gallbladder is surgically absent. Pancreas: There is mild atrophy of the pancreas with associated fatty replacement. Spleen: Normal. Adrenals: Normal. Kidneys: In the ventral interpolar left kidney, there is a 9 mm T2 hyperintense, T1 hypointense, nonenhancing renal cyst. ??The right kidney images normally. Vasculature: The aorta is normal in course and caliber. ??As noted above, there is cavernous transformation of the portal vein. Lymph nodes: No enlarged lymph nodes. Bowel: There is a small hiatal hernia. ??The stomach is under distended, limiting evaluation. ??The duodenum is normal in course and caliber. ??Visualized aspects of the small and large bowel are otherwise unremarkable. Reproductive Organs: Partially visualized on the coronal images is a T2 hyperintense, 4.3 cm left adnexal cystic lesion with a trace surrounding free pelvic fluid.; ??There is no internal enhancement on postcontrast imaging, however, this is at the edge of the [id number]. ??The 2 daughters cystic lesions as reported on prior sonographic examination are not appreciated on these limited MRI sequences. Peritoneum and mesentery: In the right upper quadrant, along the posterior diaphragmatic insertion, there is a 3.5 x 1.7 cm T2 hyperintense, T1 hypointense, nonenhancing cystic lesion. ??This appears unchanged in size and configuration as compared to November 01, 2019, but has mildly increased in size as compared to March 30, 2017. Marrow Signal: Normal. Procedure Note Suresh Plascencia, DO - 01/01/2020 EXAMINATION: MRI ABDOMEN WWO CONTRAST (GENERIC) CLINICAL HISTORY: 69-year-old female with epigastric and abdominal pain. TECHNIQUE: MRI of the abdomen was performed with images obtained prior toand following the intravenous administration of 19 ml Dotarem (gadolinium). COMPARISON: Comparison is made to MRI of the abdomen dated March. Correlation is made to multiple prior CT of the abdomen and pelvisexaminations, the most recent of which is dated November 01, 2019 FINDINGS: Limitations: Respiratory motion artifact mildly limits evaluation on postcontrast imaging. Lower chest: Visualized structures within the inferior thorax areunremarkable. Liver: As noted previously, there is cavernous transformation of theportal vein. Bile ducts: The common bile duct is prominent, measuring up to 10 mm inmaximal dimension, but has a similar appearance as compared to the prior CT ofthe abdomen and pelvis dated November 01, 2019. There is no significantintrahepatic biliary ductal dilatation. Gallbladder: The gallbladder is surgically absent. Pancreas: There is mild atrophy of the pancreas with associated fatty replacement. Spleen: Normal. Adrenals: Normal. Kidneys: In the ventral interpolar left kidney, there is a 9 mm [id number], T1 hypointense, nonenhancing renal cyst. The right kidney imagesnormally. Vasculature: The aorta is normal in course and caliber. As noted above,there is cavernous transformation of the portal vein. Lymph nodes: No enlarged lymph nodes. Bowel: There is a small hiatal hernia. The stomach is under distended,limiting evaluation. The duodenum is normal in course and caliber. Visualizedaspects of the small and large bowel are otherwise unremarkable. Reproductive Organs: Partially visualized on the coronal images is a T2 hyperintense, 4.3 cm left adnexal cystic lesion with a trace surroundingfree pelvic fluid.; There is no internal enhancement on postcontrastimaging, however, this is at the edge of the [id number]. The 2 daughterscystic lesions as reported on prior sonographic examination are not appreciatedon these limited MRI sequences. Peritoneum and mesentery: In the right upper quadrant, along theposterior diaphragmatic insertion, there is a 3.5 x 1.7 cm T2 hyperintense, T1 hypointense, nonenhancing cystic lesion. This appears unchanged in sizeand configuration as compared to November 01, 2019, but has mildly increased insize as compared to March 30, 2017. Marrow Signal: Normal. IMPRESSION 1. 3.5 cm cystic lesion in the posterior right upper quadrant, unchangedas compared to November 01, 2019; this has no internal enhancement.Differential diagnosis would include loculated ascites, evolutionary changes within aprior urinoma or hematoma, mucinous cystadenoma, cystic lymphangioma,nonpancreatic pseudocyst, amongst others. 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 3. Status post cholecystectomy. Postcholecystectomy prominence of thecommon bile duct = 10 mm. 4. Persistent 4.3 cm left adnexal cystic lesion. Please see priorUltrasound of the Pelvis dated November 14, 2019. Gynecologic surgical consultation is recommended. Thank you for letting us participate in the care of this patient. Forquestions regarding this report, please contact the number below. Electronically signed by: Suresh Plascencia [facility]([phone]), at 01/01/2020 7:07 AM Rico Aburto MD IM MRI ORDERABLES documented in this encounter Visit Diagnoses Diagnosis Abdominal pain, epigastric documented in this encounter Administered Medications Inactive Administered Medications - up to 3 most recent administrations Medication Order MAR Action Action Date Dose Rate Site gadoterate meglumine (DOTAREM) 0.5 mmol/mL (376.9 mg/mL) injection 0.2 mL/kg/dose 0.2 mL/kg/dose, Intravenous, ONCE PRN, 1 dose, Starting on 12/31/19 at 1512, Until 12/31/19 at 1500, Per Protocol, Radiology Contrast, Routine Given 12/31/2019 3:00 PM EDT 19 mLs documented in this encounter Care Teams Digital Retoucher Relationship Specialty Start Date End Date Rico Aburto MD [address] [place] [address] PCP - General 08/26/11 09/14/21 documented as of this encounter
--- OUTSIDE RECORDS SUMMARY | 2024-01-11 15:27 | XMS_ITS | Encounter Summary ---
[place] [address] Care Team Providers Care Inspector Hairspring Truing Name Role Phone Rico Aburto MD Primary Care Provider [phone] Encounter Details Date Type Department Care Team (Late st Contact Info) Description 01/19/2020 Telephone [place] [phone] Randi Silveira MD [facility] [place] [address] Social History Tobacco Use Types Packs/Day Years [...] Telephone Encounter - Randi Silveira MD - 01/19/2020 1:53 PM EDT Called again regarding procedure scheduling. Left a voice message letting her know that our OR schedulers would be calling Randi Silveira MD FACS [employer] database operator Division of Colon and Rectal Surgery [facility] Pager [phone] documented in this encounter Plan of Treatment Scheduled Procedures Name Priority Associated Diagnoses Date/Ti me EGD, UPPER GI ENDOSCOPY (WRV U 2.09) Esophageal varices without bleeding, unspecified esophageal varices type Portal vein thrombosis documented as of this encounter Visit Diagnoses Not on filedocumented in this encounter Care Teams Inspector Hairspring Truing Relationship Specialty Start Date End Date Rico Aburto MD [address] [place] [address] PCP - General 08/26/11 09/14/21 documented as of this encounter
--- OUTSIDE RECORDS SUMMARY | 2024-01-11 15:27 | XMS_ITS | Encounter Summary ---
Author Organization [facility] [place] [address] Care Team Providers Care Spray Maker Name Role Phone Jyotsna Blackbrittani Campbell APRN Primary Care Provider [phone] Encounter Details Date Type Department Care Team (Late st Contact Info) Description 12/02/2021 Orders [place] [id number] Yoni Tate MD [facility] [place] [address] Esophageal varices without bleeding, unspecified esophageal varices [...] without bleeding, unspecified esophageal varices type Ordered: 12/02/2021 Scheduled Procedures Name Priority Associated Diagnoses Date/Ti me EGD, UPPER GI ENDOSCOPY (WRV U 2.09) Esophageal varices without bleeding, unspecified esophageal varices type Portal vein thrombosis documented as of this encounter Visit Diagnoses Diagnosis Esophageal varices without bleeding, unspecified esophageal varices type documented in this encounter Care Teams Spray Maker Relationship Specialty Start Date End Date Jacinta Black, SENG [address] [place] [address] PCP - General Family Medicine 09/15/21 documented as of this encounter
--- OUTSIDE RECORDS SUMMARY | 2024-01-11 15:27 | XMS_ITS | Encounter Summary ---
[place] [address] Care Team Providers Care Family Dentist Name Role Phone Rico Aburto MD Primary Care Provider [phone] Encounter Details Date Type Department Care Team (Late st Contact Info) Description 02/05/2020 Telephone [place] [phone] Randi Silveira MD [facility] [place] [address] Social History Tobacco Use Types Packs/Day Years [...] Telephone Encounter - Randi Silveira MD - 02/05/2020 2:25 PM EDT Calling to check in with Ms. Moreira after her procedure. Left her a message to call my office or I will call back tomorrow. Randi Silveira MD FACS [employer] home aid Division of Colon and Rectal Surgery [facility] Pager [phone] documented in this encounter Plan of Treatment Scheduled Procedures Name Priority Associated Diagnoses Date/Ti me EGD, UPPER GI ENDOSCOPY (WRV U 2.09) Esophageal varices without bleeding, unspecified esophageal varices type Portal vein thrombosis documented as of this encounter Visit Diagnoses Not on filedocumented in this encounter Care Teams Family Dentist Relationship Specialty Start Date End Date Rico Aburto MD [address] [place] [address] PCP - General 08/26/11 09/14/21 documented as of this encounter
--- OUTSIDE RECORDS SUMMARY | 2024-01-11 15:27 | XMS_ITS | Encounter Summary ---
Author Organization [facility] [place] [address] Care Team Providers Care Assistant Refinery Operator Name Role Phone Jacinta Black APRN Primary Care Provider [phone] Reason for Visit * Reason Comments Annual Exam * Consultation (Routine) - Closed Specialty Diagnoses / Procedures Referred By Charan benson Referred To Contact Obstetrics and Gynecology Diagnoses Abdominal mass, unspecified abdominal location Chronic abdominal pain Ovarian mass Jacinta Black APRN [address] [place] [address] [facility] [employer] [address] [place] [address] Referral ID Status Reason Start Date Expiration Date V isits Requested Visits Authorized [id number] Closed Consult, Test & Treat PCP Updated and/or Approved 09/15/2021 09/15/2022 6 6 Encounter Details Date Type Department Care Team (Late st Contact Info) Description 10/15/2021 2:20 PM EDT Office Visit Obstetrics [place] [address] Nenita Martinez MD [facility] [address] OBSTETRICS [place] [address] Simple ovarian cyst; Elevated cancer antigen 125 [...] Sign Reading Time Taken Comments Blood Pressure 132/67 10/15/2021 2:20 PM EDT Pulse 75 10/15/2021 2:20 PM EDT Temperature 37.1 ??C (98.7 ??F) 10/15/2021 2:20 PM ED T Respiratory Rate - - Oxygen Saturation 98% 10/15/2021 2:20 PM EDT Inhaled Oxygen Concentration - - Weight 78.8 kg (173 lb 12.8 oz) 10/15/2021 2:20 PM EDT Height - - Body Mass Index 31.79 01/31/2020 9:13 AM EDT documented in this encounter Progress Notes * Nenita Martinez MD - 10/15/2021 2:20 PM EDT Images from the original note were not included. New Patient visit- imaging follow up Reason for visit: Amalia Moreira is being seen in the clinic today at the request of Jacinta Black APRN for the ongoing evaluation of a known left adnexal mass, likely left ovarian cyst. History of Present Illness: Amalia Moreira is a 71 y.o. female para 2 with a PMH significant for mesenteric vein thrombosis, numerous abdominal surgeries (hysterectomy and right salpingo- oophorectomy, cholecystectomy, partial colectomy), hypothyroidism who presents today for surveillance of a pelvic mass. This was initially discovered after an episode of abdominal pain that brought her to the [facility] ED. She had a CT scan of her abdomen, which showed a new right upper quadrant mass concerning for malignancy, as well as a left adnexal cystic structure. She was then transferred to [facility] for a TVUS. However, after evaluation here, the imaging was scheduled in a nonemergently as an outpatient due to her clinical stability. She was evaluated by Surgical Oncology at [facility] who reviewed her imaging. Per Dr. Mcmahon's note, In review of imaging, the retroperitoneal mass has been present at least since 2011 and possible 2010. It remains relatively stable in size and benign on appearance. We discussed options of observing vs. obtaining biopsy. Given the lesion adjacent to pleura, higher risk of PTx Pelvic lesion is less cl ear and I agree that transvaginal ultrasound and possible referral to top lifter-onc may be warranted. The plan was to follow up every 6 months to observe that lesion, which she continues to do. Of note, Amalia also underwent an EGD and colonoscopy for her abdominal pain and nausea. Polyps wereremoved and pathology confirmed multiple tubular adenomas. 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 She lives in [place] half the year, so her medical care is somewhat split [place] two [place]. She saw Dr. Motley (Mobile Service Rv Technician Onc) in November 2019 and was not felt to need surgical intervention due to the low malignant potential of this mass. She had follow up US on 02/2020 and he gave her the option of ongoing surveillance via TVUS or surgery with him, and she opted for surveillance. Her last imaging was September [address] A/P which Ms. Black ordered at [facility]. ROS: She denies any urinary symptoms, vaginal cuff bleeding or discharge. She denies any change in her abdominal pain since her last visit with Dr. Motley 11/2019. Her pain was always in the RUQ. Medical History: 1. Asthma 2. GERD 3. Hypothyroidism 4. IBS 5. CABRERA Surgical History: 1. Appendectomy, laparoscopic after ruptured appendix, 2010 2. CCY, laparoscopic 3. Right Hemicolectomy, from severe pain, 2010 4. Right oophorectomy and hysterectomy, vaginal, 1983 for AUB 5. EGD, multiple 6. Colonoscopies, multiple 7. Clare teeth removal Medications: 1. Tramadol, PRN 2. Ibuprofen 3. Zofran 4. Synthroid, 100 mcg 5. Prilosec 6. Dulera and albuterol inhalers Allergies: 1.Percocet (dizzy) 2. House dust 3. Prednisone (nausea) Obstetric History: , x2 Gynecologic History/Health Maintenance: Menarche at age 11. Menopause at age 34. Denies control use or HRT use. No Recent postmenopausal bleeding/spotting. Currently sexually active. Denies STDs. Has had regular Pap smear screening and has one abnormal pap, with a cervical biopsy and colposcopydone. Biopsy results were wnl. Mammograms are up to date and are wnl per the patient. Annual Last colonoscopy = 2019, removal of multiple tubular adenomas Family History: Pancreatic:none Colon:none Gastric:none Prostate: none Ovarian:none Endometrial:none Breast: Sister, early 40s Melanoma: none Social History: Lives in [place], [place]. 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 Lives in a home, able to complete her daily tasks without issue. Tobacco history: None Alcohol history: Denies use of alcohol or previous problems with same. Drug use: Denies Herbal/alternative therapies: Denies Physical Exam: Vitals: 10/15/21 1420 BP: 132/67 BP Location (NBP): Right arm Patient Position: Sitting Pulse: 75 Temp: 37.1 ??C (98.7 ??F) TempSrc: Temporal SpO2: 98% Weight: 78.8 kg (173 lb 12.8 oz) Body mass index is 31.79 kg/m??. Body surface area is 1.86 meters squared. General: No apparent distress, resting comfortably HEENT: EOMI, no icterus, no palpable supracervical lymph nodes, cataract lenses present, normal hair distribution. Heart: regular rate and rhythm, no murmurs/rubs/gallops Lungs: clear to ascultation bilaterally, no wheezes/rhonchi/crackles Pelvic Examination: Deferred as no new symptoms GOG Performance Status: 0 Pertinent Radiographic/Diagnostic Results: CT at [facility] Abdomen/Pelvis 11/03/[address] for Comparison Colonoscopy 11/20/2019 TVUS 11/15/2019 1. Complex 5 cm left [...] follicle seen. 2. Free fluid is seen. Most recent CT in Care Everywhere 09/2021: Impression 1. [...] 20% anterior height loss, new since 2019. Diagnostic Tests: Lab Results Component Value Date CA125 65.4 (H) 11/27/2019 09/12/21: CA 125 <30 U/mL 26 Impression/Plan: Amalia Moreira is a 71 y.o.P2 here to discuss surveillance of her incidental finding of a L ovarian cyst found on CT imaging in 2019. I reviewed her CT imaging and ultrasound findings from 2019 and compared them to 2021. This lesion has remained stable over the last two years. I reviewed this with the patient and her and offered reassurance. Her imaging has been reviewed by a Mobile Service Rv Technician Oncologist as well who did not note concerning features. This incidental finding is not likely to be the cause of any pain or symptoms, given it's small size. Surgical management has increased risks in the setting of her extensive history of abdominal surgeries, including anesthesia risks, damage to surrounding structures, etc, and would unlikely to offer any benefit. Her CA 125 has gone down since it was last measured in 2019, which is also very reassu ring. We therefore recommend expectant management with a TVUS follow up and CA 125 in one year at [facility]. Would not recommend CT scans in the future for evaluation of this mass, as it is best characterizedby ultrasound and spares Ms. Moreira additional radiation exposure. Nenita Martinez MD Ob-Mobile Service Rv Technician PGY-4 [phone] * Rico Briseno MD - 10/15/2021 2:20 PM EDT The case was discussed at the time of the visit with Dr. Martinez. I have reviewed the history, physical exam, assessment and plan and I agree with them as documented. Rico Briseno MD 10/24/2021 12:40 PM documented in this encounter Plan of Treatment Scheduled Procedures Name Priority Associated Diagnoses Date/Ti me EGD, UPPER GI ENDOSCOPY (WRV U 2.09) Esophageal varices without bleeding, unspecified esophageal varices type Portal vein thrombosis documented as of this encounter Results * (ABNORMAL) Cancer Antigen 125 (02/17/2023 11:08 AM EDT) CA 125 43.1(H) <=38.1 unit/mL [facility] Comment: CA 125 Reference Interval ??Postmenopausal: [...] In Lab Rico Briseno MD CHEMISTRY ORDERABLES [facility] [place] [address] * US Transvaginal Non OB (02/17/2023 8:03 [...] cystadenoma. Electronically signed by: Kenrick Foley MD, [facility] ([phone]), at 02/17/2023 8:32 AM Thank you for letting us participate in the care of this patient. If you are a health care provider and have any questions regarding this report, please contact the number above. For patients who have questions, please contact the health respiratory care faculty that requested your imaging first. ?Kenrick Foley, Staff Physician Electronically Signed Final Report ?? 02/17/2023 08:39 am Narrative 02/17/2023 8:39 AM EDT Gynecological Report ?(Signed Final 02/17/2023 08:39 am) PATIENT INFO: ID #: ? [id number] ?: ??[birth year] (72 yrs)(F) Name: ? AMALIA MOREIRA ?Visit Date: 02/17/2023 07:42 am PERFORMED BY: Attending: ?Og COLON, Kenrick Coon Performed By: ? Tati Iyer RDMS Referred By: ?RICO BRISENO Location: ? [facility] PROVIDED: UTV - Transvaginal - [id number] ?[id number] INDICATIONS: simple ovarian cyst, repeat imaging in [...] 02/17/2023 08:39 am) PATIENT INFO: ID #: [id number] : [birth year] (72 yrs)(F) Name: AMALIA MOREIRA Visit Date: 02/17/2023 07:42 am PERFORMED BY: Attending: Kenrick Foley MD Performed By: Tati Iyer RDMS Referred By: RICO BRISENO Location: [facility] PROVIDED: UTV - Transvaginal - [id number] INDICATIONS: simple ovarian cyst, repeat imaging in [...] cystadenoma. Electronically signed by: Kenrick Foley MD, [facility] ([phone]), at 02/17/2023 8:32 AM Thank you for letting us participate in the care of this patient. If you are a health care provider and have any questions regarding this report, please contact the number above. For patients who have questions, please contact the health respiratory care faculty that requested your imaging first. Kenrick Foley, Staff Physician Electronically Signed Final Report 02/17/2023 08:39 am Rico Briseno MD IM US PELVIC ORDERA BLES documented in this encounter Visit Diagnoses Diagnosis Simple ovarian cyst Other and unspecified ovarian cyst Elevated cancer antigen 125 (CA 125) Elevated cancer antigen 125 [CA 125] Simple ovarian cyst Other and unspecified ovarian cyst documented in this encounter Care Teams Assistant Refinery Operator Relationship Specialty Start Date End Date Jacinta Black APRN [address] [place] [address] PCP - General Family Medicine 09/15/21 documented as of this encounter
--- OUTSIDE RECORDS SUMMARY | 2024-01-11 15:27 | XMS_ITS | Encounter Summary ---
Author Organization [facility] [place] [address] Care Team Providers Care Horticultural Therapist Name Role Phone Jacinta Black APRN Primary Care Provider [phone] Encounter Details Date Type Department Care Team (Late st Contact Info) Description 12/02/2021 Orders [place] [id number] Yoni Tate MD [facility] [place] [address] Social History Tobacco Use Types Packs/Day Years [...] on filedocumented in this encounter Care Teams Horticultural Therapist Relationship Specialty Start Date End Date Jacinta Black APRN [address] [place] [address] PCP - General Family Medicine 09/15/21 documented as of this encounter
--- OUTSIDE RECORDS SUMMARY | 2024-01-11 15:27 | XMS_ITS | Encounter Summary ---
[place] [address] Care Team Providers Care Detective Investigator Name Role Phone Shobha Blackyn Shannan SENG Primary Care Provider [phone] Encounter Details Date Type Department Care Team (Late st Contact Info) Description 12/22/2021 9:45 AM EDT - 12/22/2021 10:15 AM EDT [place] [address] Yoni Tate MD [facility] [place] [address] EGD, W BAND LIGATION OF ESOPHAGEAL/GASTRIC VARICES (WRVU 4.4) Social History Tobacco Use Types Packs/Day Years [...] Sign Reading Time Taken Comments Blood Pressure 142/68 12/22/2021 10:10 AM EDT Pulse 67 12/22/2021 8:58 AM EDT Temperature 36.6 ??C (97.9 ??F) 12/22/2021 8:58 AM ED T Respiratory Rate 16 12/22/2021 10:10 AM EDT Oxygen Saturation 97% 12/22/2021 10:10 AM EDT Inhaled Oxygen Concentration - - [...] the day after the procedure, use an tiol-het-xvmxrfi spray to numb your throat. Sucking on [...] occurs, please contact your Doctor. Please call [phone] before 8pm Mon-Fri with problems, questions or concerns. If you call after 8pm or on weekends, call the Hospital at [phone] and ask to speak to the Bridge [employer]er medical numerical control operator and the paint booth operator will contact that person for you. When should you call for help? Call [phone] anytime you think you may need emergency [...] any problems. Where can you learn more? [facility] View your After Visit Summary and more online at [email or web address] If you would like to [...] cost to you. Content Version: 12.2 ?? [id number] [employer]. Care instructions adapted under license by [facility]. If you have questions about a medical condition or this instruction, always ask your healthcare professional. [employer] disclaims any warranty or liability for your [...] mouth daily. fluticasone propionate (Flonase) 50 mcg/actuation [place], Suspension 1 spray daily. hypromellose (SYSTANE GEL [...] Operative Note Patient Name: Amalia Moreira : [id number] MR#: [id number] Case Date: 12/22/2021 Surgeon: Surgeon(s) and Role: [...] Diagnosis Comments Upper Gi Endoscopy, Ligat Varix (78245) 12/22/2021 9:19 AM EDT Esophageal varices without bleeding, unspecified esophageal varices type UPPER GI ENDOSCOPY Routine 12/22/2021 8: 59 AM EDT documented in this encounter Results * UPPER GI ENDOSCOPY (12/22/2021 8:59 AM EDT) UPPER GI ENDOSCOPY [facility] Endoscopy ___ Procedure Date: 12/22/2021 8:59 AM ? Patient Name: Amalia Moreira ? Date of : 1950 ? Age: 71 ? Order #: [id number] ? Instrument Name: [id number] ? ___ Procedure: ? Upper GI endoscopy Indications: ? Follow-up of esophageal varices Providers: ? Yoni Tate, Michael Pate, ? NEL, Bekah Flores Referring MD: ? Medicines: ? Propofol per Anesthesia Complications: [...] CRNA) documented in this encounter Care Teams Detective Investigator Relationship Specialty Start Date End Date Jacinta Black APRN [address] [place] [address] PCP - General Family Medicine 09/15/21 documented as of this encounter
--- OUTSIDE RECORDS SUMMARY | 2024-01-11 15:27 | XMS_ITS | Encounter Summary ---
[place] [address] Care Team Providers Care Can Top Setter Name Role Phone Rico Aburto MD Primary Care Provider [phone] Encounter Details Date Type Department Care Team (Late st Contact Info) Description 01/11/2020 Telephone [place] [phone] Randi Silveira MD [facility] [place] [address] Social History Tobacco Use Types Packs/Day Years [...] Telephone Encounter - Randi Silveira MD - 01/11/2020 1:27 PM EDT Called to discuss OR procedure with Amalia. No answer. Left a message with our office number to callback. Randi Silveira MD FACS shipping assistant Division of Colon and Rectal Surgery [facility] Pager [phone] documented in this encounter Plan of Treatment Scheduled Procedures Name Priority Associated Diagnoses Date/Ti me EGD, UPPER GI ENDOSCOPY (WRV U 2.09) Esophageal varices without bleeding, unspecified esophageal varices type Portal vein thrombosis documented as of this encounter Visit Diagnoses Not on filedocumented in this encounter Care Teams Can Top Setter Relationship Specialty Start Date End Date Rico Aburto MD [address] [place] [address] PCP - General 08/26/11 09/14/21 documented as of this encounter
--- OUTSIDE RECORDS SUMMARY | 2024-01-11 15:27 | XMS_ITS | Encounter Summary ---
Author Organization [facility] [place] [address] Care Team Providers Care Polishing Machine Operator Helper Name Role Phone Rico Aburto MD Primary Care Provider [phone] Reason for Visit * Auth/Cert Specialty Diagnoses / Procedures Referred By Contac t Referred To Contact Diagnoses Encounter for screening for malignant neoplasm of colon Encounter for screening for malignant neoplasm of colon - Encounter for general adult medical examination without abnormal findings Procedures PRO UPPER GI ENDOSCOPY, DIAGNOSTIC PRO COLONOSCOPY, DIAGNOSTIC EGD, UPPER GI ENDOSCOPY COLONOSCOPY, DIAGNOSTIC Referral ID Status Reason Start Date Expiration Date Visits Re quested Visits Authorized [id number] 1 1 Encounter Details Date Type Department Care Team (Late st Contact Info) Description 11/20/2019 4:00 PM EDT - 11/20/2019 5:15 PM EDT [place] [address] Yoni Tate MD [facility] [place] [address] EGD, UPPER GI ENDOSCOPY (WRVU 2.09) Social [...] Sign Reading Time Taken Comments Blood Pressure 118/76 11/20/2019 5:15 PM EDT Pulse 71 11/20/2019 4:35 PM EDT Temperature 36.9 ??C (98.4 ??F) 11/20/2019 3:12 PM ED T Respiratory Rate 18 11/20/2019 5:15 PM EDT Oxygen Saturation 95% 11/20/2019 5:15 PM EDT Inhaled Oxygen Concentration - - Weight 89.8 kg (198 lb) 11/20/2019 3:12 PM EDT Height 157.5 cm (5' 2) 11/20/2019 3:12 PM EDT Body Mass Index 36.21 11/20/2019 3:12 PM EDT documented in this encounter Discharge Instructions * Attachments The following attachments cannot be sent through Care Everywhere. * EGD (Upper Endoscopy): Post-op ([place]or[place]) * Colonoscopy: Post-op ([place]) documented in this encounter Medications at Time [...] into the lungs daily. Use with spacer traMADoL (Ultram) 50 mg Tablet TAKE 1 TO 2 TABLETS BY MOUTH TWICE DAILY NEEDED FOR PAIN 11/03/2019 12/02/2021 MOMETASONE FUROATE (NASONEX NASL) by Nasal route. 11/27/2019 levothyroxine (SYNTHROID) 25 mcg tablet Take 100 mcg by mouth daily. 10/15/2021 omeprazole (PRILOSEC) 10 mg capsule Take 10 mg by mouth daily. 10/15/2021 documented as of this encounter H&P Notes * Evaristo Abarca - 11/20/2019 3:33 PM EDT Gastroenterology and Hepatology Pre-Procedure History and Physical Exam Procedure: EGD: & Colonoscopy Indication: Screening colonoscopy. Upper endoscopy for abdominal pain and nausea. Patient Active Problem List Diagnosis Code ??? Abdominal pain R10.9 ??? Hypothyroid E03.9 ??? 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 Hallucination, drug-induced F19.951 ??? Abdominal pain, right upper quadrant R10.11 EXAM: HEENT: Airway examined, oropharynx clear Mallampati Score: II (soft palate, uvula, fauces visible) LUNGS: Clear to auscultation HEART: Regular rate and rhythm, normal S1, S2 ABDOMEN: Normal bowel sounds, soft, non tender, non distended A/P Proceed with the planned endoscopic procedure. ASA 3 - Patient with moderate systemic disease with functional limitations Sedation Plan: moderate (conscious sedation) Risks and benefits of the procedure explained to the patient. Consent signed. Please see separate consult note for further details. documented in this encounter Miscellaneous Notes * Op Note - Yoni Tate MD - 11/20/2019 4:50 PM EDT [facility] Operative Note Patient Name: Amalia Moreira : [id number] MR#: [id number] Case Date: 11/20/2019 Surgeon: Surgeon(s) and Role: * Yoni Tate MD - Primary Preoperative diagnosis: Encounter for screening for malignant neoplasm of colon - Encounter for general adult medical examination without abnormal findings Postoperative diagnosis: * No post-op diagnosis entered * Procedure(s): EGD, UPPER GI ENDOSCOPY COLONOSCOPY, DIAGNOSTIC COLONOSCOPY, POLYPECTOMY, REMOVAL LESION BY SNARE (WRVU 4.67) Please see Provation report for details. documented in this encounter Plan of Treatment Scheduled Procedures Name Priority Associated Diagnoses Date/Ti me EGD, UPPER GI ENDOSCOPY (WRV U 2.09) Esophageal varices without bleeding, unspecified esophageal varices type Portal vein thrombosis documented as of this encounter Procedures Procedure Name Priority Date/Time Associated Diagnosis Comments SPECIMEN TO PATHOLOGY Routine 11/20/2019 4:33 PM EDT SPECIMEN TO PATHOLOGY Routine 11/20/2019 4:33 PM EDT SPECIMEN TO PATHOLOGY Routine 11/20/2019 4:33 PM EDT SURGICAL PATHOLOGY REPORT Routine 11/20/2019 4:23 PM EDT Colonoscopy, Remv Patricion, Snare ([id number]) 11/20/2019 3:45 PM EDT Encounter for screening for malignant neoplasm of colon - Encounter for general adult medical examination without abnormal findings Colonoscopy, Diagnostic ([id number]) 11/20/2019 3:45 PM EDT Encounter for screening for malignant neoplasm of colon - Encounter for general adult medical examination without abnormal findings Upper GI Endoscopy, Diagnostic ([id number]) 11/20/2019 3:45 PM EDT Encounter for screening for malignant neoplasm of colon - Encounter for general adult medical examination without abnormal findings UPPER GI ENDOSCOPY Routine 11/20/2019 3: 28 PM EDT COLONOSCOPY Routine 11/20/2019 3:26 PM EDT documented in this encounter Results * Specimen to Pathology (11/20/2019 4:33 PM EDT) AP Specimen 11/20/2019 4:33 PM EDT 11/20/2019 4:33 PM EDT Narrative [facility] - 11/20/2019 4:33 PM EDT Specimen requisition ordered. ??Separate Pathology report to follow Yoni Tate MD PATHOLOGY/CYTOLOGY O RDERABLES [facility] [place] [address] * Specimen to Pathology (11/20/2019 4:33 PM EDT) AP Specimen 11/20/2019 4:33 PM EDT 11/20/2019 4:33 PM EDT Narrative [facility] - 11/20/2019 4:33 PM EDT Specimen requisition ordered. ??Separate Pathology report to follow Yoni Tate MD PATHOLOGY/CYTOLOGY O [place] Performing Organization Address [facility] [place] [address] * Specimen to Pathology (11/20/2019 4:33 PM EDT) AP Specimen 11/20/2019 4:33 PM EDT 11/20/2019 4:33 PM EDT Narrative [facility] - 11/20/2019 4:33 PM EDT Specimen requisition ordered. ??Separate Pathology report to follow Yoni Tate MD PATHOLOGY/CYTOLOGY O [place] Performing Organization Address [facility] [place] [address] * Surgical Pathology Report (11/20/2019 4:23 PM EDT) Pathologist [facility] Final Diagnosis [id number] ? Location: 4T; EA08; A The signing pathologist has (i) examined the relevant preparation(s) for the specimen(s) and (ii) rendered or confirmed the diagnosis(es). . ?Surgical Pathology DIAGNOSIS A - Transverse colon, ?? polypectomy: Tubular adenoma. Sessile serrated adenoma/polyp. B - Descending colon, ?? polypectomy: Tubular adenoma. C - Anal rectal verge, biopsy: Tubular adenoma. Electronically signed by: ??Grant Rucker MD Verified: ??11/24/2019 ?Pathologist Performed at: ??-[facility] Dept. of Pathology, [place], [place] SPECIMEN(S) SUBMITTED A - transverse colon polyp, resection (2) B - descending colon polyp, resection (1) C - anal rectal verge bx, biopsy (1) CLINICAL INFORMATION 69-year-old female with abdominal pain and nausea SPECIMEN PROCESSING A - Labeled/Fixativ e: Transverse colon polyp, formalin. Quantity/Size: Multiple, ranging 0.2 0.7 cm. Tissue Description: Soft, banuelos-pink tissue with yellow-green and red-brown debris tissues. Sections/Proces sing: Submitted en toto ??in 2 cassettes labeled A1-A2. B - Labeled/Fixativ e: Descending colon polyp, formalin. Quantity/Size: Two, ranging 0.3-0.4 cm. Tissue Description: Soft, pink tissues. Sections/Proces sing: Submitted en toto ??in 1 cassette labeled B1. C - Labeled/Fixativ e: Anal rectal verge BX, formalin. Quantity/Size: Two, eight ranging less than 0.1-1.0 cm. Tissue Description: Soft, pink-red tissues. Sections/Proces sing: Submitted en toto ??in 1 cassette labeled C1. ??MLL 11/24/2019 7:15 AM EDT [facility] GI Biopsy 11/20/2019 4:23 PM EDT 11/20/2019 4:23 PM EDT GI Biopsy 11/20/2019 4:23 PM EDT 11/20/2019 4:23 PM EDT GI Biopsy 11/20/2019 4:23 PM EDT 11/20/2019 4:23 PM EDT Yoni Tate MD PATHOLOGY/CYTOLOGY O RDERABLES [facility] [place] [address] * UPPER GI ENDOSCOPY (11/20/2019 3:28 PM EDT) UPPER GI ENDOSCOPY [facility] Endoscopy ___ Procedure Date: 11/20/2019 3:28 PM ? Patient Name: Amalai Moreira ? Date of : 1950 ? Age: 69 ? Order #: [id number] ? Instrument Name: [id number] ? ___ Procedure: ? Upper GI endoscopy Indications: ? Weight loss Providers: ? Evaristo Pakrer ? Magaly Abarca, RN, Jossue ? Tu[place]uan Referring MD: ? Medicines: ? Fentanyl 150 micrograms IV, Midazolam ? 4 mg IV, Diphenhydramine 25 mg IV Complications: ? No immediate complications. ___ Procedure: ? Pre-Anesthesia Assessment: ? - Prior to the procedure, a History ? and Physical was performed, and ? patient medications and allergies ? were reviewed. The patient is ? competent. The risks and benefits of ? the procedure and the sedation ? options and risks were discussed with ? the patient. All questions were ? answered and informed consent was ? obtained. Patient identification and ? proposed procedure were verified by ? the physician in the pre-procedure ? area. Mental Status Examination: ? alert and oriented. Airway ? Examination: normal oropharyngeal ? airway and neck mobility. Respiratory ? Examination: clear to auscultation. ? CV Examination: normal. Prophylactic ? Antibiotics: The patient does not ? require prophylactic antibiotics. ? Prior Anticoagulants: The patient has ? taken no previous anticoagulant or ? antiplatelet agents. ASA Grade ? Assessment: III - A patient with ? severe systemic disease. After ? reviewing the risks and benefits, the ? patient was deemed in satisfactory ? condition to undergo the procedure. ? The anesthesia plan was to use ? moderate sedation / analgesia ? (conscious sedation). Immediately ? prior to administration of ? medications, the patient was ? re-assessed for adequacy to receive ? sedatives. The heart rate, ? respiratory rate, oxygen saturations, ? blood pressure, adequacy of pulmonary ? ventilation, and response to care ? were monitored throughout the ? procedure. The physical status of the ? patient was re-assessed after the ? procedure. ? The procedure, indications, benefits, ? risks and alternatives were explained ? to the patient. Specifically ? discussed were potential ? complications including, but not ? limited to, bleeding, perforation, ? infection, missing a cancer, and ? adverse medication reactions. The ? Endoscope was introduced through the ? mouth, and advanced to the second ? part of duodenum. The patient ? tolerated the procedure well. The ? patient tolerated the procedure well. ? Findings: ? Esophagogastric landmarks were identified: the Z-line ? was found at 36 cm, the gastroesophageal junction was ? found at 36 cm and the site of hiatal narrowing was ? found at 38 cm from the incisors. ? A 2 cm hiatal hernia was present. ? A mild Schatzki ring was found at the ? gastroesophageal junction. ? Small (< 5 mm) varices were found in the distal ? esophagus. ? The entire examined stomach was normal. ? The examined duodenum was normal. ? Moderate Sedation: ? Moderate (conscious) sedation was administered by the ? endoscopy nurse and supervised by the endoscopist. ? The following parameters were monitored: oxygen ? saturation, heart rate, blood pressure, and response ? to care. Impression: ?- Esophagogastric landmarks ? identified. ? - 2 cm hiatal hernia. ? - Mild Schatzki ring. ? - Small (< 5 mm) esophageal varices. ? - Normal stomach. ? - Normal examined duodenum. ? - No specimens collected. Recommendation: ?- Perform a colonoscopy. ? - Workup suspected portal hypertension ? Attending Participation: ? I was present and participated during the entire ? procedure, including non-ventura portions. ? Yoni Tate, 11/20/2019 4:09:07 PM Number of Addenda: 0 Note Initiated On: 11/20/2019 3:28 PM [facility] 11/20/2019 3:28 PM EDT Unknown GENERAL SURGICAL ORD ERABLES [facility] * COLONOSCOPY (11/20/2019 3:26 PM EDT) COLONOSCOPY [facility] Endoscopy Procedure Date: 11/20/2019 3:26 PM ? Patient Name: Amalia Moreira ? Date of : 1950 ? Age: 69 ? Order #: [id number] ? Instrument Name: [id number] ? Procedure: ? Colonoscopy Indications: ? Weight loss Providers: ? Magaly Parker, ? NEL, Evaristo Bowling ? Abarca Referring MD: ? Medicines: ? Fentanyl 50 micrograms IV, Midazolam ? 1 mg IV Complications: ? No immediate complications. Procedure: ? Pre-Anesthesia Assessment: ? - Prior to the procedure, a History ? and Physical was performed, and ? patient medications and allergies ? were reviewed. The patient is ? competent. The risks and benefits of ? the procedure and the sedation ? options and risks were discussed with ? the patient. All questions were ? answered and informed consent was ? obtained. Patient identification and ? proposed procedure were verified by ? the physician in the pre-procedure ? area. Mental Status Examination: ? alert and oriented. Airway ? Examination: normal oropharyngeal ? airway and neck mobility. Respiratory ? Examination: clear to auscultation. ? CV Examination: normal. Prophylactic ? Antibiotics: The patient does not ? require prophylactic antibiotics. ? Prior Anticoagulants: The patient has ? taken no previous anticoagulant or ? antiplatelet agents. ASA Grade ? Assessment: III - A patient with ? severe systemic disease. After ? reviewing the risks and benefits, the ? patient was deemed in satisfactory ? condition to undergo the procedure. ? The anesthesia plan was to use ? moderate sedation / analgesia ? (conscious sedation). Immediately ? prior to administration of ? medications, the patient was ? re-assessed for adequacy to receive ? sedatives. The heart rate, ? respiratory rate, oxygen saturations, ? blood pressure, adequacy of pulmonary ? ventilation, and response to care ? were monitored throughout the ? procedure. The physical status of the ? patient was re-assessed after the ? procedure. ? The procedure, indications, benefits, ? risks and alternatives were explained ? to the patient. Specifically ? discussed were potential ? complications including, but not ? limited to, bleeding, perforation, ? infection, missing a cancer, and ? adverse medication reactions. The ? patient was placed in the left ? lateral decubitus position, and a ? digital rectal exam was performed. ? The Colonoscope was inserted in the ? anus and under direct visualization, ? advanced to the terminal ileum. ? Careful inspection was made as the ? colonoscope was withdrawn. The ? patient tolerated the procedure well. ? The quality of the bowel preparation ? was good. ? Findings: ? The car-terminal ileum appeared normal. ? There was evidence of a prior end-to-side ? ileo-colonic anastomosis in the transverse colon. ? This was patent and was characterized by healthy ? appearing mucosa. ? Two sessile polyps were found in the transverse ? colon. The polyps were 4 to 5 mm in size. These ? polyps were removed with a cold snare. Resection and ? retrieval were complete. ? A 5 mm polyp was found in the descending colon. The ? polyp was sessile. The polyp was removed with a cold ? snare. Resection and retrieval were complete. ? A 4 mm polyp was found at the anorectal juction. ? Biopsies were taken with a cold forceps for ? histology. This caused discomfort ? Moderate Sedation: ? Moderate (conscious) sedation was administered by the ? endoscopy nurse and supervised by the endoscopist. ? The following parameters were monitored: oxygen ? saturation, heart rate, blood pressure, and response ? to care. Impression: ?- The examined portion of the ileum ? was normal. ? - Patent end-to-side ileo-colonic ? anastomosis, characterized by healthy ? appearing mucosa. ? - Two 4 to 5 mm polyps in the ? transverse colon, removed with a cold ? snare. Resected and retrieved. ? - One 5 mm polyp in the descending ? colon, removed with a cold snare. ? Resected and retrieved. ? - One 4 mm polyp at the anorectal ? junction. Biopsied. Recommendation: ?- Discharge patient to home. ? - Resume previous diet. ? - Await pathology results. ? - Repeat colonoscopy in 3 years for ? surveillance based on pathology ? results. ? - Referral to coloretcal surgery if ? anorectal polyp is neoplastic. ? Attending Participation: ? I was present and participated during the entire ? procedure, including non-ventura portions. ? Yoni Tate, 11/20/2019 4:49:13 PM Number of Addenda: 0 Note Initiated On: 11/20/2019 3:26 PM [facility] 11/20/2019 3:26 PM EDT Unknown GENERAL SURGICAL ORD ERABLES [facility] documented in this encounter Visit Diagnoses Not on filedocumented in this encounter Administered Medications Inactive Administered Medications - up to 3 most recent administrations Medication Order MAR Action Action Date Dose Rate Site benzocaine (Hurricane One) Mucosal spray 20% (restricted to jose francisco-procedural use) ONCE PRN, Starting on Wed11/20/19 at 1553, Until Wed11/20/19 at 1931, Intra-Operative (Intra-Procedure) Given 11/20/2019 3:53 PM EDT 1 each diphenhydrAMINE (BENADRYL) injection ONCE PRN, Starting on Wed11/20/19 at 1600, Until Wed11/20/19 at 1931, Intra-Operative (Intra-Procedure), Routine Given 11/20/2019 4:00 PM EDT 25 mg fentaNYL 50 mcg/mL multi-dose injection ONCE PRN, Starting on Wed11/20/19 at 1553, Until Wed11/20/19 at 1931, Intra-Operative (Intra-Procedure), Routine Given 11/20/2019 4:31 PM EDT 25 mcg Given 11/20/2019 4:09 PM EDT 25 mcg Given 11/20/2019 3:57 PM EDT 50 mcg lactated ringers infusion 100 mL/hr, Intravenous, CONTINUOUS, Starting on Wed11/20/19 at 1530, Until Wed11/20/19 at 1718, Endoscopy (Day of Procedure) New Bag 11/20/2019 3:20 PM EDT 100 mL/hr 100 mL/hr midazolam (PF) (VERSED) multi-dose injection ONCE PRN, Starting on Wed11/20/19 at 1553, Until Wed11/20/19 at 1931, Intra-Operative (Intra-Procedure), Routine Given 11/20/2019 4:31 PM EDT 0.5 mg Given 11/20/2019 4:09 PM EDT 0.5 mg Given 11/20/2019 4:02 PM EDT 1 mg documented in this encounter Active and Recently Administered Medications Times are shown in EDT. Continuous Medication Order 11/18/2019 11/19/2019 11/20/2019 lactated ringers infusion (CANCELED) 100 mL/hr, Intravenous, CONTINUOUS, Starting on Wed11/20/19 at 1530, Until Wed11/20/19 at 1718, Endoscopy (Day of Procedure) 1520 (New Bag - Prov ider: Ale Julio RN) PRN Medication Order 11/18/2019 11/19/2019 11/20/2019 benzocaine (Hurricane One) Mucosal spray 20% (restricted to jose francisco-procedural use) (CANCELED) ONCE PRN, Starting on Wed11/20/19 at 1553, Until Wed11/20/19 at 1931, Intra-Operative (Intra-Procedure) 1553 (Given - Provid er: Magaly López RN) diphenhydrAMINE (BENADRYL) injection (CANCELED) ONCE PRN, Starting on Wed11/20/19 at 1600, Until Wed11/20/19 at 1931, Intra-Operative (Intra-Procedure), Routine 1600 (Given - Provid er: Magaly López RN) fentaNYL 50 mcg/mL multi-dose injection (CANCELED) ONCE PRN, Starting on Wed11/20/19 at 1553, Until Wed11/20/19 at 1931, Intra-Operative (Intra-Procedure), Routine 1550 (Given - Provid er: Magaly López RN)1553 (Given - Provider: Magaly López RN)1557 (Given - Provider: Magaly López RN)1609 (Given - Provider: Magaly López RN - Comment: for colo)1631 (Given - Provider: Magaly López RN) midazolam (PF) (VERSED) multi-dose injection (CANCELED) ONCE PRN, Starting on Wed11/20/19 at 1553, Until Wed11/20/19 at 1931, Intra-Operative (Intra-Procedure), Routine 1550 (Given - Provid er: Magaly López RN)1553 (Given - Provider: Magaly López RN)1557 (Given - Provider: Magaly López RN)1602 (Given - Provider: Magaly López RN)1609 (Given - Provider: Magaly López RN - Comment: for colo)1631 (Given - Provider: Magaly López RN) documented in this encounter Care Teams Polishing Machine Operator Helper Relationship Specialty Start Date End Date Rico Aburto MD [address] [place] [id number] PCP - General 08/26/11 09/14/21 documented as of this encounter
--- OUTSIDE RECORDS SUMMARY | 2024-01-11 15:27 | XMS_ITS | Encounter Summary ---
Author Organization [facility] [place] [address] Care Team Providers Care Care Trainer Name Role Phone Rico Aburto MD Primary Care Provider [phone] Reason for Visit * Reason Comments Establish Care * Consultation (Routine) - Specialty Diagnoses / Procedures Referred By Contmauricio t Referred To Contact Obstetrics and Gynecology Diagnoses Noninflammatory disorder of ovary, fallopian tube and broad ligament, unspecified Rico Aburto MD [address] [place] [address] [facility] [employer] [address] [place] [address] Referral ID Status Reason Start Date Expiration Date V isits Requested Visits Authorized [id number] Consult, Test & Treat Connection Center PCP Updated and/or Approved 11/20/2019 11/19/2020 6 6 Encounter Details Date Type Department Care Team (Late st Contact Info) Description 11/27/2019 8:00 AM EDT Office Visit [place] [address] Prasad Romero MD [facility] [address] GYNECOLOGY ONCOLOGY [place] [id number] Simple ovarian cyst; Malignant neoplasm of left ovary ; Diffuse abdominal pain; Liver lesion Social History Tobacco Use Types Packs/Day Years [...] Sign Reading Time Taken Comments Blood Pressure 190/78 11/27/2019 8:01 AM EDT Pulse - - Temperature 36.7 ??C (98.1 ??F) 11/27/2019 8:01 AM ED T Respiratory Rate 20 11/27/2019 8:01 AM EDT Oxygen Saturation 98% 11/27/2019 8:01 AM EDT Inhaled Oxygen Concentration - - Weight 92 kg (202 lb 13.2 oz) 11/27/2019 8:01 AM EDT Height 157 cm (5' 1.81) 11/27/2019 8:01 AM EDT Body Mass Index 37.32 11/27/2019 8:01 AM EDT documented in this encounter Progress Notes * Pooja Gold MD - 11/27/2019 8:00 AM EDT Images from the original note were not included. Division of Gynecologic Oncology Dora Charles MD [facility] Kristyn Hester MD [facility] [place] [address] MD Arlen Dai, [facility] New Outpatient Visit: Reason for visit: Amalia Moreira is being seen in the clinic today at the request of Dr. Aburto for the evaluation of a pelvic mass. I have reviewed the available records, interviewed and examined thepatient. History of Present Illness: Amalia Moreira is a 69 y.o. female para 2 with a PMH significant for mesenteric vein thrombosis, numerous abdominal surgeries (hysterectomy and right salpingo- oophorectomy, cholecystectomy, partial colectomy), hypothyroidism who presents today for evaluation of a pelvic mass. Amalia reports a six month history of self-limited episodes of abdominal pain, that each feel as painful as being hit with a baseball bat. She reports a history of IBS in the past, but no flares foryears. The episodes of pain are sudden in onset, not associated with movement or food, and improve spontaneously without a clear pattern. She states she has been having night sweats and intermittent numbness in her fingers and toes bilaterally with episodes. Generally, she has noticed increased nausea, decreased appetite, and an unexpected weight loss of 13 pounds since October 20, 2019. She has a history of IBS, with severe constipation recently requiring manual disimpaction several times. This isusually followed by diarrhea. She also notes chronic bilateral leg edema that worsens occasionally,but this has not worsened with her current pain episodes. She has lightheaded with standing, with two episodes of emesis with her pain episodes. She denies any urinary symptoms, vaginal cuff bleedingor discharge. On 10/31, she had another episode of pain, which brought her to the [facility] ED. She had a CT scan of her abdomen, which showed a new right upper quadrant mass concerning for malignancy, as well as a leftadnexal cystic structure. She was then transferred to [facility] for a TVUS. However, after evaluation here, the imaging was scheduled in anonemergently as an outpatient due to her clinical stability. She was evaluated by Surgical Oncology at [facility] who reviewed her imaging. Per Dr. Mcmahon's [...] that transvaginal ultrasound and possible referral to patient relations coordinator-onc may be warranted. The plan was to follow up every 6 months to observe that lesion. Of note, Amalia also underwent an EGD and colonoscopy for her abdominal pain and nausea. Polyps wereremoved and pathology confirmed multiple tubular adenomas. Review of Systems: 12 point ROS completed, negative except as listed above. Medical History: 1. Asthma 2. GERD 3. Hypothyroidism 4. IBS Surgical History: 1. Appendectomy, laparoscopic after ruptured appendix, 2010 2. CCY, laparoscopic 3. Right Hemicolectomy, from severe pain, 2010 4. Right oophorectomy and hysterectomy, vaginal, 1983 for AUB 5. EGD, multiple 6. Colonoscopies, multiple 7. [place] teeth removal Medications: 1. Tramadol, PRN 2. Ibuprofen 3. Zofran 4. Synthroid, 100 mcg 5. Prilosec 6. Dulera and albuterol inhalers Allergies: 1.Percocet (dizzy) 2. House dust 3. Prednisone (nausea) Obstetric History: , x2 Gynecologic History/Health Maintenance: Menarche at age 11. Menopause at age 34. Denies control use or HRT use. Recent postmenopausalbleeding/spotting. Currently sexually active. Denies STDs. Has had [...] 40s Melanoma: none Social History: Lives in [place], [place]. 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 Lives in a home, able to complete her daily tasks without issue. Tobacco history: None Alcohol history: Denies use of alcohol or previous problems with same. Drug use: Denies Herbal/alternative therapies: Denies Physical Exam: Vitals: 11/27/19 0801 BP: 190/78 Patient Position: Sitting Resp: 20 Temp: 36.7 ??C (98.1 ??F) TempSrc: Temporal SpO2: 98% Weight: 92 kg (202 lb 13.2 oz) Height: 157 cm (5' 1.81) Body mass index is 37.32 kg/m??. Body surface area is 2 meters squared. General: No apparent distress, resting comfortably HEENT: EOMI, no icterus, no palpable supracervical lymph nodes, cataract lenses present, normal hair distribution. Breast: deferred Heart: regular rate and rhythm, no murmurs/rubs/gallops Lungs: clear to ascultation bilaterally, no wheezes/rhonchi/crackles Abdomen: soft, non-tender to palpation, no rebound or guarding, no masses palpated, multiple previous scars Ext: calves non-tender, no lower extremity edema Pelvic Examination: Vulva/Vagina: external exam of genitalia performed, no lesions noted appearing mucosa, moderate atrophy, normal leukorrhea Cuff: well healed mobile Uterus/Cervix: surgically absent Adnexa: no adnexal masses palpated, no tenderness elicited RVE: No palpable rectal lesions, no gross blood, no nodularity noted on rectovaginal septum, no masses palpated GOG Performance Status: 0 Pertinent Radiographic/Diagnostic Results: CT at [facility] Abdomen/Pelvis 11/03/[address] for Comparison Colonoscopy [...] diaphragm is not assessed on this ultrasound. Upper GI Endoscopy 11/20/2019 Diagnostic Tests/Procedures Ordered: CA -125 Impression/Plan: Amalia Moreira is a 69 y.o.P2 here to discuss management of her diffuse abdominal pelvic pain, localized to her epigastrium, with an incidental finding of a L ovarian cyst found on CT imaging. I reviewed her CT imaging and ultrasound findings, noting that her right upper quadrant lesion appears stable. Her ovarian cyst has no features of complexity appreciated. Based on the presentation of her global abdominal pain, this incidental finding is not likely to bethe cause of her worsening pain. Surgical management has increased risks in the setting of her extensive history of abdominal surgeries, including anesthesia risks, damage to surrounding structures, and non-resolution of her pain. We therefore recommend expectant management with a TVUS follow up in4 months for evaluation of this simple left ovarian cyst. We also will order a CA-125, but stated that this could be elevated in the setting of general inflammation. All questions were answered thoroughly and the patient was discharged to her PCP for further evaluation and management of her diffuse [id number]-[id number] abdominal pain. Advance Directives: Not in place Seen and discussed with Dr. Romero, Attending Pst Supervisor-Oncologist. Pooja Gold MD PGY-3 I saw and evaluated the patient with Dr. Gold, and I confirmed the history and physical findings as outlined, participated in the critical aspects of the patient's care, formulated the treatment plan, and I agree with the note as written. Amalia voiced frustration at her persistent abdominal pain, and the lack of definitive diagnosis. Aspart of her evaluation, she had a CT, which showed a relatively new 5 cm mostly simple left ovariancyst, at the site of her retained left ovary. I reviewed the images with her including the CT and the ultrasound. Mostly this is a simple cyst, which has a rim of residual ovarian tissue next to it. I reviewed the Ca1 25 is not a definitive marker, and in the face of an inflammatory condition, suchas her gastritis/abdominal pain, this could be elevated slightly. As part of her evaluation, a a left ovarian cyst was discovered, and I feel that this is incidental, and not at all contributing to her chronic vague global abdominal pain. Additionally, extirpation of the cyst is unlikely to improve or relieve her abdominal pain, and is not without potential risk,given her extensive surgical history. As above, I favor expectant management with serial imaging via ultrasound of her left ovarian cyst. We will order the same in 4 months. documented in this encounter Plan of Treatment Scheduled Orders Name Type Priority Associated Diagnoses Orde r Schedule Cancer Antigen 125 Lab Routine Malignant neoplasm of left ovary Simple ovarian cyst Expected: 11/27/2019, Expires: 05/28/2020 Scheduled Procedures Name Priority Associated Diagnoses Date/Ti pa EGD, UPPER GI ENDOSCOPY (WRV U 2.09) Esophageal varices without bleeding, unspecified esophageal varices type Portal vein thrombosis documented as of this encounter Procedures Procedure Name Priority Date/Time Associated Diagnosis Comments HC VENIPUNCTURE Routine 11/27/2019 9:07 AM EDT documented in this encounter Results [...] contact the number below. Electronically signed by: Melissa Capellan MD, [facility] ([phone]), at 02/16/2020 1:17 PM ??Melissa Capellan, [facility] & Dept Chair - Rad Electronically Signed Final Report ?? 02/16/2020 01:24 pm Narrative 02/16/2020 1:25 PM EDT Gynecological Report ?(Signed Final 02/16/2020 01:24 pm) PATIENT INFO: ID #: ? [id number] ?: ??50 (69 yrs)(F) Name: ? AMALIA A RELIANCE ?Visit Date: 02/16/2020 01:04 pm PERFORMED BY: Performed By: ? Lamar Garcia RDMS Attending: ?Timi COLON, Melissa Ponce Referred By: ?PRASAD Nguyen [place] Location: ? [place] SERVICE(S) PROVIDED: ??UTV - Transvaginal - [id number] ?[id number] INDICATIONS: ??69 yo with diffuse abd pain, [...] 02/16/2020 01:24 pm) PATIENT INFO: ID #: [id number] : 50 (69 yrs)(F) Name: AMALIA MOREIRA Visit Date: 02/16/2020 01:04 pm PERFORMED BY: Performed By: Lamar Garcia RDMS Attending: Melissa Capellan MD Referred By: PRASAD ROMERO Location: [place] SERVICE(S) PROVIDED: UTV - Transvaginal - [id number] INDICATIONS: 69 yo with diffuse abd pain, [...] report, please contact the number below. Melissa Capellan, [facility] Dept Chair - Rad Electronically Signed Final Report 02/16/2020 01:24 pm Prasad Romero MD IMG US PELVIC ORDERA BLES * (ABNORMAL) Cancer Antigen 125 (11/27/2019 9:07 AM EDT) CA 125 65.4(H) <=38.1 unit/mL [facility] Comment: CA 125 Reference Interval ??Postmenopausal: 6.2 to 31.5 U/mL. ??Premenopausal: 6.9 to 45.9 U/mL. ??Pre and Postmenopausal subjects combined: 6.4 to 38.1 U/mL. Blood specimen (specimen) 11/27/2019 9:07 AM EDT 11/27/2019 9:13 AM EDT Narrative Resulting Agency Comment Spec In Lab Prasad Romero MD CHEMISTRY ORDERABLES [facility] [place] [address] documented in this encounter Visit Diagnoses Diagnosis Simple ovarian cyst Other and unspecified ovarian cyst Malignant neoplasm of left ovary Malignant neoplasm of ovary Diffuse abdominal pain Abdominal pain, unspecified site Liver lesion Other specified disorders of liver Simple ovarian cyst Other and unspecified ovarian cyst documented in this encounter Care Teams Care Trainer Relationship Specialty Start Date End Date Rico Aburto MD [address] [place] [id number] PCP - General 08/26/11 09/14/21 documented as of this encounter
--- OUTSIDE RECORDS SUMMARY | 2024-01-11 15:27 | XMS_ITS | Encounter Summary ---
[place] [address] Care Team Providers Care Sample Case Porter Name Role Phone Rico Aburto MD Primary Care Provider [phone] Encounter Details Date Type Department Care Team (Late st Contact Info) Description 01/31/2020 9:54 AM EDT Anesthesia Event [place] [address] Fabian Spangler MD [facility] [place] [address] Steven Avalos MD [facility] [place] [address] Anesthesia Record Procedure Summary Procedure Name Responsible Anesthesiologist Anesthesia Start Time Anesthesia Stop Time EXCISION RECTAL TUMOR, TRANSANAL APPROACH, PARTIAL THICKNESS (WRVU 8.13) (Perineum) Fabian Spangler MD 01/31/20 0954 01/31/20 1037 Events Date Time Event Comment 01/31/2020 0954 AN Verify 0954 Start 0954 An Start Data 1001 Anesthesia Ready 1009 Procedure Start Local inject ion by surgeon. 1015 1032 an stop data 1035 Recovery or ICU Handoff Alana ent care was transferred to the destination unit staff after review of the patient's medical history, current anesthetic/surgical status and plan, according to the Provider Handoff Checklist. 1037 Stop Meds Name Total Midazolam 1 mg fentaNYL 75 mcg IV Lidocaine 40 mg Propofol 30 mg Propofol INF 316.5 mg Dexmedetomidine 4 mcg lactated ringers infusion 0 mL * Agents Name O2 Air N2O Sevoflurane (et) O2 Auxiliary Flowmeter 1 * Blood No blood administrations on file. Lines, Drains, and Airways Type Details Placement Removal Incision 01/31/20; 1010; anus ; 01/12/22 (LDA cleanup utility RA#[id number]); 1715 (LDA cleanup utility RA#[id number]) 01/31/20 1010 by Belen Rangel RN 01/12/22 1715 by Yoselin Negron documented in this encounter Social History Tobacco [...] OR Notes * Anesthesia Postprocedure Evaluation - Fabian Spangler MD - 01/31/2020 10:46 AM EDT Department of Anesthesiology Post-procedure Note Patient: Amalia Moreira Procedure Summary Date: 01/31/20 Room / Location: [facility] OR [address] [place] [address] Anesthesia Start: 953 Anesthesia Stop: Procedure: EXCISION RECTAL TUMOR, TRANSANAL APPROACH, PARTIAL THICKNESS (WRVU 8.13) (N/A Perineum) Diagnosis: (ANAL POLYP) Surgeon: Randi Silveira MD Responsible Provider: Fabian Spangler MD Anesthesia Type: general ASA Status: 2 All Anesthesia Providers: Anesthesiologist: Fabian Spangler MD GROUP EXERCISE INSTRUCTOR: Nupur Toscano CRNA Vitals Value Taken Time BP 116/56 01/31/20 1034 Temp 36.7 ??C (98.1 ??F) 01/31/20 1034 Pulse 75 01/31/20 1034 Resp 18 01/31/20 1034 SpO2 97 % 01/31/20 1034 Pain Level Patient Location: PACU/[facility] Level of Consciousness: Awake and Alert Pain Management: Satisfactory Analgesia PONV: None Cardiovascular Status: At Baseline and Hemodynamically Stable Respiratory Status: At Baseline and Room Air Postoperative Fluid Status: Intravascular EUvolemia Possible Anesthetic Complications: NONE apparent at time of evaluation Final Primary Anesthesia Type: General (The anesthetic type performed was the same as planned.) Comments: FABIAN SPANGLER MD * Anesthesia Preprocedure Evaluation - Fabian Spangler MD - 01/30/2020 8:18 PM EDT Pre-Anesthesia Evaluation for: Amalia Moreira a 69 y.o. female. Procedure(s): EXCISION RECTAL TUMOR, TRANSANAL APPROACH, PARTIAL THICKNESS (WRVU 8.13) Patient Active Problem List Diagnosis ??? Anal polyp ??? Simple ovarian cyst Incidentally found on CT imaging ??? Diffuse abdominal pain ??? Liver lesion ??? Abdominal pain, right upper quadrant ??? Hallucination, drug-induced ??? Superior mesenteric vein thrombosis ??? Abdominal pain ??? Hypothyroid Past Medical History: Diagnosis Date ??? Asthma ??? GERD (gastroesophageal reflux disease) ??? Hypothyroid ??? IBS (irritable bowel syndrome) Past Surgical History: Procedure Laterality Date ??? APPENDECTOMY ??? CHOLECYSTECTOMY ??? HEMICOLECTOMY right ??? HYSTERECTOMY ??? OVARY REMOVAL right ??? PRG UNLISTED DIAGNOSTIC GASTROENTEROLOGY PROCEDURE 12/21/2013 VIDEO CAPSULE ENDOSCOPY performed by Kenrick Giordano MD at [facility] ENDOSCOPY ??? PRO COLONOSCOPY, DIAGNOSTIC 09/22/2011 COLONOSCOPY, DIAGNOSTIC performed by KENRICK GIORDANO at [facility] ENDOSCOPY ??? PRO COLONOSCOPY, DIAGNOSTIC 12/21/2013 COLONOSCOPY, DIAGNOSTIC performed by Kenrick Giordano MD at [facility] ENDOSCOPY ??? PRO COLONOSCOPY, DIAGNOSTIC N/A 11/20/2019 COLONOSCOPY, DIAGNOSTIC performed by Yoni Tate MD at [facility] ENDOSCOPY ??? PRO COLONOSCOPY, REMV LESN, SNARE N/A 11/20/2019 COLONOSCOPY, POLYPECTOMY, REMOVAL LESION BY SNARE (WRVU 4.67) performed by Yoni Tate MD at [facility] ENDOSCOPY ??? PRO UPPER GI ENDOSCOPY, DIAGNOSTIC 11/07/2013 EGD, UPPER GI ENDOSCOPY performed by Rico Castro MD at [facility] ENDOSCOPY ??? PRO UPPER GI ENDOSCOPY, DIAGNOSTIC 12/21/2013 EGD, UPPER GI ENDOSCOPY performed by Kenrick Giordano MD at [facility] ENDOSCOPY ??? PRO UPPER GI ENDOSCOPY, DIAGNOSTIC N/A 11/20/2019 EGD, UPPER GI ENDOSCOPY performed by Yoni Tate MD at [facility] ENDOSCOPY ??? UPPER GI ENDOSCOPY, EXAM 09/22/2011 UPPER GI ENDOSCOPY performed by KENRICK GIORDANO at [facility] ENDOSCOPY Social History Tobacco Use ??? [...] home medications have been reviewed. Physical Exam: No data found. There is no height or weight on file to calculate BMI. Airway Assessment: Mallampati: I TM distance: >3 FB Neck ROM: full Cardiovascular Assessment: cardiovascular exam normal Pulmonary Assessment: pulmonary exam normal Dental Assessment: - normal exam Misc Assessment: IV access: Peripheral line Anesthesia Plan: ASA 2 general, with a(n) intravenous induction 69yoF, 84 kg (BMI 34) for excision of adenoma at anorectal junction. PMH: hypothyroidism (synthroid), asthma (inhalers), abdominal pain, SMV thrombosis Plan: Propofol/Analgesics IV with soboba airway, LMA or ETT as backup. The patient verbalized understanding of the anesthesia plan including risks and alternatives and agreed to proceed. All questions were answered. Hannah Spangler MD. Region - Other Informed Consent: Anesthetic plan and risks discussed with patient and spouse. Plan discussed with GROUP EXERCISE INSTRUCTOR and attending. PAT Clinic Note documented in this encounter Plan of Treatment [...] MAR Action Action Date Dose Rate Site dexmedetomidine (PRECEDEX) injection PRN, Starting on Wed01/31/20 at 1011, Until Wed01/31/20 at 1047, Anesthesia Intra-op, Routine Given 01/31/2020 10:11 AM EDT 4 mcg fentaNYL 50 mcg/mL multi-dose injection PRN, Starting on Wed01/31/20 at 0954, Until Wed01/31/20 at 1047, Anesthesia Intra-op, Routine Given 01/31/2020 10:15 AM EDT 25 mcg Given 01/31/2020 10:03 AM EDT 25 mcg Given 01/31/2020 9:54 AM EDT 25 mcg lactated ringers infusion 1,000 mL, at 100 mL/hr, Intravenous, CONTINUOUS, Starting on Wed01/31/20 at 0930, Until Wed01/31/20 at 1113, Day of Surgery (Day of Procedure) New Bag 01/31/2020 9:54 AM EDT lidocaine (PF) (XYLOCAINE) 100 mg/5 mL (2 %) injection PRN, Starting on Wed01/31/20 at 0958, Until Wed01/31/20 at 1047, Anesthesia Intra-op, Routine Given 01/31/2020 9:58 AM EDT 40 mg midazolam (PF) (VERSED) multi-dose injection PRN, Starting on Wed01/31/20 at 0954, Until Wed01/31/20 at 1047, Anesthesia Intra-op, Routine Given 01/31/2020 9:54 AM EDT 1 mg propofoL (Diprivan) 10 mg/mL bolus injection (Anesthesia) PRN, Starting on Wed01/31/20 at 1000, Until Wed01/31/20 at 1047, Anesthesia Intra-op Given 01/31/2020 10:00 AM EDT 30 mg propofoL (Diprivan) infusion CONTINUOUS PRN, Starting on Wed01/31/20 at 0958, Until Wed01/31/20 at 1047, Anesthesia Intra-op, Routine Rate/Dose Change 01/31/2020 10:18 AM EDT 50 mcg/kg/min 25.3 mL/hr Rate/Dose Change 01/31/2020 10:15 AM EDT 150 mcg/kg/min 76 mL/hr Rate/Dose Change 01/31/2020 10:05 AM EDT 150 mcg/kg/min 76 mL/hr documented in this encounter Care Teams Sample Case Porter Relationship Specialty Start Date End Date Rico Aburto MD [address] [place] [address] PCP - General 08/26/11 09/14/21 documented as of this encounter
--- OUTSIDE RECORDS SUMMARY | 2024-01-11 15:27 | XMS_ITS | Encounter Summary ---
[place] [address] Care Team Providers Care Receptionist/Telephone Operator Name Role Phone Jacinta Black APRN Primary Care Provider [phone] Reason for Visit * Consultation (Routine) - Closed Specialty Diagnoses / Procedures Referred By Charan benson Referred To Contact Gastroenterology Diagnoses Abdominal mass, unspecified abdominal location Gastroesophageal reflux disease, unspecified whether esophagitis present Nausea Chronic abdominal pain Elevated liver function tests Elevated alkaline phosphatase level Esophageal varices without bleeding Unspecified cirrhosis of liver Nonspecific mesenteric lymphadenitis Jacinta Black APRN [address] [place] [address] [facility] [address] Referral ID Status Reason Start Date Expiration Date V isits Requested Visits Authorized [id number] Closed Consult, Test & Treat PCP Updated and/or Approved 09/25/2021 09/25/2022 12 Encounter Details Date Type Department Care Team (Late st Contact Info) Description 11/12/2021 2:00 PM EDT Office [place] [address] Neena Valadez MD [facility] [place]STR[place] [address] PVT (portal vein thrombosis); Epigastric pain; Esophageal varices without bleeding, unspecified esophageal varices [...] Sign Reading Time Taken Comments Blood Pressure 129/66 11/12/2021 2:01 PM EDT Pulse 68 11/12/2021 2:01 PM EDT Temperature - - Respiratory Rate - - Oxygen Saturation - - Inhaled Oxygen Concentration - - Weight 75.8 kg (167 lb) 11/12/2021 2:01 PM EDT Height - - Body Mass Index 30.54 01/31/2020 9:13 AM EDT documented in this encounter Progress Notes * Neena Valadez MD - 11/12/2021 2:00 PM EDT HEPATOLOGY CONSULTATION Amalia Moreira 1950 PHARMACY OPERATIONS COORDINATOR: Neena Valadez MD ([id number]) PCP: Jacinta Black APRN Requesting Provider: REASON FOR CONSULTATION abdominal pain, portal hypertension HISTORY OF PRESENT ILLNESS Amalia Moreira is a 71 y.o. year old female being seen at the request of above. There are two issuesshe is here today to discuss- abdominal pain and second is portal hypertension. She first developed epigastric pain in October of 2019. It was in the epigastrium and somewhat in the right upper quadrant. It was associated with nausea. The pain was very severe at first and then became less severe but persistent with intermittent severe flares. Over 2020 the pain resolved without any specific intervention. Then on New '2020 she developed sudden onset of the same pain. It persisted until August with intermittent flares of more severe pain. She was evaluated in an ED in [place] in July of this year for this pain. No clear cause was found. She has had CT abd pelvis in July 2021, September 2021 with multiple findings that do not appear to be changed over many years. The second issue she is being seen for is chronic portal vein thrombosis. This occurred in 2010 after a complicated appendectomy/right hemicolectomy for appendicitis. She was briefly on anticoagulation, but then it was stopped because the clot was felt to be chronic with cavernous transformation. She was told recently she has cirrhosis based on the CT findings. She was told she may have fatty liver. She was advised to lose weight and if she she did not, she may need a liver transplant. She started a Mediterranean diet and has lost about 30 lbs. Her says she lost weight because her abdominal pain was worsened by eating. She has had no rectal bleeding. She has had long standing IBS symptoms with lower abdominal pain/cramps/diarrhea/constipation. These have been managed with prn levsin. She was recently placed on miralax. Her notes her memory has been getting worse for several years. She has a hard time with recall. She also has had severe anxiety recently. Insomnia is another issue, difficulty falling asleep. ROS: Constitutional: + weight loss HEENT: no visual changes, no URI symptoms Cardio: no chest pain Resp: no cough, no SOB, no PATINO or orthopnea Hem/Lymph: no new lumps or bumps on body GI: see HPI : no dysuria Integumentary: no new rashes Musculoskeletal: no new joint pains Neuro: no new numbness, weakness in extremities PAST MEDICAL/SURGICAL HISTORY Chronic portal vein thrombosis -occurred acutely 2010 during appendectomy/right hemicolectomy -briefly on anticoagulation -esophageal/gastric varices noted on numerous CT scans -EGD 2019 with small varices- no history of variceal bleed Cystic 3.5cm lesion right posterior abdomen abutting posterior hemidiaphragm. Present since at least 2011 and stable in size over that time. Evaluated by surgical oncology 2019. Left adnexal cystic lesion- felt to be benign, evaluated by wound care physician and no intervention indicated Adenomatous colon polyps- last colo 11/2019, also need transanal excision of an adenomatous polyp after that colo EGD 11/2019- small hiatal hernia, schatzki's ring, small varices, normal stomach and duodenum Hysterectomy 1983- one ovary left in [facility] Appendix 2010 Asthma Obesity - BMI 30-34 MEDICATIONS Outpatient Medications Marked as Taking for the 11/12/21 encounter (Office Visit) with Neena Valadez MD Medication Sig Dispense Refill ??? cholecalciferol, Vitamin D3, 25 mcg (1,000 unit) Capsule Take by mouth. ??? calcium carbonate (CALCIUM 600 ORAL) Take 1,200 Units by mouth. ??? loratadine (Claritin) 10 mg Tablet Take 10 mg by mouth daily. ??? fluticasone propionate (Flonase) 50 mcg/actuation [place], Suspension 1 spray daily. ??? hypromellose (SYSTANE GEL OPHT) Apply to eye. ??? fluticasone propion-salmeteroL (ADVAIR) 250-50 mcg/dose Disk with Device Inhale 1 puff into thelungs every 12 hours. ??? magnesium 250 mg Tablet Take 330 mg by mouth. ??? NAC 600 mg Capsule Take 2 capsules by mouth 2 times daily. ??? atorvastatin (Lipitor) 20 mg Tablet Take 20 mg by mouth nightly. ??? cyclobenzaprine (Flexeril) 10 mg Tablet Take 10 mg by mouth nightly as needed. ??? diclofenac (Voltaren) 1 % Gel APPLY A SMALL AMOUNT TO AFFECTED AREA TWICE DAILY NEEDED. USE SPARINGLY ??? losartan (Cozaar) 25 mg Tablet Take [...] BY MOUTH TWICE DAILY NEEDED FOR PAIN ALLERGIES Allergies Allergen Reactions ??? Percodan [Oxycodone-Aspirin] Other (See Comments) Severe dizziness ??? House Dust CIS - Allergic Rhinitis ??? Percocet [Oxycodone-Acetaminophen] Other (See Comments) Dizziness ??? 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 Pharynx unremarkable. Neck is supple, no adenopathy, no thyromegaly. Chest is clear. Heart: Regular rate and rhythm. Normal S1, S2, no murmurs. Abdomen: Normal bowel sounds; soft. No obvious hepatosplenomegaly. Mild tenderness epigastrium Extremities: No edema. Recent Results (from the past 24 hour(s)) Ammonia Result Value Ref Range Ammonia 31 11 - 51 mcmol/L Fibroscan Results: Median kPa: 6.2 Mean IQR: 15% (goal is <30 %) Number of valid measurements: 10 (at least 10 required) Number of invalid measurements: 0 Predicted fibrosis stage: F0 CAP (dB/m): 166 Estimated steatosis grade: 0/3 ASSESSMENT/PLAN 71 y.o. female.with intermittent epigastric pain for many years. She reports this since 2019, but review of the chart shows she describes the same pain since 2014. This has been evaluated by multipleCT scans and endoscopy without a clear cause. There have been reports of bile duct dilation. I suspect this may be non ulcer dyspepsia, but common bile duct stone is a possible cause. I suggest an upper EUS to evaluate for possible bile duct stone. She should continue pantoprazole for possible reflux. She does not have cirrhosis. The findings of portal htn on imaging and EGD are related to chronic portal vein thrombosis. She may have fatty liver, but I do not think she has cirrhosis based on imaging, labs and fibroscan. With chronic portal vein thrombosis she is at risk for bleeding from esophageal varices. She is also at risk for hepatic encephalopathy. I am not sure her symptoms of memory loss are a manifestation of HE, they are not entirely typical. The lesions in RUQ are stable since 2012 and don't need further follow up. Recommendations: -upper EUS to assess for bile duct stone as a cause of abdominal pain -EGD at time of EUS to assess size of varices, band if large -Ammonia level completely normal, I plan to follow her up to reassess if her symptoms could be HE -Reassurance that she does not have cirrhosis Time spent with patient: 50 min Time spent reviewing records, documentin min Neena Valadez MD Hepatology and Gastroenterology [facility] [address] [place] V: [phone] Copy: Jacinta Black APRN [address] / [facility] [address] documented in this encounter Plan of Treatment Scheduled Orders Name Type Priority Associated Diagnoses Orde r Schedule ENDOSCOPY CASE REQUEST: UPPER EUS- ENDOSCOPIC ULTRASOUND Procedures Routine PVT (portal vein thrombosis) Epigastric pain Esophageal varices without bleeding, unspecified esophageal varices type Ordered: 11/12/2021 Scheduled Procedures Name Priority Associated Diagnoses Date/Ti me EGD, UPPER GI ENDOSCOPY (WRV U 2.09) Esophageal varices without bleeding, unspecified esophageal varices type Portal vein thrombosis documented as of this encounter Procedures Procedure Name Priority Date/Time Associated Diagnosis Comments HC AMMONIA, PLASMA Routine 11/12/2021 3: 47 PM EDT PVT (portal vein thrombosis) documented in this encounter Results * Ammonia (11/12/2021 3:47 PM EDT) Ammonia 31 11 - 51 mcmol/L [facility] Blood 11/12/2021 3:47 PM EDT 11/12/2021 3:57 PM EDT Narrative Resulting Agency Comment Spec In Lab Neena Valadez MD CHEMISTRY ORDERABLES [facility] [address] [place] [address] documented in this encounter Visit Diagnoses Diagnosis PVT (portal vein thrombosis) Portal vein thrombosis Epigastric pain Abdominal pain, epigastric Esophageal varices without bleeding, unspecified esophageal varices type documented in this encounter Care Teams Receptionist/Telephone Operator Relationship Specialty Start Date End Date Jacinta Black, SENG [address] [place] [address] PCP - General Family Medicine 09/15/21 documented as of this encounter
--- OUTSIDE RECORDS SUMMARY | 2024-01-11 15:27 | XMS_ITS | Encounter Summary ---
Author Organization [place] [address] Care Team Providers Care Negotiations Director Name Role Phone Jacinta Black APRN Primary Care Provider [phone] Reason for Referral * Consultation (Routine) - Closed Specialty Diagnoses / Procedures Referred By Charan benson Referred To Contact Dermatology Diagnoses Skin lesion Jacinta Black APRN [address] [place] [address] [facility] [address] [place] [address] Referral ID Status Reason Start Date Expiration Date V isits Requested Visits Authorized [id number] Closed Consult, Test & Treat PCP Updated and/or Approved 10/13/2021 10/13/2022 12 12 Encounter Details Date Type Department Care Team (Late st Contact Info) Description 10/13/2021 Transcribe Orders eDH Incoming Referrals [phone] Jacinta Black APRN [address] [place] [address] Skin lesion Social History Tobacco Use Types Packs/Day [...] as of this encounter Visit Diagnoses Diagnosis Skin lesion Unspecified disorder of skin and subcutaneous tissue documented in this encounter Care Teams Negotiations Director Relationship Specialty Start Date End Date Jacinta Black APRN [address] [place] [address] PCP - General Family Medicine 09/15/21 documented as of this encounter
--- OUTSIDE RECORDS SUMMARY | 2024-01-11 15:27 | XMS_ITS | Encounter Summary ---
Author Organization [facility] [place] [address] Care Team Providers Care Refrigeration Engineer Name Role Phone Jacinta Black APRN Primary Care Provider [phone] Reason for Visit * Auth/Cert Specialty Diagnoses / Procedures Referred By Charan benson Referred To Contact Diagnoses Esophageal varices follow up esophaghageal varices, assess for common bile duct stone Procedures PRO ENDOSCOPIC US EXAM, ESOPH UPPER EUS- ENDOSCOPIC ULTRASOUND Yoni Tate MD [facility] [place] [address] [facility] Referral ID Status Reason Start Date Expiration Date Visits Re quested Visits Authorized [id number] 1 1 Encounter Details Date Type Department Care Team (Late st Contact Info) Description 12/02/2021 8:46 AM EDT Anesthesia [place] [address] Prema Fiugeroa MD [facility] [place] [address] Anesthesia Record Procedure Summary Procedure Name Responsible Anesthesiologist Anesthesia Start Time Anesthesia Stop Time UPPER EUS- ENDOSCOPIC ULTRASOUND (WRVU 3.47) (Trunk) Prema Figueroa MD 12/02/21 0846 12/02/21 0933 Events Date Time Event Comment 12/02/2021 0829 0846 AN Verify 0846 Start 0846 An Start Data 0852 An Induction 0856 Anesthesia Ready 0928 an stop data 0933 Recovery or ICU Handoff Alana ent care was transferred to the destination unit staff after review of the patient's medical history, current anesthetic/surgical status and plan, according to the Provider Handoff Checklist. 0933 Stop Meds Name Total Propofol 110 mg Propofol INF 443.43 mg Lactated Ringers 500 mL * Agents Name O2 Air N2O Sevoflurane (et) O2 Auxiliary Flowmeter 1 * Blood No blood administrations on file. Lines, Drains, and Airways Type Details Placement Removal Incision 01/31/20; 1010; anus ; 01/12/22 (LDA cleanup utility RA#[id number]); 1715 (LDA cleanup utility RA#[id number]) 01/31/20 1010 by Belen Rangel RN 01/12/22 1715 by Yoselin Negron (RETIRED) Peripheral IV Line - Single Lumen 12/02/21; 0818; metacarpal vein (top of hand), right; [id number] catheter system; 22 gauge; Meghan Horn; distraction, tolerated well; 12/02/21; 1237 12/02/21 0818 by Krysta Olson, NEL 12/02/21 1237 by Rene Duong RN documented in this encounter Social History [...] OR Notes * Anesthesia Postprocedure Evaluation - Prema Figueroa MD - 12/02/2021 11:32 AM EDT Department of Anesthesiology Post-procedure Note Patient: Amalia Moreira Procedure Summary Date: 12/02/21 Room / Location: [facility] ENDO 3 / [facility] ENDOSCOPY Anesthesia Start: 0846 Anesthesia Stop: 932 Procedures: UPPER EUS- ENDOSCOPIC ULTRASOUND (N/A Trunk) EGD, W BAND LIGATION OF ESOPHAGEAL/GASTRIC VARICES (N/A Trunk) Diagnosis: PVT (portal vein thrombosis) Epigastric pain Esophageal varices without bleeding, unspecified esophageal varices type (follow up esophaghageal varices, assess for common bile duct stone) Surgeons: Yoni Tate MD Responsible Provider: Prema Figueroa MD Anesthesia Type: MAC ASA Status: 3 All Anesthesia Providers: Anesthesiologist: Prema Figueroa MD UNIONMELT OPERATOR: Rosaura Koo CRNA Vitals Value Taken Time BP 111/59 12/02/21 1120 Temp Pulse Resp 18 12/02/21 1030 SpO2 96 % 12/02/21 1132 Pain Level 6 12/02/21 1000 Vitals shown include unvalidated device data. Patient Location: PACU/[facility] Level of Consciousness: Awake and Alert Pain Management: Satisfactory Analgesia PONV: None Cardiovascular Status: At Baseline and Hemodynamically Stable Respiratory Status: At Baseline and Room Air Postoperative Fluid Status: Intravascular EUvolemia Possible Anesthetic Complications: NONE apparent at time of evaluation Final Primary Anesthesia Type: MAC (The anesthetic type performed was the same as planned.) Comments: PREMA FIGUEROA MD * Anesthesia Preprocedure Evaluation - Prema Figueroa MD - 12/02/2021 8:24 AM EDT Pre-Anesthesia Evaluation for: Amalia Nguyen Harish a 71 y.o. female. Procedure(s): UPPER EUS- ENDOSCOPIC ULTRASOUND Patient Active Problem List Diagnosis Date Noted [...] ENDOSCOPY performed by Kenrick Gonzalez MD at [facility] ENDOSCOPY ??? PRO COLONOSCOPY, DIAGNOSTIC 09/22/2011 COLONOSCOPY, DIAGNOSTIC performed by KENRICK GONZALEZ at [facility] ENDOSCOPY ??? PRO COLONOSCOPY, DIAGNOSTIC 12/21/2013 COLONOSCOPY, DIAGNOSTIC performed by Kenrick Gonzalez MD at [facility] ENDOSCOPY ??? PRO COLONOSCOPY, DIAGNOSTIC N/A 11/20/2019 COLONOSCOPY, DIAGNOSTIC performed by Yoni Tate MD at [facility] ENDOSCOPY ??? PRO COLONOSCOPY, REMV LESN, SNARE N/A 11/20/2019 COLONOSCOPY, POLYPECTOMY, REMOVAL LESION BY SNARE (WRVU 4.67) performed by Yoni Tate MD at [facility] ENDOSCOPY ??? PRO EXC RECTAL TUMOR, TRANSANAL APPROACH, NOT INCL MUSCULARIS PROPRIA N/A 01/31/2020 EXCISION RECTAL TUMOR, TRANSANAL APPROACH, PARTIAL THICKNESS (WRVU 8.13) performed by Randi Silveira MD at [facility] OSC ??? PRO UPPER GI ENDOSCOPY, DIAGNOSTIC 11/07/2013 EGD, UPPER GI ENDOSCOPY performed by Rico Castro MD at [facility] ENDOSCOPY ??? PRO UPPER GI ENDOSCOPY, DIAGNOSTIC 12/21/2013 EGD, UPPER GI ENDOSCOPY performed by Kenrick Gonzalez MD at [facility] ENDOSCOPY ??? PRO UPPER GI ENDOSCOPY, DIAGNOSTIC N/A 11/20/2019 EGD, UPPER GI ENDOSCOPY performed by Yoni Tate MD at [facility] ENDOSCOPY ??? UPPER GI ENDOSCOPY, EXAM 09/22/2011 UPPER GI ENDOSCOPY performed by KENRICK GONZALEZ at [facility] END[facility]COPY Social History Tobacco Use ??? [...] Physical Exam: Preprocedure Vitals Current as of 12/02/21 0824 BP: 147/77 Pulse: 75 Resp: 18 SpO2: 99 Temp: 36.2 ??C (97.2 ??F) Height: Weight: 75.8 kg (167 lb) (11/12/21) BMI: IBW: Last edited 12/02/21 08 by CB Airway Assessment: Mallampati: II TM distance: >3 FB Neck ROM: full Cardiovascular Assessment: system normal Pulmonary Assessment: pulmonary exam normal Dental Assessment: - normal exam Misc Assessment: Patient is wearing No contact(s). 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 Valadez GERD controlled Hypothyroid on replacement No problems with GA in the past, previous anesthesia for bilateral total knees, camelia, appy, hemicolectomy, hysterectomy Multiple medication allergies HTN, Denies CA, stroke,kidney disease, smoking, ZIA Plan propofol sedation Consent signed Region - Other Informed Consent: Anesthetic plan and risks discussed with patient. Plan discussed with UNIONMELT OPERATOR. Anesthesia Screening documented in this encounter Plan of Treatment Scheduled Procedures Name Priority Associated Diagnoses Date/Ti mi EGD, UPPER GI ENDOSCOPY (WRV U 2.09) Esophageal varices without bleeding, unspecified esophageal varices type Portal vein thrombosis documented as of this encounter Visit Diagnoses Not on filedocumented in this encounter Administered Medications Inactive Administered Medications - up to 3 most recent administrations Medication Order MAR Action Action Date Dose Rate Site lactated ringers infusion Intravenous, CONTINUOUS PRN, Starting on Wed12/02/21 at 0846, Until Wed12/02/21 at 0933, Anesthesia Intra-op New Bag 12/02/2021 8:46 AM EDT propofoL (Diprivan) (10 mg/mL) infusion Intravenous, CONTINUOUS PRN, Starting on Wed12/02/21 at 0852, Until Wed12/02/21 at 0933, Anesthesia Intra-op, Routine Rate/Dose Change 12/02/2021 9:13 AM EDT 150 mcg/kg/min 68.22 mL/hr New Bag 12/02/2021 8:52 AM EDT 200 mcg/kg/min 90.96 mL/ hr propofoL (Diprivan) 10 mg/mL bolus injection (Anesthesia) Intravenous, PRN, Starting on Wed12/02/21 at 0852, Until Wed12/02/21 at 0933, Anesthesia Intra-op Given 12/02/2021 8:55 AM EDT 30 mg Given 12/02/2021 8:54 AM EDT 30 mg Given 12/02/2021 8:52 AM EDT 50 mg documented in this encounter Care Teams Refrigeration Engineer Relationship Specialty Start Date End Date Jacinta Black APRN [address] [place] [address] PCP - General Family Medicine 09/15/21 documented as of this encounter
--- OUTSIDE RECORDS SUMMARY | 2024-01-11 15:27 | XMS_ITS | Encounter Summary ---
[place] [address] Care Team Providers Care Test Center Manager Name Role Phone Jacinta Black APRN Primary Care Provider [phone] Reason for Referral * Consultation (Routine) - Closed Specialty Diagnoses / Procedures Referred By Charan benson Referred To Contact Gastroenterology Diagnoses Abdominal mass, unspecified abdominal location Gastroesophageal reflux disease, unspecified whether esophagitis present Nausea Chronic abdominal pain Elevated liver function tests Elevated alkaline phosphatase level Esophageal varices without bleeding Unspecified cirrhosis of liver Nonspecific mesenteric lymphadenitis Jacinta Black APRN [address] [place] [address] [facility] [address] [place] [phone] Referral ID Status Reason Start Date Expiration Date V isits Requested Visits Authorized [id number] Closed Consult, Test & Treat PCP Updated and/or Approved 09/25/2021 09/25/2022 12 12 Encounter Details Date Type Department Care Team (Latest Contact Info) Description 09/25/2021 Transcribe Orders eDH Incoming Referrals [phone] Jacinta Black APRN [address] [place] [address] Abdominal mass, unspecified abdominal location; Gastroesophageal reflux disease, unspecified whether esophagitis present; Nausea; Chronic abdominal pain; Elevated liver function tests Social History Tobacco Use Types Packs/Day Years [...] Priority Associated Diagnoses Order Schedule Referral to Gastroenterology Outpatient Referral Routine Abdominal mass, unspecified abdominal location Gastroesophageal Reflux Disease, Unspecified Whether Esophagitis Present Nausea Chronic abdominal pain Elevated liver function tests Ordered: 09/25/2021 documented as of this encounter Visit Diagnoses Diagnosis Abdominal mass, unspecified abdominal location Gastroesophageal reflux disease, unspecified whether esophagitis present Nausea Nausea alone Chronic abdominal pain Abdominal pain, unspecified site Elevated liver function tests Other abnormal blood chemistry documented in this encounter Care Teams Test Center Manager Relationship Specialty Start Date End Date Jacinta Black APRN [address] [place] [address] PCP - General Family Medicine 09/15/21 documented as of this encounter
--- OUTSIDE RECORDS SUMMARY | 2024-01-11 15:27 | XMS_ITS | Encounter Summary ---
[place] [address] Care Team Providers Care Artificial Fly Tier Name Role Phone Jacinta Black APRN Primary Care Provider [phone] Encounter Details Date Type Department Care Team (Late st Contact Info) Description 11/13/2021 Telephone [place] [address] Veronica Mills Social History Tobacco Use Types Packs/Day Years [...] encounter Miscellaneous Notes * Telephone Encounter - Lani Malhotra - 11/13/2021 10:05 AM EDT Scheduled for 01/27/22. [facility] to schedule EUS. * Telephone Encounter - Veronica Mills - 11/13/2021 9:49 AM EDT Called pt to schedule 8-12 week follow up with Dr. Valadez. Also need to connect pt to procedure schedulers to schedule EUS. Left VM. documented in this encounter Plan of Treatment Scheduled Procedures Name Priority Associated Diagnoses Date/Ti me EGD, UPPER GI ENDOSCOPY (WRV U 2.09) Esophageal varices without bleeding, unspecified esophageal varices type Portal vein thrombosis documented as of this encounter Visit Diagnoses Not on filedocumented in this encounter Care Teams Artificial Fly Tier Relationship Specialty Start Date End Date Jacinta Black APRN [address] [place] [address] PCP - General Family Medicine 09/15/21 documented as of this encounter
--- OUTSIDE RECORDS SUMMARY | 2024-01-11 15:27 | XMS_ITS | Encounter Summary ---
[place] [address] Care Team Providers Care Business Banking Representative Name Role Phone Jacinta Black APRN Primary Care Provider [phone] Reason for Referral * Consultation (Routine) - Closed Specialty Diagnoses / Procedures Referred By Charan benson Referred To Contact Obstetrics and Gynecology Diagnoses Abdominal mass, unspecified abdominal location Chronic abdominal pain Ovarian mass Jacinta Black APRN [address] [place] [address] [facility] Telegraph Lineman [address] [place] [id number] Referral ID Status Reason Start Date Expiration Date V isits Requested Visits Authorized [id number] Closed Consult, Test & Treat PCP Updated and/or Approved 09/15/2021 09/15/2022 6 6 Encounter Details Date Type Department Care Team (Latest Contact Info) Description 09/15/2021 Transcribe Orders eDH Incoming Referrals [phone] Jacinta Black APRN [address] [place] [address] Abdominal mass, unspecified abdominal location; Chronic abdominal pain; Ovarian mass Social History Tobacco Use Types Packs/Day Years [...] Type Priority Associated Diagnoses Orde r Schedule Referral to Ob-Medical Records Receptionist Outpatient Referral Routine Abdominal mass, unspecified abdominal location Chronic abdominal pain Ovarian mass Ordered: 09/15/2021 documented as of this encounter Visit Diagnoses Diagnosis Abdominal mass, unspecified abdominal location Chronic abdominal pain Abdominal pain, unspecified site Ovarian mass Unspecified noninflammatory disorder of ovary, fallopian tube, and broad ligament documented in this encounter Care Teams Business Banking Representative Relationship Specialty Start Date End Date Jacinta Black APRN [address] [place] [address] PCP - General Family Medicine 09/15/21 documented as of this encounter
--- OUTSIDE RECORDS SUMMARY | 2024-01-11 15:27 | XMS_ITS | Encounter Summary ---
[place] [address] Care Team Providers Care Power Wheelchair Mechanic Name Role Phone Rico Aburto MD Primary Care Provider [phone] Encounter Details Date Type Department Care Team (Late st Contact Info) Description 11/21/2019 External Results [place] [phone] Social History Tobacco Use Types Packs/Day Years [...] Procedure Name Priority Date/Time Associated Diagnosis Comments ULTRASOUND SCAN (SCAN) Routine 11/14/2019 documented in this encounter Results * Scan Doc: Ultrasound (11/14/2019) Anatomical Region Laterality Modality Other Historical Provider MD MAYNARD MGR SCAN EX T ORDR/RSLT documented in this encounter Visit Diagnoses Not on filedocumented in this encounter Care Teams Power Wheelchair Mechanic Relationship Specialty Start Date End Date Rcio Aburto MD [address] [place] [address] PCP - General 08/26/11 09/14/21 documented as of this encounter
--- OUTSIDE RECORDS SUMMARY | 2024-01-11 15:27 | XMS_ITS | Encounter Summary ---
[place] [address] Care Team Providers Care Career And Guidance Counselor Name Role Phone Rico Aburto MD Primary Care Provider [phone] Encounter Details Date Type Department Care Team (Late st Contact Info) Description 01/24/2020 Telephone [place] [phone] Randi Silveira MD [facility] [place] [address] Social History Tobacco Use Types Packs/Day Years [...] Telephone Encounter - Randi Silveira MD - 01/24/2020 3:46 PM EDT I spoke with Amalia on the phone. Let her know that Drs. De La Cruz and Tolu plan imaging follow up andno procedures. Will proceed with EUA and excision of the adenoma. This is very small and has already been biopsied. There is a chance that pathology will not show residual adenoma. She has switched to fiber and off the stool softener. No longer having pasty stools. Instead havingsoft, easy to pass BMs. Is very happy with the med switch. Does not want to do enemas at home as she has a [address] Enemas are ordered for preop Randi Silveira MD FACS [employer] automation manager Division of Colon and Rectal Surgery [facility] Pager [phone] documented in this encounter Plan of Treatment Scheduled Procedures Name Priority Associated Diagnoses Date/Ti me EGD, UPPER GI ENDOSCOPY (WRV U 2.09) Esophageal varices without bleeding, unspecified esophageal varices type Portal vein thrombosis documented as of this encounter Visit Diagnoses Not on filedocumented in this encounter Care Teams Career And Guidance Counselor Relationship Specialty Start Date End Date Rico Aburto MD [address] [place] [address] PCP - General 08/26/11 09/14/21 documented as of this encounter
--- OUTSIDE RECORDS SUMMARY | 2024-01-11 15:27 | XMS_ITS | Encounter Summary ---
[place] [address] Care Team Providers Care Camp Nurse Name Role Phone Jacinta Black APRN Primary Care Provider [phone] Encounter Details Date Type Department Care Team (Late st Contact Info) Description 11/13/2021 Telephone [place] [phone] Zohreh Rodriguez Social History Tobacco Use Types [...] * Telephone Encounter - Zohreh Rodriguez - 11/13/2021 12:47 PM EDT Amalia Moreira [id number] Diagnosis/Indication: follow up esophaghageal varices, assess for common bile duct stone 1. Have you ever had a/an Upper EUS before? No If yes, did you have any problems with the procedure? No What type of sedation was used: None 2. Do you take any blood thinners or have you been diagnosed with a bleeding disorder that increases your risk of bleeding with procedures? No 3. Do you have a Pacemaker or Defibrillator device? No 4. Are you a diabetic? No 5. Do you have any Allergies to Eggs, Latex or Medications? Yes: E-DH 6. Do you take any Oral Iron Supplements (Including multi-vitamins)? Yes (Multivitamin) will check for Iron 7. Do you have a history of three or more abdominal surgeries? Yes 8. Have you had a problem with sedation or anesthesia? No 9. Do you use a c-pap machine or oxygen tank? Neither 10. Do you take prescription narcotic pain medications, including suboxone or methodone? Yes PRN 11. Do you have a preference regarding the gender of your provider? Yes: Male ADVANCED PROVIDER 12. Is there any other information you would like to us to note for the provider and nursing team who will perform your case? No 13. Say to patient: You must have a responsible libertarian who will drive you to your procedure, stay oncampus for the entire duration of your procedure, and drive you home from your procedure? *Please Verify the height and weight, and adjust if height and/or weight have changed* Estimated body mass index is 30.54 kg/m?? as calculated from the following: Height as of 01/31/20: 157.5 cm (5' 2). Weight as of 11/12/21: 75.8 kg (167 lb). Age:71 y.o. documented in this encounter Plan of Treatment Scheduled Procedures Name Priority Associated Diagnoses Date/Ti me EGD, UPPER GI ENDOSCOPY (WRV U 2.09) Esophageal varices without bleeding, unspecified esophageal varices type Portal vein thrombosis documented as of this encounter Visit Diagnoses Not on filedocumented in this encounter Care Teams Camp Nurse Relationship Specialty Start Date End Date Jacinta Black APRN [address] [place] [address] PCP - General Family Medicine 09/15/21 documented as of this encounter
--- OUTSIDE RECORDS SUMMARY | 2024-01-11 15:27 | XMS_ITS | Encounter Summary ---
Author Organization [facility] [place] [address] Care Team Providers Care Link Trainer Teacher Name Role Phone Rico Aburto MD Primary Care Provider [phone] Encounter Details Date Type Department Care Team (Late st Contact Info) Description 11/29/2019 Telephone [place] [phone] Yoni Tate MD [facility] [place] [address] Social History Tobacco Use Types Packs/Day Years [...] encounter Miscellaneous Notes * Telephone Encounter - Yoni Tate MD - 11/29/2019 10:36 AM EDT I reviewed pathology results with Ms Moreira, and recommend a referral to colorectal surgery for the anorectal polyp. Surveillance colonoscopy in 3 years documented in this encounter Plan of Treatment Scheduled Procedures Name Priority Associated Diagnoses Date/Ti me EGD, UPPER GI ENDOSCOPY (WRV U 2.09) Esophageal varices without bleeding, unspecified esophageal varices type Portal vein thrombosis documented as of this encounter Visit Diagnoses Not on filedocumented in this encounter Care Teams Link Trainer Teacher Relationship Specialty Start Date End Date Rico Aburto MD [address] [place] [id number] PCP - General 08/26/11 09/14/21 documented as of this encounter
--- OUTSIDE RECORDS SUMMARY | 2024-01-11 15:27 | XMS_ITS | Encounter Summary ---
Author [facility] [address] Care Team Providers Care Economic Adviser Name Role Phone Rico Aburto MD Primary Care Provider [phone] Encounter Details Date Type Department Care Team (Late st Contact Info) Description 02/17/2020 Telephone Gyne[place] [phone] Prasad Motley MD [facility] [place] [address] Social History Tobacco Use Types Packs/Day Years [...] encounter Miscellaneous Notes * Telephone Encounter - Prasad Motley MD - 02/17/2020 11:25 AM EDT I called the patient, reached her on her cell phone call while she was in the store. I reviewed that her recent pelvic ultrasound showed no interval change in the 4 cm simple ovarian cyst. She has the option of seeing me again for removal versus continued ultrasound surveillance, recommending the neck study in 6 months. I have asked her to contact my office with her intentions. documented in this encounter Plan of Treatment Scheduled Procedures Name Priority Associated Diagnoses Date/Ti me EGD, UPPER GI ENDOSCOPY (WRV U 2.09) Esophageal varices without bleeding, unspecified esophageal varices type Portal vein thrombosis documented as of this encounter Visit Diagnoses Not on filedocumented in this encounter Care Teams Economic Adviser Relationship Specialty Start Date End Date Rico Aburto MD [address] [place] [address] PCP - General 08/26/11 09/14/21 documented as of this encounter
--- OUTSIDE RECORDS SUMMARY | 2024-01-11 15:27 | XMS_ITS | Encounter Summary ---
[place] [address] Care Team Providers Care Issue Clerk Name Role Phone Rico Aburto MD Primary Care Provider [phone] Reason for Visit * Reason Onset Date Comments Appointment 12/14/2019 Encounter Details Date Type Department Care Team (Late st Contact Info) Description 12/14/2019 Telephone Gyne[place] [phone] Angelina Lucio, RN Appointment Social History Tobacco Use Types Packs/Day Years [...] encounter Miscellaneous Notes * Telephone Encounter - Angelina Lucio RN - 12/14/2019 4:55 PM EDT Received a call from Missy Baitianshi/[employer]. Per her patient is scheduled for TVUS in March and is requesting to bump it a month because she's leaving for [place] in March. Will check with Dr. Motley if this ok. documented in this encounter Plan of Treatment Scheduled Procedures Name Priority Associated Diagnoses Date/Ti me EGD, UPPER GI ENDOSCOPY (WRV U 2.09) Esophageal varices without bleeding, unspecified esophageal varices type Portal vein thrombosis documented as of this encounter Visit Diagnoses Not on filedocumented in this encounter Care Teams Issue Clerk Relationship Specialty Start Date End Date Rico Aburto MD [address] [place] [id number] PCP - General 08/26/11 09/14/21 documented as of this encounter
--- OUTSIDE RECORDS SUMMARY | 2024-01-11 15:27 | XMS_ITS | Encounter Summary ---
[place] [address] Care Team Providers Care Power Systems Engineer Name Role Phone Rico Aburto MD Primary Care Provider [phone] Encounter Details Date Type Department Care Team (Late st Contact Info) Description 05/28/2020 Telephone [place] [phone] Sade Pereira Social History Tobacco Use Types Packs/Day Years [...] encounter Miscellaneous Notes * Telephone Encounter - Sade Baker - 05/28/2020 11:45 AM EST I called Lawanda regarding scheduling a follow up visit with Dr. De La Cruz in General Surgery. She thought that she only had to see her PCP for follow up. I asked Dr. De La Cruz and he said this was okay with him. I have deleted her recall. She will call usif she has any new questions or concerns. documented in this encounter Plan of Treatment Scheduled Procedures Name Priority Associated Diagnoses Date/Ti me EGD, UPPER GI ENDOSCOPY (WRV U 2.09) Esophageal varices without bleeding, unspecified esophageal varices type Portal vein thrombosis documented as of this encounter Visit Diagnoses Not on filedocumented in this encounter Care Teams Power Systems Engineer Relationship Specialty Start Date End Date Rico Aburto MD [address] [place] [id number] PCP - General 08/26/11 09/14/21 documented as of this encounter
--- OUTSIDE RECORDS SUMMARY | 2024-01-11 15:27 | XMS_ITS | Encounter Summary ---
[place] [address] Care Team Providers Care Gas Tender Name Role Phone Rico Aburto MD Primary Care Provider [phone] Encounter Details Date Type Department Care Team (Latest Contact Info) Description 11/27/2019 8:56 AM EDT - 11/27/2019 11:59 PM EDT Hospital Encounter Hematology [place] [address] Discharge Disposition: Home Social History Tobacco Use [...] on filedocumented in this encounter Care Teams Gas Tender Relationship Specialty Start Date End Date Rico Aburto MD [address] [place] [address] PCP - General 08/26/11 09/14/21 documented as of this encounter
--- OUTSIDE RECORDS SUMMARY | 2024-01-11 15:28 | XMS_ITS | Encounter Summary ---
[place] [address] Care Team Providers Care Agricultural Labor Camp Manager Name Role Phone Rico Aburto MD Primary Care Provider [phone] Encounter Details Date Type Department Care Team (Latest Contact Info) Description 05/01/2016 11:11 AM EST - 05/01/2016 11:59 PM [facility] Hospital En[place] [address] Rachna Mueller MD [facility] [place] [address] Abnormal mammogram Discharge Disposition: Home Social History Tobacco Use Types Packs/Day Years Used Date Smoking Tobacco: Never Smokeless Tobacco: Never Alcohol Use Standard Drinks/Week Comments No 0 (1 standard drink = 0.6 oz pur e alcohol) Sex and Gender Information Value Date Recorded Sex Assigned at Not on file Gender Identity Not on file Sexual Orientation Not on file documented as of this encounter Medications at Time of Discharge Medication Sig Dispensed Refills Start Date End Date acetaminophen (TYLENOL) 325 mg tablet Take 650 mg by mouth every 4 hours as needed. albuterol (PROVENTIL HFA;VENTOLIN HFA) 90 mcg/Actuation inhaler Inhale 1 puff into the lungs daily. Use with spacer MOMETASONE FUROATE (NASONEX NASL) by Nasal route. 11/27/2019 fluticasone-salmeterol (ADVAIR) 100-50 mcg/dose diskus inhaler Inhale 1 puff into the lungs daily. 11/02/2019 levothyroxine (SYNTHROID) 25 mcg tablet Take 100 [...] Procedure Name Priority Date/Time Associated Diagnosis Comments MAMMO BREAST US LIMITED LEFT Routine 05/01/2016 11:44 AM EST Abnormal mammogram documented in this encounter Results * Mammo Breast Us Limited Left (05/01/2016 11:44 AM EST) Anatomical Region Laterality Modality Breast Left Mammography Impressions 05/01/2016 1:32 PM EST Impression: Stable benign-appearing well-circumscribed mass in the lateral aspect of the left breast; the appearance is consistent with intramammary lymph node. No mammographic or directed ultrasound evidence of malignancy. Recommendation: A six-month follow-up left mammogram to confirm continued stability of this benign-appearing well-circumscribed mass in the lateral left breast, which is consistent with an intramammary lymph node. Findings discussed with the patient who concurs. BI-RADS Category 3: Probably Benign Finding-short interval follow-up or continued surveillance mammography ?? Narrative 05/01/2016 1:32 PM EST Examination: Diagnostic left breast mammogram and left BREAST ULTRASOUND Indication: Probably benign left breast mass, 6 month follow-up for probably benign Category 3. Technique: 2-D and 3-D dat synthesis left LM, MLO, X CCL, CC, spot X CCL; in addition, targeted left breast ultrasound was performed. Comparison: 09/30/2015, 04/08/2016 Findings mammogram: Examination left breast again demonstrates a well-circumscribed 5 mm mass in the lateral left breast on the cc view only. A Fatty hilum is again identified associated with this mass.. This mass appears stable in size and appearance since comparison views. Findings are consistent with a benign intramammary lymph node. Findings ULTRASOUND: I personally performed directed ultrasound of the posterior lateral left breast and demonstrate no evidence of discrete solid lesion, abnormal acoustical shadowing, or cyst. ? Rachna Mueller MD IMG MAMMO ORD ERABLES documented in this encounter Visit Diagnoses Diagnosis Abnormal mammogram Abnormal mammogram, unspecified documented in this encounter Care Teams Agricultural Labor Camp Manager Relationship Specialty Start Date End Date Rico Aburto MD [address] [place] [address] PCP - General 08/26/11 09/14/21 documented as of this encounter
--- OUTSIDE RECORDS SUMMARY | 2024-01-11 15:28 | XMS_ITS | Encounter Summary ---
Author Organization [facility] [place] [address] Care Team Providers Care Environmental Engineering Manager Name Role Phone Rico Aburto MD Primary Care Provider [phone] Reason for Visit * Reason Comments Establish Care * Consultation (Urgent) - Specialty Diagnoses / Procedures Referred By Charan benson Referred To Contact General Surgery Diagnoses Intra-abdominal and pelvic swelling, mass and lump, unspecified site Magaly Livingston MD [address] [place] [address] [facility] Gen Surgery [address] [place] [address] Referral ID Status Reason Start Date Expiration Date V isits Requested Visits Authorized [id number] Consult, Test & Treat Connection Center PCP Updated and/or Approved 11/03/2019 11/02/2020 12 12 Encounter Details Date Type Department Care Team (Late st Contact Info) Description 11/08/2019 10:15 AM EDT Office [place] [address] Jarred De La Cruz MD [facility] [place] [address] Intra-abdominal and pelvic swelling, mass and lump, unspecified site; Retroperitoneal mass Social History Tobacco Use Types Packs/Day [...] Sign Reading Time Taken Comments Blood Pressure 159/70 11/08/2019 10:00 AM EDT Pulse 64 11/08/2019 10:00 AM EDT Temperature 36.3 ??C (97.4 ??F) 11/08/2019 10:00 AM E DT Respiratory Rate 16 11/08/2019 10:00 AM EDT Oxygen Saturation 99% 11/08/2019 10:00 AM EDT Inhaled Oxygen Concentration - - Weight 88.7 kg (195 lb 9.6 oz) 11/08/2019 10:00 AM EDT Height 157.5 cm (5' 2.01) 11/08/2019 10:00 AM E DT Body Mass Index 35.77 11/08/2019 10:00 AM EDT documented in this encounter H&P Notes * Jarred De La Cruz MD - 11/08/2019 10:15 AM EDT Surgical Oncology Consultation Note Reason for Visit: Amalia Moreira is a 69 y.o. female seen at the request of Magaly Livingston for evaluation of RIGHT RP and pelvic masses. History of the present illness: Amalia Moreira is a 69 y.o. year old female with PMH significant for hypothyroidism. Patient recently found to have RIGHT RP (perinephric/retrohepatic) mass along with cystic mass of the pelvis. She denies any recent symptoms.. She reports no history of prior liver disease. He has no known history of hepatitis, cirrhosis, or cancer. Patient reports no history of EtOH abuse, and currently reports scan drinks per week. Overall, she feels well. Denies fatigue. Denies weight loss. Denies headaches. No bony pain or tenderness. No abdominal pain or blood in the stool. She is accompanied to this visit by her . Active Ambulatory Problems Diagnosis Date Noted ??? Abdominal pain 03/28/2011 ??? Hypothyroid 03/28/2011 ??? 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 Hallucination, drug-induced 04/02/2011 ??? Abdominal pain, right upper quadrant 04/03/2011 Resolved Ambulatory Problems Diagnosis Date Noted ??? Elevated alkaline phosphatase level 03/28/2011 ??? Acute pancreatitis 03/28/2011 ??? Nausea 03/28/2011 Past Medical History: Diagnosis Date ??? Asthma ??? GERD (gastroesophageal reflux disease) Past Surgical History: Procedure Laterality Date ??? APPENDECTOMY ??? CHOLECYSTECTOMY ??? HEMICOLECTOMY right ??? HYSTERECTOMY ??? OVARY REMOVAL right ??? PRG UNLISTED DIAGNOSTIC GASTROENTEROLOGY PROCEDURE 12/21/2013 VIDEO CAPSULE ENDOSCOPY performed by Ximena Gonzalez MD at [facility] END[facility] ??? PRO COLONOSCOPY, DIAGNOSTIC 09/22/2011 COLONOSCOPY, DIAGNOSTIC performed by XIMENA GONZALEZ at [facility] ENDOSCOPY ??? PRO COLONOSCOPY, DIAGNOSTIC 12/21/2013 COLONOSCOPY, DIAGNOSTIC performed by Ximena oGnzalez MD at [facility] ENDOSCOPY ??? PRO UPPER GI ENDOSCOPY, DIAGNOSTIC 11/07/2013 EGD, UPPER GI ENDOSCOPY performed by Rico Castro MD at [facility] ENDOSCOPY ??? PRO UPPER GI ENDOSCOPY, DIAGNOSTIC 12/21/2013 EGD, UPPER GI ENDOSCOPY performed by Ximena Gonzalez MD at [facility] END[facility] ??? UPPER GI ENDOSCOPY, EXAM 09/22/2011 UPPER GI ENDOSCOPY performed by XIMENA GONZALEZ at [facility] Review of systems: A 12 point comprehensive ROS was reviewed with the patient. It was otherwise negative except for what was stated in the HPI. she otherwise denies high blood pressure, heart disease, lung disease, diabetes, and infectious diseases. Current Outpatient Medications: ??? traMADoL (Ultram) 50 mg Tablet, TAKE 1 TO 2 TABLETS BY MOUTH TWICE DAILY NEEDED FOR PAIN, Disp: , Rfl: ??? ibuprofen (Advil;Motrin) 400 mg Tablet, Take 800 mg by mouth daily. Patient takes 1/2 tab daily, Disp: , Rfl: ??? ondansetron ODT (Zofran ODT) 4 mg Tablet, Rapid Dissolve, Take 1-2 tablets by mouth every 8 hours as needed for Nausea., Disp: 30 tablet, Rfl: 1 ??? Mometasone-Formoterol (Dulera) 200-5 mcg/actuation HFA Aerosol Inhaler, Inhale 2 puffs into thelungs daily., Disp: , Rfl: ??? docusate sodium (Colace) 100 mg Capsule, Take 100 mg by mouth 2 times daily., Disp: , Rfl: ??? MOMETASONE FUROATE (NASONEX NASL), by Nasal route., Disp: , Rfl: ??? acetaminophen (TYLENOL) 325 mg tablet, Take 650 mg by mouth every 4 hours as needed., Disp: , Rfl: ??? albuterol (PROVENTIL HFA;VENTOLIN HFA) 90 mcg/Actuation inhaler, Inhale 1 puff into the lungs daily. Use with spacer , Disp: , Rfl: ??? levothyroxine (SYNTHROID) 25 mcg tablet, Take 100 mcg by mouth daily., Disp: , Rfl: ??? omeprazole (PRILOSEC) 10 mg capsule, Take 10 mg by mouth daily., Disp: , Rfl: Allergies: Allergies Allergen Reactions ??? Percodan [Oxycodone-Aspirin] Other (See Comments) Severe dizziness ??? House Dust CIS - Allergic Rhinitis ??? Percocet [Oxycodone-Acetaminophen] Other (See Comments) Dizziness Social History: Social History Socioeconomic History ??? Marital status: Spouse name: Not on file ??? Number of children: Not on file ??? Years of education: Not on file ??? Highest education level: Not on file Occupational History ??? Not on file Social Needs ??? Financial resource strain: Not on file ??? Food insecurity Worry: Not on file Inability: Not on file ??? Transportation needs Medical: Not on file Non-medical: Not on file Tobacco Use ??? Smoking status: Never Smoker ??? Smokeless tobacco: Never Used Substance and Sexual Activity ??? Alcohol use: No ??? Drug use: No ??? Sexual activity: Not Currently Lifestyle ??? Physical activity Days per week: Not on file Minutes per session: Not on file ??? Stress: Not on file Relationships ??? Social connections Talks on phone: Not on file Gets together: Not on file Attends restoration service: Not on file Active member of club or organization: Not on file Attends meetings of clubs or organizations: Not on file Relationship status: Not on file ??? Intimate partner violence Fear of current or ex partner: Not on file Emotionally abused: Not on file Physically abused: Not on file Forced sexual activity: Not on file Other Topics Concern ??? Do You live alone? Not Asked ??? Tobacco in Home Not Asked Social History Narrative ??? Not on file Family History Problem Relation Age of Onset ??? Breast Cancer Sister Physical Examination: Constitutional: This is a 69 y.o. female in no apparent distress. BP 159/70 Pulse 64 Temp 36.3 ??C (97.4 ??F) Resp 16 Ht 157.5 cm (5' 2.01) Wt 88.7 kg (195 lb 9.6 oz) SpO2 99% BMI 35.77 kg/m?? Lymphatic basin exam: There was no palpable adenopathy in the bilateral supraclavicular, cervical, axillary or inguinal regions. Eyes: anicteric, extra ocular movements are intact Neuro: No focal deficits. Hearing and speech intact Psych: the patient is alert and oriented. Normal affect. Heart: Regular rate and rhythm. No peripheral edema Lungs: Clear bilaterally with good air intake Abdomen: Soft, non-tender, non-distended. There are normal active bowel sounds, no hepatosplenomegaly. Musculoskeletal: The patient has normal gait, range of motion, and muscle strength Skin: warm, dry, good turgor, non-icteric. Assessment and plans: Amalia Moreira is a 69 y.o. year old female PMH significant for hypothyroidism presenting today withRIGHT RP mass and pelvic mass. In review of imaging, the Retroperitoneal mass has been present at least since 2011 and possible 2010. It's relatively stable in size and benign on appearance. We discussed options of observing vs. Obtaining biopsy. Given the lesion adjacent to pleura, higher risk of PTx Pelvic lesion is less clear and I agree that transvaginal ultrasound and possible referral to high school principal-onc may be warranted. The patient a asked multiple questions which were answered to their satisfaction and she would liketo proceed with plan as follows: 1) RTC in 6month with repeat CT scan to for surveillance of RP mass 2) Transvaginal U/S for pelvic, cystic lesion Jarred De La Cruz MD, MPH Surgical Oncology documented in this encounter Plan of Treatment Scheduled Procedures Name Priority Associated Diagnoses Date/Ti me EGD, UPPER GI ENDOSCOPY (WRV U 2.09) Esophageal varices without bleeding, unspecified esophageal varices type Portal vein thrombosis documented as of this encounter Visit Diagnoses Diagnosis Intra-abdominal and pelvic swelling, mass and lump, unspecified site Retroperitoneal mass Abdominal or pelvic swelling, mass or lump, unspecified site documented in this encounter Care Teams Environmental Engineering Manager Relationship Specialty Start Date End Date Rico Aburto MD [address] [place] [address] PCP - General 08/26/11 09/14/21 documented as of this encounter
--- OUTSIDE RECORDS SUMMARY | 2024-01-11 15:28 | XMS_ITS | Encounter Summary ---
[place] [address] Care Team Providers Care Senior Vice President And Chief Information Officer Name Role Phone Rico Aburto MD Primary Care Provider [phone] Reason for Visit * Reason Onset Date Comments Follow-up 12/05/2013 Encounter Details Date Type Department Care Team (Late st Contact Info) Description 12/05/2013 Telephone [place] [address] Rico Castro MD [facility] [place] [address] Follow-up Social History Tobacco Use Types Packs/Day Years [...] encounter Miscellaneous Notes * Telephone Encounter - Rico Castro MD - 12/05/2013 11:02 AM EDT I called Amalia today - she was not at home yesterday and had tried to call her multiple times. She states that she continues to have the left upper quadrant pain. Difficulty eating and rodrigo eback stools which have been ongoing. She denies any lightheadeness or vomiting but is having trouble eating. I have arranged for her to be seen tomorrow in clinic by Dr. Lombardi as I will be away. She knows to go to the emergency room immediately with any worsening abdominal pain, bright red blood, fevers or any other symptoms about which she is concerned. documented in this encounter Plan of Treatment Scheduled Procedures Name Priority Associated Diagnoses Date/Ti me EGD, UPPER GI ENDOSCOPY (WRV U 2.09) Esophageal varices without bleeding, unspecified esophageal varices type Portal vein thrombosis documented as of this encounter Visit Diagnoses Not on filedocumented in this encounter Care Teams Senior Vice President And Chief Information Officer Relationship Specialty Start Date End Date Rico Aburto MD [address] [place] [id number] PCP - General 08/26/11 09/14/21 documented as of this encounter
--- OUTSIDE RECORDS SUMMARY | 2024-01-11 15:28 | XMS_ITS | Encounter Summary ---
Author Organization [facility] [place] [address] Care Team Providers Care Ragman Name Role Phone Rico Aburto MD Primary Care Provider [phone] Encounter Details Date Type Department Care Team (Late st Contact Info) Description 11/07/2019 Orders Only [place] [id number] Jarred De La Cruz MD [facility] [place] [address] Intra-abdominal and pelvic swelling, mass and lump, unspecified site (Primary Dx) Social History Tobacco Use Types [...] documented as of this encounter Results * Request For 2nd [...] nodules. 2. ??New cystic pelvic focus likely route sales representative of a LEFT adnexal cystic lesion. [...] report, please contact the number below. ? Narrative 12/05/2019 9:19 AM EDT EXAMINATION: REQUEST FOR 2ND READ CT ABDOMEN AND PELVIS CLINICAL HISTORY: Intra-abdominal and pelvic swelling, mass and lump, unspecified site; provider request; What Modality is the exam? CT Scan; Body Part (please add comments as necessary): abdomen and pelvis; Sending Institution [facility]; Date of exam 20191101; I believe a reinterpretation of this exam may alter care of Patient. Yes TECHNIQUE: CT of the abdomen and pelvis performed at [facility] on 11/01/2019. Axial coronal and sagittal [...] retrospect, this was likely present on the 2011 study at which time it measured [...] add comments as necessary): abdomen and pelvis; [facility]; Date of exam 20191101; I believe a reinterpretation of this exam may alter care of Patient. Yes TECHNIQUE: CT of the abdomen and pelvis performed at [facility] on 11/01/2019. Axial coronal and sagittal 3 [...] In retrospect, this was likely present onthe 2012 study at which time it measured [...] mild, grade 1, anterolisthesis of L4 on [id number] to bilateral pars interarticularis defects. IMPRESSION 1. [...] nodules. 2. New cystic pelvic focus likely route sales representative of a LEFT adnexalcystic lesion. Recommend [...] this report, please contact the number below. Jarred De La Cruz MD IMG OUTSIDE INTERPRE TATION ORDERABLES documented in this encounter Visit Diagnoses Diagnosis Intra-abdominal and pelvic swelling, mass and lump, unspecified site- Primary Intra-abdominal and pelvic swelling, mass and lump, unspecified site documented in this encounter Care Teams Ragman Relationship Specialty Start Date End Date Rico Aburto MD [address] [place] [address] PCP - General 08/26/11 09/14/21 documented as of this encounter
--- OUTSIDE RECORDS SUMMARY | 2024-01-11 15:28 | XMS_ITS | Encounter Summary ---
Author Organization [facility] Address [facility] [place] [address] Care Team Providers Care Hvac Specialist Name Role Phone Rico Aburto MD Primary Care Provider [phone] Encounter Details Date Type Department Care Team (Latest Contact Info) Description 02/20/2013 - 02/20/2013 11:59 PM EDT Hospital Encounter [place] [address] Janice Calle MD [facility] [place] [address] Pain Discharge Disposition: Home Social History Tobacco Use [...] into the lungs daily. Use with spacer naproxen sodium (ALEVE) 220 mg tablet Take 220 mg by mouth 2 times daily (with meals). 12/06/2013 MOMETASONE FUROATE (NASONEX NASL) by Nasal route. 11/27/2019 ondansetron (ZOFRAN) 4 mg tablet Take 1 tablet by mouth every 8 hours as needed for Nausea. 20 tablet 0 04/04/2011 11/07/2013 warfarin (COUMADIN) 5 mg tablet Take 1 tablet by mouth every evening. 30 tablet 3 04/02/2011 11/07/2013 fluticasone-salmeterol (ADVAIR) 100-50 mcg/dose diskus inhaler Inhale [...] Procedure Name Priority Date/Time Associated Diagnosis Comments FILM LIBRARY STORAGE ONLY MAMMO Routine 02/20/2013 12:00 AM EDT Pain documented in this encounter Results * Film Library- Storage Only Mammo (02/20/2013 12:00 AM EDT) Narrative [facility] - 04/15/2016 2:05 PM EST This exam is for storage only and is auto-finalizing. Janice Calle MD IMG FILM LIBRARY O RDERABLES [place], [place] documented in this encounter Visit Diagnoses Diagnosis Pain Generalized pain documented in this encounter Care Teams Hvac Specialist Relationship Specialty Start Date End Date Rico Aburto MD [address] [place] [address] PCP - General 08/26/11 09/14/21 documented as of this encounter
--- OUTSIDE RECORDS SUMMARY | 2024-01-11 15:28 | XMS_ITS | Encounter Summary ---
Author Organization [facility] [place] [address] Care Team Providers Care Hospital Orderly Name Role Phone Rico Aburto MD Primary Care Provider [phone] Reason for Visit * Reason Onset Date Comments Other 09/02/2011 Encounter Details Date Type Department Care Team (Late st Contact Info) Description 09/02/2011 Telephone [place] [address] Suresh Angel MD [facility] [place] [address] Other Social History Tobacco Use Types Packs/Day Years [...] encounter Miscellaneous Notes * Telephone Encounter - Suresh Angel - 09/02/2011 4:50 PM EDT I have contacted Ms. Moreira to discuss the results of her CT and most recent lab testing. Her Alk Phos continues to decline since the time of her acute portal vein/mesenteric vein clot. She previouslyunderwent CT and MRCP which demonstrated no pathology other than clot and associated mesenteric venous stranding. I have discussed with Ms. 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 I think it would be worth performing a one time EGD to evaluate for esophageal varices given potential for portal hypertension. Ms. Moreira notes that she is also due for a screening risk colonoscopy, last performed 10 years ago. I will arrange for both to be performed. documented in this encounter Plan of Treatment Scheduled Procedures Name Priority Associated Diagnoses Date/Ti me EGD, UPPER GI ENDOSCOPY (WRV U 2.09) Esophageal varices without bleeding, unspecified esophageal varices type Portal vein thrombosis documented as of this encounter Procedures Procedure Name Priority Date/Time Associated Diagnosis Comments UPPER GI ENDOSCOPY Routine 09/02/2011 4:54 PM EDT Portal vein thrombosis COLONOSCOPY Routine 09/02/2011 4:54 PM EDT Colon cancer screening documented in this encounter Visit Diagnoses Diagnosis Portal vein thrombosis Colon cancer screening Special screening for malignant neoplasms, colon documented in this encounter Care Teams Hospital Orderly Relationship Specialty Start Date End Date Rico Aburto MD [address] [place] [address] PCP - General 08/26/11 09/14/21 documented as of this encounter
--- OUTSIDE RECORDS SUMMARY | 2024-01-11 15:28 | XMS_ITS | Encounter Summary ---
[place] [address] Care Team Providers Care Medical Practice Manager Name Role Phone Rico Aburto MD Primary Care Provider [phone] Encounter Details Date Type Department Care Team (Late st Contact Info) Description 11/08/2019 Telephone [place] [address] Annia Oviedo Social History Tobacco Use Types Packs/Day Years [...] encounter Miscellaneous Notes * Telephone Encounter - Annia Oviedo - 11/08/2019 2:23 PM EDT Called pt to schedule a procedure from her ref. Case is built. No answer so left a vm documented in this encounter Plan of Treatment Scheduled Procedures Name Priority Associated Diagnoses Date/Ti me EGD, UPPER GI ENDOSCOPY (WRV U 2.09) Esophageal varices without bleeding, unspecified esophageal varices type Portal vein thrombosis documented as of this encounter Visit Diagnoses Not on filedocumented in this encounter Care Teams Medical Practice Manager Relationship Specialty Start Date End Date Rico Aburto MD [address] [place] [address] PCP - General 08/26/11 09/14/21 documented as of this encounter
--- OUTSIDE RECORDS SUMMARY | 2024-01-11 15:28 | XMS_ITS | Encounter Summary ---
Author Organization [facility] Address [facility] [place] [address] Care Team Providers Care Flask Cleaner Name Role Phone Rico Aburto MD Primary Care Provider [phone] Encounter Details Date Type Department Care Team (Latest Contact Info) Description 09/30/2015 - 09/30/2015 11:59 PM EDT Hospital Encounter [place] [address] Janice Calle MD [facility] [place] [address] Pain Discharge Disposition: Home Social History Tobacco [...] Comments FILM LIBRARY STORAGE ONLY MAMMO Routine 09/30/2015 12:00 AM EDT Pain documented in this encounter Results * Film Library- Storage Only Mammo (09/30/2015 12:00 AM EDT) Narrative [facility] - 04/15/2016 2:39 PM EST This exam is for storage only and is auto-finalizing. Janice Calle MD IMG FILM LIBRARY O RDERABLES [place], [place] documented in this encounter Visit Diagnoses Diagnosis Pain Generalized pain documented in this encounter Care Teams Flask Cleaner Relationship Specialty Start Date End Date Rico Aburto MD [address] [place] [address] PCP - General 08/26/11 09/14/21 documented as of this encounter
--- OUTSIDE RECORDS SUMMARY | 2024-01-11 15:28 | XMS_ITS | Encounter Summary ---
[place] [address] Care Team Providers Care Silica Dry Press Helper Name Role Phone Rico Aburto MD Primary Care Provider [phone] Reason for Visit * Reason Comments Follow-up Encounter Details Date Type Department Care Team (Late st Contact Info) Description 12/06/2013 2:30 PM EDT [place] [address] Luis Alfredo Lombardi MD [facility] [place] [address] Melena; Abdominal pain, unspecified site; Abdominal pain, right upper quadrant Discharge Disposition: Home Social History Tobacco Use [...] Sign Reading Time Taken Comments Blood Pressure 118/72 12/06/2013 2:31 PM EDT Pulse - - Temperature - - Respiratory Rate - - Oxygen Saturation - - Inhaled Oxygen Concentration - - Weight 87.1 kg (192 lb) 12/06/2013 2:31 PM EDT Height 160 cm (5' 3) 12/06/2013 2:31 PM EDT Body Mass Index 34.01 12/06/2013 2:31 PM EDT documented in this encounter Progress Notes * Kenrick Gonzalez MD - 12/08/2013 3:26 PM EDT Reviewed case with fellow. Patient not seen. * Luis Alfredo Lombardi - 12/06/2013 2:[address] [facility] Department of Gastroenterology Outpatient Progress Note GI Problem List: #. Portal Vein and Splenic Vein thrombosis - hospitalized in [place] February 2011 with RLQ pain, found to have appendicitis - underwent right kiersten-colectomy given concern intra-op for abnormal appearing/feeling bowel, ultimately all inflammatory related to appendicitis - course complicated by superficial wound infection - presented early March with worsening abdominal pain, clenching epigastric pain, nausea, and POintolerance with elevated Alk Phos and ALT - CT at OSH with fatty infiltration of liver, no other acute pathology - CT at 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 Diffuse mesenteric edema and lymphadenopathy is stable, may be secondary to chronic occlusion and resultant congestion or secondary mesenteritis. #. Hypothyroidism #. GERD #. Asthma #. s/p cholecystectomy Interval Events: Since 09/2013, pt with increasingly episodic midepigastric pain associated with nausea. Pain is aching in character, not associated with eating, however pt does endorse postprandial fullness. Pt denies heartburn, regurgitation, taste changes. Pt has had reduced PO intake during this time. Intermittently roughly 2X/week pt with melanotic BMs , painless. Pt endorses 12 lbs weight loss over past 7 months. Of note, pt does use Ibupofren 800mg BID in context of knee OA/knee replacement for years. Currently pt endorses chronic nausea, midepigastric pain denies vomiting, BRBPR, melena in past 2 days, diarrhea. . Midepigastric pain, reduced PO intake. Drives exacerbates pain. Constant midepigastric pain, aching, NR, resolveson, no association with eating. Pain nausea. Postprandial fullness. No taste changes. Medications: Current Outpatient Prescriptions on File Prior to Visit Medication Sig Dispense Refill ??? MOMETASONE FUROATE (NASONEX NASL) by Nasal route. ??? acetaminophen (TYLENOL) 325 mg tablet Take 650 mg by mouth every 4 hours as needed. ??? fluticasone-salmeterol (ADVAIR) 100-50 mcg/dose diskus inhaler Inhale 1 puff into the lungs daily. ??? albuterol (PROVENTIL HFA;VENTOLIN HFA) 90 mcg/Actuation inhaler Inhale 2 puffs into the lungs every 4 hours as needed. Use with spacer ??? levothyroxine (SYNTHROID) 25 mcg tablet Take 100 mcg by mouth daily. ??? omeprazole (PRILOSEC) 10 mg capsule Take 10 mg by mouth daily. Vitals: Last value Range last 24 hrs Temperature Heart Rate Heart Rate: -- Blood Pressure BP: 118/72 mmHg BP: -- Respiratory Rate Resp: -- SpO2 SpO2: -- Wt Readings from Last 3 Encounters: 12/06/13 87.091 kg (192 lb) 08/31/11 100 kg (220 lb 7.4 oz) 04/20/11 94.6 kg (208 lb 8.9 oz) Physical Exam: Gen: NAD, cooperative HEENT: EOMI, Anicteric sclera, MMM CV: RRR, S1, S2 Resp: CTAB, no rales, wheezing, rhonchi, normal respiratory effort Abd: Soft, general mild TTP, ND, NABS, No HSM appreciated Labs: Recent Labs Basename 12/06/13 1705 WBC 5.6 HGB 15.1 HCT 43.2 PLATELET 162 NEUTROABS 2.83 Recent Labs Basename 12/06/13 1705 NA 139 K 4.0 CL 104 CO2 21* BUN 14 CREATININE 0.61* Recent Labs Basename 12/06/13 1705 CALCIUM 9.8 MAGNESIUM -- PHOS -- Recent Labs Basename 12/06/13 1705 AST 27 ALT 20 ALKPHOS 110* BILITOT 0.9 BILIDIR 0.2 No results found for this basename: INR:3,PT:3,PTT:3 in the last 72 hours ASSESSMENT/PLAN: 63 year old female with medical history pertinent for GERD, 2010 appendicitis s/p appendectony c/b right hemicolectomy and portal and splenic vein thrombosis now with weight loss, nausea, abdominal pain, intermittent melena, relatively unremarkable LFTs,CBC, CMP, recent EGD wnl, CT 11/2013 revealingmesenteric congestion, chronic protal/SMV clots. D/w CT with radiology, celiac/SMA/BISI appear generally patent with some mild calcifications. Suspect likely chronic mesenteric ischemia 2/2 mesentericcongestion/edema. This congestion may in fact be 2/2 to known portal/SMV clots. In this context pt would likely benefit from anticoagulation, however pt with chronic intermittent melena. As a result plan for melena evaluation with repeat EGD in addition to a colonoscopy and pill capsule endoscopy. If these evaluation are negative, may need to consider resuming warfarin. Recommendations: -Outpatient EGD/Amistad/Capsule endoscopy -Following these results, consider need for coumadin for portal/SMV clots Electronically signed by: Luis Alfredo Lombardi Gastroenterology Fellow [facility] Pager [phone] 12/08/2013 documented in this encounter Plan of Treatment Scheduled Procedures Name Priority Associated Diagnoses Date/Ti me EGD, UPPER GI ENDOSCOPY (WRV U 2.09) Esophageal varices without bleeding, unspecified esophageal varices type Portal vein thrombosis documented as of this encounter Procedures Procedure Name Priority Date/Time Associated Diagnosis Comments HEMOGRAM Routine 12/06/2013 5:05 PM EDT Melena DIFFERENTIAL, AUTOMATED Routine 12/06/2013 5:05 PM EDT Melena CBC (WITH DIFF) Routine 12/06/2013 5:05 PM EDT Melena LACTATE, PLASMA Routine 12/06/2013 5:05 PM EDT Abdominal pain, unspecified site COMPREHENSIVE METABOLIC PANEL Routine 12/06/2013 5:05 PM EDT Melena documented in this encounter Results * Differential, Automated (12/06/2013 5:05 PM EDT) Neutrophil % 50.4 34.0 - 71.0 % [facility] Neutrophil Absolute 2.83 1.50 - 6.30 x10(3)/mcL [facility] MILLENNI[facility] Lymph % 29.8 19.0 - 53.0 % [facility] MILLENNIUM Lymphocytes Abs 1.7 1.0 - 3.6 x10(3)/mcL [facility] MILLENNIUM Monocyte % 12.8 4.0 - 13.0 % [facility] MILLENNIUM Monocyte Abs 0.7 0.2 - 1.0 x10(3)/mcL [facility] MILLENNIUM Eos % 5.9 0.0 - 7.0 % [facility] MILLENNIUM Eosinophils Abs 0.3 0.0 - 0.5 x10(3)/mcL [facility] MILLENNI[facility] Basophil % 0.9 0.0 - 2.0 % [facility] MILLENNIUM Baso Absolute 0.0 0.0 - 0.2 x10(3)/mcL [facility]ILLENNI[facility] Immature Gran % 0.20 0.00 - 0.66 % [facility] MILLENNIUM Comment: Immature granulocytes(IG's)percentage and absolute count will include metamyelocytes, myelocytes, and promyelocytes. Blood smears from CBCs yielding IG's will be scanned manually for concordance. If this scan disagrees with the automated IG or if promyelocytes are noted, a manual differential will be performed. Immature Gran Absolute 0.01 0.00 - 0.05 x10(3)/mcL [facility]ILL[facility]NI[facility] Blood specimen (specimen) 12/06/2013 5:05 PM EDT 12/06/2013 5:14 PM EDT Narrative Resulting Agency Comment Spec In Lab Kenrick Gonzalez MD HEMATOLOGY ORDERABLE S [facility]ERNER MORENAENNIUM * (ABNORMAL) Hemogram (12/06/2013 5:05 PM EDT) White Blood Cell 5.6 4.0 - 10.0 x10(3)/mc L [facility] Red Blood Cell 4.50 3.93 - 5.22 x10(6)/mc L [facility] Hemoglobin 15.1 11.2 - 15.7 gm/dL [facility] Hematocrit 43.2 34.0 - 45.0 % [facility] MILLENNIUM Mean Cell Volume 96.0(H) 79.0 - 94.0 fL [facility] MILLENNIUM Mean Cell Hemoglobin 33.6(H) 26.6 - 32.2 pg [facility] Mean Cell Hemoglobin Concentration 35.0 32.0 - 36.5 gm/dL [facility] Platelet 162 145 - 370 x10(3)/mc L [facility] RDW Standard Deviation 44.1 35.0 - 46.0 fL [facility] MILLENNIUM RDW coefficient of variation 12.7 10.9 - 14.4 % [facility] MILLENNIUM Mean Platelet Volume 10.2 9.0 - 12.0 fL [facility] Blood specimen (specimen) 12/06/2013 5:05 PM EDT 12/06/2013 5:14 PM EDT Narrative Resulting Agency Comment Spec In Lab Kenrick Gonzalez MD HEMATOLOGY ORDERABLE S Performing Organization Address City/[facility]/ZIP Co de Phone Number [facility] * Lactate, plasma (12/06/2013 5:05 PM EDT) Pathologist [facility] Lactic Acid 1.3 0.5 - 2.2 mmol/L [facility] Blood specimen (specimen) 12/06/2013 5:05 PM EDT 12/06/2013 5:10 PM EDT Narrative Resulting Agency Comment Spec In Lab Kenrick Gonzalez MD CHEMISTRY ORDERABLES [facility] * (ABNORMAL) Comprehensive metabolic panel (non-fasting) (12/06/2013 5:05 PM EDT) Pathologist [facility] Glucose 78 60 - 199 mg/dL CERNER MILLENNIUM Comment:Diabetes: >=200 mg/d L plus symptoms Blood Urea Nitrogen 14 8 - 18 mg/dL [facility] MILLENNIUM Creatinine 0.61(L) 0.70 - 1.20 mg/dL [facility] MILLENNIUM Comment: Please note that the pediatric reference intervals supplied above were not validated at [facility]. Results from pediatric patients should be interpreted in conjunction to the patient's age, height and muscle mass. Sodium 139 135 - 145 mmol/L [facility] MILLENNIUM Potassium 4.0 3.5 - 5.0 mmol/L [facility] MILLENNIUM Comment: Please note: ??Patients with WBC >100,000 may have falsely elevated Potassium levels. ??For accurate Potassium quantification in these patients send serum separator tube (gold top) for subsequent determinations. ??Contact the Clinical Chemistry Laboratory if there are any questions. Chloride 104 98 - 107 mmol/L C[facility] MILLENNIUM Carbon Dioxide 21(L) 22 - 31 mmol/L [facility] MILLENNIUM Anion Gap 14 5 - 15 mmol/L [facility] MILLENNIUM Calcium 9.8 8.5 - 10.5 mg/dL [facility]ILL[facility] Protein, Total 7.2 6.4 - 8.3 gm/dL [facility]ILL[facility]NI[facility] Albumin 4.2 3.2 - 5.2 gm/dL [facility]ILLENNI[facility] Aspartate Aminotransferase 27 0 - 30 unit/L [facility] MILLENNI[facility] Alanine Aminotransferase 20 0 - 30 unit/L [facility] MILLENNI[facility] Alkaline Phosphatase 110(H) 40 - 104 unit/L [facility] MILLENNI[facility] Bilirubin, Total 0.9 0.2 - 1.3 mg/dL [facility]ILLENNI[facility] Bilirubin, Direct 0.2 0.0 - 0.3 mg/dL [facility] Est Glomerular Filtration Rate >60 >=60 [facility] MILLENNIUM Comment: This estimated GFR (eGFR) value was calculated using the MDRD equation which has been validated on patients between the ages of 18 and 70. The MDRD should not be used to assess kidney function in patients < 18 years of age or in patients with extremes of body mass, or in patients with acute kidney failure. This value should be multiplied by 1.2 for patients. For further information please copy and paste the following links into your internet browser. http://Daptiv/DHnkdep http://Daptiv/DHMCnkf Blood specimen (specimen) 12/06/2013 5:05 PM EDT 12/06/2013 5:14 PM EDT Narrative Resulting Agency Comment Spec In Lab Kenrick Gonzalez MD CHEMISTRY ORDERABLES Performing Organization Address City/State/[facility] Co tn Phone Number [facility] documented in this encounter Visit Diagnoses Diagnosis Melena Blood in stool Abdominal pain, unspecified site Abdominal pain, right upper quadrant documented in this encounter Care Teams Silica Dry Press Helper Relationship Specialty Start Date End Date Rico Aburto MD [address] [place] [id number] PCP - General 08/26/11 09/14/21 documented as of this encounter
--- OUTSIDE RECORDS SUMMARY | 2024-01-11 15:28 | XMS_ITS | Encounter Summary ---
[place] [address] Care Team Providers Care Wood Treating Inspector Name Role Phone Rico Aburto MD Primary Care Provider [phone] Encounter Details Date Type Department Care Team (Late st Contact Info) Description 11/01/2019 Ancillary Procedure [place] [address] Social History Tobacco Use Types Packs/Day Years [...] Associated Diagnosis Comments FILM LIBRARY STORAGE ONLY CT ABDOMEN AND PELVIS STAT 11/01/2019 12:00 AM EDT documented in this encounter Results * Film Library- Storage Only CT Abdomen & Pelvis (11/01/2019 12:00 AM EDT) Narrative [facility] - 11/02/2019 11:38 PM EDT This exam is auto-finalizing. It's purpose is for storage only. Geovanny Phillips MD IMG FILM LIBRARY ORD ERABLES [facility] [place], [place] documented in this encounter Visit Diagnoses Not on filedocumented in this encounter Care Teams Wood Treating Inspector Relationship Specialty Start Date End Date Rico Aburto MD [address] [place] [address] PCP - General 08/26/11 09/14/21 documented as of this encounter
--- OUTSIDE RECORDS SUMMARY | 2024-01-11 15:28 | XMS_ITS | Encounter Summary ---
Author Organization [facility] [place] [address] Care Team Providers Care Furnace Door Tender Name Role Phone Rico Aburto MD Primary Care Provider [phone] Encounter Details Date Type Department Care Team (Late st Contact Info) Description 04/15/2016 External Results [place] [id number] Rico Martinez MD [facility] [place] [address] Social History Tobacco Use Types Packs/Day Years [...] Procedure Name Priority Date/Time Associated Diagnosis Comments MAMMOGRAM SCAN Routine 02/20/2013 MAMMOGRAM SCAN Routine 07/17/2010 MAMMOGRAM SCAN Routine 10/02/2008 MAMMOGRAM SCAN Routine 05/19/2007 documented in this encounter Results * Scan Doc: Mammogram (02/20/2013) Anatomical Region Laterality Modality Other Rico Martinez MD MEDIA MGR SCAN EXT O RDR/RSLT * Scan Doc: Mammogram (07/17/2010) Anatomical Region Laterality Modality Other Rico Martinez MD MEDIA MGR SCAN EXT O RDR/RSLT * Scan Doc: Mammogram (10/02/2008) Anatomical Region Laterality Modality Other Rico Martinez MD MEDIA MGR SCAN EXT O RDR/RSLT * Scan Doc: Mammogram (05/19/2007) Anatomical Region Laterality Modality Other Rico Martinez MD MEDIA MGR SCAN EXT O RDR/RSLT documented in this encounter Visit Diagnoses Not on filedocumented in this encounter Care Teams Furnace Door Tender Relationship Specialty Start Date End Date Rico Aburto MD [address] [place] [address] PCP - General 08/26/11 09/14/21 documented as of this encounter
--- OUTSIDE RECORDS SUMMARY | 2024-01-11 15:28 | XMS_ITS | Encounter Summary ---
Author Organization Formerly [facility] [place] [address] Care Team Providers Care Glacing Machine Tender Name Role Phone Rico Aburto MD Primary Care Provider [phone] Reason for Visit * Reason Comments Abdominal Pain Encounter Details Date Type Department Care Team (Late st Contact Info) Description 11/02/2019 8:44 PM EDT - 11/03/2019 2:06 AM EDT Emergency [place] [address] Geovanny Phillips MD [facility] [place] [address] Left lower quadrant abdominal pain (Primary Dx) Discharge Disposition: Home Social History Tobacco Use [...] Sign Reading Time Taken Comments Blood Pressure 153/66 11/02/2019 5:13 PM EDT Pulse 75 11/02/2019 5:13 PM EDT Temperature 37.1 ??C (98.8 ??F) 11/02/2019 5:13 PM ED T Respiratory Rate 11/02/2019 5:13 PM EDT Oxygen Saturation 96% 11/03/2019 2:00 AM EDT Inhaled Oxygen Concentration - - Weight 88.9 kg (196 lb) 11/02/2019 5:13 PM EDT Height 157.5 cm (5' 2) 11/02/2019 5:13 PM EDT Body Mass Index 35.85 11/02/2019 5:13 PM EDT documented in this encounter Discharge Instructions * Discharge Instructions* Phuc Reeves MD - 11/03/2019 2:04 AM EDT You came to the emergency department in order to get an ultrasound due to left lower abdominal pain, in the context of a recent abnormal CT scan showing something in that area. We discussed your prior imaging with our overnight on- call radiologists, and they were reassured by the CT scan, and did not think there was an emergent reason to get to the ultrasound. Therefore, they recommended getting the ultrasound in a more routine setting. You were discharged from the emergency department, and a referral was placed for a transvaginal ultrasound at [facility] in the near future. Please follow-up with your PCP. Please return to the emergency department if you develop any fevers, severely worsening abdominal pain, or other concerning symptoms. documented in this encounter Medications at Time of Discharge Medication Sig Dispensed Refills Start Date End Date ondansetron ODT (Zofran ODT) 4 mg Tablet, [...] daily. 10/15/2021 documented as of this encounter ED Notes * Farzaneh Cornejo RN - 11/03/2019 1:29 AM EDT Pt resting at this time. Waiting for ultrasound * Phuc Reeves MD - 11/02/2019 10:48 PM EDT Amalia Moreira is an 69 y.o. female who presents to the ED with: Chief Complaint Patient presents with ??? Abdominal Pain I saw this patient 11/02/2019 at ~ 10:48 PM HPI Amalia Moreira is a 69 y.o. female with a PMH significant for mesenteric vein thrombosis, numerous abdominal surgeries (hysterectomy and right salpingo- oophorectomy, cholecystectomy, partial colectomy), hypothyroidism who presents to the Emergency Department with nearly 2 weeks of abdominal pain, although no recent finding of a cystic structure around her left adnexa at [facility] yesterday. She reports that she began having abdominal pain as if I were hit by a baseball bat in April. She has had 5 self-limited episodes of this. The most recent 1 began on October 19. She did not seek anymedical care for prior to yesterday at [facility]. The pain comes and goes, and there is no clear patternof things that make it worse or better. It is not associated with food. Sometimes, along with the pa in, she has episodes of sweating, but no objective fevers. The sweating occurs at night, and she will wake up with it. She had one instance in which she had some numbness in her distal fingers and toes bilaterally. She has been feeling nauseous, and has not been eating very much, and has lost around 10 pounds in the last 2 weeks. She has intermittent diarrhea and constipation. She recently started taking Colace. She denies any black or bloody stools. She did vomit one time in the last 2 weeks, and it was nonbloody, nonbilious. She has not had any urinary symptoms, or abnormal vaginal bleedingor discharge. She presented to the [facility] emergency department yesterday for this pain. Troponin and EKG were normal there. She had a CT scan of her abdomen, which showed a new right upper quadrant mass concerning for malignancy, as well as a left adnexal cystic structure. [facility] wanted her to come to the [facility] emergency department for a transvaginal ultrasound to further characterize this left adnexal structure. She is going to be following up with her PCP to to arrange for biopsy of the right upper quadrant mass. Social History Socioeconomic History ??? Marital status: Spouse name: None ??? Number of children: None ??? Years of education: None ??? Highest education level: None Occupational History ??? None Social Needs ??? Financial resource strain: None ??? Food insecurity Worry: None Inability: None ??? Transportation needs Medical: None Non-medical: None Tobacco Use ??? Smoking status: Never Smoker ??? Smokeless tobacco: Never Used Substance and Sexual Activity ??? Alcohol use: No ??? Drug use: No ??? Sexual activity: Not Currently Lifestyle ??? Physical activity Days per week: None Minutes per session: None ??? Stress: None Relationships ??? Social connections Talks on phone: None Gets together: None Attends catholic service: None Active member of club or organization: None Attends meetings of clubs or organizations: None Relationship status: None ??? Intimate partner violence Fear of current or ex partner: None Emotionally abused: None Physically abused: None Forced sexual activity: None Other Topics Concern ??? Do You live alone? Not Asked ??? Tobacco in Home Not Asked Social History Narrative ??? None Review of Systems: Review of Systems Constitutional: Positive for diaphoresis, fatigue and unexpected weight change. Negative for chillsand fever. HENT: Negative for congestion, rhinorrhea and sore throat. Eyes: Negative for redness and visual disturbance. Respiratory: Negative for cough, chest tightness, shortness of breath and wheezing. Cardiovascular: Negative for chest pain, palpitations and leg swelling. Gastrointestinal: Positive for abdominal pain, constipation, diarrhea, nausea and vomiting. Negative for blood in stool. Endocrine: Negative for polyuria. Genitourinary: Negative for dysuria, hematuria, pelvic pain, vaginal bleeding and vaginal discharge. Musculoskeletal: Negative for back pain and neck pain. Skin: Negative for rash. Neurological: Positive for weakness and numbness. Negative for headaches. Hematological: Does not bruise/bleed easily. Psychiatric/Behavioral: Negative for confusion. Vital Signs: Patient Vitals for the past 24 hrs: BP Temp Temp src Pulse Resp SpO2 Height Weight 11/02/19 1713 153/66 37.1 ??C (98.8 ??F) Oral 75 19 95 % 157.5 cm (5' 2) 88.9 kg (196 lb) I have reviewed the vital signs, which demonstrates mild htn Physical Exam: Physical Exam HENT: Head: Normocephalic and atraumatic. Nose: Nose normal. Mouth/Throat: Mouth: Mucous membranes are moist. Pharynx: No oropharyngeal exudate or posterior oropharyngeal erythema. Eyes: General: No scleral icterus. Right eye: No discharge. Left eye: No discharge. Pupils: Pupils are equal, round, and reactive to light. Neck: Musculoskeletal: Normal range of motion. No neck rigidity. Cardiovascular: Rate and Rhythm: Normal rate and regular rhythm. Pulses: Normal pulses. Heart sounds: Normal heart sounds. No murmur. No friction rub. No gallop. Pulmonary: Effort: Pulmonary effort is normal. No respiratory distress. Breath sounds: Normal breath sounds. No stridor. No wheezing, rhonchi or rales. Lymphadenopathy: Cervical: No cervical adenopathy. Neurological: Mental Status: She is alert. ED Course: - Patient was evaluated and discussed with Dr. Phillips - Medications, allergies and past medical history reviewed - Nursing notes and vital signs reviewed -Initial labs: CBC, BMP, LFTs, lipase, UA - Spoke with radiology about getting a transvaginal ultrasound. They reviewed CT scan of the abdomen, and noted that the left adnexal cystic structure was seen on prior abdominal imaging, and also felt that it was not part of the ovary itself. Therefore, they did not feel that there was an emergentindication to get a transvaginal ultrasound, and recommended she get one in the outpatient setting,or in the morning in the emergency department. - Spoke with patient and her about the options for nonemergent transvaginal ultrasound, andthey decided to leave the emergency department and get it in the outpatient setting. - Placed order for outpatient transvaginal ultrasound. - Medications and fluid administered: Medications - No data to display - I have reviewed the labs, which are significant for: Within normal limits, except mild elevated AST Recent Results (from the past 24 hour(s)) Basic Metabolic Panel (non-fasting) Result Value Ref Range Glucose Lvl 76 65 - 199 mg/dL BUN 10 8 - 18 mg/dL Creatinine 0.52 (L) 0.70 - 1.20 mg/dL Sodium 138 135 - 145 mmol/L Potassium 4.2 3.5 - 5.0 mmol/L Chloride 102 98 - 107 mmol/L CO2 21 (L) 22 - 31 mmol/L Anion Gap 15 5 - 15 mmol/L Calcium 9.3 8.5 - 10.5 mg/dL eGFR 97 >=60 mL/min/1.73 m?? eGFR 113 >=60 mL/min/1.73 m?? Hepatic Function Panel Result Value Ref Range Total Protein 6.9 6.1 - 8.0 gm/dL Albumin 4.2 3.2 - 5.2 gm/dL AST 41 (H) 0 - 30 unit/L ALT 23 0 - 30 unit/L Alk Phos 92 35 - 105 unit/L Total Bilirubin 0.9 0.2 - 1.3 mg/dL Bili, Direct 0.2 0.0 - 0.3 mg/dL Lipase Result Value Ref Range Lipase 18 0 - 60 unit/L Hemogram Result Value Ref Range WBC 5.0 4.0 - 9.5 x10(3)/mcL RBC 4.56 4.00 - 5.21 x10(6)/mcL Hemoglobin 14.6 11.7 - 15.5 gm/dL Hematocrit 43.5 35.7 - 45.8 % MCV 95.4 (H) 82.6 - 94.4 fL MCH 32.0 27.1 - 32.0 pg MCHC 33.6 31.7 - 35.0 gm/dL Platelets 163 145 - 357 x10(3)/mcL RDWSD 45.1 37.0 - 46.0 fL RDWCV 12.9 11.5 - 14.1 % MPV 9.6 7.6 - 12.9 fL nRBC % Auto 0.0 % nRBC Abs Auto 0.000 0.000 - 0.000 x10(3)/mcL Differential, Automated Result Value Ref Range Neutrophils % 56.9 % Neutr Abs (ANC) 2.87 1.70 - 6.10 x10(3)/mcL Lymphocytes % 26.8 % Lymphocytes Abs 1.4 0.9 - 3.2 x10(3)/mcL Monocytes % 12.9 % Monocyte Abs 0.6 0.3 - 0.9 x10(3)/mcL Eosinophils % 2.2 % Eosinophils Abs 0.1 0.0 - 0.4 x10(3)/mcL Basophils % 1.0 % Basophils Abs 0.0 0.0 - 0.1 x10(3)/mcL Immature Gran % 0.20 % Philomena Gran Abs 0.01 0.00 - 0.04 x10(3)/mcL Blue Tube HOLD Result Value Ref Range Blue Hold Sample in lab. Gold Tube HOLD Result Value Ref Range Gold Hold Sample in lab. - I have reviewed the imaging, which is significant for: N/a No orders to display - I have reviewed the EKG, which is significant for: N/a - I performed the following procedure(s): N/a Assessment and Plan: MDM: Amalia Moreira is a 69 y.o. female with a PMH significant for mesenteric vein thrombosis, numerous abdominal surgeries (hysterectomy and right salpingo- oophorectomy, cholecystectomy, partial colectomy), hypothyroidism who presents to the Emergency Department with nearly 2 weeks of abdominal pain, although no recent finding of a cystic structure around her left adnexa at [facility] yesterday. Initial concern was for possible ovarian torsion, but this is less likely given patient's age. Discussed extensively with radiology, who did not feel that this cystic structure was either new, or within the ovary, and therefore was determined that there was no emergent indication to get a transvaginal ultrasoun d at this time. Patient opted for discharge from the emergency department to do this in the outpatient setting. Ovarian cyst is another possible diagnosis, but again based on discussion with radiology they did not feel that this cystic structure was within the ovary. They thought it could be cysticdegeneration of residual vaginal tissue after her hysterectomy. Referral placed for outpatient transvaginal ultrasound, and the patient was instructed to follow-up with her PCP. Return precautions were verbally discussed with the patient. The patient expressed understanding that they could come back to the ED at any time and agreed to the follow-up plan. Plan: - Discharge home - Follow up with PCP - Referral placed for transvaginal ultrasound outpatient -Prescription provided for Zofran as needed - Return precautions were discussed with the pt Phuc Reeves MD PGY-1 11/02/19 10:48 PM Phuc Reeves MD Resident 11/03/19 0213 Associated attestation - Geovanny Phillips MD - 11/03/2019 8:56 AM EDT ED ATTENDING ATTESTATION The patient was seen in conjunction with Dr. Reeves, the resident physician. I have independently performed the ventura portions of the history and physical exam. I have reviewed all diagnostic studies personally including labs, imaging studies and EKGs. I have discussed the details of the case withthe resident and agree with the assessment and plan as described in the resident note above unless noted in my separate note. ED Course as of Nov 02 854 Lorri Nov 02, 2019 2253 69 yo w/ abd pain for several wks, CT at OSH yesterday performed. Hx of multiple abd surgeriesincluding camelia, partial colectomy, hysterectomy w/ multiple episodes of severe abd pain, aching pain. Not associated with foods. Intermittent in nature. Night sweats. Decreased PO, 10 lb wt loss. Constipation worse than baseline. No urinary or pelvic symptoms. 2255 CT showed tumor in right upper quadrant, planned for outpatient biopsy with PCP. Left adnexal cyst. * Cici Guan APRN - 11/02/2019 5:09 PM EDT PROVIDER TRIAGE NOTE Patient: Amalia Moreira Age (): 69 y.o. (1950) CC: ABD pain HPI: Amalia Moreira is a 69 y.o. female with PMH significant for asthma who presented to the ED for ABD pain. Pt states that she was seen at OSH dx with abd tumors. She was tod to come to [facility]. COVID-19 Screening: Symptoms [] Fever [] Cough [] SOB [x] None Exposure [] Recent travel outside [place] [] Contact with known or suspected positive individuals [x] None PE: There were no vitals taken for this visit. Patient well-appearing, no acute distress. PLAN: Lab work, review of previous recordsRepeat examination, obtain further diagnostics as indicated, and ongoing evaluation/management per ED provider. Cici Guan APRN 11/02/19 1713 documented in this encounter Plan of Treatment Scheduled Procedures Name Priority Associated Diagnoses Date/Ti de EGD, UPPER GI ENDOSCOPY (WRV U 2.09) Esophageal varices without bleeding, unspecified esophageal varices type Portal vein thrombosis documented as of this encounter Procedures Procedure Name Priority Date/Time Associated Diagnosis Comments HEMOGRAM STAT 11/02/2019 7:55 PM EDT DIFFERENTIAL, AUTOMATED STAT 11/02/2019 7:55 PM EDT GOLD TUBE HOLD STAT 11/02/2019 7:55 PM EDT BLUE TUBE HOLD STAT 11/02/2019 7:55 PM EDT HC CBC,PLT & AUTO DIFF STAT 11/02/2019 7:55 PM EDT HC LIPASE STAT 11/02/2019 7:55 PM EDT HEPATIC FUNCTION PANEL STAT 11/02/2019 7:55 PM EDT BASIC METABOLIC PANEL STAT 11/02/2019 7:55 PM EDT FILM LIBRARY STORAGE ONLY CT ABDOMEN AND PELVIS STAT 11/01/2019 12:00 AM EDT documented in this encounter Results * Gold Tube HOLD (11/02/2019 7:55 PM EDT) Gold Hold Sample in lab. [facility] Blood specimen (specimen) Venous Draw / Unknown 11/02/2019 7:55 PM EDT 11/02/2019 8:03 PM EDT Cici Guan APRN CHEMISTRY ORDERABLES [facility] [place] [address] * Blue Tube HOLD (11/02/2019 7:55 PM EDT) Pathologist [facility] Blue Hold Sample in lab. [facility] Blood specimen (specimen) Venous Draw / Unknown 11/02/2019 7:55 PM EDT 11/02/2019 8:03 PM EDT Cici Guan APRN HEMATOLOGY ORDERABLE S Performing Organization Address City/[facility] Co de Phone Number [facility] [place] [address] * Differential, Automated (11/02/2019 7:55 PM EDT) [facility] Neutrophil % 56.9 % [facility] Neutrophil Absolute 2.87 1.70 - 6.10 x10(3)/[facility] Lymph % 26.8 % [facility] Lymphocytes Abs 1.4 0.9 - 3.2 x10(3)/[facility] Monocyte % 12.9 % [facility] Monocyte Abs 0.6 0.3 - 0.9 x10(3)/[facility] Eos % 2.2 % [facility] Eosinophils Abs 0.1 0.0 - 0.4 x10(3)/[facility] Basophil % 1.0 % [facility] Baso Absolute 0.0 0.0 - 0.1 x10(3)/[facility] Immature Gran % 0.20 % [facility] Comment: Immature granulocytes(IG's)percentage and absolute count will include metamyelocytes, myelocytes, and promyelocytes. Blood smears from CBCs yielding IG's will be scanned manually for concordance. If this scan disagrees with the automated IG or if promyelocytes are noted, a manual differential will be performed. Immature Gran Absolute 0.01 0.00 - 0.04 x10(3)/mcL [facility] Blood specimen (specimen) 11/02/2019 7:55 PM EDT 11/02/2019 8:02 PM EDT Narrative Resulting Agency Comment Spec In Lab Cici Guan INFORMATION CONSULTANT HEMATOLOGY ORDERABLE S [facility] [place] [address] * (ABNORMAL) Hemogram (11/02/2019 7:55 PM EDT) White Blood Cell 5.0 4.0 - 9.5 x10(3)/mc L [facility] Red Blood Cell 4.56 4.00 - 5.21 x10(6)/mc L [facility] Hemoglobin 14.6 11.7 - 15.5 gm/dL [facility] Hematocrit 43.5 35.7 - 45.8 % [facility] Mean Cell Volume 95.4(H) 82.6 - 94.4 fL [facility] Mean Cell Hemoglobin 32.0 27.1 - 32.0 pg [facility] Mean Cell Hemoglobin Concentration 33.6 31.7 - 35.0 gm/dL [facility] Platelet 163 145 - 357 x10(3)/mc L [facility] RDW Standard Deviation 45.1 37.0 - 46.0 [facility] RDW coefficient of variation 12.9 11.5 - 14.1 % [facility] Mean Platelet Volume 9.6 7.6 - 12.9 [facility] NRBC% auto 0.0 % [facility] NRBC Absolute 0.000 0.000 - 0.000 x10(3)/mc L [facility] Blood specimen (specimen) 11/02/2019 7:55 PM EDT 11/02/2019 8:02 PM EDT Narrative Resulting Agency Comment Spec In Lab Cici Guan APRN HEMATOLOGY ORDERABLE S Performing Organization Address [facility] Co de Phone Number [facility] [place] [address] * Lipase (11/02/2019 7:55 PM EDT) Pathologist [facility] Lipase 18 0 - 60 unit/L [facility] Blood specimen (specimen) 11/02/2019 7:55 PM EDT 11/02/2019 8:02 PM EDT Narrative Resulting Agency Comment Spec In Lab Cici Guan APRN CHEMISTRY ORDERABLES Performing Organization Address [facility] Phone Number [facility] [place] [address] * (ABNORMAL) Hepatic Function Panel (11/02/2019 7:55 PM EDT) Pathologist [facility] Protein, Total 6.9 6.1 - 8.0 gm/dL [facility] Albumin 4.2 3.2 - 5.2 gm/dL [facility] Aspartate Aminotransferase 41(H) 0 - 30 unit/L [facility] Alanine Aminotransferase 23 0 - 30 unit/L [facility] Alkaline Phosphatase 92 35 - 105 unit/L [facility] Bilirubin, Total 0.9 0.2 - 1.3 mg/dL [facility] Bilirubin, Direct 0.2 0.0 - 0.3 mg/dL [facility] Blood specimen (specimen) 11/02/2019 7:55 PM EDT 11/02/2019 8:02 PM EDT Narrative Resulting Agency Comment Spec In Lab Cici Guan APRN CHEMISTRY ORDERABLES Performing Organization Address [facility]/ZIP Co de Phone Number [facility] [place] [address] * (ABNORMAL) Basic Metabolic Panel (non-fasting) (11/02/2019 7:55 PM EDT) Glucose 76 65 - 199 mg/dL [facility] Comment:Diabetes: >=200 mg/d L plus symptoms Blood Urea Nitrogen 10 8 - 18 mg/dL [facility] Creatinine 0.52(L) 0.70 - 1.20 mg/dL [facility] Sodium 138 135 - 145 mmol/L [facility] Potassium 4.2 3.5 - 5.0 mmol/L [facility] Comment: Please note: ??Patients with WBC >100,000 may have falsely elevated Potassium levels. ??For accurate Potassium quantification in these patients send serum separator tube (gold top) for subsequent determinations. ??Contact the Clinical Chemistry Laboratory if there are any questions. Chloride 102 98 - 107 mmol/L [facility] Carbon Dioxide 21(L) 22 - 31 mmol/L [facility] Anion Gap 15 5 - 15 mmol/L [facility] Calcium 9.3 8.5 - 10.5 mg/dL [facility] Est Glomerular Filtration Rate 97 >=60 mL/min/1. 73 m?? [facility] Comment: The eGFR was calculated using the CKD-EPI equation. As with all creatinine based estimates of kidney function, eGFR values calculated with the CKD-EPI equation are not accurate in patients with acute kidney failure, extremes of body mass or the acutely ill. [email or web address] eGFR 113 >=60 mL/min/1. 73 m?? [facility] Comment: The eGFR was calculated using the CKD-EPI equation. As with all creatinine based estimates of kidney function, eGFR values calculated with the CKD-EPI equation are not accurate in patients with acute kidney failure, extremes of body mass or the acutely ill. [email or web address] Blood specimen (specimen) 11/02/2019 7:55 PM EDT 11/02/2019 8:02 PM EDT Narrative Resulting Agency Comment Spec In Lab Cici Guna APRN CHEMISTRY ORDERABLES Performing Organization Address [facility] Co de Phone Number [facility] [place] [address] * Film Library- Storage Only CT Abdomen & Pelvis (11/01/2019 12:00 AM EDT) Narrative [facility] - 11/02/2019 11:38 PM EDT This exam is auto-finalizing. It's purpose is for storage only. Geovanny Phillips MD IMG FILM LIBRARY ORD ERABLES Performing Organization Address [facility] Co de Phone Number [place], [place] documented in this encounter Visit Diagnoses Diagnosis Left lower quadrant abdominal pain- Primary documented in this encounter Care Teams Glacing Machine Tender Relationship Specialty Start Date End Date Rico Aburto MD [address] [place] [address] PCP - General 08/26/11 09/14/21 documented as of this encounter
--- OUTSIDE RECORDS SUMMARY | 2024-01-11 15:28 | XMS_ITS | Encounter Summary ---
Author Organization Formerly [facility], Later [facility] Address [facility] [place] [address] Care Team Providers Care Geothermal Powerplant Mechanic Helper Name Role Phone Rico Aburto MD Primary Care Provider [phone] Encounter Details Date Type Department Care Team (Latest Contact Info) Description 10/04/2015 12:15 AM EDT - 10/04/2015 11:59 PM EDT Hospital Encounter [place] [address] Janice Calle MD [facility] [place] [address] Pain Discharge Disposition: Home Social History Tobacco [...] Comments FILM LIBRARY STORAGE ONLY MAMMO Routine 10/04/2015 12:15 AM EDT Pain documented in this encounter Results * Film Library- Storage Only Mammo (10/04/2015 12:15 AM EDT) Narrative [facility] - 04/15/2016 2:40 PM EST This exam is for storage only and is auto-finalizing. Janice Calle MD IMG FILM LIBRARY O RDERABLES Performing Organization Address City/State/[facility] [[email or web address]] Co de Phone Number [place], [place] documented in this encounter Visit Diagnoses Diagnosis Pain Generalized pain documented in this encounter Care Teams Geothermal Powerplant Mechanic Helper Relationship Specialty Start Date End Date Rico Aburto MD [address] [place] [address] PCP - General 08/26/11 09/14/21 documented as of this encounter
--- OUTSIDE RECORDS SUMMARY | 2024-01-11 15:28 | XMS_ITS | Encounter Summary ---
[place] [address] Care Team Providers Care Sales Operations Coordinator Name Role Phone Rico Aburto MD Primary Care Provider [phone] Encounter Details Date Type Department Care Team (Latest Contact Info) Description 05/01/2016 9:42 AM EST - 05/01/2016 11:10 AM [facility] Hospital Encounter [place] [address] Rico Martinez MD [facility] [place] [address] Abnormal mammogram Discharge Disposition: Home Social History [...] Name Priority Date/Time Associated Diagnosis Comments MAMMO 2D DIGITAL DIAG VIRAL WITH CAD LEFT Routine 05/01/2016 11:00 AM EST Abnormal mammogram documented in this encounter Results * Mammo Diag Viral Left (05/01/2016 11:00 AM EST) Anatomical Region Laterality Modality Breast Left Mammography Impressions 05/01/2016 1:33 PM EST Impression: Stable benign-appearing well-circumscribed mass [...] Finding-short interval follow-up or continued surveillance mammography Narrative 05/01/2016 1:33 PM EST Examination: Diagnostic left breast mammogram and left BREAST ULTRASOUND Indication: Probably benign left breast mass, 6 month follow-up for probably benign Category 3. Technique: 2-D and 3-D viral synthesis left LM, MLO, X CCL, CC, [...] lesion, abnormal acoustical shadowing, or cyst. ? Rico Martinez MD IMG MAMMO ORDERABLES documented in this encounter Visit Diagnoses Diagnosis Abnormal mammogram Abnormal mammogram, unspecified documented in this encounter Care Teams Sales Operations Coordinator Relationship Specialty Start Date End Date Rico Aburto MD [address] [place] [id number] PCP - General 08/26/11 09/14/21 documented as of this encounter
--- OUTSIDE RECORDS SUMMARY | 2024-01-11 15:28 | XMS_ITS | Encounter Summary ---
Author Organization [facility] Address [facility] [place] [address] Care Team Providers Care Photo Technician Name Role Phone Rico Aburto MD Primary Care Provider [phone] Reason for Visit * Auth/Cert Specialty Diagnoses [...] Expiration Date Visits Re quested Visits Authorized [id number] 1 1 Encounter Details Date Type Department Care Team (Latest Contact Info) Description 11/20/2019 2:59 PM EDT - 11/20/2019 5:31 PM EDT Hospital Encounter [place] [address] Yoni Tate MD [facility] [place] [address] Discharge Disposition: Home Social History Tobacco Use [...] Care Everywhere. * EGD (Upper Endoscopy): Post-op (Tongan) * Colonoscopy: Post-op (Tongan) documented in this encounter Medications at Time [...] Tate MD - 11/20/2019 4:50 PM EDT [facility] Operative Note Patient Name: Amalia Moreira : [id number] MR#: [id number] Case Date: 11/20/2019 Surgeon: Surgeon(s) and Role: [...] Routine 11/20/2019 4:23 PM EDT Colonoscopy, Remv Lesn, Snare ([id number]) 11/20/2019 3:45 PM EDT Encounter for screening for malignant neoplasm of colon - Encounter for general adult medical examination without abnormal findings Colonoscopy, Diagnostic ([id number]) 11/20/2019 3:45 PM EDT Encounter for screening for malignant neoplasm of colon - Encounter for general adult medical examination without abnormal findings Upper GI Endoscopy, Diagnostic ([id number]) 11/20/2019 3:45 PM EDT Encounter for screening for malignant neoplasm of colon - Encounter for general adult medical examination without abnormal findings UPPER GI ENDOSCOPY Routine 11/20/2019 3: 28 PM EDT COLONOSCOPY Routine 11/20/2019 3:26 PM EDT documented in this encounter Results * Specimen to Pathology (11/20/2019 4:33 PM EDT) AP Specimen 11/20/2019 4:33 PM EDT 11/20/2019 4:33 PM EDT Narrative [facility] - 11/20/2019 4:33 PM EDT Specimen requisition ordered. ??Separate Pathology report to follow Yoni Tate MD PATHOLOGY/CYTOLOGY O RDERABLES [facility] [place] [address] * Specimen to Pathology (11/20/2019 4:33 PM EDT) AP Specimen 11/20/2019 4:33 PM EDT 11/20/2019 4:33 PM EDT Narrative [facility] - 11/20/2019 4:33 PM EDT Specimen requisition ordered. ??Separate Pathology report to follow Yoni Tate MD PATHOLOGY/CYTOLOGY O [place] Performing Organization Address [facility] [place] [address] * Specimen to Pathology (11/20/2019 4:33 PM EDT) AP Specimen 11/20/2019 4:33 PM EDT 11/20/2019 4:33 PM EDT Narrative [facility] - 11/20/2019 4:33 PM EDT Specimen requisition ordered. ??Separate Pathology report to follow Yoni Tate MD PATHOLOGY/CYTOLOGY O [place] Performing Organization Address [facility] Co de Phone Number [facility] [place] [address] * Surgical Pathology Report (11/20/2019 4:23 PM EDT) Pathologist [facility] Final Diagnosis [id number] ? Location: 4T; EA08; A The signing [...] Rucker MD Verified: ??11/24/2019 ?Pathologist Performed at: ??-[facility] Dept. of Pathology, [place], [place] SPECIMEN(S) SUBMITTED A - transverse colon [...] labeled C1. ??MLL 11/24/2019 7:15 AM EDT [facility] GI Biopsy 11/20/2019 4:23 PM EDT 11/20/2019 4:23 PM EDT GI Biopsy 11/20/2019 4:23 PM EDT 11/20/2019 4:23 PM EDT GI Biopsy 11/20/2019 4:23 PM EDT 11/20/2019 4:23 PM EDT Yoni Tate MD PATHOLOGY/CYTOLOGY O RDERABLES [facility] [place] [address] * UPPER GI ENDOSCOPY (11/20/2019 3:28 PM EDT) UPPER GI ENDOSCOPY [facility] Endoscopy ___ Procedure Date: 11/20/2019 3:28 PM ? Patient Name: Amalia Moreira ? Date of : 1950 ? Age: 69 ? Order #: [id number] ? Instrument Name: [id number] ? ___ Procedure: ? Upper GI endoscopy Indications: ? Weight loss Providers: ? Evaristo Parker ? Magaly Abarca, NEL, Jossue ? Icelandic Referring MD: ? Medicines: ? Fentanyl 150 [...] * COLONOSCOPY (11/20/2019 3:26 PM EDT) COLONOSCOPY [facility] Endoscopy Procedure Date: 11/20/2019 3:26 PM ? Patient Name: Amalia Moreira ? Date of : 1950 ? Age: 69 ? Order #: [id number] ? Instrument Name: [id number] ? Procedure: ? Colonoscopy Indications: ? Weight [...] 3:20 PM EDT 100 mL/hr 100 mL/hr documented in [...] Comment: for colo)1631 (Given - Provider: Magaly López, RN) midazolam (PF) (VERSED) multi-dose injection (CANCELED) ONCE PRN, Starting on Wed11/20/19 at 1553, Until Wed11/20/19 at 1931, Intra-Operative (Intra-Procedure), Routine 1550 (Given - Provid er: Magaly López RN)1553 (Given - Provider: Magaly López RN)1557 (Given - Provider: Magaly López RN)1602 (Given - Provider: Magaly López, RN)1609 (Given - Provider: Magaly López RN - Comment: for colo)1631 (Given - Provider: Magaly López RN) documented in this encounter Care Teams Photo Technician Relationship Specialty Start Date End Date iRco Aburto MD [address] [place] [address] PCP - General 08/26/11 09/14/21 documented as of this encounter
--- OUTSIDE RECORDS SUMMARY | 2024-01-11 15:28 | XMS_ITS | Encounter Summary ---
Author Organization [facility] Address [facility] [place] [address] Care Team Providers Care Spring Salvage Worker Name Role Phone Rico Aburto MD Primary Care Provider [phone] Encounter Details Date Type Department Care Team (Latest Contact Info) Description 10/04/2015 - 10/04/2015 12:14 AM EDT Hospital Encounter [place] [address] Janice Calle MD [facility] [place] [address] Pain Discharge Disposition: Home Social History Tobacco [...] FILM LIBRARY STORAGE ONLY MAMMO Routine 10/04/2015 12:00 AM EDT Pain documented in this encounter Results * Film Library- Storage Only Mammo (10/04/2015 12:00 AM EDT) Narrative [facility] - 04/15/2016 2:13 PM EST This exam is for storage only and is auto-finalizing. Janice Calle MD IMG FILM LIBRARY O RDERABLES [place], [place] documented in this encounter Visit Diagnoses Diagnosis Pain Generalized pain documented in this encounter Care Teams Spring Salvage Worker Relationship Specialty Start Date End Date Rico Aburto MD [address] [place] [address] PCP - General 08/26/11 09/14/21 documented as of this encounter
--- OUTSIDE RECORDS SUMMARY | 2024-01-11 15:28 | XMS_ITS | Encounter Summary ---
[place] [address] Care Team Providers Care Inventory Administrator Name Role Phone Rico Aburto MD Primary Care Provider [phone] Encounter Details Date Type Department Care Team (Late st Contact Info) Description 11/13/2019 Telephone [place] [address] Annia Oviedo Social History Tobacco Use Types [...] encounter Miscellaneous Notes * Telephone Encounter - Annai Oviedo - 11/13/2019 8:31 AM EDT Amalia Moreira [id number] Diagnosis/Indication: EGD/ [place] 1. Have you ever had a/an Colonoscopy and Upper Endoscopy before? Yes: Date 12/21/13 If yes, did you have any problems with the procedure? No What type of sedation was used: IV Conscious Sedation 2. Do you take any Blood Thinners? No 3. Do you have a Pacemaker or Defibrillator device? No 4. Are you a diabetic? No 5. Do you have any Allergies to Eggs, Latex or Medications? Yes: SEE EDH 6. Do you take any Oral Iron Supplements (Including multi-vitamins)? Yes (Multivitamin) 7. Do you have a history of three or more abdominal surgeries? Yes 8. Have you had a problem with sedation or anesthesia? No 9. Do you have a c-pap machine or oxygen tank? Neither 10. Do you take prescription narcotic pain medications, including suboxone or methodone? No 11. Do you have a preference regarding the gender of your provider? No Preference 12. Is there any other information you would like to give us to aid in scheduling? No 13. Say to patient: You must have a responsible constitution party who will drive you to your procedure, stay [place] for the entire duration of your procedure, and drive you home from your procedure? *Please Verify the height and weight, and adjust if height and/or weight have changed* Estimated body mass index is 34.54 kg/m?? as calculated from the following: Height as of 11/08/19: 160 cm (5' 3). Weight as of 11/08/19: 88.5 kg (195 lb). Age:69 y.o. documented in this encounter Plan of Treatment Scheduled Procedures Name Priority Associated Diagnoses Date/Ti me EGD, UPPER GI ENDOSCOPY (WRV U 2.09) Esophageal varices without bleeding, unspecified esophageal varices type Portal vein thrombosis documented as of this encounter Visit Diagnoses Not on filedocumented in this encounter Care Teams Inventory Administrator Relationship Specialty Start Date End Date Rico Aburto MD [address] [place] [address] PCP - General 08/26/11 09/14/21 documented as of this encounter
--- OUTSIDE RECORDS SUMMARY | 2024-01-11 15:28 | XMS_ITS | Encounter Summary ---
[place] [address] Care Team Providers Care Metal Flow Coordinator Name Role Phone Rico Aburto MD Primary Care Provider [phone] Encounter Details Date Type Department Care Team (Latest Contact Info) Description 12/21/2013 6:44 AM EDT - 12/21/2013 6:45 PM EDT Hospital Encounter [place] [address] Kenrick Gonzalez MD [facility] [place] [address] Discharge Disposition: Home Social History Tobacco Use [...] Sign Reading Time Taken Comments Blood Pressure 154/63 12/21/2013 8:32 AM EDT Pulse 84 12/21/2013 8:32 AM EDT Temperature 36.4 ??C (97.5 ??F) 12/21/2013 7:19 AM ED T Respiratory Rate 16 12/21/2013 8:32 AM EDT Oxygen Saturation 95% 12/21/2013 8:32 AM EDT Inhaled Oxygen Concentration - - Weight - - Height - - Body Mass Index - - documented in this encounter Discharge Instructions * Discharge Instructions* Katharine Carmona, RN - 12/21/2013 8:33 AM EDT UPPER GI ENDOSCOPY WHAT TO EXPECT AFTER THE PROCEDURE Medications You may have a mild sore throat. Ice chips, popsicles, over the counter throat lozenges or spray may help numb your throat. This procedure should not cause a fever. Call your healthcare provider or seek immediate medical attention if: You have trouble swallowing. You have belly pain. Your stools are black or tarlike or have streaks of blood. You are sick to your stomach or cannot keep fluids down. Watch closely for changes in your health, and be sure to contact your doctor IF Your throat still hurts after a day or two You do not get better as expected. Colonoscopy and polyp removal What to expect after the procedure You may feel a little more gassy or bloated than usual, this is normal. You should expect the return of normal bowel function in the next 2 to 3 days. Because some polyps were removed, you may see a little blood with the next few bowel movements, this should be a small amount ( less than a few tablespoons) and will resolve on it's own. ACTIVITY Because of the sedation that you received Your judgement and reaction time are effected ?? Go home and rest for the remainder for the day. You may resume your normal activities tomorrow ?? Change from one position to the next slowly because you may lose your balance unexpectedly. ?? Be careful on stairs, as you may be unsteady. FOR THE NEXT 24 HRS ?? DO NOT DRIVE OR OPERATE MACHINERY ?? DO NOT DRINK ALCOHOLIC BEVERAGES ?? DO NOT SIGN LEGAL DOCUMENTS ?? If you are a smoker: DO NOT SMOKE WHILE YOU ARE ALONE Diet ?? Start by eating small portions of foods that ordinarily will not upset your stomach, avoid gas producing foods for the next few days. ?? Be gentle with what you choose to start with ?? A soft diet may be helpful for the next 3 days as this may help to keep your stools soft. ?? Drink plenty of fluids ( unless your doctor has told you not to). Medicines Avoid medicines that influence the way your blood clots for the next week. These would include anti-inflammatory medicine, such as ibuprofen( Advil, Motrin) and naproxen ( Aleve). If you need something for discomfort, Tylenol (Acetaminophen) is safe if used as directed. Your Doctor will tell you when to restart your prescribed blood thinners The IV site-- slight tenderness, or redness is normal, you can use warm compresses if you get concerned. If the tenderness +/or redness increases or foul drainage and a red streak occurs, please contact your PCP immediately. When should you call for help? Call 911 anytime you think you may need emergency care. For example If you pass out (loss of consciousness) If you pass maroon or bloody stools If you have severe belly pain Call your healthcare provider or seek immediate medical care if: Your stools are black or tar like Your stools have streaks of blood that is more pronounced with each BM You have belly pain, or your belly is swollen and firm You vomit You have a fever You are very dizzy Watch closely for changes in your health, and be sure to contact your doctor if you have any problems. Your Doctor will let you know when you will need your next colonoscopy. The results of your test and your risk for colorectal cancer will help your doctor decide how often you need to be checked. Wednesday-Wednesday Clinic [phone] 8a-5p Same Day Endo [phone] 7a-8p Otherwise contact [phone] and ask to speak to the erection shop supervisor honey blender Follow up care is a ventura part of your treatment and safety. Be sure to make and go to all appointments, and call your doctor if you are having problems. Discharge instructions reviewed with patient who expresses understanding * Attachments The following attachments cannot be sent through Care Everywhere. * EGD (UPPER ENDOSCOPY) : POST-OP (FIJIAN) * POLYPS (FIJIAN) documented in this encounter Medications at Time [...] as of this encounter H&P Notes * Kenrick Gonzalez MD - 12/21/2013 7:27 AM EDT Gastroenterology and Hepatology Pre-Procedure History and Physical Exam Procedure: Colonoscopy: EGD Indication: colo/EGD/capsule Patient Active Problem List Diagnosis Code ??? Abdominal pain 789.00 ??? Hypothyroid 244.9 ??? 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 Hallucination, drug-induced 292.12, E980.5 ??? Abdominal pain, right upper quadrant 789.01 EXAM: HEENT: Airway examined, oropharynx clear LUNGS: Clear to auscultation HEART: Regular rate and rhythm, normal S1, S2 ABDOMEN: Normal bowel sounds, soft, non tender, non distended, A/P Proceed with the planned endoscopic procedure. Risks and benefits of the procedure explained to the patient. Consent signed. documented in this encounter Miscellaneous Notes * Miscellaneous - Provider, Scanning - 12/21/2013 9:24 PM EDT * Miscellaneous - Provider, Scanning - 12/21/2013 4:23 PM EDT documented in this encounter Plan of Treatment Scheduled Procedures Name Priority Associated Diagnoses Date/Ti me EGD, UPPER GI ENDOSCOPY (WRV U 2.09) Esophageal varices without bleeding, unspecified esophageal varices type Portal vein thrombosis documented as of this encounter Procedures Procedure Name Priority Date/Time Associated Diagnosis Comments VIDEO CAPSULE ENDOSCOPY Routine 12/21/2013 12:47 PM EDT SURGICAL PATHOLOGY REPORT Routine 12/21/2013 8:27 AM EDT SPECIMEN TO PATHOLOGY Routine 12/21/2013 8:27 AM EDT VIDEO CAPSULE ENDOSCOPY (WRVU 2.24) 12/21/2013 7:45 AM EDT abd.pain, ? GI bleed (local) COLONOSCOPY, DIAGNOSTIC (WRVU 3.26) 12/21/2013 7:45 AM EDT abd.pain, ? GI bleed (local) EGD, UPPER GI ENDOSCOPY (WRVU 2.09) 12/21/2013 7:45 AM EDT abd.pain, ? GI bleed (local) UPPER GI ENDOSCOPY Routine 12/21/2013 7: 21 AM EDT COLONOSCOPY Routine 12/21/2013 7:20 AM EDT documented in this encounter Results * VIDEO CAPSULE ENDOSCOPY (12/21/2013 12:47 PM EDT) VIDEO CAPSULE ENDOSCOPY [facility] Endoscopy Patient Name: Amalia Angelica ? Procedure Date: 12/21/2013 12:47 PM ? Date of : 1950 ? Age: 63 ? Order #: [id number] ? Procedure: ? Video capsule endoscopy Indications: ? GI bleeding source not documented by ? previous EGD and colonoscopy, ? abdominal pain Providers: ? Kenrick Gonzalez MD, Luis Alfredo Lombardi, ? Referring : ?Rico Aburto MD, Luis Alfredo Lombardi, ? Rico COLON MD Medicines: ? None Complications: ? No immediate complications. Procedure: ? The SensorArray was applied to the ? patient's abdomen with adhesive pads ? and connected to the DataRecorder ? around the waist. The DataRecorder ? was checked to ensure green light was ? flashing. The patient was then ? instructed to ingest the M2A capsule ? and provided a glass of water. This ? was accomplished without difficulty. ? The patient was then given ? instructions for eating and drinking ? and was instructed to periodically ? monitor the DataRecorder throughout ? the day to insure proper transmission. ? Approximately eight hours later the ? patient returned for removal of the ? SensorArray. ? Findings: ? The small bowel transit time was 3 hours and 40 ? minutes. ? The video capsule had previously been placed into the ? duodenum endoscopically, so no images from the ? esophagus or stomach are available. ? The duodenum was normal. ? Jejunum: There was fresh red blood seen at 20 ? minutes, proximal small bowel(jejunum) ? There was no actual bleeding site identified nor ? blood seen anywhere else in small bowel ? The ileum was normal. ? Impression: ?- Normal duodenum. ? - Normal ileum. ? Active bleeding from proximal jejunum Recommendation: ?Bleeding area can likely be reached ? with a push enteroscopy, plus/minus ? Spiruis ? Would perform enteroscopy this week ? Check Hgb ? __ Kenrick Gonzalez MD 12/24/2013 12:54 PM This report has been signed electronically. Number of Addenda: 0 Note Initiated On: 12/24/2013 12:47 PM PROVATION 12/21/2013 12:4 7 PM EDT Rico Aburto MD GENERAL SURGICAL ORD [facility] PROVATION * Surgical Pathology Report (12/21/2013 8:27 AM EDT) Final Diagnosis ? [facility] ? Provider: ?? KENRICK GONZALEZ ?Pt. Name: ?? ROBERT AMALIA Patrick ? Acc #: ?[id number] ?Pt. ? Col Date: ?? 12/21/2013 ?/Sex: ?1950,(63 years),Female ? Rec Date: ?? 12/21/2013 ?LOC: ?4T ? SURGICAL PATHOLOGY ? ---Pathologic Diagnosis--- ? Endoscopic biopsy - Hyperplastic polyp. ? CR-PX ? 12/22/13 ? AAS ? 12/22/13 Verified by: ? Grant Rucker MD ? Pathologist ? (Electronic Signature) ? The attending pathologist whose signature appears on this report has ? reviewed all diagnostic slides and has edited the gross and/or ? microscopic portion of the report in rendering the final pathologic ? diagnosis. ? ---Gross Description--- ? A - Labeled/Fixative : 6 mm polyp descending colon, formalin. ? Quantity/Size: Two, 0.5 and 0.6 cm. ? Tissue Description: Soft, polypoid pink-banuelos tissue. ? Sections/Process ing: (T1) ??ejr ? ---Clinical Information--- ? Specimen Submitted: ? A - 6 mm polyp descending colon ? Clinical History: ? Patient with polyp ? Clinical Diagnosis: ? Same 12/22/2013 1:33 PM EDT [facility] GI Biopsy 12/21/2013 8:27 AM EDT 12/21/2013 8:27 AM EDT Kenrick Gonzalez MD PATHOLOGY/CYTOLOGY [place] Performing Organization Address [facility] Co de Phone Number [facility] [place] [address] * Specimen to Pathology (surgical or derm) (12/21/2013 8:27 AM EDT) AP Specimen 12/21/2013 8:27 AM EDT 12/21/2013 8:27 AM EDT Narrative RASHAD GARCIA - 12/21/2013 8:27 AM EDT Specimen requisition ordered. ??Separate Pathology report to follow Kenrick Gonzalez MD PATHOLOGY/CYTOLOGY [place] Performing Organization Address [facility] Co de Phone Number RASHAD GARCIA * UPPER GI ENDOSCOPY (12/21/2013 7:21 AM EDT) UPPER GI ENDOSCOPY [facility] Endoscopy Patient Name: Amalia Moreira ? Procedure Date: 12/21/2013 7:21 AM ? Date of : 1950 ? Age: 63 ? Order #: [id number] ? Procedure: ? Upper GI endoscopy Indications: ? Epigastric abdominal pain, melena Providers: ? Kenrick Gonzalez MD, Luis Alfredo Lombardi, ? , Samantha Segundo RN, Amalia Muhammad, ? Shovel Log Loader Operator Referring MD: ? Medicines: ? Midazolam 4.5 mg IV, Fentanyl 225 ? micrograms IV, Diphenhydramine 50 mg ? IV Complications: ? No immediate complications. Procedure: ? Pre-Anesthesia Assessment: ? - ASA Grade Assessment: II - A ? patient with mild systemic disease. ? The procedure, indications, benefits, ? risks and alternatives were explained ? to the patient. Specifically ? discussed were potential ? complications including, but not ? limited to, bleeding, perforation, ? infection, missing a cancer, and ? adverse medication reactions. The ? Endoscope was introduced through the ? mouth, and advanced to the third part ? of duodenum. The patient tolerated ? the procedure well. The upper GI ? endoscopy was accomplished without ? difficulty. The patient tolerated the ? procedure well. ? Findings: ? The examined esophagus was normal. ? A small hiatus hernia was present from 36-40 cm and ? above this was a wide open Schatzki's ring ? The stomach was normal. ? The examined duodenum was normal. ? Upon completion of the procedure the scope was ? reintroduced with the capsule which was deployed into ? the third portion of the duodenum ? Impression: ?- Normal esophagus. ? - Hiatus hernia. ? - Normal stomach. ? - Normal examined duodenum. Recommendation: ?Await capsule results ? _ Kenrick Gonzalez MD 12/21/2013 8:10 AM This report has been signed electronically. Number of Addenda: 0 Note Initiated On: 12/21/2013 7:21 AM PROVATION 12/21/2013 7:21 AM EDT Unknown GENERAL SURGICAL ORD ERABLES PROVATION * COLONOSCOPY (12/21/2013 7:20 AM EDT) COLONOSCOPY [facility] Endoscopy Patient Name: Amalia Moreira ? Procedure Date: 12/21/2013 7:20 AM ? Date of : 1950 ? Age: 63 ? Order #: [id number] ? Procedure: ? Colonoscopy Indications: ? Abdominal pain, Melena, s/p right ? hemicolectomy for complicated ? appendicitis Providers: ? Kenrick Gonzalez MD, Luis Alfredo Lombardi, ? , Samantha Segundo RN, Amalia Muhammad, ? Shovel Log Loader Operator Referring MD: ? Medicines: ? Midazolam 1.5 mg IV, Fentanyl 25 ? micrograms IV Complications: ? No immediate complications. Procedure: ? Pre-Anesthesia Assessment: ? - ASA Grade Assessment: II - A ? patient with mild systemic disease. ? The procedure, indications, benefits, ? risks [...] the ? colonoscope was withdrawn. The ? colonoscopy was performed without ? difficulty. The patient tolerated the ? procedure well. The quality of the ? bowel preparation was excellent. ? Findings: ? S/p extended right hemicolectomy with normal ? anastomosis ? A sessile polyp was found in the descending colon. ? The polyp was 6 mm in size. The polyp was removed ? with a cold snare. Resection and retrieval were ? complete. ? The terminal ileum appeared normal. ? Multiple small and large-mouthed diverticula were ? found in the sigmoid colon and in the descending ? colon. ? Internal hemorrhoids were found during retroflexion ? and were small. ? Impression: ?- One 6 mm polyp in the descending ? colon. Resected and retrieved. ? - The examined portion of the ileum ? was normal. ? - Diverticulosis in the sigmoid colon ? and in the descending colon. ? - Internal hemorrhoids. Recommendation: ?- Await pathology results. ? _ Kenrick Gonzalez MD 12/21/2013 8:26 AM This report has been signed electronically. Number of Addenda: 0 Note Initiated On: 12/21/2013 7:20 AM PROVATION 12/21/2013 7:20 AM EDT Unknown GENERAL SURGICAL ORD ERABLES PROVATION documented in this encounter Visit Diagnoses Not on filedocumented in this encounter Administered Medications Inactive Administered Medications - up to 3 most recent administrations Medication Order MAR Action Action Date Dose Rate Site lactated ringers infusion 30 mL/hr, Intravenous, CONTINUOUS, Starting on Lorri 12/21/13 at 0730, Until Wed12/21/13 at 0928, Endoscopy (Day of Procedure) New Bag 12/21/2013 7:30 AM EDT 30 mL/hr 30 mL/hr documented in this encounter Active and Recently Administered Medications Times are shown in EDT. Continuous Medication Order 12/19/2013 12/20/2013 12/21/2013 lactated ringers infusion (CANCELED) 30 mL/hr, Intravenous, CONTINUOUS, Starting on Lorri 8 at 0730, Until Lorri 12/21/13 at 0928, Endoscopy (Day of Procedure) 0730 (New Bag - Prov ider: Huma Ferrera RN) PRN Medication Order 12/19/2013 12/20/2013 12/21/2013 diphenhydrAMINE (BENADRYL) injection (CANCELED) ONCE PRN, Starting on Lorri 12/21/13 at 0748, Until Lorri 12/21/13 at 0928, Itching, Intra-Operative (Intra-Procedure), Routine 0748 (Given - Provid er: Samantha Segundo RN)0752 (Given - Provider: Samantha Segundo RN) fentaNYL 50mcg/mL injection (CANCELED) ONCE PRN, Starting on Lorri 12/21/13 at 0748, Until Lorri 12/21/13 at 0928, Pain, Intra-Operative (Intra-Procedure), Routine 0748 (Given - Provid er: Samantha Segundo RN)0752 (Given - Provider: Samantha Segundo RN)0756 (Given - Provider: Samantha Segundo RN)0759 (Given - Provider: Samantha Segundo RN)0802 (Given - Provider: Samantha Segundo RN)0810 (Given - Provider: Samantha Segundo RN) midazolam (PF) (VERSED) 1 mg/mL injection (CANCELED) ONCE PRN, Starting on Lorri 8 at 0748, Until Lorri 12/21/13 at 0928, Sleep, Intra-Operative (Intra-Procedure), Routine 0748 (Given - Provid er: Samantha Segundo RN)0752 (Given - Provider: Samantha Segundo RN)0756 (Given - Provider: Samantha Segundo RN)0759 (Given - Provider: Samantha Segundo RN)0802 (Given - Provider: Samantha Segundo RN)0810 (Given - Provider: Samatnha Segundo RN) documented in this encounter Care Teams Metal Flow Coordinator Relationship Specialty Start Date End Date Rico Aburto MD [address] [place] [address] PCP - General 08/26/11 09/14/21 documented as of this encounter
--- OUTSIDE RECORDS SUMMARY | 2024-01-11 15:28 | XMS_ITS | Encounter Summary ---
[place] [address] Care Team Providers Care Forestry Aide Name Role Phone Rico Aburto MD Primary Care Provider [phone] Encounter Details Date Type Department Care Team (Late st Contact Info) Description 12/21/2013 7:30 AM EDT - 12/21/2013 8:30 AM EDT Surgery [place] [address] Kenrick Gonzalez MD [facility] [place] [address] EGD, UPPER GI ENDOSCOPY (WRVU 2.09) Social [...] you need to be checked. Wednesday-Wednesday Clinic [phone] 8a-5p Same Day Endo [phone] 7a-8p Otherwise contact [phone] and ask to speak to the care program resident salesperson burial needs Follow up care is a [place] part of your treatment and safety. Be sure to make and go to all appointments, and call your doctor if you are having problems. Discharge instructions reviewed with patient who expresses understanding * Attachments The following attachments cannot be sent through Care Everywhere. * EGD (UPPER ENDOSCOPY) : POST-OP ([place]) * POLYPS ([place]) documented in this encounter Medications at Time [...] (12/21/2013 12:47 PM EDT) VIDEO CAPSULE ENDOSCOPY [facility] Endoscopy Patient Name: Amalia [place] ? Procedure Date: 12/21/2013 12:47 PM ? Date of : 1950 ? Age: 63 ? Order #: [id number] ? Procedure: ? Video capsule endoscopy Indications: [...] EDT Rico Aburto MD GENERAL SURGICAL ORD [facility] PROVATION * Surgical Pathology Report (12/21/2013 8:27 AM EDT) Final Diagnosis ? [facility] ? Provider: ?? KENRICK GONZALEZ ?Pt. Name: ?? CARROLL MOREIRAAN Patrick ? Acc #: ?[id number] ?Pt. ? Col Date: ?? 12/21/2013 ?/Sex: [...] Diagnosis: ? Same 12/22/2013 1:33 PM EDT [facility] GI Biopsy 12/21/2013 8:27 AM EDT 12/21/2013 8:27 AM EDT Kenrick Gonzalez MD PATHOLOGY/CYTOLOGY [place] Performing Organization Address [facility] Co de Phone Number [facility] [place] [address] * Specimen to Pathology (surgical or derm) (12/21/2013 8:27 AM EDT) AP Specimen 12/21/2013 8:27 AM EDT 12/21/2013 8:27 AM EDT Narrative RASHAD GARCIA - 12/21/2013 8:27 AM EDT Specimen requisition ordered. ??Separate Pathology report to follow Kenrick Gonzalez MD PATHOLOGY/CYTOLOGY Irene GERMAN Performing Organization Address [facility] Co de Phone Number RASHAD GARCIA * UPPER GI ENDOSCOPY (12/21/2013 7:21 AM EDT) UPPER GI ENDOSCOPY [facility] Endoscopy Patient Name: Amalia Moreira ? Procedure Date: 12/21/2013 7:21 AM ? Date of : 1950 ? Age: 63 ? Order #: [id number] ? Procedure: ? Upper GI endoscopy Indications: ? Epigastric abdominal pain, melena Providers: ? Kenrick Gonzalez MD, Luis Alfredo Lombardi, ? , Samantha Segundo RN, Amalia Muhammad, ? Shipping Technician Referring MD: ? Medicines: ? Midazolam 4.5 [...] * COLONOSCOPY (12/21/2013 7:20 AM EDT) COLONOSCOPY [facility] Endoscopy Patient Name: Amalia Moreira ? Procedure Date: 12/21/2013 7:20 AM ? Date of : 1950 ? Age: 63 ? Order #: [id number] ? Procedure: ? Colonoscopy Indications: ? Abdominal pain, Melena, s/p right ? hemicolectomy for complicated ? appendicitis Providers: ? Kenrick Gonzalez MD, Luis Alfredo Lombardi, ? , Samantha Segundo RN, Amalia Muhammad, ? Shipping Technician Referring MD: ? Medicines: ? Midazolam 1.5 [...] MAR Action Action Date Dose Rate Site diphenhydrAMINE (BENADRYL) injection ONCE PRN, Starting on Wed12/21/13 at 0748, Until Wed12/21/13 at 0928, Itching, Intra-Operative (Intra-Procedure), Routine Given 12/21/2013 7:52 AM EDT 25 mg Given 12/21/2013 7:48 AM EDT 25 mg fentaNYL 50mcg/mL injection ONCE PRN, Starting on Lorri 12/21/13 at 0748, Until Lorri 12/21/13 at 0928, Pain, Intra-Operative (Intra-Procedure), Routine Given 12/21/2013 8:10 AM EDT 2 5 mcg Given 12/21/2013 8:02 AM EDT 25 mcg Given 12/21/2013 7:59 AM EDT 50 mcg lactated ringers infusion 30 mL/hr, Intravenous, CONTINUOUS, Starting on Lorri 12/21/13 at 0730, Until Lorri 12/21/13 at 0928, Endoscopy (Day of Procedure) New Bag 12/21/2013 7:30 AM EDT 30 mL/hr 30 mL/hr midazolam (PF) (VERSED) 1 mg/mL injection ONCE PRN, Starting on Lorri 12/21/13 at 0748, Until Lorri 12/21/13 at 0928, Sleep, Intra-Operative (Intra-Procedure), Routine Given 12/21/2013 8:10 AM EDT 1 mg Given 12/21/2013 8:02 AM EDT 0.5 mg Given 12/21/2013 7:59 AM EDT 1 mg documented in this encounter Active and Recently Administered Medications Times are shown in EDT. Continuous Medication Order 12/19/2013 12/20/2013 12/21/2013 lactated ringers infusion (CANCELED) 30 mL/hr, Intravenous, CONTINUOUS, Starting on Lorri 12/21/13 at 0730, Until Lorri 12/21/13 at 0928, Endoscopy (Day of Procedure) 0730 (New Bag - Prov ider: Huma Ferrera RN) PRN Medication Order 12/19/2013 12/20/2013 12/21/2013 diphenhydrAMINE (BENADRYL) injection (CANCELED) ONCE PRN, Starting on Lorri 12/21/13 at 0748, Until Lorri 12/21/13 at 0928, Itching, Intra-Operative (Intra-Procedure), Routine 0748 (Given - Provid er: Samantha S Sanya, RN)0752 (Given - Provider: Samantha Segundo RN) fentaNYL 50mcg/mL injection (CANCELED) ONCE PRN, Starting on Lorri 8 at 0748, Until Lorri 8 at 0928, Pain, Intra-Operative (Intra-Procedure), Routine 0748 [...] RN)0810 (Given - Provider: Samantha Segundo RN) documented in this encounter Care Teams Forestry Aide Relationship Specialty Start Date End Date Rico Aburto MD [address] [place] [address] PCP - General 08/26/11 09/14/21 documented as of this encounter
--- OUTSIDE RECORDS SUMMARY | 2024-01-11 15:28 | XMS_ITS | Encounter Summary ---
[place] [address] Care Team Providers Care Java Web Developer Name Role Phone Rico Aburto MD Primary Care Provider [phone] Encounter Details Date Type Department Care Team (Late st Contact Info) Description 11/09/2019 Telephone [place] [address] Annia Oviedo Social History Tobacco Use Types [...] on filedocumented in this encounter Care Teams Java Web Developer Relationship Specialty Start Date End Date Rico Aburto MD [address] [place] [address] PCP - General 08/26/11 09/14/21 documented as of this encounter
--- OUTSIDE RECORDS SUMMARY | 2024-01-11 15:28 | XMS_ITS | Encounter Summary ---
[place] [address] Care Team Providers Care Director Cardiology Name Role Phone Rico Aburto MD Primary Care Provider [phone] Encounter Details Date Type Department Care Team (Latest Contact Info) Description 09/22/2011 11:51 AM EDT - 09/22/2011 4:00 PM EDT Hospital Encounter [place] [address] Kenrick Gonzalez MD [facility] [place] [address] Discharge Disposition: Home Social History Tobacco Use [...] Sign Reading Time Taken Comments Blood Pressure 122/54 09/22/2011 2:10 PM EDT Pulse 81 09/22/2011 2:10 PM EDT Temperature 36.5 ??C (97.7 ??F) 09/22/2011 12:35 PM E DT Respiratory Rate 16 09/22/2011 2:10 PM EDT Oxygen Saturation 94% 09/22/2011 2:10 PM EDT Inhaled Oxygen Concentration - - Weight - - Height - - Body Mass Index - - documented in this encounter Discharge Instructions * Discharge Instructions* Bari Chung RN - 09/22/2011 2:11 PM EDT You may have received medication before and/or during your procedure which effects judgement and reaction time. Do not drive, operate machinery, drink alcoholic beverages, or make important decisions for 24 hours. Be careful on stairs, as you may be unsteady on your feet. You may eat a regular diet as tolerated. Do not smoke if you are alone. IV site -- slight redness or tenderness is normal. You may use a warm compress. If tenderness and redness increases or foul drainage occurs please contact your M.D. Please call [phone] before 5 pm with problems, questions or concerns. After 5pm call [phone] and ask to speak with the dog breeder sandstone splitter. Discharge instructions reviewed with patient who expresses understanding. * Patient Instructions* Kenrick Gonzalez MD - 09/22/2011 1:22 PM EDT Please see Recommendations in the Provation procedure report which is documented in the procedural note in E-[facility]. * Attachments The following attachments cannot be sent through Care Everywhere. * COLONOSCOPY: WHAT TO EXPECT AT HOME (KAZAKH) * UPPER GI ENDOSCOPY: WHAT TO EXPECT AT HOME (KAZAKH) documented in this encounter Medications at Time [...] H&P Notes * Kenrick Gonzalez MD - 09/22/2011 1:20 PM EDT Gastroenterology and Hepatology Pre-Procedure History and Physical Exam Procedure: colo/EGD Indication: r/o varices, screen Patient Active Problem List Diagnoses Code ??? Abdominal pain 789.00AP ??? Hypothyroid 244.9AR ??? 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 Hallucination, drug-induced 292.12P ??? Abdominal pain, right upper quadrant 789.01 EXAM: HEENT: Airway examined, oropharynx clear LUNGS: Clear to auscultation HEART: Regular rate and rhythm, normal S1, S2 ABDOMEN: Normal bowel sounds, soft, non tender, non distended, A/P Proceed with colo/EGD Risks and benefits of the procedure explained to the patient. Consent signed. documented in this encounter Miscellaneous Notes * Miscellaneous - Provider, Scanning - 09/23/2011 3:57 AM EDT * Miscellaneous - Provider, Scanning - 09/22/2011 1:27 PM EDT documented in this encounter Plan of Treatment Scheduled Procedures Name Priority Associated Diagnoses Date/Ti me EGD, UPPER GI ENDOSCOPY (WRV U 2.09) Esophageal varices without bleeding, unspecified esophageal varices type Portal vein thrombosis documented as of this encounter Procedures Procedure Name Priority Date/Time Associated Diagnosis Comments UPPER GI ENDOSCOPY 09/22/2011 1: 27 PM EDT Portal vein thrombosis Colon cancer screening COLONOSCOPY, DIAGNOSTIC (WRVU 3.26) 09/22/2011 1:27 PM EDT Portal vein thrombosis Colon cancer screening COLONOSCOPY Routine 09/22/2011 1:23 PM EDT UPPER GI ENDOSCOPY Routine 09/22/2011 1: 22 PM EDT documented in this encounter Results * COLONOSCOPY (09/22/2011 1:23 PM EDT) COLONOSCOPY [facility] Endoscopy Patient Name: Amalia Moreira ? Procedure Date: 09/22/2011 1:23 PM ? Date of : 1950 ? Age: 60 ? Order #: [id number] ? Procedure: ? Colonoscopy Indications: ? Screening for colorectal malignant ? neoplasm, s/p right hemicolectomy for ? appendicitis complicated Providers: ? Kenrick Gonzalez MD, Rene Knox, ? RN, Eliana White, Operations Agent Referring : ?Rico Aburto MD Medicines: ? Midazolam 4 mg IV, Fentanyl 150 ? micrograms IV Complications: ? No immediate [...] The Colonoscope was inserted in the ? and under direct visualization, ? advanced to. Careful inspection was ? made as the colonoscope was ? withdrawn. The colonoscopy was ? performed without difficulty. The ? patient tolerated the procedure well. ? The quality of the bowel preparation ? was excellent. ? Findings: ? S./p right hemicolectomy with normal ileo-colonic ? anastomosisMultiple small-mouthed diverticula were ? found in the sigmoid colon and in the descending ? colon. The terminal ileum appeared normal. Internal ? hemorrhoids were found during retroflexion and were ? small. ? Impression: ?- Diverticulosis in the sigmoid colon ? and in the descending colon. ? - The examined portion of the ileum ? was normal. ? - Internal hemorrhoids. Kenrick Gonzalez MD 09/22/2011 1:52 PM ? Number of Addenda: 0 Note Initiated On: 09/22/2011 1:23 PM PROVATION 09/22/2011 1:23 PM EDT Rico Aburto MD GENERAL SURGICAL ORD ERABLES PROVATION * UPPER GI ENDOSCOPY (09/22/2011 1:22 PM EDT) Pathologist [facility] UPPER GI ENDOSCOPY [facility] Endoscopy Patient Name: Amalia Moreira ? Procedure Date: 09/22/2011 1:22 PM ? Date of : 1950 ? Age: 60 ? Order #: [id number] ? Procedure: ? Upper GI endoscopy Indications: ? pt with portal vein thrombosis r/o ? varices Providers: ? Kenrick Gonzalez MD, Rene Knox, ? RN, Eliana White, Operations Agent Referring : ?Rico Aburto MD Medicines: ? Midazolam 3 mg IV, Fentanyl 100 ? micrograms IV Complications: ? No immediate [...] ? procedure well. ? Findings: ? The esophagus was normal. A medium-sized hiatus ? hernia was present from 36-40 cm. Above this was a ? nonobstructive Schatzki's ring ? No varicesThe stomach was normal. No gastric ? varicesThe examined duodenum was normal. ? Impression: ?- Normal esophagus. ? - Normal stomach. ? - Normal examined duodenum. ? No varices present _ Kenrick Gonzalez MD 09/22/2011 2:03 PM ? Number of Addenda: 0 Note Initiated On: 09/22/2011 1:22 PM PROVATION 09/22/2011 1:22 PM EDT Rico Aburto MD GENERAL SURGICAL ORD ERABLES PROVATION documented in this encounter Visit Diagnoses Not on filedocumented in this encounter Administered Medications Inactive Administered Medications - up to 3 most recent administrations Medication Order MAR Action Action Date Dose Rate Site sodium chloride 0.9% infusion 50 mL/hr, Intravenous, CONTINUOUS, Starting on Wed09/22/11 at 1245, Until 09/22/11 at 1800, Endoscopy (Day of Procedure) New Bag 09/22/2011 12:45 PM EDT 50 mL/hr 50 mL/hr documented in this encounter Active and Recently Administered Medications Times are shown in EDT. Continuous Medication Order 09/20/2011 09/21/2011 09/22/2011 sodium chloride 0.9% infusion (CANCELED) 50 mL/hr, Intravenous, CONTINUOUS, Starting on 09/22/11 at 1245, Until 09/22/11 at 1800, Endoscopy (Day of Procedure) 1245 (New Bag - Prov ider: Brannon Ang RN) PRN Medication Order 09/20/2011 09/21/2011 09/22/2011 fentaNYL 50mcg/mL injection (CANCELED) ONCE PRN, Starting on 09/22/11 at 1328, Until 09/22/11 at 1800, Pain, Intra-Operative (Intra-Procedure), Routine 1328 (Given - Provid er: Rene Knox RN) fentaNYL 50mcg/mL injection (CANCELED) Intravenous, Administer over 1 Hours, ONCE PRN, Starting on 09/22/11 at 1332, Until 09/22/11 at 1800, Pain, once, Intra-Operative (Intra-Procedure), Routine 1332 (Given - Provid er: Rene Knox RN) fentaNYL 50mcg/mL injection (CANCELED) Intravenous, Administer over 1 Hours, ONCE PRN, Starting on 09/22/11 at 1335, Until 09/22/11 at 1800, Pain, once, Intra-Operative (Intra-Procedure), Routine 1335 (Given - Provid er: Rene Knox RN) fentaNYL 50mcg/mL injection (CANCELED) Intravenous, Administer over 1 Hours, ONCE PRN, Starting on 09/22/11 at 1352, Until 09/21/12 at 1800, Pain, once, Intra-Operative (Intra-Procedure), Routine 1352 (Given - Provid er: Rene Knox RN) fentaNYL 50mcg/mL injection (CANCELED) Intravenous, Administer over 1 Hours, ONCE PRN, Starting on 09/22/11 at 1355, Until 09/22/11 at 1800, Pain, once, Intra-Operative (Intra-Procedure), Routine 1355 (Given - Provid er: Rene Knox RN) midazolam (VERSED) injection (CANCELED) ONCE PRN, Starting on 09/22/11 at 1328, Until 09/22/11 at 1800, Sleep, Intra-Operative (Intra-Procedure), Routine 1328 (Given - Provid er: Reen Knox RN) midazolam (VERSED) injection (CANCELED) Intravenous, ONCE PRN, Starting on 09/22/11 at 1332, Until 09/22/11 at 1800, Sleep, Endoscopy (Intra-Procedure), Routine 1332 (Given - Provid er: Rene Knox RN)1335 (Given - Provider: Rene Knox RN) midazolam (VERSED) injection (CANCELED) Intravenous, ONCE PRN, Starting on 09/22/11 at 1352, Until 09/22/11 at 1800, Sleep, Endoscopy (Intra-Procedure), Routine 1352 (Given - Provid er: Rene Knox RN) midazolam (VERSED) injection (CANCELED) Intravenous, ONCE PRN, Starting on 09/22/11 at 1354, Until 09/22/11 at 1800, Sleep, Endoscopy (Intra-Procedure), Routine 1354 (Given - Provid er: Rene Knox RN) documented in this encounter Care Teams Director Cardiology Relationship Specialty Start Date End Date Rico Aburto MD [address] [place] [id number] PCP - General 08/26/11 09/14/21 documented as of this encounter
--- OUTSIDE RECORDS SUMMARY | 2024-01-11 15:28 | XMS_ITS | Encounter Summary ---
[place] [address] Care Team Providers Care Administrative Processor Name Role Phone Rico Aburto MD Primary Care Provider [phone] Encounter Details Date Type Department Care Team (Late st Contact Info) Description 11/16/2013 Telephone [place] [phone] Ursula Dooley RN Social History Tobacco Use Types Packs/Day [...] encounter Miscellaneous Notes * Telephone Encounter - Ursula Dooley RN - 11/16/2013 4:12 PM EDT Pt advised per sacha Baker to order CT w/contrast. Pt advised. Reviewed she'll need to have creatinine prior to make sure kidneys can tolerate contrast. Reviewed CT safety questions w/patient. Given # to call radiology to set up appt. * Telephone Encounter - Ursula Dooley RN - 11/16/2013 2:22 PM EDT Pt calls. States after her EGD, Dr. Castro advised her he'd order a CT scan. She's hoping ot have this done ALEX. She reports signifcant epigastric pain and nausea. No appetite. Hydrating w/gatorade. Concerns for new onset black liquid stool this morning. Last episode black stools was in September. She's advised I'd message Dr. Castro. No notes from report indicated CT. Reviewed sx for blood loss; sweating, tachycardia, lightheadedness and/or dizziness. She has no sx at this time. She will directly to the ED if she has any of these sx. Pt understands and agrees withplan. documented in this encounter Plan of Treatment Scheduled Procedures Name Priority Associated Diagnoses Date/Ti me EGD, UPPER GI ENDOSCOPY (WRV U 2.09) Esophageal varices without bleeding, unspecified esophageal varices type Portal vein thrombosis documented as of this encounter Results * CT abdomen with contrast (11/24/2013 2:23 PM EDT) Anatomical Region Laterality Modality Abdomen Computed Tomogra phy 11/24/2013 2:23 PM EDT Narrative 11/24/2013 2:[address] Abdomen With Contrast Clinical History History of superior mesenteric venous thrombosis now with right upper quadrant pain ??tn Comparison CT abdomen/ pelvis, 08/31/2011 and 03/28/2011. ?? Technique Contiguous transaxial computed tomographic images of the abdomen were obtained following the uneventful administration of 110 mL Omnipaque 350 according to standard protocol. Oral contrast was also administered. ?? Findings The lung bases are clear. ??No basilar consolidation, pleural effusion, or pneumothorax. ??The heart size is normal. No pericardial effusion or thickening. ?? Again seen is cavernous transformation of the portal vein. The main portal vein and superior mesenteric vein are thrombosed, unchanged. Diffuse flor[place] appearance of the mesentery is stable when compared to the prior study dated 08/31/2011. No drainable fluid collection. ?? The liver enhances homogeneously. The spleen, adrenal glands, and pancreas are normal. The gallbladder is surgically absent. Subcentimeter hypoattenuating lesions within both kidneys are stable, too small to further characterize. ?? An anastomotic suture line is seen within the colon and the anterior lower abdomen (series 2, image 48). The small bowel and remaining large bowel are normal in course and caliber. There is no bowel wall thickening or pneumoperitoneum. No abdominal lymphadenopathy. The abdominal aorta is normal in course and caliber. ?? Bone windows demonstrate no suspicious osseous lytic or blastic lesions. ??There is stable grade 1 anterolisthesis of L4 on L5 secondary to bilateral pars interarticularis defects at this level. ??There is associated advanced degenerative disc disease at this level. ?? Impression 1. 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 Diffuse mesenteric edemaand lymphadenopathy is stable, may be secondary to chronic occlusion and resultant congestion or secondary mesenteritis. 2. Stable grade 1 anterolisthesis of L4 on L5 due to bilateral pars interarticularis defects at this level. Film and interpretation reviewed by the attending Procedure Note Nadia Cope MD - 11/24/[address] Abdomen With Contrast Clinical History History of superior mesenteric venous thrombosis now with right upperquadrant pain tn Comparison CT abdomen/ pelvis, 08/31/2011 and 03/28/2011. Technique Contiguous transaxial computed tomographic images of the abdomen wereobtained following the uneventful administration of 110 mL Omnipaque 350 accordingto standard protocol. Oral contrast was also administered. Findings The lung bases are clear. No basilar consolidation, pleural effusion, or pneumothorax. The heart size is normal. No pericardial effusion orthickening. Again seen is cavernous transformation of the portal vein. The main portalvein and superior mesenteric vein are thrombosed, unchanged. Diffuse flor[place] appearance of the mesentery is stable when compared to the prior studydated 08/31/2011. No drainable fluid collection. The liver enhances homogeneously. The spleen, adrenal glands, and pancreasare normal. The gallbladder is surgically absent. Subcentimeterhypoattenuating lesions within both kidneys are stable, too small to further characterize. An anastomotic suture line is seen within the colon and the anterior lower abdomen (series 2, image 48). The small bowel and remaining large bowelare normal in course and caliber. There is no bowel wall thickening or pneumoperitoneum. No abdominal lymphadenopathy. The abdominal aorta isnormal in course and caliber. Bone windows demonstrate no suspicious osseous lytic or blastic lesions.There is stable grade 1 anterolisthesis of L4 on L5 secondary to bilateral pars interarticularis defects at this level. There is associated advanced degenerative disc disease at this level. Impression 1. 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 Diffuse mesenteric edemaand lymphadenopathy is stable, may be secondary to chronic occlusion andresultant congestion or secondary mesenteritis. 2. Stable grade 1 anterolisthesis of L4 on L5 due to bilateral pars interarticularis defects at this level. Film and interpretation reviewed by the attending Rico Castro MD IMG CT ORDERABLES documented in this encounter Visit Diagnoses Diagnosis Abdominal pain, right upper quadrant- Primary Abdominal pain, right upper quadrant documented in this encounter Care Teams Administrative Processor Relationship Specialty Start Date End Date Rico Aburto MD [address] [place] [address] PCP - General 08/26/11 09/14/21 documented as of this encounter
--- OUTSIDE RECORDS SUMMARY | 2024-01-11 15:28 | XMS_ITS | Encounter Summary ---
Author Organization [facility] [place] [address] Care Team Providers Care Stone And Plate Preparer Apprentice Name Role Phone Rico Aburto MD Primary Care Provider [phone] Encounter Details Date Type Department Care Team (Latest Contact Info) Description 08/31/2011 2:41 PM EDT - 08/31/2011 11:59 PM EDT Hospital [place] [address] Suresh Angel MD [facility] [place] [address] Discharge Disposition: Home Social History Tobacco Use [...] on filedocumented in this encounter Care Teams Stone And Plate Preparer Apprentice Relationship Specialty Start Date End Date Rico Aburto MD [address] [place] [address] PCP - General 08/26/11 09/14/21 documented as of this encounter
--- OUTSIDE RECORDS SUMMARY | 2024-01-11 15:28 | XMS_ITS | Encounter Summary ---
Author Organization [facility] [place] [address] Care Team Providers Care Filer Metal Patterns Name Role Phone Rico Aburto MD Primary Care Provider [phone] Encounter Details Date Type Department Care Team (Late st Contact Info) Description 10/27/2013 Orders [place] [address] Rico Castro MD [facility] [place] [address] Social History Tobacco Use Types Packs/Day Years [...] Associated Diagnosis Comments FILM LIBRARY STORAGE ONLY ULTRASOUND STUDY Routine 10/27/2013 1:02 PM EDT documented in this encounter Results * Film Library- Storage only Ultrasound Study (10/27/2013 1:02 PM EDT) Anatomical Region Laterality Modality Other 10/27/2013 1:02 PM EDT Narrative 12/05/2013 1:02 PM EDT This is a Non-reportable exam Procedure Note 12/05/2013 This is a Non-reportable exam Rico Castro MD IMG FILM LIBRARY OR DERABLES documented in this encounter Visit Diagnoses Not on filedocumented in this encounter Care Teams Filer Metal Patterns Relationship Specialty Start Date End Date Rico Aburto MD [address] [place] [address] PCP - General 08/26/11 09/14/21 documented as of this encounter
--- OUTSIDE RECORDS SUMMARY | 2024-01-11 15:28 | XMS_ITS | Encounter Summary ---
[place] [address] Care Team Providers Care Director Of Global Talent Name Role Phone Rico Aburto MD Primary Care Provider [phone] Encounter Details Date Type Department Care Team (Late st Contact Info) Description 12/04/2013 Telephone [place] [phone] Ursula Dooley RN Social History Tobacco Use [...] Telephone Encounter - Ursula Dooley RN - 12/04/2013 10:46 AM EDT Pt calls. States Dr. Castro called her on 11/24 w/results of her CT. States she's waiting to hear back from him about something to help w/pain. Chart reviewed. Notes per Dr. Cui as follows: Notes Recorded by Rico Castro MD on 11/27/2013 at 4:54 PM I called Ms. Moreira to discuss her CT scan - no change in the previous mesenteric thrombosis or findings on CT Scan. We discussed her abdominal pain symptoms which could be due to mesenteritis relatedto the clot. She has been seen by the thrombosis clinic and does not need to be on anticoagulation.She also has extensive venous collaterals. I will send her a copy of her CT Scan report. She would like to discuss with family members to determine whether or not she should start on chronic pain medications or see if there are any other available therapies. She will contact me when she is ready to discuss. Pt states she does not recall telling Dr. Castro she wanted to discuss w/her family members if sheshould be on chronic pain medications. States she is interested in something for the pain but does NOT want narcotics. She is advised I'd message Dr. Castro to determine plan. She also would like copy of CT mailed to home. documented in this encounter Plan of Treatment Scheduled Procedures Name Priority Associated Diagnoses Date/Ti me EGD, UPPER GI ENDOSCOPY (WRV U 2.09) Esophageal varices without bleeding, unspecified esophageal varices type Portal vein thrombosis documented as of this encounter Visit Diagnoses Not on filedocumented in this encounter Care Teams Director Of Global Talent Relationship Specialty Start Date End Date Rico Aburto MD [address] [place] [address] PCP - General 08/26/11 09/14/21 documented as of this encounter
--- OUTSIDE RECORDS SUMMARY | 2024-01-11 15:28 | XMS_ITS | Encounter Summary ---
[place] [address] Care Team Providers Care Order Entry Administrator Name Role Phone Rico Aburto MD Primary Care Provider Reason for Visit * Consultation (Routine) - Closed Specialty Diagnoses / Procedures Referred By Charan benson Referred To Contact Hematology and Oncology Diagnoses Abnormal finding on breast imaging Abnormal breast imaging, CAT 3 Procedures Consult and treat Rico Aburto MD [address] [place] [address] [facility]c [address] [place] [address] Referral ID Status Reason Start Date Expiration Date Visits Re quested Visits Authorized [id number] Closed 04/15/2016 04/15/2017 1 1 Encounter Details Date Type Department Care Team (Latest Contact Info) Description 04/21/2016 10:13 AM EST - 04/21/2016 11:59 PM EST Hospital Encounter [place] [id number] Rico Aburto MD [address] [place] [address] Pain Discharge Disposition: Home Social History Tobacco [...] Associated Diagnosis Comments REQUEST FOR 2ND READ MAMMO Routine 04/21/2016 10:15 AM EST Pain documented in this encounter Results * Request for 2nd read Mammo (04/21/2016 10:15 AM EST) Anatomical Region Laterality Modality Computed Tomogra phy Impressions 04/21/2016 12:35 PM EST Findings of the posterior left breast which strongly favor intramammary lymph node. RECOMMENDATION: To confirm, additional 2-D/3-D mammography, and consideration of ultrasound at that juncture. The patient will be called to schedule this examination. BI-RADS 0, additional evaluation is required. Narrative 04/21/2016 12:35 PM EST INTERPRETATION OF OUTSIDE BREAST IMAGING I have been asked to consult on this patient by Dr. Aburto because he believes a review of this study may change or alter the care of this patient. STUDIES FROM: [facility]. DATES: 04/08/2016. CLINICAL HISTORY: Left breast mass, CAT 3, [place] [facility] More Imaging, ? Biopsy, What Modality is the exam? Mammography, Body Part (please add comments as necessary): Breast, I believe a reinterpretation of this exam may alter care of Patient. Yes. ?? COMPARISONS: Multiple comparisons. FINDINGS: Mammography: Density, predominantly fatty. Left breast: Limited characterization of a well-circumscribed mass at the lateral breast on CC views, favoring intramammary lymph node. Fatty hilum is identified. This appears stable since comparison. ULTRASOUND: Targeted ultrasound imaging without focal abnormalities. Ultrasound is pocket grinder operator dependent, for review, not for primary interpretation, images are labeled left breast. Procedure Note Rico Martinez MD - 04/21/2016 INTERPRETATION OF OUTSIDE BREAST IMAGING I have been asked to consult on this patient by Dr. Aburto because hebelieves a review of this study may change or alter the care of this patient. STUDIES FROM: [facility]. DATES: 04/08/2016. CLINICAL HISTORY: Left breast mass, CAT 3, [place] [facility]More [place], ? Biopsy, What Modality is the exam? Mammography, Body Part(please add comments as necessary): Breast, I believe a reinterpretation of this exammay alter care of Patient. Yes. COMPARISONS: Multiple comparisons. FINDINGS: Mammography: Density, predominantly fatty. Left breast: Limited characterization of a well-circumscribed mass atthe lateral breast on CC views, favoring intramammary lymph node. Fatty hilumis identified. This appears stable since comparison. ULTRASOUND: Targeted ultrasound imaging without focal abnormalities.Ultrasound is pocket grinder operator dependent, for review, not for primary interpretation, imagesare labeled left breast. IMPRESSION Findings of the posterior left breast which strongly favor intramammarylymph node. RECOMMENDATION: To confirm, additional 2-D/3-D mammography, andconsideration of ultrasound at that juncture. The patient will be called to schedule this examination. BI-RADS 0, additional evaluation is required. Rico Aburto MD IMG OUTSIDE INTERPRE TATION ORDERABLES documented in this encounter Visit Diagnoses Diagnosis Pain Generalized pain documented in this encounter Care Teams Order Entry Administrator Relationship Specialty Start Date End Date Rico Aburto MD [address] [place] [address] PCP - General 08/26/11 09/14/21 documented as of this encounter
--- OUTSIDE RECORDS SUMMARY | 2024-01-11 15:28 | XMS_ITS | Encounter Summary ---
Author Organization [facility] [place] [address] Care Team Providers Care Welder Helper Name Role Phone Rico Aburto MD Primary Care Provider [phone] Encounter Details Date Type Department Care Team (Late st Contact Info) Description 11/14/2019 Ancillary Procedure [place] [phone] Jarred De La Cruz MD [facility] [place] [address] Social History Tobacco Use Types Packs/Day Years [...] FILM LIBRARY STORAGE ONLY ULTRASOUND STUDY Routine 11/14/2019 12:00 AM EDT documented in this encounter Results * Film Library- Storage Only Ultrasound Study (11/14/2019 12:00 AM EDT) Narrative SAM - 11/21/2019 2:39 PM EDT This exam is auto-finalizing. It's purpose is for storage only. Jarred De La Cruz MD IMG FILM LIBRARY ORD ERABLES Performing Organization Address City/State/[facility] Co de Phone Number [place], [place] documented in this encounter Visit Diagnoses Not on filedocumented in this encounter Care Teams Welder Helper Relationship Specialty Start Date End Date Rico Aburto MD [address] [place] [address] PCP - General 08/26/11 09/14/21 documented as of this encounter
--- OUTSIDE RECORDS SUMMARY | 2024-01-11 15:28 | XMS_ITS | Encounter Summary ---
Author Organization [facility] [place] [address] Care Team Providers Care Medical Office Receptionist Name Role Phone Rico Aburto MD Primary Care Provider [phone] Encounter Details Date Type Department Care Team (Late st Contact Info) Description 12/25/2013 Orders Only [place] [address] Luis Alfredo Lombardi MD [facility] [place] [address] GIB (gastrointestinal bleeding) (Primary Dx) Social History Tobacco Use Types [...] as of this encounter Visit Diagnoses Diagnosis GIB (gastrointestinal bleeding)- Primary Hemorrhage of gastrointestinal tract, unspecified documented in this encounter Care Teams Medical Office Receptionist Relationship Specialty Start Date End Date Rico Aburto MD [address] [place] [address] PCP - General 08/26/11 09/14/21 documented as of this encounter
--- OUTSIDE RECORDS SUMMARY | 2024-01-11 15:28 | XMS_ITS | Encounter Summary ---
[place] [address] Care Team Providers Care Clinical Trials Nurse Name Role Phone Rico Aburto MD Primary Care Provider [phone] Encounter Details Date Type Department Care Team (Late st Contact Info) Description 11/07/2013 11:30 AM EDT - 11/07/2013 12:00 PM EDT Surgery [place] [address] Rico Castro MD [facility] [place] [address] EGD, UPPER GI ENDOSCOPY (WRVU 2.09) Social [...] Sign Reading Time Taken Comments Blood Pressure 93/43 11/07/2013 12:34 PM EDT Pulse 69 11/07/2013 12:34 PM EDT Temperature 36.6 ??C (97.9 ??F) 11/07/2013 10:23 AM E DT Respiratory Rate 16 11/07/2013 12:34 PM EDT Oxygen Saturation 93% 11/07/2013 12:34 PM EDT Inhaled Oxygen Concentration - - Weight - - Height - - Body Mass Index - - documented in this encounter Discharge Instructions * Discharge Instructions* Katharine Carmona RN - 11/07/2013 12:35 PM EDT You may have received medications before and/or during your procedure which effects judgement and reaction time. Do not drive, operate machinery, drink alcoholic beverages or make important decisions for 24 hours. Be careful on stairs as you may be unsteady on your feet. You may eat a regular diet as tolerated. Do not smoke if you are alone. IV site-- slight redness or tenderness is normal. You may use a warm compress. If tenderness and redness increases or foul drainage occurs, please contact your MD/ Please call [phone] before 5pm with problems, questions or concerns. After 5pm call [phone] and ask to speak with the hazard mitigation officer field operations coordinator. Discharge instructions reviewed with patient who expresses understanding. * Attachments The following attachments cannot be sent through Care Everywhere. * EGD (UPPER ENDOSCOPY) : POST-OP ([facility]) documented in this encounter Medications at Time [...] as of this encounter H&P Notes * Rico Castro MD - 11/07/2013 11:53 AM EDT Delightful 63 y/o female here for screening EGD for varices. 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 Currently asymptomatic. Blood pressure 164/89, pulse 73, temperature 36.6 ??C (97.9 ??F), temperature source Oral, resp. rate 16, SpO2 97.00%. CTAB RRR Plan for EGD now documented in this encounter Miscellaneous Notes * Miscellaneous - Provider, Scanning - 11/07/2013 9:32 PM EDT * Miscellaneous - Provider, Scanning - 11/07/2013 2:40 PM EDT documented in this encounter Plan of Treatment Scheduled Procedures Name Priority Associated Diagnoses Date/Ti me EGD, UPPER GI ENDOSCOPY (WRV U 2.09) Esophageal varices without bleeding, unspecified esophageal varices type Portal vein thrombosis documented as of this encounter Procedures Procedure Name Priority Date/Time Associated Diagnosis Comments EGD, UPPER GI ENDOSCOPY (WRVU 2.09) 11/07/2013 11:53 AM EDT melena, abd pain UPPER GI ENDOSCOPY Routine 11/07/2013 11 :47 AM EDT documented in this encounter Results * UPPER GI ENDOSCOPY (11/07/2013 11:47 AM EDT) UPPER GI ENDOSCOPY [facility] Endoscopy Patient Name: Amalia Moreira ? Procedure Date: 11/07/2013 11:47 AM ? Date of : 1950 ? Age: 63 ? Order #: [id number] ? Procedure: ? Upper GI endoscopy Indications: ? Portal hypertension rule out ? esophageal varices Providers: ? Rico Castro MD, Odilia Jaimes, ? NEL, Pat Reyes MD: ?Rico Aburto MD Medicines: ? Midazolam 5 mg IV, Fentanyl 200 ? micrograms IV Complications: ? No immediate [...] ? Assessment: II - A patient with mild ? systemic disease. After reviewing the ? risks and benefits, the patient was ? deemed in satisfactory condition to ? undergo the procedure. The anesthesia ? plan was to use moderate sedation / ? analgesia (conscious sedation). ? Immediately prior to administration ? of medications, the patient was ? re-assessed for [...] well. ? Findings: ? The esophagus was normal with the exception of a ? small hiatal hernia from 36-38 cm. There were no ? esophageal varices ? The stomach was normal. There was no evidence of ? gastric varices or portal hypertensive gastropathy ? The examined duodenum was normal. ? Impression: ?- No evidence of esophageal or ? gastric varices Recommendation: ?- Repeat exam in 2-3 years ? ___ Rico Castro MD 11/07/2013 12:22 PM This report has been signed electronically. Number of Addenda: 0 Note Initiated On: 11/07/2013 11:47 AM PROVATION 11/07/2013 11:4 7 AM EDT Rico Aburto MD GENERAL SURGICAL ORD ERABLES PROVATION documented in this encounter Visit Diagnoses Not on filedocumented in this encounter Administered Medications Inactive Administered Medications - up to 3 most recent administrations Medication Order MAR Action Action Date Dose Rate Site fentaNYL 50mcg/mL injection ONCE PRN, Starting on e 11/07/13 at 1157, Until 11/07/13 at 1724, Pain, Intra-Operative (Intra-Procedure), Routine Given 11/07/2013 12:18 PM EDT 50 mcg Given 11/07/2013 12:12 PM EDT 25 mcg Given 11/07/2013 12:08 PM EDT 25 mcg lactated ringers infusion 100 mL/hr, Intravenous, CONTINUOUS, Starting on 11/07/13 at 1045, Until 11/07/13 at 1724, Endoscopy (Day of Procedure) New Bag 11/07/2013 10:35 AM EDT 100 mL/hr 100 mL/hr midazolam (PF) (VERSED) 1 mg/mL injection ONCE PRN, Starting on 11/07/13 at 1157, Until 11/07/13 at 1724, Sleep, Intra-Operative (Intra-Procedure), Routine Given 11/07/2013 12:17 PM EDT 1 mg Given 11/07/2013 12:08 PM EDT 1 mg Given 11/07/2013 12:04 PM EDT 1 mg documented in this encounter Active and Recently Administered Medications Times are shown in EDT. Continuous Medication Order 11/05/2013 11/06/2013 11/07/2013 lactated ringers infusion (CANCELED) 100 mL/hr, Intravenous, CONTINUOUS, Starting on 11/07/13 at 1045, Until Wed11/07/13 at 1724, Endoscopy (Day of Procedure) 1035 (New Bag - Prov ider: Bari Chung RN) PRN Medication Order 11/05/2013 11/06/2013 11/07/2013 fentaNYL 50mcg/mL injection (CANCELED) ONCE PRN, Starting on e 11/07/13 at 1157, Until 11/07/13 at 1724, Pain, Intra-Operative (Intra-Procedure), Routine 1157 (Given - Provid er: Odilia Jaimes RN)1202 (Given - Provider: Odilia Jaimes RN)1208 (Given - Provider: Odilia Jaimes RN)1212 (Given - Provider: Odilia Jaimes RN)1218 (Given - Provider: Odilia Jaimes RN) midazolam (PF) (VERSED) 1 mg/mL injection (CANCELED) ONCE PRN, Starting on Wed11/07/13 at 1157, Until Wed11/07/13 at 1724, Sleep, Intra-Operative (Intra-Procedure), Routine 1157 (Given - Provid er: Odilia Jaimes RN)1200 (Given - Provider: Odilia Jaimes RN)1204 (Given - Provider: Odilia Jaimes RN)1208 (Given - Provider: Odilia Jaimes RN)1217 (Given - Provider: Odilia Jaimes, NEL) documented in this encounter Care Teams Clinical Trials Nurse Relationship Specialty Start Date End Date Rico Aburto MD [address] [place] [address] PCP - General 08/26/11 09/14/21 documented as of this encounter
--- OUTSIDE RECORDS SUMMARY | 2024-01-11 15:28 | XMS_ITS | Encounter Summary ---
[place] [address] Care Team Providers Care Awake Overnight Monitor Name Role Phone Rico Aburto MD Primary Care Provider [phone] Encounter Details Date Type Department Care Team (Late st Contact Info) Description 09/22/2011 1:00 PM EDT - 09/22/2011 2:00 PM EDT [place] [address] Kenrick Gonzalez MD [facility] [address] COLONOSCOPY, DIAGNOSTIC (WRVU 3.26) Social History Tobacco Use Types Packs/Day Years [...] occurs please contact your M.D. Please call [phone] before 5 pm with problems, questions or concerns. After 5pm call [phone] and ask to speak with the hog counter formstone fitter. Discharge instructions reviewed with patient who expresses understanding. * Patient Instructions* Kenrick Gonzalez MD - 09/22/2011 1:22 PM EDT Please see Recommendations in the Provation procedure report which is documented in the procedural note in E-[facility]. * Attachments The following attachments cannot be sent through Care Everywhere. * COLONOSCOPY: WHAT TO EXPECT AT HOME ([facility]) * UPPER GI ENDOSCOPY: WHAT TO EXPECT AT HOME ([place]) documented in this encounter Medications at Time [...] * COLONOSCOPY (09/22/2011 1:23 PM EDT) COLONOSCOPY [facility] Endoscopy Patient Name: Amalia Moreira ? Procedure Date: 09/22/2011 1:23 PM ? Date of : 1950 ? Age: 60 ? Order #: [id number] ? Procedure: ? Colonoscopy Indications: ? Screening for colorectal malignant ? neoplasm, s/p right hemicolectomy for ? appendicitis complicated Providers: ? Kenrick Gonzalez MD, Rene Knox, ? RN, Eliana White, Biological Engineer Referring MD: ?Rico Aburto MD Medicines: ? Midazolam 4 [...] GI ENDOSCOPY (09/22/2011 1:22 PM EDT) Pathologist [facility] UPPER GI ENDOSCOPY [facility] Endoscopy Patient Name: Amalia [place] ? Procedure Date: 09/22/2011 1:22 PM ? Date of : 1950 ? Age: 60 ? Order #: [id number] ? Procedure: ? Upper GI endoscopy Indications: ? pt with portal vein thrombosis r/o ? varices Providers: ? Kenrick Gonzalez MD, Rene Knox, ? RN, Eliana White, Biological Engineer Referring : ?Rico Aburto MD Medicines: ? [...] malignant neoplasms, colon documented in this encounter Administered Medications Inactive Administered Medications - up to 3 most recent administrations Medication Order MAR Action Action Date Dose Rate Site fentaNYL 50mcg/mL injection ONCE PRN, Starting on e 09/22/11 at 1328, Until 09/22/11 at 1800, Pain, Intra-Operative (Intra-Procedure), Routine Given 09/22/2011 1:28 PM EDT 50 mcg fentaNYL 50mcg/mL injection Intravenous, Administer over 1 Hours, ONCE PRN, Starting on 09/22/11 at 1332, Until 09/22/11 at 1800, Pain, once, Intra-Operative (Intra-Procedure), Routine Given 09/22/2011 1:32 PM EDT 50 mcg fentaNYL 50mcg/mL injection Intravenous, Administer over 1 Hours, ONCE PRN, Starting on 09/22/11 at 1335, Until 09/22/11 at 1800, Pain, once, Intra-Operative (Intra-Procedure), Routine Given 09/22/2011 1:35 PM EDT 50 mcg fentaNYL 50mcg/mL injection Intravenous, Administer over 1 Hours, ONCE PRN, Starting on 09/22/11 at 1352, Until Tu09/22/11 at 1800, Pain, once, Intra-Operative (Intra-Procedure), Routine Given 09/22/2011 1:52 PM EDT 50 mcg fentaNYL 50mcg/mL injection Intravenous, Administer over 1 Hours, ONCE PRN, Starting on 09/22/11 at 1355, Until 09/22/11 at 1800, Pain, once, Intra-Operative (Intra-Procedure), Routine Given 09/22/2011 1:55 PM EDT 50 mcg midazolam (VERSED) injection ONCE PRN, Starting on 09/22/11 at 1328, Until Wed09/22/11 at 1800, Sleep, Intra-Operative (Intra-Procedure), Routine Given 09/22/2011 1:28 PM EDT 2 mg midazolam (VERSED) injection Intravenous, ONCE PRN, Starting on 09/22/11 at 1332, Until 09/22/11 at 1800, Sleep, Endoscopy (Intra-Procedure), Routine Given 09/22/2011 1:35 PM EDT 1 mg Given 09/22/2011 1:32 PM EDT 1 mg midazolam (VERSED) injection Intravenous, ONCE PRN, Starting on 09/22/11 at 1352, Until Wed09/22/11 at 1800, Sleep, Endoscopy (Intra-Procedure), Routine Given 09/22/2011 1:52 PM EDT 2 mg midazolam (VERSED) injection Intravenous, ONCE PRN, Starting on 09/22/11 at 1354, Until 09/22/11 at 1800, Sleep, Endoscopy (Intra-Procedure), Routine Given 09/22/2011 1:54 PM EDT 1 mg sodium chloride 0.9% infusion 50 mL/hr, Intravenous, CONTINUOUS, Starting on 09/22/11 [...] over 1 Hours, ONCE PRN, Starting on Tue 58/12 at 1352, Until Tue 58/12 at 1800, Pain, once, Intra-Operative (Intra-Procedure), Routine 1352 (Given - Provid er: Rene Knox RN) fentaNYL 50mcg/mL injection (CANCELED) Intravenous, Administer over 1 Hours, ONCE PRN, Starting on 09/22/11 at 1355, Until 09/21/12 at 1800, Pain, once, Intra-Operative (Intra-Procedure), Routine 1355 (Given - Provid er: Rene Knox RN) midazolam (VERSED) injection (CANCELED) ONCE PRN, Starting on 09/22/11 at 1328, Until Tue 5/12 at 1800, Sleep, Intra-Operative (Intra-Procedure), Routine 1328 (Given - Provid er: Rene Knox RN) midazolam (VERSED) injection (CANCELED) Intravenous, ONCE PRN, Starting on Tue 12 at 1332, Until Tue 5/12 at 1800, Sleep, Endoscopy (Intra-Procedure), Routine 1332 (Given - Provid er: Rene Knox RN)1335 (Given - Provider: Rene Knox RN) midazolam (VERSED) injection (CANCELED) Intravenous, ONCE PRN, Starting on Tue 58/12 at 1352, Until Tue 58/12 at 1800, Sleep, Endoscopy (Intra-Procedure), Routine 1352 (Given - Provid er: Rene Knox RN) midazolam (VERSED) injection (CANCELED) Intravenous, ONCE PRN, Starting on Tue 12 at 1354, Until Tue 58/12 at 1800, Sleep, Endoscopy (Intra-Procedure), Routine 1354 (Given - Provid er: Rene Knox RN) documented in this encounter Care Teams Awake Overnight Monitor Relationship Specialty Start Date End Date Rico Aburto MD [address] [place] [address] PCP - General 08/26/11 09/14/21 documented as of this encounter
--- OUTSIDE RECORDS SUMMARY | 2024-01-11 15:28 | XMS_ITS | Encounter Summary ---
[place] [address] Care Team Providers Care Mini Bar Attendant Name Role Phone Rico Aburto MD Primary Care Provider [phone] Encounter Details Date Type Department Care Team (Latest Contact Info) Description 11/07/2013 10:04 AM EDT - 11/07/2013 1:30 PM EDT Hospital Encounter [place] [address] Rico Castro MD [facility] [place] [address] Discharge Disposition: Home Social History Tobacco Use [...] occurs, please contact your MD/ Please call [phone] before 5pm with problems, questions or concerns. After 5pm call [phone] and ask to speak with the lever miller personnel security assistant. Discharge instructions reviewed with patient who expresses understanding. * Attachments The following attachments cannot be sent through Care Everywhere. * EGD (UPPER ENDOSCOPY) : POST-OP ([place]) documented in this encounter Medications at Time [...] (11/07/2013 11:47 AM EDT) UPPER GI ENDOSCOPY [facility] Endoscopy Patient Name: Amalia Moreira ? Procedure Date: 11/07/2013 11:47 AM ? Date of : 1950 ? Age: 63 ? Order #: [id number] ? Procedure: ? Upper GI endoscopy Indications: [...] infusion 100 mL/hr, Intravenous, CONTINUOUS, Starting on Wed11/07/13 at 1045, Until Wed11/07/13 at 1724, Endoscopy (Day of Procedure) New Bag 11/07/2013 10:35 AM EDT 100 mL/hr 100 mL/hr documented in this encounter Active and Recently Administered Medications Times are shown in EDT. Continuous Medication Order 11/05/2013 11/06/2013 11/07/2013 lactated ringers infusion (CANCELED) 100 mL/hr, Intravenous, CONTINUOUS, Starting on Wed11/07/13 at 1045, Until Wed11/07/13 at 1724, Endoscopy (Day of Procedure) 1035 (New Bag - Prov ider: Bari Chung RN) PRN Medication Order 11/05/2013 11/06/2013 11/07/2013 fentaNYL 50mcg/mL injection (CANCELED) ONCE PRN, Starting on Wed11/07/13 at 1157, Until Wed11/07/13 at 1724, Pain, Intra-Operative (Intra-Procedure), Routine 1157 (Given - Provid er: Odilia Jaimes RN)1202 (Given - Provider: Odilia Jaimes RN)1208 (Given - Provider: Odilia Jaimes RN)1212 (Given - Provider: Odilia Jaimes, NEL)1218 (Given - Provider: Odilia Jaimes, NEL) midazolam (PF) (VERSED) 1 mg/mL injection (CANCELED) ONCE PRN, Starting on Wed11/07/13 at 1157, Until Wed11/07/13 at 1724, Sleep, Intra-Operative (Intra-Procedure), Routine 1157 (Given - Provid er: Odilia Jaimes RN)1200 (Given - Provider: Odilia Jaimes RN)1204 (Given - Provider: Odilia Jaimes RN)1208 (Given - Provider: Odilia Jaimes, NEL)1217 (Given - Provider: Odilia Jaimes, NEL) documented in this encounter Care Teams Mini Bar Attendant Relationship Specialty Start Date End Date Rico Aburto MD [address] [place] [address] PCP - General 08/26/11 09/14/21 documented as of this encounter
--- OUTSIDE RECORDS SUMMARY | 2024-01-11 15:28 | XMS_ITS | Encounter Summary ---
[place] [address] Care Team Providers Care Derrick Man Name Role Phone Rico Aburto MD Primary Care Provider [phone] Encounter Details Date Type Department Care Team (Latest Contact Info) Description 11/24/2013 11:41 AM EDT - 11/24/2013 11:59 PM EDT Hospital [place] [address] CLINIC, Rico Lee MD [facility] [place] [address] Abdominal pain, right upper quadrant Discharge Disposition: [...] Priority Date/Time Associated Diagnosis Comments CT ABDOMEN W CONTRAST Routine 11/24/2013 2:23 PM EDT Abdominal pain, right upper quadrant documented in this encounter Results * CT abdomen with [...] Visit Diagnoses Diagnosis Abdominal pain, right upper quadrant documented in this encounter Administered Medications Inactive Administered Medications - up to 3 most recent administrations Medication Order MAR Action Action Date Dose Rate Site iohexol (OMNIPAQUE) 350 mg iodine/mL injection 17,500 mg 17,500 mg (50 mL), Oral, ONCE PRN, 1 dose, Starting on Wed11/24/13 at 1409, Until Wed11/24/13 at 1200, Per Protocol, Routine Given 11/24/2013 12:00 PM EDT 17,500 mg iohexol (OMNIPAQUE) 350 mg iodine/mL injection 38,500 mg 38,500 mg (110 mL), Intravenous, ONCE PRN, 1 dose, Starting on Wed11/24/13 at 1358, Until Wed11/24/13 at 1413, Per Protocol, Routine Given 11/24/2013 2:13 PM EDT 38,500 mg documented in this encounter Care Teams Derrick Man Relationship Specialty Start Date End Date Rico Aburto MD [address] [place] [address] PCP - General 08/26/11 09/14/21 documented as of this encounter
--- OUTSIDE RECORDS SUMMARY | 2024-01-11 15:28 | XMS_ITS | Encounter Summary ---
Author Organization [facility] Address [facility] [place] [address] Care Team Providers Care Distribution Systems Superintendent Name Role Phone Rico Aburto MD Primary Care Provider [phone] Encounter Details Date Type Department Care Team (Latest Contact Info) Description 04/08/2016 12:15 AM EST - 04/08/2016 11:59 PM [facility] Hospital Encounter [place] [address] Janice Calle MD [facility] [place] [address] Pain Discharge Disposition: Home Social History Tobacco [...] Comments FILM LIBRARY STORAGE ONLY MAMMO Routine 04/08/2016 12:15 AM EST Pain documented in this encounter Results * Film Library- Storage Only Mammo (04/08/2016 12:15 AM EST) Narrative [facility] - 04/15/2016 2:46 PM EST This exam is for storage only and is auto-finalizing. Janice Calle MD IMG FILM LIBRARY O RDERABLES Performing Organization Address City/State/[facility] Co de Phone Number [place], [place] documented in this encounter Visit Diagnoses Diagnosis Pain Generalized pain documented in this encounter Care Teams Distribution Systems Superintendent Relationship Specialty Start Date End Date Rico Aburto MD [address] [place] [address] PCP - General 08/26/11 09/14/21 documented as of this encounter
--- OUTSIDE RECORDS SUMMARY | 2024-01-11 15:28 | XMS_ITS | Encounter Summary ---
Author Organization [facility] Address [facility] [place] [address] Care Team Providers Care Salesperson Florist Supplies Name Role Phone Rico Aburto MD Primary Care Provider [phone] Encounter Details Date Type Department Care Team (Latest Contact Info) Description 04/08/2016 - 04/08/2016 12:14 AM EST Hospital Encounter [place] [address] Janice Calle MD [facility] [place] [address] Pain Discharge Disposition: Home Social History Tobacco [...] FILM LIBRARY STORAGE ONLY MAMMO Routine 04/08/2016 12:00 AM EST Pain documented in this encounter Results * Film Library- Storage Only Mammo (04/08/2016 12:00 AM EST) Narrative [facility] - 04/15/2016 2:15 PM EST This exam is for storage only and is auto-finalizing. Janice Calle MD IMG FILM LIBRARY O RDERABLES [place], [place] documented in this encounter Visit Diagnoses Diagnosis Pain Generalized pain documented in this encounter Care Teams Salesperson Florist Supplies Relationship Specialty Start Date End Date Rico Aburto MD [address] [place] [address] PCP - General 08/26/11 09/14/21 documented as of this encounter
--- OUTSIDE RECORDS SUMMARY | 2024-01-11 15:29 | XMS_ITS | Encounter Summary ---
Author Organization [facility] [place] [address] Care Team Providers Care Aeronautics Teacher Name Role Phone Unavailable Primary Care Provider Unavailabl e Encounter Details Date Type Department Care Team (Latest Contact Info) Description 05/19/2007 - 05/19/2007 11:59 PM EST Hospital Encounter [place] [id number] Janice Calle MD [facility] [place] [address] Pain Discharge Disposition: Home Social History Tobacco Use Types Packs/Day Years Used Date Smoking Tobacco: Never Assessed Sex and Gender Information Value Date Recorded Sex Assigned at Not on file Gender Identity Not on file Sexual Orientation Not on file documented as of this encounter Medications at Time of Discharge Medication Sig Dispensed Refills Start Date End Date [facility] Free Text Med - Flovent 220 mcg, 2 Puffs, Inh, BID 07/11/2002 03/28/2011 [facility] Free Text Med - 50% F\T\P Mite Extract 1 5cc vial 100au (10 doses) dose .05-.5cc, SQ, min 1 x month 07/11/2002 03/28/2011 nortriptyline (PAMELOR) 10 mg capsule 07/11/2002 03/28/2011 documented as of this encounter Plan of Treatment Scheduled Procedures Name Priority Associated Diagnoses Date/Ti me EGD, UPPER GI ENDOSCOPY (WRV U 2.09) Esophageal varices without bleeding, unspecified esophageal varices type Portal vein thrombosis documented as of this encounter Procedures Procedure Name Priority Date/Time Associated Diagnosis Comments FILM LIBRARY STORAGE ONLY MAMMO Routine 05/19/2007 12:00 AM EST Pain documented in this encounter Results * Film Library- Storage Only Mammo (05/19/2007 12:00 AM EST) Narrative [facility] - 04/15/2016 2:55 PM EST This exam is for storage only and is auto-finalizing. Janice FULLER FILM LIBRARY O RDERABLES [place], [place] documented in this encounter Visit Diagnoses Diagnosis Pain Generalized pain documented in this encounter
--- OUTSIDE RECORDS SUMMARY | 2024-01-11 15:29 | XMS_ITS | Encounter Summary ---
[place] [address] Care Team Providers Care Painter And Grader Cork Name Role Phone Ilana Nowak APRN Primary Care Provider [phone] Encounter Details Date Type Department Care Team (Late st Contact Info) Description 04/01/2011 9:30 AM EST Office Visit [place] [address] Nadia Roper RVT Social History Tobacco Use Types Packs/Day Years Used Date Smoking Tobacco: Never Alcohol Use Standard Drinks/Week Comments Not Asked 0 (1 standard drink = 0.6 oz [...] on filedocumented in this encounter Care Teams Painter And Grader Cork Relationship Specialty Start Date End Date Ilana Nowak APRN [address] [place] [address] PCP - General 04/08/10 08/25/11 documented as of this encounter
--- OUTSIDE RECORDS SUMMARY | 2024-01-11 15:29 | XMS_ITS | Encounter Summary ---
[place] [address] Care Team Providers Care Care Trainer Name Role Phone Mario Nowak APRN Primary Care Provider [phone] Reason for Referral * Consultation (Routine) - Closed Specialty Diagnoses / Procedures Referred By Contac t Referred To Contact Gastroenterology Diagnoses Abdominal pain, right upper quadrant [place] [address] [facility] [address] [place] [address] Referral ID Status Reason Start Date Expiration Date V isits Requested Visits Authorized [id number] Closed Consult, Test & Treat 04/03/2011 09/30/2011 1 1 * Consultation (Routine) - Closed Specialty Diagnoses / Procedures Referred By Contac t Referred To Contact Family Medicine Diagnoses Abdominal pain, right upper quadrant [place] [address] Mario Nowak APRN [address] [place] [address] Referral ID Status Reason Start Date Expiration Date V isits Requested Visits Authorized [id number] Closed Continuity of Care 04/03/2011 09/30/2011 1 1 * Consultation (Routine) - Closed Specialty Diagnoses / Procedures Referred By Contac t Referred To Contact Family Medicine Diagnoses Abdominal pain, right upper quadrant [place] [address] Mario Nowak, SENG [address] [place] [address] Referral ID Status Reason Start Date Expiration Date V isits Requested Visits Authorized [id number] Closed Assume Subset of Care 04/03/2011 09/30/2011 1 1 Reason for Visit * Reason Comments Abdominal Pain Encounter Details Date Type Department Care Team (Latest Contact Info) Description 03/27/2011 7:18 PM EST - 04/03/2011 7:18 PM EST Hospital Encounter 1 [place] [address] [facility] [place] [address] [facility] [place] [address] Sreekanth Lucas MD [place] [id number] [place] [address] Abdominal pain, right upper quadrant Discharge Disposition: [...] Sign Reading Time Taken Comments Blood Pressure 168/72 04/03/2011 11:00 AM EST Pulse 84 04/03/2011 11:00 AM EST Temperature 36.7 ??C (98.1 ??F) 04/03/2011 1 1:00 AM EST Respiratory Rate 20 04/03/2011 11:0 0 AM EST Oxygen Saturation 93% 04/03/2011 11: 00 AM EST Inhaled Oxygen Concentration - - Weight 102.7 kg (226 lb 6.6 oz) 03/30/2011 7:40 AM EST Height 157.5 cm (5' 2.01) 03/28/2011 1 1:00 AM EST Body Mass Index 41.4 03/28/2011 11:00 AM EST documented in this encounter Discharge Instructions * Patient Instructions* Honorio Belcher - 04/02/2011 3:19 PM EST documented in this encounter Medications at Time of Discharge Medication Sig Dispensed Refills Start Date End Date albuterol (PROVENTIL HFA;VENTOLIN HFA) 90 mcg/Actuation inhaler Inhale 1 puff into the lungs daily. Use with spacer ondansetron (ZOFRAN) 4 mg tablet Take 1 tablet by mouth every 8 hours as needed for Nausea. 20 tablet 0 04/04/2011 11/07/2013 HYDROmorphone (DILAUDID) 4 mg tablet Take 1-2 tablets by mouth every 4 hours as needed for Pain. 10 tablet 0 04/03/2011 08/31/2011 nystatin (MYCOSTATIN) 100,000 unit/mL suspension Take 5 mLs by mouth 4 times daily. 500 mL 0 04/02/2011 08/31/2011 warfarin (COUMADIN) 5 mg tablet Take 1 tablet by mouth every evening. 30 tablet 3 04/02/2011 11/07/2013 enoxaparin (LOVENOX) 100 mg/mL Syrg injection Inject 1 mL subcutaneously 2 times daily. 28 Syringe 0 04/02/2011 08/31/2011 fluticasone-salmete rol (ADVAIR) 100-50 mcg/dose diskus inhaler Inhale 1 puff into the lungs daily. 11/02/2019 levothyroxine (SYNTHROID) 25 mcg tablet Take 100 mcg by mouth daily. 10/15/2021 omeprazole (PRILOSEC) 10 mg capsule Take 10 mg by mouth daily. 10/15/2021 documented as of this encounter Progress Notes * Lorna Mosqueda RN - 04/03/2011 6:48 PM EST OFFICE OF CARE MANAGEMENT CLINICAL CHEMICAL OPERATIONS AND TRAINING PROGRESS NOTE Notified by bedside nurse that patient's pharmacy does not have lovenox available until Wednesday. Contacted [facility] and [facility]. [facility] sent [facility] prescription to [facility] in [facility] and it is filled for her there to pickle maker. Met with patient and at bedside. Advised of location of lovenox Rx. Plan: Discharge to home today. Lorna Mosqueda RN BN Clinical Legal Investigator Office of Care Management Pager [phone] * Ana Maria Pereira MD - 04/03/2011 4:45 PM EST Hospital Medicine - Attending Day of Discharge Documentation Discharge diagnosis Active Hospital Problems Diagnoses ??? Superior mesenteric vein thrombosis ??? Hallucination, drug-induced ??? Abdominal pain Resolved Hospital Problems Diagnoses Date Resolved ??? Elevated alkaline phosphatase level 04/01/2011 ??? Acute pancreatitis 04/01/2011 ??? Nausea 04/01/2011 Secondary Issues Active Non-Hospital Problems Diagnoses ??? Abdominal pain, right upper quadrant ??? Hypothyroid I have personally seen and examined the patient and they are ready for discharge. Select the appropriate statement that describes your involvement and care and omit the other: I spent >30 minutes (Day of Discharge Code 08765) involved in the final examination of the patient, discussion of the hospital stay, instructions for continuing care to all relevant caregivers, and preparation of discharge records, prescriptions and referral forms. Plans Discharge to home Follow-up scheduled with GI and PMD, who will follow coumadin Please see the Discharge Summary for complete details of any medication changes and additional plans. * Lorna Mosqueda RN - 04/02/2011 4:06 PM EST OFFICE OF CARE MANAGEMENT CLINICAL CHEMICAL OPERATIONS AND TRAINING PROGRESS NOTE e-DH reviewed. Report received from Dr Sreekanth Lucas. Patient to be discharged tomorrow on lovenox. Lovenox prescription efaxed to [facility] in [facility]. Telephone call to [facility] - they have 10 syringes in stock. Prescription has been filled with a copay of $3.00. Plan: CRC will continue to follow for coordination of care and to facilitate discharge planning. Lorna Mosqueda RN BN Clinical Legal Investigator Office of Care Management Pager [phone] * Sreekanth Lucas MD - 04/02/2011 1:59 PM EST Inpatient Hospital Medicine - Progress Note Admit Date: 03/27/2011 Hospital Day 6 days Problem List: Active Hospital Problems Diagnoses ??? Superior mesenteric vein thrombosis ??? Hallucination, drug-induced ??? Abdominal pain Resolved Hospital Problems Diagnoses Date Resolved ??? Elevated alkaline phosphatase level 04/01/2011 ??? Acute pancreatitis 04/01/2011 ??? Nausea 04/01/2011 Active Non-Hospital Problems Diagnoses ??? Hypothyroid Subjective: I informed her that she will hopefully be discharged tomorrow and that we need to begin to work on that. She told me there's no way I'm going to be ready tomorrow. When queried further by what she meant by that she said, Well what if I have pain at home? I explained that she would be dischargedwith pain medications. She did not appear happy. Physical Exam: Last Set of Vitals and range of vitals over past 24 hours: Last value Range last 24 hrs Temperature Temp: 36.7 ??C (98.1 ??F) Temp: [36.2 ??C (97.2 ??F)-36.7 ??C (98.1 ??F)] Heart Rate Heart Rate: 79 Heart Rate: [72-80] Blood Pressure BP: 142/74 mmHg BP: (128-142)/(70-80) Respiratory Rate Resp: 18 Resp: [18] SpO2 SpO2: 94 % SpO2: [94 %-99 %] Physical Exam Constitutional: She is oriented to person, place, and time. She appears well- developed and well-nourished. No distress. HENT: Head: Normocephalic and atraumatic. Mouth/Throat: No oropharyngeal exudate. Eyes: EOM are normal. Pupils are equal, round, and reactive to light. No scleral icterus. Neck: Normal range of motion. Neck supple. No JVD present. Cardiovascular: Normal rate, regular rhythm and normal heart sounds. Exam reveals no gallop and no friction rub. No murmur heard. Pulmonary/Chest: Effort normal and breath sounds normal. No respiratory distress. She has no wheezes. She has no rales. Abdominal: Soft. Bowel sounds are normal. She exhibits no distension. No tenderness. She has no rebound and no CVA tenderness. No hernia. Well healing sites from previous laparoscopy Lymphadenopathy: She has no cervical adenopathy. Neurological: She is alert and oriented to person, place, and time. No cranial nerve deficit. Skin: Skin is warm and dry. No erythema. Psychiatric: She has a normal mood and affect. Laboratory (Last 24 Hours): Lab Results Component Value Date CREATININE 0.40* 04/02/2011 Lab Results Component Value Date NA 135 04/02/2011 K 4.0 04/02/2011 CL 96* 04/02/2011 CO2 31 04/02/2011 Lab Results Component Value Date WBC 5.8 04/02/2011 HGB 11.9 04/02/2011 HCT 36.3 04/02/2011 MCV 95.3* 04/02/2011 PLATELET 274 04/02/2011 Lab Results Component Value Date TRIG 59 03/29/2011 CT abdomen/pelvis 03/28/2011 1. Findings concerning for possible acute pancreatitis. 2. No free air or free fluid. 3. Status post cholecystectomy. 4. Unremarkable small bowel/colon anastomosis. RUQ ultrasound 03/30/2011 1. No evidence of choledocholithiasis. 2. Enlarged CBD, 13mm, post cholecystectomy. 3. Enlarged and echogenic pancreas consistent with patients known pancreatitis. MRI cholangiopancreatography 03/30/2011 1. No evidence of choledocholithiasis. 2. Loss of normal flow void throughout the portal vein and its branches suggestive of portal venousthrombosis. Additionally, the SMV appears expanded also raising the possibility of intraluminal thrombus. Assessment: This is a very nice 60-year-old lady with past medical history of hypothyroidism and recent appendectomy and right hemicolectomy here with acute onset of RUQ/epigastric abdominal pain status post extensive workup at [facility] essentially unrevealing with imaging here consistent with new SMV thrombosis, now on anticoagulation. Plan: 1. SMV thrombosis. Seen on MRCP and ultrasound. Anticoagulation x 3-6 months. Starting warfarin today, will likely need enoxaparin bridge x 1-2 weeks in the interim. Strong literature evidence regarding correlation between appendectomy and SMV thrombus. 2. Hallucinations. Suspect secondary to hydromorphone use. Stopped all IV forms today and decreasing PO. Neuro exam normal. If does not resolve later this afternoon will investigate further. 3. Possible obstructive sleep apnea. Nursing note desaturations while sleeping, and body habitus issuch that ZIA would not be surprising. Supplemental oxygen for now and recommend outpatient sleep study to PCP. 4. Hypothyroidism. Continue levothyroxine. 5. F/E/N. Monitor/optimize electrolytes. NPO. 6. DVT prophylaxis with full-strength enoxaparin for clot as above. 7. Full code. 8. MD pager [phone] 24 hours/day. SREEKANTH LUCAS MD 04/02/2011 * Naga Zavala MD - 04/01/2011 3:22 PM EST Gastroenterology and Hepatology Progress Note Problem List: #. Abdominal pain - CT Abd/Pelvis on admission raising concern for pancreatitis - subsequent MRCP for ? Pancreatitis which subsequently demonstrated portal vein and likely SMV clot #. History of recent perforated appendicitis #. Hypothyroidism #. GERD #. Asthma Interval History: - started on therapeutic anticoagulation for interval evidence of likely PV and SMV thrombus - reports ongoing abdominal pain today,has tolerated only minimal clears Medications Scheduled Meds: ??? DISCONTD: INPATIENT CARE MANAGER RN ventura ??? enoxaparin 100 mg Subcutaneous Q12H ABDIEL ??? fluticasone-salmeterol 1 puff Inhalation Q12H ??? levothyroxine 75 mcg Oral Daily ??? esomeprazole 40 mg Oral Daily ??? sodium chloride 0.9 % 5 mL Intravenous Q12H ??? senna-docusate 1-4 tablet Oral BID ??? nystatin 500,000 Units Oral 4 Times Daily Continuous Infusions: ??? DISCONTD: HYDROmorphone Stopped (04/01/11 0800) ??? sodium chloride 0.9% with potassium chloride 20 mEq 125 mL/hr (04/01/11 1441) ??? DISCONTD: naloxone ??? DISCONTD: INPATIENT CARE MANAGER RN ventura PRN Meds:.HYDROmorphone, HYDROmorphone (PF), HYDROmorphone (PF), iohexol, albuterol, polyethylene glycol, bisacodyl, acetaminophen, ondansetron, ondansetron, bisacodyl, DISCONTD: diphenhydrAMINE, DISCONTD: naloxone, DISCONTD: prochlorperazine Allergies Allergen Reactions ??? House Dust CIS - Allergic Rhinitis ??? Percocet (Oxycodone-acetaminophen) Other (See Comments) Dizziness Physical Examination: Filed Vitals: 04/01/11 1800 BP: 142/70 Pulse: 80 Temp: 36.7 ??C (98.1 ??F) Resp: 18 General: Tired appearing but in no acute distress HEENT: NCAT, EOMI, sclera anicteric Chest: CTA anterior and posterior Cor: Regular Abd: Non-distended, healed abdominal incision, soft. Reports tenderness to palpation in epigastrium Ext: No edema Imaging: Reviewed in EMR Assessment/Recommendation: Vladimir Jones is a 60 year old female without significant prior medical history who is currently admitted with abdominal pain after reported complicated perforated appendicitis requiring open resection who now presents with one week of abdominal pain. Initial imaging raisedquestion of pancreatitis although relationship to prior history was not obvious. Since that time subsequent imaging has raised concern for portal vein and SMV thrombus which is a more likely unifyingdiagnosis given recent surgical history. Ms. Jones reports ongoing abdominal discomfort likely related to venous congestion. There is no evidence of bowel compromise at this time and therapeutic anti- coagulation with anticipation of eventual re-cannalization. There does not appear to be any indication for invasive intervention at this time. - agree with system anti-coagulation - agree with analgesia and advancing diet as tolerated. I have seen and examined Mrs. Jones with Dr. Suresh Angel. I have reviewed Dr. Angel's note including the history and physical exam. I agree with the details as written. The assessment and plan were formulated in discussion with me and I agree with them as documented. * Carly Meyer LD - 04/01/2011 11:46 AM EST Nutrition Services Diagnosis:Patient Active Problem List Diagnoses Code ??? Abdominal pain 789.00AP ??? Hypothyroid 244.9AR ??? Superior mesenteric vein thrombosis 557.0CS PMH:Past Medical History Diagnosis Date ??? Hypothyroid ??? GERD (gastroesophageal reflux disease) ??? Asthma Weight: 102.7 kg Labs: Results for VLADIMIR JONES ( ) as of 04/01/2011 11:47 Ref. Range 03/31/2011 03:55 Albumin Latest Range: 3.2-5.2 gm/dL 3.1 (L) Patient has been NPO and/or on clear liquids for 5 days. If diet can not be advanced within 24 hours, please consider alternative means of nutrition support. * Sreekanth Lucas MD - 04/01/2011 8:23 AM EST Inpatient Hospital Medicine - Progress Note Admit Date: 03/27/2011 Hospital Day 5 days Problem List: Active Hospital Problems Diagnoses ??? Superior mesenteric vein thrombosis ??? Abdominal pain Resolved Hospital Problems Diagnoses Date Resolved ??? Elevated alkaline phosphatase level 04/01/2011 ??? Acute pancreatitis 04/01/2011 ??? Nausea 04/01/2011 Active Non-Hospital Problems Diagnoses ??? Hypothyroid Subjective: Feeling better this morning. Concerned that she may be seeing things that are not there and worriedabout her pain medications being the cause of this. I don't want any part of that addict world, she says. Physical Exam: Last Set of Vitals and range of vitals over past 24 hours: Last value Range last 24 hrs Temperature Temp: 36.7 ??C (98.1 ??F) Temp: [36.3 ??C (97.3 ??F)-36.7 ??C (98.1 ??F)] Heart Rate Heart Rate: 96 Heart Rate: [69-96] Blood Pressure BP: 150/80 mmHg BP: (134-150)/(70-80) Respiratory Rate Resp: 18 Resp: [18-20] SpO2 SpO2: 97 % SpO2: [97 %-98 %] Physical Exam Constitutional: She is oriented to person, place, and time. She appears well- developed and well-nourished. No distress. HENT: Head: Normocephalic and atraumatic. Mouth/Throat: No oropharyngeal exudate. Eyes: EOM are normal. Pupils are equal, round, and reactive to light. No scleral icterus. Neck: Normal range of motion. Neck supple. No JVD present. Cardiovascular: Normal rate, regular rhythm and normal heart sounds. Exam reveals no gallop and no friction rub. No murmur heard. Pulmonary/Chest: Effort normal and breath sounds normal. No respiratory distress. She has no wheezes. She has no rales. Abdominal: Soft. Bowel sounds are normal. She exhibits no distension. No tenderness. She has no rebound and no CVA tenderness. No hernia. Well healing sites from previous laparoscopy Lymphadenopathy: She has no cervical adenopathy. Neurological: She is alert and oriented to person, place, and time. No cranial nerve deficit. Skin: Skin is warm and dry. No erythema. Psychiatric: She has a normal mood and affect. Laboratory (Last 24 Hours): Lab Results Component Value Date CREATININE 0.35* 04/01/2011 Lab Results Component Value Date NA 136 04/01/2011 K 4.0 04/01/2011 CL 97* 04/01/2011 CO2 28 04/01/2011 Lab Results Component Value Date ALT 44* 03/31/2011 AST 26 03/31/2011 GGT 138* 03/29/2011 ALKPHOS 192* 03/31/2011 BILITOT 0.4 03/31/2011 Lab Results Component Value Date WBC 5.7 04/01/2011 HGB 11.8 04/01/2011 HCT 35.4 04/01/2011 MCV 95.4* 04/01/2011 PLATELET 246 04/01/2011 Lab Results Component Value Date TRIG 59 03/29/2011 CT abdomen/pelvis 03/28/2011 1. Findings concerning for possible acute pancreatitis. 2. No free air or free fluid. 3. Status post cholecystectomy. 4. Unremarkable small bowel/colon anastomosis. RUQ ultrasound 03/30/2011 1. No evidence of choledocholithiasis. 2. Enlarged CBD, 13mm, post cholecystectomy. 3. Enlarged and echogenic pancreas consistent with patients known pancreatitis. MRI cholangiopancreatography 03/30/2011 1. No evidence of choledocholithiasis. 2. Loss of normal flow void throughout the portal vein and its branches suggestive of portal venousthrombosis. Additionally, the SMV appears expanded also raising the possibility of intraluminal thrombus. Assessment: This is a very nice 60-year-old lady with past medical history of hypothyroidism and recent appendectomy and right hemicolectomy here with acute onset of RUQ/epigastric abdominal pain status post extensive workup at [facility] essentially unrevealing with imaging here consistent with likely new SMV thrombosis, now on anticoagulation. Plan: 1. SMV thrombosis. Imaging and presentation consistent with pancreatitis but biochemically normal, likely all from the thrombus. Advancing diet slowly. Obtaining mesenteric ultrasound today for further characterization. Anticoagulation with enoxaparin. Likely secondary to immobility within the past month from her previous surgery. 2. Possible obstructive sleep apnea. Nursing note desaturations while sleeping, and body habitus issuch that ZIA would not be surprising. Supplemental oxygen for now and recommend outpatient sleep study to PCP. 3. Hypothyroidism. Continue levothyroxine. 4. F/E/N. Monitor/optimize electrolytes. NPO. 5. DVT prophylaxis with full-strength enoxaparin for clot as above. 6. Full code. 7. MD pager [phone] 24 hours/day. SREEKANTH LUCAS MD 04/01/2011 * Sreekanth Lucas MD - 03/31/2011 6:42 PM EST Inpatient Hospital Medicine - Progress Note Admit Date: 03/27/2011 Hospital Day 4 days Problem List: No resolved problems to display. Active Hospital Problems Diagnoses ??? Acute pancreatitis ??? Abdominal pain ??? Elevated alkaline phosphatase level ??? Nausea Resolved Hospital Problems Diagnoses Date Resolved Active Non-Hospital Problems Diagnoses ??? Hypothyroid Subjective: Acute episode of increased pain early this morning that resolved with additional hydromorphone. Nowfeeling much better. Physical Exam: Last Set of Vitals and range of vitals over past 24 hours: Last value Range last 24 hrs Temperature Temp: 36.6 ??C (97.9 ??F) Temp: [36.3 ??C (97.3 ??F)-36.8 ??C (98.2 ??F)] Heart Rate Heart Rate: 70 Heart Rate: [69-88] Blood Pressure BP: 140/70 mmHg BP: (134-164)/(70-90) Respiratory Rate Resp: 18 Resp: [18-20] SpO2 SpO2: 97 % SpO2: [92 %-98 %] Physical Exam Constitutional: She is oriented to person, place, and time. She appears well- developed and well-nourished. No distress. HENT: Head: Normocephalic and atraumatic. Mouth/Throat: No oropharyngeal exudate. Eyes: EOM are normal. Pupils are equal, round, and reactive to light. No scleral icterus. Neck: Normal range of motion. Neck supple. No JVD present. Cardiovascular: Normal rate, regular rhythm and normal heart sounds. Exam reveals no gallop and no friction rub. No murmur heard. Pulmonary/Chest: Effort normal and breath sounds normal. No respiratory distress. She has no wheezes. She has no rales. Abdominal: Soft. Bowel sounds are normal. She exhibits no distension. Tenderness is present in the epigastric area. She has no rebound and no CVA tenderness. No hernia. Well healing sites from previous laparoscopy Lymphadenopathy: She has no cervical adenopathy. Neurological: She is alert and oriented to person, place, and time. No cranial nerve deficit. Skin: Skin is warm and dry. No erythema. Psychiatric: She has a normal mood and affect. Laboratory (Last 24 Hours): Lab Results Component Value Date CREATININE 0.33* 03/31/2011 Lab Results Component Value Date NA 139 03/31/2011 K 4.1 03/31/2011 CL 101 03/31/2011 CO2 26 03/31/2011 Lab Results Component Value Date ALT 44* 03/31/2011 AST 26 03/31/2011 GGT 138* 03/29/2011 ALKPHOS 192* 03/31/2011 BILITOT 0.4 03/31/2011 Lab Results Component Value Date WBC 6.0 03/31/2011 HGB 11.4 03/31/2011 HCT 34.9 03/31/2011 MCV 95.9* 03/31/2011 PLATELET 229 03/31/2011 Lab Results Component Value Date TRIG 59 03/29/2011 CT abdomen/pelvis 03/28/2011 1. Findings concerning for possible acute pancreatitis. 2. No free air or free fluid. 3. Status post cholecystectomy. 4. Unremarkable small bowel/colon anastomosis. RUQ ultrasound 03/30/2011 1. No evidence of choledocholithiasis. 2. Enlarged CBD, 13mm, post cholecystectomy. 3. Enlarged and echogenic pancreas consistent with patients known pancreatitis. MRI cholangiopancreatography 03/30/2011 1. No evidence of choledocholithiasis. 2. Loss of normal flow void throughout the portal vein and its branches suggestive of portal venousthrombosis. Additionally, the SMV appears expanded also raising the possibility of intraluminal thrombus. Assessment: This is a very nice 60-year-old lady with past medical history of hypothyroidism and recent appendectomy and right hemicolectomy here with acute onset of RUQ/epigastric abdominal pain status post extensive workup at [facility] essentially unrevealing with imaging here consistent with likely new SMV thrombosis. Plan: 1. SMV thrombosis. Imaging and presentation consistent with pancreatitis but biochemically normal, likely all from the thrombus. Advancing diet slowly. Obtain repeat imaging to assess vascular structures. Anticoagulation with enoxaparin. 2. Possible obstructive sleep apnea. Nursing note desaturations while sleeping, and body habitus issuch that ZIA would not be surprising. Supplemental oxygen for now and recommend outpatient sleep study to PCP. 3. Hypothyroidism. Continue levothyroxine. 4. F/E/N. Monitor/optimize electrolytes. NPO. 5. DVT prophylaxis with enoxaparin. 6. Full code. 7. MD pager [phone] 24 hours/day. SREEKANTH LUCAS MD 03/31/2011 * Sreekanth Lucas MD - 03/30/2011 12:07 PM EST Inpatient Hospital Medicine - Progress Note Admit Date: 03/27/2011 Hospital Day 3 days Problem List: No resolved problems to display. Active Hospital Problems Diagnoses ??? Acute pancreatitis ??? Abdominal pain ??? Elevated alkaline phosphatase level ??? Nausea Resolved Hospital Problems Diagnoses Date Resolved Active Non-Hospital Problems Diagnoses ??? Hypothyroid Subjective: Patient states she thinks pain is overall better controlled. Pain much better with low-dose continuous rate and smaller doses of INPATIENT CARE MANAGER RN available. Physical Exam: Last Set of Vitals and range of vitals over past 24 hours: Last value Range last 24 hrs Temperature Temp: 36.9 ??C (98.4 ??F) Temp: [36.6 ??C (97.9 ??F)-37.7 ??C (99.9 ??F)] Heart Rate Heart Rate: 83 Heart Rate: [72-83] Blood Pressure BP: 138/78 mmHg BP: (122-180)/(60-90) Respiratory Rate Resp: 20 Resp: [18-20] SpO2 SpO2: 88 % SpO2: [88 %-99 %] Physical Exam Constitutional: She is oriented to person, place, and time. She appears well- developed and well-nourished. No distress. HENT: Head: Normocephalic and atraumatic. Mouth/Throat: No oropharyngeal exudate. Eyes: EOM are normal. Pupils are equal, round, and reactive to light. No scleral icterus. Neck: Normal range of motion. Neck supple. No JVD present. Cardiovascular: Normal rate, regular rhythm and normal heart sounds. Exam reveals no gallop and no friction rub. No murmur heard. Pulmonary/Chest: Effort normal and breath sounds normal. No respiratory distress. She has no wheezes. She has no rales. Abdominal: Soft. Bowel sounds are normal. She exhibits no distension. Tenderness is present in the epigastric area. She has no rebound and no CVA tenderness. No hernia. Well healing sites from previous laparoscopy Lymphadenopathy: She has no cervical adenopathy. Neurological: She is alert and oriented to person, place, and time. No cranial nerve deficit. Skin: Skin is warm and dry. No erythema. Psychiatric: She has a normal mood and affect. Laboratory (Last 24 Hours): Lab Results Component Value Date CREATININE 0.44* 03/29/2011 Lab Results Component Value Date NA 135 03/29/2011 K 4.3 03/29/2011 CL 101 03/29/2011 CO2 29 03/29/2011 Lab Results Component Value Date ALT 48* 03/29/2011 AST 20 03/29/2011 GGT 138* 03/29/2011 ALKPHOS 199* 03/29/2011 BILITOT 0.6 03/29/2011 Lab Results Component Value Date WBC 5.9 03/30/2011 HGB 11.6 03/30/2011 HCT 34.2 03/30/2011 MCV 97.4* 03/30/2011 PLATELET 193 03/30/2011 Lab Results Component Value Date TRIG 59 03/29/2011 CT abdomen/pelvis 03/28/2011 1. Findings concerning for possible acute pancreatitis. 2. No free air or free fluid. 3. Status post cholecystectomy. 4. Unremarkable small bowel/colon anastomosis. RUQ ultrasound 03/30/2011 1. No evidence of choledocholithiasis. 2. Enlarged CBD, 13mm, post cholecystectomy. 3. Enlarged and echogenic pancreas consistent with patients known pancreatitis. Assessment: This is a very nice 60-year-old lady with past medical history of hypothyroidism and recent appendectomy and right hemicolectomy here with acute onset of RUQ/epigastric abdominal pain status post extensive workup at [facility] essentially unrevealing with imaging here consistent with pancreatitis and newly found dilated CBD. Plan: 1. Acute pancreatitis. Imaging and presentation consistent with pancreatitis but biochemically normal. NPO, hydration, pain control with hydromorphone INPATIENT CARE MANAGER RN. Triglycerides within normal limits. No significant alcohol history. RUQ findings as above, will discuss with GI to see if patient needs ERCP for dilation/sphincterotomy/etc. 2. Possible obstructive sleep apnea. Nursing note desaturations while sleeping, and body habitus issuch that ZIA would not be surprising. Supplemental oxygen for now and recommend outpatient sleep study to PCP. 3. Hypothyroidism. Continue levothyroxine. 4. F/E/N. Monitor/optimize electrolytes. NPO. 5. DVT prophylaxis with enoxaparin. 6. Full code. 7. MD pager [phone] 24 hours/day. SREEKANTH LUCAS MD 03/30/2011 * Ariel Pate - 03/30/2011 11:30 AM EST Office of Care Management, CRC Initial assessment Note: Patient reviewed in multidisciplinary rounds. Record reviewed and introduced/reviewed CRC role withpatient and family. Patient accepted services. ?? Hospital course: Per MD note, pt admitted with a history of hypothyroidism and recent appendectomy and right hemicolectomy here with acute onset of RUQ/epigastric abdominal pain status post extensive workup at [facility] essentially unrevealing with imaging at [facility] consistent with pancreatitis. ?? 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 Has two x adult sons (one in [place] [facility] [place] and eight grandchildren ?? PCP: MARIO NOWAK APRN ?? Healthcare maintenance/CCM: As above, primary care in [place] [facility] ?? Baseline functional status/mobility: Independent ?? Current functional status/mobility: Independent ?? [facility] Program: Not appropriate for [facility] team at this time ?? Current home/community services/equipment: None currently ?? Advanced directives: None listed in e- ?? Insurance coverage: Insured with [employer], through spouse ?? 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 Anticipated barriers to discharge: Concerns r/t managing at home, stating that her spouse has likely used up all his time from work ?? 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 [employer] Laboratory Assistant referral indicated: Not indicated at this time ?? Transportation at discharge: Private with family ?? Anticipated discharge needs: None indicated at this time ?? Identified patient/family concerns r/t discharge: Concerns r/t medical bills. Lab Director at [facility] is Raya Vazquez, per pt. Attempt made to connect with lead case manager. Team - Hospitalist team, pager [phone], Dr. Lucas [facility]- Ariel Pate, RN, pager [phone] * Lyla Vines RN - 03/29/2011 6:37 PM EST At 1800 pt. BP was 178/90. Pt. Asymptomatic, having pain at this time. Dr. Knox notified and will recheck in 1 hour. * Sreekanth Lucas MD - 03/29/2011 9:33 AM EST Inpatient Hospital Medicine - Progress Note Admit Date: 03/27/2011 Hospital Day 2 days Problem List: No resolved problems to display. Active Hospital Problems Diagnoses ??? Acute pancreatitis ??? Abdominal pain ??? Elevated alkaline phosphatase level ??? Nausea Resolved Hospital Problems Diagnoses Date Resolved Active Non-Hospital Problems Diagnoses ??? Hypothyroid Subjective: Patient still with intermittent pain, got very sleepy with continuous dosing on INPATIENT CARE MANAGER RN so this was stopped. Overall still feeling much better this morning. Physical Exam: Last Set of Vitals and range of vitals over past 24 hours: Last value Range last 24 hrs Temperature Temp: 36.8 ??C (98.2 ??F) Temp: [36.8 ??C (98.2 ??F)] Heart Rate Heart Rate: 92 Heart Rate: [70-92] Blood Pressure BP: 164/84 mmHg BP: (108-164)/(68-86) Respiratory Rate Resp: 22 Resp: [16-22] SpO2 SpO2: 92 % SpO2: [91 %-98 %] Physical Exam Constitutional: She is oriented to person, place, and time. She appears well- developed and well-nourished. No distress. HENT: Head: Normocephalic and atraumatic. Mouth/Throat: No oropharyngeal exudate. Eyes: EOM are normal. Pupils are equal, round, and reactive to light. No scleral icterus. Neck: Normal range of motion. Neck supple. No JVD present. Cardiovascular: Normal rate, regular rhythm and normal heart sounds. Exam reveals no gallop and no friction rub. No murmur heard. Pulmonary/Chest: Effort normal and breath sounds normal. No respiratory distress. She has no wheezes. She has no rales. Abdominal: Soft. Bowel sounds are normal. She exhibits no distension. Tenderness is present in the epigastric area. She has no rebound and no CVA tenderness. No hernia. Well healing sites from previous laparoscopy Lymphadenopathy: She has no cervical adenopathy. Neurological: She is alert and oriented to person, place, and time. No cranial nerve deficit. Skin: Skin is warm and dry. No erythema. Psychiatric: She has a normal mood and affect. Laboratory (Last 24 Hours): Lab Results Component Value Date CREATININE 0.44* 03/29/2011 Lab Results Component Value Date NA 135 03/29/2011 K 4.3 03/29/2011 CL 101 03/29/2011 CO2 29 03/29/2011 Lab Results Component Value Date ALT 48* 03/29/2011 AST 20 03/29/2011 GGT 138* 03/29/2011 ALKPHOS 199* 03/29/2011 BILITOT 0.6 03/29/2011 Lab Results Component Value Date WBC 6.8 03/29/2011 HGB 11.5 03/29/2011 HCT 34.7 03/29/2011 MCV 96.1* 03/29/2011 PLATELET 194 03/29/2011 Lab Results Component Value Date TRIG 59 03/29/2011 CT abdomen/pelvis 03/28/2011 1. Findings concerning for possible acute pancreatitis. 2. No free air or free fluid. 3. Status post cholecystectomy. 4. Unremarkable small bowel/colon anastomosis. Assessment: This is a very nice 60-year-old lady with past medical history of hypothyroidism and recent appendectomy and right hemicolectomy here with acute onset of RUQ/epigastric abdominal pain status post extensive workup at [facility] essentially unrevealing with imaging here consistent with pancreatitis. Plan: 1. Acute pancreatitis. Imaging and presentation consistent with pancreatitis but biochemically normal. NPO, aggressive hydration, pain control with hydromorphone INPATIENT CARE MANAGER RN. Triglycerides within normal limits. No significant alcohol history. Obtain RUQ ultrasound to assess CBD as was slightly dilated on CT abdomen/pelvis. Status post cholecystectomy but may have choledocholithiasis. 2. Possible obstructive sleep apnea. Nursing note desaturations while sleeping, and body habitus issuch that ZIA would not be surprising. Supplemental oxygen for now and recommend outpatient sleep study to PCP. 3. Hypothyroidism. Continue levothyroxine. 4. F/E/N. Monitor/optimize electrolytes. NPO. 5. DVT prophylaxis with enoxaparin. 6. Full code. 7. MD pager [phone] 24 hours/day. SREEKANTH LUCAS MD 03/29/2011 * Sreekanth Lucas MD - 03/28/2011 3:51 PM EST Inpatient Hospital Medicine - Progress Note Admit Date: 03/27/2011 Hospital Day 1 day Problem List: No resolved problems to display. Active Hospital Problems Diagnoses ??? Acute pancreatitis ??? Abdominal pain ??? Elevated alkaline phosphatase level ??? Nausea Resolved Hospital Problems Diagnoses Date Resolved Active Non-Hospital Problems Diagnoses ??? Hypothyroid 24 Hour Events: Feeling much better on hydromorphone INPATIENT CARE MANAGER RN Subjective: Pain was stabbing and very poorly controlled earlier this morning, now much better controlled on INPATIENT CARE MANAGER RN. at bedside. Physical Exam: Last Set of Vitals and range of vitals over past 24 hours: Last value Range last 24 hrs Temperature Temp: 36.8 ??C (98.2 ??F) Temp: [36.7 ??C (98.1 ??F)-37.1 ??C (98.8 ??F)] Heart Rate Heart Rate: 79 Heart Rate: [75-105] Blood Pressure BP: 148/76 mmHg BP: (126-158)/(71-86) Respiratory Rate Resp: 18 Resp: [14-18] SpO2 SpO2: 95 % SpO2: [93 %-98 %] Physical Exam Constitutional: She is oriented to person, place, and time. She appears well- developed and well-nourished. No distress. HENT: Head: Normocephalic and atraumatic. Mouth/Throat: No oropharyngeal exudate. Eyes: EOM are normal. Pupils are equal, round, and reactive to light. No scleral icterus. Neck: Normal range of motion. Neck supple. No JVD present. Cardiovascular: Normal rate, regular rhythm and normal heart sounds. Exam reveals no gallop and no friction rub. No murmur heard. Pulmonary/Chest: Effort normal and breath sounds normal. No respiratory distress. She has no wheezes. She has no rales. Abdominal: Soft. Bowel sounds are normal. She exhibits no distension. Tenderness is present in the epigastric area. She has no rebound and no CVA tenderness. No hernia. Well healing sites from previous laparoscopy Lymphadenopathy: She has no cervical adenopathy. Neurological: She is alert and oriented to person, place, and time. No cranial nerve deficit. Skin: Skin is warm and dry. No erythema. Psychiatric: She has a normal mood and affect. Laboratory (Last 24 Hours): Recent Results (from the past 24 hour(s)) CBC (WITH DIFF) Component Value Range ??? WBC 10.4 (*) 4.0 - 10.0 (x10(3)/mcL) ??? RBC 3.82 (*) 3.93 - 5.22 (x10(6)/mcL) ??? Hemoglobin 12.4 11.2 - 15.7 (gm/dL) ??? Hematocrit 36.0 34.0 - 45.0 (%) ??? MCV 94.2 (*) 79.0 - 94.0 (fL) ??? MCH 32.5 (*) 26.6 - 32.2 (pg) ??? MCHC 34.4 32.0 - 36.5 (gm/dL) ??? Platelets 175 145 - 370 (x10(3)/mcL) ??? RDWSD 43.7 35.0 - 46.0 (fL) ??? RDWCV 12.7 10.9 - 14.4 (%) ??? MPV 10.6 9.0 - 12.0 (fL) ELECTROLYTES PANEL Component Value Range ??? Sodium 136 135 - 145 (mmol/L) ??? Potassium 4.2 3.5 - 5.0 (mmol/L) ??? Chloride 99 98 - 107 (mmol/L) ??? CO2 28 22 - 31 (mmol/L) ??? Anion Gap 9 5 - 15 (mmol/L) BUN Component Value Range ??? BUN 9 8 - 18 (mg/dL) CREATININE, SERUM Component Value Range ??? Creatinine 0.55 (*) 0.70 - 1.20 (mg/dL) ? ? Estimated GFR >60 >=60 GLUCOSE, RANDOM Component Value Range ??? Glucose Lvl 94 60 - 199 (mg/dL) HEPATIC FUNCTION PANEL Component Value Range ??? Total Protein 6.8 6.4 - 8.3 (gm/dL) ??? Albumin 3.9 3.2 - 5.2 (gm/dL) ??? AST 35 (*) 0 - 30 (unit/L) ??? ALT 80 (*) 0 - 30 (unit/L) ??? Alk Phos 215 (*) 40 - 104 (unit/L) ??? Total Bilirubin 0.8 0.2 - 1.3 (mg/dL) ??? Bili, Direct 0.3 0.0 - 0.3 (mg/dL) LIPASE Component Value Range ??? Lipase 17 0 - 60 (unit/L) DIFFERENTIAL, AUTOMATED Component Value Range ??? Neutrophils % 66.4 34.0 - 71.0 (%) ??? Neutr Abs (ANC) 6.89 (*) 1.50 - 6.30 (x10(3)/mcL) ??? Lymphocytes % 15.2 (*) 19.0 - 53.0 (%) ??? Lymphocytes Abs 1.6 1.0 - 3.6 (x10(3)/mcL) ??? Monocytes % 16.4 (*) 4.0 - 13.0 (%) ??? Monocyte Abs 1.7 (*) 0.2 - 1.0 (x10(3)/mcL) ??? Eosinophils % 1.3 0.0 - 7.0 (%) ??? Eosinophils Abs 0.1 0.0 - 0.5 (x10(3)/mcL) ??? Basophils % 0.4 0.0 - 2.0 (%) ??? Basophils Abs 0.0 0.0 - 0.2 (x10(3)/mcL) ??? Immature Gran % 0.30 0.00 - 0.66 (%) ??? Philomena Gran Abs 0.03 0.00 - 0.05 (x10(3)/mcL) SCAN, PERIPHERAL BLOOD Component Value Range ??? Plat Estimate Normal ??? RBC Morphology Abnormal ??? Ovalocytes 1-5 (/HPF) ??? [place] Cells 1-5 (/HPF) NUCLEATED RED BLOOD CELLS Component Value Range ??? nRBC % Auto 0.0 0.0 - 0.2 (%) ??? nRBC Abs Auto 0.000 0.000 - 0.012 (x10(3)/mcL) POCT URINE DIPSTICK Component Value Range ??? POC Sp [place] 1.010 1.002 - 1.030 ??? POC pH, UA 8 5.0 - 8.5 ??? POC Leuk, UA neg Negative - Negative ??? POC Nitrite, UA neg Negative - Negative ??? POC Protein, UA neg Negative - Negative (mg/dL) ??? POC Glucose, UA neg Normal - Normal (mg/dL) ??? POC Ketone, UA neg Negative - Negative ??? POC Urobil, UA ++ 0.2 - 1.0 (mg/dL) ??? POC Bili, UA ++ Negative - Negative ??? POC Blood, UA neg Negative - Negative (karishma/uL) CT abdomen/pelvis 03/28/2011 1. Findings concerning for possible acute pancreatitis. 2. No free air or free fluid. 3. Status post cholecystectomy. 4. Unremarkable small bowel/colon anastomosis. Assessment: This is a very nice 60-year-old lady with past medical history of hypothyroidism and recent appendectomy and right hemicolectomy here with acute onset of RUQ/epigastric abdominal pain status post extensive workup at [facility] essentially unrevealing with imaging here consistent with pancreatitis. Plan: 1. Acute pancreatitis. Imaging and presentation consistent with pancreatitis but biochemically normal. NPO, aggressive hydration, pain control with hydromorphone INPATIENT CARE MANAGER RN. Check triglycerides, GGT, repeatultrasound to assess for choledocholithiasis. No significant history of alcohol abuse. 2. F/E/N. Monitor/optimize electrolytes. NPO. 3. DVT prophylaxis with enoxaparin. 4. Full code. 5. pager [phone] 24 hours/day. SREEKANTH LUCAS MD 03/28/2011 * Eliana Mosquera LD - 03/28/2011 2:06 PM EST Nutrition Services-Initial Assessment S: My last full meal was one wk ago, but it was very small amounts. I just don't have any appetite. O: Dx:Patient Active Problem List Diagnoses Code ??? Abdominal pain 789.00AP ??? Elevated alkaline phosphatase level 790.5BH ??? Hypothyroid 244.9AR Past Medical History Diagnosis Date ??? Hypothyroid ??? GERD (gastroesophageal reflux disease) ??? Asthma Diet:Regular -> NPO Appetite: continues poor Labs include:Lab Results Component Value Date Sodium 136 03/27/2011 Potassium 4.2 03/27/2011 Chloride 99 03/27/2011 CO2 28 03/27/2011 BUN 9 03/27/2011 Creatinine 0.55* 03/27/2011 Glucose Lvl 94 03/27/2011 Wt Readings from Last 3 Encounters: 03/28/11 100.7 kg (222 lb 0.1 oz) Ht:158.7cm BMI:40 A: Pt seen per request for poor appetite and po intake. She reports having lost 14 lbs and since regained 8lbs of this in the past week, in spite of eating very little. Question fluid changes? She reports her most recent meal being 1 week ago, and she is only able to tolerate 1-3 bites of food here. She has no appetite and up until very recently was very nauseous. Education provided for high protein, high calorie food choices to maximize intake when her appetite is so poo, and once her diet advances.. P: 1. If cannot advance diet within the next 24-48hrs, consider nutrition support for this pt who has already had inadequate nutrition for 1 week. 2. Suggest daily multivitamin with minerals.t. 3 Will follow along with team as medical plan of care progresses. documented in this encounter H&P Notes * Cynthia Monsalve MD - 03/27/2011 11:43 PM EST Inpatient Hospital Medicine - Admission Note Problem List: No resolved problems to display. Active Hospital Problems Diagnoses ??? Abdominal pain ??? Elevated alkaline phosphatase level Resolved Hospital Problems Diagnoses Date Resolved Active Non-Hospital Problems Diagnoses ??? Hypothyroid ID: 60 y.o. Female presents to [facility] with abdominal pain History of Present Illness: HPI 60 yo with recent onset of abdominal pain. She was in [place] in February, developed abdominal pain from Feb 14- and eventually sought medical care and had an appendectomy. At the time of the surgery she was noted to have a thickening of her cecum and she had a right hemicolectomy. Apparently the pathology showed only inflammation and not cancer. She had a course of antibiotics. In early March, she was given Keflex for concern of a wound infection, which resolved. When she retuned home, she wasOK, but then developed nausea and acute abdominal pain Wednesday of this week. She was admitted to [facility] Where she had a CT scan which showed only an adenexal mass - follow-up ultrasound was done which was consistent with an ovary. RUQ ultrasound was done due to mild increase in LFT's, which showed mild dilation at 13mm. Alk phos was elevated bilirubin was normal. EGD was also done with biopsies pending, but no gross abnormality was noted. She was discharged with PO pain meds today, left the hospital and decided to come to [facility] due to persistent pain. Symptomatically, she has nausea, no vomiting. Controlled with zofran. Abdominal pain is located in the center in the epigastrum, radiates to the back. No diarrhea. Had had constipation since Wednesday. Eating small amounts. Last ate this AM Review of Systems: Review of Systems Constitutional: Negative for fever and chills. Lost 14lbs since this began, gained back 8lbs this week. HENT: Negative. Eyes: Negative. Respiratory: Negative. Cardiovascular: Negative. Gastrointestinal: Positive for nausea, abdominal pain and constipation. Negative for vomiting. Genitourinary: Negative. Musculoskeletal: Negative. Skin: Negative. Neurological: Negative. Past Medical and Surgical History: Past Medical History Diagnosis Date ??? Hypothyroid ??? GERD (gastroesophageal reflux disease) ??? Asthma Past Surgical History Procedure Date ??? Cholecystectomy ??? Hysterectomy ??? Appendectomy ??? Hemicolectomy right ??? Ovary removal right Prior To Admission Medications: Allergies: Allergies Allergen Reactions ??? House Dust CIS - Allergic Rhinitis ??? Percocet (Oxycodone-acetaminophen) Other (See Comments) Dizziness Family History: No family history on file. Social History and Habits: History Social History ??? Marital Status: Spouse Name: N/A Number of Children: N/A ??? Years of Education: N/A Occupational History ??? Not on file. Social History Main Topics ??? Smoking status: Never Smoker ??? Smokeless tobacco: Not on file ??? Alcohol Use: No ??? Drug Use: No ??? Sexually Active: Other Topics Concern ??? Not on file Social History Narrative ??? No narrative on file Immunizations: There is no immunization history on file for this patient. Physical Exam: Last Set of Vitals and range of vitals over past 24 hours: Last value Range last 24 hrs Temperature Temp: 36.7 ??C (98.1 ??F) Temp: [36.7 ??C (98.1 ??F)-37 ??C (98.6 ??F)] Heart Rate Heart Rate: 80 Heart Rate: [75-80] Blood Pressure BP: 141/72 mmHg BP: (126-141)/(71-72) Respiratory Rate Resp: 16 Resp: [16-18] SpO2 SpO2: 96 % SpO2: [96 %] Physical Exam In NAD OP clear Chest CTAB Cor: S1, S2, no M/R/G Abd: epigastric tenderness to palpation, no guarding. Soft. Ext: no C/C/E Skin, no rash Laboratory (Last 24 Hours): Results for orders placed during the hospital encounter of 03/27/11 (from the past 24 hour(s)) CBC (WITH DIFF) Component Value Range ??? WBC 10.4 (*) 4.0 - 10.0 (x10(3)/mcL) ??? RBC 3.82 (*) 3.93 - 5.22 (x10(6)/mcL) ??? Hemoglobin 12.4 11.2 - 15.7 (gm/dL) ??? Hematocrit 36.0 34.0 - 45.0 (%) ??? MCV 94.2 (*) 79.0 - 94.0 (fL) ??? MCH 32.5 (*) 26.6 - 32.2 (pg) ??? MCHC 34.4 32.0 - 36.5 (gm/dL) ??? Platelets 175 145 - 370 (x10(3)/mcL) ??? RDWSD 43.7 35.0 - 46.0 (fL) ??? RDWCV 12.7 10.9 - 14.4 (%) ??? MPV 10.6 9.0 - 12.0 (fL) ELECTROLYTES PANEL Component Value Range ??? Sodium 136 135 - 145 (mmol/L) ??? Potassium 4.2 3.5 - 5.0 (mmol/L) ??? Chloride 99 98 - 107 (mmol/L) ??? CO2 28 22 - 31 (mmol/L) ??? Anion Gap 9 5 - 15 (mmol/L) BUN Component Value Range ??? BUN 9 8 - 18 (mg/dL) CREATININE, SERUM Component Value Range ??? Creatinine 0.55 (*) 0.70 - 1.20 (mg/dL) ? ? Estimated GFR >60 >=60 GLUCOSE, RANDOM Component Value Range ??? Glucose Lvl 94 60 - 199 (mg/dL) HEPATIC FUNCTION PANEL Component Value Range ??? Total Protein 6.8 6.4 - 8.3 (gm/dL) ??? Albumin 3.9 3.2 - 5.2 (gm/dL) ??? AST 35 (*) 0 - 30 (unit/L) ??? ALT 80 (*) 0 - 30 (unit/L) ??? Alk Phos 215 (*) 40 - 104 (unit/L) ??? Total Bilirubin 0.8 0.2 - 1.3 (mg/dL) ??? Bili, Direct 0.3 0.0 - 0.3 (mg/dL) LIPASE Component Value Range ??? Lipase 17 0 - 60 (unit/L) DIFFERENTIAL, AUTOMATED Component Value Range ??? Neutrophils % 66.4 34.0 - 71.0 (%) ??? Neutr Abs (ANC) 6.89 (*) 1.50 - 6.30 (x10(3)/mcL) ??? Lymphocytes % 15.2 (*) 19.0 - 53.0 (%) ??? Lymphocytes Abs 1.6 1.0 - 3.6 (x10(3)/mcL) ??? Monocytes % 16.4 (*) 4.0 - 13.0 (%) ??? Monocyte Abs 1.7 (*) 0.2 - 1.0 (x10(3)/mcL) ??? Eosinophils % 1.3 0.0 - 7.0 (%) ??? Eosinophils Abs 0.1 0.0 - 0.5 (x10(3)/mcL) ??? Basophils % 0.4 0.0 - 2.0 (%) ??? Basophils Abs 0.0 0.0 - 0.2 (x10(3)/mcL) ??? Immature Gran % 0.30 0.00 - 0.66 (%) ??? Philomena Gran Abs 0.03 0.00 - 0.05 (x10(3)/mcL) SCAN, PERIPHERAL BLOOD Component Value Range ??? Plat Estimate Normal ??? RBC Morphology Abnormal ??? Ovalocytes 1-5 (/HPF) ??? [place] Cells 1-5 (/HPF) NUCLEATED RED BLOOD CELLS Component Value Range ??? nRBC % Auto 0.0 0.0 - 0.2 (%) ??? nRBC Abs Auto 0.000 0.000 - 0.012 (x10(3)/mcL) POCT URINE DIPSTICK Component Value Range ??? POC Sp [place] 1.010 1.002 - 1.030 ??? POC pH, UA 8 5.0 - 8.5 ??? POC Leuk, UA neg Negative - Negative ??? POC Nitrite, UA neg Negative - Negative ??? POC Protein, UA neg Negative - Negative (mg/dL) ??? POC Glucose, UA neg Normal - Normal (mg/dL) ??? POC Ketone, UA neg Negative - Negative ??? POC Urobil, UA ++ 0.2 - 1.0 (mg/dL) ??? POC Bili, UA ++ Negative - Negative ??? POC Blood, UA neg Negative - Negative (karishma/uL) Radiology: Abd films - no free air CT - pending Assessment: Abdominal pain - etiology not clear. With mild alk phos elevation and, reported hx of dilated duct,concern for biliary pathology. Will need to consider RUQ ultrasound, ?HIDA. She has no increase in bili though. Plan: ?? Admit to Medicine ?? CT scan ?? Consider RUQ ultrasound if no diagnosis by CT scan. ?? Consider GI consult in AM ?? DVT Prophylaxis ?? Pneumovax and Influenza Immunizations given as needed. ?? Discussed Advanced Directives and Code Status. The patient wishesto be Full Code. CYNTHIA MONSALVE MD 03/28/2011 documented in this encounter ED Notes * Leila Maddox RN - 03/28/2011 3:29 AM EST Report given to Kory Espitia and to floor nurse-1 jason. * Leila Maddox RN - 03/28/2011 2:54 AM EST IV placed by Kory Tavarez. Ct notified-pt ready for scan. * Leila Maddox RN - 03/28/2011 2:37 AM EST Pt and frustrated about wait for IV-page out to IV nurse x 4. Charge nurse and Dr Glass informed. * Leila Maddox RN - 03/28/2011 1:46 AM EST Call out to IV nurse x 2 for access, ct And Dr Glass informed-awaiting access for ct. * Estrellita Ferreira - 03/27/2011 11:34 PM EST PO contrast started for long prep. Pt placed on 2L oxygen. * Leila Maddox RN - 03/27/2011 10:51 PM EST Pt c/o of abd pain 10/ despite receiving additional dose of morphine [address] Llanes in to speak with pt. Pt sleepy. * Leila Maddox RN - 03/27/2011 9:55 PM EST Pt in x-ray. * Silas Llanes MD - 03/27/2011 8:59 PM EST Chief Complaint Patient presents with ??? Abdominal Pain Patient is a 60 y.o. female presenting with abdominal pain. The history is provided by the patient and the spouse. Abdominal Pain The primary symptoms of the illness include abdominal pain and nausea. The primary symptoms of the illness do not include vomiting or diarrhea. The current episode started more than 2 days ago. The onset of the illness was sudden. The abdominal pain is located in the epigastric region. The abdominal pain radiates to the back. The severity of the abdominal pain is 10/10. Relieved by: Narcotic pain medicine. The abdominal pain is exacerbated by movement and certain positions. The patient has had a change in bowel habit (Last bowel movement was Wednesday.). Risk factors for anacute abdominal problem include a history of abdominal surgery. Additional symptoms associated withthe illness include chills, anorexia and constipation. Symptoms associated with the illness do not include urgency, hematuria or frequency. Significant associated medical issues include GERD. The patient had an emergent appendectomy while visiting her family in [place] and at that time a righthemicolectomy was performed for concern for bowel thickening. Postoperatively, she did have a mild superficial wound infection but was doing otherwise well until her abdominal pain started 2 days ago. She was seen at [facility] where she was admitted. Workup included abdominal x-rays, CT, endoscopy with biopsies and abdominal and pelvic ultrasounds for a left adnexal mass. During this workup, the only finding was a dilated common bile duct to 13 mm an elevated alkaline phosphatase. Her bilirubins remained normal and she appeared to do well and was transitioned to oral pain medicine. She was discharged from hospital today but when the pain recurred she was told byher surgeon to come to [facility] for further evaluation. She does get good pain relief with the Vicodin. Her last dose was at 2:00 today. Allergies Allergen Reactions ??? House Dust CIS - Allergic Rhinitis ??? Percocet (Oxycodone-acetaminophen) Other (See Comments) Dizziness Review of Systems Constitutional: Positive for chills. HENT: Negative. Eyes: Negative. Respiratory: Negative. Cardiovascular: Negative. Gastrointestinal: Positive for nausea, abdominal pain, constipation and anorexia. Negative for vomiting, diarrhea, blood in stool, anal bleeding and rectal pain. Genitourinary: Negative. Negative for urgency, frequency and hematuria. Musculoskeletal: Negative. Skin: Negative. Neurological: Negative. Hematological: Negative. Psychiatric/Behavioral: Negative. All other systems reviewed and are negative. Physical Exam Constitutional: She is oriented to person, place, and time. Vital signs are normal. She appears well-developed and well-nourished. She appears distressed. HENT: Head: Normocephalic and atraumatic. Nose: Nose normal. Mouth/Throat: Oropharynx is clear and moist. Eyes: Conjunctivae and EOM are normal. Pupils are equal, round, and reactive to light. Neck: Normal range of motion. Neck supple. No thyromegaly present. Cardiovascular: Normal rate, regular rhythm and normal heart sounds. Exam reveals no gallop and no friction rub. No murmur heard. Pulmonary/Chest: Effort normal and breath sounds normal. No respiratory distress. She has no wheezes. She has no rales. Abdominal: Soft. She exhibits no distension, no fluid wave, no abdominal bruit, no ascites, no pulsatile midline mass and no mass. Tenderness is present in the right upper quadrant, epigastric area and left upper quadrant. She has guarding and pain at McBurney's point. She has no rigidity, no rebound and no Garg's sign. Musculoskeletal: Normal range of motion. She exhibits no edema and no tenderness. Neurological: She is alert and oriented to person, place, and time. Skin: Skin is warm and dry. No rash noted. No erythema. Psychiatric: She has a normal mood and affect. Her behavior is normal. Thought content normal. Procedures MDM Number of Diagnoses or Management Options Abdominal pain, right upper quadrant: established, worsening Amount and/or Complexity of Data Reviewed Clinical lab tests: ordered and reviewed Tests in the radiology section of CPT??: ordered and reviewed Tests in the medicine section of CPT??: ordered and reviewed Decide to obtain previous medical records or to obtain history from someone other than the patient:yes Obtain history from someone other than the patient: yes Review and summarize past medical records: yes Discuss the patient with other providers: yes Independent visualization of images, tracings, or specimens: yes Risk of Complications, Morbidity, and/or Mortality Presenting problems: moderate Diagnostic procedures: low Management options: moderate Patient Progress Patient progress: stable Recent Results (from the past 24 hour(s)) CBC (WITH DIFF) Component Value Range ??? WBC 10.4 (*) 4.0 - 10.0 (x10(3)/mcL) ??? RBC 3.82 (*) 3.93 - 5.22 (x10(6)/mcL) ??? Hemoglobin 12.4 11.2 - 15.7 (gm/dL) ??? Hematocrit 36.0 34.0 - 45.0 (%) ??? MCV 94.2 (*) 79.0 - 94.0 (fL) ??? MCH 32.5 (*) 26.6 - 32.2 (pg) ??? MCHC 34.4 32.0 - 36.5 (gm/dL) ??? Platelets 175 145 - 370 (x10(3)/mcL) ??? RDWSD 43.7 35.0 - 46.0 (fL) ??? RDWCV 12.7 10.9 - 14.4 (%) ??? MPV 10.6 9.0 - 12.0 (fL) ELECTROLYTES PANEL Component Value Range ??? Sodium 136 135 - 145 (mmol/L) ??? Potassium 4.2 3.5 - 5.0 (mmol/L) ??? Chloride 99 98 - 107 (mmol/L) ??? CO2 28 22 - 31 (mmol/L) ??? Anion Gap 9 5 - 15 (mmol/L) BUN Component Value Range ??? BUN 9 8 - 18 (mg/dL) CREATININE, SERUM Component Value Range ??? Creatinine 0.55 (*) 0.70 - 1.20 (mg/dL) ? ? Estimated GFR >60 >=60 GLUCOSE, RANDOM Component Value Range ??? Glucose Lvl 94 60 - 199 (mg/dL) HEPATIC FUNCTION PANEL Component Value Range ??? Total Protein 6.8 6.4 - 8.3 (gm/dL) ??? Albumin 3.9 3.2 - 5.2 (gm/dL) ??? AST 35 (*) 0 - 30 (unit/L) ??? ALT 80 (*) 0 - 30 (unit/L) ??? Alk Phos 215 (*) 40 - 104 (unit/L) ??? Total Bilirubin 0.8 0.2 - 1.3 (mg/dL) ??? Bili, Direct 0.3 0.0 - 0.3 (mg/dL) LIPASE Component Value Range ??? Lipase 17 0 - 60 (unit/L) POCT URINE DIPSTICK Component Value Range ??? POC Sp [place] 1.010 1.002 - 1.030 ??? POC pH, UA 8 5.0 - 8.5 ??? POC Leuk, UA neg Negative - Negative ??? POC Nitrite, UA neg Negative - Negative ??? POC Protein, UA neg Negative - Negative (mg/dL) ??? POC Glucose, UA neg Normal - Normal (mg/dL) ??? POC Ketone, UA neg Negative - Negative ??? POC Urobil, UA ++ 0.2 - 1.0 (mg/dL) ??? POC Bili, UA ++ Negative - Negative ??? POC Blood, UA neg Negative - Negative (karishma/uL) Acute abdominal series: chest: no acute cardiopulmonary process. Abd: no free air. Paucity of gas in small bowel limits evaluation of small bowel for obstruction. Single air fluid in left upper quadrant. Air in rectum. Overall, nonspecific bowel gas pattern. Surgical clips in RUQ. Impression: #1. Abdominal pain with elevated alkaline phosphatase, etiology unclear. #2. Left adnexal mass, etiology unclear. Found on abdominal CT and evaluated by ultrasound. ED course: The patient had an IV placed was given IV fluids as well as IV narcotics and antiemetics. She did require significant IV narcotics for pain control. I obtain the records from [facility] and reviewed them. It does appear that she had a very extensive workup as previously stated. She did have an upper endoscopy did not have an ERCP. The fact that she does havesignificant amount of bilirubin in her urine as well as elevated LFTs and alkaline phosphatase and a dilated common bile duct per ultrasound, I am wondering if there's some possible hepatobiliary pathology causing her symptoms. She does appear extremely uncomfortable and I feel that hospitalizationfor pain control would be appropriate. I will discuss situation with hospital medicine and they will make plans for condition and Silas Llanes MD 03/27/11 1660 documented in this encounter Miscellaneous Notes * Plan of Care - Veronica Tobin LD - 04/03/2011 2:32 PM EST Problem: Nutrition, Imbalanced: Less than Body Requirements (Adult, Obstetric) Intervention: Promote Oral Nutrition Nutrition Progress Note: S: Per pt: I had the bottom of a mini bagel and about 7-8 bites of oatmeal for breakfast and my stomach was so upset. Appetite: Minimal Chewing/Swallowing: No problems N/V: No problems per pt O: Dx: Abdominal Pain, ? Acute pancreatitis PMH: Hypothyroidism, Hemicolectomy Diet: Regular Admit Weight: 100.7 kg Current Weight: 102.7 kg Admit BMI: 39.8 Labs: BUN:4, Creat: 0.40 Medications: Noted A: Pt seen for nutrition follow up. Po remains suboptimal, BMI remains WNL. Pt is ordering a variety of foods at meal times in hopes of finding foods she can tolerate. Offered supplements and snacks.Pt is agreeable to 4 oz Boost Plus nutrition supplements between meals, will provide. If pt is found to have acute pancreatitis, recommend pt be made NPO for GI rest and use of alternative means of nutrition support if necessary. P: 1. Will provide 4 oz nutrition supplements between meals. 2. Encourage po intake. 3. If pt is found to have acute pancreatitis, recommend pt made NPO with use of alternative means of nutrition support if necessary. 4. Nutrition to follow throughout hospital stay. * Med Student Progress Note - Honorio Belcher - 04/03/2011 8:39 AM EST Inpatient Hospital Medicine - Progress Note Admit Date: 03/27/2011 Hospital Day 7 days Problem List: Active Hospital Problems Diagnoses ??? Superior mesenteric vein thrombosis ??? Hallucination, drug-induced ??? Abdominal pain Resolved Hospital Problems Diagnoses Date Resolved ??? Elevated alkaline phosphatase level 04/01/2011 ??? Acute pancreatitis 04/01/2011 ??? Nausea 04/01/2011 Active Non-Hospital Problems Diagnoses ??? Hypothyroid 24 Hour Events: Episode of bilious vomiting last night prior to dinner. No subsequent nausea or vomiting. Subjective: Episode of epigastric pain this am. Had a loose bowel movement this am. Denies F/C/S, CP, SOB. Scheduled Meds: ??? warfarin 5 mg Oral QPM ??? enoxaparin 100 mg Subcutaneous Q12H ABDIEL ??? fluticasone-salmeterol 1 puff Inhalation Q12H ??? levothyroxine 75 mcg Oral Daily ??? esomeprazole 40 mg Oral Daily ??? sodium chloride 0.9 % 5 mL Intravenous Q12H ??? senna-docusate 1-4 tablet Oral BID ??? nystatin 500,000 Units Oral 4 Times Daily Continuous Infusions: ??? DISCONTD: sodium chloride 0.9% with potassium chloride 20 mEq 125 mL/hr (04/01/11 2235) PRN Meds:.HYDROmorphone, DISCONTD: HYDROmorphone, DISCONTD: HYDROmorphone (PF), DISCONTD: HYDROmorphone (PF), iohexol, albuterol, polyethylene glycol, bisacodyl, acetaminophen, ondansetron, ondansetron, bisacodyl Physical Exam: Last Set of Vitals and range of vitals over past 24 hours: Last value Range last 24 hrs Temperature Temp: 36.4 ??C (97.5 ??F) Temp: [36.4 ??C (97.5 ??F)-36.8 ??C (98.2 ??F)] Heart Rate Heart Rate: 75 Heart Rate: [75-89] Blood Pressure BP: 130/70 mmHg BP: (130-164)/(70-89) Respiratory Rate Resp: 18 Resp: [18-22] SpO2 SpO2: 93 % SpO2: [91 %-94 %] Physical Exam Constitutional: She is oriented to person, place, and time. She appears well- developed and well-nourished. No distress. Neck: No JVD present. No thyromegaly present. Cardiovascular: Normal rate, regular rhythm, normal heart sounds and intact distal pulses. Exam reveals no gallop and no friction rub. No murmur heard. Pulmonary/Chest: Effort normal and breath sounds normal. No respiratory distress. She has no wheezes. She exhibits no tenderness. Mild bilateral basilar rhonchi. Abdominal: Soft. Bowel sounds are normal. She exhibits no distension (however obese ). Tenderness (to deep palpation) is present. She has guarding (voluntary). She has no rebound. Musculoskeletal: She exhibits no edema. Neurological: She is alert and oriented to person, place, and time. Skin: Skin is warm and dry. Laboratory (Last 24 Hours): Recent Results (from the past 24 hour(s)) CBC (WITH DIFF) Component Value Range ??? WBC 6.7 4.0 - 10.0 (x10(3)/mcL) ??? RBC 3.92 (*) 3.93 - 5.22 (x10(6)/mcL) ??? Hemoglobin 12.5 11.2 - 15.7 (gm/dL) ??? Hematocrit 37.2 34.0 - 45.0 (%) ??? MCV 94.9 (*) 79.0 - 94.0 (fL) ??? MCH 31.9 26.6 - 32.2 (pg) ??? MCHC 33.6 32.0 - 36.5 (gm/dL) ??? Platelets 303 145 - 370 (x10(3)/mcL) ??? RDWSD 43.7 35.0 - 46.0 (fL) ??? RDWCV 12.8 10.9 - 14.4 (%) ??? MPV 9.6 9.0 - 12.0 (fL) BMP W/FASTING GLUCOSE Component Value Range ??? Glucose Fasting 79 65 - 99 (mg/dL) ??? BUN 4 (*) 8 - 18 (mg/dL) ??? Creatinine 0.40 (*) 0.70 - 1.20 (mg/dL) ??? Sodium 138 135 - 145 (mmol/L) ??? Potassium 4.0 3.5 - 5.0 (mmol/L) ??? Chloride 97 (*) 98 - 107 (mmol/L) ??? CO2 29 22 - 31 (mmol/L) ??? Anion Gap 12 5 - 15 (mmol/L) ??? Calcium 9.9 8.5 - 10.5 (mg/dL) ? ? Estimated GFR >60 >=60 PROTHROMBIN TIME Component Value Range ??? PT 15.2 (*) 12.3 - 14.7 (sec) ??? INR 1.2 (*) 0.9 - 1.1 DIFFERENTIAL, AUTOMATED Component Value Range ??? Neutrophils % 58.7 34.0 - 71.0 (%) ??? Neutr Abs (ANC) 3.95 1.50 - 6.30 (x10(3)/mcL) ??? Lymphocytes % 23.7 19.0 - 53.0 (%) ??? Lymphocytes Abs 1.6 1.0 - 3.6 (x10(3)/mcL) ??? Monocytes % 14.8 (*) 4.0 - 13.0 (%) ??? Monocyte Abs 1.0 0.2 - 1.0 (x10(3)/mcL) ??? Eosinophils % 2.1 0.0 - 7.0 (%) ??? Eosinophils Abs 0.1 0.0 - 0.5 (x10(3)/mcL) ??? Basophils % 0.4 0.0 - 2.0 (%) ??? Basophils Abs 0.0 0.0 - 0.2 (x10(3)/mcL) ??? Immature Gran % 0.30 0.00 - 0.66 (%) ??? Philomena Gran Abs 0.02 0.00 - 0.05 (x10(3)/mcL) Intake/Output Summary (Last 24 hours) at 04/03/11 0839 Last data filed at 04/03/11 0800 Gross per 24 hour Intake 340 ml Output 1120 ml Net -780 ml Radiology: XR chest/abdomen (03/27/11): CHEST: The lungs are clear. No effusion or pneumothorax. The cardiomediastinal silhouette is borderline enlarged. ABDOMEN: No free air. There is a paucity of small gas within the small bowel limiting the evaluation for small bowel obstruction. A single air-fluid level is present in the left upper quadrant of theabdomen. There is air present projecting at the level of the rectosigmoid colon. Overall, this bowel gas pattern is nonspecific. Surgical clips are present in the right upper quadrant. CT (03/28/11): 1. Findings concerning for possible acute pancreatitis. 2. No free air or free fluid. 3. Status post cholecystectomy. 4. Unremarkable small bowel/colon anastomosis. RUQ U/S (03/30/11): 1. No evidence of choledocholithiasis. 2. Enlarged CBD, 13mm, post cholecystectomy. 3. Enlarged and echogenic pancreas consistent with patients known pancreatitis. MRCP (03/30/11): 1. No evidence of choledocholithiasis. 2. Loss of normal flow void throughout the portal vein and its branches suggestive of portal venousthrombosis. Additionally, the SMV appears expanded also raising the possibility of intraluminal thrombus. Ultrasound is recommended for further evaluation of portal venous flow. Abdominal Vascular Ultrasound (04/02/11): 1. Portal vein thrombus with no flow identified in the main, right, or left portal veins. 2. Patent hepatic veins with normal doppler waveforms. Assessment: This is a 60-year-old woman with nausea and epigastric pain s/p appendectomy, right hemicolectomy, and cholecystectomy. Cholestatic pattern found on LFT's with a normal bilirubin. She has had an extensive work up for this pain. Signs suggestive for acute pancreatitis found on CT here. NPO, on INPATIENT CARE MANAGER RN, IVF over weekend with plans to work up causes. Plan: #Visceral Vein Thrombosis: -AC with therapeutic Lovenox. Will start bridge to Coumadin. Will need AC for 3- 6 months. -Continues to have pain. Transitioned to PO pain meds in preparation for discharge. -Persistently elevated alk phos with dilated CBD. -Seen by GI - recommend possible work-up for dilated CBD outpatient -With pain this am, will get a KUB to r/o ileus as a cause due to opiate use. #Nutrition: -Regular diet. #DVT prophylaxis: -Therapeutic dose Lovenox with bridge to Coumadin started yesterday. #Code Status: -Full Code #Disposition: -Mrs. Jones should be out of bed and walking around unit. She is medically stable and on oral medications. Ready for discharge home. Shala Belcher 04/03/2011 Pager [phone] * Plan of Care - Yolanda Ding RN - 04/03/2011 3:27 AM EST Problem: Pain, Acute (Adult, Obstetric) Goal: Acute Pain: Acceptable Pain Control/Comfort Level - Pain, Acute (Adult, Obstetric) Outcome: Present (see interventions, notes) Pt reported 6/10 RUQ abd pain after episode of loose brown stool x1 Pt given tylenol at 2000 with little relief, given dilaudid 4 mg po x1 with good effect pt resting quietly Slept in long naps will continue to monitor Problem: Skin Integrity Impairment, Risk/Actual (Adult, Obstetric) Intervention: Skin/Mucous Membrane Protection Pt has a small lesion right tongue refused Nystatin no drainage or pain at site using normal salinerinses ,will continue to monitor. Goal: Skin Integrity Impairment, Risk/Actual: Skin Integrity/Wound Healing Outcome: Absent and monitoring Skin remains intact pt able to turn and reposition in bed independently , will Continue to monitor * Plan of Care - Nicole Setrn RN - 04/02/2011 8:58 PM EST Problem: Pain, Acute (Adult, Obstetric) Goal: Acute Pain: Acceptable Pain Control/Comfort Level - Pain, Acute (Adult, Obstetric) Outcome: Absent and monitoring Pt c/o of no pain at this time, had dilaudid 0630 8mg. At 1230 pt hallucinating, states she sees balls rolling on the floor and smoke. Pt falls asleep during conversation, aware she is disoriented. MD aware, states she narcotic naive. Monitored pt, after an hour of sleep she seemed much more alert. Will continue to monitor and make changes as needed. Problem: Trauma/Injury Risk (Adult, Obstetric) Goal: Trauma/Injury Risk: Absence of Trauma/Injury/Falls Outcome: Present (see interventions, notes) Pt confused and obtunded this morning. Snoozing intermittently, hallucinating etc. aware. Pt safety maintained will continue to monitor and make changes as needed. * Discharge Summary - Ana Maria Pereira MD - 04/02/2011 1:57 PM EST Inpatient Hospital Medicine - Discharge Summary Patient Name: Vladimir Jones Patient Age: 60 y.o. Birthdate: 1950 Admit date: 03/27/2011 Discharge date and time: No discharge date for patient encounter. Attending Physician: Ana Maria Pereira MD Discharge Diagnoses (Hospital Problems) and Secondary Diagnoses (Chronic Problems): Active Hospital Problems Diagnoses ??? Superior mesenteric vein thrombosis ??? Hallucination, drug-induced ??? Abdominal pain Resolved Hospital Problems Diagnoses Date Resolved ??? Elevated alkaline phosphatase level 04/01/2011 ??? Acute pancreatitis 04/01/2011 ??? Nausea 04/01/2011 Active Non-Hospital Problems Diagnoses ??? Abdominal pain, right upper quadrant ??? Hypothyroid Operations/Major Procedures: Operations: * No surgery found * History of Presentation: Mrs. Jones is a 60-year-old woman with medical history of hypothyroidism and GERD who reports she was in her usual state of health until early February of this year. [place] onset of abdominal pain. She denies having fever or chills. After 10 days of this she went to the local hospital where she reports having a CT scan performed which wasconcerning for appendicitis and an abnormal appearing jose francisco-cecal area. According to her, she initially underwent a laproscopic appendectomy which was converted to a partially open procedure as there was evidence of a perforated appendix for which she underwent more extensive resection including partial right colectomy. Her post-operative course was complicated by incision wound infection and she was started on a 7 day course of Keflex. Her flight back to [place] was uneventful and she followed up with her PCP within a week of her return. One week prior to admission at [facility] she reports developing acute onset of epigastric pain which wassharp in nature and associated with nausea. Because of her symptoms, she presented to [facility] for further evaluation. There she underwent a CT which did not reveal any acute pathology however showed fatty infiltration of the liver. Upper endoscopy was reported to be normal. Lab abnormalities notable for Alk Phos of 248, AST 44, ALT 111 with a normal total bilirubin. She was discharged and presented to [facility] the same day because of ongoing pain. Of note, Mrs Jones reports she underwent cholecystectomy 4 years ago for cholelithiasis and abdominal pain. She believes the pain that prompted her cholecystectomy resolved after surgery although shereports she has had some abdominal pains for years, albeit different from her current presentation.She does not use any alcohol and has not in the past. She reports no new meds in the last few weekswith exception of Keflex. She takes Ibuprofen 800mg bid to tid for headache. She reports no prior history of pancreatitis. Hospital Course: Evaluation on admission was revealing for labs including Alk Phos 215 with elevated GGT, ALT 80, AST 35, normal total bilirubin, normal amylase of 17, normal triglycerides, and normal calcium. CT performed showed dilated CBD to about 15mm and pancreatic stranding suggestive of acute pancreatitis. Abdominal ultrasound, which was limited secondary to body habitus, showed dilated CBD without obviouscholedocholithiasis. Due to her presenting symptoms and findings on CT, treatment was initiated foracute pancreatitis and an MRCP was obtained to investigate the cause. Because of the excessively dilated CBD seen on CT and ultrasound, as well the obstructive pattern found on LFTs, the cause was ini tially presumed to be secondary to choledocholithiasis. Results of the MRCP were suggestive of thrombosis of the portal vein and SMV. Subsequent review of the imaging is still suggestive of pancreatitis however also may be attributed to jose francisco-vascular edema. She has been started on therapeutic dose Lovenox and anti- mitochondiral antibodies were sent. An abdominal vascular ultrasound was also obtained. Throughout her hospital course she continued to have sporadic episodes of epigastric pain and was transitioned to PO pain medicines in planning for discharge. Prior to discharge a XR abdomen was obtained due to recent narcotic use and hypoactive bowel sounds heard on physical exam to rule out an ileus. While at [facility] she was seen by the gastroenterology consult service who will follow-up with her regarding the possible need for workup of her dilated CBD and elevated alk phos. Important Studies and Lab Data: Labs: Lab Results Component Value Date ALT 44* 03/31/2011 AST 26 03/31/2011 GGT 138* 03/29/2011 ALKPHOS 192* 03/31/2011 BILITOT 0.4 03/31/2011 Recent Labs Basename 04/03/11 0345 03/27/11 2125 ??? NA 138 -- ??? K 4.0 -- ??? CL 97* -- ??? CO2 29 -- ??? BUN 4* -- ??? CREATININE 0.40* -- ??? GLUCOSE -- 94 Lab Results Component Value Date LIPASE 17 03/27/2011 Studies: XR Abd with PA Chest (03/27/11): CHEST: The lungs are clear. No effusion or pneumothorax. The cardiomediastinal silhouette is borderline enlarged. ABDOMEN: No free air. There is a paucity of small gas within the small bowel limiting the evaluation for small bowel obstruction. A single air-fluid level is present in the left upper quadrant of the abdomen. There is air present projecting at the level of the rectosigmoid colon. Overall, this bowel gas pattern is nonspecific. Surgical clips are present in the right upper quadrant. CT Abd/Pel (03/28/11): 1. Findings concerning for possible acute pancreatitis. 2. No free air or free fluid. 3. Status post cholecystectomy. 4. Unremarkable small bowel/colon anastomosis. Addendum: On the coronal images (series #300) there is a transition in the opacification of the distal superior mesenteric vein with poor opacification of the portal vein. A thrombus cannot completely be excluded although this may be mixing artifact. The patient's clinicians were notified of these possibilities at the time of this addendum. Ultrasound - Abdomen Limited (03/30/11): 1. No evidence of choledocholithiasis. 2. Enlarged CBD, 13mm, post cholecystectomy. 3. Enlarged and echogenic pancreas consistent with patients known pancreatitis. Magnetic resonance cholangiopancreatography (03/30/11): 1. No evidence of choledocholithiasis. 2. Loss of normal flow void throughout the portal vein and its branches suggestive of portal venousthrombosis. Additionally, the SMV appears expanded also raising the possibility of intraluminal thrombus. Ultrasound is recommended for further evaluation of portal venous flow. Abdominal Vascular Ultrasound (04/02/11): 1. Portal vein thrombus with no flow identified in the main, right, or left portal veins. 2. Patent hepatic veins with normal doppler waveforms. XR Abdomen w/ PA Chest(04/03/11): Nonspecific bowel gas pattern. Pending Studies and Lab Data: Follow-up with results of anti-mitochondrial antibody screen. Discharge Conditions/Prognosis: Stable/Good. Discharge to: Home. Discharge Medications: Scheduled Meds: Vladimir Jones Home Medication Instructions WALTER:[id number] Printed on:04/03/11 9722 Medication Information fluticasone-salmeterol (ADVAIR) 100-50 mcg/dose diskus inhaler Inhale 1 puff into the lungs every 12 hours. albuterol (PROVENTIL HFA;VENTOLIN HFA) 90 mcg/Actuation inhaler Inhale 2 puffs into the lungs every 4 hours as needed. Use with spacer levothyroxine (SYNTHROID) 25 mcg tablet Take 75 mcg by mouth daily. omeprazole (PRILOSEC) 10 mg capsule Take 10 mg by mouth daily. nystatin (MYCOSTATIN) 100,000 unit/mL suspension Take 5 mLs by mouth 4 times daily. warfarin (COUMADIN) 5 mg tablet Take 1 tablet by mouth every evening. enoxaparin (LOVENOX) 100 mg/mL Syrg injection Inject 1 mL subcutaneously 2 times daily. HYDROmorphone (DILAUDID) 4 mg tablet Take 1-2 tablets by mouth every 4 hours as needed for Pain. Updated Allergies/ADRs: Allergies Allergen Reactions ??? House Dust CIS - Allergic Rhinitis ??? Percocet (Oxycodone-acetaminophen) Other (See Comments) Dizziness Follow-up Appointment: PCP: Mario Nowak APRN Date/Time: April 13, 2011 at 2:15pm Follow-up Recommendations for Providers: Mrs. Jones will require anticoagulation with coumadin for the next 3-6 months with a target INR of 2.0-3.0. She will continue to be bridged with therapeutic enoxaparin until 24-48 hours after her INRis at goal, at which point she can stop the enoxaparin. At the 3 month interval would recommend checking an abdominal vascular ultrasound for recanalization along with a d-dimer. Follow-up with results of anti-mitochondrial antibody screen. Due to oxygen desaturation noticed at night, Mrs. Jones may benefit from a sleep study to evaluate possible ZIA. Instructions Given to Patient at Discharge: Provider Instructions None General Instructions Future Appointments and Orders Future Orders Please Complete By Expires REFERRAL TO ANTICOAGULATION MONITORING [OHC329 Custom] Process Instructions: If no progress note charted, please enter Clinical details in comments. Scheduling Instructions: Comments: Questions: Responses: Responsible Group [facility] Reason for referral Portal and Mesenteric Vein Thrombosis Risk Factors: Next due INR 04/04/2011 INR Goal 2.0-3.0 Target End Date 07/04/2011 Non-DH / Pending Appointments [NPH210 CPT(R)] Process Instructions: If no progress note charted, please enter Clinical details in comments. Scheduling Instructions: Comments: Questions: Responses: MD / Clinic / Date / Time: April 13, 2011/2:15 pm REFERRAL TO GASTROENTEROLOGY [REF25 Custom] Process Instructions: If no progress note charted, please enter Clinical details in comments. Scheduling Instructions: Comments: Questions: Responses: Reason for referral f/u hospitalization, CBD dilation Full code [COD2 Custom] Process Instructions: 1) Ordering MD or EMERGENCY SERVICE WORKER must provide Order Justification documentation for a: Partial Code Order Do Not Attempt Resuscitation (DNR) Revision of Code Status order (Rescind DNR Order) 2) If the Attending of Record, as the Responsible decision maker selects a Partial Code or DNR order, a 2nd physician must document in a note, their agreement that resuscitation would be a non-beneficial treatment. 3) If the ordering provider is not the Attending of Record, the ordering MD or EMERGENCY SERVICE WORKER must obtain (verbal) approval of the Attending of Record. Completing this documentation indicates that you have obtained verbal approval from the Attending of Record Scheduling Instructions: Comments: Questions: Responses: Responsible decision maker(s), other than patient Does patient have decision making capacity? Yes, Order is based on Patients wishes. Content of discussion: POCT INR [POC15 Custom] Process Instructions: Scheduling Instructions: Comments: Questions: Responses: Should this service/procedure be billed to the research sponsor? Provider Contact Information: MARIO NOWAK APRN [address] / [place] [phone] Discharge References/Attachments: Discharge References/Attachments None For questions regarding this document or issues relating to this hospitalization on the Medical Service, please contact your inpatient physician through the [facility] [employer] . Issues afterhours and on weekends will be handled by the Hospitalist staff on-call. Signed: Shala Belcher 04/03/2011 * Med Student Progress Note - Honorio Belcher - 04/02/2011 8:57 AM EST Inpatient Hospital Medicine - Progress Note Admit Date: 03/27/2011 Hospital Day 6 days Problem List: Active Hospital Problems Diagnoses ??? Superior mesenteric vein thrombosis ??? Abdominal pain Resolved Hospital Problems Diagnoses Date Resolved ??? Elevated alkaline phosphatase level 04/01/2011 ??? Acute pancreatitis 04/01/2011 ??? Nausea 04/01/2011 Active Non-Hospital Problems Diagnoses ??? Hypothyroid 24 Hour Events: Had watery diarrhea this morning. Subjective: More epigastric pain this am with associated nausea. Denies CP, SOB Scheduled Meds: ??? DISCONTD: INPATIENT CARE MANAGER RN ventura ??? enoxaparin 100 mg Subcutaneous Q12H ABDIEL ??? fluticasone-salmeterol 1 puff Inhalation Q12H ??? levothyroxine 75 mcg Oral Daily ??? esomeprazole 40 mg Oral Daily ??? sodium chloride 0.9 % 5 mL Intravenous Q12H ??? senna-docusate 1-4 tablet Oral BID ??? nystatin 500,000 Units Oral 4 Times Daily Continuous Infusions: ??? sodium chloride 0.9% with potassium chloride 20 mEq 125 mL/hr (04/01/11 3067) PRN Meds:.HYDROmorphone, HYDROmorphone (PF), HYDROmorphone (PF), iohexol, albuterol, polyethylene glycol, bisacodyl, acetaminophen, ondansetron, ondansetron, bisacodyl Physical Exam: Last Set of Vitals and range of vitals over past 24 hours: Last value Range last 24 hrs Temperature Temp: 36.6 ??C (97.9 ??F) Temp: [36.2 ??C (97.2 ??F)-36.7 ??C (98.1 ??F)] Heart Rate Heart Rate: 72 Heart Rate: [72-85] Blood Pressure BP: 128/70 mmHg BP: (128-152)/(70-80) Respiratory Rate Resp: 18 Resp: [18] SpO2 SpO2: 97 % SpO2: [95 %-99 %] Physical Exam Constitutional: She is oriented to person, place, and time. She appears well- developed and well-nourished. No distress. Neck: No JVD present. No thyromegaly present. Cardiovascular: Normal rate, regular rhythm, normal heart sounds and intact distal pulses. Exam reveals no gallop and no friction rub. No murmur heard. Pulmonary/Chest: Effort normal and breath sounds normal. No respiratory distress. She has no wheezes. She exhibits no tenderness. Mild bilateral basilar rhonchi. Abdominal: Soft. Bowel sounds are normal. She exhibits no distension (however obese ). Tenderness (to deep palpation) is present. She has guarding (voluntary). She has no rebound. Musculoskeletal: She exhibits no edema. Neurological: She is alert and oriented to person, place, and time. Skin: Skin is warm and dry. Laboratory (Last 24 Hours): Recent Results (from the past 24 hour(s)) CBC (WITH DIFF) Component Value Range ??? WBC 5.8 4.0 - 10.0 (x10(3)/mcL) ??? RBC 3.81 (*) 3.93 - 5.22 (x10(6)/mcL) ??? Hemoglobin 11.9 11.2 - 15.7 (gm/dL) ??? Hematocrit 36.3 34.0 - 45.0 (%) ??? MCV 95.3 (*) 79.0 - 94.0 (fL) ??? MCH 31.2 26.6 - 32.2 (pg) ??? MCHC 32.8 32.0 - 36.5 (gm/dL) ??? Platelets 274 145 - 370 (x10(3)/mcL) ??? RDWSD 43.2 35.0 - 46.0 (fL) ??? RDWCV 12.6 10.9 - 14.4 (%) ??? MPV 9.8 9.0 - 12.0 (fL) BMP W/FASTING GLUCOSE Component Value Range ??? Glucose Fasting 82 65 - 99 (mg/dL) ??? BUN 2 (*) 8 - 18 (mg/dL) ??? Creatinine 0.40 (*) 0.70 - 1.20 (mg/dL) ??? Sodium 135 135 - 145 (mmol/L) ??? Potassium 4.0 3.5 - 5.0 (mmol/L) ??? Chloride 96 (*) 98 - 107 (mmol/L) ??? CO2 31 22 - 31 (mmol/L) ??? Anion Gap 8 5 - 15 (mmol/L) ??? Calcium 9.2 8.5 - 10.5 (mg/dL) ? ? Estimated GFR >60 >=60 DIFFERENTIAL, AUTOMATED Component Value Range ??? Neutrophils % 54.2 34.0 - 71.0 (%) ??? Neutr Abs (ANC) 3.12 1.50 - 6.30 (x10(3)/mcL) ??? Lymphocytes % 24.7 19.0 - 53.0 (%) ??? Lymphocytes Abs 1.4 1.0 - 3.6 (x10(3)/mcL) ??? Monocytes % 17.4 (*) 4.0 - 13.0 (%) ??? Monocyte Abs 1.0 0.2 - 1.0 (x10(3)/mcL) ??? Eosinophils % 2.8 0.0 - 7.0 (%) ??? Eosinophils Abs 0.2 0.0 - 0.5 (x10(3)/mcL) ??? Basophils % 0.7 0.0 - 2.0 (%) ??? Basophils Abs 0.0 0.0 - 0.2 (x10(3)/mcL) ??? Immature Gran % 0.20 0.00 - 0.66 (%) ??? Philomena Gran Abs 0.01 0.00 - 0.05 (x10(3)/mcL) URINALYSIS WITH MICROSCOPIC Component Value Range ??? Glucose UA Negative Negative (mg/dL) ??? Protein UA Negative (mg/dL) ??? Bilirubin UA Negative Negative (mg/dL) ??? Urobilinogen UA Normal (mg/dL) ??? pH UA 6.5 5.0 - 8.0 ??? Blood UA Negative (mg/dL) ??? Ketones UA 40 (*) Neg (mg/dL) ??? Nitrite UA Negative ??? Leukocytes UA Negative (mcL) ??? Appearance UA Clear Clear ??? Spec [place] UA 1.007 1.002 - 1.030 ??? Color UA Yellow Yellow ? ? RBC UA <1 0 - 4 (/HPF) ??? WBC UA 1 0 - 5 (/HPF) ? ? Squam Epith UA 1 <=4 (/HPF) ??? Hyaline Cast UA 1 0 - 2 (/LPF) Intake/Output Summary (Last 24 hours) at 04/02/11 0857 Last data filed at 04/02/11 0700 Gross per 24 hour Intake 4064 ml Output 5126 ml Net -1062 ml Radiology: XR chest/abdomen (03/27/11): CHEST: The lungs are clear. No effusion or pneumothorax. The cardiomediastinal silhouette is borderline enlarged. ABDOMEN: No free air. There is a paucity of small gas within the small bowel limiting the evaluation for small bowel obstruction. A single air-fluid level is present in the left upper quadrant of theabdomen. There is air present projecting at the level of the rectosigmoid colon. Overall, this bowel gas pattern is nonspecific. Surgical clips are present in the right upper quadrant. CT (03/28/11): 1. Findings concerning for possible acute pancreatitis. 2. No free air or free fluid. 3. Status post cholecystectomy. 4. Unremarkable small bowel/colon anastomosis. RUQ U/S (03/30/11): 1. No evidence of choledocholithiasis. 2. Enlarged CBD, 13mm, post cholecystectomy. 3. Enlarged and echogenic pancreas consistent with patients known pancreatitis. MRCP (03/30/11): 1. No evidence of choledocholithiasis. 2. Loss of normal flow void throughout the portal vein and its branches suggestive of portal venousthrombosis. Additionally, the SMV appears expanded also raising the possibility of intraluminal thrombus. Ultrasound is recommended for further evaluation of portal venous flow. Assessment: This is a 60-year-old woman with nausea and epigastric pain s/p appendectomy, right hemicolectomy, and cholecystectomy. Cholestatic pattern found on LFT's with a normal bilirubin. She has had an extensive work up for this pain. Signs suggestive for acute pancreatitis found on CT here. NPO, on INPATIENT CARE MANAGER RN, IVF over weekend with plans to work up causes. Plan: #Visceral Vein Thrombosis: -AC with therapeutic Lovenox. Will start bridge to Coumadin. Will need AC for 3- 6 months. -Continues to have pain. Transitioned to PO pain meds in preparation for discharge. -Persistently elevated alk phos with dilated CBD. -Seen by GI - recommend possible work-up for dilated CBD outpatient #Nutrition: -NPO -IVF #DVT prophylaxis: -Therapeutic dose Lovenox with bridge to Coumadin #Code Status: -Full Code #Disposition: -Consent signed for medical records from [facility]. Mrs. Jones should be out of bed and walking around unit. She is medically stable and on oral medications. Ready for discharge home. Shalapineda Belcher 04/02/2011 Pager [phone] * Plan of Care - Maribel Bailon RN - 04/02/2011 2:12 AM EST Problem: Pain, Acute (Adult, Obstetric) Goal: Acute Pain: Acceptable Pain Control/Comfort Level - Pain, Acute (Adult, Obstetric) Outcome: Present (see interventions, notes) Patient continues on pain regiment, PRN 8-12 Dilaudid PO. Patient received good relief with 8 mg dose, See MAR for details. Will continue to asses and medicate appropriately. Problem: Skin Integrity Impairment, Risk/Actual (Adult, Obstetric) Goal: Skin Integrity Impairment, Risk/Actual: Skin Integrity/Wound Healing Outcome: Present (see interventions, notes) Patient skin currently intact, bruising noted on abdomen. Area of thrush noted on right side of patient's tongue, patient continues on nystatin swish and swallow. Patient able to independently shift self in bed, PO intake encouraged. Will continue to monitor for skin breakdown. Problem: Trauma/Injury Risk (Adult, Obstetric) Goal: Trauma/Injury Risk: Absence of Trauma/Injury/Falls Outcome: Absent and monitoring Patient calling appropriately throughout shift, stand by assist to maneuver IV lines/poles. * Plan of Care - Judy Kaiser RN - 04/01/2011 8:38 PM EST Problem: Pain, Acute (Adult, Obstetric) Goal: Acute Pain: Acceptable Pain Control/Comfort Level - Pain, Acute (Adult, Obstetric) Outcome: Present (see interventions, notes) INPATIENT CARE MANAGER RN D/C'd this morning. 12 mg Dilaudid Po given at time of removal, since then pt's pain has been adequately controled with no need for breakthrough medication, IV dilaudid available prn. Frequently re-assessed pain throughout shift, pt has denied need for breakthrough throughout shift. Will continue to monitor and treat as needed. Problem: Skin Integrity Impairment, Risk/Actual (Adult, Obstetric) Goal: Skin Integrity Impairment, Risk/Actual: Skin Integrity/Wound Healing Outcome: Absent and monitoring Skin is intact at this time. All pressure points assessed for breakdown, no redness appreciated. Ptable to mobilize in bed without difficulty. Problem: Trauma/Injury Risk (Adult, Obstetric) Goal: Trauma/Injury Risk: Absence of Trauma/Injury/Falls Outcome: Present (see interventions, notes) Pt ambulating with a stand by assist and is steady on her feet. She is calling appropriately when in need of assistance thus the bed alarm is left off at this time. Will continue to monitor fall risk. * Plan of Care - Maribel Bailon RN - 04/01/2011 4:10 AM EST Problem: Pain, Acute (Adult, Obstetric) Goal: Acute Pain: Acceptable Pain Control/Comfort Level - Pain, Acute (Adult, Obstetric) Outcome: Present (see interventions, notes) Patient remains on dilaudid INPATIENT CARE MANAGER RN 0.2/15/0.2/4mg, patient noted to have sudden onset of severe abdominal pain. Patient report position changes, sitting upright help relieve pain. Will continue to monitor effects of INPATIENT CARE MANAGER RN and reinforce use. Problem: Skin Integrity Impairment, Risk/Actual (Adult, Obstetric) Goal: Skin Integrity Impairment, Risk/Actual: Skin Integrity/Wound Healing Outcome: Absent and monitoring Patient skin currently intact, bruising noted on abdomen. Patient able to independently shift self in bed, PO intake encouraged. Will continue to monitor for skin breakdown. Problem: Trauma/Injury Risk (Adult, Obstetric) Goal: Trauma/Injury Risk: Absence of Trauma/Injury/Falls Outcome: Absent and monitoring Patient calling appropriately throughout shift, stand by assist to maneuver IV lines/poles. Problem: Constipation (Adult, Obstetric) Goal: Constipation: Bowel Elimination/Symptom Control Outcome: Absent and monitoring Patient remains on Narcotic bowel regiment, loose BM 04/01. Will continue to monitor for constipation and treat appropriately. * Plan of Care - Judy Kaiser RN - 03/31/2011 1:33 PM EST Problem: Pain, Acute (Adult, Obstetric) Goal: Acute Pain: Acceptable Pain Control/Comfort Level - Pain, Acute (Adult, Obstetric) Outcome: Present (see interventions, notes) Pt with dilaudid INPATIENT CARE MANAGER RN for pain control with settings at 0.2 mg, 15 min, 0.2 mg, 4 mg. Having a difficult time controlling pain without making her sedated. At start of shift pt sedated but rousable, falling asleep mid conversation. 20 minutes later pt was doubled over in severe pain, reported pain inabdomen. MD notified and a one time of dilaudid 0.4 mg given with good effect. Encouraging pt to continue to use pain button even when in minimal amounts of pain. Will continue to monitor pain control/sedation and notify MD of concerns. Problem: Skin Integrity Impairment, Risk/Actual (Adult, Obstetric) Goal: Skin Integrity Impairment, Risk/Actual: Skin Integrity/Wound Healing Outcome: Absent and monitoring All skin intact at this time. Pressure points clear of breakdown and redness. Pt is able to turn self independently in bed at this time. Will continue to monitor. Problem: Trauma/Injury Risk (Adult, Obstetric) Goal: Trauma/Injury Risk: Absence of Trauma/Injury/Falls Outcome: Present (see interventions, notes) Pt is a stand-by assist with mobility to help with IV pole and masimo, she is steady on her feet. Pt calls appropriately when in need of assistance, thus bed alarm left off at this time. Problem: Constipation (Adult, Obstetric) Goal: Constipation: Bowel Elimination/Symptom Control Outcome: Absent and monitoring Pt's LBM 03/30, continued with stool softener this morning to counteract narcotics. Will continue to monitor for s/s of constipation, treating as necessary, and will notify of concerns. * Med Student Progress Note - SimiHonorio Marie - 03/31/2011 8:21 AM EST Inpatient Hospital Medicine - Progress Note Admit Date: 03/27/2011 Hospital Day 4 days Problem List: No resolved problems to display. Active Hospital Problems Diagnoses ??? Acute pancreatitis ??? Abdominal pain ??? Elevated alkaline phosphatase level ??? Nausea Resolved Hospital Problems Diagnoses Date Resolved Active Non-Hospital Problems Diagnoses ??? Hypothyroid 24 Hour Events: Got MRCP last night Subjective: Feels much better. Abdominal pain mostly controlled with INPATIENT CARE MANAGER RN. Denies CP, SOB, nausea or vomiting. Scheduled Meds: ??? HYDROmorphone (PF) 0.2 mg Intravenous Once ??? LORazepam 0.5 mg Intravenous Once ??? fluticasone-salmeterol 1 puff Inhalation Q12H ??? levothyroxine 75 mcg Oral Daily ??? esomeprazole 40 mg Oral Daily ??? sodium chloride 0.9 % 5 mL Intravenous Q12H ??? enoxaparin 40 mg Subcutaneous Daily ??? senna-docusate 1-4 tablet Oral BID ??? nystatin 500,000 Units Oral 4 Times Daily Continuous Infusions: ??? HYDROmorphone ??? sodium chloride 0.9% with potassium chloride 20 mEq 125 mL/hr (03/31/11 0201) ??? naloxone ??? INPATIENT CARE MANAGER RN ventura PRN Meds:.HYDROmorphone (PF), iohexol, albuterol, polyethylene glycol, bisacodyl, acetaminophen, ondansetron, ondansetron, diphenhydrAMINE, naloxone, prochlorperazine, bisacodyl Physical Exam: Last Set of Vitals and range of vitals over past 24 hours: Last value Range last 24 hrs Temperature Temp: 36.4 ??C (97.5 ??F) Temp: [36.4 ??C (97.5 ??F)-37 ??C (98.6 ??F)] Heart Rate Heart Rate: 78 Heart Rate: [78-89] Blood Pressure BP: 154/80 mmHg BP: (124-164)/(72-90) Respiratory Rate Resp: 18 Resp: [18-20] SpO2 SpO2: 97 % SpO2: [92 %-97 %] Physical Exam Constitutional: She is oriented to person, place, and time. She appears well- developed and well-nourished. No distress. Neck: No JVD present. No thyromegaly present. Cardiovascular: Normal rate, regular rhythm, normal heart sounds and intact distal pulses. Exam reveals no gallop and no friction rub. No murmur heard. Pulmonary/Chest: Effort normal and breath sounds normal. No respiratory distress. She has no wheezes. She exhibits no tenderness. Mild bilateral basilar rhonchi. Abdominal: Soft. Bowel sounds are normal. She exhibits no distension (however obese ). Tenderness (to deep palpation) is present. She has guarding (voluntary). She has no rebound. Musculoskeletal: She exhibits no edema. Neurological: She is alert and oriented to person, place, and time. Skin: Skin is warm and dry. Laboratory (Last 24 Hours): Recent Results (from the past 24 hour(s)) CBC (WITH DIFF) Component Value Range ??? WBC 6.0 4.0 - 10.0 (x10(3)/mcL) ??? RBC 3.64 (*) 3.93 - 5.22 (x10(6)/mcL) ??? Hemoglobin 11.4 11.2 - 15.7 (gm/dL) ??? Hematocrit 34.9 34.0 - 45.0 (%) ??? MCV 95.9 (*) 79.0 - 94.0 (fL) ??? MCH 31.3 26.6 - 32.2 (pg) ??? MCHC 32.7 32.0 - 36.5 (gm/dL) ??? Platelets 229 145 - 370 (x10(3)/mcL) ??? RDWSD 43.3 35.0 - 46.0 (fL) ??? RDWCV 12.4 10.9 - 14.4 (%) ??? MPV 9.9 9.0 - 12.0 (fL) BMP W/FASTING GLUCOSE Component Value Range ??? Glucose Fasting 83 65 - 99 (mg/dL) ??? BUN 6 (*) 8 - 18 (mg/dL) ??? Creatinine 0.33 (*) 0.70 - 1.20 (mg/dL) ??? Sodium 139 135 - 145 (mmol/L) ??? Potassium 4.1 3.5 - 5.0 (mmol/L) ??? Chloride 101 98 - 107 (mmol/L) ??? CO2 26 22 - 31 (mmol/L) ??? Anion Gap 12 5 - 15 (mmol/L) ??? Calcium 8.8 8.5 - 10.5 (mg/dL) ? ? Estimated GFR >60 >=60 HEPATIC FUNCTION PANEL Component Value Range ??? Total Protein 6.4 6.4 - 8.3 (gm/dL) ??? Albumin 3.1 (*) 3.2 - 5.2 (gm/dL) ??? AST 26 0 - 30 (unit/L) ??? ALT 44 (*) 0 - 30 (unit/L) ??? Alk Phos 192 (*) 40 - 104 (unit/L) ??? Total Bilirubin 0.4 0.2 - 1.3 (mg/dL) ??? Bili, Direct 0.1 0.0 - 0.3 (mg/dL) DIFFERENTIAL, AUTOMATED Component Value Range ??? Neutrophils % 54.2 34.0 - 71.0 (%) ??? Neutr Abs (ANC) 3.24 1.50 - 6.30 (x10(3)/mcL) ??? Lymphocytes % 25.1 19.0 - 53.0 (%) ??? Lymphocytes Abs 1.5 1.0 - 3.6 (x10(3)/mcL) ??? Monocytes % 17.6 (*) 4.0 - 13.0 (%) ??? Monocyte Abs 1.1 (*) 0.2 - 1.0 (x10(3)/mcL) ??? Eosinophils % 2.5 0.0 - 7.0 (%) ??? Eosinophils Abs 0.2 0.0 - 0.5 (x10(3)/mcL) ??? Basophils % 0.3 0.0 - 2.0 (%) ??? Basophils Abs 0.0 0.0 - 0.2 (x10(3)/mcL) ??? Immature Gran % 0.30 0.00 - 0.66 (%) ??? Philomena Gran Abs 0.02 0.00 - 0.05 (x10(3)/mcL) Intake/Output Summary (Last 24 hours) at 03/31/11 0821 Last data filed at 03/31/11 0644 Gross per 24 hour Intake 2576.8 ml Output 1200 ml Net 1376.8 ml Radiology: XR chest/abdomen (03/27/11): CHEST: The lungs are clear. No effusion or pneumothorax. The cardiomediastinal silhouette is borderline enlarged. ABDOMEN: No free air. There is a paucity of small gas within the small bowel limiting the evaluation for small bowel obstruction. A single air-fluid level is present in the left upper quadrant of theabdomen. There is air present projecting at the level of the rectosigmoid colon. Overall, this bowel gas pattern is nonspecific. Surgical clips are present in the right upper quadrant. CT (03/28/11): 1. Findings concerning for possible acute pancreatitis. 2. No free air or free fluid. 3. Status post cholecystectomy. 4. Unremarkable small bowel/colon anastomosis. RUQ U/S (03/30/11): 1. No evidence of choledocholithiasis. 2. Enlarged CBD, 13mm, post cholecystectomy. 3. Enlarged and echogenic pancreas consistent with patients known pancreatitis. MRCP (03/30/11): Pending Assessment: This is a 60-year-old woman with nausea and epigastric pain s/p appendectomy, right hemicolectomy, and cholecystectomy. Cholestatic pattern found on LFT's with a normal bilirubin. She has had an extensive work up for this pain. Signs suggestive for acute pancreatitis found on CT here. NPO, on INPATIENT CARE MANAGER RN, IVF over weekend with plans to work up causes. Plan: #Acute Pancreatitis: -Normal lipase, however CT shows sign suggestive so we will treat as such with pain control, NPO, and IVF. TG normal, GGT consistent with elevated alk phos being hepatobiliary in etiology. RUQ U/S shows no signs of choledocholithiasis however confirms that the CBD is dilated. -Seen by GI and got an MRCP last night. Preliminary read suggests signs of SMV thrombosis. -Will start on AC with therapeutic Lovenox. -Pain controlled on INPATIENT CARE MANAGER RN. #Elevated Blood Pressure: -Likely 2/2 to pain. -Will continue to monitor. #Nutrition: -NPO -IVF #DVT prophylaxis: -SQ Lovenox #Code Status: Full Code Honorio Belcher 03/31/2011 * Consult Note - Naga Zavala MD - 03/30/2011 8:57 PM EST Gastroenterology and Hepatology Inpatient Consultation Note Reason for consultation: Abdominal pain, abnormal imaging History of Present Illness: Vladimir Jones is a 60 year old female with medical history pertinent for hypothyroidism and GERD who reports she was in her usual state of health until early February of thisyear. She reports at that time flying to [place] to visit family with acute onset of pain in her RLQ. She reports this pain was dull, 7-8/10, without any associated symptoms of nausea/vomiting, fevers or chills. She reports this pain persisted for 9 days and she did not seek medical attention until the pain started radiating to her mid-abdomen and up to her chest. She reports having a CT scan performed in [place] which raised concerning for abnormal appearing jose francisco-cecal area. She underwent an initially attempted laparoscopic procedure with self-report that this was converted to a partially open procedure as there was evidence of a perforated appendix for which she underwent more extended resection including partial right colectomy. She reports having some interval improvement but then started experiencing lower mid-abdominal pain with report that she was diagnosed with a wound infection whichwas treated with antibiotics and did not require any further exploration. Since return home Ms. Jones reports she was recovering from above, seen at [facility] and given prescription for Keflex for completion of therapy for wound infection. She reports one day later, now 7 days ago, developing acute onset of epigastric pain which was clenching in quality, associated with nausea. Because of her symptomsMs. Jones presented to [facility] for further evaluation. There she underwent a CT which was read as revealing for no acute pathology but fatty infiltration of the liver, upper endoscopy which was reportedto be normal (report reviewed). Lab abnormalities notable for Alk Phos of 248, AST 44, ALT 111. Ms. Jones was discharged but now presents to [facility] because of ongoing pain. Evaluation since admission is revealing for labs including Alk Phos 215 with elevated GGT, ALT 80, AST 35, with normal totalbilirubin. CT performed revealing for dilated CBD to 15mm and possible changes related to acute pancreatitis. Abdominal ultrasound was limited secondary to body habitus without obvious choledocholithiasis. Per review Ms. Jones reports she underwent cholecystectomy 4 years ago for cholelithiasis andabdominal pain. She believes the pain that prompted her cholecystectomy resolved after surgery although she reports she has had some abdominal pains for years, although different than her current pres entation. Ms. Jones does not use any alcohol and has not in the past. She reports no new meds in the last few weeks with exception of Keflex. She takes Ibuprofen 800mg bid to tid for headache. She reports no prior history of pancreatitis. Past Medical History: #. Hypothyroidism #. GERD #. Asthma Medications: Scheduled Meds: ??? fluticasone-salmeterol 1 puff Inhalation Q12H ??? levothyroxine 75 mcg Oral Daily ??? esomeprazole 40 mg Oral Daily ??? sodium chloride 0.9 % 5 mL Intravenous Q12H ??? enoxaparin 40 mg Subcutaneous Daily ??? senna-docusate 1-4 tablet Oral BID ??? nystatin 500,000 Units Oral 4 Times Daily Continuous Infusions: ??? HYDROmorphone ??? sodium chloride 0.9% with potassium chloride 20 mEq 125 mL/hr (03/30/11 1520) ??? naloxone ??? INPATIENT CARE MANAGER RN ventura PRN Meds:.iohexol, albuterol, polyethylene glycol, bisacodyl, acetaminophen, ondansetron, ondansetron, diphenhydrAMINE, naloxone, prochlorperazine, bisacodyl Allergies Allergen Reactions ??? House Dust CIS - Allergic Rhinitis ??? Percocet (Oxycodone-acetaminophen) Other (See Comments) Dizziness Social History: Ms. Jones currently lives in [facility] with her . She has two children. 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 Soft, moderate tenderness to palpation in epigastrium Ext: No edema Labs/Imaging: Reviewed as above Assessment/Recommendation: Vladimir Jones is a 60 year old female with medical history pertinent for hypothyroidism who is currently admitted with epigastric pain and jose francisco-pancreatic fluid stranding on imaging after recent hospitalization with self-reported appendicitis requiring surgical resection complicated by wound infection. At this time, the association between Ms. Jones's recent history over the last month and her current presentation is not evident. Although her lipase is not elevated on admission, this is not a necessity to make a diagnosis of pancreatitis and she would otherwise meet Marianna criteria given her epigastric pain and abnormal imaging suggestive of pancreatitis. Assuming this is pancreatitis, again the etiology is not evident. There is no obvious choledocholithiasis on ultrasound, no history of alcohol use, normal triglycerides and calcium. The only new medication reported is Keflex which is not highly associated with pancreatitis. Evaluation is otherwise notable for elevated Alk Phos to 200 and ALT of 80. The latter could be relate to fatty infiltration of the liver but is difficult to say without benefit of prior lab values. The elevated Alk Phos does appear to be hepatic in origin and in conjunction with dilated CBD and now pancreatitis, does warrant exclusion of any obstructive pathology. CBD dilation after cholecystectomy is known but 15mm in the absence of chronic narcotics does seem more than expected. At this time I would recommend the following: - MRCP - if MRCP unrevealing would send anti-mitochondrial antibodies with next lab draw - supportive care as you are I have seen and examined Mrs. Jones with Dr. Suresh Angel. I have reviewed Dr. Curran's note including the history and physical exam. I agree with the details as written except as noted below. The assessment and plan were formulated in discussion with me and I agree with them as documented. 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 We recommend anticoagulation and serial imaging. * Plan of Care - Ursula De Santiago RN - 03/30/2011 4:46 PM EST Problem: Pain, Acute (Adult, Obstetric) Goal: Acute Pain: Acceptable Pain Control/Comfort Level - Pain, Acute (Adult, Obstetric) Outcome: Present (see interventions, notes) Pt continues to report RUQ and epigastric pain at this time. Pt reported pain comes in flares andis a stabbing, sharp, uncomfortable pain. Pain exacerbated with swallowing pills, palpation, or movement. Dilaudid INPATIENT CARE MANAGER RN present and pt using appropriately. INPATIENT CARE MANAGER RN providing adequate relief for pt. Willcontinue to monitor and assess pt's pain. Problem: Skin Integrity Impairment, Risk/Actual (Adult, Obstetric) Goal: Skin Integrity Impairment, Risk/Actual: Skin Integrity/Wound Healing Outcome: Absent and monitoring Thrush present on pt's tongue and throat at this time. Nystatin administered as scheduled and pt performing normal saline rinses PRN. Otherwise, pt skin remains intact at this time. Pt turning and repositioning self independently in bed/chair. Will continue to monitor pt's skin. Problem: Trauma/Injury Risk (Adult, Obstetric) Goal: Trauma/Injury Risk: Absence of Trauma/Injury/Falls Outcome: Present (see interventions, notes) Pt ARTF. Pt OOB with one person assist to help with IV pole and masimo. Pt calling appropriately for assistance OOB. Non skid socks present when ambulating. Problem: Constipation (Adult, Obstetric) Goal: Constipation: Bowel Elimination/Symptom Control Outcome: Absent and monitoring Pt with large BM this shift. Pt continues to receive IVF and remains NPO at this time. Stool softener administered as ordered. Will monitor for s/s of constipation. * Med Student Progress Note - Honorio Belcher - 03/30/2011 8:10 AM EST Inpatient Hospital Medicine - Progress Note Admit Date: 03/27/2011 Hospital Day 3 days Problem List: No resolved problems to display. Active Hospital Problems Diagnoses ??? Acute pancreatitis ??? Abdominal pain ??? Elevated alkaline phosphatase level ??? Nausea Resolved Hospital Problems Diagnoses Date Resolved Active Non-Hospital Problems Diagnoses ??? Hypothyroid 24 Hour Events: Asymptomatic elevation in BP to 180/90 - responded to 0.1 mg clonidine. Switched from continuous drip to INPATIENT CARE MANAGER RN due to excessive sleepiness. Per nurse - destat while sleeping to 91%, added 1L NC. Subjective: Abdominal pain mostly controlled with INPATIENT CARE MANAGER RN. Denies CP, SOB, nausea or vomiting. Scheduled Meds: ??? cloNIDine 0.1 mg Oral Once ??? fluticasone-salmeterol 1 puff Inhalation Q12H ??? levothyroxine 75 mcg Oral Daily ??? esomeprazole 40 mg Oral Daily ??? sodium chloride 0.9 % 5 mL Intravenous Q12H ??? enoxaparin 40 mg Subcutaneous Daily ??? senna-docusate 1-4 tablet Oral BID ??? nystatin 500,000 Units Oral 4 Times Daily Continuous Infusions: ??? HYDROmorphone ??? sodium chloride 0.9% with potassium chloride 20 mEq 125 mL/hr (03/30/11 0505) ??? naloxone ??? INPATIENT CARE MANAGER RN ventura ??? DISCONTD: HYDROmorphone Stopped (03/29/11 1322) PRN Meds:.iohexol, albuterol, polyethylene glycol, bisacodyl, acetaminophen, ondansetron, ondansetron, diphenhydrAMINE, naloxone, prochlorperazine, bisacodyl Physical Exam: Last Set of Vitals and range of vitals over past 24 hours: Last value Range last 24 hrs Temperature Temp: 36.9 ??C (98.4 ??F) Temp: [36.6 ??C (97.9 ??F)-37.7 ??C (99.9 ??F)] Heart Rate Heart Rate: 83 Heart Rate: [72-90] Blood Pressure BP: 138/78 mmHg BP: (122-180)/(60-90) Respiratory Rate Resp: 20 Resp: [18-20] SpO2 SpO2: 91 % SpO2: [91 %-99 %] Physical Exam Constitutional: She is oriented to person, place, and time. She appears well- developed and well-nourished. No distress. Neck: No JVD present. No thyromegaly present. Cardiovascular: Normal rate, regular rhythm, normal heart sounds and intact distal pulses. Exam reveals no gallop and no friction rub. No murmur heard. Pulmonary/Chest: Effort normal and breath sounds normal. No respiratory distress. She has no wheezes. She exhibits no tenderness. Mild bilateral basilar rhonchi. Abdominal: Soft. Bowel sounds are normal. She exhibits no distension (however obese ). Tenderness (to deep palpation) is present. She has guarding (voluntary). She has no rebound. Musculoskeletal: She exhibits no edema. Neurological: She is alert and oriented to person, place, and time. Skin: Skin is warm and dry. Laboratory (Last 24 Hours): Recent Results (from the past 24 hour(s)) CBC (WITH DIFF) Component Value Range ??? WBC 5.9 4.0 - 10.0 (x10(3)/mcL) ??? RBC 3.51 (*) 3.93 - 5.22 (x10(6)/mcL) ??? Hemoglobin 11.6 11.2 - 15.7 (gm/dL) ??? Hematocrit 34.2 34.0 - 45.0 (%) ??? MCV 97.4 (*) 79.0 - 94.0 (fL) ??? MCH 33.0 (*) 26.6 - 32.2 (pg) ??? MCHC 33.9 32.0 - 36.5 (gm/dL) ??? Platelets 193 145 - 370 (x10(3)/mcL) ??? RDWSD 45.2 35.0 - 46.0 (fL) ??? RDWCV 12.8 10.9 - 14.4 (%) ??? MPV 9.9 9.0 - 12.0 (fL) DIFFERENTIAL, AUTOMATED Component Value Range ??? Neutrophils % 55.3 34.0 - 71.0 (%) ??? Neutr Abs (ANC) 3.26 1.50 - 6.30 (x10(3)/mcL) ??? Lymphocytes % 21.5 19.0 - 53.0 (%) ??? Lymphocytes Abs 1.3 1.0 - 3.6 (x10(3)/mcL) ??? Monocytes % 19.0 (*) 4.0 - 13.0 (%) ??? Monocyte Abs 1.1 (*) 0.2 - 1.0 (x10(3)/mcL) ??? Eosinophils % 3.7 0.0 - 7.0 (%) ??? Eosinophils Abs 0.2 0.0 - 0.5 (x10(3)/mcL) ??? Basophils % 0.3 0.0 - 2.0 (%) ??? Basophils Abs 0.0 0.0 - 0.2 (x10(3)/mcL) ??? Immature Gran % 0.20 0.00 - 0.66 (%) ??? Philomena Gran Abs 0.01 0.00 - 0.05 (x10(3)/mcL) Intake/Output Summary (Last 24 hours) at 03/30/11 0825 Last data filed at 03/30/11 0600 Gross per 24 hour Intake 2947 ml Output 1350 ml Net 1597 ml Radiology: XR chest/abdomen (03/27/11): CHEST: The lungs are clear. No effusion or pneumothorax. The cardiomediastinal silhouette is borderline enlarged. ABDOMEN: No free air. There is a paucity of small gas within the small bowel limiting the evaluation for small bowel obstruction. A single air-fluid level is present in the left upper quadrant of theabdomen. There is air present projecting at the level of the rectosigmoid colon. Overall, this bowel gas pattern is nonspecific. Surgical clips are present in the right upper quadrant. CT (03/28/11): 1. Findings concerning for possible acute pancreatitis. 2. No free air or free fluid. 3. Status post cholecystectomy. 4. Unremarkable small bowel/colon anastomosis. Assessment: This is a 60-year-old woman with nausea and epigastric pain s/p appendectomy, right hemicolectomy, and cholecystectomy. Cholestatic pattern found on LFT's with a normal bilirubin. She has had an extensive work up for this pain. Signs suggestive for acute pancreatitis found on CT here. NPO, on INPATIENT CARE MANAGER RN, IVF over weekend with plans to work up causes. Plan: #Acute Pancreatitis: -Normal lipase, however CT shows sign suggestive so we will treat as such with pain control, NPO, and IVF. Possible choledocholithiasis as a cause being s/p cholecystectomy with CBD 13mm, however normal bili, further work-up may include an ERCP or EUS. Will get RUQ ultrasound to investigate prior noted dilated CBD. -TG normal, GGT consistent with elevated alk phos being hepatobiliary in etiology. -Became drowsy on continuous narcotic drip, changed to INPATIENT CARE MANAGER RN. #Elevated Blood Pressure: -SBP max at 180. Likely 2/2 to pain. Responded to 0.1mg clonidine. Returned to baseline. -Will continue to monitor. #Hypoxia: -Asymptomatic during sleep - likely 2/2 ZIA. Does not require supplemental O2 while awake. #Nutrition: -NPO -IVF wide open #DVT prophylaxis: -SQ Lovenox #Code Status: Full Code Honorio Salazar Simi 03/30/2011 * Plan of Care - Robert Cardoso RN - 03/30/2011 2:34 AM EST Problem: Pain, Acute (Adult, Obstetric) Goal: Acute Pain: Acceptable Pain Control/Comfort Level - Pain, Acute (Adult, Obstetric) Outcome: Present (see interventions, notes) Pt c/o RUQ/epigastric abdominal pain. Pain is intermittently severe, but patient is more comfortable with the continuous on her INPATIENT CARE MANAGER RN. Easily awakens, a/o x3 and ambulated in hallway this evening with SBA. Pt needs reminders to hit her INPATIENT CARE MANAGER RN button when in pain and to try and keep it controlled at a low level (4/10) to prevent sudden, severe pain episodes as she has been having these the last couple of days. Continues to be NPO. Large amount of thrush noted and nystatin given, as well as pt performing NS rinses. Desats to 80's on RA while asleep, maintained sats >90% on 1L per NC this shift. Problem: Trauma/Injury Risk (Adult, Obstetric) Goal: Trauma/Injury Risk: Absence of Trauma/Injury/Falls Outcome: Present (see interventions, notes) A.o x3 and up with SBA, using her call light appropriately. Problem: Constipation (Adult, Obstetric) Goal: Constipation: Bowel Elimination/Symptom Control Outcome: Present (see interventions, notes) Pt continues to be constipated but had BM 03/29, continued bowel regimen. Will continue to monitor and support as needed. * Plan of Care - Maranda Fenton RN - 03/29/2011 1:54 PM EST Problem: Pain, Acute (Adult, Obstetric) Goal: Acute Pain: Acceptable Pain Control/Comfort Level - Pain, Acute (Adult, Obstetric) Patient's pain assessed regularly, INPATIENT CARE MANAGER RN adjusted per M.D. Order. Continuous infusion re-ordered due to continued pain. Patient rested more comfortably. Offered support. Reviewed INPATIENT CARE MANAGER RN parameters again with patient. Problem: Skin Integrity Impairment, Risk/Actual (Adult, Obstetric) Goal: Skin Integrity Impairment, Risk/Actual: Skin Integrity/Wound Healing No skin breakdown noted during skin assessment. Continue to monitor. Problem: Trauma/Injury Risk (Adult, Obstetric) Goal: Trauma/Injury Risk: Absence of Trauma/Injury/Falls Patient alert and oriented x 4. and son in room with patient at bedside all day. Reminded patient and family to have someone assist her when out of bed for safety. Problem: Constipation (Adult, Obstetric) Goal: Constipation: Bowel Elimination/Symptom Control Patient able to move her bowels this morning. Narcotic bowel orders still being followed per physician. * Plan of Care - Robert Cardoso RN - 03/29/2011 2:01 AM EST Problem: Pain, Acute (Adult, Obstetric) Goal: Acute Pain: Acceptable Pain Control/Comfort Level - Pain, Acute (Adult, Obstetric) Outcome: Present (see interventions, notes) Pt having moderate/severe abdominal pain but able to control well with Dilaudid INPATIENT CARE MANAGER RN. C/o nausea andPRN compazine and zofran given, no nausea. +bowel sounds, soft abdomen. Continued bowel regimen, patient reports no BM since 03/23. Problem: Skin Integrity Impairment, Risk/Actual (Adult, Obstetric) Goal: Skin Integrity Impairment, Risk/Actual: Skin Integrity/Wound Healing Outcome: Present (see interventions, notes) No skin breakdown noted. Problem: Trauma/Injury Risk (Adult, Obstetric) Goal: Trauma/Injury Risk: Absence of Trauma/Injury/Falls Outcome: Present (see interventions, notes) Up ad luis/SBA with IV lines/monitors. Ambulating in room . Fall precautions in place. Pt's son staying at bedside this shift, supportive. A/o x3 and using call light appropriately. * Plan of Care - Lyla Vines RN - 03/28/2011 4:48 PM EST Problem: Constipation (Adult, Obstetric) Goal: Constipation: Bowel Elimination/Symptom Control Outcome: Absent and monitoring LBM was 03/23 per pt. Pt. Medicated with 4 senna and 2 biscodyl with no effect. Will continue to monitor. Hyperactive bsx4. * Plan of Care - Maranda Fenton RN - 03/28/2011 4:01 PM EST Problem: Pain, Acute (Adult, Obstetric) Goal: Acute Pain: Acceptable Pain Control/Comfort Level - Pain, Acute (Adult, Obstetric) Patient's pain assessed regularly and pain medications administered as ordered but patient's pain med was not lasting long enough and complete relief was not attained so physicians contacted and INPATIENT CARE MANAGER RN was ordered with relief. Patient able to rest comfortably. Problem: Skin Integrity Impairment, Risk/Actual (Adult, Obstetric) Goal: Skin Integrity Impairment, Risk/Actual: Skin Integrity/Wound Healing Patient's skin assessed per protocol. Laproscopic site dry and intact from previous surgery. No other skin areas of concern noted. Problem: Trauma/Injury Risk (Adult, Obstetric) Goal: Trauma/Injury Risk: Absence of Trauma/Injury/Falls Patient alert and oriented x 4. Able to ambulate off unit to use bathroom (roomate using bathroom) pushing IV pole with assist of this morning. Reviewed INPATIENT CARE MANAGER RN pump setting with patient/ and asked patient to ring dietz should she need to get out of bed. * Med Student H&P - Honorio Belcher - 03/28/2011 12:39 PM EST Inpatient Hospital Medicine - Admission Note Problem List: No resolved problems to display. Active Hospital Problems Diagnoses ??? Abdominal pain ??? Elevated alkaline phosphatase level Resolved Hospital Problems Diagnoses Date Resolved Active Non-Hospital Problems Diagnoses ??? Hypothyroid ID: 60 y.o. Female presents to [facility] with nausea and abdominal pain. History of Present Illness: HPI Mrs. Jones is a 60-year-old woman who presents with abdominal pain with associated nausea, without vomiting. She was recently in [place] in February when she developed RUQ abdominal pain which she describes as sharp and constant. Her pain was unchanged for about 10 days at which point the pain intensified and she sought medical attention. She denies ever having fever, chills, or sweats. While hospitalized in [place] she underwent a laparoscopic appendectomy which was converted to a right hemicolectomyfor concern of malignancy while visualizing thickening of the cecum during surgery. She was discharged home with follow-up with her PCP in [place]. She continued to have abdominal pain however now localized in the epigastrium and described as an aching pain. After follow up with her PCP she was admitted to the hospital where she was found to have cholestatic pattern on LFTs with ALT 125, AST 60 Alk phos 185 with normal WBC and bilirubin. She also had an amylase of 47 and a lipase of 114. She also had a CT abd/pel, ultrasound of abdomen and pelvis, as well as an EGD w/ biopsies. Imaging was remarkable for an right adnexal mass which was found to be consistent with an ovary and dilation of the CBD at 13 mm. Biopsies from gastric antrum arepending. EKG showed sinus rhythm and cardiac enzymes were negative times 3. She pain and nausea were controlled with IV medication. She was then transitioned to PO pain meds in preparation for discharge. The day of her discharge she continued to have epigastric pain and presented to [facility] for further evaluation. Of note she is s/p cholecystectomy, hysterectomy, and right oophorectomy. Review of Systems: Review of Systems Constitutional: Positive for appetite change (No appetite) and unexpected weight change (Lost 14 lbs since February and recently gain back about 10). Negative for fever and chills. Eyes: Negative for visual disturbance. Respiratory: Positive for shortness of breath (hurts to breath). Negative for cough and chest tightness. Cardiovascular: Negative for chest pain, palpitations and leg swelling. Gastrointestinal: Positive for nausea, abdominal pain and constipation. Negative for vomiting, diarrhea, blood in stool and abdominal distention. Skin: Negative for color change and rash. Neurological: Negative for dizziness, weakness, light-headedness, numbness and headaches. Hematological: Does not bruise/bleed easily. Past Medical and Surgical History: Past Medical History Diagnosis Date ??? Hypothyroid ??? GERD (gastroesophageal reflux disease) ??? Asthma Past Surgical History Procedure Date ??? Cholecystectomy ??? Hysterectomy ??? Appendectomy ??? Hemicolectomy right ??? Ovary removal right Prior To Admission Medications: Prescriptions prior to admission Medication Sig Dispense Refill ??? fluticasone-salmeterol (ADVAIR) 100-50 mcg/dose diskus inhaler Inhale 1 puff into the lungs every 12 hours. ??? albuterol (PROVENTIL HFA;VENTOLIN HFA) 90 mcg/Actuation inhaler Inhale 2 puffs into the lungs every 4 hours as needed. Use with spacer ??? omeprazole (PRILOSEC) 10 mg capsule Take 10 mg by mouth daily. ??? levothyroxine (SYNTHROID) 25 mcg tablet Take 75 mcg by mouth daily. Allergies: Allergies Allergen Reactions ??? House Dust CIS - Allergic Rhinitis ??? Percocet (Oxycodone-acetaminophen) Other (See Comments) Dizziness Family History: History reviewed. No pertinent family history. Social History and Habits: History Social History ??? Marital Status: Spouse Name: N/A Number of Children: N/A ??? Years of Education: N/A Occupational History ??? Not on file. Social History Main Topics ??? Smoking status: Never Smoker ??? Smokeless tobacco: Not on file ??? Alcohol Use: Not on file ??? Drug Use: Not on file ??? Sexually Active: Not Currently Other Topics Concern ??? Not on file Social History Narrative ??? No narrative on file Immunizations: There is no immunization history on file for this patient. Physical Exam: Last Set of Vitals and range of vitals over past 24 hours: Last value Range last 24 hrs Temperature Temp: 37.1 ??C (98.8 ??F) Temp: [36.7 ??C (98.1 ??F)-37.1 ??C (98.8 ??F)] Heart Rate Heart Rate: 102 Heart Rate: [75-105] Blood Pressure BP: 158/72 mmHg BP: (126-158)/(71-86) Respiratory Rate Resp: 16 Resp: [14-18] SpO2 SpO2: 93 % SpO2: [93 %-98 %] Physical Exam Constitutional: She is oriented to person, place, and time. She appears well- developed and well-nourished. No distress. HENT: Head: Normocephalic and atraumatic. Eyes: EOM are normal. Neck: Neck supple. No JVD present. No thyromegaly present. Cardiovascular: Normal rate, regular rhythm, normal heart sounds and intact distal pulses. Exam reveals no gallop and no friction rub. No murmur heard. Pulmonary/Chest: Breath sounds normal. No respiratory distress (poor effort d/t pain). Abdominal: Soft. Bowel sounds are normal. She exhibits no distension and no mass. Tenderness is present. She has guarding (voluntary). She has no rebound. Musculoskeletal: She exhibits no edema. Neurological: She is alert and oriented to person, place, and time. Skin: Skin is warm and dry. No rash noted. She is not diaphoretic. Laboratory (Last 24 Hours): Recent Results (from the past 24 hour(s)) CBC (WITH DIFF) Component Value Range ??? WBC 10.4 (*) 4.0 - 10.0 (x10(3)/mcL) ??? RBC 3.82 (*) 3.93 - 5.22 (x10(6)/mcL) ??? Hemoglobin 12.4 11.2 - 15.7 (gm/dL) ??? Hematocrit 36.0 34.0 - 45.0 (%) ??? MCV 94.2 (*) 79.0 - 94.0 (fL) ??? MCH 32.5 (*) 26.6 - 32.2 (pg) ??? MCHC 34.4 32.0 - 36.5 (gm/dL) ??? Platelets 175 145 - 370 (x10(3)/mcL) ??? RDWSD 43.7 35.0 - 46.0 (fL) ??? RDWCV 12.7 10.9 - 14.4 (%) ??? MPV 10.6 9.0 - 12.0 (fL) ELECTROLYTES PANEL Component Value Range ??? Sodium 136 135 - 145 (mmol/L) ??? Potassium 4.2 3.5 - 5.0 (mmol/L) ??? Chloride 99 98 - 107 (mmol/L) ??? CO2 28 22 - 31 (mmol/L) ??? Anion Gap 9 5 - 15 (mmol/L) BUN Component Value Range ??? BUN 9 8 - 18 (mg/dL) CREATININE, SERUM Component Value Range ??? Creatinine 0.55 (*) 0.70 - 1.20 (mg/dL) ? ? Estimated GFR >60 >=60 GLUCOSE, RANDOM Component Value Range ??? Glucose Lvl 94 60 - 199 (mg/dL) HEPATIC FUNCTION PANEL Component Value Range ??? Total Protein 6.8 6.4 - 8.3 (gm/dL) ??? Albumin 3.9 3.2 - 5.2 (gm/dL) ??? AST 35 (*) 0 - 30 (unit/L) ??? ALT 80 (*) 0 - 30 (unit/L) ??? Alk Phos 215 (*) 40 - 104 (unit/L) ??? Total Bilirubin 0.8 0.2 - 1.3 (mg/dL) ??? Bili, Direct 0.3 0.0 - 0.3 (mg/dL) LIPASE Component Value Range ??? Lipase 17 0 - 60 (unit/L) DIFFERENTIAL, AUTOMATED Component Value Range ??? Neutrophils % 66.4 34.0 - 71.0 (%) ??? Neutr Abs (ANC) 6.89 (*) 1.50 - 6.30 (x10(3)/mcL) ??? Lymphocytes % 15.2 (*) 19.0 - 53.0 (%) ??? Lymphocytes Abs 1.6 1.0 - 3.6 (x10(3)/mcL) ??? Monocytes % 16.4 (*) 4.0 - 13.0 (%) ??? Monocyte Abs 1.7 (*) 0.2 - 1.0 (x10(3)/mcL) ??? Eosinophils % 1.3 0.0 - 7.0 (%) ??? Eosinophils Abs 0.1 0.0 - 0.5 (x10(3)/mcL) ??? Basophils % 0.4 0.0 - 2.0 (%) ??? Basophils Abs 0.0 0.0 - 0.2 (x10(3)/mcL) ??? Immature Gran % 0.30 0.00 - 0.66 (%) ??? Philomena Gran Abs 0.03 0.00 - 0.05 (x10(3)/mcL) SCAN, PERIPHERAL BLOOD Component Value Range ??? Plat Estimate Normal ??? RBC Morphology Abnormal ??? Ovalocytes 1-5 (/HPF) ??? Ivania Cells 1-5 (/HPF) NUCLEATED RED BLOOD CELLS Component Value Range ??? nRBC % Auto 0.0 0.0 - 0.2 (%) ??? nRBC Abs Auto 0.000 0.000 - 0.012 (x10(3)/mcL) POCT URINE DIPSTICK Component Value Range ??? POC Sp [place] 1.010 1.002 - 1.030 ??? POC pH, UA 8 5.0 - 8.5 ??? POC Leuk, UA neg Negative - Negative ??? POC Nitrite, UA neg Negative - Negative ??? POC Protein, UA neg Negative - Negative (mg/dL) ??? POC Glucose, UA neg Normal - Normal (mg/dL) ??? POC Ketone, UA neg Negative - Negative ??? POC Urobil, UA ++ 0.2 - 1.0 (mg/dL) ??? POC Bili, UA ++ Negative - Negative ??? POC Blood, UA neg Negative - Negative (karishma/uL) Radiology: CT (03/28/11)- 1. Findings concerning for possible acute pancreatitis. 2. No free air or free fluid. 3. Status post cholecystectomy. 4. Unremarkable small bowel/colon anastomosis. Assessment: This is a 60-year-old woman with nausea and epigastric pain s/p appendectomy, right hemicolectomy, and cholecystectomy. Cholestatic pattern found on LFT's with a normal bilirubin. She has had an extensive work up for this pain and presents for further evaluation. Plan: #Abdominal Pain: -Ddx include: Acute Pancreatitis - not likely with normal lipase, however CT shows sign suggestive so we will treat as such with pain control, NPO, and IVF. Will investigate for causes. Choledocholithiasis - dilated CBD on RUQ u/s, however normal bili, further work- up with include an ERCP or EUS. Gastric ulceration +/- perforation - recent EGD was unremarkable Hepatic or subphrenic abscess - ruled out with CT Abdominal Aortic Aneurysm - ruled out with CT and abdominal u/s Acalculous cholecystitis - unlikely since she is s/p cholecystectomy Mesenteric Ischemia: unlikely d/t lack or risk factors. Acute Intermittent Porphyria - consider sending urine PBG -CT abd/pelvis suggestive of pancreatitis #Nutrition: -NPO -IVF wide open #DVT prophylaxis: -SQ Lovenox #Code Status: Full Code A copy of this document will be sent to the patient's Primary Care Physician and/or Referring Physician. Honorio Belcher 03/28/2011 * Miscellaneous - Provider, Scanning - 03/28/2011 4:19 AM EST * Miscellaneous - Provider, Scanning - 03/27/2011 8:55 PM EST * ED Triage - Mikael Stafford RN - 03/27/2011 8:14 PM EST PT is A/Ox4, CTA bilat, warm dry skin, strong reg pulse. Ambulatory but complaints of pain w/ movement * ED Triage - Mikael Stafford RN - 03/27/2011 8:12 PM EST PT here for c/o ABD pain (onset Wednesday mid upper ABD, worse w/ palp, movement and deep breath, soreness, radiates to back, 10/10, intermittently severe). W/ nausea and some SOB from pain on inspiration. PT was discharged today from [facility] where she was admitted and worked up for the same since Wednesday. PT signed to have records transferred. Reports poor pain control at home w/ vicodin. documented in this encounter Plan of Treatment Scheduled Orders Name Type Priority Associated Diagnoses Orde r Schedule POCT INR Point of Care Testing Routine Abdominal pain, right upper quadrant Ordered: 04/03/2011 Scheduled Procedures Name Priority Associated Diagnoses Date/Ti ct EGD, UPPER GI ENDOSCOPY (WRV U 2.09) Esophageal varices without bleeding, unspecified esophageal varices type Portal vein thrombosis Scheduled Referrals Name Type Priority Associated Diagnoses Order Schedule REFERRAL TO ANTICOAGULATION MONITORING Outpatient Referral Routine Abdominal pain, right upper quadrant Ordered: 04/03/2011 Non-DH / Pending Appointments Outpatient Referral Routine Abdominal pain, right upper quadrant Ordered: 04/03/2011 REFERRAL TO GASTROENTEROLOGY Outpatient Referral Routine Abdominal pain, right upper quadrant Ordered: 04/03/2011 documented as of this encounter Procedures Procedure Name Priority Date/Time Associated Diagnosis Comments XR ABDOMEN ACUTE SERIES W PA CHEST Routine 04/03/2011 12:29 PM EST BMP W/FASTING GLUCOSE Routine 04/03/2011 3:45 AM EST DIFFERENTIAL, AUTOMATED Routine 04/03/20 11 3:45 AM EST PROTHROMBIN TIME Routine 04/03/2011 3:45 AM EST CBC (WITH DIFF) Routine 04/03/2011 3:45 AM EST US ABDOMEN LIMITED WITH VASCULAR Routine 04/02/2011 4:05 PM EST URINALYSIS WITH REFLEX CULTURE Routine 1 06/02/2010 6:42 AM EST BMP W/FASTING GLUCOSE Routine 04/02/2011 3:04 AM EST DIFFERENTIAL, AUTOMATED Routine 04/02/20 11 3:04 AM EST CBC (WITH DIFF) Routine 04/02/2011 3:04 AM EST IVC COMPLETE Routine 04/01/2011 8:42 AM EST BMP W/FASTING GLUCOSE Routine 04/01/2011 4:00 AM EST DIFFERENTIAL, AUTOMATED Routine 04/01/20 11 4:00 AM EST MITOCHONDRIAL ANTIBODY, M2 Routine 04/01 4:00 AM EST CBC (WITH DIFF) Routine 04/01/2011 4:00 AM EST BMP W/FASTING GLUCOSE Routine 03/31/2011 3:55 AM EST DIFFERENTIAL, AUTOMATED Routine 03/31/20 11 3:55 AM EST CBC (WITH DIFF) Routine 03/31/2011 3:55 AM EST HEPATIC FUNCTION PANEL Routine 1 3:55 AM EST MRI CHOLANGIOPANCREATOGRAPHY Routine 11:35 PM EST US ABDOMEN LIMITED Routine 03/30/2011 10:47 AM EST DIFFERENTIAL, AUTOMATED Routine 03/30/20 11 3:38 AM EST CBC (WITH DIFF) Routine 03/30/2011 3:38 AM EST CMP W/FASTING GLUCOSE Routine 03/29/2011 4:04 AM EST DIFFERENTIAL, AUTOMATED Routine 03/29/20 11 4:04 AM EST CBC (WITH DIFF) Routine 03/29/2011 4:04 AM EST TRIGLYCERIDE Routine 03/29/2011 4:04 AM EST GAMMA GT Routine 03/29/2011 4:[address] ABDOMEN AND PELVIS W CONTRAST Routine 03/28/2011 4:54 AM EST POCT URINE DIPSTICK STAT 03/27/2011 10:01 PM EST XR ABDOMEN ACUTE SERIES W PA CHEST Routine 03/27/2011 9:50 PM EST SCAN, PERIPHERAL BLOOD STAT 1 9:25 PM EST NUCLEATED RED BLOOD CELLS STAT 2010 9:25 PM EST DIFFERENTIAL, AUTOMATED STAT 03/27/20 11 9:25 PM EST CREATININE STAT 03/27/2011 9:25 PM EST CBC (WITH DIFF) STAT 03/27/2011 9:25 PM EST BUN STAT 03/27/2011 9:25 PM EST LIPASE STAT 03/27/2011 9:25 PM EST GLUCOSE STAT 03/27/2011 9:25 PM EST HEPATIC FUNCTION PANEL STAT 1 9:25 PM EST ELECTROLYTES PANEL STAT 03/27/2011 9: 25 PM EST documented in this encounter Results * XR ABDOMEN ACUTE SERIES WITH PA CHEST (04/03/2011 12:29 PM EST) Anatomical Region Laterality Modality Abdomen, Chest N/A Radiographic Richa ging 04/03/2011 12:2 9 PM EST Impressions 04/05/2011 11:09 AM EST IMPRESSION: 1. ??No free air. ?? 2. ??Paucity of air in small bowel segments and no bowel dilatation seen. ?? Findings are nonspecific and I cannot exclude obstruction. Narrative 04/05/2011 11:09 AM EST ACUTE ABDOMINAL SERIES WITH CHEST: HISTORY: ??Hypoactive bowel sound. ??Recent narcotic use and epigastric pain. ?? FINDINGS: ??There is no free air beneath the diaphragm. ??A paucity of air in intestinal structures. ??Several short air filled small bowel and colonic segments are not dilated. ??The lung bases are clear. ??The right diaphragm is elevated. ??There are right upper quadrant surgical ayse that suggest prior cholecystectomy. ?? Procedure Note Madalyn Martinez MD - 04/05/2011 ACUTE ABDOMINAL SERIES WITH CHEST: HISTORY: Hypoactive bowel sound. Recent narcotic use and epigastricpain. FINDINGS: There is no free air beneath the diaphragm. A paucity of airin intestinal structures. Several short air filled small bowel and colonic segments are not dilated. The lung bases are clear. The right diaphragmis elevated. There are right upper quadrant surgical ayse that suggestprior cholecystectomy. IMPRESSION IMPRESSION: 1. No free air. 2. Paucity of air in small bowel segments and no bowel dilatation seen. Findings are nonspecific and I cannot exclude obstruction. Ana Maria Pereira MD IMG DX ORDERABLES * (ABNORMAL) DIFFERENTIAL, AUTOMATED (04/03/2011 3:45 AM EST) Neutrophil % 58.7 34.0 - 71.0 % CERNER MILLENNIUM Neutrophil Absolute 3.95 1.50 - 6.30 x10(3)/mc L CERNER MILLENNIUM Lymph % 23.7 19.0 - 53.0 % CERNER MILLENNIUM Lymphocytes Abs 1.6 1.0 - 3.6 x10(3)/mc L CERNER MILLENNIUM Monocyte % 14.8(H) 4.0 - 13.0 % CERNER MILLENNIUM Monocyte Abs 1.0 0.2 - 1.0 x10(3)/mc L CERNER MILLENNIUM Eos % 2.1 0.0 - 7.0 % CERNER MILLENNIUM Eosinophils Abs 0.1 0.0 - 0.5 x10(3)/mc L CERNER MILLENNIUM Basophil % 0.4 0.0 - 2.0 % CERNER MILLENNIUM Baso Absolute 0.0 0.0 - 0.2 x10(3)/mc L CERNER MILLENNIUM Immature Gran % 0.30 0.00 - 0.66 % CERNER MILLENNIUM Comment: Immature granulocytes(IG's)percentage and absolute count will include metamyelocytes, myelocytes, and promyelocytes. Blood smears from CBCs yielding IG's will be scanned manually for concordance. If this scan disagrees with the automated IG or if promyelocytes are noted, a manual differential will be performed. Immature Gran Absolute 0.02 0.00 - 0.05 x10(3)/mc L [facility] Blood specimen (specimen) 04/03/2011 3:45 AM EST 04/03/2011 3:51 AM EST Sreekanth Lucas MD HEMATOLOGY ORDERA BLES Performing Organization Address [facility] de Phone Number RASHAD GARCIA * (ABNORMAL) Prothrombin Time (04/03/2011 3:45 AM EST) Prothrombin Time 15.2(H) 12.3 - 14.7 sec [facility] Comment: [facility] Transfusion Committee Guidelines: INR less than 2.0, PTT less than OR equal to 43.5 seconds, or Fibrinogen greater than or equal to 100 mg/dl indicate adequate procoagulant activity for hemostasis in patients without underlying bleeding disorders. International Normalization Ratio 1.2(H) 0.9 - 1.1 [facility] Blood specimen (specimen) 04/03/2011 3:45 AM EST 04/03/2011 3:51 AM EST Sreekanth Lucas MD HEMATOLOGY ORDERA BLES Performing Organization Address [facility] de Phone Number RASHAD GARCIA * (ABNORMAL) BMP w/fasting Glucose (04/03/2011 3:45 AM EST) Glucose Fasting 79 65 - 99 mg/dL [facility] [employer] Comment: ?Fasting* Glucose Interpretive Criteria Normal ?65-99 mg/dL Impaired Fasting glucose ?100-125 mg/dL Consistent with Diabetes Mellitus ? >or= 126 mg/dL *Fasting is defined as no caloric intake for at least 8 hours In the absence of unequivocal hyperglycemia a plasma glucose value of >or= 126 mg/dL should be repeated on a subsequent day. Diagnosis and Classification of Diabetes Mellitus, Position Statement from the [place] [employer]. ??Diabetes Care, Volume 33, Supplement 1, May 2009 Blood Urea Nitrogen 4(L) 8 - 18 mg/dL CERNER MILLENNIUM Comment:result rechecked-[facility] Creatinine 0.40(L) 0.70 - 1.20 mg/dL CERNER MILLENNIUM Sodium 138 135 - 145 mmol/L CERNER MILLENNIUM Potassium 4.0 3.5 - 5.0 mmol/L CERNER MILLENNIUM Comment: Please note: ??Patients with WBC >100,000 may have falsely elevated Potassium levels. ??For accurate Potassium quantification in these patients send serum separator tube (gold top) for subsequent determinations. ??Contact the Clinical Chemistry Laboratory if there are any questions. Chloride 97(L) 98 - 107 mmol/L CERNER MILLENNIUM Carbon Dioxide 29 22 - 31 mmol/L CERNER MILLENNIUM Anion Gap 12 5 - 15 mmol/L CERNER MILLENNIUM Calcium 9.9 8.5 - 10.5 mg/dL CERNER MILLENNIUM Est Glomerular Filtration Rate >60 >=60 CERNER MILLENNIUM Comment: The National Kidney Disease Education Program (NKDEP) has recommended all laboratories report estimated GFR (eGFR) along with plasma creatinine measurements to assist you with recognition of early kidney disease. Caveats: ??Plasma creatinine should be at steady-state (unchanged within the past week). For patients multiply eGFR by 1.2.MDRD equation has not been validated for pediatric patients and is only valid for patients with age >= 18 years. At present, NKDEP does NOT recommend using the MDRD equation for drug dosing purposes and pharmacists should continue to use their current dosing methods. In addition, numerical eGFR values greater than 60 ml/min/1.73 square meters should be treated as > 60, and not an exact number due to greater inaccuracies at these higher values. Per NKDEP, they classify normal renal function as any GFR >60ml/min/1.73 square meters; chronic kidney disease when GFR <60, and renal failure when GFR <15. ??This calculation may not be valid for patients with atypical muscle mass (very lean or obese), acute renal failure, and in patients with diabetic kidney disease. References: http://nkdep.nih.gov/resources/NKDEP_Suggestn4Labs_0606_508.pdf http://www.kidney.org/professionals/kls/pdf/faq_gfr.pdf Blood specimen (specimen) 04/03/2011 3:45 AM EST 04/03/2011 3:51 AM EST Sreekanth Lucas MD CHEMISTRY ORDERAB LES Performing Organization Address City/[facility]/ZIP Co de Phone Number [facility] * (ABNORMAL) CBC (with Diff) (04/03/2011 3:45 AM EST) White Blood Cell 6.7 4.0 - 10.0 x10(3)/mc L CERNER MILLENNIUM Red Blood Cell 3.92(L) 3.93 - 5.22 x10(6)/mc L CERNER MILLENNIUM Hemoglobin 12.5 11.2 - 15.7 gm/dL CERNER MILLENNIUM Hematocrit 37.2 34.0 - 45.0 % CERNER MILLENNIUM Mean Cell Volume 94.9(H) 79.0 - 94.0 fL CERNER MILLENNIUM Mean Cell Hemoglobin 31.9 26.6 - 32.2 pg CERNER MILLENNIUM Mean Cell Hemoglobin Concentration 33.6 32.0 - 36.5 gm/dL CERNER MILLENNIUM Platelet 303 145 - 370 x10(3)/mc L CERNER MILLENNIUM RDW Standard Deviation 43.7 35.0 - 46.0 fL CERNER MILLENNIUM RDW coefficient of variation 12.8 10.9 - 14.4 % CERNER MILLENNIUM Mean Platelet Volume 9.6 9.0 - 12.0 fL CERNER MILLENNIUM Blood specimen (specimen) 04/03/2011 3:45 AM EST 04/03/2011 3:51 AM EST Sreekanth Lucas MD HEMATOLOGY ORDERA BLES [facility] * ABDOMEN LIMITED WITH VASCULAR (04/02/2011 4:05 PM EST) Anatomical Region Laterality Modality Abdomen Ultrasound 04/02/2011 4:05 PM EST Narrative 04/02/2011 4:24 PM EST ?Abdominal Report ? (Signed Final 04/02/2011 04:23 pm) Patient Info ID: ? [id number] ? : ??50 (60 yrs) Name: ? VLADIMIR JONES ? Visit Date: 04/02/2011 04:01 pm Performed By Performed By: ?Jania Oconnell RDMS Associate: ? Misbah COLON, Rene Ponce Attending: ? Timi COLON, Melissa Ponce Referred By: ? JOJO Trejo MD Accession#: ?[id number] Service(s) Provided UABDLIMVAS - Abdominal Limited Survey Single ?81687, [id number] Organ or Quadrant with Vascular - [id number], [id number] Indications Evaluate liver doppler Assess for portal vein thrombosis ----- Liver ----- Portal Veins: ?Echogenic with no flow on color doppler Hepatic Veins: ?? Patent Comment: ?Hepatic Artery ( [place]): 0.76 Biliary Tract Intrahepatic Ducts: ?? Normal Extrahepatic Ducts: ?? Severe dilatation Common Duct Size: ? 11.8 ?mm -------- Pancreas -------- Head: ? Normal Tail: ? Poorly visualized due to overlying bowel Body: ? Normal Impression Ultrasound - Abdomen Limited - Summary 1. ??Portal vein thrombus with no flow identified in the main, right, or left portal veins. 2. ??Patent hepatic veins with normal doppler waveforms. I ??viewed the images and agree with the above interpretation. Thank you for allowing us to participate in the care of VLADIMIR JONES. Please do not hesitate to call if you have any questions. ? Melissa Capellan MD Electronically Signed Final Report ?? 04/02/2011 04:23 pm Film and interpretation reviewed by the attending Procedure Note Melissa Capellan MD - 04/02/2011 Abdominal Report (Signed Final 04/02/2011 04:23 pm) Patient Info ID: [id number] : 50 (60 yrs) Name: VLADIMIR JONES Visit Date: 04/02/2011 04:01 pm Performed By Performed By: Jania Oconnell RDMS Associate: Rene Crawley MD Attending: Melissa Capellan MD Referred By: JOJO Trejo MD Service(s) Provided UABDLIMVAS - Abdominal Limited Survey Single 18246, 26772 Organ or Quadrant with Vascular - [id number], [id number] Indications Evaluate liver doppler Assess for portal vein thrombosis ----- Liver ----- Portal Veins: Echogenic with no flow on color doppler Hepatic Veins: Patent Comment: Hepatic Artery ( [place]): 0.76 Biliary Tract Intrahepatic Ducts: Normal Extrahepatic Ducts: Severe dilatation Common Duct Size: 11.8 mm -------- Pancreas -------- Head: Normal Tail: Poorly visualized due to overlying bowel Body: Normal Impression Ultrasound - Abdomen Limited - Summary 1. Portal vein thrombus with no flow identified in the main, right, or left portal veins. 2. Patent hepatic veins with normal doppler waveforms. I viewed the images and agree with the above interpretation. Thank you for allowing us to participate in the care of VLADIMIR JONES. Please do not hesitate to call if you have any questions. Melissa Capellan MD Electronically Signed Final Report 04/02/2011 04:23 pm Film and interpretation reviewed by the attending Sreekanth Lucas MD IMG US GEN ORDERA BLES * (ABNORMAL) Urinalysis with microscopic (04/02/2011 6:42 AM EST) Glucose, Urine Dipstick Negative Negative mg/dL CERNER MILLENNIUM Protein, Urine Dipstick Negative mg/dL CERNER MILLENNIUM Bilirubin, Urine Dipstick Negative Negative mg/dL CERNER MILLENNIUM Urobilinogen, Urine Dipstick Normal mg/dL CERNER MILLENNIUM pH, Urn (dipstick) 6.5 5.0 - 8.0 CERNER MILLENNIUM Blood, Urine Dipstick Negative mg/dL CERNER MILLENNIUM Ketone, Urine Dipstick 40(A) Neg mg/dL CERNER MILLENNIUM Nitrite, Urine Dipstick Negative CERNER MILLENNIUM Leukocytes, Urine Dipstick Negative mcL CERNER MILLENNIUM Appearance, Urine Dipstick Clear Clear CERNER MILLENNIUM Specific [place] Urine Automated 1.007 1.002 - 1.030 CERNER MILLENNIUM Color, Urine Dipstick Yellow Yellow CERNER MILLENNIUM RBC, Urine <1 0 - 4 /HPF CERNER MILLENNIUM WBC, Urine 1 0 - 5 /HPF CERNER MILLENNIUM Squamous Epithelial Cells, Urine 1 <=4 /HPF CERNER MILLENNIUM Hyaline Casts, Urine 1 0 - 2 /LPF CERNER MILLENNIUM Urine specimen (specimen) 04/02/2011 6:42 AM EST 04/02/2011 6:58 AM EST Geovanny Dalton III, MD URINE ORDERABLES CERNER MILLENNIUM * (ABNORMAL) DIFFERENTIAL, AUTOMATED (04/02/2011 3:04 AM EST) Neutrophil % 54.2 34.0 - 71.0 % CERNER MILLENNIUM Neutrophil Absolute 3.12 1.50 - 6.30 x10(3)/mc L CERNER MILLENNIUM Lymph % 24.7 19.0 - 53.0 % CERNER MILLENNIUM Lymphocytes Abs 1.4 1.0 - 3.6 x10(3)/mc L CERNER MILLENNIUM Monocyte % 17.4(H) 4.0 - 13.0 % CERNER MILLENNIUM Monocyte Abs 1.0 0.2 - 1.0 x10(3)/mc L CERNER MILLENNIUM Eos % 2.8 0.0 - 7.0 % CERNER MILLENNIUM Eosinophils Abs 0.2 0.0 - 0.5 x10(3)/mc L CERNER MILLENNIUM Basophil % 0.7 0.0 - 2.0 % CERNER MILLENNIUM Baso Absolute 0.0 0.0 - 0.2 x10(3)/mc L CERNER MILLENNIUM Immature Gran % 0.20 0.00 - 0.66 % CERNER MILLENNIUM Comment: Immature granulocytes(IG's)percentage and absolute count will include metamyelocytes, myelocytes, and promyelocytes. Blood smears from CBCs yielding IG's will be scanned manually for concordance. If this scan disagrees with the automated IG or if promyelocytes are noted, a manual differential will be performed. Immature Gran Absolute 0.01 0.00 - 0.05 x10(3)/mc L CERNER MILLENNIUM Blood specimen (specimen) 04/02/2011 3:04 AM EST 04/02/2011 3:48 AM EST Sreekanth Lucas MD HEMATOLOGY IDALIA LEES RASHAD BERGENNIUM * (ABNORMAL) BMP w/fasting Glucose (04/02/2011 3:04 AM EST) Glucose Fasting 82 65 - 99 mg/dL CERNER MILLENNIUM Comment: ?Fasting* Glucose Interpretive Criteria Normal ?65-99 mg/dL Impaired Fasting glucose ?100-125 mg/dL Consistent with Diabetes Mellitus ? >or= 126 mg/dL *Fasting is defined as no caloric intake for at least 8 hours In the absence of unequivocal hyperglycemia a plasma glucose value of >or= 126 mg/dL should be repeated on a subsequent day. Diagnosis and Classification of Diabetes Mellitus, Position Statement from the [place] [employer]. ??Diabetes Care, Volume 33, Supplement 1, May 2009 Blood Urea Nitrogen 2(L) 8 - 18 mg/dL CERNER MILLENNIUM Creatinine 0.40(L) 0.70 - 1.20 mg/dL CERNER MILLENNIUM Sodium 135 135 - 145 mmol/L CERNER MILLENNIUM Potassium 4.0 3.5 - 5.0 mmol/L CERNER MILLENNIUM Comment: Please note: ??Patients with WBC >100,000 may have falsely elevated Potassium levels. ??For accurate Potassium quantification in these patients send serum separator tube (gold top) for subsequent determinations. ??Contact the Clinical Chemistry Laboratory if there are any questions. Chloride 96(L) 98 - 107 mmol/L CERNER MILLENNIUM Carbon Dioxide 31 22 - 31 mmol/L CERNER MILLENNIUM Anion Gap 8 5 - 15 mmol/L CERNER MILLENNIUM Calcium 9.2 8.5 - 10.5 mg/dL CERNER MILLENNIUM Est Glomerular Filtration Rate >60 >=60 CERNER MILLENNIUM Comment: The National Kidney Disease Education Program (NKDEP) has recommended all laboratories report estimated GFR (eGFR) along with plasma creatinine measurements to assist you with recognition of early kidney disease. Caveats: ??Plasma creatinine should be at steady-state (unchanged within the past week). For patients multiply eGFR by 1.2.MDRD equation has not been validated for pediatric patients and is only valid for patients with age >= 18 years. At present, NKDEP does NOT recommend using the MDRD equation for drug dosing purposes and pharmacists should continue to use their current dosing methods. In addition, numerical eGFR values greater than 60 ml/min/1.73 square meters should be treated as > 60, and not an exact number due to greater inaccuracies at these higher values. Per NKDEP, they classify normal renal function as any GFR >60ml/min/1.73 square meters; chronic kidney disease when GFR <60, and renal failure when GFR <15. ??This calculation may not be valid for patients with atypical muscle mass (very lean or obese), acute renal failure, and in patients with diabetic kidney disease. References: http://nkdep.nih.gov/resources/NKDEP_Suggestn4Labs_0606_508.pdf http://www.kidney.org/professionals/kls/pdf/faq_gfr.pdf Blood specimen (specimen) 04/02/2011 3:04 AM EST 04/02/2011 3:48 AM EST Sreekanth Lucas MD CHEMISTRY ORDERAB LES RASHAD TIPTONIUM * (ABNORMAL) CBC (with Diff) (04/02/2011 3:04 AM EST) White Blood Cell 5.8 4.0 - 10.0 x10(3)/mc L CERNER MILLENNIUM Red Blood Cell 3.81(L) 3.93 - 5.22 x10(6)/mc L CERNER MILLENNIUM Hemoglobin 11.9 11.2 - 15.7 gm/dL CERNER MILLENNIUM Hematocrit 36.3 34.0 - 45.0 % CERNER MILLENNIUM Mean Cell Volume 95.3(H) 79.0 - 94.0 fL CERNER MILLENNIUM Mean Cell Hemoglobin 31.2 26.6 - 32.2 pg CERNER MILLENNIUM Mean Cell Hemoglobin Concentration 32.8 32.0 - 36.5 gm/dL CERNER MILLENNIUM Platelet 274 145 - 370 x10(3)/mc L CERNER MILLENNIUM RDW Standard Deviation 43.2 35.0 - 46.0 fL CERNER MILLENNIUM RDW coefficient of variation 12.6 10.9 - 14.4 % CERNER MILLENNIUM Mean Platelet Volume 9.8 9.0 - 12.0 fL CERNER MILLENNIUM Blood specimen (specimen) 04/02/2011 3:04 AM EST 04/02/2011 3:48 AM EST Sreekanth Lucas MD [facility]ATOLOGY [facility] * Duplex Study IVC/Iliac, Comp (04/01/2011 8:42 AM EST) VB Text Report Department: Vascular Surgery Lab Patient: [id number] ([facility]) CPT Code: 23321 ICD-9: 453.9 Referring Physician: Latesha LUCAS Indication: Patient with new question of SMV thrombus seen on MRCP yesterday, do not need arterial study, please evaluate SMV for clot ICD9 Diagnosis Code: 453.9 Interpretation: There is low velocity continuous flow by Doppler in the superior mesenteric vein in the mid abdomen with a question of non-occlusive thrombus because of incomplete color filling. 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 Consider alternative imaging study. No previous study from our lab for comparison. Notification: Dr. Lucas was informed of these preliminary findings. Signed by JACOB HARRISON on 2011-04-13 08:53:46 AM VASCUBASE VB Text Report End of Report VASCUBASE 04/01/2011 8:42 AM EST Sreekanth Lucas MD VASCULAR ORDERABL ES VASCUBASE * (ABNORMAL) DIFFERENTIAL, AUTOMATED (04/01/2011 4:00 AM EST) Neutrophil % 64.6 34.0 - 71.0 % CERNER MILLENNIUM Neutrophil Absolute 3.69 1.50 - 6.30 x10(3)/mc L CERNER MILLENNIUM Lymph % 15.0(L) 19.0 - 53.0 % CERNER MILLENNIUM Lymphocytes Abs 0.9(L) 1.0 - 3.6 x10(3)/mc L CERNER MILLENNIUM Monocyte % 17.8(H) 4.0 - 13.0 % CERNER MILLENNIUM Monocyte Abs 1.0 0.2 - 1.0 x10(3)/mc L CERNER MILLENNIUM Eos % 1.7 0.0 - 7.0 % CERNER MILLENNIUM Eosinophils Abs 0.1 0.0 - 0.5 x10(3)/mc L CERNER MILLENNIUM Basophil % 0.7 0.0 - 2.0 % CERNER MILLENNIUM Baso Absolute 0.0 0.0 - 0.2 x10(3)/mc L CERNER MILLENNIUM Immature Gran % 0.20 0.00 - 0.66 % CERNER MILLENNIUM Comment: Immature granulocytes(IG's)percentage and absolute count will include metamyelocytes, myelocytes, and promyelocytes. Blood smears from CBCs yielding IG's will be scanned manually for concordance. If this scan disagrees with the automated IG or if promyelocytes are noted, a manual differential will be performed. Immature Gran Absolute 0.01 0.00 - 0.05 x10(3)/mc L CERNER MILLENNIUM Blood specimen (specimen) 04/01/2011 4:00 AM EST 04/01/2011 4:17 AM EST Sreekanth Lucas MD HEMATOLOGY ORDERA BLES CERNER MILLENNIUM * Mitochondrial Antibody, M2 (04/01/2011 4:00 AM EST) Mitochon Ab (MAY) <0.1 <0.1 (Negative) U [facility] Comment: Test Performed by: [facility] D[facility] of Lab Med and Pathology [address] [place] [address] Computer Technology Trainer: Wyatt Slaughter III, M.D. Blood specimen (specimen) 04/01/2011 4:00 AM EST 04/01/2011 7:38 AM EST Sreekanth Lucas MD LAB SEND OUT RAUL STERN [facility] Organization Address City/State/ZIP Co de Phone Number RASHAD GARCIA * (ABNORMAL) BMP w/fasting Glucose (04/01/2011 4:00 AM EST) Glucose Fasting 95 65 - 99 mg/dL [facility] Comment: ?Fasting* Glucose Interpretive Criteria Normal ?65-99 mg/dL Impaired Fasting glucose ?100-125 mg/dL Consistent with Diabetes Mellitus ? >or= 126 mg/dL *Fasting is defined as no caloric intake for at least 8 hours In the absence of unequivocal hyperglycemia a plasma glucose value of >or= 126 mg/dL should be repeated on a subsequent day. Diagnosis and Classification of Diabetes Mellitus, Position Statement from the [place] [employer]. ??Diabetes Care, Volume 33, Supplement 1, May 2009 Blood Urea Nitrogen 4(L) 8 - 18 mg/dL CERNER MILLENNIUM Creatinine 0.35(L) 0.70 - 1.20 mg/dL CERNER MILLENNIUM Sodium 136 135 - 145 mmol/L CERNER MILLENNIUM Potassium 4.0 3.5 - 5.0 mmol/L CERNER MILLENNIUM Comment: Please note: ??Patients with WBC >100,000 may have falsely elevated Potassium levels. ??For accurate Potassium quantification in these patients send serum separator tube (gold top) for subsequent determinations. ??Contact the Clinical Chemistry Laboratory if there are any questions. Chloride 97(L) 98 - 107 mmol/L CERNER MILLENNIUM Carbon Dioxide 28 22 - 31 mmol/L CERNER MILLENNIUM Anion Gap 11 5 - 15 mmol/L CERNER MILLENNIUM Calcium 8.7 8.5 - 10.5 mg/dL CERNER MILLENNIUM Est Glomerular Filtration Rate >60 >=60 CERNER MILLENNIUM Comment: The National Kidney Disease Education Program (NKDEP) has recommended all laboratories report estimated GFR (eGFR) along with plasma creatinine measurements to assist you with recognition of early kidney disease. Caveats: ??Plasma creatinine should be at steady-state (unchanged within the past week). For patients multiply eGFR by 1.2.MDRD equation has not been validated for pediatric patients and is only valid for patients with age >= 18 years. At present, NKDEP does NOT recommend using the MDRD equation for drug dosing purposes and pharmacists should continue to use their current dosing methods. In addition, numerical eGFR values greater than 60 ml/min/1.73 square meters should be treated as > 60, and not an exact number due to greater inaccuracies at these higher values. Per NKDEP, they classify normal renal function as any GFR >60ml/min/1.73 square meters; chronic kidney disease when GFR <60, and renal failure when GFR <15. ??This calculation may not be valid for patients with atypical muscle mass (very lean or obese), acute renal failure, and in patients with diabetic kidney disease. References: http://nkdep.nih.gov/resources/NKDEP_Suggestn4Labs_0606_508.pdf http://www.kidney.org/professionals/kls/pdf/faq_gfr.pdf Blood specimen (specimen) 04/01/2011 4:00 AM EST 04/01/2011 4:17 AM EST Sreekanth Lucas MD [facility]Y [facility] * (ABNORMAL) CBC (with Diff) (04/01/2011 4:00 AM EST) White Blood Cell 5.7 4.0 - 10.0 x10(3)/mc L CERNER MILLENNIUM Red Blood Cell 3.71(L) 3.93 - 5.22 x10(6)/mc L CERNER MILLENNIUM Hemoglobin 11.8 11.2 - 15.7 gm/dL CERNER MILLENNIUM Hematocrit 35.4 34.0 - 45.0 % CERNER MILLENNIUM Mean Cell Volume 95.4(H) 79.0 - 94.0 fL CERNER MILLENNIUM Mean Cell Hemoglobin 31.8 26.6 - 32.2 pg CERNER MILLENNIUM Mean Cell Hemoglobin Concentration 33.3 32.0 - 36.5 gm/dL CERNER MILLENNIUM Platelet 246 145 - 370 x10(3)/mc L CERNER MILLENNIUM RDW Standard Deviation 43.6 35.0 - 46.0 fL CERNER MILLENNIUM RDW coefficient of variation 12.6 10.9 - 14.4 % CERNER MILLENNIUM Mean Platelet Volume 9.7 9.0 - 12.0 fL CERNER MILLENNIUM Blood specimen (specimen) 04/01/2011 4:00 AM EST 04/01/2011 4:17 AM EST Sreekanth Lucas MD HEMATOLOGY ORDERA [facility] CERNER MILLENNIUM * (ABNORMAL) DIFFERENTIAL, AUTOMATED (03/31/2011 3:55 AM EST) Pathologist [facility] Neutrophil % 54.2 34.0 - 71.0 % CERNER MILLENNIUM Neutrophil Absolute 3.24 1.50 - 6.30 x10(3)/mc L CERNER MILLENNIUM Lymph % 25.1 19.0 - 53.0 % CERNER MILLENNIUM Lymphocytes Abs 1.5 1.0 - 3.6 x10(3)/mc L CERNER MILLENNIUM Monocyte % 17.6(H) 4.0 - 13.0 % CERNER MILLENNIUM Monocyte Abs 1.1(H) 0.2 - 1.0 x10(3)/mc L CERNER MILLENNIUM Eos % 2.5 0.0 - 7.0 % CERNER MILLENNIUM Eosinophils Abs 0.2 0.0 - 0.5 x10(3)/mc L CERNER MILLENNIUM Basophil % 0.3 0.0 - 2.0 % CERNER MILLENNIUM Baso Absolute 0.0 0.0 - 0.2 x10(3)/mc L CERNER MILLENNIUM Immature Gran % 0.30 0.00 - 0.66 % CERNER MILLENNIUM Comment: Immature granulocytes(IG's)percentage and absolute count will include metamyelocytes, myelocytes, and promyelocytes. Blood smears from CBCs yielding IG's will be scanned manually for concordance. If this scan disagrees with the automated IG or if promyelocytes are noted, a manual differential will be performed. Immature Gran Absolute 0.02 0.00 - 0.05 x10(3)/mc L CERNER MILLENNIUM Blood specimen (specimen) 03/31/2011 3:55 AM EST 03/31/2011 4:32 AM EST Sreekanth Lucas MD [facility] * (ABNORMAL) BMP w/fasting Glucose (03/31/2011 3:55 AM EST) Glucose Fasting 83 65 - 99 mg/dL [facility] MILLENNIUM Comment: ?Fasting* Glucose Interpretive Criteria Normal ?65-99 mg/dL Impaired Fasting glucose ?100-125 mg/dL Consistent with Diabetes Mellitus ? >or= 126 mg/dL *Fasting is defined as no caloric intake for at least 8 hours In the absence of unequivocal hyperglycemia a plasma glucose value of >or= 126 mg/dL should be repeated on a subsequent day. Diagnosis and Classification of Diabetes Mellitus, Position Statement from the [place] [employer]. ??Diabetes Care, Volume 33, Supplement 1, May 2009 Blood Urea Nitrogen 6(L) 8 - 18 mg/dL [facility] Creatinine 0.33(L) 0.70 - 1.20 mg/dL CERNER MILLENNIUM Sodium 139 135 - 145 mmol/L CERNER MILLENNIUM Potassium 4.1 3.5 - 5.0 mmol/L CERNER MILLENNIUM Comment: Please note: ??Patients with WBC >100,000 may have falsely elevated Potassium levels. ??For accurate Potassium quantification in these patients send serum separator tube (gold top) for subsequent determinations. ??Contact the Clinical Chemistry Laboratory if there are any questions. Chloride 101 98 - 107 mmol/L CERNER MILLENNIUM Carbon Dioxide 26 22 - 31 mmol/L CERNER MILLENNIUM Anion Gap 12 5 - 15 mmol/L CERNER MILLENNIUM Calcium 8.8 8.5 - 10.5 mg/dL CERNER MILLENNIUM Est Glomerular Filtration Rate >60 >=60 CERNER MILLENNIUM Comment: The National Kidney Disease Education Program (NKDEP) has recommended all laboratories report estimated GFR (eGFR) along with plasma creatinine measurements to assist you with recognition of early kidney disease. Caveats: ??Plasma creatinine should be at steady-state (unchanged within the past week). For patients multiply eGFR by 1.2.MDRD equation has not been validated for pediatric patients and is only valid for patients with age >= 18 years. At present, NKDEP does NOT recommend using the MDRD equation for drug dosing purposes and pharmacists should continue to use their current dosing methods. In addition, numerical eGFR values greater than 60 ml/min/1.73 square meters should be treated as > 60, and not an exact number due to greater inaccuracies at these higher values. Per NKDEP, they classify normal renal function as any GFR >60ml/min/1.73 square meters; chronic kidney disease when GFR <60, and renal failure when GFR <15. ??This calculation may not be valid for patients with atypical muscle mass (very lean or obese), acute renal failure, and in patients with diabetic kidney disease. References: http://nkdep.nih.gov/resources/NKDEP_Suggestn4Labs_0606_508.pdf http://www.kidney.org/professionals/kls/pdf/faq_gfr.pdf Blood specimen (specimen) 03/31/2011 3:55 AM EST 03/31/2011 4:32 AM EST Sreekanth Lucas MD CHEMISTRY ORDERAB LES CERNER MILLENNIUM * (ABNORMAL) CBC (with Diff) (03/31/2011 3:55 AM EST) White Blood Cell 6.0 4.0 - 10.0 x10(3)/mc L CERNER MILLENNIUM Red Blood Cell 3.64(L) 3.93 - 5.22 x10(6)/mc L CERNER MILLENNIUM Hemoglobin 11.4 11.2 - 15.7 gm/dL CERNER MILLENNIUM Hematocrit 34.9 34.0 - 45.0 % CERNER MILLENNIUM Mean Cell Volume 95.9(H) 79.0 - 94.0 fL CERNER MILLENNIUM Mean Cell Hemoglobin 31.3 26.6 - 32.2 pg CERNER MILLENNIUM Mean Cell Hemoglobin Concentration 32.7 32.0 - 36.5 gm/dL CERNER MILLENNIUM Platelet 229 145 - 370 x10(3)/mc L CERNER MILLENNIUM RDW Standard Deviation 43.3 35.0 - 46.0 fL CERNER MILLENNIUM RDW coefficient of variation 12.4 10.9 - 14.4 % CERNER MILLENNIUM Mean Platelet Volume 9.9 9.0 - 12.0 fL CERNER MILLENNIUM Blood specimen (specimen) 03/31/2011 3:55 AM EST 03/31/2011 4:32 AM EST Sreekanth Lucas MD HEMATOLOGY ORDERA BLES CERNER MILLENNIUM * (ABNORMAL) Hepatic Function Panel (03/31/2011 3:55 AM EST) Protein, Total 6.4 6.4 - 8.3 gm/dL CERNER MILLENNIUM Albumin 3.1(L) 3.2 - 5.2 gm/dL CERNER MILLENNIUM Aspartate Aminotransferase 26 0 - 30 unit/L CERNER MILLENNIUM Alanine Aminotransferase 44(H) 0 - 30 unit/L CERNER MILLENNIUM Alkaline Phosphatase 192(H) 40 - 104 unit/L CERNER MILLENNIUM Bilirubin, Total 0.4 0.2 - 1.3 mg/dL CERNER MILLENNIUM Bilirubin, Direct 0.1 0.0 - 0.3 mg/dL CERNER MILLENNIUM Blood specimen (specimen) 03/31/2011 3:55 AM EST 03/31/2011 4:32 AM EST Sreekanth Lucas MD CHEMISTRY ORDERAB LES RASHAD BERGENNIUM * MRI cholangiopancreatography (03/30/2011 11:35 PM EST) Anatomical Region Laterality Modality Magnetic Resonan ce 03/30/2011 11:3 5 PM EST Impressions 03/31/2011 4:19 PM EST IMPRESSION: 1. No evidence of choledocholithiasis. 2. Loss of normal flow void throughout the portal vein and its branches suggestive of portal venous thrombosis. Additionally, the SMV appears expanded also raising the possibility of intraluminal thrombus. Ultrasound is recommended for further evaluation of portal venous flow. Findings discussed with Dr. Lucas. Film and interpretation reviewed by the attending Narrative 03/31/2011 4:19 PM EST MR CHOLANGIOPANCREATOGRAPHY WITHOUT CONTRAST: HISTORY: ??Pancreatitis with concern for choledocholithiasis status post cholecystectomy. COMPARISON: ??CT of the abdomen and pelvis performed 03/28/11. TECHNIQUE: ??MRCP was performed with standard protocol without the administration of intravenous contrast. 3D postprocessing was performed at a separate workstation to aid in interpretation. FINDINGS: ??The liver is not enlarged. The liver contour is smooth. There is intermediate signal intensity throughout the portal vein with loss of the normal T2 flow void. These findings are suspicious for portal venous thrombosis involving the main portal vein and extending into its right and left branches. Additionally, though there is abnormal signal in the superior mesenteric vein, and it is expanded also raising the possibility of intraluminal thrombus. 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 The CBD is dilated, 1.3 cm in short axis. There is no evidence of choledocholithiasis. The CBC appears to taper unremarkably as it enters the duodenum. The pancreatic duct is normal in size. There is no intrahepatic biliary ductal dilatation. Postoperative changes status post cholecystectomy are noted. There is a minimal amount of fluid in the gallbladder fossa. The pancreas appears minimally bulky at the head/body junction. There is a minimal amount of peripancreatic inflammatory change, which extends inferiorly into the root of the small bowel mesentery, along the course of the SMV. No pathologically enlarged upper abdominal lymph nodes are identified. The kidneys are normal in size and position without evidence of hydronephrosis. A subcentimeter cyst is identified in the upper pole of the right kidney. The signal emanating from bone marrow is unremarkable. There is a minimal amount of perihepatic ascites, extending into the right lower abdomen. The spleen is not enlarged. Procedure Note Valentina Vega MD - 03/31/2011 MR CHOLANGIOPANCREATOGRAPHY WITHOUT CONTRAST: HISTORY: Pancreatitis with concern for choledocholithiasis status post cholecystectomy. COMPARISON: CT of the abdomen and pelvis performed 03/28/11. TECHNIQUE: MRCP was performed with standard protocol without the administration of intravenous contrast. 3D postprocessing was performed chalo separate workstation to aid in interpretation. FINDINGS: The liver is not enlarged. The liver contour is smooth. Thereis intermediate signal intensity throughout the portal vein with loss of the normal T2 flow void. These findings are suspicious for portal venousthrombosis involving the main portal vein and extending into its right and leftbranches. 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 The CBD is dilated, 1.3 cm in short axis. There is no evidence of choledocholithiasis. The CBC appears to taper unremarkably as it entersthe duodenum. The pancreatic duct is normal in size. There is no intrahepatic biliary ductal dilatation. Postoperative changes status post cholecystectomy are noted. There is aminimal amount of fluid in the gallbladder fossa. The pancreas appears minimally bulky at the head/body junction. There is a minimal amount of peripancreatic inflammatory change, which extendsinferiorly into the root of the small bowel mesentery, along the course of the SMV. No pathologically enlarged upper abdominal lymph nodes are identified. The kidneys are normal in size and position without evidence ofhydronephrosis. A subcentimeter cyst is identified in the upper pole of the right kidney. The signal emanating from bone marrow is unremarkable. There is a minimal amount of perihepatic ascites, extending into the right lower abdomen. The spleen is not enlarged. IMPRESSION IMPRESSION: 1. No evidence of choledocholithiasis. 2. Loss of normal flow void throughout the portal vein and its branches suggestive of portal venous thrombosis. Additionally, the SMV appearsexpanded also raising the possibility of intraluminal thrombus. Ultrasound is recommended for further evaluation of portal venous flow. Findings discussed with Dr. Lucas. Film and interpretation reviewed by the attending Sreekanth Lucas MD IMG MRI ORDERABLE S * US abdomen limited (03/30/2011 10:47 AM EST) Anatomical Region Laterality Modality Abdomen Ultrasound 03/30/2011 10:4 7 AM EST Narrative 03/30/2011 11:08 AM EST ?Abdominal Report ? (Signed Final 03/30/2011 11:07 am) Patient Info ID: ? [id number] ? : ??50 (60 yrs) Name: ? VLADIMIR Nguyen SALEM ? Visit Date: 03/30/2011 10:43 am Performed By Performed By: ?Carly Webster [facility] Associate: ? Misbah COLON, Rene Ponce Attending: ? Jacob Abreu MD Referred By: ? JOJO Trejo MD Accession#: ?[id number] Service(s) Provided UABDLIM - Abdominal Limited Survey Single ? [id number] Organ or Quadrant - [id number] Indications 60F with recent appy/right hemicolectomy. admitted with acute pancreatitis of unclear etiology. S/p Dede but dilated CBD. ??? retained stones ----- Liver ----- Right Lobe Length: ?? 13.28 ??cm Echogenicity/Echotexture: ?? Hypoechoic Comment: ?Hypoechoic liver parenchyma with hyperechoic ? appeaerance to the portal triads. ??No focal hepatic ? mass lesion. Gallbladder Cholelithiasis: ?Surgically removed Biliary Tract Intrahepatic Ducts: ?? Normal Extrahepatic Ducts: ?? Normal Common Duct Size: ? 13.5 ?mm Comment: ?Dilated Extrahepatic biliary ducts, similr to recent ? CT scan. ??Post cholecystectomy. -------- Pancreas -------- Head: ? Enlarged and increased in echogenicity Tail: ? Poorly visualized due to overlying bowel Body: ? Enlarged and increased in echogenicity Comment: ?The visualized pancrease is enlarged and ? incraesed in echogenicity with poorly defined ? borders. Right Kidney Size (cm) ?L: ??12.51 Cortical Thickness: ?Normal Cortical Echogenicity: ?? Normal Hydronephrosis: ?No sonographic evidence Comment: ?Can not visualized know renal cyst. Impression Ultrasound - Abdomen Limited - Summary 1. ??No evidence of choledocholithiasis. 2. ??Enlarged CBD, 13mm, post cholecystectomy. 3. ??Enlarged and echogenic pancreas consistent with patients known pancreatitis. I ??viewed the images and agree with the above interpretation. Thank you for allowing us to participate in the care of VLADIMIR JONES. Please do not hesitate to call if you have any questions. ?Jacob Abreu MD Electronically Signed Final Report ?? 03/30/2011 11:07 am Film and interpretation reviewed by the attending Procedure Note Jacob Abreu MD - 03/30/2011 Abdominal Report (Signed Final 03/30/2011 11:07 am) Patient Info ID: [id number] : 50 (60 yrs) Name: VLADIMIR JONES Visit Date: 03/30/2011 10:43 am Performed By Performed By: Carly Webster [facility] Associate: Rene Crawley MD Attending: Jacob Abreu MD Referred By: JOJO Trejo MD Service(s) Provided UABDLIM - Abdominal Limited Survey Single 09255 Organ or Quadrant - [id number] Indications 60F with recent appy/right hemicolectomy. admitted with acute pancreatitis of unclear etiology. S/p Dede but dilated CBD. ? retained stones ----- Liver ----- Right Lobe Length: 13.28 cm Echogenicity/Echotexture: Hypoechoic Comment: Hypoechoic liver parenchyma with hyperechoic appeaerance to the portal triads. No focal hepatic mass lesion. Gallbladder Cholelithiasis: Surgically removed Biliary Tract Intrahepatic Ducts: Normal Extrahepatic Ducts: Normal Common Duct Size: 13.5 mm Comment: Dilated Extrahepatic biliary ducts, similr to recent CT scan. Post cholecystectomy. -------- Pancreas -------- Head: Enlarged and increased in echogenicity Tail: Poorly visualized due to overlying bowel Body: Enlarged and increased in echogenicity Comment: The visualized pancrease is enlarged and incraesed in echogenicity with poorly defined borders. Right Kidney Size (cm) L: 12.51 Cortical Thickness: Normal Cortical Echogenicity: Normal Hydronephrosis: No sonographic evidence Comment: Can not visualized know renal cyst. Impression Ultrasound - Abdomen Limited - Summary 1. No evidence of choledocholithiasis. 2. Enlarged CBD, 13mm, post cholecystectomy. 3. Enlarged and echogenic pancreas consistent with patients known pancreatitis. I viewed the images and agree with the above interpretation. Thank you for allowing us to participate in the care of VLADIMIR JONES. Please do not hesitate to call if you have any questions. Jacob Abreu MD Electronically Signed Final Report 03/30/2011 11:07 am Film and interpretation reviewed by the attending Sreekanth Lucas MD IMG US GEN ORDERA BLES * (ABNORMAL) DIFFERENTIAL, AUTOMATED (03/30/2011 3:38 AM EST) Neutrophil % 55.3 34.0 - 71.0 % CERNER MILLENNIUM Neutrophil Absolute 3.26 1.50 - 6.30 x10(3)/mc L CERNER MILLENNIUM Lymph % 21.5 19.0 - 53.0 % CERNER MILLENNIUM Lymphocytes Abs 1.3 1.0 - 3.6 x10(3)/mc L CERNER MILLENNIUM Monocyte % 19.0(H) 4.0 - 13.0 % CERNER MILLENNIUM Monocyte Abs 1.1(H) 0.2 - 1.0 x10(3)/mc L CERNER MILLENNIUM Eos % 3.7 0.0 - 7.0 % CERNER MILLENNIUM Eosinophils Abs 0.2 0.0 - 0.5 x10(3)/mc L CERNER MILLENNIUM Basophil % 0.3 0.0 - 2.0 % CERNER MILLENNIUM Baso Absolute 0.0 0.0 - 0.2 x10(3)/mc L CERNER MILLENNIUM Immature Gran % 0.20 0.00 - 0.66 % CERNER MILLENNIUM Comment: Immature granulocytes(IG's)percentage and absolute count will include metamyelocytes, myelocytes, and promyelocytes. Blood smears from CBCs yielding IG's will be scanned manually for concordance. If this scan disagrees with the automated IG or if promyelocytes are noted, a manual differential will be performed. Immature Gran Absolute 0.01 0.00 - 0.05 x10(3)/mc L CERNER MILLENNIUM Blood specimen (specimen) 03/30/2011 3:38 AM EST 03/30/2011 4:00 AM EST Sreekanth Lucas MD HEMATOLOGY ORDER[facility] R[facility] TIPTONIUM * (ABNORMAL) CBC (with Diff) (03/30/2011 3:38 AM EST) White Blood Cell 5.9 4.0 - 10.0 x10(3)/mc L CERNER MILLENNIUM Red Blood Cell 3.51(L) 3.93 - 5.22 x10(6)/mc L CERNER MILLENNIUM Hemoglobin 11.6 11.2 - 15.7 gm/dL CERNER MILLENNIUM Hematocrit 34.2 34.0 - 45.0 % CERNER MILLENNIUM Mean Cell Volume 97.4(H) 79.0 - 94.0 fL CERNER MILLENNIUM Mean Cell Hemoglobin 33.0(H) 26.6 - 32.2 pg CERNER MILLENNIUM Mean Cell Hemoglobin Concentration 33.9 32.0 - 36.5 gm/dL CERNER MILLENNIUM Platelet 193 145 - 370 x10(3)/mc L CERNER MILLENNIUM RDW Standard Deviation 45.2 35.0 - 46.0 fL CERNER MILLENNIUM RDW coefficient of variation 12.8 10.9 - 14.4 % CERNER MILLENNIUM Mean Platelet Volume 9.9 9.0 - 12.0 fL CERNER MILLENNIUM Blood specimen (specimen) 03/30/2011 3:38 AM EST 03/30/2011 4:00 AM EST Sreekanth Lucas MD HEMATOLOGY ORDERA BLES CERNER MILLENNIUM * (ABNORMAL) DIFFERENTIAL, AUTOMATED (03/29/2011 4:04 AM EST) Neutrophil % 61.6 34.0 - 71.0 % CERNER MILLENNIUM Neutrophil Absolute 4.18 1.50 - 6.30 x10(3)/mc L CERNER MILLENNIUM Lymph % 18.7(L) 19.0 - 53.0 % CERNER MILLENNIUM Lymphocytes Abs 1.3 1.0 - 3.6 x10(3)/mc L CERNER MILLENNIUM Monocyte % 17.2(H) 4.0 - 13.0 % CERNER MILLENNIUM Monocyte Abs 1.2(H) 0.2 - 1.0 x10(3)/mc L CERNER MILLENNIUM Eos % 2.1 0.0 - 7.0 % CERNER MILLENNIUM Eosinophils Abs 0.1 0.0 - 0.5 x10(3)/mc L CERNER MILLENNIUM Basophil % 0.3 0.0 - 2.0 % CERNER MILLENNIUM Baso Absolute 0.0 0.0 - 0.2 x10(3)/mc L CERNER MILLENNIUM Immature Gran % 0.10 0.00 - 0.66 % CERNER MILLENNIUM Comment: Immature granulocytes(IG's)percentage and absolute count will include metamyelocytes, myelocytes, and promyelocytes. Blood smears from CBCs yielding IG's will be scanned manually for concordance. If this scan disagrees with the automated IG or if promyelocytes are noted, a manual differential will be performed. Immature Gran Absolute 0.01 0.00 - 0.05 x10(3)/mc L CERNER MILLENNIUM Blood specimen (specimen) 03/29/2011 4:04 AM EST 03/29/2011 4:17 AM EST Sreekanth Lucas MD HEMATOLOGY ORDERA BLES Performing Organization Address City/[facility]/ZIP Co de Phone Number CERNER MILLENNIUM * (ABNORMAL) CBC (with Diff) (03/29/2011 4:04 AM EST) White Blood Cell 6.8 4.0 - 10.0 x10(3)/mc L CERNER MILLENNIUM Red Blood Cell 3.61(L) 3.93 - 5.22 x10(6)/mc L CERNER MILLENNIUM Hemoglobin 11.5 11.2 - 15.7 gm/dL CERNER MILLENNIUM Hematocrit 34.7 34.0 - 45.0 % CERNER MILLENNIUM Mean Cell Volume 96.1(H) 79.0 - 94.0 fL CERNER MILLENNIUM Mean Cell Hemoglobin 31.9 26.6 - 32.2 pg CERNER MILLENNIUM Mean Cell Hemoglobin Concentration 33.1 32.0 - 36.5 gm/dL CERNER MILLENNIUM Platelet 194 145 - 370 x10(3)/mc L CERNER MILLENNIUM RDW Standard Deviation 44.5 35.0 - 46.0 fL CERNER MILLENNIUM RDW coefficient of variation 12.7 10.9 - 14.4 % CERNER MILLENNIUM Mean Platelet Volume 9.6 9.0 - 12.0 fL CERNER MILLENNIUM Blood specimen (specimen) 03/29/2011 4:04 AM EST 03/29/2011 4:17 AM EST Sreekanth Lucas MD HEMATOLOGY ORDERA BLES CERNER MILLENNIUM * (ABNORMAL) CMP w/fasting Glucose (03/29/2011 4:04 AM EST) [facility] Glucose Fasting 76 65 - 99 mg/dL CERNER MILLENNIUM Comment: ?Fasting* Glucose Interpretive Criteria Normal ?65-99 mg/dL Impaired Fasting glucose ?100-125 mg/dL Consistent with Diabetes Mellitus ? >or= 126 mg/dL *Fasting is defined as no caloric intake for at least 8 hours In the absence of unequivocal hyperglycemia a plasma glucose value of >or= 126 mg/dL should be repeated on a subsequent day. Diagnosis and Classification of Diabetes Mellitus, Position Statement from the [place] [employer]. ??Diabetes Care, Volume 33, Supplement 1, May 2009 Blood Urea Nitrogen 7(L) 8 - 18 mg/dL CERNER MILLENNIUM Creatinine 0.44(L) 0.70 - 1.20 mg/dL CERNER MILLENNIUM Sodium 135 135 - 145 mmol/L CERNER MILLENNIUM Potassium 4.3 3.5 - 5.0 mmol/L CERNER MILLENNIUM Comment: Please note: ??Patients with WBC >100,000 may have falsely elevated Potassium levels. ??For accurate Potassium quantification in these patients send serum separator tube (gold top) for subsequent determinations. ??Contact the Clinical Chemistry Laboratory if there are any questions. Chloride 101 98 - 107 mmol/L CERNER MILLENNIUM Carbon Dioxide 29 22 - 31 mmol/L CERNER MILLENNIUM Anion Gap 5 5 - 15 mmol/L CERNER MILLENNIUM Calcium 9.1 8.5 - 10.5 mg/dL CERNER MILLENNIUM Protein, Total 6.1(L) 6.4 - 8.3 gm/dL CERNER MILLENNIUM Albumin 3.3 3.2 - 5.2 gm/dL CERNER MILLENNIUM Aspartate Aminotransferase 20 0 - 30 unit/L CERNER MILLENNIUM Alanine Aminotransferase 48(H) 0 - 30 unit/L CERNER MILLENNIUM Alkaline Phosphatase 199(H) 40 - 104 unit/L CERNER MILLENNIUM Bilirubin, Total 0.6 0.2 - 1.3 mg/dL CERNER MILLENNIUM Bilirubin, Direct 0.2 0.0 - 0.3 mg/dL CERNER MILLENNIUM Est Glomerular Filtration Rate >60 >=60 [facility] Comment: The National Kidney Disease Education Program (NKDEP) has recommended all laboratories report estimated GFR (eGFR) along with plasma creatinine measurements to assist you with recognition of early kidney disease. Caveats: ??Plasma creatinine should be at steady-state (unchanged within the past week). For patients multiply eGFR by 1.2.MDRD equation has not been validated for pediatric patients and is only valid for patients with age >= 18 years. At present, NKDEP does NOT recommend using the MDRD equation for drug dosing purposes and pharmacists should continue to use their current dosing methods. In addition, numerical eGFR values greater than 60 ml/min/1.73 square meters should be treated as > 60, and not an exact number due to greater inaccuracies at these higher values. Per NKDEP, they classify normal renal function as any GFR >60ml/min/1.73 square meters; chronic kidney disease when GFR <60, and renal failure when GFR <15. ??This calculation may not be valid for patients with atypical muscle mass (very lean or obese), acute renal failure, and in patients with diabetic kidney disease. References: http://nkdep.nih.gov/resources/NKDEP_Suggestn4Labs_0606_508.pdf http://www.kidney.org/professionals/kls/pdf/faq_gfr.pdf Blood specimen (specimen) 03/29/2011 4:04 AM EST 03/29/2011 4:17 AM EST Sreekanth Lucas MD CHEMISTRY ORDERAB LES RASHAD GARCIA * Triglyceride (03/29/2011 4:04 AM EST) Triglyceride 59 <=149 mg/dL [facility] Comment: Reference Range: Normal triglycerides: ??<150 mg/dL Borderline high: ??150-199 mg/dL High: ??200-499 mg/dL Very high: ??>ib=352 mg/dL YESICA 2001; 285(99):[id number] Blood specimen (specimen) 03/29/2011 4:04 AM EST 03/29/2011 4:17 AM EST Sreekanth Lucas MD CHEMISTRY ORDERAB LES [facility] * (ABNORMAL) Gamma GT (03/29/2011 4:04 AM EST) Gamma Glutamyl Transferase 138(H) 5 - 36 unit/L CERDAVID TIPTONIUM Blood specimen (specimen) 03/29/2011 4:04 AM EST 03/29/2011 4:17 AM EST Sreekanth Lucas MD CHEMISTRY ORDERAB LES Performing Organization Address City/[facility]/ZIP Co de Phone Number [facility] * CT ABDOMEN & PELVIS WITH CONTRAST (03/28/2011 4:54 AM EST) Anatomical Region Laterality Modality Abdomen, Pelvis Computed Tomogra phy 03/28/2011 4:54 AM EST Addenda Addendum on 03/31/2011 2:38 PM EST Addendum Begins On the coronal images (series #300) there is a transition in the opacification of the distal superior mesenteric vein with poor opacification of the portal vein. ??A thrombus cannot completely be excluded although this may be mixing artifact. The patient's clinicians were notified of these possibilities at the time of this addendum. Addendum Ends Addendum on 03/31/2011 1:47 PM EST Addendum Begins The coronal images (series #300) there is a transition in the opacification of the distal superior mesenteric vein with poor opacification of the portal vein. ?? A thrombus cannot completely be excluded. ??The patient's clinicians were notified of these possibilities at the time of this addendum. ?? Addendum Ends Impressions 03/28/2011 3:51 PM EST IMPRESSION: ?? 1. Findings concerning for possible acute pancreatitis. ?? 2. No free air or free fluid. ?? 3. Status post cholecystectomy. ?? 4. Unremarkable small bowel/colon anastomosis. ?? Film and interpretation reviewed by the attending Narrative 03/28/2011 3:[address] ABDOMEN AND PELVIS WITH CONTRAST, MARCH 28, 2011: HISTORY: ??Abdominal pain. ?? COMPARISON: ??Abdominal radiographs, March 27, 2011. ?? TECHNIQUE: ??Axial CT images of the abdomen and pelvis with contrast. A total of 110 cc of Omnipaque-350 was intravenously administered. ?? FINDINGS: ??Limited view of the lung bases is unremarkable. Peripancreatic fat stranding is present concerning for acute pancreatitis. There is no evidence of pancreatic ductal dilatation. There is fatty atrophy of the pancreas diffusely. Two surgical clips are present in the right upper quadrant with presumed resection of the gallbladder. Adjacent to the surgical clips, the common bile duct appears dilated at approximately 15 mm, which tapers down at the level of the duodenum. This finding can reflect an expected postoperative change. However, cannot exclude the possibility of obstructing lesion within the duct. ?? The liver, adrenals, and kidneys are grossly normal with a tiny subcentimeter hypodensity within the mid pole of the right kidney too small to characterize. No collecting system dilatation of the bilateral kidneys. Evaluation of the abdominal aorta and its associated vessels demonstrates calcified atherosclerotic disease. ?? Evaluation of the bowel demonstrates a small bowel/colon anastomosis staple line abutting the anterior abdominal wall. No evidence of bowel dilatation or transition points. The anterior abdominal wall just right of midline has an abnormal cluster of air just deep to the skin (see series #2, image #[id number]). No free fluid or free air. ?? Evaluation of the osseous structures are unremarkable. ?? Procedure Note Mikael Lewis MD - 03/31/2011 CT ABDOMEN AND PELVIS WITH CONTRAST, MARCH 28, 2011: HISTORY: Abdominal pain. COMPARISON: Abdominal radiographs, March 27, 2011. TECHNIQUE: Axial CT images of the abdomen and pelvis with contrast. Atotal of 110 cc of Omnipaque-350 was intravenously administered. FINDINGS: Limited view of the lung bases is unremarkable. Peripancreaticfat stranding is present concerning for acute pancreatitis. There is noevidence of pancreatic ductal dilatation. There is fatty atrophy of the pancreasdiffusely. Two surgical clips are present in the right upper quadrant with presumed resection of the gallbladder. Adjacent to the surgical clips, the commonbile duct appears dilated at approximately 15 mm, which tapers down at thelevel of the duodenum. This finding can reflect an expected postoperative change. However, cannot exclude the possibility of obstructing lesion within theduct. The liver, adrenals, and kidneys are grossly normal with a tinysubcentimeter hypodensity within the mid pole of the right kidney too small tocharacterize. No collecting system dilatation of the bilateral kidneys. Evaluation ofthe abdominal aorta and its associated vessels demonstrates calcified atherosclerotic disease. Evaluation of the bowel demonstrates a small bowel/colon anastomosisstaple line abutting the anterior abdominal wall. No evidence of bowel dilatationor transition points. The anterior abdominal wall just right of midline hasan abnormal cluster of air just deep to the skin (see series #2, image#[id number]). No free fluid or free air. Evaluation of the osseous structures are unremarkable. IMPRESSION IMPRESSION: 1. Findings concerning for possible acute pancreatitis. 2. No free air or free fluid. 3. Status post cholecystectomy. 4. Unremarkable small bowel/colon anastomosis. Film and interpretation reviewed by the attending Silas Llanes MD IMG CT ORDERABLES * POCT urine dipstick (03/27/2011 10:01 PM EST) POC Sp [place] 1.010 1.002 - 1.030 POC pH, UA 8 5.0 - 8.5 POC Leuk, UA neg Negative - Negative POC Nitrite, UA neg Negative - Negative POC Protein, UA neg Negative - Negative mg/dL POC Glucose, UA neg Normal - Normal mg/dL POC Ketone, UA neg Negative - Negative POC Urobil, UA ++ 0.2 - 1.0 mg/dL POC Bili, UA ++ Negative - Negative POC Blood, UA neg Negative - Negative karishma/uL Silas Llanes MD POINT OF CARE TEST O RDERABLES * XR ABDOMEN ACUTE SERIES WITH PA CHEST (03/27/2011 9:50 PM EST) Anatomical Region Laterality Modality Abdomen, Chest N/A Radiographic Richa ging 03/27/2011 9:50 PM EST Narrative 03/28/2011 3:51 PM EST ACUTE ABDOMINAL SERIES WITH PA CHEST, MARCH 27, 2011: ?? HISTORY: ??Pain. Rule out obstruction. ?? TECHNIQUE: ??PA chest. AP upright and supine views of the abdomen. ?? FINDINGS: CHEST: ??The lungs are clear. No effusion or pneumothorax. The cardiomediastinal silhouette is borderline enlarged. ?? ABDOMEN: ??No free air. There is a paucity of small gas within the small bowel limiting the evaluation for small bowel obstruction. A single air-fluid level is present in the left upper quadrant of the abdomen. There is air present projecting at the level of the rectosigmoid colon. Overall, this bowel gas pattern is nonspecific. ?? Surgical clips are present in the right upper quadrant. ?? Film and interpretation reviewed by the attending Procedure Note Mikael Lewis MD - 03/28/2011 ACUTE ABDOMINAL SERIES WITH PA CHEST, MARCH 27, 2011: HISTORY: Pain. Rule out obstruction. TECHNIQUE: PA chest. AP upright and supine views of the abdomen. FINDINGS: CHEST: The lungs are clear. No effusion or pneumothorax. Thecardiomediastinal silhouette is borderline enlarged. ABDOMEN: No free air. There is a paucity of small gas within the smallbowel limiting the evaluation for small bowel obstruction. A single air-fluidlevel is present in the left upper quadrant of the abdomen. There is air present projecting at the level of the rectosigmoid colon. Overall, this bowel gas pattern is nonspecific. Surgical clips are present in the right upper quadrant. Film and interpretation reviewed by the attending Silas Llanes MD IMG DX ORDERABLES * NUCLEATED RED BLOOD CELLS (03/27/2011 9:25 PM EST) NRBC% auto 0.0 0.0 - 0.2 % ENDOGENXIUM NRBC Absolute 0.000 0.000 - 0.012 x10(3)/mcL [employer] Blood specimen (specimen) 03/27/2011 9:25 PM EST 03/27/2011 9:28 PM EST Silas Llanes MD HEMATOLOGY ORDERABLE S [facility] [employer] * SCAN, PERIPHERAL BLOOD (03/27/2011 9:25 PM EST) Plat estimate Normal CERNER MILLENNIUM RBC Morphology Abnormal CERNE R MILLENNIUM Ovalocytes 1-5 /HPF CERNER MILLENNIUM [place] Cells 1-5 /HPF CERNER MILLENNIUM Blood specimen (specimen) 03/27/2011 9:25 PM EST 03/27/2011 9:28 PM EST Silas Llanes MD HEMATOLOGY ORDERABLE S CERNER MILLENNIUM * (ABNORMAL) DIFFERENTIAL, AUTOMATED (03/27/2011 9:25 PM EST) Neutrophil % 66.4 34.0 - 71.0 % CERNER MILLENNIUM Neutrophil Absolute 6.89(H) 1.50 - 6.30 x10(3)/mc L CERNER MILLENNIUM Lymph % 15.2(L) 19.0 - 53.0 % CERNER MILLENNIUM Lymphocytes Abs 1.6 1.0 - 3.6 x10(3)/mc L CERNER MILLENNIUM Monocyte % 16.4(H) 4.0 - 13.0 % CERNER MILLENNIUM Monocyte Abs 1.7(H) 0.2 - 1.0 x10(3)/mc L CERNER MILLENNIUM Eos % 1.3 0.0 - 7.0 % CERNER MILLENNIUM Eosinophils Abs 0.1 0.0 - 0.5 x10(3)/mc L CERNER MILLENNIUM Basophil % 0.4 0.0 - 2.0 % CERNER MILLENNIUM Baso Absolute 0.0 0.0 - 0.2 x10(3)/mc L CERNER MILLENNIUM Immature Gran % 0.30 0.00 - 0.66 % CERNER MILLENNIUM Comment: Immature granulocytes(IG's)percentage and absolute count will include metamyelocytes, myelocytes, and promyelocytes. Blood smears from CBCs yielding IG's will be scanned manually for concordance. If this scan disagrees with the automated IG or if promyelocytes are noted, a manual differential will be performed. Immature Gran Absolute 0.03 0.00 - 0.05 x10(3)/mc L CERNER MILLENNIUM Blood specimen (specimen) 03/27/2011 9:25 PM EST 03/27/2011 9:28 PM EST Silas Llanes MD HEMATOLOGY ORDERABLE S Performing Organization Address [facility]/ZIP Co de Phone Number CERDAVID BERGENNIUM * LIPASE (03/27/2011 9:25 PM EST) Lipase 17 0 - 60 unit/L CERNER MILLENNIUM Blood specimen (specimen) 03/27/2011 9:25 PM EST 03/27/2011 9:28 PM EST Silas Llanes MD CHEMISTRY ORDERABLES Performing Organization Address [facility] Phone Number CERNER MILLENNIUM * (ABNORMAL) HEPATIC FUNCTION PANEL (03/27/2011 9:25 PM EST) Protein, Total 6.8 6.4 - 8.3 gm/dL CERNER MILLENNIUM Albumin 3.9 3.2 - 5.2 gm/dL CERNER MILLENNIUM Aspartate Aminotransferase 35(H) 0 - 30 unit/L CERNER MILLENNIUM Alanine Aminotransferase 80(H) 0 - 30 unit/L CERNER MILLENNIUM Alkaline Phosphatase 215(H) 40 - 104 unit/L CERNER MILLENNIUM Bilirubin, Total 0.8 0.2 - 1.3 mg/dL CERNER MILLENNIUM Bilirubin, Direct 0.3 0.0 - 0.3 mg/dL CERNER MILLENNIUM Blood specimen (specimen) 03/27/2011 9:25 PM EST 03/27/2011 9:28 PM EST Silas Llanes MD CHEMISTRY ORDERABLES Performing Organization Address City/[facility]/ZIP Co de Phone Number CERDAVID BERGENNIUM * Glucose, random (03/27/2011 9:25 PM EST) Glucose 94 60 - 199 mg/dL CERNER MILLENNIUM Comment:Diabetes: >=200 mg/d L plus symptoms Blood specimen (specimen) 03/27/2011 9:25 PM EST 03/27/2011 9:28 PM EST Silas Llanes MD CHEMISTRY ORDERABLES RASHAD GARCIA * (ABNORMAL) Creatinine, serum (03/27/2011 9:25 PM EST) Creatinine 0.55(L) 0.70 - 1.20 mg/dL [facility] Est Glomerular Filtration Rate >60 >=60 [facility] Comment: The National Kidney Disease Education Program (NKDEP) has recommended all laboratories report estimated GFR (eGFR) along with plasma creatinine measurements to assist you with recognition of early kidney disease. Caveats: ??Plasma creatinine should be at steady-state (unchanged within the past week). For patients multiply eGFR by 1.2.MDRD equation has not been validated for pediatric patients and is only valid for patients with age >= 18 years. At present, NKDEP does NOT recommend using the MDRD equation for drug dosing purposes and pharmacists should continue to use their current dosing methods. In addition, numerical eGFR values greater than 60 ml/min/1.73 square meters should be treated as > 60, and not an exact number due to greater inaccuracies at these higher values. Per NKDEP, they classify normal renal function as any GFR >60ml/min/1.73 square meters; chronic kidney disease when GFR <60, and renal failure when GFR <15. ??This calculation may not be valid for patients with atypical muscle mass (very lean or obese), acute renal failure, and in patients with diabetic kidney disease. References: http://nkdep.nih.gov/resources/NKDEP_Suggestn4Labs_0606_508.pdf http://www.kidney.org/professionals/kls/pdf/faq_gfr.pdf Blood specimen (specimen) 03/27/2011 9:25 PM EST 03/27/2011 9:28 PM EST Silas Llanes MD CHEMISTRY ORDERABLES RASHAD GARCIA * BUN (03/27/2011 9:25 PM EST) Blood Urea Nitrogen 9 8 - 18 mg/dL CERNER MILLENNIUM Blood specimen (specimen) 03/27/2011 9:25 PM EST 03/27/2011 9:28 PM EST Silas Llanes MD CHEMISTRY ORDERABLES Performing Organization Address [facility] de Phone Number CERNER MILLENNIUM * Electrolytes panel (03/27/2011 9:25 PM EST) Pathologist [facility] Sodium 136 135 - 145 mmol/L CERNER MILLENNIUM Potassium 4.2 3.5 - 5.0 mmol/L CERNER MILLENNIUM Comment: Please note: ??Patients with WBC >100,000 may have falsely elevated Potassium levels. ??For accurate Potassium quantification in these patients send serum separator tube (gold top) for subsequent determinations. ??Contact the Clinical Chemistry Laboratory if there are any questions. Chloride 99 98 - 107 mmol/L CERNER MILLENNIUM Carbon Dioxide 28 22 - 31 mmol/L CERNER MILLENNIUM Anion Gap 9 5 - 15 mmol/L CERNER MILLENNIUM Blood specimen (specimen) 03/27/2011 9:25 PM EST 03/27/2011 9:28 PM EST Silas Llanes MD CHEMISTRY ORDERABLES Performing Organization Address [facility] de Phone Number CERNER MILLENNIUM * (ABNORMAL) CBC (with Diff) (03/27/2011 9:25 PM EST) White Blood Cell 10.4(H) 4.0 - 10.0 x10(3)/mc L CERNER MILLENNIUM Red Blood Cell 3.82(L) 3.93 - 5.22 x10(6)/mc L CERNER MILLENNIUM Hemoglobin 12.4 11.2 - 15.7 gm/dL CERNER MILLENNIUM Hematocrit 36.0 34.0 - 45.0 % CERNER MILLENNIUM Mean Cell Volume 94.2(H) 79.0 - 94.0 fL CERNER MILLENNIUM Mean Cell Hemoglobin 32.5(H) 26.6 - 32.2 pg CERNER MILLENNIUM Mean Cell Hemoglobin Concentration 34.4 32.0 - 36.5 gm/dL RASHAD TIPTONIUM Platelet 175 145 - 370 x10(3)/mc L RASHAD BERGENNIUM RDW Standard Deviation 43.7 35.0 - 46.0 fL RASHAD BERGENNIUM RDW coefficient of variation 12.7 10.9 - 14.4 % RASHDA TIPTONIUM Mean Platelet Volume 10.6 9.0 - 12.0 fL RASHAD TIPTONIUM Blood specimen (specimen) 03/27/2011 9:25 PM EST 03/27/2011 9:28 PM EST Silas Llanes MD HEMATOLOGY ORDERABLE S RASHAD GARCIA documented in this encounter Visit Diagnoses Diagnosis Superior mesenteric vein thrombosis- Primary Acute vascular insufficiency of intestine Abdominal pain, right upper quadrant Abdominal pain Abdominal pain, unspecified site Elevated alkaline phosphatase level Other nonspecific abnormal serum enzyme levels Acute pancreatitis Nausea Nausea alone Hallucination, 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 Maximum daily dose of acetaminophen from all sources not to exceed 4,000 mg., Routine Given 04/03/2011 2:40 PM EST 650 mg Given 04/03/2011 5:07 AM EST 650 mg Given 04/02/2011 8:45 PM EST 650 mg alum-mag hydroxide-simeth (MAALOX) 200-200-20 mg/5 mL oral suspension 20 mL 20 mL, Oral, ONCE, 1 dose, On Wed03/27/11 at 2130, STAT Given 03/27/2011 9:18 PM EST 20 mLs bisacodyl (DULCOLAX) EC tablet 10 mg 10 mg, Oral, 2 TIMES DAILY PRN, Starting on 03/28/11 at 1259, Until Wed04/03/11 at 2322, Constipation, Administer if needed per patient's routine or if no bowel movement within 48 hours, Routine Given 03/28/2011 1:42 PM EST 10 mg cloNIDine (CATAPRES) tablet 0.1 mg 0.1 mg, Oral, ONCE, 1 dose, On 03/29/11 at 2000, Routine Given 03/29/2011 8:00 PM EST 0.1 mg enoxaparin (LOVENOX) injection 100 mg 100 mg, Subcutaneous, EVERY 12 HOURS SCHEDULED (2 times per day), First dose on Wed03/31/11 at 1030, Until Discontinued, Routine Given 04/03/2011 9:45 AM EST 100 mg Given 04/02/2011 9:00 PM EST 100 mg Ri ght Lower Quadrant Given 04/02/2011 9:00 AM EST 100 mg enoxaparin (LOVENOX) injection 40 mg 40 mg, Subcutaneous, DAILY, First dose on 03/28/11 at 0900, Until Discontinued, Routine Given 03/31/2011 8:5 6 AM EST 40 mg Given 03/30/2011 8:40 AM EST 40 mg Given 03/29/2011 9:23 AM EST 40 mg esomeprazole (NEXIUM) capsule 40 mg 40 mg, Oral, DAILY, First dose on 03/28/11 at 0900, Until Discontinued, Routine Given 04/03/2011 9:45 AM EST 40 mg Given 04/02/2011 9:00 AM EST 40 mg Given 04/01/2011 8:34 AM EST 40 mg fluticasone-salmeterol (ADVAIR) 100-50 mcg/dose diskus inhaler 1 puff 1 puff, Inhalation, EVERY 12 HOURS, First dose on 03/28/11 at 0900, Until Discontinued, Rinse mouth after administration, Routine Given 04/03/2011 9:45 AM EST 1 puff Given 04/02/2011 8:33 PM EST 1 puff Given 04/02/2011 9:00 AM EST 1 puff HYDROmorphone (DILAUDID) 1 mg/mL INPATIENT CARE MANAGER RN 30 mL Intravenous, INPATIENT CARE MANAGER RN + CONTINUOUS, Starting on 03/28/11 at 1315, Until 03/28/11 at 1356 New Syringe/Cartridge 03/28/2011 1:37 PM EST mL/hr HYDROmorphone (DILAUDID) 1 mg/mL INPATIENT CARE MANAGER RN 30 mL Intravenous, INPATIENT CARE MANAGER RN + CONTINUOUS, Starting on 03/28/11 at 1400, Until 03/29/11 at 1250 New Syringe/Cartridge 03/28/2011 2:02 PM EST mL/hr Rate/Dose Change 03/28/2011 2:01 PM EST mL/hr HYDROmorphone (DILAUDID) 1 mg/mL INPATIENT CARE MANAGER RN 30 mL Intravenous, INPATIENT CARE MANAGER RN + CONTINUOUS, Starting on 03/29/11 at 1315, Until Wed04/01/11 at 0823 New Syringe/Cartridge 03/30/2011 9:05 AM EST mL/hr Rate/Dose Verify 03/30/2011 8:29 AM EST mL/hr Rate/Dose Change 03/29/2011 1:15 PM EST mL/hr HYDROmorphone (DILAUDID) tablet 4-8 mg 4-8 mg, Oral, EVERY 4 HOURS PRN, Starting on Lorri 04/02/11 at 1102, Until Wed04/03/11 at 2322, Pain, Routine Given 04/03/2011 6:30 PM EST 4 mg Given 04/03/2011 4:15 PM EST 4 mg Given 04/03/2011 8:43 AM EST 4 mg HYDROmorphone (DILAUDID) tablet 8-12 mg 8-12 mg, Oral, EVERY 4 HOURS PRN, Starting on Wed04/01/11 at 0822, Until Lorri 04/02/11 at 1102, Pain, Routine Given 04/02/2011 6:48 AM EST 8 mg Given 04/02/2011 12:04 AM EST 8 mg Given 04/01/2011 8:01 PM EST 8 mg HYDROmorphone (PF) (DILAUDID) 2 mg/mL injection 0.2 mg 0.2 mg, Intravenous, ONCE, 1 dose, On Wed03/29/11 at 0500, Routine Given 03/29/2011 4:45 AM EST 0.2 mg HYDROmorphone (PF) (DILAUDID) 2 mg/mL injection 0.2 mg 0.2 mg, Intravenous, ONCE, 1 dose, On Wed03/29/11 at 0715, Routine Given 03/29/2011 6:50 AM EST 0.2 mg HYDROmorphone (PF) (DILAUDID) 2 mg/mL injection 0.2 mg 0.2 mg, Intravenous, ONCE, 1 dose, On Wed03/30/11 at 2215, Routine Given 03/30/2011 10:15 PM EST 0.2 mg HYDROmorphone (PF) (DILAUDID) 2 mg/mL injection 0.4 mg 0.4 mg, Intravenous, ONCE, 1 dose, On Wed03/31/11 at 1015, Routine Given 03/31/2011 10:09 AM EST 0.4 mg HYDROmorphone (PF) (DILAUDID) 2 mg/mL injection 1 dose, Starting on 03/29/11 at 0439, Until 03/29/11 at 0445, ROBERT CARDOSO: Cabinet Override iohexol (OMNIPAQUE) 350 mg/mL injection 38,500 mg 38,500 mg (110 mL), Intravenous, ONCE PRN, 1 dose, Starting on 03/28/11 at 0501, Until 03/28/11 at 0440, Per Protocol, Routine Given 03/28/2011 4:40 AM EST 38,500 mg iohexol (OMNIPAQUE) 350 mg/mL injection 38,500 mg 38,500 mg (110 mL), Intravenous, ONCE PRN, 1 dose, Starting on 03/28/11 at 0735, Until 03/28/11 at 0435, Per Protocol, Routine Given 03/28/2011 4:35 AM EST 38,500 mg iohexol (OMNIPAQUE) radiology oral prep (50 mL of oral contrast) 250 mL 250 mL, Oral, EVERY 1 HOUR PRN, Procedure Prep, Starting on 03/28/11 at 0001, 4 doses, Until Wed04/03/11 at 2322, Mix 1 bottle (50 mL) of Omnipaque 350 with 1 liter (1,000 mL) non-carbonated beverage (preferably water). Close cover and shake vigorously and then refrigerate, if desired. Dispose of any excess preparation in a sink. Properly dispose of container. Administration: (1) 8-ounce cup of contrast 2 hours before scan AND (1) 8-ounce cup of contrast 1 hours before scan AND (1) 8-ounce cup of contrast 1/2 hour before scan AND (1) 8-ounce cup of contrast 15 minutes before scan as tolerated The patient should not eat food or drink any other liquids during the entire period in which they are drinking the contrast. Given 03/28/2011 1:00 AM EST 250 mLs Given 03/28/2011 12:02 AM EST 250 mLs Given 03/27/2011 11:15 PM EST 250 mLs levothyroxine (SYNTHROID) tablet 75 mcg 75 mcg, Oral, DAILY, First dose on 03/28/11 at 0600, Until Discontinued, Routine Given 04/03/2011 6:0 0 AM EST 75 mcg Given 04/02/2011 6:25 AM EST 75 mcg Given 04/01/2011 6:40 AM EST 75 mcg lidocaine HCl (XYLOCAINE) 2 % viscous solution 10 mL 10 mL, Mucous Membrane, ONCE, 1 dose, On Wed03/27/11 at 2130, STAT Given 03/27/2011 9:18 PM EST 10 mLs morphine (PF) 1 mg/mL injection 1-2 mg 1-2 mg, Intravenous, EVERY 4 HOURS PRN, Starting on 03/28/11 at 0404, Until 03/28/11 at 0534, Pain, Routine Given 03/28/2011 4:15 AM EST 2 mg morphine 2 mg/mL carpuject 1-2 mg 1-2 mg, Intravenous, EVERY 4 HOURS PRN, Starting on 03/28/11 at 0534, Until 03/28/11 at 0841, Pain, Routine Given 03/28/2011 8:35 AM EST 2 mg morphine 4 mg/mL carpuject 2-4 mg 2-4 mg, Intravenous, EVERY 1 HOUR PRN, Starting on 03/28/11 at 0841, Until 03/28/11 at 1259, Pain, Routine Given 03/28/2011 12:54 PM EST 4 mg Given 03/28/2011 10:20 AM EST 2 mg Given 03/28/2011 9:47 AM EST 2 mg morphine 4 mg/mL carpuject 4 mg 4 mg, Intravenous, ONCE, 1 dose, On Wed03/27/11 at 2230, STAT Given 03/27/2011 10:20 PM EST 4 mg morphine 4 mg/mL carpuject 4 mg 4 mg, Intravenous, ONCE, 1 dose, On 03/28/11 at 0145, STAT Given 03/28/2011 1:46 AM EST 4 mg morphine 4 mg/mL carpuject 4 mg 4 mg, Intravenous, ONCE, 1 dose, On 03/28/11 at 0315, STAT Given 03/28/2011 2:57 AM EST 4 mg morphine 4 mg/mL carpuject 4 mg 4 mg, Intravenous, ONCE, 1 dose, On Wed03/27/11 at 2115, STAT Given 03/27/2011 9:15 PM EST 4 mg nystatin (MYCOSTATIN) 100,000 unit/mL oral suspension 500,000 Units 500,000 Units, Oral, 4 TIMES DAILY, First dose on Wed03/28/11 at 1700, Until Discontinued, Routine Given 04/03/2011 1:40 PM EST 500,000 Units Given 04/03/2011 9:45 AM EST 500,000 Units Given 04/02/2011 9:00 AM EST 500,000 Units ondansetron (ZOFRAN) 4 mg/2 mL injection 1 dose, Starting on Wed03/28/11 at 0450, Until Wed03/28/11 at 0455, EMILY MAN: Cabinet Override ondansetron (ZOFRAN) injection 4 mg 4 mg, Intravenous, ONCE, 1 dose, On Wed03/27/11 at 2115, STAT Given 03/27/2011 9:19 PM EST 4 mg ondansetron (ZOFRAN) injection 4 mg 4 mg, Intravenous, EVERY 8 HOURS PRN, Starting on Wed03/28/11 at 0100, Until Wed04/03/11 at 2322, Nausea, Vomiting, If multiple antiemetics are ordered, use ondansetron first. May repeat times one in 30 minutes if ineffective. , Routine Given 04/02/2011 5:46 PM EST 4 mg Given 04/01/2011 1:56 PM EST 4 mg Given 03/30/2011 8:00 PM EST 4 mg prochlorperazine (COMPAZINE) tablet 10 mg 10 mg, Oral, EVERY 6 HOURS PRN, Starting on Wed03/28/11 at 1257, Until Wed04/01/11 at 0823, Nausea, Maximum dose: 50 mg / 24 hrs, Routine Given 03/28/2011 7:23 PM EST 10 mg senna-docusate (PERICOLACE) 8.6-50 mg per tablet 1-4 tablet 1-4 tablet, Oral, 2 TIMES DAILY, First dose on Wed03/28/11 at 1315, Until Discontinued, Start with 1 tablet or liquid equivalent orally twice daily and titrate up to achieve: 1. One bowel movement at least every 48 hours, AND 2. Without straining, Routine Given 04/03/2011 9:45 AM EST 2 tablets Given 04/02/2011 9:00 AM EST 2 tablets Given 04/01/2011 8:07 PM EST 2 tablets sodium chloride 0.9 % flush 5 mL 5 mL, Intravenous, EVERY 12 HOURS, First dose on Wed03/28/11 at 0545, Until Discontinued Given 04/03/2011 5:45 AM EST 5 mLs Given 04/02/2011 5:45 PM EST 5 mLs Given 04/02/2011 5:45 AM EST 5 mLs sodium chloride 0.9% 1,000 mL IV bolus 1 L, Intravenous, ONCE, 1 dose, On Wed03/27/11 at 2115 Given 03/27/2011 9:19 PM EST 1 L sodium chloride 0.9% with potassium chloride 20 mEq infusion 125 mL/hr, Intravenous, CONTINUOUS, Starting on Wed03/28/11 at 0545, Until Wed04/02/11 at 1358 New Bag 04/01/2011 10:35 PM EST 125 mL/hr 125 mL/hr New Bag 04/01/2011 2:41 PM EST 125 mL/hr 125 mL/hr New Bag 03/31/2011 10:13 AM EST 125 mL/hr 125 mL/hr warfarin (COUMADIN) tablet 5 mg 5 mg, Oral, EVERY EVENING, First dose on Lorri 04/02/11 at 1700, Until Discontinued, Routine Given 04/03/2011 5:50 PM EST 5 mg Given 04/02/2011 5:00 PM EST 5 mg documented in this encounter Active and Recently Administered Medications Times are shown in EST. Scheduled Medication Order 04/01/2011 04/02/2011 04/03/2011 enoxaparin (LOVENOX) injection 100 mg 100 mg, Subcutaneous, EVERY 12 HOURS SCHEDULED (2 times per day), First dose on Wed03/31/11 at 1030, Until Discontinued, Routine 0834 (Given - Provider: Judy Kaiser, KORY)2007 (Given - Provider: Maribel Bailon RN) 0900 (Given - Provider: Amira Wallace)2099 (Given - Provider: Yolanda Ding RN) 0945 (Given - Provider: Leatha Doherty RN) esomeprazole (NEXIUM) capsule 40 mg (CANCELED) 40 mg, Oral, DAILY, First dose on 03/28/11 at 0900, Until Discontinued, Routine 0834 (Given - Provider: Judy Kaiser RN) 0900 (Given - Provider: Amira Wallace) 0945 (Given - Provider: Leatha Doherty RN) fluticasone-salmeterol (ADVAIR) 100-50 mcg/dose diskus inhaler 1 puff (CANCELED) 1 puff, Inhalation, EVERY 12 HOURS, First dose on 03/28/11 at 0900, Until Discontinued, Rinse mouth after administration, Routine 0834 (Given - Provider: Judy Kaiser RN)2006 (Given - Provider: Maribel Bailon RN) 0900 (Given - Provider: Amira Wallace)2032 (Given - Provider: Yolanda Ding RN) 0945 (Given - Provider: Leatha Doherty RN) levothyroxine (SYNTHROID) tablet 75 mcg (CANCELED) 75 mcg, Oral, DAILY, First dose on 03/28/11 at 0600, Until Discontinued, Routine 0640 (Given - Provider: Yolanda Ding RN) 0625 (Given - Provider: Yolanda Ding RN) 0600 (Given - Provider: Yolanda Ding RN) nystatin (MYCOSTATIN) 100,000 unit/mL oral suspension 500,000 Units 500,000 Units, Oral, 4 TIMES DAILY, First dose on 03/28/11 at 1700, Until Discontinued, Routine 0834 (Given - Provider: Judy Kaiser RN)1249 (Given - Provider: Judy Kaiser RN)1743 (Given - Provider: Judy Kaiser RN)2007 (Given - Provider: Maribel Bailon RN) 0900 (Given - Provider: Amira Wallace)1300 (Not Given - Provider: Nicole Stern RN - Reason: Patient/family refused - Comment: nauseous)1700 (Not Given - Provider: Nicole Stern RN - Reason: Patient/family refused - Comment: episode of emesis)2100 (Not Given - Provider: Yolanda Ding RN - Reason: Patient/family refused) 0945 (Given - Provider: Leatha Doherty RN)1340 (Given - Provider: Leatha Doherty RN)1700 (Not Given - Provider: Leatha Doherty RN - Reason: Patient/family refused) senna-docusate (PERICOLACE) 8.6-50 mg per tablet 1-4 tablet (CANCELED) 1-4 tablet, Oral, 2 TIMES DAILY, First dose on 03/28/11 at 1315, Until Discontinued, Start with 1 tablet or liquid equivalent orally twice daily and titrate up to achieve: 1. One bowel movement at least every 48 hours, AND 2. Without straining, Routine 0834 (Given - Provider: Judy Kaiser RN)2007 (Given - Provider: Maribel Bailon RN) 0900 (Given - Provider: Amira Wallace)2100 (Not Given - Provider: Yolanda Ding RN - Reason: Patient/family refused) 0945 (Given - Provider: Leatha Doherty RN) sodium chloride 0.9 % flush 5 mL (CANCELED) 5 mL, Intravenous, EVERY 12 HOURS, First dose on 03/28/11 at 0545, Until Discontinued 0545 (Given - Provider: Maribel Bailon RN)1737 (Given - Provider: Judy Kaiser RN) 0545 (Given - Provider: Yolanda Ding RN)1745 (Given - Provider: Nicole Stern RN) 0545 (Given - Provider: Yolanda Ding, KORY)1745 (Not Given - Provider: Leatha Doherty RN - Reason: Loss of access) warfarin (COUMADIN) tablet 5 mg 5 mg, Oral, EVERY EVENING, First dose on Lorri 04/02/11 at 1700, Until Discontinued, Routine 1700 (Given - Provider: Nicole Stern RN) 1750 (Given - Provider: Leatha Doherty RN) Continuous Medication Order 04/01/2011 04/02/2011 04/03/2011 sodium chloride 0.9% with potassium chloride 20 mEq infusion (CANCELED) 125 mL/hr, Intravenous, CONTINUOUS, Starting on 03/28/11 at 0545, Until Lorri 04/02/11 at 1358 1441 (New Bag - Provider: Judy Kaiser RN)2235 (New Bag - Provider: Yolanda Ding RN) PRN Medication Order 04/01/2011 04/02/2011 04/03/2011 acetaminophen (TYLENOL) tablet 650 mg (CANCELED) 650 mg, Oral, EVERY 6 HOURS PRN, Starting on 03/28/11 at 0522, Until Wed04/03/11 at 2322, Pain, Fever, Administer for temperature greater than or equal to 38.2 degrees celsius. Maximum daily dose of acetaminophen from all sources not to exceed 4,000 mg., Routine 0648 (Given - Provider: Yolanda Ding RN - Comment: h/a)204 (Given - Provider: Yolanda Ding RN) 0507 (Given - Provider: Yolanda Ding RN)1440 (Given - Provider: Sun Wolf RN) HYDROmorphone (DILAUDID) tablet 4-8 mg 4-8 mg, Oral, EVERY 4 HOURS PRN, Starting on Lorri 04/02/11 at 1102, Until Wed04/03/11 at 2322, Pain, Routine 2252 (Given - Provider: Vanessa Bhatti RN) 0843 (Given - Provider: Amira Wallace)1615 (Given - Provider: Leatha Doherty, KORY)1830 (Given - Provider: Leatha Doherty RN) HYDROmorphone (DILAUDID) tablet 8-12 mg (CANCELED) 8-12 mg, Oral, EVERY 4 HOURS PRN, Starting on 04/01/11 at 0822, Until Lorri 04/02/11 at 1102, Pain, Routine 1035 (Given - Provider: Judy Kaiser, KORY)2000 (Given - Provider: Maribel Bailon RN) 0004 (Given - Provider: Maribel Bailon RN)0648 (Given - Provider: Yolanda Ding RN) ondansetron (ZOFRAN) injection 4 mg (CANCELED)(Linked Group 1) 4 mg, Intravenous, EVERY 8 HOURS PRN, Starting on 03/28/11 at 0100, Until Wed04/03/11 at 2322, Nausea, Vomiting, If multiple antiemetics are ordered, use ondansetron first. May repeat times one in 30 minutes if ineffective. , Routine 1356 (Given - Provider: Judy Kaiser, KORY) 1746 (Given - Provider: Nicole Stern, KORY) Linked Groups Order Group 1: ondansetron (ZOFRAN) tablet 4 mg (CANCELED) 4 mg, Oral, EVERY 8 HOURS PRN, Starting on 03/28/11 at 0100, Until Wed04/03/11 at 2322, Nausea, Vomiting, If multiple antiemetics are ordered, use ondansetron first. PO Preferred. If patient unable to take PO, may give IV if ordered. May repeat times one in 45 minutes if ineffective. , Routine Or ondansetron (ZOFRAN) injection 4 mg (CANCELED)Jump to med 4 mg, Intravenous, EVERY 8 HOURS PRN, Starting on 03/28/11 at 0100, Until Wed04/03/11 at 2322, Nausea, Vomiting, If multiple antiemetics are ordered, use ondansetron first. May repeat times one in 30 minutes if ineffective. , Routine documented in this encounter Care Teams Care Trainer Relationship Specialty Start Date End Date Mario Nowak APRN [address] [place] [address] PCP - General 04/08/10 08/25/11 documented as of this encounter
--- OUTSIDE RECORDS SUMMARY | 2024-01-11 15:29 | XMS_ITS | Encounter Summary ---
Author [facility] [place] [address] Care Team Providers Care Toll Line Mechanic Name Role Phone Rico Aburto MD Primary Care Provider [phone] Encounter Details Date Type Department Care Team (Late st Contact Info) Description 08/31/2011 Orders Only [place] [address] Suresh Angel MD [facility] [place] [address] Abnormal LFTs; Abdominal pain, right upper quadrant Social History Tobacco Use Types Packs/Day Years [...] as of this encounter Results * (ABNORMAL) Gamma GT (08/31/2011 2:54 PM EDT) Gamma Glutamyl Transferase 81(H) 5 - 36 unit/L CERNER MILLENNIUM Blood specimen (specimen) 08/31/2011 2:54 PM EDT 08/31/2011 3:01 PM EDT Narrative Resulting Agency Comment Spec In Lab Tu Barrientos MD CHEMISTRY ORDERABLES Performing Organization Address City/[facility] Co de Phone Number CERNER MILLENNIUM * (ABNORMAL) Hepatic Function Panel (08/31/2011 2:54 PM EDT) Protein, Total 7.1 6.4 - 8.3 gm/dL CERNER MILLENNIUM Albumin 4.2 3.2 - 5.2 gm/dL CERNER MILLENNIUM Aspartate Aminotransferase 45(H) 0 - 30 unit/L CERNER MILLENNIUM Alanine Aminotransferase 32(H) 0 - 30 unit/L CERNER MILLENNIUM Alkaline Phosphatase 107(H) 40 - 104 unit/L CERNER MILLENNIUM Bilirubin, Total 0.6 0.2 - 1.3 mg/dL CERNER MILLENNIUM Bilirubin, Direct 0.1 0.0 - 0.3 mg/dL CERNER MILLENNIUM Blood specimen (specimen) 08/31/2011 2:54 PM EDT 08/31/2011 3:01 PM EDT Narrative Resulting Agency Comment Spec In Lab Tu Barrientos MD CHEMISTRY ORDERABLES Performing Organization Address [facility] Co de Phone Number CERNER MILLENNIUM documented in this encounter Visit Diagnoses Diagnosis Abnormal LFTs Other abnormal blood chemistry Abdominal pain, right upper quadrant documented in this encounter Care Teams Toll Line Mechanic Relationship Specialty Start Date End Date Rico Aburto MD [address] [place] [address] PCP - General 08/26/11 09/14/21 documented as of this encounter
--- OUTSIDE RECORDS SUMMARY | 2024-01-11 15:29 | XMS_ITS | Encounter Summary ---
[place] [address] Care Team Providers Care Paper Twister Tender Name Role Phone Ilana Nowak APRN Primary Care Provider [phone] Reason for Visit * Reason Comments Post Hospital Discharge Encounter Details Date Type Department Care Team (Late st Contact Info) Description 04/20/2011 10:35 AM EST Office [place] [address] Suresh Angel MD [facility] [place] [address] Portal vein thrombosis (Primary Dx) Discharge Disposition: Home Social History [...] Sign Reading Time Taken Comments Blood Pressure 136/84 04/20/2011 10:43 AM EST Pulse 80 04/20/2011 10:43 AM EST Temperature - - Respiratory Rate - - Oxygen Saturation - - Inhaled Oxygen Concentration - - Weight 94.6 kg (208 lb 8.9 oz) 04/20/2011 10:43 AM EST Height 160 cm (5' 3) 04/20/2011 10:43 AM EST Body Mass Index 36.94 04/20/2011 10:43 AM EST documented in this encounter Patient Instructions * Patient Instructions* Suresh Angel - 04/20/2011 11:24 AM EST We will plan for the following today: - we will continue Coumadin for now - I will discuss with Coumadin clinic to see if they can arrange follow up of your Coumadin levels - We will plan on CT in early to mid June as well as consultation with Hematology on same day - Trial of low dose Desipramine at night for burning pain across abdomen documented in this encounter Progress Notes * Tu Barrientos MD - 04/23/2011 10:15 AM EST Reviewed with Dr. Angel. * Suresh Angel - 04/20/2011 1:35 PM EST Gastroenterology and Hepatology Progress Note #. Portal Vein and Splenic Vein thrombosis - hospitalized in [place] February 2011 with RLQ pain, found to [...] no other acute pathology - CT at [facility] [place] upon admission one week later initially interpreted as revealing pancreatitis with CBDdilation (s/p cholecystectomy) - MRCP demonstrated no biliary filling defect but did demonstrated portal and splenic vein thrombosis, likely confirmed by mesenteric duplex scanning - initiated on anticoagulation at that time #. Hypothyroidism #. GERD #. Asthma #. s/p cholecystectomy Interval History: Since hospital discharge Ms. Moreira reports her gripping abdominal pain is markedly improved relative to her hospitalization. She is tolerating a diet and although she did lose some weight (228lbs to 208lbs) this has since stabilized. Ms. Moreira does report some intermittent RLQ discomfort but more so raises concern over her left abdomen near the surgical incision. She reports this pain is burning in quality, like a sunburn sensitive to deep and superficial touch. Ms. Moreira has been having her coumadin managed with her primary provider but she does report some difficulty with managing her INR at present and seeks some advice on how to best proceed. Ms. Moreira otherwise repor ts no nausea, vomiting, hematochezia, or melena. Medications: Current outpatient prescriptions ordered prior to encounter Medication Sig Dispense Refill ??? warfarin (COUMADIN) 5 mg tablet Take 1 tablet by mouth every evening. 30 tablet 3 ??? fluticasone-salmeterol (ADVAIR) 100-50 mcg/dose diskus inhaler Inhale 1 puff into the lungs every 12 hours. ??? albuterol (PROVENTIL HFA;VENTOLIN HFA) 90 mcg/Actuation inhaler Inhale 2 puffs into the lungs every 4 hours as needed. Use with spacer ??? levothyroxine (SYNTHROID) 25 mcg tablet Take 100 mcg by mouth daily. ??? omeprazole (PRILOSEC) 10 mg capsule Take 10 mg by mouth daily. ??? ondansetron (ZOFRAN) 4 mg tablet Take 1 tablet by mouth every 8 hours as needed for Nausea. 20 tablet 0 ??? HYDROmorphone (DILAUDID) 4 mg tablet Take 1-2 tablets by mouth every 4 hours as needed for Pain. 10 tablet 0 ??? nystatin (MYCOSTATIN) 100,000 unit/mL suspension Take 5 mLs by mouth 4 times daily. 500 mL 0 ??? enoxaparin (LOVENOX) 100 mg/mL Syrg injection Inject 1 mL subcutaneously 2 times daily. 28 Syringe 0 Allergies Allergen Reactions ??? House Dust CIS - Allergic Rhinitis ??? Percocet (Oxycodone-acetaminophen) Other (See Comments) Dizziness Interval Social History: No change Physical Examination: Filed Vitals: 04/20/11 1043 BP: 136/84 Pulse: 80 General: Well-appearing, pleasant, appropriate HEENT: NCAT, EOMI, sclera anicteric Chest: CTA anterior and posterior Cor: Regular, no murmurs Abd: Protuberant but non-distended, surgical scars, resolving ecchymosis. Normal bowel sounds, soft, mild discomfort with deep palpation in RLQ and left of umbilicus, no severe pain, no guarding, no rebound Labs/Imaging: Reviewed in EMR Assessment/Recommendation: Amalia Moreira is a 60 year old female with medical history pertinent for hypothyroidism and GERD who is seen today in follow up after recent hospitalization above. In short Ms. Moreira was hospitalized in February with complicated appendicitis requiring hand-assisted right kiersten colectomy complicated by superficial wound infection and now evidence of portal and splenic vein thrombosis. Given the clinical context the venous thrombosis appears to be provoked in context of delayed surgery as well as open procedure. Ms. Moreira reports a family history of blood clot NOS in her mother. I discussed with Ms. Moreira that clearly she needs at least 6 months of anti-coagulation and Iwould like to arrange for repeat CT 3 months post-presentation to see if there has been any resorption or recannalization of her clot. Although her clot was provoked as above, given possible family history I think it would be reasonable to have her see Hematology as well to determine if any additional testing should be performed before considering discontinuing anti-coagulation. I did grief counselor that I would be happy to see if our coumadin clinic would be able to help manage her coumadinwith blood draws regionally and would let her know once I heard back. Finally, regarding her left sided abdominal pain, by description this sounds like neuropathic pain related to prior surgical incision. I have offered Ms. Moreira a trial of low dose Desipramine to be taken a bedtime which she is interested in. documented in this encounter Plan of Treatment Scheduled Procedures Name Priority Associated Diagnoses Date/Ti me EGD, UPPER GI ENDOSCOPY (WRV U 2.09) Esophageal varices without bleeding, unspecified esophageal varices type Portal vein thrombosis documented as of this encounter Results * CT abdomen & pelvis with contrast (08/31/2011 1:23 PM EDT) Anatomical Region Laterality Modality Abdomen, Pelvis Computed Tomogra phy 08/31/2011 1:23 PM EDT Impressions 08/31/2011 6:31 PM EDT IMPRESSION: 1. Decreased inflammatory changes about the pancreatic bed. 2. 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 No free fluid. No free air. 3. Mesenteric inflammatory changes. No significant bowel dilatation. ?? No free fluid, or fluid collection. 4. Degenerative changes of the thoracic spine and hips bilaterally. Narrative 08/31/2011 6:[address] ABDOMEN AND PELVIS WITH CONTRAST: CLINICAL INDICATION: ??60-year-old female with portal venous and splenic venous thrombosis. On anticoagulation times three months. Question interval stability or resolution. TECHNIQUE: ??Contiguous helically acquired axial imaging from the lung bases through the ischial tuberosities following oral and intravenous administration of contrast. COMPARISON: ??Prior CT of the abdomen and pelvis with contrast dated 03/28/11. CONTRAST: ??Omnipaque-350, 110 cc. FINDINGS: ??The lung bases are clear. No pulmonary nodules identified. No focus of airspace consolidation or pleural fluid. CONTRAST-ENHANCED ABDOMEN: ??Liver is homogeneous in attenuation. There are surgical clips in the gallbladder fossa. There is evidence for portal venous thrombus and cavernous ??transformation. Compared to the previous, there is slightly reduced edematous change in the region of the head of the pancreas. The splenic vein is opacified near the spleen, but completely obscured at the mid pancreas. The common bile duct remains prominent at approximately 1 cm. Decreased peripancreatic inflammatory changes; however, there remain edematous changes in the mesentery. No free fluid about the liver. The spleen is not enlarged. Tiny hypodensity persists in the right kidney, too small to further characterize. Extrarenal pelves are noted bilaterally. No collecting system dilatation noted. Abdominal aorta with some mild atherosclerotic change. CONTRAST-ENHANCED PELVIS: ??The bowel is nondilated. An anastomotic staple line is again appreciated in the right anterior abdominal wall. No free air. No free fluid. The sigmoid colon is decompressed. No pelvic lymphadenopathy and no deep inguinal lymphadenopathy. Degenerative changes of both hips are present. Facet arthropathy is present, as well as degenerative intervertebral disc space change noted at T11-T12. Anterolisthesis of L4 on L5. Procedure Note Caterina Nugent MD - 08/31/2011 CT ABDOMEN AND PELVIS WITH CONTRAST: CLINICAL INDICATION: 60-year-old female with portal venous and splenicvenous thrombosis. On anticoagulation times three months. Question intervalstability or resolution. TECHNIQUE: Contiguous helically acquired axial imaging from the lungbases through the ischial tuberosities following oral and intravenousadministration of contrast. COMPARISON: Prior CT of the abdomen and pelvis with contrast dated105/28/10. CONTRAST: Omnipaque-350, 110 cc. FINDINGS: The lung bases are clear. No pulmonary nodules identified. Nofocus of airspace consolidation or pleural fluid. CONTRAST-ENHANCED ABDOMEN: Liver is homogeneous in attenuation. There are surgical clips in the gallbladder fossa. There is evidence for portalvenous thrombus and cavernous transformation. Compared to the previous, there is slightly reduced edematous change in the region of the head of thepancreas. The splenic vein is opacified near the spleen, but completely obscured atthe mid pancreas. The common bile duct remains prominent at approximately 1cm. Decreased peripancreatic inflammatory changes; however, there remainedematous changes in the mesentery. No free fluid about the liver. The spleen is not enlarged. Tiny hypodensity persists in the right kidney, too small tofurther characterize. Extrarenal pelves are noted bilaterally. No collectingsystem dilatation noted. Abdominal aorta with some mild atherosclerotic change. CONTRAST-ENHANCED PELVIS: The bowel is nondilated. An anastomotic stapleline is again appreciated in the right anterior abdominal wall. No free air. Nofree fluid. The sigmoid colon is decompressed. No pelvic lymphadenopathy and nodeep inguinal lymphadenopathy. Degenerative changes of both hips are present.Facet arthropathy is present, as well as degenerative intervertebral disc space change noted at T11-T12. Anterolisthesis of L4 on L5. IMPRESSION IMPRESSION: 1. Decreased inflammatory changes about the pancreatic bed. 2. Cavernous transformation of the portal region with portal veinthrombosis and partial splenic vein thrombosis. No free fluid. No free air. 3. Mesenteric inflammatory changes. No significant bowel dilatation. Nofree fluid, or fluid collection. 4. Degenerative changes of the thoracic spine and hips bilaterally. Tu Barrientos MD IMG CT ORDERABLES documented in this encounter Visit Diagnoses Diagnosis Portal vein thrombosis- Primary Portal vein thrombosis documented in this encounter Care Teams Paper Twister Tender Relationship Specialty Start Date End Date Ilana Nowak APRN [address] [place] [address] PCP - General 04/08/10 08/25/11 documented as of this encounter
--- OUTSIDE RECORDS SUMMARY | 2024-01-11 15:29 | XMS_ITS | Encounter Summary ---
[place] [address] Care Team Providers Care Manager Financial Name Role Phone Ilana Nowak APRN Primary Care Provider [phone] Encounter Details Date Type Department Care Team (Late st Contact Info) Description 07/03/2011 External Results [place] [id number] Provider, Scanning Social History Tobacco Use Types Packs/Day Years [...] Procedure Name Priority Date/Time Associated Diagnosis Comments LAB SCAN Routine 06/18/2011 documented in this encounter Results * Scan Doc: Lab (06/18/2011) Scanning Provider MEDIA MGR SCAN EXT O RDR/RSLT documented in this encounter Visit Diagnoses Not on filedocumented in this encounter Care Teams Manager Financial Relationship Specialty Start Date End Date Ilana Nowak APRN [address] [place] [address] PCP - General 04/08/10 08/25/11 documented as of this encounter
--- OUTSIDE RECORDS SUMMARY | 2024-01-11 15:29 | XMS_ITS | Encounter Summary ---
[place] [address] Care Team Providers Care Welfare Centre Manager Name Role Phone Rico Aburto MD Primary Care Provider [phone] Encounter Details Date Type Department Care Team (Latest Contact Info) Description 08/31/2011 10:56 AM EDT - 08/31/2011 11:59 PM EDT Hospital [place] [address] CLINIC, Tu Carver MD [facility] [address] Portal vein thrombosis Discharge Disposition: Home Social History Tobacco Use [...] daily. 10/15/2021 documented as of this encounter Miscellaneous Notes * Miscellaneous - Provider, Scanning - 09/03/2011 10:20 AM EDT documented in this encounter Plan of Treatment Scheduled Procedures Name Priority Associated Diagnoses Date/Ti me EGD, UPPER GI ENDOSCOPY (WRV U 2.09) Esophageal varices without bleeding, unspecified esophageal varices type Portal vein thrombosis documented as of this encounter Procedures Procedure Name Priority Date/Time Associated Diagnosis Comments CT ABDOMEN AND PELVIS W CONTRAST Routine 08/31/2011 1:23 PM EDT Portal vein thrombosis documented in this encounter Results * CT abdomen & [...] encounter Visit Diagnoses Diagnosis Portal vein thrombosis documented in this encounter Administered Medications Inactive Administered Medications - up to 3 most recent administrations Medication Order MAR Action Action Date Dose Rate Site iohexol (OMNIPAQUE) 350 mg/mL injection 17,500 mg 17,500 mg (50 mL), Oral, ONCE PRN, 1 dose, Starting on 08/31/11 at 1349, Until Wed08/31/11 at 1100, Per Protocol, Routine Given 08/31/2011 11:00 AM EDT 17,500 mg iohexol (OMNIPAQUE) 350 mg/mL injection 38,500 mg 38,500 mg (110 mL), Intravenous, ONCE PRN, 1 dose, Starting on Wed08/31/11 at 1349, Until Wed08/31/11 at 1315, Per Protocol, Routine Given 08/31/2011 1:15 PM EDT 38,500 mg documented in this encounter Care Teams Welfare Centre Manager Relationship Specialty Start Date End Date Rico Aburto MD [address] [place] [address] PCP - General 08/26/11 09/14/21 documented as of this encounter
--- OUTSIDE RECORDS SUMMARY | 2024-01-11 15:29 | XMS_ITS | Encounter Summary ---
Author Organization [facility] [place] [address] Care Team Providers Care Email Marketing Assistant Name Role Phone Ilana Nowak APRN Primary Care Provider [phone] Encounter Details Date Type Department Care Team (Late st Contact Info) Description 08/05/2011 Abstract Family Medicine [facility] [place] [address] Ilana Nowak APRN [address] [place] [address] Abdominal pain, right upper quadrant Social History [...] of this encounter Visit Diagnoses Diagnosis Abdominal pain, right upper quadrant documented in this encounter Care Teams Email Marketing Assistant Relationship Specialty Start Date End Date Ilana Nowak APRN [address] [facility] [place] [address] PCP - General 04/08/10 08/25/11 documented as of this encounter
--- OUTSIDE RECORDS SUMMARY | 2024-01-11 15:29 | XMS_ITS | Encounter Summary ---
Author Organization [facility] [address] Care Team Providers Care Special Machine Stitcher Name Role Phone Unavailable Primary Care Provider Unavailabl e Encounter Details Date Type Department Care Team (Latest Contact Info) Description 10/02/2008 - 10/02/2008 11:59 PM EDT Hospital Encounter [place] [id number] Janice Calle MD [facility] [place] [address] Pain Discharge Disposition: Home Social History Tobacco [...] Comments FILM LIBRARY STORAGE ONLY MAMMO Routine 10/02/2008 12:00 AM EDT Pain documented in this encounter Results * Film Library- Storage Only Mammo (10/02/2008 12:00 AM EDT) Narrative [facility] - 04/15/2016 3:02 PM EST This exam is for storage only and is auto-finalizing. Janice Calle MD [facility] FILM LIBRARY O RDERABLES [place], [place] documented in this encounter Visit Diagnoses Diagnosis Pain Generalized pain documented in this encounter
--- OUTSIDE RECORDS SUMMARY | 2024-01-11 15:29 | XMS_ITS | Encounter Summary ---
[place] [address] Care Team Providers Care Graphic Arts Instructor Name Role Phone Rico Aburto MD Primary Care Provider [phone] Reason for Visit * Reason Comments Advice Only NPW Encounter Details Date Type Department Care Team (Late st Contact Info) Description 08/31/2011 2:15 PM EDT Office Visit Hematology [place] [address] Katharine Saxena MD [facility] [address] [place] [address] Abnormal LFTs (Primary Dx); Mesenteric venous thrombosis Discharge Disposition: Home Social History Tobacco [...] Sign Reading Time Taken Comments Blood Pressure 154/84 08/31/2011 2:08 PM EDT Pulse 85 08/31/2011 2:08 PM EDT Temperature - - Respiratory Rate - - Oxygen Saturation - - Inhaled Oxygen Concentration - - Weight 100 kg (220 lb 7.4 oz) 08/31/2011 2:08 PM EDT Height 159 cm (5' 2.6) 08/31/2011 2:08 PM EDT Body Mass Index 39.56 08/31/2011 2:08 PM EDT documented in this encounter Progress Notes * Katharine Saxena MD - 08/31/2011 3:35 PM EDT [facility] Department of Medicine [place] [address] [facility] THROMBOSIS CONSULTATION DATE OF VISIT 08/31/2011 Patient Amalia Moreira 1950 REFERRING PHYSICIAN SUGEY ANGEL MD PRIMARY CARE PHYSICIAN RICO ABURTO MD REASON FOR CONSULTATION Anticoagulation recommendations HISTORY OF THE PRESENT ILLNESS Amalia Moreira is a 60 y.o. 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 Amalia was hospitalized in [place] in 2010 with acute appendicitis resulting in extensive intraabdominal inflammation and requiring appendectomy and a hemicolectomy. Her course was complicated by a superficial wound infection and, several weeks later, by pancreatitis and portal and splenic vein thrombosis. She was admitted and treated with enoxaparin as a bridge to warfarin and remains on warfarin to current day. She is doing generally well and is having no significant abdominal pain or other symptoms. This is Amalia's first and only episode of venous thrombosis, and there is no family history of VTE.Her thrombosis risk factors are noted below: THROMBOSIS RISK FACTORS Risk Factor Comment Obesity (BMI >30 kg/m2) V/A X Body mass index is 39.56 kg/(m^2). Diabetes V/A Current smoker V/A Estrogen or estrogen/progestin V/A V/A Inflammatory disease V/A X Appendicitis, pancreatitis Recent surgery (<3 months) V X Abdominal surgery Recent hospitalization (<3 mo) V Recent travel (<3 mo) V Period of immobility V Documented thrombophilia V Accident/Trauma V/A Cancer or treatment for cancer V/A Blood transfusion V/A Central venous catheter V Family history (1st degree) V/A Varicose veins/venous insuff. V Hypertension A Hyperlipidemia A Vascular disease A V: Risk factor for venous thrombosis; A: Risk factor for arterial thrombosis In the office today Amalia reports feeling generally well. She has no nausea, vomiting or abdominal pain. She is tolerating food and having no diarrhea or other bowel symptoms. She has tolerated anticoagulation with warfarin well and has had no major bleeding. She is concerned that her INR has fluctuated up and down quite a bit throughout her course. She has no shortness of breath, chest pain, legswelling or pain. She had an episode of pain behind her knee last week and was referred for an ultrasound but she does not know the result of the test. The pain abated on its own and she was told by the provider who saw her for this that she thought she had a Mendoza's cyst. She had lost quite a bit of weight through this medical ordeal but has started gaining it back again. She does not get any regular exercise and is not working on weight reduction at the current time. She had a repeat CT abdomen/pelvis today and is anxious about the results. She thought she was seeing Dr. Angel today, but there is no follow up appointment scheduled with him. PAST MEDICAL HISTORY 1. Venous thromboembolism, 03/2011 as above Portal, splenic vein thrombosis Rx enoxaparin --> warfarin to current day Associated with surgery for appendicitis, colitis, pancreatitis 2. Hypothyroidism 3. Asthma 4. Gastroesophageal reflux OPERATIVE PROCEDURES 1. Appendectomy, hemicolectomy, 02/2011 OBSTETRIC HISTORY ; one first trimester loss MEDICATIONS Current outpatient prescriptions ordered prior to encounter [...] Take 10 mg by mouth daily. ??? acetaminophen (TYLENOL) 325 mg tablet Take 650 mg by mouth every 4 hours as needed. ??? ondansetron (ZOFRAN) 4 mg tablet Take 1 tablet by mouth every 8 hours as needed for Nausea. 20 tablet 0 Current facility-administered medications ordered prior to encounter Medication Dose Route Frequency Provider Last Rate Last Dose ??? iohexol (OMNIPAQUE) 350 mg/mL injection 38,500 mg 110 mL Intravenous Once PRN Juan R Preston MD Last Dose: 50387 mg at 08/31/11 1315 ??? iohexol (OMNIPAQUE) 350 mg/mL injection 17,500 mg 50 mL Oral Once PRN Juan R Preston MD Last Dose: 50507 mg at 08/31/11 1100 ADVERSE DRUG REACTIONS Allergies as of 08/31/2011 - Review Complete 08/31/2011 Allergen Reaction Noted ??? House dust ??? 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 Two adult children (sons) Lifelong nonsmoker No alcohol REVIEW OF SYSTEMS Fevers/chills/sweats No Recent infections No Unexplained weight loss No Headache/lightheadedness/syncope No Sinus pain/pressure No Oral sores/lesions/bleeding No Sore throat/dysphagia No Nosebleeds No Cough/SOB/chest pain/heart racing No Nausea/vomiting/dyspepsia No Abdominal pain No Diarrhea/constipation No Urinary pain, burning, incontinence No Hematuria No Vaginal discharge/bleeding No Skin rashes/ulcers No Back/joint pain/swelling No Leg swelling/pain/redness No Bruising/petechiae/bleeding/melena No Sensory/motor No Polydipsia/polyuria/heat/cold intol No Lumps/bumps/swollen glands No Other Negative except as above PHYSICAL EXAMINATION Filed Vitals: 08/31/11 1408 BP: 154/84 Pulse: 85 Body mass index is 39.56 kg/(m^2). GENERAL: Well-appearing, articulate white female. HEENT: Oropharynx clear; no mucosal lesions, petechiae, bleeding, thrush or ulcers. NECK: Supple; no cervical, supraclavicular or submental adenopathy. BREASTS: Exam deferred. CHEST: Clear to auscultation/percussion. No rales, rhonchi, wheezes. HEART: Regular rate and rhythm; no murmur, rub, gallop ABDOMEN: Soft, mild epigastric tenderness to palpation, no rebound or guarding, no hepatosplenomegaly. Well-healed surgical scar GENITOURINARY: Exam deferred. EXTREMITIES: No clubbing, cyanosis or edema. No erythema, tenderness or palpable cords. No venous varicosities. No skin discoloration or hemosiderin deposits. Peripheral pulses palpable. MUSCULOSKELETAL: Spine nontender. Full ROM all joints. No acutely inflamed joints. SKIN: No ecchymoses, petechiae, ulcers or rashes. LYMPH: No palpable lymph nodes. NEUROLOGIC: Alert, oriented. Speech clear, coherent. No focal deficits noted. PSYCHIATRIC: Appropriate affect, no apparent distress. LABORATORY STUDIES None. RADIOGRAPHIC STUDIES Reviewed above. IMPRESSION Amalia Moreira is a 60 y.o. woman with an episode of provoked mesenteric venous thrombosis who has completed an appropriate course of anticoagulation for this event. Given the provoked nature of this event and the absence of a compelling family history of VTE, there is no indication for thrombophilia testing at this time. PLAN/RECOMMENDATIONS I reviewed my impression with Amalia and her . I reviewed the difference between an idiopathic VTE event and one that may have been precipitated by temporary risk factors (e.g., surgery, trauma, travel, hospitalization, immobilization) and discussed the additive nature of factors such as hereditary or acquired thrombophilia (e.g., factor V Leiden, PT [id number]), ABO blood type (non-O > O), dehydration, obesity, smoking varicose veins, diabetes, cancer, hormone use. I explained that the risk for developing a recurrent VTE is higher when theoriginal event was idiopathic than when it was associated with identifiable risk factors that have subsequently been eliminated. I explained that current ACCP recommendations (2012) for individuals with a provoked VTE such as hers are for 3 months of anticoagulation, as long as the triggering factor has been removed or has abated. Indefinite anticoagulation would only be considered in the event of a recurrent VTE episode, and then, generally only for an idiopathic one. In her case, the VTE event was provoked by intraabdominal inflammation and surgery, thus constituting a temporary risk factorthat has now been mitigated and favoring a finite course of anticoagulation. In fact, the 2012 ACCPguidelines address this issue specifically: The presence of a reversible provoking factor for splanchnic vein thrombosis, such as intraabdominal sepsis or recent surgery, supports stopping anticoagulant therapy after 3 months. Since she has completed 5 months of anticoagulation and her symptoms have resolved, I think it is appropriate to discontinue warfarin at this time. I reassured her that the presence of residual vein occlusion, if it is seen on today's CT scan, is not an indication for continuing anticoagulation. We discussed the fact that although she currently has no absolute indication for chronic ongoing anticoagulation, it would nevertheless be prudent to administer thromboprophylaxis around periods of high risk such as major surgery, trauma, immobilization or hospitalization. In the absence of a contraindication to anticoagulation, pharmacologic thromboprophylaxis is generally recommended (i.e., with heparin, low molecular weight heparin, vitamin K antagonists or one of the new oral agents) ratherthan insertion of a prophylactic IVC filter, which itself is prone to clotting and other complications. I let her know that I would be happy to help out with specific recommendations should the need arise and that, in particular, she should call our office in advance of any elective surgery so thatwe may provide a thromboprophylaxis plan. I reviewed preventive strategies for VTE including weight loss, maintaining a good activity level and avoiding dehydration. I reminded her that although her risk for a recurrent event is low it is not zero, and I reviewed the signs and symptoms of DVT and PE and reminded her to seek medical attention expeditiously should they occur. Right now, in her every day life, her obesity is her major VTE risk factor and I counseled her on weight loss and exercise as a way to modify her risk. Given that her VTE was provoked by a temporary risk factor and there is no compelling family history of VTE, thrombophilia testing is not indicated at this time and I did not offer it today. I called Dr. Angel to review these recommendations. He will obtain LFTs today and will discuss the results of these and her CT scan with her by telephone. Finally, while there is little evidence that aspirin is helpful for venous thromboprophylaxis, it is unequivocally beneficial for preventing arterial thrombosis. Given her age, she may benefit from low dose daily aspirin for coronary thromboprophylaxis but I will leave that up to the discretion of Dr. Aburto. In summary: ?? Disontinue warfarin today ?? No routine ongoing anticoagulation thereafter ?? Aggressive thromboprophylaxis around temporary periods of high risk ?? Seek medical attention in the event of new VTE symptoms ?? No thrombophilia testing ?? Follow up as needed with Dr. Angel ?? Low dose daily aspirin at the discretion of Dr. Aburto Amalia Moreira had the opportunity to ask questions and indicated that all her questions were answered to her satisfaction. While I won't plan to see her back routinely, I will be happy to see her back at any time as appropriate and would especially welcome the opportunity to help with thromboprophylaxis recommendations during temporary periods of high risk should the need arise. Katharine Saxena MD Licensed Surveyor, [facility] documented in this encounter Plan of Treatment Scheduled Procedures Name Priority Associated Diagnoses Date/Ti me EGD, UPPER GI ENDOSCOPY (WRV U 2.09) Esophageal varices without bleeding, unspecified esophageal varices type Portal vein thrombosis documented as of this encounter Procedures Procedure Name Priority Date/Time Associated Diagnosis Comments GAMMA GT Routine 08/31/2011 2:54 PM EDT Abnormal LFTs HEPATIC FUNCTION PANEL Routine 08/31/2011 2:54 PM EDT Abnormal LFTs documented in this encounter Results * (ABNORMAL) Gamma GT (08/31/2011 2:54 PM EDT) Gamma Glutamyl Transferase 81(H) 5 - 36 unit/L RASHAD GARCIA Blood specimen (specimen) 08/31/2011 2:54 PM EDT 08/31/2011 3:01 PM EDT Narrative Resulting Agency Comment Spec In Lab Tu Barrientos MD CHEMISTRY ORDERABLES RASHAD GARCIA * (ABNORMAL) Hepatic Function Panel (08/31/2011 2:54 [...] Barrientos MD CHEMISTRY ORDERABLES Performing Organization Address City/State/[facility] Co de Phone Number RASHAD GARCIA documented in this encounter Visit Diagnoses Diagnosis Abnormal LFTs- Primary Other abnormal blood chemistry Mesenteric venous thrombosis Portal vein thrombosis documented in this encounter Care Teams Graphic Arts Instructor Relationship Specialty Start Date End Date Rico Aburto MD [address] [place] [address] PCP - General 08/26/11 09/14/21 documented as of this encounter
--- OUTSIDE RECORDS SUMMARY | 2024-01-11 15:29 | XMS_ITS | Encounter Summary ---
Author Organization [facility] [place] [address] Care Team Providers Care Certified Coder Name Role Phone Ilana Nowak APRN Primary Care Provider [phone] Encounter Details Date Type Department Care Team (Late st Contact Info) Description 08/20/2011 Abstract Family Medicine at [facility] [place] [address] Katharine Chapman, RN Social History Tobacco Use Types Packs/Day [...] on filedocumented in this encounter Care Teams Certified Coder Relationship Specialty Start Date End Date Ilana Nowak APRN [address] [place] [address] PCP - General 04/08/10 08/25/11 documented as of this encounter
--- OUTSIDE RECORDS SUMMARY | 2024-01-11 15:29 | XMS_ITS | Encounter Summary ---
Author Organization [facility] Address [facility] [place] [address] Care Team Providers Care Director Of Vocational Training Name Role Phone Ilana Nowak APRN Primary Care Provider [phone] Encounter Details Date Type Department Care Team (Latest Contact Info) Description 07/17/2010 - 07/17/2010 11:59 PM EST Hospital Encounter [place] [address] Janice Calle MD [facility] [place] [address] Pain Discharge Disposition: Home Social History Tobacco [...] Comments FILM LIBRARY STORAGE ONLY MAMMO Routine 07/17/2010 12:00 AM EST Pain documented in this encounter Results * Film Library- Storage Only Mammo (07/17/2010 12:00 AM EST) Narrative [facility] - 04/15/2016 3:05 PM EST This exam is for storage only and is auto-finalizing. Janice Calle MD IMG FILM LIBRARY O RDERABLES Performing Organization Address City/State/[facility] Co de Phone Number [place], [place] documented in this encounter Visit Diagnoses Diagnosis Pain Generalized pain documented in this encounter Care Teams Director Of Vocational Training Relationship Specialty Start Date End Date Ilana Nowak APRN [address] [place] [address] PCP - General 04/08/10 08/25/11 documented as of this encounter
--- OUTSIDE RECORDS SUMMARY | 2024-01-11 15:29 | XMS_ITS | Patient Health Record ---
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) Active confirmed Osteoarthritis (188863585) PLAN OF TREATMENT No Information Insurance Providers Payer Name Payer Address Payer Phone Subscriber Number Group Number Insured Name Patient Relationship to Insured Coverage Start Date Coverage End Date MEDICARE [address] [place], [place] [id number] VLADIMIR JONES Self - patient is the insured S-[employer] Y OTHER [address] [place] [address] [id number] VLADIMIR JONES Self - patient is the insured [place] [address] VLADIMIR JONES Self - patient is the [...] History Surgery Date(Month/Year) double knee replacement @ [facility] 11/25/15
[2024-01-11 22:18] LABS: Abs Immature Grans 0.01 10^3/uL (0.0-0.06); Absolute Basophil Count 0.06 10^3/uL (0.0-0.2); Absolute Eosinophil Count 0.41 10^3/uL (0.0-0.7); Absolute Monocyte Count 0.58 10^3/uL (0.1-0.8); Absolute Neutrophil Count 2.12 10^3/uL (1.2-6.7); Basophils % 1.4 %; Eosinophils % 9.6 %; HCT 41.3 % (36.0-46.0); HGB 13.7 g/dL (11.2-15.7); Immature Grans % 0.2 %; Lymphocytes % 25.7 %; MCH 32.7 pg (27.0-33.0); MCHC 33.2 % (32.0-36.0); MCV 99 fL (80-95); MPV 10.8 fL (8.0-11.0); Monocytes % 13.6 %; Neutrophils % 49.5 %; Platelet Count 181 10^3/uL (130-400); RBC 4.19 10^6/uL (3.93-5.22); RDW 13.5 % (11.7-14.6); RDW-SD 48.5 fL; WBC 4.28 10^3/uL (4.4-10.8)
[2024-01-13 15:55] LABS: Lyme Ab w Rflx to Lyme Confirm Negative (Negative)
[2024-01-15 15:18] LABS: Anaplasma phagocytophilum Negative (Negative); B. miyamotoi PCR Negative (Negative); Babesia divergens/MO-1 Negative (Negative); Babesia duncani Negative (Negative); Babesia microti Negative (Negative); Ehrlichia chaffeensis Negative (Negative); Ehrlichia ewingii/canis Negative (Negative); Ehrlichia muris eauclairensis Negative (Negative)
== END 2024-01-11 15:20 | disposition home or self-care (01) ==
LOC: NCHCN 15:19
PROVIDERS: PCP Nurse Practitioner Family; Visit Provider Nurse Practitioner Family
DX: M85.89 Other specified disorders of bone density and structure, multiple sites (principal); R41.82 Altered mental status, unspecified
CPT/HCPCS: 82306; 87798; 85025; 86618

== ENCOUNTER → 2024-02-17 09:49 | Outpatient (BNVA) | payer MEDICARE, SELFPAY | PROVIDERS: PCP Nurse Practitioner Family; Referring Provider Nurse Practitioner Family; Visit Provider Psychiatry & Neurology Neurology | DX: K76.82 Hepatic encephalopathy (principal); H81.393 Other peripheral vertigo, bilateral | CPT/HCPCS: 99215; G2212 ==

== ENCOUNTER → 2024-10-02 14:15 | Outpatient (BNVA) | payer MEDICARE, SELFPAY | PROVIDERS: PCP Nurse Practitioner Family; Referring Provider Nurse Practitioner Family; Visit Provider Nurse Practitioner Adult Health | DX: R68.89 Other general symptoms and signs (principal); G31.84 Mild cognitive impairment of uncertain or unknown etiology | CPT/HCPCS: 99213 ==

== ENCOUNTER 2024-10-20 16:03 | Outpatient (REF) | payer MEDICARE, SELFPAY ==
[2024-10-20 21:57] LABS: Bilirubin Negative (Negative); Blood Negative (Negative); Clarity Clear (Clear); Glucose Negative (Negative); Ketones Negative (Negative); Leukocyte Esterase Negative (Negative); Nitrite Negative (Negative); Specific Gravity 1.015 (1.005-1.025); Urobilinogen 0.2 mg/dL (Up to 0.2)
[2024-10-20 22:30] LABS: ALT 40 U/L (14-59); AST 35 U/L (15-37); Albumin 3.4 g/dL (3.4-5.0); Alkaline Phosphatase 117 U/L (46-116); BUN 9 mg/dL (7-18); Bilirubin, Total 1.4 mg/dL (0.2-1.0); CREATININE 0.6 mg/dL (0.55-1.02); Calculated LDL 141 mg/dL (<100); Chloride 101 mmol/L (98-107); Cholesterol 240 mg/dL (<200); Estimated GFR 94.13 (mL/min/1.73m2); Glucose 75 mg/dL (74-106); HDL Cholesterol 94 mg/dL (>or=50); Magnesium 1.9 mg/dL (1.8-2.4); Sodium 137 mmol/L (136-145); Total Protein 6.3 g/dL (6.4-8.2); Triglyceride 25 mg/dL (<150); Vitamin B12 1982 pg/mL (193-986)
[2024-10-20 22:46] LABS: FREE T4 1.04 ng/dL (0.76-1.46)
[2024-10-21 04:11] LABS: COMMENT (LAB VIEW ONLY) 63.91 mg/dL; Microalb ug/mg Crea 17.2 ug/mg Cr
== END 2024-10-20 16:04 | disposition home or self-care (01) ==
LOC: NCHCN 16:03
PROVIDERS: PCP Nurse Practitioner Family; Visit Provider Nurse Practitioner Family
DX: K76.0 Fatty (change of) liver, not elsewhere classified (principal); I10 Essential (primary) hypertension; E03.9 Hypothyroidism, unspecified; K21.9 Gastro-esophageal reflux disease without esophagitis
CPT/HCPCS: 80053; 80061; 81003; 82043; 82570; 82607; 83735; 84439; 84443

== ENCOUNTER 2024-10-31 03:39 | Outpatient (CLI) | payer MEDICARE, SELFPAY ==
--- NOTE | 2024-11-06 20:45 | PDOC.EEG ---
Neurology EEG EEG: [facility] Department of Neurology LONG-TERM AMBULATORY EEG REPORT Date of Recordin10/31/24 at 10:39:13 to 11/01/24 at 09:12:16 Interpreting Physician: Dr. Cici Maria PCP/Referring Provider: Dia Welch NP Reason for study: Amalia Moreira is a 74 year-old with spells of confusion and difficulty talking concerning for seizure. Current Medications: Home Medications ?Medication ?Instructions ?Recorded ?Confirmed ?Type hcgbmpov-ihwh-ueaj 8 mg-folic 400 1 ea PO DAILY 07/12/17 10/02/24 History mcg-K 50 mcg-lutein 300 mcg tablet (Centrum Silver Women) albuterol sulfate 90 mcg/actuation 2 puff inhalation Q6H PRN 03/05/22 10/02/24 History aerosol inhaler calcium 600 mg-D3 800 unit-mag11 1 tab PO DAILY 03/05/22 10/02/24 History 50 yi-fcqt-wuvnaf-william-s.borat tablet (Caltrate 600-D Plus Minerals) diclofenac sodium 1 % topical gel 2 g topical QID 03/05/22 10/02/24 History fluticasone propionate 230 2 puff inhalation BID 03/05/22 10/02/24 History mcg-salmeterol 21 mcg/actuation HFA inhaler (Advair HFA) pantoprazole 40 mg tablet,delayed 40 mg PO DAILY 03/05/22 10/02/24 History release tramadol 50 mg tablet 50 mg PO DAILY 03/05/22 10/02/24 History rifaximin 550 mg tablet (Xifaxan) 550 mg PO BID 10/13/22 10/02/24 History meclizine 25 mg tablet 25 mg PO TID PRN dizziness #30 tabs 10/20/22 02/17/24 Rx ondansetron 4 mg disintegrating 4 mg PO Q8H PRN nausea and vomiting 01/14/23 10/02/24 History tablet latanoprost 0.005 % eye drops 1 drp ophthalmic (eye) DAILY 10/12/23 10/02/24 History losartan 25 mg tablet 25 mg PO DAILY 10/12/23 10/02/24 History atorvastatin 80 mg tablet 80 mg PO DAILY 01/20/24 02/17/24 History dorzolamide 2 % eye drops 1 drp ophthalmic (eye) TID 02/17/24 10/02/24 History ipratropium 0.5 mg-albuterol 3 mg 3 ml inhalation QID PRN 02/17/24 10/02/24 History (2.5 mg base)/3 mL nebulization soln cetirizine 10 mg capsule (All Day 10 mg PO DAILY PRN 10/02/24 10/02/24 History Allergy (cetirizine)) levothyroxine 25 mcg tablet 125 mcg PO DAILY 10/02/24 10/02/24 History METHODS: An 18-channel digitized electroencephalogram was recorded in the ambulatory setting with video. The 10/20 international system of electrode placement was used and bipolar and referential electrode montages were recorded. In addition to EEG the patient was monitored for EKG and by video. Activation procedures of photic stimulation and hyperventilation were performed if applicable. The duration of the recording was ~22.5 hours. DESCRIPTION OF EEG: Waking background activity: During maximal wakefulness an 8-Hz posterior background rhythm was present which was well-modulated, symmetrical, reactive to eye opening, and of moderate voltage. Faster frequencies were present in the bilateral anterior head regions. There was a normal anterior-posterior voltage gradient. Drowsy and sleeping background activity: During drowsiness, there was attenuation of the posterior dominant background rhythm and vertex waves. Normal stage II and III sleep was present with symmetrical sleep spindles, K-complexes, and vertex waves with slowing of the background rhythm to delta/theta frequencies. REM sleep manifested by rapid lateral eye movements and faster background rhythms was recorded. Arousal was unremarkable. Interictal abnormalities: During wakefulness, there was near constant, non-rhythmic, generalized, moderate-amplitude underlying theta slowing. Ictal findings: No events recorded. Activating Procedures: Photic stimulation was performed which produced no posterior driving response.. Hyperventilation was not performed. EKG: EKG revealed normal sinus rhythm. INTERPRETATION: This long-term EEG is abnormal due to mild generalized, non-rhythmic slowing and slowing of the PDR. PRIOR EEG: none CLINICAL CORRELATION: The above slowing is suggestive of a mild diffuse cerebral encephalopathy of broad differential including toxic-metabolic etiology. No focal regions of cerebral dysfunction or epileptiform activity was present. Clinical correlation is advised. Cici Maria MD Date of service: 10/31/24
== END 2024-11-06 23:59 | disposition home or self-care (01) ==
LOC: RT 03:39
PROVIDERS: PCP Nurse Practitioner Family; Visit Provider Nurse Practitioner Adult Health
DX: R40.4 Transient alteration of awareness (principal); R94.01 Abnormal electroencephalogram [EEG]
CPT/HCPCS: 95714; 95720

== ENCOUNTER → 2024-11-07 13:04 | Outpatient (BNVA) | payer MEDICARE, SELFPAY | PROVIDERS: PCP Nurse Practitioner Family; Referring Provider Nurse Practitioner Family; Visit Provider Psychiatry & Neurology Neurology ==

== ENCOUNTER 2024-11-30 21:35 | Outpatient (REF) | payer MEDICARE, SELFPAY ==
[2024-11-30 22:03] LABS: TSH (W/Ref FT4) 1.03 uIU/mL (0.36-3.74)
== END 2024-11-30 21:36 | disposition home or self-care (01) ==
LOC: NCHCN 21:35
PROVIDERS: PCP Nurse Practitioner Family; Visit Provider Nurse Practitioner Family
DX: E03.9 Hypothyroidism, unspecified (principal)
CPT/HCPCS: 84443

== ENCOUNTER → 2025-01-04 09:50 | Outpatient (BNVA) | payer MEDICARE, SELFPAY | PROVIDERS: PCP Nurse Practitioner Family; Referring Provider Nurse Practitioner Family; Visit Provider Nurse Practitioner Adult Health | DX: G31.84 Mild cognitive impairment of uncertain or unknown etiology (principal); R68.89 Other general symptoms and signs; K76.82 Hepatic encephalopathy | CPT/HCPCS: 99214 ==